=== PATIENT | female | born 1955 | race Caucasian/White ===

== ENCOUNTER 2016-09-19 03:56 | Emergency (ER) | payer MEDICARE, OTHER ==
[~2016-09-19] VITALS: Ht 167.6 cm; Wt 122.0 kg
[~2016-09-19 03:56] MED LIST: ASPI325T PO; BENZ100 PO; CLON0.2T PO; CYCL5TAB PO; ENAL20TA PO; FLUT1SPR5 EACH NARE; IPRA0.02 NEB; LORA1TAB12 PO; METO25TA3 PO; NAPR500T PO; NEBULIZER1 MI1; OMEP40CA2 PO; SOTA120T PO; SPIR25TA PO; SPIRCAP INH; ZOLO25TA PO
[2016-09-19 04:01] VITALS: BP 170/87; PULSE 90; RESP 18; TEMP 97.8; O2SAT 94
[2016-09-19] MEDS ORDERED: ASPIRIN 325 MG TAB PO ONE (05:00)
[2016-09-19] MEDS ORDERED: SODIUM CHLORIDE 0.9% FLUSH 5 ML FLUSH IVF PRN (05:00)
--- NOTE | 2016-09-19 05:24 | RADRPT ---
EXAM DATE/TIME: 09/19/2016 04:55 [facility] COMPARISON: CHEST SINGLE AP, May 01, 2016, 1:57. INDICATIONS : Hypertension. MEDICAL HISTORY : Hypertension. SURGICAL HISTORY : None. ENCOUNTER: Initial ACUITY: 1 day PAIN SCORE: 0/10 LOCATION: Bilateral chest FINDINGS: The cardiac silhouette is enlarged in transverse diameter. The aortic knob is prominent with tortuosi ty of the descending thoracic aorta. There is elevation of the left hemidiaphragm. There has been no significant change when compared to the prior exam. The lungs are free of acute parenchymal opacity. No effusions are identified. CONCLUSION: 1. Cardiomegaly. No acute pulmonary disease. Clarke Hernandez MD on September 19, 2016 at 5:22 Board Certified Radiologist. This report was verified electronically.
[2016-09-19] MEDS: NITROGLYCERIN 0.4 MG SL 25 TABS/BTL SL SCH ×3 (05:31→06:06)
[2016-09-19 05:33] VITALS: BP 233/115; PULSE 65; RESP 18; O2SAT 95
--- NOTE | 2016-09-19 05:41 | PD ---
HPI Chief Complaint: Cardiac Complaint Time Seen by Provider: 04:20 Travel History International Travel<30 days: No Contact w/Intl Traveler<30days: No Traveled to known affect area: No History of Present Illness HPI The the patient 61 years old and arrives complaining of hypertension, labile heart rate, chest "discomfort" palpitations and chronic back pain. Duration is been about 3 days. She also started Zoloft about 3 days prior. She notes her pressure is ranging from 170/110. Labile pulses also been observed evidently region from 40-120. No cough or fever. No nausea vomiting or diaphoresis. PFSH Past Medical History Hx Anticoagulant Therapy: Yes (ASA) Arthritis: Yes Atrial Fibrillation: Yes Anxiety: Yes Depression: No Cardiac Catheterization: No Cardiovascular Problems: Yes (A FIB, HTN, CHF) High Cholesterol: No Congestive Heart Failure: Yes COPD: Yes Diabetes: No Diminished Hearing: No Endocrine: No Gastrointestinal Disorders: Yes GERD: Yes Genitourinary: No Heparin Induced Thrombocytopen: No Hypertension: Yes Immune Disorder: No Implanted Vascular Access Dvce: No Musculoskeletal: Yes (SCOLIOSIS) Neurologic: No Reproductive: No Respiratory: Yes (COPD) Immunizations Current: Yes Myocardial Infarction: No Sickle Cell Disease: No Sleep Apnea: No Thyroid Disease: No Ulcer: No Influenza Vaccination: No Menopausal: Yes : 1 Para: 1 Miscarriage: 0 : 0 Past Surgical History Surgical History: No Previous Surgery Coronary Artery Bypass Graft: No Social History Alcohol Use: No Tobacco Use: No Substance Use: No Allergies-Medications (Allergen,Severity, Reaction): Coded Allergies: Darvocet-N 100 (Verified Allergy, Severe, Swelling, 09/19/16) Swelling, lips , throat Ibuprofen (Verified Allergy, Severe, Swelling, 09/19/16) Swelling lips, throat Morphine (Verified Allergy, Severe, Swelling, 09/19/16) Swelling lips , throat Vicodin (Verified Allergy, Severe, Tachycardia, swelling, 09/19/16) Swelling lips, throat Lortab (Verified Allergy, Intermediate, Chest Pain, 09/19/16) Ventolin (Verified Allergy, Intermediate, Tachycardia, 09/19/16) Amoxicillin (Verified Allergy, Unknown, Atrial Fibrillation, 09/19/16) Protonix (Verified Adverse Reaction, Unknown, Nausea/Vomiting, 09/19/16) Uncoded Allergies: INHALERS FOR COPD (ALL) (Allergy, Severe, PALPITATIONS/DIAPHORESIS, 11/16/13 ) VICOPROFEN (Allergy, Severe, Swelling, 11/16/13) "ANY PAIN PILLS" (Adverse Reaction, Severe, AFIB, 11/16/13) Reported Meds & Prescriptions Reported Meds & Active Scripts Active Zoloft (Sertraline HCl) 25 Mg Tab 25 Mg PO DAILY Take 1 tablet daily x2 weeks and then increase to 2 tablets daily Ipratropium Neb (Ipratropium [place]) 0.5 Mg/2.5 Ml Amp 0.5 Mg NEB Q6HR NEB PRN Lorazepam 1 Mg Tab 1 Mg PO BID PRN Flexeril (Cyclobenzaprine HCl) 5 Mg Tab 1-2 Tab PO HS Reported Omeprazole 40 Mg Cap 40 Mg PO DAILY Nebulizer 1 Mis Mis 1 Ea .ROUTE DIRECTED Flonase Allergy Relief Nasal [place] (Fluticasone Nasal [place]) 50 Mcg/Act [place] 50 Mcg EACH NARE BID Sotalol (Sotalol HCl) 120 Mg Tab 120 Mg PO BID Enalapril (Enalapril Maleate) 20 Mg Tab 20 Mg PO BID Aspirin 325 Mg Tab 325 Mg PO DAILY Review of Systems Except as stated in HPI: all other systems reviewed are Neg Physical Exam Narrative GENERAL: 61-year-old female no acute distress SKIN: Warm and dry. HEAD: Atraumatic. Normocephalic. EYES: Pupils equal and round. No scleral icterus. No injection or drainage. ENT: No nasal bleeding or discharge. Mucous membranes pink and moist. NECK: Trachea midline. No JVD. CARDIOVASCULAR: Regular rate and rhythm. No murmur appreciated. RESPIRATORY: No accessory muscle use. Clear to auscultation. Breath sounds equal bilaterally. GASTROINTESTINAL: Abdomen soft, non-tender, nondistended. Hepatic and splenic margins not palpable. MUSCULOSKELETAL: No obvious deformities. No clubbing. No cyanosis. No edema. NEUROLOGICAL: Awake and alert. No obvious cranial nerve deficits. Motor grossly within normal limits. Normal speech. PSYCHIATRIC: Appropriate mood and affect; insight and judgment normal. Data Data Last Documented VS Vital Signs Date Time Temp Pulse Resp B/P Pulse Ox O2 Delivery O2 Flow Rate FiO2 09/19/16 07:10 56 22 185/85 94 09/19/16 06:15 Nasal Cannula 2 09/19/16 04:01 97.8 Orders Electrocardiogram (09/19/16 04:52) Basic Metabolic Panel (Bmp) (09/19/16 04:52) Ckmb (Isoenzyme) Profile (09/19/16 04:52) Complete Blood Count With Diff (09/19/16 04:52) Magnesium (Mg) (09/19/16 04:52) Prothrombin Time / Inr (Pt) (09/19/16 04:52) Act Partial Throm Time (Ptt) (09/19/16 04:52) Troponin I (09/19/16 04:52) Chest, Single Ap (09/19/16 04:52) Ecg Monitoring (09/19/16 04:52) Iv Access Insert/Monitor (09/19/16 04:52) Oximetry (09/19/16 04:52) Oxygen Administration (09/19/16 04:52) Aspirin (Aspirin) (09/19/16 05:00) Sodium Chloride 0.9% Flush (Ns Flush) (09/19/16 05:00) Nitroglycerin Sl (Nitrostat Sl) (09/19/16 05:00) Enalapril (Vasotec) (09/19/16 05:45) Sotalol (Betapace) (09/19/16 05:42) Labs Laboratory Tests Test 09/19/16 05:30 White Blood Count 9.0 TH/MM3 Red Blood Count 4.81 MIL/MM3 Hemoglobin 13.4 GM/DL Hematocrit 39.3 % Mean Corpuscular Volume 81.7 FL Mean Corpuscular Hemoglobin 27.8 PG Mean Corpuscular Hemoglobin 34.0 % Concent Red Cell Distribution Width 15.2 % Platelet Count 236 TH/MM3 Mean Platelet Volume 8.9 FL Neutrophils (%) (Auto) 71.3 % Lymphocytes (%) (Auto) 19.7 % Monocytes (%) (Auto) 5.8 % Eosinophils (%) (Auto) 2.3 % Basophils (%) (Auto) 0.9 % Neutrophils # (Auto) 6.4 TH/MM3 Lymphocytes # (Auto) 1.8 TH/MM3 Monocytes # (Auto) 0.5 TH/MM3 Eosinophils # (Auto) 0.2 TH/MM3 Basophils # (Auto) 0.1 TH/MM3 CBC Comment DIFF FINAL Differential Comment Prothrombin Time 10.0 SEC Prothromb Time International 0.9 RATIO Ratio Activated Partial 24.9 SEC Thromboplast Time Sodium Level 139 MEQ/L Potassium Level 4.2 MEQ/L Chloride Level 102 MEQ/L Carbon Dioxide Level 30.9 MEQ/L Anion Gap 6 MEQ/L Blood Urea Nitrogen 17 MG/DL Creatinine 0.93 MG/DL Estimat Glomerular Filtration 61 ML/MIN Rate Random Glucose 108 MG/DL Calcium Level 8.8 MG/DL Magnesium Level 2.3 MG/DL Total Creatine Kinase 49 U/L Troponin I LESS THAN 0.02 NG/ML MDM Medical Decision Making Medical Screen Exam Complete: Yes Emergency Medical Condition: Yes Medical Record Reviewed: Yes Differential Diagnosis NSTEMI, unstable angina, coronary vasospasm, PE, PTX, aortic dissection, pericarditis, myocarditis, endocarditis, PNA, esophageal disease, aneurysm, musculoskeletal etiologies, anxiety, cocaine/sympathomimetic abuse Narrative Course CBC & BMP Diagram 09/19/16 05:30 Tn < 0.02 EKG reveals a sinus bradycardia with stable T-wave changes throughout rate 58 normal axis Last 24 hours Impressions Chest X-Ray 09/19/16 0452 Signed Impressions: Service Date/Time: Monday, September 19, 2016 04:55 - CONCLUSION: 1. Cardiomegaly. No acute pulmonary disease. Clarke Hernandez MD Blood pressure has improved. Pt is ready for discharge home. Follow up with primary doctor, Dr Correia. Diagnosis Primary Impression: HTN (hypertension) Qualified Code: I15.9 - Secondary hypertension Additional Impression: Palpitations Referrals: Craig Correia MD 2 days Additional Instructions: You have a choice when it comes to health care, and we are glad that you chose [facility]. Hopefully, we have met your expectations on today's visit. You are welcome to return to [facility] at any time, as we are committed to meeting the health care needs of our community. Med/Other Pt SpecificInfo: No Change to Meds Disposition: DISCHARGE HOME Condition: Stable Thad Bernardo MD Sep 19, 2016 05:41
[2016-09-19] MEDS ORDERED: SOTALOL HCL 80 MG TAB PO STA (05:42)
[2016-09-19] MEDS ORDERED: ENALAPRIL MALEATE 10 MG TAB PO ONE (05:45)
[2016-09-19 05:57] VITALS: BP 204/107; PULSE 61; RESP 18; O2SAT 96
[2016-09-19 05:59] LABS: AUTOMATED NEUTROPHIL # 6.4 TH/MM3 (1.8-7.7); BASOPHIL # 0.1 TH/MM3 (0-0.2); BASOPHIL % 0.9 % (0.0-2.0); EOSINOPHIL # 0.2 TH/MM3 (0-0.4); EOSINOPHIL % 2.3 % (0.0-4.0); HEMATOCRIT 39.3 % (35.0-46.0); HEMO FLAGS DIFF FINAL; LYMPH % 19.7 % (9.0-44.0); LYMPHOCYTE # 1.8 TH/MM3 (1.0-4.8); MEAN CELL VOLUME 81.7 FL (80.0-100.0); MEAN CORPUSCULAR HEMOGLOBIN 27.8 PG (27.0-34.0); MONO % 5.8 % (0.0-8.0); NEUT % 71.3 % (16.0-70.0); PLATELET COUNT 236 TH/MM3 (150-450); RED BLOOD COUNT 4.81 MIL/MM3 (4.00-5.30); RED CELL DISTRIBUTION WIDTH 15.2 % (11.6-17.2)
[2016-09-19 06:04] VITALS: BP 209/104; PULSE 65; RESP 18; O2SAT 98
[2016-09-19 06:15] VITALS: BP 199/97; PULSE 68; RESP 18; O2SAT 95
[2016-09-19 06:18] LABS: APTT (PATIENT) 24.9 SEC (24.3-30.1); INTERNATIONAL NORMALIZED RATIO 0.9 RATIO
[2016-09-19 06:22] LABS: ANION GAP 6 MEQ/L (5-15); BICARBONATE 30.9 MEQ/L (21.0-32.0); BLOOD UREA NITROGEN 17 MG/DL (7-18); CHLORIDE 102 MEQ/L (98-107); GLOMERULAR FILTRATION RATE 61 ML/MIN (>89); MAGNESIUM 2.3 MG/DL (1.5-2.5); POTASSIUM 4.2 MEQ/L (3.5-5.1); SODIUM (NA) 139 MEQ/L (136-145)
[2016-09-19 06:26] LABS: CREATINE KINASE 49 U/L (26-192)
[2016-09-19 07:10] VITALS: BP 185/85
--- NOTE | 2016-09-19 17:20 | EKG ---
Date Performed: 09/19/2016 Time Performed: 04:26:44 PTAGE: 61 years EKG: SINUS BRADYCARDIA NONSPECIFIC ST & T-WAVE ABNORMALITY Compared to previous tracing, ST-T ch anges slightly improved inferiorly and anteriorly, otherwise no significant change BORDERLINE ECG PREVIOUS TRACING : 07/31/2016 12.59 DOCTOR: Dejuan Stone Interpretating Date/Time 09/19/2016 17:19:48
[2016-09-21] MEDS ORDERED: CLON0.1T PO (10:55)
[2016-10-02] MEDS ORDERED: HYDR10TA23 PO (15:21)
[2016-10-23] MEDS ORDERED: OMEP40CA2 PO (15:27)
[2016-11-03] MEDS ORDERED: LORA1TAB12 PO (16:58)
[2016-11-06] MEDS ORDERED: POTA-163 PO (11:55)
[2016-11-06] MEDS ORDERED: FURO40TA PO (11:55)
[2016-11-13] MEDS ORDERED: FURO1TAB62 PO (11:59)
[2016-12-14] MEDS ORDERED: FURO1TAB62 PO (11:52)
[2016-12-14] MEDS ORDERED: CEPH-460 PO (11:52)
[2016-12-14] MEDS ORDERED: SYMB80AE INH (11:52)
[2016-12-14] MEDS ORDERED: DOXY1LIQ3 PO (11:55)
[2016-12-23] MEDS ORDERED: PRED20 PO (15:03)
[2017-01-25] MEDS ORDERED: MELA1TAB18 PO (10:52)
[2017-01-25] MEDS ORDERED: NYST15T TOPICAL (11:02)
== END 2016-09-19 08:06 | disposition home or self-care (01) ==
LOC: NEPE 03:56
DX: I10 Essential (primary) hypertension (principal); R00.2 Palpitations; M54.9 Dorsalgia, unspecified; G89.29 Other chronic pain; R07.89 Other chest pain; I50.9 Heart failure, unspecified; I48.91 Unspecified atrial fibrillation; J44.9 Chronic obstructive pulmonary disease, unspecified; K21.9 Gastro-esophageal reflux disease without esophagitis; R00.1 Bradycardia, unspecified; Z79.01 Long term (current) use of anticoagulants
CPT/HCPCS: 71010; 80048; 82550; 83735; 84484; 85025; 85610; 85730; 93005

== ENCOUNTER 2016-10-07 14:08 | Emergency (ER) | payer MEDICARE, OTHER ==
[~2016-10-07] VITALS: Ht 170.2 cm; Wt 120.0 kg
[~2016-10-07 14:08] MED LIST changes: -BENZ100 PO; -CLON0.2T PO; +HYDR10TA23 PO; -METO25TA3 PO; -NAPR500T PO; -SPIR25TA PO; -SPIRCAP INH
[2016-10-07 14:13] VITALS: BP 177/86; PULSE 63; RESP 14; O2SAT 96
[2016-10-07 15:28] LABS: BASOPHIL # 0.1 TH/MM3 (0-0.2); BASOPHIL % 1.1 % (0.0-2.0); EOSINOPHIL # 0.2 TH/MM3 (0-0.4); EOSINOPHIL % 2.7 % (0.0-4.0); HEMO FLAGS DIFF FINAL; LYMPH % 19.4 % (9.0-44.0); LYMPHOCYTE # 1.7 TH/MM3 (1.0-4.8); MEAN CELL VOLUME 83.3 FL (80.0-100.0); MEAN CORPUSCULAR HEMOGLOBIN 27.3 PG (27.0-34.0); MEAN CORPUSCULAR HGB CONC 32.8 % (32.0-36.0); NEUT % 69.8 % (16.0-70.0); PLATELET COUNT 216 TH/MM3 (150-450); RED BLOOD COUNT 4.68 MIL/MM3 (4.00-5.30); RED CELL DISTRIBUTION WIDTH 15.6 % (11.6-17.2); WHITE BLOOD COUNT 8.6 TH/MM3 (4.0-11.0)
--- NOTE | 2016-10-07 15:28 | PD ---
HPI Chief Complaint: Chest Pain Time Seen by Provider: 15:22 Travel History International Travel<30 days: No Contact w/Intl Traveler<30days: No Traveled to known affect area: No History of Present Illness HPI Patient is a 61-year-old female presenting to emergency department for evaluation of palpitations. Patient states the palpitations woke her up out of sleep this morning. Patient went to her primary doctor this morning due to the palpitations who then sent her to her adaptive physical educator's office. When she got to the adaptive physical educator office she was told that there was nothing they could do and to come to the emergency department. Patient denies any chest pain currently she states that she feels short of breath and flushed has no other complaints at this time. Patient states she went to her adaptive physical educator Dr. Silverman yesterday and her hydralazine was increased from 3 times a day to 4 times a day in order to control her blood pressure. She reports taking aspirin 325 mg several times daily for pain. She denies any caffeine intake or supplements. She states that she did eat 6 chocolate eggs last night. PFSH Past Medical History Hx Anticoagulant Therapy: Yes (ASA) Arthritis: Yes Atrial Fibrillation: Yes Anxiety: Yes Depression: No Cardiac Catheterization: No Cardiovascular Problems: Yes High Cholesterol: No Congestive Heart Failure: Yes COPD: Yes Diabetes: No Diminished Hearing: No Endocrine: No Gastrointestinal Disorders: Yes GERD: Yes Genitourinary: No Heparin Induced Thrombocytopen: No Hypertension: Yes Immune Disorder: No Implanted Vascular Access Dvce: No Musculoskeletal: Yes (SCOLIOSIS) Neurologic: No Reproductive: No Respiratory: Yes Immunizations Current: Yes Myocardial Infarction: No Sickle Cell Disease: No Sleep Apnea: No Thyroid Disease: No Ulcer: No Menopausal: Yes : 1 Para: 1 Miscarriage: 0 : 0 Past Surgical History Coronary Artery Bypass Graft: No Social History Alcohol Use: No Tobacco Use: No Substance Use: No Allergies-Medications (Allergen,Severity, Reaction): Coded Allergies: Darvocet-N 100 (Verified Allergy, Severe, Swelling, 10/12/16) Swelling, lips , throat Ibuprofen (Verified Allergy, Severe, Swelling, 10/12/16) Swelling lips, throat Morphine (Verified Allergy, Severe, Swelling, 10/12/16) Swelling lips , throat Vicodin (Verified Allergy, Severe, Tachycardia, swelling, 10/12/16) Swelling lips, throat Lortab (Verified Allergy, Intermediate, Chest Pain, 10/12/16) Ventolin (Verified Allergy, Intermediate, Tachycardia, 10/12/16) Amoxicillin (Verified Allergy, Unknown, Atrial Fibrillation, 10/12/16) Zoloft (Verified Allergy, Unknown, 10/12/16) Protonix (Verified Adverse Reaction, Unknown, Nausea/Vomiting, 10/12/16) Uncoded Allergies: INHALERS FOR COPD (ALL) (Allergy, Severe, PALPITATIONS/DIAPHORESIS, 11/16/13 ) VICOPROFEN (Allergy, Severe, Swelling, 11/16/13) "ANY PAIN PILLS" (Adverse Reaction, Severe, AFIB, 11/16/13) Reported Meds & Prescriptions Reported Meds & Active Scripts Active Ipratropium Neb (Ipratropium [place]) 0.5 Mg/2.5 Ml Amp 0.5 Mg NEB Q6HR NEB PRN Lorazepam 1 Mg Tab 1 Mg PO BID PRN Reported Hydralazine (Hydralazine HCl) 10 Mg Tab 10 Mg PO QID Take with a meal Omeprazole 40 Mg Cap 40 Mg PO DAILY Nebulizer 1 Mis Mis 1 Ea .ROUTE DIRECTED Flonase Nasal [place] (Fluticasone Nasal [place]) 50 Mcg/Act [place] 50 Mcg EACH NARE BID Sotalol (Sotalol HCl) 120 Mg Tab 120 Mg PO BID Enalapril (Enalapril Maleate) 20 Mg Tab 20 Mg PO BID Aspirin 325 Mg Tab 325 Mg PO DAILY Review of Systems Except as stated in HPI: all other systems reviewed are Neg Cardiovascular: Positive: Other (flushed feeling) Respiratory: Positive: Shortness of Breath Physical Exam Narrative GENERAL: Obese, well-developed, alert female. Resting comfortably in no acute distress. SKIN: Warm and dry. HEAD: Atraumatic. Normocephalic. EYES: Pupils equal and round. No scleral icterus. No injection or drainage. ENT: No nasal bleeding or discharge. Mucous membranes pink and moist. NECK: Trachea midline. No JVD. CARDIOVASCULAR: Regular rate and rhythm. No murmur appreciated. RESPIRATORY: No accessory muscle use. Clear to auscultation. Breath sounds equal bilaterally. GASTROINTESTINAL: Abdomen obese, soft, non-tender, nondistended. Hepatic and splenic margins not palpable. MUSCULOSKELETAL: No obvious deformities. No clubbing. No cyanosis. No edema. NEUROLOGICAL: Awake and alert. No obvious cranial nerve deficits. Motor grossly within normal limits. Normal speech. PSYCHIATRIC: Appropriate mood and affect; insight and judgment normal. Data Data Last Documented VS Orders Electrocardiogram (10/07/16 14:47) Ckmb (Isoenzyme) Profile (10/07/16 14:47) Complete Blood Count With Diff (10/07/16 14:47) Comprehensive Metabolic Panel (10/07/16 14:47) Magnesium (Mg) (10/07/16 14:47) Prothrombin Time / Inr (Pt) (10/07/16 14:47) Act Partial Throm Time (Ptt) (10/07/16 14:47) Troponin I (10/07/16 14:47) Chest, Pa & Lat (10/07/16 14:47) Thyroid Stimulating Hormone (10/07/16 14:49) Free Thyroxine (T4) (10/07/16 14:49) Urinalysis - C+S If Indicated (10/07/16 14:49) Hydralazine Inj (Apresoline Inj) (10/07/16 16:30) MDM Medical Decision Making Medical Screen Exam Complete: Yes Emergency Medical Condition: Yes Interpretation(s) Vital Signs Date Time Temp Pulse Resp B/P Pulse Ox O2 Delivery O2 Flow Rate FiO2 10/07/16 14:13 63 14 177/86 96 Room Air Differential Diagnosis Palpitations versus electrolyte abnormality versus thyroid disorder versus arrhythmia versus other Narrative Course Patient is a 61-year-old female presenting to emergency Department for evaluation of palpitations that woke her out of sleep this morning. EKG, labs, imaging ordered and pending. Workup initiated in triage, care patient will be transferred to a provider when a medical bed is available. Cyndie Bhatti Oct 07, 2016 15:28 arrhythmia versus other Narrative Course Patient is a 61-year-old female presenting to emergency Department for evaluation of palpitations that woke her out of sleep this morning. EKG, labs, imaging ordered and pending. Workup initiated in triage, care patient will be transferred to a provider when a medical bed is available. Cyndie Bhatti Oct 07, 2016 15:28
--- NOTE | 2016-10-07 15:45 | RADRPT ---
EXAM DATE/TIME: 10/07/2016 15:17 [facility] COMPARISON: CHEST PA & LAT, June 30, 2016, 22:08. INDICATIONS : Palpitations. MEDICAL HISTORY : Chronic obstructive pulmonary disease. Congestive heart failure. Hypertension. SURGICAL HISTORY : None. ENCOUNTER: Initial ACUITY: 2 weeks PAIN SCORE: 1/10 LOCATION: Bilateral chest FINDINGS: Frontal and lateral views of the chest demonstrate normal size cardiac silhouette. Lungs are underinf lated and there is a chronically elevated left hemidiaphragm with atelectasis at the left lung base. No pleural effusion, airspace consolidation, or pneumothorax is identified. Bones and soft tissues de monstrate no acute finding. CONCLUSION: Stable chest x-ray with chronically elevated hemidiaphragm and atelectasis at the left lung base. No acute finding is visualized. Festus Valerio MD on October 07, 2016 at 15:41 Board Certified Radiologist. This report was verified electronically.
[2016-10-07 15:47] LABS: BACTERIA, URINE OCC /hpf; BLOOD, URINE NEG (NEG); COMMENT (UR) CULT NOT INDICATED; CULTURE IF INDICATED CULT NOT INDICATED; GLUCOSE,URINE NEG (NEG); KETONE, URINE NEG (NEG); NITRITE,URINE NEG (NEG); PH, URINE 5.5 (5.0-8.5); SQUAMOUS EPITHELIAL CELL URINE <1 /hpf (0-5); URINE COLOR LIGHT-YELLOW (YELLW/STRAW)
[2016-10-07 15:48] LABS: ALT (GPT) 13 U/L (10-53); ANION GAP 8 MEQ/L (5-15); AST (GOT) 9 U/L (15-37); BICARBONATE 28.5 MEQ/L (21.0-32.0); BLOOD UREA NITROGEN 13 MG/DL (7-18); CHLORIDE 105 MEQ/L (98-107); GLOMERULAR FILTRATION RATE 72 ML/MIN (>89); MAGNESIUM 2.2 MG/DL (1.5-2.5); POTASSIUM 4.2 MEQ/L (3.5-5.1); SODIUM (NA) 141 MEQ/L (136-145)
[2016-10-07 15:52] LABS: ALKALINE PHOSPHATASE 89 U/L (45-117); APTT (PATIENT) 24.5 SEC (24.3-30.1); INTERNATIONAL NORMALIZED RATIO 0.9 RATIO; TOTAL BILIRUBIN ADULT 0.3 MG/DL (0.2-1.0)
[2016-10-07 15:58] LABS: FREE T4 1.16 NG/DL (0.76-1.46)
[2016-10-07 16:03] LABS: CREATINE KINASE 35 U/L (26-192)
[2016-10-07 16:05] VITALS: BP 203/103; PULSE 60; RESP 16; O2SAT 95
--- NOTE | 2016-10-07 16:25 | PD ---
Physical Exam Date Seen by Provider: Oct 07, 2016 Time Seen by Provider: 16:20 Narrative 61-year-old female presents to the emergency department for evaluation of palpitations and hypertension. Patient reports history of palpitations. She states these are similar to her previous palpitations. Patient went to her manager documentation's office, but she cannot be seen by her manager documentation, Dr. Silverman so she went to another manager documentation's office who sent her to the emergency department. She currently denies any chest pain. She states that she did have some left upper abdominal pain after eating beans yesterday. However, this went away after she passed gas and burped. She denies any current chest pain. Patient states that she is currently on Enalapril, sotalol , hydralazine for her blood pressure. She did miss her 11 AM dose of hydralazine today. She states her blood pressure has been elevated. Patient states her last stress test was approximately 3 years ago. She denies any history of cardiac catheterization. Patient's workup was initiated in triage is transferred to medical [facility] for further evaluation and disposition. GENERAL: Well-developed well-nourished female patient, ambulatory. Afebrile. SKIN: Warm and dry. HEAD: Normocephalic. Atraumatic. EYES: No scleral icterus. No injection or drainage. NECK: Supple, trachea midline. No JVD or lymphadenopathy. CARDIOVASCULAR: Regular rate and rhythm without murmurs, gallops, or rubs. RESPIRATORY: Breath sounds equal bilaterally. No accessory muscle use. Lungs sounds are clear to auscultation. GASTROINTESTINAL: Abdomen soft, non-tender, nondistended. MUSCULOSKELETAL: No cyanosis, or edema. BACK: Nontender without obvious deformity. No CVA tenderness. Data Data Last Documented VS Vital Signs Date Time Temp Pulse Resp B/P Pulse Ox O2 Delivery O2 Flow Rate FiO2 10/07/16 18:34 69 16 177/83 100 Room Air Orders Electrocardiogram (10/07/16 14:47) Ckmb (Isoenzyme) Profile (10/07/16 14:47) Complete Blood Count With Diff (10/07/16 14:47) Comprehensive Metabolic Panel (10/07/16 14:47) Magnesium (Mg) (10/07/16 14:47) Prothrombin Time / Inr (Pt) (10/07/16 14:47) Act Partial Throm Time (Ptt) (10/07/16 14:47) Troponin I (10/07/16 14:47) Chest, Pa & Lat (10/07/16 14:47) Thyroid Stimulating Hormone (10/07/16 14:49) Free Thyroxine (T4) (10/07/16 14:49) Urinalysis - C+S If Indicated (10/07/16 14:49) Hydralazine Inj (Apresoline Inj) (10/07/16 16:30) Labs Laboratory Tests Test 10/07/16 10/07/16 14:55 15:00 White Blood Count 8.6 TH/MM3 Red Blood Count 4.68 MIL/MM3 Hemoglobin 12.8 GM/DL Hematocrit 39.0 % Mean Corpuscular Volume 83.3 FL Mean Corpuscular Hemoglobin 27.3 PG Mean Corpuscular Hemoglobin 32.8 % Concent Red Cell Distribution Width 15.6 % Platelet Count 216 TH/MM3 Mean Platelet Volume 8.7 FL Neutrophils (%) (Auto) 69.8 % Lymphocytes (%) (Auto) 19.4 % Monocytes (%) (Auto) 7.0 % Eosinophils (%) (Auto) 2.7 % Basophils (%) (Auto) 1.1 % Neutrophils # (Auto) 6.0 TH/MM3 Lymphocytes # (Auto) 1.7 TH/MM3 Monocytes # (Auto) 0.6 TH/MM3 Eosinophils # (Auto) 0.2 TH/MM3 Basophils # (Auto) 0.1 TH/MM3 CBC Comment DIFF FINAL Differential Comment Prothrombin Time 10.0 SEC Prothromb Time International 0.9 RATIO Ratio Activated Partial 24.5 SEC Thromboplast Time Sodium Level 141 MEQ/L Potassium Level 4.2 MEQ/L Chloride Level 105 MEQ/L Carbon Dioxide Level 28.5 MEQ/L Anion Gap 8 MEQ/L Blood Urea Nitrogen 13 MG/DL Creatinine 0.81 MG/DL Estimat Glomerular Filtration 72 ML/MIN Rate Random Glucose 89 MG/DL Calcium Level 9.0 MG/DL Magnesium Level 2.2 MG/DL Total Bilirubin 0.3 MG/DL Aspartate Amino Transf 9 U/L (AST/SGOT) Alanine Aminotransferase 13 U/L (ALT/SGPT) Alkaline Phosphatase 89 U/L Total Creatine Kinase 35 U/L Troponin I LESS THAN 0.02 NG/ML Total Protein 6.7 GM/DL Albumin 3.6 GM/DL Free Thyroxine 1.16 NG/DL Thyroid Stimulating Hormone 3.270 uIU/ML 3rd Gen Urine Color LIGHT-YELLOW Urine Turbidity CLEAR Urine pH 5.[address] [place] 1.008 Urine Protein NEG mg/dL Urine Glucose (UA) NEG mg/dL Urine Ketones NEG mg/dL Urine Occult Blood NEG Urine Nitrite NEG Urine Bilirubin NEG Urine Urobilinogen LESS THAN 2.0 MG/DL Urine Leukocyte Esterase SMALL Urine RBC LESS THAN 1 /hpf Urine WBC 3 /hpf Urine Squamous Epithelial <1 /hpf Cells Urine Bacteria OCC /hpf Microscopic Urinalysis Comment CULT NOT INDICATED MDM Medical Record Reviewed: Yes Supervised Visit with CHARLA: No Differential Diagnosis Cardiac arrhythmia versus atrial for ablation versus hypertension versus ACS versus anxiety Narrative Course 61-year-old female who is a patient of Dr. Silverman's presents to the emergency department for evaluation of palpitations and hypertension. She did miss her 11 AM dose of hydralazine. EKG shows sinus rhythm, heart rate 61, no acute ST changes. CBC shows unremarkable. CMP is unremarkable. Magnesium is 2.2. CK is 35. Troponin is less than 0.02. TSH is 3.270. Coags are unremarkable. Urinalysis shows no acute infection. Patient's blood pressure is elevated 203/103. Patient is given hydralazine [address] Silverman is paged due to this being her patient and she is familiar with her. I spoke to Dr. Silverman who knows the patient very well. She says that she saw her yesterday in the office. She states the patient is stable for discharge home. Patient verbalizes agreement. She will follow up with Dr. Silverman. Diagnosis Primary Impression: HTN (hypertension) Qualified Code: I10 - Essential hypertension Referrals: Malathi Silverman MD call for appointment Patient Instructions: Chronic Hypertension (ED), General Instructions Additional Instruction: Continue medications as prescribed. Follow-up with Dr. Silverman. Return to the emergency department for any acute worsening of symptoms. Med/Other Pt SpecificInfo: No Change to Meds Disposition: 01 DISCHARGE HOME Condition: Stable Nataliia Camejo Oct 07, 2016 16:25
[2016-10-07] MEDS ORDERED: hydrALAZINE HCL 20 MG/ML VIAL IV PUSH ONE (16:30)
[2016-10-07 17:18] VITALS: BP 186/80; PULSE 60; RESP 16; O2SAT 95
[2016-10-07] MEDS ORDERED: HYDR10TA23 PO (17:18)
[2016-10-07 17:54] VITALS: BP 188/96; PULSE 69; RESP 22; O2SAT 97
[2016-10-07 18:34] VITALS: BP 177/83; PULSE 69; RESP 16; O2SAT 100
--- NOTE | 2016-10-08 10:40 | EKG ---
Date Performed: 10/07/2016 Time Performed: 15:00:22 PTAGE: 61 years EKG: Sinus rhythm NONSPECIFIC ST & T-WAVE ABNORMALITY BORDERLINE ECG PREVIOUS TRACING : 09/19/2016 04.26 Compared to prior tracing no significant change DOCTOR: Keith Chew Interpretating Date/Time 10/08/2016 10:39:02
[2016-10-23] MEDS ORDERED: OMEP40CA2 PO (15:27)
[2016-11-03] MEDS ORDERED: LORA1TAB12 PO (16:58)
[2016-11-06] MEDS ORDERED: POTA-163 PO (11:55)
[2016-11-06] MEDS ORDERED: FURO40TA PO (11:55)
[2016-11-13] MEDS ORDERED: FURO1TAB62 PO (11:59)
[2016-12-14] MEDS ORDERED: SYMB80AE INH (11:52)
[2016-12-14] MEDS ORDERED: CEPH-460 PO (11:52)
[2016-12-14] MEDS ORDERED: FURO1TAB62 PO (11:52)
[2016-12-14] MEDS ORDERED: DOXY1LIQ3 PO (11:55)
[2016-12-23] MEDS ORDERED: PRED20 PO (15:03)
[2017-01-25] MEDS ORDERED: MELA1TAB18 PO (10:52)
[2017-01-25] MEDS ORDERED: NYST15T TOPICAL (11:02)
== END 2016-10-07 19:27 | disposition home or self-care (01) ==
LOC: NEPE 14:08
DX: I10 Essential (primary) hypertension (principal); I48.91 Unspecified atrial fibrillation; I50.9 Heart failure, unspecified; Z79.82 Long term (current) use of aspirin
CPT/HCPCS: 71020; 80053; 81001; 82550; 83735; 84439; 84443; 84484; 85025; 85610; 85730; 93005; 96374; 99285; J0360

== ENCOUNTER 2016-12-01 17:43 | Emergency (ER) | payer MEDICARE, OTHER ==
[~2016-12-01] VITALS: Ht 167.6 cm; Wt 129.0 kg
[~2016-12-01 17:43] MED LIST changes: -CYCL5TAB PO; +FURO1TAB62 PO; +POTA-163 PO; -ZOLO25TA PO
[2016-12-01 17:46] VITALS: BP 166/98; PULSE 51; RESP 16; TEMP 98.1; O2SAT 97
--- NOTE | 2016-12-01 17:48 | PD ---
Physical Exam Time Seen by Provider: 17:47 Narrative 61 y/o female presents for evaluation of lightheadedness. She reports that she checked her HR and it was fluctuating between 30-50. Vital signs reviewed. Seen at triage desk. Awaiting bed placement. Data Data Last Documented VS Vital Signs Date Time Temp Pulse Resp B/P Pulse Ox O2 Delivery O2 Flow Rate FiO2 12/01/16 17:46 98.1 51 16 166/98 97 MDM Medical Record Reviewed: Yes Supervised Visit with CHALRA: Junior Hines December 01, 2016 17:48
[2016-12-01] MEDS ORDERED: SODIUM CHLORIDE 0.9% FLUSH 10 ML FLUSH IVF PRN (18:15)
--- NOTE | 2016-12-01 18:23 | PD ---
HPI Chief Complaint: Chest Pain Time Seen by Provider: 18:20 Travel History International Travel<30 days: No Contact w/Intl Traveler<30days: No Traveled to known affect area: No History of Present Illness HPI Patient comes in for evaluation of pulse from the 40s and 50s over the past 2 days. Patient states she thinks is secondary to being started on hydralazine a month ago. Patient checks her blood pressure and pulse frequently throughout the day states its normally in the in the low 50s to low 60s over the past but it has been in the 40s and 50s. Patient reports one episode where she noted her pulse was 39. Patient states this occurred while she had been sitting for approximately 2 hours and then checked her pulse and blood pressure. Patient states after this she got up to go to the bathroom and when she went from sitting to standing she did feel little lightheaded briefly. Patient denies any chest pain, shortness of breath, nausea, vomiting, new numbness or tingling , back pain, headache, dizziness, or change in vision. PFSH Past Medical History Hx Anticoagulant Therapy: Yes (ASA) Arthritis: Yes Atrial Fibrillation: Yes Anxiety: Yes Depression: No Cardiac Catheterization: No Cardiovascular Problems: Yes High Cholesterol: No Congestive Heart Failure: Yes COPD: Yes Diabetes: No Diminished Hearing: No Endocrine: No Gastrointestinal Disorders: Yes GERD: Yes Genitourinary: No Heparin Induced Thrombocytopen: No Hypertension: Yes Immune Disorder: No Implanted Vascular Access Dvce: No Musculoskeletal: Yes (SCOLIOSIS) Neurologic: No Reproductive: No Respiratory: Yes Immunizations Current: Yes Myocardial Infarction: No Sickle Cell Disease: No Sleep Apnea: No Thyroid Disease: No Ulcer: No Menopausal: Yes : 1 Para: 1 Miscarriage: 0 : 0 Past Surgical History Coronary Artery Bypass Graft: No Social History Alcohol Use: No Tobacco Use: No Substance Use: No Allergies-Medications (Allergen,Severity, Reaction): Coded Allergies: Darvocet-N 100 (Verified Allergy, Severe, Swelling, 12/01/16) Swelling, lips , throat Ibuprofen (Verified Allergy, Severe, Swelling, 12/01/16) Swelling lips, throat Morphine (Verified Allergy, Severe, Swelling, 12/01/16) Swelling lips , throat Vicodin (Verified Allergy, Severe, Tachycardia, swelling, 12/01/16) Swelling lips, throat Lortab (Verified Allergy, Intermediate, Chest Pain, 12/01/16) Ventolin (Verified Allergy, Intermediate, Tachycardia, 12/01/16) Amoxicillin (Verified Allergy, Unknown, Atrial Fibrillation, 12/01/16) Zoloft (Verified Allergy, Unknown, 12/01/16) Protonix (Verified Adverse Reaction, Unknown, Nausea/Vomiting, 12/01/16) Uncoded Allergies: INHALERS FOR COPD (ALL) (Allergy, Severe, PALPITATIONS/DIAPHORESIS, 11/16/13 ) VICOPROFEN (Allergy, Severe, Swelling, 11/16/13) "ANY PAIN PILLS" (Adverse Reaction, Severe, AFIB, 11/16/13) Reported Meds & Prescriptions Reported Meds & Active Scripts Active Lasix (Furosemide) 20 Mg Tab 20 Mg PO DAILY PRN Lorazepam 1 Mg Tab 1 Mg PO BID PRN Ipratropium Neb (Ipratropium [place]) 0.5 Mg/2.5 Ml Amp 0.5 Mg NEB Q6HR NEB PRN Reported Ranitidine (Ranitidine HCl) 150 Mg Tab 150 Mg PO BID Omeprazole 40 Mg Cap 40 Mg PO DAILY PRN Hydralazine (Hydralazine HCl) 10 Mg Tab 10 Mg PO QID Take with a meal Flonase Nasal [place] (Fluticasone Nasal [place]) 50 Mcg/Act [place] 1 [place] EACH NARE BID PRN Sotalol (Sotalol HCl) 120 Mg Tab 120 Mg PO BID Enalapril (Enalapril Maleate) 20 Mg Tab 20 Mg PO BID Aspirin 325 Mg Tab 325 Mg PO QID PRN Review of Systems Except as stated in HPI: all other systems reviewed are Neg Physical Exam Narrative GENERAL: Well-developed, overly nourished, in no acute distress, and non-ill appearing. SKIN: Focused skin assessment warm and dry. HEAD: Atraumatic. Normocephalic. EYES: Pupils equal and round. EOMI. No scleral icterus. No injection or drainage. ENT: No nasal bleeding or discharge. Mucous membranes pink and moist. NECK: Trachea midline. Supple. No nuclear rigidity. CARDIOVASCULAR: Regular rate and rhythm. No murmur appreciated. RESPIRATORY: No accessory muscle use. No respiratory distress. Clear to auscultation. Breath sounds equal bilaterally. MUSCULOSKELETAL: No obvious deformities. No clubbing. No cyanosis. No edema. Full range of motion. NEUROLOGICAL: Awake and alert. No obvious cranial nerve deficits. Motor grossly within normal limits. Normal speech. PSYCHIATRIC: Appropriate mood and affect; insight and judgment normal. Data Data Last Documented VS Vital Signs Date Time Temp Pulse Resp B/P Pulse Ox O2 Delivery O2 Flow Rate FiO2 12/01/16 19:04 98.1 52 18 132/63 98 Room Air Orders Electrocardiogram (12/01/16 18:10) Basic Metabolic Panel (Bmp) (12/01/16 18:10) Complete Blood Count With Diff (12/01/16 18:10) Magnesium (Mg) (12/01/16 18:10) Ckmb (Isoenzyme) Profile (12/01/16 18:10) Troponin I (12/01/16 18:10) Act Partial Throm Time (Ptt) (12/01/16 18:10) Prothrombin Time / Inr (Pt) (12/01/16 18:10) Urinalysis - C+S If Indicated (12/01/16 18:10) Chest, Single Ap (12/01/16 18:10) Ecg Monitoring (12/01/16 18:10) Iv Access Insert/Monitor (12/01/16 18:10) Oximetry (12/01/16 18:10) Sodium Chloride 0.9% Flush (Ns Flush) (12/01/16 18:15) Orthostatic Vital Signs (12/01/16 18:10) Labs Laboratory Tests Test 12/01/16 18:30 White Blood Count 8.7 TH/MM3 Red Blood Count 4.92 MIL/MM3 Hemoglobin 13.2 GM/DL Hematocrit 40.6 % Mean Corpuscular Volume 82.6 FL Mean Corpuscular Hemoglobin 26.9 PG Mean Corpuscular Hemoglobin 32.5 % Concent Red Cell Distribution Width 15.2 % Platelet Count 241 TH/MM3 Mean Platelet Volume 8.7 FL Neutrophils (%) (Auto) 75.2 % Lymphocytes (%) (Auto) 15.9 % Monocytes (%) (Auto) 5.7 % Eosinophils (%) (Auto) 2.5 % Basophils (%) (Auto) 0.7 % Neutrophils # (Auto) 6.5 TH/MM3 Lymphocytes # (Auto) 1.4 TH/MM3 Monocytes # (Auto) 0.5 TH/MM3 Eosinophils # (Auto) 0.2 TH/MM3 Basophils # (Auto) 0.1 TH/MM3 CBC Comment DIFF FINAL Differential Comment Prothrombin Time 10.3 SEC Prothromb Time International 0.9 RATIO Ratio Activated Partial 24.7 SEC Thromboplast Time Urine Color LIGHT-YELLOW Urine Turbidity CLEAR Urine pH 6.5 Urine Specific [place] 1.004 Urine Protein NEG mg/dL Urine Glucose (UA) NEG mg/dL Urine Ketones NEG mg/dL Urine Occult Blood NEG Urine Nitrite NEG Urine Bilirubin NEG Urine Urobilinogen LESS THAN 2.0 MG/DL Urine Leukocyte Esterase NEG Microscopic Urinalysis Comment CULT NOT INDICATED Sodium Level 141 MEQ/L Potassium Level 4.6 MEQ/L Chloride Level 102 MEQ/L Carbon Dioxide Level 31.1 MEQ/L Anion Gap 8 MEQ/L Blood Urea Nitrogen 17 MG/DL Creatinine 0.97 MG/DL Estimat Glomerular Filtration 58 ML/MIN Rate Random Glucose 98 MG/DL Calcium Level 8.7 MG/DL Magnesium Level 2.5 MG/DL Total Creatine Kinase 33 U/L Troponin I LESS THAN 0.02 NG/ML MDM Medical Decision Making Medical Screen Exam Complete: Yes Emergency Medical Condition: Yes Interpretation(s) EKG reviewed by Dr. Davis shows sinus bradycardia with ventricular rate of 51. No STEMI. Differential Diagnosis Arrhythmia, electrolyte abnormality, sick sinus syndrome, bradycardia, other Narrative Course Patient in no obvious distress upon re-evaluation. All pertinent laboratory/ Radiology result(s) discussed with patient. Discussed patient with Dr. Gomez prior to discharge, who is in agreement with plan of care and disposition. Any questions/concerns in reference to patient diagnosis/condition discussed and clarified prior to patient's discharge. Reinforced sheer importance of close follow up with patient's primary physician or primary care clinic and/or what job titles mean. Instructed patient to return to ED immediately, if symptoms return /worsen. Pt showed understanding of above instructions. Further instructions and recommendations were detailed in discharge paperwork. Pt ambulated without difficulty out of ED at discharge. Diagnosis Primary Impression: Bradycardia Patient Instructions: Bradycardia (ED), General Instructions Additional Instructions: Follow-up with your primary care physician and/or what job titles mean in 1-2 days for reevaluation. Return to the emergency department if symptoms get worse. Disposition: 01 DISCHARGE HOME Condition: Stable Ozzie Van December 01, 2016 18:23
[2016-12-01 18:36] VITALS: BP_SYST 138; BP_SYST 139; BP_SYST 144; BP_DIAS 78; BP_DIAS 82; BP_DIAS 84
[2016-12-01 18:38] VITALS: O2SAT 99
[2016-12-01 18:42] VITALS: BP 138/78; PULSE 57; O2SAT 96
[2016-12-01 18:53] LABS: AUTOMATED NEUTROPHIL # 6.5 TH/MM3 (1.8-7.7); BASOPHIL # 0.1 TH/MM3 (0-0.2); BASOPHIL % 0.7 % (0.0-2.0); EOSINOPHIL # 0.2 TH/MM3 (0-0.4); EOSINOPHIL % 2.5 % (0.0-4.0); HEMATOCRIT 40.6 % (35.0-46.0); HEMO FLAGS DIFF FINAL; LYMPH % 15.9 % (9.0-44.0); LYMPHOCYTE # 1.4 TH/MM3 (1.0-4.8); MEAN CELL VOLUME 82.6 FL (80.0-100.0); MEAN CORPUSCULAR HEMOGLOBIN 26.9 PG (27.0-34.0); MEAN CORPUSCULAR HGB CONC 32.5 % (32.0-36.0); MONO % 5.7 % (0.0-8.0); NEUT % 75.2 % (16.0-70.0); PLATELET COUNT 241 TH/MM3 (150-450); RED BLOOD COUNT 4.92 MIL/MM3 (4.00-5.30); RED CELL DISTRIBUTION WIDTH 15.2 % (11.6-17.2); WHITE BLOOD COUNT 8.7 TH/MM3 (4.0-11.0)
--- NOTE | 2016-12-01 18:56 | RADRPT ---
EXAM DATE/TIME: 12/01/2016 18:30 [facility] COMPARISON: CHEST PA & LAT, October 07, 2016, 15:17. CHEST SINGLE AP, September 19, 2016, 4:55. INDICATIONS : Chest pressure today. MEDICAL HISTORY : Chronic obstructive pulmonary disease. Congestive heart failure. Hypertension. Atrial fibrillation. SURGICAL HISTORY : None. ENCOUNTER: Initial ACUITY: 1 day PAIN SCORE: 2/10 LOCATION: Bilateral chest FINDINGS: There is elevation of the left hemidiaphragm. This configuration is unchanged. It does obscure the l eft heart border making evaluation of the heart size difficult. The lungs are appear grossly clear. A significant effusion is not seen. CONCLUSION: Stable chest x-ray with elevation of the left he midiaphragm. Festus Rosenberg MD on December 01, 2016 at 18:51 Board Certified Radiologist. This report was verified electronically.
[2016-12-01 19:04] VITALS: BP 132/63; PULSE 52; RESP 18; TEMP 98.1; O2SAT 98
[2016-12-01 19:05] LABS: ANION GAP 8 MEQ/L (5-15); BICARBONATE 31.1 MEQ/L (21.0-32.0); BLOOD UREA NITROGEN 17 MG/DL (7-18); CHLORIDE 102 MEQ/L (98-107); GLOMERULAR FILTRATION RATE 58 ML/MIN (>89); MAGNESIUM 2.5 MG/DL (1.5-2.5); POTASSIUM 4.6 MEQ/L (3.5-5.1); SODIUM (NA) 141 MEQ/L (136-145)
[2016-12-01 19:06] LABS: APTT (PATIENT) 24.7 SEC (24.3-30.1); INTERNATIONAL NORMALIZED RATIO 0.9 RATIO; PROTHROMBIN TIME - PATIENT 10.3 SEC (9.8-11.6)
[2016-12-01 19:11] LABS: CREATINE KINASE 33 U/L (26-192)
[2016-12-01 19:12] LABS: BLOOD, URINE NEG (NEG); GLUCOSE,URINE NEG (NEG); KETONE, URINE NEG (NEG); NITRITE,URINE NEG (NEG); PH, URINE 6.5 (5.0-8.5); URINE COLOR LIGHT-YELLOW (YELLW/STRAW)
[2016-12-01 19:21] LABS: COMMENT (UR) CULT NOT INDICATED; CULTURE IF INDICATED CULT NOT INDICATED
[2016-12-01] MEDS ORDERED: RANI150T PO (19:58)
[2016-12-01] MEDS ORDERED: OMEP40CA2 PO (19:58)
--- NOTE | 2016-12-02 08:48 | EKG ---
Date Performed: 12/01/2016 Time Performed: 17:56:49 PTAGE: 61 years EKG: SINUS BRADYCARDIA POSSIBLE RIGHT VENTRICULAR CONDUCTION DELAY NONSPECIFIC ST & T-WAVE ABNOR MALITY BORDERLINE ECG PREVIOUS TRACING : 10/07/2016 15.00 DOCTOR: Paulo Wallace Interpretating Date/Time 12/02/2016 08:48:36
[2016-12-14] MEDS ORDERED: CEPH-460 PO (11:52)
[2016-12-14] MEDS ORDERED: SYMB80AE INH (11:52)
[2016-12-14] MEDS ORDERED: FURO1TAB62 PO (11:52)
[2016-12-14] MEDS ORDERED: DOXY1LIQ3 PO (11:55)
[2016-12-23] MEDS ORDERED: PRED20 PO (15:03)
[2017-01-25] MEDS ORDERED: MELA1TAB18 PO (10:52)
[2017-01-25] MEDS ORDERED: NYST15T TOPICAL (11:02)
== END 2016-12-01 20:23 | disposition home or self-care (01) ==
LOC: NEPE 17:43
DX: R00.1 Bradycardia, unspecified (principal); I48.91 Unspecified atrial fibrillation; I50.9 Heart failure, unspecified; I10 Essential (primary) hypertension; M41.9 Scoliosis, unspecified; Z79.82 Long term (current) use of aspirin
CPT/HCPCS: 71010; 80048; 81001; 82550; 83735; 84484; 85025; 85610; 85730; 93005

== ENCOUNTER 2016-12-13 15:59 | Emergency (ER) | payer MEDICARE, OTHER ==
[~2016-12-13] VITALS: Ht 167.6 cm; Wt 122.5 kg
[~2016-12-13 15:59] MED LIST changes: -NEBULIZER1 MI1; -POTA-163 PO; +RANI150T PO
[2016-12-13 16:26] VITALS: BP 187/90; PULSE 63; RESP 22; O2SAT 91
[2016-12-13] MEDS ORDERED: SODIUM CHLORIDE 0.9% FLUSH 10 ML FLUSH IVF PRN (16:30)
--- NOTE | 2016-12-13 16:33 | PD ---
HPI Chief Complaint: Respiratory Symptoms Time Seen by Provider: 16:29 Travel History International Travel<30 days: No Contact w/Intl Traveler<30days: No Traveled to known affect area: No History of Present Illness HPI Patient comes in complaining of shortness of breath and choking sensation that began around 2:00 this morning. Patient states she feels as though stuff was running down her throat getting caught causing her to choke and become short of breath. Patient states she contacted her pharmacist to see what over-the- counter medication she could take with her other medications. Patient was advised to come to the emergency department as she could have fluid on her lungs. Patient denies any chest pain, fevers, nausea, vomiting, back pain, abdominal pain, headache, numbness or tingling anywhere. Patient states she is on Lasix for chronic edema in her lower extremities which she took with little improvement of her symptoms. Patient states started with a sore throat last night around 10 PM that she's been gargling for symptomatic relief and seems to be improving. Patient reports that she does take aspirin regularly and took it today. PFSH Past Medical History Hx Anticoagulant Therapy: Yes (ASA) Arthritis: Yes Atrial Fibrillation: Yes Anxiety: Yes Depression: No Cardiac Catheterization: No Cardiovascular Problems: Yes High Cholesterol: No Congestive Heart Failure: Yes COPD: Yes Diabetes: No Diminished Hearing: No Endocrine: No Gastrointestinal Disorders: Yes GERD: Yes Genitourinary: No Heparin Induced Thrombocytopen: No Hypertension: Yes Immune Disorder: No Implanted Vascular Access Dvce: No Musculoskeletal: Yes (SCOLIOSIS) Neurologic: No Reproductive: No Respiratory: Yes Immunizations Current: Yes Myocardial Infarction: No Sickle Cell Disease: No Sleep Apnea: No Thyroid Disease: No Ulcer: No Menopausal: Yes : 1 Para: 1 Miscarriage: 0 : 0 Past Surgical History Coronary Artery Bypass Graft: No Social History Alcohol Use: No Tobacco Use: No Substance Use: No Allergies-Medications (Allergen,Severity, Reaction): Coded Allergies: Darvocet-N 100 (Verified Allergy, Severe, Swelling, 12/01/16) Swelling, lips , throat Ibuprofen (Verified Allergy, Severe, Swelling, 12/01/16) Swelling lips, throat Morphine (Verified Allergy, Severe, Swelling, 12/01/16) Swelling lips , throat Vicodin (Verified Allergy, Severe, Tachycardia, swelling, 12/01/16) Swelling lips, throat Lortab (Verified Allergy, Intermediate, Chest Pain, 12/01/16) Ventolin (Verified Allergy, Intermediate, Tachycardia, 12/01/16) Amoxicillin (Verified Allergy, Unknown, Atrial Fibrillation, 12/01/16) Zoloft (Verified Allergy, Unknown, 12/01/16) Protonix (Verified Adverse Reaction, Unknown, Nausea/Vomiting, 12/01/16) Uncoded Allergies: INHALERS FOR COPD (ALL) (Allergy, Severe, PALPITATIONS/DIAPHORESIS, 11/16/13 ) VICOPROFEN (Allergy, Severe, Swelling, 11/16/13) "ANY PAIN PILLS" (Adverse Reaction, Severe, AFIB, 11/16/13) Reported Meds & Prescriptions Reported Meds & Active Scripts Active Lasix (Furosemide) 20 Mg Tab 20 Mg PO DAILY PRN Lorazepam 1 Mg Tab 1 Mg PO BID PRN Ipratropium Neb (Ipratropium [place]) 0.5 Mg/2.5 Ml Amp 0.5 Mg NEB Q6HR NEB PRN Reported Ranitidine (Ranitidine HCl) 150 Mg Tab 150 Mg PO BID Omeprazole 40 Mg Cap 40 Mg PO DAILY PRN Hydralazine (Hydralazine HCl) 10 Mg Tab 10 Mg PO QID Take with a meal Flonase Nasal [place] (Fluticasone Nasal [place]) 50 Mcg/Act [place] 1 [place] EACH NARE BID PRN Sotalol (Sotalol HCl) 120 Mg Tab 120 Mg PO BID Enalapril (Enalapril Maleate) 20 Mg Tab 20 Mg PO BID Aspirin 325 Mg Tab 325 Mg PO QID PRN Review of Systems Except as stated in HPI: all other systems reviewed are Neg Physical Exam Narrative GENERAL: Well-developed, overly nourished, in no acute distress, and non-ill appearing. SKIN: Focused skin assessment warm and dry. HEAD: Atraumatic. Normocephalic. EYES: Pupils equal and round. EOMI. No scleral icterus. No injection or drainage. ENT: No nasal bleeding or discharge. Mucous membranes pink and moist. NECK: Trachea midline. Supple. No nuclear rigidity. CARDIOVASCULAR: Regular rate and rhythm. No murmur appreciated. RESPIRATORY: No accessory muscle use. No respiratory distress. Clear to auscultation. Breath sounds equal bilaterally. Patient speaking in full sentences without difficulty. O2 sats noted to be 95% on room air. GASTROINTESTINAL: Abdomen soft, non-tender, nondistended. Hepatic and splenic margins not palpable. No pulsatile mass. MUSCULOSKELETAL: No obvious deformities. No clubbing. No cyanosis. 2+ nonpitting edema bilateral lower extremities. Full range of motion. NEUROLOGICAL: Awake and alert. No obvious cranial nerve deficits. Motor grossly within normal limits. Normal speech. PSYCHIATRIC: Appropriate mood and affect; insight and judgment normal. Data Data Last Documented VS Vital Signs Date Time Temp Pulse Resp B/P Pulse Ox O2 Delivery O2 Flow Rate FiO2 12/13/16 16:34 18 96 Room Air 12/13/16 16:29 2 12/13/16 16:26 63 187/90 Orders Complete Blood Count With Diff (12/13/16 16:22) Basic Metabolic Panel (Bmp) (12/13/16 16:22) B-Type Natriuretic Peptide (12/13/16 16:22) Act Partial Throm Time (Ptt) (12/13/16 16:22) Prothrombin Time / Inr (Pt) (12/13/16 16:22) Magnesium (Mg) (12/13/16 16:22) Ckmb (Isoenzyme) Profile (12/13/16 16:22) Troponin I (12/13/16 16:22) Iv Access Insert/Monitor (12/13/16 16:22) Electrocardiogram (12/13/16 16:22) Ecg Monitoring (12/13/16 16:22) Oximetry (12/13/16 16:22) Oxygen Administration (12/13/16 16:22) Chest, Single Ap (12/13/16 16:22) Sodium Chloride 0.9% Flush (Ns Flush) (12/13/16 16:30) Group A Rapid Strep Screen (12/13/16 16:28) Strep Culture (Group A) (12/13/16 16:35) Furosemide Inj (Lasix Inj) (12/13/16 17:45) Labs Laboratory Tests Test 12/13/16 16:30 White Blood Count 12.8 TH/MM3 Red Blood Count 4.91 MIL/MM3 Hemoglobin 12.9 GM/DL Hematocrit 40.8 % Mean Corpuscular Volume 83.2 FL Mean Corpuscular Hemoglobin 26.2 PG Mean Corpuscular Hemoglobin 31.5 % Concent Red Cell Distribution Width 15.0 % Platelet Count 251 TH/MM3 Mean Platelet Volume 8.1 FL Neutrophils (%) (Auto) 79.2 % Lymphocytes (%) (Auto) 11.2 % Monocytes (%) (Auto) 6.7 % Eosinophils (%) (Auto) 2.6 % Basophils (%) (Auto) 0.3 % Neutrophils # (Auto) 10.2 TH/MM3 Lymphocytes # (Auto) 1.4 TH/MM3 Monocytes # (Auto) 0.9 TH/MM3 Eosinophils # (Auto) 0.3 TH/MM3 Basophils # (Auto) 0.0 TH/MM3 CBC Comment DIFF FINAL Differential Comment Prothrombin Time 10.0 SEC Prothromb Time International 0.9 RATIO Ratio Activated Partial 24.0 SEC Thromboplast Time Sodium Level 141 MEQ/L Potassium Level 4.1 MEQ/L Chloride Level 102 MEQ/L Carbon Dioxide Level 30.5 MEQ/L Anion Gap 9 MEQ/L Blood Urea Nitrogen 22 MG/DL Creatinine 0.92 MG/DL Estimat Glomerular Filtration 62 ML/MIN Rate Random Glucose 98 MG/DL Calcium Level 8.6 MG/DL Magnesium Level 2.3 MG/DL Total Creatine Kinase 48 U/L Troponin I LESS THAN 0.02 NG/ML B-Type Natriuretic Peptide 148 PG/ML MDM Medical Decision Making Medical Screen Exam Complete: Yes Emergency Medical Condition: Yes Interpretation(s) EKG reviewed by Dr. Alcaraz shows sinus rhythm with ventricular rate of 62. No STEMI. Chest x-ray read by the radiologist shows: 1. Mild and interstitial edema. 2. Marked elevation left diaphragm stable Differential Diagnosis CHF exacerbation, COPD exacerbation, pneumonia, postnasal drip, acute coronary syndrome, other Narrative Course Patient in no obvious distress upon re-evaluation. All pertinent laboratory/ Radiology result(s) discussed with patient. I discussed patient with Dr. Aclaraz prior to discharge, who recommends giving one dose if IV Lasix 40 mg and out patient follow up. Any questions/concerns in reference to patient diagnosis/condition discussed and clarified prior to patient's discharge. Reinforced sheer importance of close follow up with patient's primary physician or primary care clinic. Instructed patient to return to ED immediately, if symptoms return/worsen. Pt showed understanding of above instructions. Further instructions and recommendations were detailed in discharge paperwork. Pt ambulated without difficulty out of ED at discharge. Diagnosis Primary Impression: Dyspnea Qualified Code: R06.00 - Dyspnea, unspecified type Additional Impression: Cough Patient Instructions: Acute Cough (ED), Dyspnea (ED), General Instructions Additional Instructions: Follow-up with your primary care physician and/or commercial real estate underwriter one to 2 days for reevaluation. Return to the emergency department if symptoms get worse. Disposition: 01 DISCHARGE HOME Condition: Stable Ozzie Van December 13, 2016 16:33
[2016-12-13 16:34] VITALS: RESP 18; O2SAT 96
[2016-12-13 16:46] LABS: AUTOMATED NEUTROPHIL # 10.2 TH/MM3 (1.8-7.7); BASOPHIL % 0.3 % (0.0-2.0); EOSINOPHIL # 0.3 TH/MM3 (0-0.4); EOSINOPHIL % 2.6 % (0.0-4.0); HEMATOCRIT 40.8 % (35.0-46.0); HEMO FLAGS DIFF FINAL; LYMPH % 11.2 % (9.0-44.0); LYMPHOCYTE # 1.4 TH/MM3 (1.0-4.8); MEAN CELL VOLUME 83.2 FL (80.0-100.0); MEAN CORPUSCULAR HEMOGLOBIN 26.2 PG (27.0-34.0); MEAN CORPUSCULAR HGB CONC 31.5 % (32.0-36.0); MONO % 6.7 % (0.0-8.0); NEUT % 79.2 % (16.0-70.0); PLATELET COUNT 251 TH/MM3 (150-450); RED BLOOD COUNT 4.91 MIL/MM3 (4.00-5.30); WHITE BLOOD COUNT 12.8 TH/MM3 (4.0-11.0)
--- NOTE | 2016-12-13 16:50 | RADRPT ---
EXAM DATE/TIME: 12/13/2016 16:32 [facility] COMPARISON: CHEST SINGLE AP, December 01, 2016, 18:30. INDICATIONS : Shortness of breath. MEDICAL HISTORY : Congestive heart failure. Chronic obstructive pulmonary disease. Atrial fibrillation. SURGICAL HISTORY : None. ENCOUNTER: Initial ACUITY: 1 day PAIN SCORE: 0/10 LOCATION: Bilateral chest FINDINGS: There is marked elevation of the left hemidiaphragm. The heart is minimally enlarged. Mild intersti tial edema is evident. The portion of the bony skeleton visualized is unremarkable. CONCLUSION: 1. Mild and interstitial edema. 2. Marked elevation left diaphragm stable Arie Graham MD FACR on December 13, 2016 at 16:46 Board Certified Radiologist. This report was verified electronically.
[2016-12-13 16:58] LABS: INTERNATIONAL NORMALIZED RATIO 0.9 RATIO
[2016-12-13 17:09] LABS: ANION GAP 9 MEQ/L (5-15); BICARBONATE 30.5 MEQ/L (21.0-32.0); BLOOD UREA NITROGEN 22 MG/DL (7-18); CHLORIDE 102 MEQ/L (98-107); GLOMERULAR FILTRATION RATE 62 ML/MIN (>89); MAGNESIUM 2.3 MG/DL (1.5-2.5); POTASSIUM 4.1 MEQ/L (3.5-5.1); SODIUM (NA) 141 MEQ/L (136-145)
[2016-12-13 17:17] LABS: CREATINE KINASE 48 U/L (26-192)
[2016-12-13] MEDS ORDERED: FUROSEMIDE 40 MG/4 ML VIAL IV PUSH ONE (17:45)
[2016-12-14] MEDS ORDERED: FURO1TAB62 PO (11:52)
[2016-12-14] MEDS ORDERED: SYMB80AE INH (11:52)
[2016-12-14] MEDS ORDERED: CEPH-460 PO (11:52)
[2016-12-14] MEDS ORDERED: DOXY1LIQ3 PO (11:55)
--- NOTE | 2016-12-14 16:03 | EKG ---
Date Performed: 12/13/2016 Time Performed: 16:33:02 PTAGE: 61 years EKG: Sinus rhythm WITH SHORT AL INTERVAL NONSPECIFIC T-WAVE ABNORMALITY BORDERLINE ECG PREVIOUS TRACING : 12/01/2016 17.56 Compared to previous tracing, sinus rate has increased. DOCTOR: Anuel Elizabeth Interpretating Date/Time 12/14/2016 16:02:39
[2016-12-23] MEDS ORDERED: PRED20 PO (15:03)
[2017-01-25] MEDS ORDERED: MELA1TAB18 PO (10:52)
[2017-01-25] MEDS ORDERED: NYST15T TOPICAL (11:02)
== END 2016-12-13 18:12 | disposition home or self-care (01) ==
LOC: NEPE 15:59
DX: R06.00 Dyspnea, unspecified (principal); R05 Cough; M41.9 Scoliosis, unspecified; I50.9 Heart failure, unspecified; Z79.82 Long term (current) use of aspirin; J44.9 Chronic obstructive pulmonary disease, unspecified
CPT/HCPCS: 71010; 80048; 82550; 83735; 83880; 84484; 85025; 85610; 85730; 87081; 87880; 93005; 96374; 99285; J1940

== ENCOUNTER 2017-07-19 06:44 | Emergency (ER) | payer MEDICARE, OTHER ==
[~2017-07-19] VITALS: Ht 170.2 cm; Wt 140.0 kg
[~2017-07-19 06:44] MED LIST changes: +ASPI-183 PO; -ASPI325T PO; +HYDR-3798 PO; -HYDR10TA23 PO; +MELA1TAB18 PO; +NYST1000 SWISH-SWAL; +NYST15T TOPICAL; +PATA0.2S EACH EYE; +SYMB80AE INH
[2017-07-19 06:46] VITALS: BP 169/89; PULSE 114; RESP 20; TEMP 99.2; O2SAT 93
[2017-07-19] MEDS ORDERED: SODIUM CHLORIDE 0.9% FLUSH 10 ML FLUSH IVF PRN (07:30)
[2017-07-19] MEDS ORDERED: methylPREDNISolone SOD SUCC 125 MG/2 ML VIAL IV PUSH ONE (07:30)
[2017-07-19] MEDS ORDERED: guaiFENesin E.R. 600 MG TAB PO ONE (07:30)
[2017-07-19 07:53] LABS: AUTOMATED NEUTROPHIL # 7.9 TH/MM3 (1.8-7.7); BASOPHIL # 0.1 TH/MM3 (0-0.2); BASOPHIL % 0.6 % (0.0-2.0); EOSINOPHIL # 0.5 TH/MM3 (0-0.4); EOSINOPHIL % 4.6 % (0.0-4.0); HEMOGLOBIN 12.7 GM/DL (11.6-15.3); LYMPH % 11.2 % (9.0-44.0); LYMPHOCYTE # 1.2 TH/MM3 (1.0-4.8); MEAN CELL VOLUME 83.6 FL (80.0-100.0); MEAN CORPUSCULAR HEMOGLOBIN 27.2 PG (27.0-34.0); MEAN CORPUSCULAR HGB CONC 32.5 % (32.0-36.0); MEAN PLATELET VOLUME 7.9 FL (7.0-11.0); MONO % 8.5 % (0.0-8.0); MONOCYTE # 0.9 TH/MM3 (0-0.9); NEUT % 75.1 % (16.0-70.0); PLATELET COUNT 250 TH/MM3 (150-450); RED BLOOD COUNT 4.66 MIL/MM3 (4.00-5.30); RED CELL DISTRIBUTION WIDTH 15.2 % (11.6-17.2); WHITE BLOOD COUNT 10.6 TH/MM3 (4.0-11.0)
--- NOTE | 2017-07-19 08:00 | RADRPT ---
EXAM DATE/TIME: 07/19/2017 07:29 [facility] COMPARISON: CHEST PA & LAT, June 30, 2016, 22:08. CHEST SINGLE AP, October 11, 2014, 2:26. CHEST SINGLE AP, M ay 2016, 16:32. INDICATIONS : Shortness of breath. MEDICAL HISTORY : Hypertension. Congestive heart failure. Chronic obstructive pulmonary disease. Asthma SURGICAL HISTORY : None. ENCOUNTER: Initial ACUITY: 1 day PAIN SCORE: 0/10 LOCATION: Bilateral chest FINDINGS: A single portable frontal view of the chest shows chronic elevation of the left hemidiaphragm. Left b asilar atelectasis. Remaining lungs are clear. Heart is normal in size. Nodular component to the righ t hilum is long-term stable and felt to relate to the patient's vasculature. CONCLUSION: No acute cardiopulmonary disease. Matty Calderón Jr., MD on July 19, 2017 at 7:56 Board Certified Radiologist. This report was verified electronically.
[2017-07-19] MEDS: MAGNESIUM SULFATE 1 GM PREMIX 100 ML IV SCH ×2 (08:01→09:03)
--- NOTE | 2017-07-19 08:01 | PD ---
HPI . Cough Chief Complaint: Respiratory Distress Time Seen by Provider: 07:23 Travel History International Travel<30 days: No Contact w/Intl Traveler<30days: No Traveled to known affect area: No History of Present Illness HPI Patient presents with chief complaint of cough. She reports a dry cough for the last 3-4 days. It became productive last night. It is associated with a subjective fever. Symptoms are mild. This patient reports a history of COPD, CHF, intermittent atrial fibrillation which prevents her from being able to use a beta agonist. She is on home oxygen at 2 L. PFSH Past Medical History Hx Anticoagulant Therapy: Yes (ASA) Arthritis: Yes Atrial Fibrillation: Yes Anxiety: Yes Depression: No Heart Rhythm Problems: Yes Cardiac Catheterization: No Cardiovascular Problems: Yes High Cholesterol: No Congestive Heart Failure: Yes COPD: Yes Diabetes: No Diminished Hearing: No Endocrine: No Gastrointestinal Disorders: Yes GERD: Yes Genitourinary: No Heparin Induced Thrombocytopen: No Hypertension: Yes Immune Disorder: No Implanted Vascular Access Dvce: No Musculoskeletal: Yes (SCOLIOSIS) Neurologic: No Psychiatric: Yes Reproductive: No Respiratory: Yes Immunizations Current: Yes Myocardial Infarction: No Sickle Cell Disease: No Sleep Apnea: No Thyroid Disease: No Ulcer: No ?: Not Menopausal: Yes : 1 Para: 1 Miscarriage: 0 : 0 Past Surgical History Coronary Artery Bypass Graft: No Family History Family Myocardial Infarction: No Social History Alcohol Use: No Tobacco Use: No Substance Use: No Allergies-Medications (Allergen,Severity, Reaction): Coded Allergies: acetaminophen (Verified Allergy, Severe, Tachycardia, swelling, 07/05/17) Swelling lips, throat hydrocodone (Verified Allergy, Severe, Tachycardia, swelling, 07/05/17) Swelling lips, throat ibuprofen (Verified Allergy, Severe, Swelling, 07/05/17) Swelling lips, throat morphine (Verified Allergy, Severe, Swelling, 07/05/17) Swelling lips , throat propoxyphene (Verified Allergy, Severe, Swelling, 07/05/17) Swelling, lips , throat albuterol (Verified Allergy, Intermediate, Tachycardia, 07/05/17) amoxicillin (Verified Allergy, Unknown, Atrial Fibrillation, 07/05/17) sertraline (Verified Allergy, Unknown, 07/05/17) pantoprazole (Verified Adverse Reaction, Unknown, Nausea/Vomiting, 07/05/17 ) Uncoded Allergies: INHALERS FOR COPD (ALL) (Allergy, Severe, PALPITATIONS/DIAPHORESIS, 11/16/13 ) VICOPROFEN (Allergy, Severe, Swelling, 11/16/13) "ANY PAIN PILLS" (Adverse Reaction, Severe, AFIB, 11/16/13) Reported Meds & Prescriptions Reported Meds & Active Scripts Active Symbicort Inh (Budesonide/Formoterol Fumarate) 80-4.5 Mcg/Act Aero 1 Puff INH Q12HR Hydralazine HCl 10 Mg Tablet 1 Tab PO QID Lasix (Furosemide) 20 Mg Tab 20 Mg PO DAILY PRN Lorazepam 1 Mg Tab 1 Mg PO BID PRN Enalapril (Enalapril Maleate) 20 Mg Tab 20 Mg PO BID Reported Ranitidine (Ranitidine HCl) 150 Mg Tab 150 Mg PO BID Flonase Nasal [place] (Fluticasone Nasal [place]) 50 Mcg/Act [place] 1 [place] EACH NARE BID PRN Sotalol (Sotalol HCl) 120 Mg Tab 120 Mg PO BID Aspirin 325 Mg Tab 325 Mg PO QID PRN Review of Systems Except as stated in HPI: all other systems reviewed are Neg General / Constitutional: Positive: Fever, Chills Respiratory: Positive: Cough, Shortness of Breath, Wheezing Physical Exam Narrative GENERAL: Awake and alert and in no acute distress. SKIN: warm/dry. HEAD: Normocephalic. EYES: Pupils equal and round. No scleral icterus. No injection or drainage. ENT: No nasal bleeding or discharge. Mucous membranes pink and moist. NECK: Trachea midline. Full range of motion without pain.. CARDIOVASCULAR: Regular rate and rhythm. Heart sounds are normal. RESPIRATORY: Speaking in complete sentences off of oxygen. No accessory muscle use. Coarse end-expiratory wheezing. Breath sounds equal bilaterally. GASTROINTESTINAL: Abdomen soft. Nontender. Bowel sounds present. Nondistended. MUSCULOSKELETAL: No obvious deformities. NEUROLOGICAL: Awake and alert. No obvious cranial nerve deficits. Motor grossly within normal limits. Normal speech. PSYCHIATRIC: Appropriate mood and affect; insight and judgment normal. Data Data Last Documented VS Vital Signs Date Time Temp Pulse Resp B/P (MAP) Pulse Ox O2 Delivery O2 Flow Rate FiO2 07/19/17 08:08 97 Nasal Cannula 2.00 07/19/17 08:08 18 07/19/17 07:20 74 07/19/17 06:46 99.2 Orders Orders Complete Blood Count With Diff (07/19/17 07:23) Comprehensive Metabolic Panel (07/19/17 07:23) B-Type Natriuretic Peptide (07/19/17 07:23) Magnesium (Mg) (07/19/17 07:23) Troponin I (07/19/17 07:23) Influenzae A/B Antigen (07/19/17 07:23) Blood Culture (07/19/17 07:23) Iv Access Insert/Monitor (07/19/17 07:23) Electrocardiogram (07/19/17 07:23) Ecg Monitoring (07/19/17 07:23) Oximetry (07/19/17 07:23) Oxygen Administration (07/19/17 07:23) Chest, Single Ap (07/19/17 07:23) Sodium Chloride 0.9% Flush (Ns Flush) (07/19/17 07:30) Methylprednisolone So Succ Inj (Solumedr (07/19/17 07:30) Magnesium Sulfate 1 Gm Premix (Magnesium (07/19/17 07:30) Guaifenesin Er (Mucinex Er) (07/19/17 07:30) Labs Laboratory Tests Test 07/19/17 07:35 White Blood Count 10.6 TH/MM3 Red Blood Count 4.66 MIL/MM3 Hemoglobin 12.7 GM/DL Hematocrit 39.0 % Mean Corpuscular Volume 83.6 FL Mean Corpuscular Hemoglobin 27.2 PG Mean Corpuscular Hemoglobin Concent 32.5 % Red Cell Distribution Width 15.2 % Platelet Count 250 TH/MM3 Mean Platelet Volume 7.9 FL Neutrophils (%) (Auto) 75.1 % Lymphocytes (%) (Auto) 11.2 % Monocytes (%) (Auto) 8.5 % Eosinophils (%) (Auto) 4.6 % Basophils (%) (Auto) 0.6 % Neutrophils # (Auto) 7.9 TH/MM3 Lymphocytes # (Auto) 1.2 TH/MM3 Monocytes # (Auto) 0.9 TH/MM3 Eosinophils # (Auto) 0.5 TH/MM3 Basophils # (Auto) 0.1 TH/MM3 CBC Comment DIFF FINAL Differential Comment Blood Urea Nitrogen 22 MG/DL Creatinine 0.88 MG/DL Random Glucose 113 MG/DL Total Protein 7.4 GM/DL Albumin 3.5 GM/DL Calcium Level 9.2 MG/DL Magnesium Level 2.1 MG/DL Alkaline Phosphatase 92 U/L Aspartate Amino Transf (AST/SGOT) 9 U/L Alanine Aminotransferase (ALT/SGPT) 12 U/L Total Bilirubin 0.4 MG/DL Sodium Level 140 MEQ/L Potassium Level 3.9 MEQ/L Chloride Level 104 MEQ/L Carbon Dioxide Level 30.7 MEQ/L Anion Gap 5 MEQ/L Estimat Glomerular Filtration Rate 65 ML/MIN Troponin I LESS THAN 0.02 NG/ML B-Type Natriuretic Peptide 31 PG/ML MDM Medical Decision Making Medical Screen Exam Complete: Yes Emergency Medical Condition: Yes Interpretation(s) EKG shows a normal sinus rhythm with no acute ischemic changes. Differential Diagnosis Differential diagnosis includes but is not limited to viral respiratory illness , bronchitis, pneumonia, allergies, CHF, asthma/COPD. Narrative Course This patient presents with the chief complaint of a productive cough. She is wheezing but states that she cannot take beta agonist secondary to intermittent atrial fibrillation. I have ordered IV Solu-Medrol, IV magnesium and oral guaifenesin. Workup to rule out pneumonia or CHF is pending. Last Impressions Chest X-Ray 07/19/17722 Signed Impressions: Service Date/Time: Wednesday, July 19, 2017 07:29 - CONCLUSION: No acute cardiopulmonary disease. Matty Calderón Jr., MD The chest x-ray was independently viewed by me. She has an elevated left hemidiaphragm. CBC Diagram 07/19/17 07:35 She does not meet SIRS criteria. Flu screen neg. BMP Diagram 07/19/17 07:35 Total Protein 7.4, Albumin 3.5, Calcium Level 9.2, Magnesium Level 2.1, Alkaline Phosphatase 92, Aspartate Amino Transf (AST/SGOT) 9 L, Alanine Aminotransferase (ALT/SGPT) 12, Total Bilirubin 0.4 trop < 0.02 BNP 31 This patient has no objective concerning respiratory issues. Her chest x-ray and labs are acceptable. She is able to speak to me in complete sentences off of oxygen even though she uses oxygen at home continuously. She is stable for discharge to home. Sepsis Criteria SIRS Criteria (2 or more): Heart rate over 90 Diagnosis Primary Impression: Dyspnea Qualified Codes: R06.00 - Dyspnea, unspecified Additional Impression: COPD (chronic obstructive pulmonary disease) Qualified Codes: J44.1 - Chronic obstructive pulmonary disease with (acute) exacerbation Patient Instructions: COPD (Chronic Obstructive Pulmonary Disease) (DC), General Instructions Med/Other Pt SpecificInfo: Prescription(s) given Scripts Guaifenesin ER 12 HR (Guaifenesin ER 12 HR) 1,200 Mg [place] 1200 MG PO BID for Chest Congestion/Cough, #60 TAB 0 Refills Prov: Riri Tang MD 07/19/17 Prednisone (48) 10 mg tab Dose Pack (Prednisone (48) 10 mg tab Dose Pack) 10 Mg Dspk 10 MG PO DIRECTED for Inflammation, #1 DSPK 0 Refills Prov: Riri Tang MD 07/19/17 Budesonide-Formoterol Inh (Symbicort Inh) 80-4.5 Mcg/Act Aero 1 PUFF INH Q12HR for Asthma Management, #1 INHALER 1 Refill Prov: Riri Tang MD 07/19/17 Disposition: 01 DISCHARGE HOME Condition: Stable Riri Tang MD Jul 19, 2017 08:01
[2017-07-19 08:08] VITALS: RESP 18; O2SAT 98
[2017-07-19 08:17] LABS: ALBUMIN 3.5 GM/DL (3.4-5.0); ALT (GPT) 12 U/L (10-53); AST (GOT) 9 U/L (15-37); BICARBONATE 30.7 MEQ/L (21.0-32.0); BLOOD UREA NITROGEN 22 MG/DL (7-18); CALCIUM 9.2 MG/DL (8.5-10.1); CHLORIDE 104 MEQ/L (98-107); CREATININE 0.88 MG/DL (0.50-1.00); GLOMERULAR FILTRATION RATE 65 ML/MIN (>89); GLUCOSE,RANDOM 113 MG/DL (74-106); MAGNESIUM 2.1 MG/DL (1.5-2.5); SODIUM (NA) 140 MEQ/L (136-145)
[2017-07-19 08:20] LABS: ALKALINE PHOSPHATASE 92 U/L (45-117); TOTAL BILIRUBIN ADULT 0.4 MG/DL (0.2-1.0); TOTAL PROTEIN 7.4 GM/DL (6.4-8.2); TROPONIN I LESS THAN 0.02 NG/ML (0.02-0.05)
[2017-07-19] MEDS ORDERED: GUAI10TA PO (08:33)
[2017-07-19] MEDS ORDERED: SYMB80AE INH (08:33)
[2017-07-19] MEDS ORDERED: PRED10PA2 PO (08:33)
[2017-07-19] MEDS ORDERED: CODE5LIQ PO (11:56)
[2017-07-19] MEDS ORDERED: HOSP BED1 (11:57)
--- NOTE | 2017-07-19 17:02 | EKG ---
Date Performed: 07/19/2017 Time Performed: 07:57:17 PTAGE: 61 years EKG: Sinus rhythm WITH SHORT DE INTERVAL POSSIBLE RIGHT VENTRICULAR CONDUCTION DELAY NONSPECIFIC ST & T-WAVE ABNORMALI TY Since previous tracing, no significant change noted ABNORMAL ECG PREVIOUS TRACING : 12/13/2016 16.33 DOCTOR: Bhaskar Shaver Interpretating Date/Time 07/19/2017 17:02:15
[2017-07-28] MEDS ORDERED: [UNRECOGNIZED DRUG - CODE] PO (09:56)
[2017-08-04] MEDS ORDERED: LEVA500T33 PO (10:14)
== END 2017-07-19 10:45 | disposition home or self-care (01) ==
LOC: NEPE 06:44
DX: J44.1 Chronic obstructive pulmonary disease with (acute) exacerbation (principal); I11.0 Hypertensive heart disease with heart failure; I50.9 Heart failure, unspecified; I48.91 Unspecified atrial fibrillation; K21.9 Gastro-esophageal reflux disease without esophagitis; Z79.899 Other long term (current) drug therapy; Z99.81 Dependence on supplemental oxygen
CPT/HCPCS: 71010; 80053; 83735; 83880; 84484; 85025; 87040; 87804; 93005; 96365; 96375; 99285; J2930; J3475

== ENCOUNTER 2017-07-22 14:58 | Emergency (ER) | payer MEDICARE, OTHER ==
[~2017-07-22] VITALS: Ht 170.2 cm; Wt 135.0 kg
[~2017-07-22 14:58] MED LIST changes: +CODE5LIQ PO; +GUAI10TA PO; +HOSP BED1; -IPRA0.02 NEB; -MELA1TAB18 PO; -NYST1000 SWISH-SWAL; -NYST15T TOPICAL; -OMEP40CA2 PO; -PATA0.2S EACH EYE; +PRED10PA2 PO
[2017-07-22 15:02] VITALS: BP 126/73; PULSE 67; RESP 24; TEMP 98.5; O2SAT 92
[2017-07-22] MEDS: RESP: ALBUTEROL 2.5 MG/IPRATROPIUM 0.5 MG NEB (SCH) INH ×2 (15:45→15:59)
[2017-07-22] MEDS ORDERED: methylPREDNISolone SOD SUCC 125 MG/2 ML VIAL IV PUSH ONE (15:45)
--- NOTE | 2017-07-22 15:48 | PD ---
HPI Chief Complaint: Respiratory Symptoms Time Seen by Provider: 15:23 Travel History International Travel<30 days: No Contact w/Intl Traveler<30days: No Traveled to known affect area: No History of Present Illness HPI 61-year-old female presents the emergency department with worsening shortness of breath, productive cough, and purulent sputum. Patient has history of COPD, followed by Dr. Monson. Patient was here on 19 July, diagnosed at that time a COPD exacerbation. Patient was placed on Symbicort and prednisone Dosepak which she states is not improving her symptoms currently. She is chronically O2 dependent. Patient states he has a nebulizer but has not been using it at home. Patient has had some nausea, but no significant vomiting or abdominal pain. Patient has history of CHF but denies significant chest pain except from cough. Patient feels that she is congested as well in the head and sinuses. She denies sore throat however. Patient has had chills but denies specific fever. Patient has multiple allergies please see list. PFSH Past Medical History Hx Anticoagulant Therapy: Yes (ASA) Arthritis: Yes Atrial Fibrillation: Yes Anxiety: Yes Depression: No Heart Rhythm Problems: Yes Cardiac Catheterization: No Cardiovascular Problems: Yes High Cholesterol: No Congestive Heart Failure: Yes COPD: Yes Diabetes: No Diminished Hearing: No Endocrine: No Gastrointestinal Disorders: Yes GERD: Yes Genitourinary: No Heparin Induced Thrombocytopen: No Hypertension: Yes Immune Disorder: No Implanted Vascular Access Dvce: No Musculoskeletal: Yes (SCOLIOSIS) Neurologic: No Psychiatric: Yes Reproductive: No Respiratory: Yes Immunizations Current: Yes Myocardial Infarction: No Sickle Cell Disease: No Sleep Apnea: Yes Thyroid Disease: No Ulcer: No Menopausal: Yes : 1 Para: 1 Miscarriage: 0 : 0 Past Surgical History Coronary Artery Bypass Graft: No Social History Alcohol Use: No Tobacco Use: No Substance Use: No Allergies-Medications (Allergen,Severity, Reaction): Coded Allergies: acetaminophen (Verified Allergy, Severe, Tachycardia, swelling, 07/22/17) Swelling lips, throat hydrocodone (Verified Allergy, Severe, Tachycardia, swelling, 07/22/17) Swelling lips, throat ibuprofen (Verified Allergy, Severe, Swelling, 07/22/17) Swelling lips, throat morphine (Verified Allergy, Severe, Swelling, 07/22/17) Swelling lips , throat propoxyphene (Verified Allergy, Severe, Swelling, 07/22/17) Swelling, lips , throat albuterol (Verified Allergy, Intermediate, Tachycardia, 07/22/17) amoxicillin (Verified Allergy, Unknown, Atrial Fibrillation, 07/22/17) sertraline (Verified Allergy, Unknown, 07/22/17) pantoprazole (Verified Adverse Reaction, Unknown, Nausea/Vomiting, ) Uncoded Allergies: INHALERS FOR COPD (ALL) (Allergy, Severe, PALPITATIONS/DIAPHORESIS, 11/16/13 ) VICOPROFEN (Allergy, Severe, Swelling, 11/16/13) "ANY PAIN PILLS" (Adverse Reaction, Severe, AFIB, 11/16/13) Reported Meds & Prescriptions Reported Meds & Active Scripts Active Azithromycin 500 Mg Tab 500 Mg PO DAILY Xopenex Neb (Levalbuterol HCl) 1.25 Mg/3 Ml Neb 1.25 Mg NEB QID Ipratropium Neb (Ipratropium [place]) 0.5 Mg/2.5 Ml Amp 0.5 Mg NEB Q6HR NEB PRN Hospital Bed - Electric 1 Ea Ea Ea .ROUTE DIRECTED Guaiatussin AC Liquid (Codeine Phosphate/Guaifenesin) 10 Mg-100 Mg/5 Ml (5 Ml) Liquid 5 Ml PO Q6HR PRN Guaifenesin ER 12 HR (Guaifenesin) 1,200 Mg [place] 1,200 Mg PO BID Prednisone (48) 10 mg tab Dose Pack (Prednisone) 10 Mg Dspk 10 Mg PO DIRECTED Symbicort Inh (Budesonide/Formoterol Fumarate) 80-4.5 Mcg/Act Aero 1 Puff INH Q12HR Hydralazine HCl 10 Mg Tablet 1 Tab PO QID Lasix (Furosemide) 20 Mg Tab 20 Mg PO DAILY PRN Lorazepam 1 Mg Tab 1 Mg PO BID PRN Enalapril (Enalapril Maleate) 20 Mg Tab 20 Mg PO BID Reported Ranitidine (Ranitidine HCl) 150 Mg Tab 150 Mg PO BID Flonase Nasal [place] (Fluticasone Nasal [place]) 50 Mcg/Act [place] 1 [place] EACH NARE BID PRN Sotalol (Sotalol HCl) 120 Mg Tab 120 Mg PO BID Aspirin 325 Mg Tab 325 Mg PO QID PRN Review of Systems Except as stated in HPI: all other systems reviewed are Neg General / Constitutional: Positive: Chills, No: Fever Eyes: No: Visual changes HENT: Positive: Headaches, Rhinitis, Rhinorrhea, Congestion, No: Vertigo, Lightheadedness, Sore Throat, Nosebleed, Neck Stiffness, Neck Pain, Dental Difficulties, Earache Cardiovascular: No: Chest Pain or Discomfort Respiratory: Positive: Cough, Shortness of Breath, Wheezing, Orthopnea, No: Sneezing, Hemoptysis, Stridor, Night Sweats, Pleuritic Pain Gastrointestinal: Positive: Nausea, Loss of Appetite, No: Vomiting, Diarrhea, Abdominal Pain Genitourinary: No: Dysuria Musculoskeletal: No: Pain Skin: No Rash Neurologic: No: Weakness Psychiatric: No: Depression Endocrine: No: Polydipsia Hematologic/Lymphatic: No: Easy Bruising Physical Exam Narrative GENERAL: Patient appears in mild distress. She is satting at 94% on 2 L via nasal cannula. Patient is able to speak in full sentences. SKIN: Warm and dry. Normal color. Normal turgor. HEAD: Atraumatic. Normocephalic. EYES: Pupils equal and round. No scleral icterus. No injection or drainage. ENT: No nasal bleeding or discharge. Mucous membranes pink and moist. TMs are clear bilaterally. Pharynx is unremarkable without significant erythema or swelling. Patient complains of sinus tenderness with palpation and percussion. NECK: Trachea midline. Supple and nontender. CARDIOVASCULAR: Regular rate and rhythm. RESPIRATORY: No accessory muscle use. Diffuse wheezes to auscultation. Breath sounds equal bilaterally. GASTROINTESTINAL: Abdomen soft, non-tender, nondistended. Hepatic and splenic margins not palpable. MUSCULOSKELETAL: Extremities without clubbing, cyanosis, or edema. No obvious deformities. NEUROLOGICAL: Awake and alert. No obvious cranial nerve deficits. Motor grossly within normal limits. Five out of 5 muscle strength in the arms and legs. Normal speech. PSYCHIATRIC: Appropriate mood and affect; insight and judgment normal. Data Data Last Documented VS Vital Signs Date Time Temp Pulse Resp B/P (MAP) Pulse Ox O2 Delivery O2 Flow Rate FiO2 07/22/17 15:31 65 28 95 Nasal Cannula 2.00 07/22/17 15:02 98.5 126/73 (90) Orders Orders Complete Blood Count With Diff (07/22/17 15:42) Comprehensive Metabolic Panel (07/22/17 15:42) B-Type Natriuretic Peptide (07/22/17 15:42) Magnesium (Mg) (07/22/17 15:42) Ckmb (Isoenzyme) Profile (07/22/17 15:42) Troponin I (07/22/17 15:42) Iv Access Insert/Monitor (07/22/17 15:42) Electrocardiogram (07/22/17 15:42) Ecg Monitoring (07/22/17 15:42) Oximetry (07/22/17 15:42) Oxygen Administration (07/22/17 15:42) Chest, Pa & Lat (07/22/17 15:42) Sodium Chloride 0.9% Flush (Ns Flush) (07/22/17 15:45) Methylprednisolone So Succ Inj (Solumedr (07/22/17 15:45) Albuterol-Ipratropium Neb (Duoneb Neb) (07/22/17 15:45) Azithromycin (Zithromax) (07/22/17 16:30) Ceftriaxone Inj (Rocephin Inj) (07/22/17 16:30) Famotidine Inj (Pepcid Inj) (07/22/17 18:00) Al-Mag Hy-Si 40-40-4 Mg/Ml Liq (Mag-Al P (07/22/17 18:00) Lidocaine 2% Viscous (Xylocaine 2% Visco (07/22/17 18:00) Labs Laboratory Tests Test 07/22/17 16:40 White Blood Count 11.7 TH/MM3 Red Blood Count 4.77 MIL/MM3 Hemoglobin 12.8 GM/DL Hematocrit 39.7 % Mean Corpuscular Volume 83.2 FL Mean Corpuscular Hemoglobin 26.8 PG Mean Corpuscular Hemoglobin Concent 32.2 % Red Cell Distribution Width 15.2 % Platelet Count 275 TH/MM3 Mean Platelet Volume 7.9 FL Neutrophils (%) (Auto) 79.5 % Lymphocytes (%) (Auto) 10.1 % Monocytes (%) (Auto) 10.3 % Eosinophils (%) (Auto) 0.0 % Basophils (%) (Auto) 0.1 % Neutrophils # (Auto) 9.3 TH/MM3 Lymphocytes # (Auto) 1.2 TH/MM3 Monocytes # (Auto) 1.2 TH/MM3 Eosinophils # (Auto) 0.0 TH/MM3 Basophils # (Auto) 0.0 TH/MM3 CBC Comment DIFF FINAL Differential Comment Blood Urea Nitrogen 25 MG/DL Creatinine 0.93 MG/DL Random Glucose 92 MG/DL Total Protein 7.6 GM/DL Albumin 3.3 GM/DL Calcium Level 8.8 MG/DL Magnesium Level 2.5 MG/DL Alkaline Phosphatase 92 U/L Aspartate Amino Transf (AST/SGOT) 10 U/L Alanine Aminotransferase (ALT/SGPT) 15 U/L Total Bilirubin 0.3 MG/DL Sodium Level 142 MEQ/L Potassium Level 4.4 MEQ/L Chloride Level 103 MEQ/L Carbon Dioxide Level 34.1 MEQ/L Anion Gap 5 MEQ/L Estimat Glomerular Filtration Rate 61 ML/MIN Total Creatine Kinase 37 U/L Troponin I LESS THAN 0.02 NG/ML B-Type Natriuretic Peptide 167 PG/ML [facility] Medical Decision Making Medical Screen Exam Complete: Yes Emergency Medical Condition: Yes Medical Record Reviewed: Yes Differential Diagnosis Wheezy bronchitis. COPD with exacerbation. Pneumonia. CHF. Narrative Course Patient is medically stable at time of exam. Labs ordered including CBC, CMP, pro-BMP, wheezing, cardiac panel. Chest x-ray is ordered. Patient is given 125 mg Solu-Medrol IV. Patient is given DuoNeb 3. Patient refuses duo neb as it causes her to have tachycardia. Patient is given azithromycin 500 mg by mouth as well as thousand milligrams Rocephin IV. CBC shows slight leukocytosis of 11.7, CMP is unremarkable except for elevated carbon dioxide at 34.1, BUN is 25, troponin is less than 0.02, and BNP is 167. Chest x-ray shows no acute process per radiologist. Patient complains of heartburn and was given GI cocktail 1 as well as Pepcid 20 mg by mouth. Patient is felt stable for discharge home. Patient is given a prescription for Xopenex nebulizer unit dose vials every 4 hours when necessary. Patient also given ipratropium bromide unit dose vials every 6 hours. Patient to continue her prednisone taper pack as previously prescribed. Patient will be continued on azithromycin 500 mg daily for the next 5 days. Patient should follow-up with her primary care physician or email operations manager as needed. Patient can return to emergency department as needed. Diagnosis Primary Impression: Acute wheezy bronchitis Additional Impression: COPD (chronic obstructive pulmonary disease) Qualified Codes: J44.1 - Chronic obstructive pulmonary disease with (acute) exacerbation Referrals: Harsh House MD Primary Care Physician Patient Instructions: COPD (Chronic Obstructive Pulmonary Disease) (ED), General Instructions, How to Use a Nebulizer (ED) Additional Instructions: Patient is felt stable for discharge home. Patient is given a prescription for Xopenex nebulizer unit dose vials every 4 hours when necessary. Patient also given ipratropium bromide unit dose vials every 6 hours. Patient to continue her prednisone taper pack as previously prescribed. Patient will be continued on azithromycin 500 mg daily for the next 5 days. Patient should follow-up with her primary care physician or email operations manager as needed. Patient can return to emergency department as needed. Med/Other Pt SpecificInfo: Prescription(s) given Scripts Azithromycin (Azithromycin) 500 Mg Tab 500 MG PO DAILY for Infection, #5 TAB 0 Refills Prov: Riri Tang MD 07/22/17 Levalbuterol Neb (Xopenex Neb) 1.25 Mg/3 Ml Neb 1.25 MG NEB QID for Breathing Treatment, #120 [place]BULE 0 Refills Prov: Riri Tang MD 07/22/17 Ipratropium Neb (Ipratropium Neb) 0.5 Mg/2.5 Ml Amp 0.5 MG NEB Q6HR NEB Y for SHORTNESS OF BREATH, #120 NEBULE 0 Refills Prov: Riri Tang MD 07/22/17 Disposition: 01 DISCHARGE HOME Condition: Stable [place] Olivarez Jul 22, 2017 15:48
--- NOTE | 2017-07-22 16:08 | RADRPT ---
EXAM DATE/TIME: 07/22/2017 16:00 [facility] COMPARISON: CHEST SINGLE AP, July 19, 2017, 7:29. CHEST PA & LAT, October 07, 2016, 15:17. INDICATIONS : Cough and shortness of breath. MEDICAL HISTORY : Hypertension. Congestive heart failure. Chronic obstructive pulmonary disease. Asthma. SURGICAL HISTORY : None. ENCOUNTER: Initial ACUITY: 3 days PAIN SCORE: 0/10 LOCATION: Bilateral chest FINDINGS: Redemonstration of elevation of the left hemidiaphragm similar to prior exams. No new focal pleural o r parenchymal opacities. Cardiomediastinal contours are stable. Remainder of exam is unchanged. CONCLUSION: 1. Stable examination with chronic elevation of left hemidiaphragm. 2. No acute abnormality. Sammy Mckeon MD on July 22, 2017 at 16:04 Board Certified Radiologist. This report was verified electronically.
[2017-07-22] MEDS ORDERED: AZITHROMYCIN 250 MG TAB PO ONE (16:30)
[2017-07-22] MEDS ORDERED: cefTRIAXone INJ 1,000 MG in SODIUM CHLORIDE 0.9% INJ 100 ML IV ONE (16:30)
[2017-07-22] MEDS: SODIUM CHLORIDE 0.9% FLUSH 10 ML FLUSH IVF PRN ×2 (16:49→18:10)
[2017-07-22 17:04] LABS: AUTOMATED NEUTROPHIL # 9.3 TH/MM3 (1.8-7.7); BASOPHIL % 0.1 % (0.0-2.0); HEMATOCRIT 39.7 % (35.0-46.0); HEMOGLOBIN 12.8 GM/DL (11.6-15.3); LYMPH % 10.1 % (9.0-44.0); LYMPHOCYTE # 1.2 TH/MM3 (1.0-4.8); MEAN CELL VOLUME 83.2 FL (80.0-100.0); MEAN CORPUSCULAR HEMOGLOBIN 26.8 PG (27.0-34.0); MEAN CORPUSCULAR HGB CONC 32.2 % (32.0-36.0); MEAN PLATELET VOLUME 7.9 FL (7.0-11.0); MONO % 10.3 % (0.0-8.0); MONOCYTE # 1.2 TH/MM3 (0-0.9); NEUT % 79.5 % (16.0-70.0); PLATELET COUNT 275 TH/MM3 (150-450); RED BLOOD COUNT 4.77 MIL/MM3 (4.00-5.30); RED CELL DISTRIBUTION WIDTH 15.2 % (11.6-17.2); WHITE BLOOD COUNT 11.7 TH/MM3 (4.0-11.0)
[2017-07-22 17:31] LABS: ALBUMIN 3.3 GM/DL (3.4-5.0); ALT (GPT) 15 U/L (10-53); AST (GOT) 10 U/L (15-37); BICARBONATE 34.1 MEQ/L (21.0-32.0); BLOOD UREA NITROGEN 25 MG/DL (7-18); CALCIUM 8.8 MG/DL (8.5-10.1); CHLORIDE 103 MEQ/L (98-107); CREATININE 0.93 MG/DL (0.50-1.00); GLOMERULAR FILTRATION RATE 61 ML/MIN (>89); GLUCOSE,RANDOM 92 MG/DL (74-106); MAGNESIUM 2.5 MG/DL (1.5-2.5); SODIUM (NA) 142 MEQ/L (136-145)
[2017-07-22 17:36] LABS: ALKALINE PHOSPHATASE 92 U/L (45-117); TOTAL BILIRUBIN ADULT 0.3 MG/DL (0.2-1.0); TOTAL PROTEIN 7.6 GM/DL (6.4-8.2); TROPONIN I LESS THAN 0.02 NG/ML (0.02-0.05)
[2017-07-22] MEDS ORDERED: FAMOTIDINE 20 MG/2 ML VIAL IV PUSH ONE (18:00)
[2017-07-22] MEDS ORDERED: LIDOCAINE VISCOUS 2% SOLN 15 ML UDC PO ONE (18:00)
[2017-07-22] MEDS ORDERED: ALUMINUM/MAGNESIUM/SIMETH 30 ML CUP PO ONE (18:00)
[2017-07-22] MEDS ORDERED: IPRA0.02 NEB (18:01)
[2017-07-22] MEDS ORDERED: AZIT500T2 PO (18:01)
[2017-07-22] MEDS ORDERED: LEVA3NEB12 NEB (18:01)
--- NOTE | 2017-07-22 18:33 | PD ---
Physical Exam Date Seen by Provider: Jul 22, 2017 Narrative Patient presents complaining with cough and shortness of breath Data Data Last Documented VS Vital Signs Date Time Temp Pulse Resp B/P (MAP) Pulse Ox O2 Delivery O2 Flow Rate FiO2 07/22/17 15:31 65 28 95 Nasal Cannula 2.00 07/22/17 15:02 98.5 126/73 (90) Orders Orders Complete Blood Count With Diff (07/22/17 15:42) Comprehensive Metabolic Panel (07/22/17 15:42) B-Type Natriuretic Peptide (07/22/17 15:42) Magnesium (Mg) (07/22/17 15:42) Ckmb (Isoenzyme) Profile (07/22/17 15:42) Troponin I (07/22/17 15:42) Iv Access Insert/Monitor (07/22/17 15:42) Electrocardiogram (07/22/17 15:42) Ecg Monitoring (07/22/17 15:42) Oximetry (07/22/17 15:42) Oxygen Administration (07/22/17 15:42) Chest, Pa & Lat (07/22/17 15:42) Sodium Chloride 0.9% Flush (Ns Flush) (07/22/17 15:45) Methylprednisolone So Succ Inj (Solumedr (07/22/17 15:45) Albuterol-Ipratropium Neb (Duoneb Neb) (07/22/17 15:45) Azithromycin (Zithromax) (07/22/17 16:30) Ceftriaxone Inj (Rocephin Inj) (07/22/17 16:30) Famotidine Inj (Pepcid Inj) (07/22/17 18:00) Al-Mag Hy-Si 40-40-4 Mg/Ml Liq (Mag-Al P (07/22/17 18:00) Lidocaine 2% Viscous (Xylocaine 2% Visco (07/22/17 18:00) Ed Discharge Order (07/22/17 18:09) Labs Laboratory Tests Test 07/22/17 16:40 White Blood Count 11.7 TH/MM3 Red Blood Count 4.77 MIL/MM3 Hemoglobin 12.8 GM/DL Hematocrit 39.7 % Mean Corpuscular Volume 83.2 FL Mean Corpuscular Hemoglobin 26.8 PG Mean Corpuscular Hemoglobin Concent 32.2 % Red Cell Distribution Width 15.2 % Platelet Count 275 TH/MM3 Mean Platelet Volume 7.9 FL Neutrophils (%) (Auto) 79.5 % Lymphocytes (%) (Auto) 10.1 % Monocytes (%) (Auto) 10.3 % Eosinophils (%) (Auto) 0.0 % Basophils (%) (Auto) 0.1 % Neutrophils # (Auto) 9.3 TH/MM3 Lymphocytes # (Auto) 1.2 TH/MM3 Monocytes # (Auto) 1.2 TH/MM3 Eosinophils # (Auto) 0.0 TH/MM3 Basophils # (Auto) 0.0 TH/MM3 CBC Comment DIFF FINAL Differential Comment Blood Urea Nitrogen 25 MG/DL Creatinine 0.93 MG/DL Random Glucose 92 MG/DL Total Protein 7.6 GM/DL Albumin 3.3 GM/DL Calcium Level 8.8 MG/DL Magnesium Level 2.5 MG/DL Alkaline Phosphatase 92 U/L Aspartate Amino Transf (AST/SGOT) 10 U/L Alanine Aminotransferase (ALT/SGPT) 15 U/L Total Bilirubin 0.3 MG/DL Sodium Level 142 MEQ/L Potassium Level 4.4 MEQ/L Chloride Level 103 MEQ/L Carbon Dioxide Level 34.1 MEQ/L Anion Gap 5 MEQ/L Estimat Glomerular Filtration Rate 61 ML/MIN Total Creatine Kinase 37 U/L Troponin I LESS THAN 0.02 NG/ML B-Type Natriuretic Peptide 167 PG/ML MDM Supervised Visit with CHARLA: Yes Narrative Course I, Dr. Tang, have reviewed the advance practice practitioner's documentation and am in agreement, met with the patient face to face, made the diagnosis, and the medical decision making was done by me. *My assessment and Findings: Patient is awake and alert and speaking to me in complete sentences without any respiratory distress. Please see Britton Olivarez PA-C's note for results of laboratory and radiographic evaluation, ED course, final diagnosis and disposition Diagnosis Primary Impression: Acute wheezy bronchitis Additional Impression: COPD (chronic obstructive pulmonary disease) Qualified Codes: J44.1 - Chronic obstructive pulmonary disease with (acute) exacerbation Referrals: Harsh [facility] MD Primary Care Physician Patient Instructions: General Instructions, COPD (Chronic Obstructive Pulmonary Disease) (ED), How to Use a Nebulizer (ED) Departure Forms: Tests/Procedures Additional Instruction: Patient is felt stable for discharge home. Patient is given a prescription for Xopenex nebulizer unit dose vials every 4 hours when necessary. Patient also given ipratropium bromide unit dose vials every 6 hours. Patient to continue her prednisone taper pack as previously prescribed. Patient will be continued on azithromycin 500 mg daily for the next 5 days. 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 Patient can return to emergency department as needed. Scripts Azithromycin (Azithromycin) 500 Mg Tab 500 MG PO DAILY for Infection, #5 TAB 0 Refills Prov: Riri Tang MD 07/22/17 Levalbuterol Neb (Xopenex Neb) 1.25 Mg/3 Ml Neb 1.25 MG NEB QID for Breathing Treatment, #120 NEBULE 0 Refills Prov: Riri Tang MD 07/22/17 Ipratropium Neb (Ipratropium Neb) 0.5 Mg/2.5 Ml Amp 0.5 MG NEB Q6HR NEB Y for SHORTNESS OF BREATH, #120 NEBULE 0 Refills Prov: Riri Tang MD 07/22/17 Disposition: DISCHARGE HOME Condition: Stable Riri Tang MD Jul 22, 2017 18:33
--- NOTE | 2017-07-22 23:43 | EKG ---
Date Performed: 07/22/2017 Time Performed: 17:14:27 PTAGE: 61 years EKG: Sinus rhythm WITH SHORT [place] INTERVAL POSSIBLE RIGHT VENTRICULAR CONDUCTION DELAY NONSPECIFIC T-WAVE ABNORMALITY AB NORMAL ECG PREVIOUS TRACING : 07/19/2017 07.57 Compared to prior tracing no significant change DOCTOR: Hernandez Bernardo Interpretating Date/Time 07/22/2017 23:41:56
[2017-07-28] MEDS ORDERED: [UNRECOGNIZED DRUG - CODE] PO (09:56)
[2017-08-04] MEDS ORDERED: LEVA500T33 PO (10:14)
== END 2017-07-22 18:40 | disposition home or self-care (01) ==
LOC: NEPE 14:58
DX: J20.9 Acute bronchitis, unspecified (principal); J44.0 Chronic obstructive pulmonary disease with (acute) lower respiratory infection; J44.1 Chronic obstructive pulmonary disease with (acute) exacerbation; I48.91 Unspecified atrial fibrillation; I11.0 Hypertensive heart disease with heart failure; I50.9 Heart failure, unspecified; F41.9 Anxiety disorder, unspecified; K21.9 Gastro-esophageal reflux disease without esophagitis; R94.31 Abnormal electrocardiogram [ECG] [EKG]
CPT/HCPCS: 71020; 80053; 82550; 83735; 83880; 84484; 85025; 93005; 94664; 96365; 96375; 99285; J0696; J2930

== ENCOUNTER 2017-07-23 22:01 | Emergency (ER) | payer MEDICARE, OTHER ==
[~2017-07-23] VITALS: Ht 170.2 cm; Wt 135.0 kg
[~2017-07-23 22:01] MED LIST changes: +AZIT500T2 PO; +IPRA0.02 NEB; +LEVA3NEB12 NEB
[2017-07-23 22:02] VITALS: BP 149/67; PULSE 98; RESP 18; TEMP 99; O2SAT 91
[2017-07-23 22:30] VITALS: RESP 19; O2SAT 97
[2017-07-23] MEDS ORDERED: SODIUM CHLORIDE 0.9% FLUSH 10 ML FLUSH IVF PRN (22:30)
--- NOTE | 2017-07-23 22:41 | PD ---
HPI Chief Complaint: Edema Time Seen by Provider: 22:09 Travel History International Travel<30 days: No Contact w/Intl Traveler<30days: No Traveled to known affect area: No History of Present Illness HPI 61-year-old female patient presents emergency department for evaluation of bilateral leg swelling and cough. Patient states his symptoms started on Wednesday. Patient was evaluated in our facility on Wednesday and then again on . Patient states she was instructed she had bronchitis. She states the cough has been persistent. She said yesterday when she was at her facility she coughed up thick green phlegm however the cough is not always productive. Patient denies any exacerbating or relieving factors for the cough. Patient denies any abdominal pain, nausea, vomiting, diarrhea. Patient states she believes she is been running fevers but has not checked with a thermometer. Patient states her ankles are swollen. Her ankles do look large however appears proportionate to the rest of her body. PFSH Past Medical History Hx Anticoagulant Therapy: Yes (ASA) Arthritis: Yes Atrial Fibrillation: Yes Anxiety: Yes Depression: No Heart Rhythm Problems: Yes Cardiac Catheterization: No Cardiovascular Problems: Yes High Cholesterol: No Congestive Heart Failure: Yes COPD: Yes Diabetes: No Diminished Hearing: No Endocrine: No Gastrointestinal Disorders: Yes GERD: Yes Genitourinary: No Heparin Induced Thrombocytopen: No Hypertension: Yes Immune Disorder: No Implanted Vascular Access Dvce: No Musculoskeletal: Yes (SCOLIOSIS) Neurologic: No Psychiatric: Yes Reproductive: No Respiratory: Yes Immunizations Current: Yes Myocardial Infarction: No Sickle Cell Disease: No Sleep Apnea: Yes Thyroid Disease: No Ulcer: No Menopausal: Yes : 1 Para: 1 Miscarriage: 0 : 0 Past Surgical History Coronary Artery Bypass Graft: No Social History Alcohol Use: No Tobacco Use: No Substance Use: No Allergies-Medications (Allergen,Severity, Reaction): Coded Allergies: acetaminophen (Verified Allergy, Severe, Tachycardia, swelling, 07/23/17) Swelling lips, throat hydrocodone (Verified Allergy, Severe, Tachycardia, swelling, 07/23/17) Swelling lips, throat ibuprofen (Verified Allergy, Severe, Swelling, 07/23/17) Swelling lips, throat morphine (Verified Allergy, Severe, Swelling, 07/23/17) Swelling lips , throat propoxyphene (Verified Allergy, Severe, Swelling, 07/23/17) Swelling, lips , throat albuterol (Verified Allergy, Intermediate, Tachycardia, 07/23/17) amoxicillin (Verified Allergy, Unknown, Atrial Fibrillation, 07/23/17) sertraline (Verified Allergy, Unknown, 07/23/17) pantoprazole (Verified Adverse Reaction, Unknown, Nausea/Vomiting, ) Uncoded Allergies: INHALERS FOR COPD (ALL) (Allergy, Severe, PALPITATIONS/DIAPHORESIS, 11/16/13 ) VICOPROFEN (Allergy, Severe, Swelling, 11/16/13) "ANY PAIN PILLS" (Adverse Reaction, Severe, AFIB, 11/16/13) Reported Meds & Prescriptions Reported Meds & Active Scripts Active Azithromycin 500 Mg Tab 500 Mg PO DAILY Ipratropium Neb (Ipratropium [place]) 0.5 Mg/2.5 Ml Amp 0.5 Mg NEB Q6HR NEB PRN Hospital Bed - Electric 1 Ea Ea Ea .ROUTE DIRECTED Guaiatussin AC Liquid (Codeine Phosphate/Guaifenesin) 10 Mg-100 Mg/5 Ml (5 Ml) Liquid 5 Ml PO Q6HR PRN Guaifenesin ER 12 HR (Guaifenesin) 1,200 Mg [place] 1,200 Mg PO BID Prednisone (48) 10 mg tab Dose Pack (Prednisone) 10 Mg Dspk 10 Mg PO DIRECTED Symbicort Inh (Budesonide/Formoterol Fumarate) 80-4.5 Mcg/Act Aero 1 Puff INH Q12HR Hydralazine HCl 10 Mg Tablet 1 Tab PO QID Lasix (Furosemide) 20 Mg Tab 20 Mg PO DAILY PRN Lorazepam 1 Mg Tab 1 Mg PO BID PRN Enalapril (Enalapril Maleate) 20 Mg Tab 20 Mg PO BID Reported Ranitidine (Ranitidine HCl) 150 Mg Tab 150 Mg PO BID Flonase Nasal Retsof (Fluticasone Nasal Retsof) 50 Mcg/Act Retsof 1 Retsof EACH NARE BID PRN Sotalol (Sotalol HCl) 120 Mg Tab 120 Mg PO BID Aspirin 325 Mg Tab 325 Mg PO QID PRN Review of Systems Except as stated in HPI: all other systems reviewed are Neg Physical Exam Narrative GENERAL: Well-nourished, well-developed morbidly obese 61-year-old female patient in no acute respiratory distress. Nontoxic appearing. SKIN: Focused skin assessment warm/dry. HEAD: Normocephalic. Atraumatic. EYES: No scleral icterus. No injection or drainage. NECK: Supple, trachea midline. No JVD or lymphadenopathy. CARDIOVASCULAR: Regular rate and rhythm without murmurs, gallops, or rubs. RESPIRATORY: Expiratory wheezing noted throughout bilateral lungs. Diminished breath sounds in the bases. No accessory muscle use. GASTROINTESTINAL: Abdomen soft, non-tender, nondistended. MUSCULOSKELETAL: No obvious deformities. No clubbing. No cyanosis. No obvious edema. No pitting edema. BACK: Nontender without obvious deformity. No CVA tenderness. Data Data Last Documented VS Vital Signs Date Time Temp Pulse Resp B/P (MAP) Pulse Ox O2 Delivery O2 Flow Rate FiO2 07/23/17 22:30 19 97 Nasal Cannula 2.00 07/23/17 22:02 99.0 98 Orders Orders Complete Blood Count With Diff (07/23/17 22:22) Basic Metabolic Panel (Bmp) (07/23/17 22:22) B-Type Natriuretic Peptide (07/23/17 22:22) Ckmb (Isoenzyme) Profile (07/23/17 22:22) Troponin I (07/23/17 22:22) Influenzae A/B Antigen (07/23/17 22:22) Iv Access Insert/Monitor (07/23/17 22:22) Electrocardiogram (07/23/17 22:22) Ecg Monitoring (07/23/17 22:22) Oximetry (07/23/17 22:22) Chest, Single Ap (07/23/17 22:22) Sodium Chloride 0.9% Flush (Ns Flush) (07/23/17 22:30) Labs Laboratory Tests Test 07/23/17 22:30 [facility] Medical Decision Making Medical Screen Exam Complete: Yes Emergency Medical Condition: Yes Differential Diagnosis Differential diagnoses include but not limited to CHF exacerbation, influenza, bronchitis, URI, pneumonia Narrative Course Patient placed on monitor, IV obtained, blood work sent to the lab, CBC, BMP, troponin, CK-MB, BNP, influenza ordered and pending. Chest x-ray ordered and pending. Dr. Macias assumes care for this patient. Please see his documentation for further details and disposition. Miranda Zamarripa Jul 23, 2017 22:40
--- NOTE | 2017-07-23 23:00 | RADRPT ---
EXAM DATE/TIME: 07/23/2017 22:46 [facility] COMPARISON: CHEST SINGLE AP, July 19, 2017, 7:29. INDICATIONS : Shortness of breath, swelling in lower limbs MEDICAL HISTORY : Hypertension. Congestive heart failure. Chronic obstructive pulmonary disease. Asthma SURGICAL HISTORY : None. ENCOUNTER: Initial ACUITY: 1 day PAIN SCORE: 0/10 LOCATION: Bilateral chest FINDINGS: A single view of the chest demonstrates the lungs to be symmetrically aerated without evidence of mas s, infiltrate or effusion. The cardiomediastinal contours are unremarkable. Marked elevation of the left hemidiaphragm is similar to prior. Osseous structures are intact. CONCLUSION: No acute findings. Marked elevation of left hemidiaphragm, stable. Matty Chicas MD on July 23, 2017 at 22:57 Board Certified Radiologist. This report was verified electronically.
[2017-07-23 23:13] LABS: AUTOMATED NEUTROPHIL # 11.4 TH/MM3 (1.8-7.7); BASOPHIL # 0.1 TH/MM3 (0-0.2); BASOPHIL % 0.5 % (0.0-2.0); HEMATOCRIT 40.3 % (35.0-46.0); HEMOGLOBIN 12.9 GM/DL (11.6-15.3); LYMPH % 13.5 % (9.0-44.0); MEAN CELL VOLUME 82.8 FL (80.0-100.0); MEAN CORPUSCULAR HEMOGLOBIN 26.4 PG (27.0-34.0); MEAN CORPUSCULAR HGB CONC 31.9 % (32.0-36.0); MEAN PLATELET VOLUME 8.3 FL (7.0-11.0); MONO % 7.4 % (0.0-8.0); MONOCYTE # 1.1 TH/MM3 (0-0.9); NEUT % 78.6 % (16.0-70.0); PLATELET COUNT 353 TH/MM3 (150-450); RED BLOOD COUNT 4.86 MIL/MM3 (4.00-5.30); RED CELL DISTRIBUTION WIDTH 15.5 % (11.6-17.2); WHITE BLOOD COUNT 14.5 TH/MM3 (4.0-11.0)
--- NOTE | 2017-07-23 23:19 | PD ---
Physical Exam Date Seen by Provider: Jul 23, 2017 Time Seen by Provider: 23:17 Narrative The patient is a 61-year-old female who presents emergency department for cough and lower extremity edema. The patient was initially evaluated by the mid- level provider. Please refer to the initial history, physical, diagnostic evaluation, and treatment modality plan. The patient was signed out at 11 PM laboratory evaluation pending. Data Data Last Documented VS Vital Signs Date Time Temp Pulse Resp B/P (MAP) Pulse Ox O2 Delivery O2 Flow Rate FiO2 07/23/17 22:30 19 97 Nasal Cannula 2.00 07/23/17 22:02 99.0 98 Orders Orders Complete Blood Count With Diff (07/23/17 22:22) Basic Metabolic Panel (Bmp) (07/23/17 22:22) B-Type Natriuretic Peptide (07/23/17 22:22) Ckmb (Isoenzyme) Profile (07/23/17 22:22) Troponin I (07/23/17 22:22) Influenzae A/B Antigen (07/23/17 22:22) Iv Access Insert/Monitor (07/23/17 22:22) Electrocardiogram (07/23/17 22:22) Ecg Monitoring (07/23/17 22:22) Oximetry (07/23/17 22:22) Chest, Single Ap (07/23/17 22:22) Sodium Chloride 0.9% Flush (Ns Flush) (07/23/17 22:30) Sodium Chlorid 0.9% 500 Ml Inj (Ns 500 M (07/24/17 00:00) Ct Pulmonary Angiogram (07/23/17 ) Iodixanol 320 Inj (Rad Ct) (Visipaque 32 (07/24/17 00:57) Ed Discharge Order (07/24/17 01:57) Labs Laboratory Tests Test 07/23/17 22:30 White Blood Count 14.5 TH/MM3 Red Blood Count 4.86 MIL/MM3 Hemoglobin 12.9 GM/DL Hematocrit 40.3 % Mean Corpuscular Volume 82.8 FL Mean Corpuscular Hemoglobin 26.4 PG Mean Corpuscular Hemoglobin Concent 31.9 % Red Cell Distribution Width 15.5 % Platelet Count 353 TH/MM3 Mean Platelet Volume 8.3 FL Neutrophils (%) (Auto) 78.6 % Lymphocytes (%) (Auto) 13.5 % Monocytes (%) (Auto) 7.4 % Eosinophils (%) (Auto) 0.0 % Basophils (%) (Auto) 0.5 % Neutrophils # (Auto) 11.4 TH/MM3 Lymphocytes # (Auto) 2.0 TH/MM3 Monocytes # (Auto) 1.1 TH/MM3 Eosinophils # (Auto) 0.0 TH/MM3 Basophils # (Auto) 0.1 TH/MM3 CBC Comment DIFF FINAL Differential Comment Blood Urea Nitrogen 42 MG/DL Creatinine 1.39 MG/DL Random Glucose 113 MG/DL Calcium Level 9.3 MG/DL Sodium Level 137 MEQ/L Potassium Level 4.4 MEQ/L Chloride Level 100 MEQ/L Carbon Dioxide Level 31.7 MEQ/L Anion Gap 5 MEQ/L Estimat Glomerular Filtration Rate 39 ML/MIN Total Creatine Kinase 39 U/L Troponin I LESS THAN 0.02 NG/ML B-Type Natriuretic Peptide 62 PG/ML [facility] Medical Record Reviewed: Yes Supervised Visit with CHARLA: Yes Interpretation(s) EKG reveals sinus bradycardia. Nonspecific T wave changes. Laboratory Tests Test 07/23/17 22:30 White Blood Count 14.5 TH/MM3 Red Blood Count 4.86 MIL/MM3 Hemoglobin 12.9 GM/DL Hematocrit 40.3 % Mean Corpuscular Volume 82.8 FL Mean Corpuscular Hemoglobin 26.4 PG Mean Corpuscular Hemoglobin Concent 31.9 % Red Cell Distribution Width 15.5 % Platelet Count 353 TH/MM3 Mean Platelet Volume 8.3 FL Neutrophils (%) (Auto) 78.6 % Lymphocytes (%) (Auto) 13.5 % Monocytes (%) (Auto) 7.4 % Eosinophils (%) (Auto) 0.0 % Basophils (%) (Auto) 0.5 % Neutrophils # (Auto) 11.4 TH/MM3 Lymphocytes # (Auto) 2.0 TH/MM3 Monocytes # (Auto) 1.1 TH/MM3 Eosinophils # (Auto) 0.0 TH/MM3 Basophils # (Auto) 0.1 TH/MM3 CBC Comment DIFF FINAL Differential Comment Blood Urea Nitrogen 42 MG/DL Creatinine 1.39 MG/DL Random Glucose 113 MG/DL Calcium Level 9.3 MG/DL Sodium Level 137 MEQ/L Potassium Level 4.4 MEQ/L Chloride Level 100 MEQ/L Carbon Dioxide Level 31.7 MEQ/L Anion Gap 5 MEQ/L Estimat Glomerular Filtration Rate 39 ML/MIN Total Creatine Kinase 39 U/L Troponin I LESS THAN 0.02 NG/ML B-Type Natriuretic Peptide 62 PG/ML Date/Time Source Procedure Growth Status 07/23/17 22:30 Nasal Washing Influenza Types A,B Antigen (KHURRAM) - Final NEGATIVE FOR FLU A AND B ANTIGEN.... Complete Chest x-ray reveals no acute findings Differential Diagnosis Differential diagnosis includes bronchitis, pneumonia, congestive heart failure , pleural effusion, GERD, ACS, pulmonary embolism, dependent edema, DVT. Narrative Course I, Dr. Macias, have reviewed the advance practice practitioner's documentation and am in agreement, met with the patient face to face, made the diagnosis, and the medical decision making was done by me. *My assessment and Findings: The patient is a 61-year-old female who was initially evaluated by the mid-level provider, please refer to the initial history, physical, diagnostic evaluation, treatment modality plan. Patient was evaluated in the emergency department several times in the last week, diagnosed with bronchitis and placed on prednisone. She is apparently allergic to all her inhalers for COPD. She complains of lower extremity edema. The patient's chest x-ray reveals chronic elevated left hemidiaphragm, otherwise, unremarkable. Influenza screen is negative. Troponin is unremarkable. BNP is within normal limits. The patient was tachycardic, therefore, CT pulmonary angiogram was ordered to rule out PE. CT was negative. The patient appears to have bronchitis, is already on steroids and states she is allergic to on inhalers. Patient is advised to wear STEVEN hose for her lower extremity edema and is advised to follow-up with her primary physician. Diagnosis Primary Impression: Bronchitis Additional Impressions: COPD (chronic obstructive pulmonary disease) Qualified Codes: J44.9 - Chronic obstructive pulmonary disease, unspecified Dependent edema Patient Instructions: General Instructions Additional Instruction: Please provide a patient a copy of her CT results and lab results at discharge. Phenergan with codeine as needed. Follow-up with your primary physician. Return if symptoms worsen or progress. Wear STEVEN hose/compression stockings. Med/Other Pt SpecificInfo: Prescription(s) given Scripts Promethazine-Codeine Liq (Promethazine-Codeine Liq) 6.25-10 Mg/5 Ml Syrp 5 ML PO Q6H Y for COUGH AND/OR COLD SYMPTOMS, #240 ML 0 Refills Prov: Ac Macias MD 07/24/17 Disposition: 01 DISCHARGE HOME Condition: Stable Ac Macias MD Jul 23, 2017 23:19
[2017-07-23 23:27] LABS: BICARBONATE 31.7 MEQ/L (21.0-32.0); BLOOD UREA NITROGEN 42 MG/DL (7-18); CALCIUM 9.3 MG/DL (8.5-10.1); CHLORIDE 100 MEQ/L (98-107); CREATININE 1.39 MG/DL (0.50-1.00); GLOMERULAR FILTRATION RATE 39 ML/MIN (>89); GLUCOSE,RANDOM 113 MG/DL (74-106); SODIUM (NA) 137 MEQ/L (136-145)
[2017-07-23 23:34] LABS: TROPONIN I LESS THAN 0.02 NG/ML (0.02-0.05)
[2017-07-24] MEDS ORDERED: SODIUM CHLORID 0.9% 500 ML INJ 500 ML IV ONE
[2017-07-24] MEDS ORDERED: IODIXANOL 320 MG/ML 10 ML VIAL (for Rad CT) IVCONTRAST ONE (00:57)
--- NOTE | 2017-07-24 01:38 | RADRPT ---
EXAM DATE/TIME: 07/24/2017 00:45 [facility] COMPARISON: CHEST SINGLE AP, July 23, 2017, 22:46. CHEST SINGLE AP, December 16, 2014, 17:15. INDICATIONS : Shortness of breath. IV CONTRAST: 50 cc Visipaque (iodixanol) IV RADIATION DOSE: 26.08 CTDIvol (mGy) MEDICAL HISTORY : Chronic obstructive pulmonary disease. Hypertension. SURGICAL HISTORY : Mastectomy, bilateral. ENCOUNTER: Initial ACUITY: 1 day PAIN SCALE: 0/10 LOCATION: chest TECHNIQUE: Volumetric scanning of the chest was performed using a pulmonary embolism protocol MIP images were re constructed. Using automated exposure control and adjustment of the mA and/or kV according to patien t size, radiation dose was kept as low as reasonably achievable to obtain optimal diagnostic quality images. DICOM format image data is available electronically for review and comparison. Follow-up recommendations for detected pulmonary nodules are based at a minimum on nodule size and pa tient risk factors according to Fleischner Society Guidelines. FINDINGS: PULMONARY ARTERIES: No filling defects are seen in the pulmonary arteries through the segmental level. LUNGS: Pronounced elevation of the left diaphragm with shruti-fissural and central left base atelectasis. PLEURAE: There is no pleural thickening or pleural effusion. MEDIASTINUM: There is good visualization of the great vessels of the middle mediastinum. No evidence of mediastin al or hilar adenopathy/mass. MUSCULOSKELETAL: Within normal limits for patient age. MISCELLANEOUS: The visualized upper abdominal organs demonstrate no acute abnormality. CONCLUSION: No evidence of pulmonary embolism Festus Reardon MD on July 24, 2017 at 1:32 Board Certified Radiologist. This report was verified electronically.
[2017-07-24] MEDS ORDERED: PROM6.256 PO (02:00)
--- NOTE | 2017-07-26 09:37 | EKG ---
Date Performed: 07/23/2017 Time Performed: 22:56:08 PTAGE: 61 years EKG: SINUS BRADYCARDIA WITH SHORT [place] INTERVAL POSSIBLE RIGHT VENTRICULAR CONDUCTION DELAY NONSPE CIFIC T-WAVE ABNORMALITY ABNORMAL ECG Compared to prior tracing no significant change DOCTOR: Shane Mcnair Interpretating Date/Time 07/26/2017 09:36:52
[2017-07-28] MEDS ORDERED: [UNRECOGNIZED DRUG - CODE] PO (09:56)
[2017-08-04] MEDS ORDERED: LEVA500T33 PO (10:14)
== END 2017-07-24 02:35 | disposition home or self-care (01) ==
LOC: NEPC 22:01
DX: J44.9 Chronic obstructive pulmonary disease, unspecified (principal); I11.0 Hypertensive heart disease with heart failure; I50.9 Heart failure, unspecified; I48.91 Unspecified atrial fibrillation; K21.9 Gastro-esophageal reflux disease without esophagitis
CPT/HCPCS: 71010; 71275; 80048; 82550; 83880; 84484; 85025; 87804; 93005; 96360; 96361; 99285; J7040; Q9967

== ENCOUNTER 2017-09-04 13:05 | Emergency (ER) | payer MEDICARE ==
[~2017-09-04 13:05] MED LIST changes: -LEVA3NEB12 NEB; +PROM6.256 PO; +XOPEAER4 INH
[2017-09-04 13:08] VITALS: BP 126/79; PULSE 99; RESP 20; TEMP 97.6; O2SAT 91
--- NOTE | 2017-09-04 13:32 | PD ---
HPI Chief Complaint: Cardiac Complaint Time Seen by Provider: 13:15 Travel History International Travel<30 days: No Contact w/Intl Traveler<30days: No Traveled to known affect area: No History of Present Illness HPI 61yo F with PMH of CHF, COPD on 2L home O2, paroxysmal afib not on anticoagulation here with c/o palpitations today. Said she felt her heart rate go up to 140s and then down to 20s. Denies any fever, chest pain, sob, n/v, abdominal pain, focal weakness or numbness. However, she said she feels funny and wants me to check her CHF. Pt follows with Dr. Martinez and last time she saw her was a month ago. PFSH Past Medical History Hx Anticoagulant Therapy: Yes (ASA) Arthritis: Yes Atrial Fibrillation: Yes Anxiety: Yes Depression: No Heart Rhythm Problems: Yes Cardiac Catheterization: No Cardiovascular Problems: Yes High Cholesterol: No Congestive Heart Failure: Yes COPD: Yes Diabetes: No Diminished Hearing: No Endocrine: No Gastrointestinal Disorders: Yes GERD: Yes Genitourinary: No Heparin Induced Thrombocytopen: No Hypertension: Yes Immune Disorder: No Implanted Vascular Access Dvce: No Musculoskeletal: Yes (SCOLIOSIS) Neurologic: No Psychiatric: Yes Reproductive: No Respiratory: Yes Immunizations Current: Yes Myocardial Infarction: No Sickle Cell Disease: No Sleep Apnea: Yes Thyroid Disease: No Ulcer: No Tetanus Vaccination: < 5 Years Influenza Vaccination: Yes Menopausal: Yes : 1 Para: 1 Miscarriage: 0 : 0 Past Surgical History Surgical History: No Previous Surgery Coronary Artery Bypass Graft: No Social History Alcohol Use: No Tobacco Use: No Substance Use: No Allergies-Medications (Allergen,Severity, Reaction): Coded Allergies: acetaminophen (Verified Allergy, Severe, Tachycardia, swelling, 09/04/17) Swelling lips, throat hydrocodone (Verified Allergy, Severe, Tachycardia, swelling, 09/04/17) Swelling lips, throat ibuprofen (Verified Allergy, Severe, Swelling, 09/04/17) Swelling lips, throat morphine (Verified Allergy, Severe, Swelling, 09/04/17) Swelling lips , throat propoxyphene (Verified Allergy, Severe, Swelling, 09/04/17) Swelling, lips , throat albuterol (Verified Allergy, Intermediate, Tachycardia, 09/04/17) amoxicillin (Verified Allergy, Unknown, Atrial Fibrillation, 09/04/17) codeine (Verified Allergy, Unknown, 09/04/17) sertraline (Verified Allergy, Unknown, 09/04/17) pantoprazole (Verified Adverse Reaction, Unknown, Nausea/Vomiting, 09/04/17) Uncoded Allergies: INHALERS FOR COPD (ALL) (Allergy, Severe, PALPITATIONS/DIAPHORESIS, 11/16/13 ) VICOPROFEN (Allergy, Severe, Swelling, 11/16/13) "ANY PAIN PILLS" (Adverse Reaction, Severe, AFIB, 11/16/13) Reported Meds & Prescriptions Reported Meds & Active Scripts Active Azithromycin 500 Mg Tab 500 Mg PO DAILY Ipratropium Neb (Ipratropium [place]) 0.5 Mg/2.5 Ml Amp 0.5 Mg NEB Q6HR NEB PRN Guaiatussin AC Liquid (Codeine Phosphate/Guaifenesin) 10 Mg-100 Mg/5 Ml (5 Ml) Liquid 5 Ml PO Q6HR PRN Symbicort Inh (Budesonide/Formoterol Fumarate) 80-4.5 Mcg/Act Aero 1 Puff INH Q12HR Lorazepam 1 Mg Tab 1 Mg PO BID PRN Enalapril (Enalapril Maleate) 20 Mg Tab 20 Mg PO BID Reported Hydralazine HCl 10 Mg Tablet 10 Mg PO BID Lasix (Furosemide) 20 Mg Tab 20 Mg PO DAILY Ranitidine (Ranitidine HCl) 150 Mg Tab 150 Mg PO BID Flonase Nasal [place] (Fluticasone Nasal [place]) 50 Mcg/Act [place] 1 [place] EACH NARE BID PRN Sotalol (Sotalol HCl) 120 Mg Tab 120 Mg PO BID Aspirin 325 Mg Tab 325 Mg PO QID PRN Review of Systems Except as stated in HPI: all other systems reviewed are Neg Physical Exam Narrative GENERAL: 61yo F anxious appearing. SKIN: Focused skin assessment warm/dry. HEAD: Atraumatic. Normocephalic. EYES: Pupils equal and round. No scleral icterus. No injection or drainage. ENT: No nasal bleeding or discharge. Mucous membranes pink and moist. NECK: Trachea midline. No JVD. CARDIOVASCULAR: Normal sinus rhythm in the 90s. No murmur appreciated. RESPIRATORY: No accessory muscle use. Clear to auscultation. Breath sounds equal bilaterally. GASTROINTESTINAL: Abdomen soft, non-tender, nondistended. MUSCULOSKELETAL: No obvious deformities. No clubbing. No cyanosis. No edema. NEUROLOGICAL: Awake and alert. No obvious cranial nerve deficits. Motor grossly within normal limits. Normal speech. PSYCHIATRIC: Appropriate mood and affect; insight and judgment normal. Data Data Last Documented VS Vital Signs Date Time Temp Pulse Resp B/P (MAP) Pulse Ox O2 Delivery O2 Flow Rate FiO2 09/04/17 13:13 Nasal Cannula 2.00 09/04/17 13:08 97.6 99 20 126/79 (95) 91 Orders Orders Electrocardiogram (09/04/17 ) Basic Metabolic Panel (Bmp) (09/04/17 13:25) B-Type Natriuretic Peptide (09/04/17 13:25) Complete Blood Count With Diff (09/04/17 13:25) Troponin I (09/04/17 13:25) Chest, Single Ap (09/04/17 13:25) Thyroid Stimulating Hormone (09/04/17 13:25) Lorazepam Inj (Ativan Inj) (09/04/17 16:00) Labs Laboratory Tests Test 09/04/17 13:33 White Blood Count 10.6 TH/MM3 Red Blood Count 4.66 MIL/MM3 Hemoglobin 12.7 GM/DL Hematocrit 39.2 % Mean Corpuscular Volume 84.2 FL Mean Corpuscular Hemoglobin 27.2 PG Mean Corpuscular Hemoglobin Concent 32.4 % Red Cell Distribution Width 16.2 % Platelet Count 277 TH/MM3 Mean Platelet Volume 7.9 FL Neutrophils (%) (Auto) 77.5 % Lymphocytes (%) (Auto) 14.1 % Monocytes (%) (Auto) 5.9 % Eosinophils (%) (Auto) 2.1 % Basophils (%) (Auto) 0.4 % Neutrophils # (Auto) 8.2 TH/MM3 Lymphocytes # (Auto) 1.5 TH/MM3 Monocytes # (Auto) 0.6 TH/MM3 Eosinophils # (Auto) 0.2 TH/MM3 Basophils # (Auto) 0.0 TH/MM3 CBC Comment DIFF FINAL Differential Comment Blood Urea Nitrogen 19 MG/DL Creatinine 0.95 MG/DL Random Glucose 133 MG/DL Calcium Level 8.7 MG/DL Sodium Level 142 MEQ/L Potassium Level 4.2 MEQ/L Chloride Level 103 MEQ/L Carbon Dioxide Level 33.3 MEQ/L Anion Gap 6 MEQ/L Estimat Glomerular Filtration Rate 60 ML/MIN Troponin I LESS THAN 0.02 NG/ML B-Type Natriuretic Peptide 81 PG/ML Thyroid Stimulating Hormone 3rd Gen 2.530 uIU/ML MDM Medical Decision Making Medical Screen Exam Complete: Yes Emergency Medical Condition: Yes Interpretation(s) EKG: NSR 93bpm. Normal axis. No ST segment elevation or depression. Differential Diagnosis Anxiety vs. paroxysmal afib vs. electrolyte abnormality vs. dehydration vs. hyperthyroidism Narrative Course 61yo F with paroxysmal afib here with c/o palpitations. However, pt's heart rate has been in the 90s here. Labs reviewed, no leukocytosis. H/H normal. Troponin negative. BNP 81. TSH normal. CXR showed left basal atelectasis and chronic elevation left hemidiaphragm. Pt appears very anxious and given ativan 1mg IV. Pt reevaluated at bedside and feels better. Pt's heart rate has been normal while she is in the ED. Pt denies any chest pain or sob. Return precautions given. Diagnosis Primary Impression: Palpitations Patient Instructions: General Instructions Departure Forms: Tests/Procedures Additional Instructions: Please follow up with your material worker in 2-3 days. Return to the ED if symptoms worsen. Med/Other Pt SpecificInfo: No Change to Meds Disposition: 01 DISCHARGE HOME Condition: Stable Katja Clayton Sep 04, 2017 13:31
[2017-09-04] MEDS ORDERED: FURO1TAB62 PO (13:34)
[2017-09-04] MEDS ORDERED: HYDR-3798 PO (13:34)
[2017-09-04 13:49] LABS: AUTOMATED NEUTROPHIL # 8.2 TH/MM3 (1.8-7.7); BASOPHIL % 0.4 % (0.0-2.0); EOSINOPHIL # 0.2 TH/MM3 (0-0.4); EOSINOPHIL % 2.1 % (0.0-4.0); HEMATOCRIT 39.2 % (35.0-46.0); HEMOGLOBIN 12.7 GM/DL (11.6-15.3); LYMPH % 14.1 % (9.0-44.0); LYMPHOCYTE # 1.5 TH/MM3 (1.0-4.8); MEAN CELL VOLUME 84.2 FL (80.0-100.0); MEAN CORPUSCULAR HEMOGLOBIN 27.2 PG (27.0-34.0); MEAN CORPUSCULAR HGB CONC 32.4 % (32.0-36.0); MEAN PLATELET VOLUME 7.9 FL (7.0-11.0); MONO % 5.9 % (0.0-8.0); MONOCYTE # 0.6 TH/MM3 (0-0.9); NEUT % 77.5 % (16.0-70.0); PLATELET COUNT 277 TH/MM3 (150-450); RED BLOOD COUNT 4.66 MIL/MM3 (4.00-5.30); RED CELL DISTRIBUTION WIDTH 16.2 % (11.6-17.2); WHITE BLOOD COUNT 10.6 TH/MM3 (4.0-11.0)
[2017-09-04 14:09] LABS: BICARBONATE 33.3 MEQ/L (21.0-32.0); BLOOD UREA NITROGEN 19 MG/DL (7-18); CALCIUM 8.7 MG/DL (8.5-10.1); CHLORIDE 103 MEQ/L (98-107); CREATININE 0.95 MG/DL (0.50-1.00); GLOMERULAR FILTRATION RATE 60 ML/MIN (>89); GLUCOSE,RANDOM 133 MG/DL (74-106); SODIUM (NA) 142 MEQ/L (136-145)
--- NOTE | 2017-09-04 14:14 | RADRPT ---
EXAM DATE/TIME: 09/04/2017 13:30 [facility] COMPARISON: No previous studies available for comparison. INDICATIONS : Heart Palpitations MEDICAL HISTORY : Chronic obstructive pulmonary disease. Congestive heart failure. Atrial Fib SURGICAL HISTORY : None. ENCOUNTER: Initial ACUITY: 1 day PAIN SCORE: 5/10 LOCATION: chest FINDINGS: A single view of the chest demonstrates left basilar atelectasis. Right lung clear. Heart normal in s ize. Elevation left hemidiaphragm again seen. The cardiomediastinal contours are unremarkable. Osse ous structures are intact. CONCLUSION: 1. Left basal atelectasis and chronic elevation left hemidiaphragm. Sherman Monroe MD on September 04, 2017 at 14:09 Board Certified Radiologist. This report was verified electronically.
[2017-09-04 14:19] LABS: TROPONIN I LESS THAN 0.02 NG/ML (0.02-0.05)
[2017-09-04] MEDS ORDERED: LORazepam 2 MG/ML VIAL IV PUSH ONE (16:00)
[2017-09-04 17:19] VITALS: BP 110/75; PULSE 67; RESP 25; O2SAT 97
--- NOTE | 2017-09-05 13:24 | EKG ---
Date Performed: 09/04/2017 Time Performed: 13:20:45 PTAGE: 61 years EKG: Baseline artifact makes interpretation of ST segments difficult Minor nonspecific T-wave ch anges present Since previous tracing, no significant change noted ABNORMAL ECG PREVIOUS TRACING : 07/23/2017 22.56 DOCTOR: Dejuan Stone Interpretating Date/Time 09/05/2017 13:24:21
== END 2017-09-04 17:44 | disposition home or self-care (01) ==
LOC: NEPE 13:05
DX: R00.2 Palpitations (principal); R94.31 Abnormal electrocardiogram [ECG] [EKG]; I11.0 Hypertensive heart disease with heart failure; I50.9 Heart failure, unspecified; I48.0 Paroxysmal atrial fibrillation; F41.9 Anxiety disorder, unspecified; J44.9 Chronic obstructive pulmonary disease, unspecified; K21.9 Gastro-esophageal reflux disease without esophagitis; M41.9 Scoliosis, unspecified
CPT/HCPCS: 71045; 80048; 83880; 84443; 84484; 85025; 93005; 96374; 99284; J2060

== ENCOUNTER 2017-09-05 11:16 | Emergency (ER) | payer MEDICARE ==
[~2017-09-05] VITALS: Ht 167.6 cm; Wt 130.0 kg
[2017-09-05 11:20] VITALS: BP 142/81; PULSE 77; RESP 20; TEMP 97.7; O2SAT 89
[2017-09-05] MEDS ORDERED: SODIUM CHLORIDE 0.9% FLUSH 10 ML FLUSH IVF PRN (11:30)
--- NOTE | 2017-09-05 11:57 | RADRPT ---
EXAM DATE/TIME: 09/05/2017 11:35 [facility] COMPARISON: CHEST SINGLE AP, September 04, 2017, 13:30. INDICATIONS : Chest palpitations today. MEDICAL HISTORY : Hypertension. Congestive heart failure. Chronic obstructive pulmonary disease. Afib. SURGICAL HISTORY : None. ENCOUNTER: Initial ACUITY: 1 day PAIN SCORE: 3/10 LOCATION: Bilateral chest FINDINGS: A single view of the chest demonstrates elevation left hemidiaphragm. Right lung clear. Heart normal in size. Mediastinum shifted to the right, stable. Osseous structures are intact. CONCLUSION: Elevation left hemidiaphragm, unchanged. Sherman Monroe MD on September 05, 2017 at 11:54 Board Certified Radiologist. This report was verified electronically.
[2017-09-05 12:32] LABS: AUTOMATED NEUTROPHIL # 8.3 TH/MM3 (1.8-7.7); BASOPHIL # 0.1 TH/MM3 (0-0.2); BASOPHIL % 0.7 % (0.0-2.0); EOSINOPHIL # 0.2 TH/MM3 (0-0.4); EOSINOPHIL % 2.1 % (0.0-4.0); HEMATOCRIT 37.3 % (35.0-46.0); HEMOGLOBIN 12.2 GM/DL (11.6-15.3); LYMPHOCYTE # 1.6 TH/MM3 (1.0-4.8); MEAN CELL VOLUME 83.1 FL (80.0-100.0); MEAN CORPUSCULAR HEMOGLOBIN 27.1 PG (27.0-34.0); MEAN CORPUSCULAR HGB CONC 32.6 % (32.0-36.0); MEAN PLATELET VOLUME 7.9 FL (7.0-11.0); MONO % 6.1 % (0.0-8.0); MONOCYTE # 0.7 TH/MM3 (0-0.9); NEUT % 76.1 % (16.0-70.0); PLATELET COUNT 275 TH/MM3 (150-450); RED BLOOD COUNT 4.49 MIL/MM3 (4.00-5.30); RED CELL DISTRIBUTION WIDTH 16.5 % (11.6-17.2); WHITE BLOOD COUNT 10.8 TH/MM3 (4.0-11.0)
[2017-09-05 12:43] LABS: PROTHROMBIN TIME - PATIENT 9.7 SEC (9.8-11.6)
--- NOTE | 2017-09-05 12:47 | PD ---
HPI Chief Complaint: Cardiac Complaint Time Seen by Provider: 11:29 Travel History International Travel<30 days: No Contact w/Intl Traveler<30days: No Traveled to known affect area: No History of Present Illness HPI 61 y/o female presents with feeling her heart rate go from the 40s to the 130s. She states she was here yesterday with similar. She states she is intermittently also getting short of breath but denies any chest pain or chest pressure. She states that she wears 2 L of oxygen all the time with her COPD. She denies specific modifying factors. She states Dr. Silverman is her senior reliability engineer. She denies any other concurrent complaints. She states this is been happening intermittently over the past couple of days. PFSH Past Medical History Hx Anticoagulant Therapy: Yes (ASA) Arthritis: Yes Atrial Fibrillation: Yes Anxiety: Yes Depression: No Heart Rhythm Problems: Yes Cardiac Catheterization: No Cardiovascular Problems: Yes (AFIB) High Cholesterol: No Congestive Heart Failure: Yes COPD: Yes Diabetes: No Diminished Hearing: No Endocrine: No Gastrointestinal Disorders: Yes GERD: Yes Genitourinary: No Heparin Induced Thrombocytopen: No Hypertension: Yes Immune Disorder: No Implanted Vascular Access Dvce: No Musculoskeletal: Yes (SCOLIOSIS) Neurologic: No Psychiatric: Yes Reproductive: No Respiratory: Yes Immunizations Current: Yes Myocardial Infarction: No Sickle Cell Disease: No Sleep Apnea: Yes Thyroid Disease: No Ulcer: No Influenza Vaccination: Yes Menopausal: Yes : 1 Para: 1 Miscarriage: 0 : 0 Past Surgical History Surgical History: No Previous Surgery Coronary Artery Bypass Graft: No Social History Alcohol Use: No Tobacco Use: No Substance Use: No Allergies-Medications (Allergen,Severity, Reaction): Coded Allergies: acetaminophen (Verified Allergy, Severe, Tachycardia, swelling, 09/04/17) Swelling lips, throat hydrocodone (Verified Allergy, Severe, Tachycardia, swelling, 09/04/17) Swelling lips, throat ibuprofen (Verified Allergy, Severe, Swelling, 09/04/17) Swelling lips, throat morphine (Verified Allergy, Severe, Swelling, 09/04/17) Swelling lips , throat propoxyphene (Verified Allergy, Severe, Swelling, 09/04/17) Swelling, lips , throat albuterol (Verified Allergy, Intermediate, Tachycardia, 09/04/17) amoxicillin (Verified Allergy, Unknown, Atrial Fibrillation, 09/04/17) codeine (Verified Allergy, Unknown, 09/04/17) sertraline (Verified Allergy, Unknown, 09/04/17) pantoprazole (Verified Adverse Reaction, Unknown, Nausea/Vomiting, 09/04/17) Uncoded Allergies: INHALERS FOR COPD (ALL) (Allergy, Severe, PALPITATIONS/DIAPHORESIS, 11/16/13 ) VICOPROFEN (Allergy, Severe, Swelling, 11/16/13) "ANY PAIN PILLS" (Adverse Reaction, Severe, AFIB, 11/16/13) Reported Meds & Prescriptions Reported Meds & Active Scripts Active Azithromycin 500 Mg Tab 500 Mg PO DAILY Ipratropium Neb (Ipratropium [place]) 0.5 Mg/2.5 Ml Amp 0.5 Mg NEB Q6HR NEB PRN Guaiatussin AC Liquid (Codeine Phosphate/Guaifenesin) 10 Mg-100 Mg/5 Ml (5 Ml) Liquid 5 Ml PO Q6HR PRN Symbicort Inh (Budesonide/Formoterol Fumarate) 80-4.5 Mcg/Act Aero 1 Puff INH Q12HR Lorazepam 1 Mg Tab 1 Mg PO BID PRN Enalapril (Enalapril Maleate) 20 Mg Tab 20 Mg PO BID Reported Hydralazine HCl 10 Mg Tablet 10 Mg PO BID Lasix (Furosemide) 20 Mg Tab 20 Mg PO DAILY Ranitidine (Ranitidine HCl) 150 Mg Tab 150 Mg PO BID Flonase Nasal [place] (Fluticasone Nasal [place]) 50 Mcg/Act [place] 1 [place] EACH NARE BID PRN Sotalol (Sotalol HCl) 120 Mg Tab 120 Mg PO BID Aspirin 325 Mg Tab 325 Mg PO QID PRN Review of Systems Except as stated in HPI: all other systems reviewed are Neg Physical Exam Narrative GENERAL: 61-year-old female in no apparent distress SKIN: Focused skin assessment warm/dry. HEAD: Atraumatic. Normocephalic. EYES: Pupils equal and round. No scleral icterus. No injection or drainage. ENT: No nasal bleeding or discharge. Mucous membranes pink and moist. NECK: Trachea midline. No JVD. CARDIOVASCULAR: Regular rate and rhythm. RESPIRATORY: No accessory muscle use. Clear to auscultation. Breath sounds equal bilaterally. NEUROLOGICAL: Awake and alert. No obvious cranial nerve deficits. Motor grossly within normal limits. Normal speech. PSYCHIATRIC: Appropriate mood and affect; insight and judgment normal. Data Data Last Documented VS Vital Signs Date Time Temp Pulse Resp B/P (MAP) Pulse Ox O2 Delivery O2 Flow Rate FiO2 09/05/17 14:23 104 24 116/66 (83) 97 Nasal Cannula 2.00 09/05/17 11:20 97.7 Orders Orders Electrocardiogram (09/05/17 11:29) B-Type Natriuretic Peptide (09/05/17 11:29) Ckmb (Isoenzyme) Profile (09/05/17 11:29) Complete Blood Count With Diff (09/05/17 11:29) Comprehensive Metabolic Panel (09/05/17 11:29) Magnesium (Mg) (09/05/17 11:29) Prothrombin Time / Inr (Pt) (09/05/17 11:29) Act Partial Throm Time (Ptt) (09/05/17 11:29) Troponin I (09/05/17 11:29) Chest, Single Ap (09/05/17 11:29) Ecg Monitoring (09/05/17 11:29) Bilateral Bp Monitoring (09/05/17 11:29) Iv Access Insert/Monitor (09/05/17 11:29) Oximetry (09/05/17 11:29) Oxygen Administration (09/05/17 11:29) Sodium Chloride 0.9% Flush (Ns Flush) (09/05/17 11:30) Electrocardiogram (09/05/17 ) Holter Monitor Recording (09/05/17 ) Lorazepam (Ativan) (09/05/17 14:15) Ed Discharge Order (09/05/17 15:26) Labs Laboratory Tests Test 09/05/17 11:57 White Blood Count 10.8 TH/MM3 Red Blood Count 4.49 MIL/MM3 Hemoglobin 12.2 GM/DL Hematocrit 37.3 % Mean Corpuscular Volume 83.1 FL Mean Corpuscular Hemoglobin 27.1 PG Mean Corpuscular Hemoglobin Concent 32.6 % Red Cell Distribution Width 16.5 % Platelet Count 275 TH/MM3 Mean Platelet Volume 7.9 FL Neutrophils (%) (Auto) 76.1 % Lymphocytes (%) (Auto) 15.0 % Monocytes (%) (Auto) 6.1 % Eosinophils (%) (Auto) 2.1 % Basophils (%) (Auto) 0.7 % Neutrophils # (Auto) 8.3 TH/MM3 Lymphocytes # (Auto) 1.6 TH/MM3 Monocytes # (Auto) 0.7 TH/MM3 Eosinophils # (Auto) 0.2 TH/MM3 Basophils # (Auto) 0.1 TH/MM3 CBC Comment DIFF FINAL Differential Comment Prothrombin Time 9.7 SEC Prothromb Time International Ratio 1.0 RATIO Activated Partial Thromboplast Time 24.3 SEC Blood Urea Nitrogen 26 MG/DL Creatinine 0.89 MG/DL Random Glucose 114 MG/DL Total Protein 7.0 GM/DL Albumin 3.4 GM/DL Calcium Level 9.0 MG/DL Magnesium Level 2.4 MG/DL Alkaline Phosphatase 92 U/L Aspartate Amino Transf (AST/SGOT) 10 U/L Alanine Aminotransferase (ALT/SGPT) 10 U/L Total Bilirubin 0.3 MG/DL Sodium Level 139 MEQ/L Potassium Level 4.3 MEQ/L Chloride Level 101 MEQ/L Carbon Dioxide Level 33.4 MEQ/L Anion Gap 5 MEQ/L Estimat Glomerular Filtration Rate 64 ML/MIN Total Creatine Kinase 29 U/L Troponin I LESS THAN 0.02 NG/ML B-Type Natriuretic Peptide 104 PG/ML MDM Medical Decision Making Medical Screen Exam Complete: Yes Emergency Medical Condition: Yes Medical Record Reviewed: Yes (Past history confirmed) Interpretation(s) CBC & BMP Diagram 09/05/17 11:57 Total Protein 7.0, Albumin 3.4, Calcium Level 9.0, Magnesium Level 2.4, Alkaline Phosphatase 92, Aspartate Amino Transf (AST/SGOT) 10 L, Alanine Aminotransferase (ALT/SGPT) 10, Total Bilirubin 0.3 Last 24 hours Impressions Chest X-Ray 09/05/17 1129 Signed Impressions: Service Date/Time: Tuesday, September 05, 2017 11:35 - CONCLUSION: Elevation left hemidiaphragm, unchanged. Sherman Monroe MD EKG is sinus rhythm on initial EKG and repeat EKG. Supraventricular premature complexes noted and no STEMI criteria Differential Diagnosis SVT, A. fib with RVR, anemia, electrolyte abnormality, COPD Narrative Course We will check blood work, chest x-ray, EKG and monitor ed workup no acute, will discuss with her senior reliability engineer patient wanting to stay, will discuss with her primary and dose with ativan Patient denies any new complaints, all questions answered. Patient knows that follow up is incumbent on them and to return to the emergency room immediately if new or worsening symptoms develop. Patient given strict return precautions, vitals reviewed and are normal and will follow up tommorrow with her holter Physician Communication Physician Communication dr hanson states patient can follow in the office tommorrow with a holter, can repeat ekg to make sure still in sinus dr correia thru a resident with his team states patient can go home Diagnosis Primary Impression: Palpitations Referrals: Malathi Silverman MD 1 day call to follow tommorrow Craig Correia MD 1 day call to follow tommorrow after senior reliability engineer Patient Instructions: General Instructions Additional Instructions: return as needed, use holter as directed Med/Other Pt SpecificInfo: No Change to Meds Disposition: 01 DISCHARGE HOME Condition: Stable Milady Bedolla MD Sep 05, 2017 12:47
[2017-09-05 12:53] LABS: ALBUMIN 3.4 GM/DL (3.4-5.0); AST (GOT) 10 U/L (15-37); BICARBONATE 33.4 MEQ/L (21.0-32.0); BLOOD UREA NITROGEN 26 MG/DL (7-18); CHLORIDE 101 MEQ/L (98-107); CREATININE 0.89 MG/DL (0.50-1.00); GLOMERULAR FILTRATION RATE 64 ML/MIN (>89); GLUCOSE,RANDOM 114 MG/DL (74-106); MAGNESIUM 2.4 MG/DL (1.5-2.5); SODIUM (NA) 139 MEQ/L (136-145)
[2017-09-05 12:59] LABS: ALKALINE PHOSPHATASE 92 U/L (45-117); ALT (GPT) 10 U/L (10-53); TOTAL BILIRUBIN ADULT 0.3 MG/DL (0.2-1.0); TROPONIN I LESS THAN 0.02 NG/ML (0.02-0.05)
[2017-09-05] MEDS ORDERED: LORazepam 1 MG TAB PO ONE (14:15)
[2017-09-05 14:23] VITALS: BP 116/66; PULSE 104; RESP 24; O2SAT 97
--- NOTE | 2017-09-06 23:04 | EKG ---
Date Performed: 09/05/2017 Time Performed: 14:02:43 PTAGE: 61 years EKG: SINUS TACHYCARDIA WITH SHORT MS INTERVAL WITH FREQUENT SUPRAVENTRICULAR PREMATURE COMPLEXES POSSIBLE RIGHT VENTRICULAR CONDUCTION DELAY NONSPECIFIC ST & T-WAVE ABNORMALITY ABNORMAL RHYTHM ECG PREVIOUS TRACING : 09/05/2017 11.33 DOCTOR: All Reilly Interpretating Date/Time 09/06/2017 23:02:36
--- NOTE | 2017-09-06 23:08 | EKG ---
Date Performed: 09/05/2017 Time Performed: 11:33:24 PTAGE: 61 years EKG: SINUS TACHYCARDIA WITH FREQUENT SUPRAVENTRICULAR PREMATURE COMPLEXES POSSIBLE RIGHT VENTRIC ULAR CONDUCTION DELAY NONSPECIFIC ST & T-WAVE ABNORMALITY ABNORMAL RHYTHM ECG PREVIOUS TRACING : 09/04/2017 13.20 DOCTOR: All Reilly Interpretating Date/Time 09/06/2017 23:05:48
--- NOTE | 2017-09-07 14:26 | HM ---
Date Performed: 09/05/2017 Time Performed: 15:42:00 HOOKUP DATE: 09/05/17 03:42:00 PM Sun ANALYSIS START TIME: 09/05/2017 3:47:00 PM ANALYSIS END TIME: 09/06/2017 3:51:00 PM PATIENT AGE: 61 PATIENT HEIGHT PATIENT WEIGHT DRUG LIST PATIENT DIAGNOSIS: CARDIAC/ RESPIRATORY TEST NARRATIVE: The patient's average heart rate was 82 BPM. Heart rates greater than 120 B PM were noted 16% of the time. No episodes of bradycardia were noted. No pauses exceeding 2.0 se conds were noted. 49 ventricular ectopics, which represented < 1% of the total beat count, were n oted. The highest ventricular ectopic frequency occurred from 04:00 PM to 05:00 PM Sun. During this time 18 VE(s) occurred. Ventricular ectopics were observed as 49 isolated beat(s) only. No couplet s or runs were noted. 750 supraventricular ectopics, which represented 1% of the total beat count , were noted. The highest supraventricular ectopic frequency occurred from 04:00 PM to 05:00 PM Sun. During this time 396 SVE(s) occurred. No episodes of ST depression (defined as -1.0 mm or more) were noted in channel 1. In channel 2, a single episode of ST depression (defined as -1.0 mm or mor e) occurred at 04:45:45 PM Sun with a maximum depression of -2.5 mm. Multiple episodes of ST depress ion (defined as -1.0 mm or more) were noted in channel 3. The maximum depression of -3.3 mm occurre d at 05:50:36 PM Sun. TEST INTERPRETATION: The patient was monitored for 24 hours. The minimum heart rate 56, maximum HR 185, average heart rate 82. Underlying rhythm was sinus with a short OH, possible WPW. There are m ultiple runs of atrial fibrillation with rapid ventricular response. CONCLUSION: Multiple runs of a trial fibrillation with rapid ventricular response. Heart rates up to 185 bpm. Underlying rhythm norm al Sinus rhythm with occasional PVCs. Abnormal EKG, cannot exclude WPW or other accessory pathway. Signed by : Bhaskar Shaver
== END 2017-09-05 17:12 | disposition home or self-care (01) ==
LOC: NEPC 11:16
DX: R00.2 Palpitations (principal); J44.9 Chronic obstructive pulmonary disease, unspecified; R00.0 Tachycardia, unspecified; R94.31 Abnormal electrocardiogram [ECG] [EKG]; I11.0 Hypertensive heart disease with heart failure; I50.9 Heart failure, unspecified; I48.91 Unspecified atrial fibrillation; M41.9 Scoliosis, unspecified; K21.9 Gastro-esophageal reflux disease without esophagitis
CPT/HCPCS: 71045; 80053; 82550; 83735; 83880; 84484; 85025; 85610; 85730; 93005; 93225; 93226; 99285

== ENCOUNTER 2017-09-20 19:33 | Emergency (ER) | payer MEDICARE, OTHER ==
[~2017-09-20 19:33] MED LIST changes: -GUAI10TA PO; -HOSP BED1; -PRED10PA2 PO; -PROM6.256 PO; -XOPEAER4 INH
[2017-09-20 19:37] VITALS: BP 120/65; PULSE 95; RESP 20; TEMP 99; O2SAT 98
[2017-09-20] MEDS ORDERED: SODIUM CHLORIDE 0.9% FLUSH 10 ML FLUSH IVF PRN (20:00)
--- NOTE | 2017-09-20 20:37 | RADRPT ---
EXAM DATE/TIME: 09/20/2017 20:09 [facility] COMPARISON: CHEST SINGLE AP, September 05, 2017, 11:35. INDICATIONS : Shortness of breath. MEDICAL HISTORY : Hypertension. Chronic obstructive pulmonary disease. Congestive heart failure. A-fib. SURGICAL HISTORY : None. ENCOUNTER: Initial ACUITY: 1 day PAIN SCORE: 0/10 LOCATION: Bilateral chest FINDINGS: The left diaphragm is elevated as previously. There is slight basilar parenchymal opacity which is al so grossly stable. Cardiac contours and vascularity are stable. CONCLUSION: No significant interval change Festus Reardon MD on September 20, 2017 at 20:35 Board Certified Radiologist. This report was verified electronically.
--- NOTE | 2017-09-20 21:26 | PD ---
HPI Chief Complaint: Cardiac Complaint Time Seen by Provider: 19:59 Travel History International Travel<30 days: No Contact w/Intl Traveler<30days: No Traveled to known affect area: No History of Present Illness HPI 62-year-old female with PMH of A. fib, COPD, CHF, O2 dependent at all times presents to the ED for evaluation of fluctuation and heart rate. Patient states that her heart rates been from the 30s to the 120s all week. She denies chest pain, shortness of breath, abdominal pain, nausea, vomiting. She states that her legs are "swollen worse than ever." She endorses dizziness that she relates to low heart rate. She denies dizziness on presentation. She refuses any CT evaluation, stating "just the thought of those things makes me have a panic attack." She states this problems been ongoing for a few weeks. She states that she wore a Holter monitor, saw her laser print operator, Dr. Silverman who changed her medications. PFSH Past Medical History Hx Anticoagulant Therapy: Yes Arthritis: Yes Atrial Fibrillation: Yes Anxiety: Yes Depression: No Heart Rhythm Problems: Yes Cardiac Catheterization: No Cardiovascular Problems: Yes High Cholesterol: No Congestive Heart Failure: Yes COPD: Yes Diabetes: No Diminished Hearing: No Endocrine: No Gastrointestinal Disorders: Yes GERD: Yes Genitourinary: No Heparin Induced Thrombocytopen: No Hypertension: Yes Immune Disorder: No Implanted Vascular Access Dvce: No Musculoskeletal: Yes (SCOLIOSIS) Neurologic: No Psychiatric: Yes Reproductive: No Respiratory: Yes Immunizations Current: Yes Myocardial Infarction: No Sickle Cell Disease: No Sleep Apnea: Yes Thyroid Disease: No Ulcer: No Menopausal: Yes : 1 Para: 1 Miscarriage: 0 : 0 Past Surgical History Coronary Artery Bypass Graft: No Social History Alcohol Use: No Tobacco Use: No Substance Use: No Allergies-Medications (Allergen,Severity, Reaction): Coded Allergies: acetaminophen (Verified Allergy, Severe, Tachycardia, swelling, 2/3/18) Swelling lips, throat hydrocodone (Verified Allergy, Severe, Tachycardia, swelling, 2/3/18) Swelling lips, throat ibuprofen (Verified Allergy, Severe, Swelling, 2/3/18) Swelling lips, throat morphine (Verified Allergy, Severe, Swelling, 2/3/18) Swelling lips , throat propoxyphene (Verified Allergy, Severe, Swelling, 218) Swelling, lips , throat albuterol (Verified Allergy, Intermediate, Tachycardia, 09/04/17) amoxicillin (Verified Allergy, Unknown, Atrial Fibrillation, 09/04/17) codeine (Verified Allergy, Unknown, 09/04/17) sertraline (Verified Allergy, Unknown, 09/04/17) pantoprazole (Verified Adverse Reaction, Unknown, Nausea/Vomiting, 09/04/17) Uncoded Allergies: INHALERS FOR COPD (ALL) (Allergy, Severe, PALPITATIONS/DIAPHORESIS, 11/16/13 ) VICOPROFEN (Allergy, Severe, Swelling, 11/16/13) "ANY PAIN PILLS" (Adverse Reaction, Severe, AFIB, 11/16/13) Reported Meds & Prescriptions Reported Meds & Active Scripts Active Azithromycin 500 Mg Tab 500 Mg PO DAILY Ipratropium Neb (Ipratropium [place]) 0.5 Mg/2.5 Ml Amp 0.5 Mg NEB Q6HR NEB PRN Guaiatussin AC Liquid (Codeine Phosphate/Guaifenesin) 10 Mg-100 Mg/5 Ml (5 Ml) Liquid 5 Ml PO Q6HR PRN Symbicort Inh (Budesonide/Formoterol Fumarate) 80-4.5 Mcg/Act Aero 1 Puff INH Q12HR Lorazepam 1 Mg Tab 1 Mg PO BID PRN Enalapril (Enalapril Maleate) 20 Mg Tab 20 Mg PO BID Reported Hydralazine HCl 10 Mg Tablet 10 Mg PO BID Lasix (Furosemide) 20 Mg Tab 20 Mg PO DAILY Ranitidine (Ranitidine HCl) 150 Mg Tab 150 Mg PO BID Flonase Nasal [place] (Fluticasone Nasal [place]) 50 Mcg/Act [place] 1 [place] EACH NARE BID PRN Sotalol (Sotalol HCl) 120 Mg Tab 120 Mg PO BID Aspirin 325 Mg Tab 325 Mg PO QID PRN Review of Systems Except as stated in HPI: all other systems reviewed are Neg Physical Exam Narrative GENERAL: Well-nourished, well-developed obese white female in no acute distress. SKIN: Focused skin assessment warm/dry. HEAD: Normocephalic. EYES: No scleral icterus. No injection or drainage. NECK: Supple, trachea midline. No JVD or lymphadenopathy. CARDIOVASCULAR: Irregularly irregular rate and rhythm without murmurs, gallops, or rubs. RESPIRATORY: Breath sounds clear and equal bilaterally. No accessory muscle use. GASTROINTESTINAL: Abdomen soft, non-tender, nondistended. Active bowel sounds. MUSCULOSKELETAL: No cyanosis. 1+ pitting edema to the mid monsivais. NEUROLOGICAL: Awake and alert. Cranial nerves II through XII intact. Motor and sensory grossly within normal limits. Five out of 5 muscle strength in all muscle groups. Normal speech. BACK: Nontender without obvious deformity. No CVA tenderness. Data Data Last Documented VS Vital Signs Date Time Temp Pulse Resp B/P (MAP) Pulse Ox O2 Delivery O2 Flow Rate FiO2 09/21/17 01:00 60 20 149/70 (96) 95 2.00 09/20/17 19:37 99.0 Orders Orders Electrocardiogram (09/20/17 19:59) Prothrombin Time / Inr (Pt) (09/20/17 19:59) Act Partial Throm Time (Ptt) (09/20/17 19:59) Complete Blood Count With Diff (09/20/17 19:59) Comprehensive Metabolic Panel (09/20/17 19:59) Creatine Kinase (Cpk) (09/20/17 19:59) Troponin I (09/20/17 19:59) Urinalysis - C+S If Indicated (09/20/17 19:59) Chest, Single Ap (09/20/17 19:59) Ecg Monitoring (09/20/17 19:59) Iv Access Insert/Monitor (09/20/17 19:59) Oximetry (09/20/17 19:59) Sodium Chloride 0.9% Flush (Ns Flush) (09/20/17 20:00) B-Type Natriuretic Peptide (09/20/17 20:22) Ed Discharge Order (09/21/17 01:33) Labs Laboratory Tests Test 09/20/17 22:30 09/21/17 00:30 White Blood Count 9.7 TH/MM3 Red Blood Count 4.44 MIL/MM3 Hemoglobin 12.3 GM/DL Hematocrit 36.9 % Mean Corpuscular Volume 83.1 FL Mean Corpuscular Hemoglobin 27.7 PG Mean Corpuscular Hemoglobin Concent 33.4 % Red Cell Distribution Width 16.2 % Platelet Count 279 TH/MM3 Mean Platelet Volume 7.3 FL Neutrophils (%) (Auto) 70.8 % Lymphocytes (%) (Auto) 17.9 % Monocytes (%) (Auto) 6.5 % Eosinophils (%) (Auto) 4.3 % Basophils (%) (Auto) 0.5 % Neutrophils # (Auto) 6.9 TH/MM3 Lymphocytes # (Auto) 1.7 TH/MM3 Monocytes # (Auto) 0.6 TH/MM3 Eosinophils # (Auto) 0.4 TH/MM3 Basophils # (Auto) 0.0 TH/MM3 CBC Comment AUTO DIFF Differential Total Cells Counted 100 Neutrophils % (Manual) 76 % Band Neutrophils % 7 % Lymphocytes % 11 % Monocytes % 3 % Eosinophils % 3 % Neutrophils # (Manual) 8.1 TH/MM3 Differential Comment FINAL DIFF MANUAL Toxic Granulation 1+ Platelet Estimate NORMAL Platelet Morphology Comment NORMAL Prothrombin Time 9.8 SEC Prothromb Time International Ratio 1.0 RATIO Activated Partial Thromboplast Time 23.6 SEC Blood Urea Nitrogen 15 MG/DL Creatinine 0.76 MG/DL Random Glucose 99 MG/DL Total Protein 7.2 GM/DL Albumin 3.5 GM/DL Calcium Level 8.8 MG/DL Alkaline Phosphatase 87 U/L Aspartate Amino Transf (AST/SGOT) 13 U/L Alanine Aminotransferase (ALT/SGPT) 18 U/L Total Bilirubin 0.3 MG/DL Sodium Level 141 MEQ/L Potassium Level 4.1 MEQ/L Chloride Level 101 MEQ/L Carbon Dioxide Level 36.7 MEQ/L Anion Gap 3 MEQ/L Estimat Glomerular Filtration Rate 77 ML/MIN Total Creatine Kinase 27 U/L Troponin I LESS THAN 0.02 NG/ML B-Type Natriuretic Peptide 108 PG/ML Urine Color YELLOW Urine Turbidity CLEAR Urine pH 5.5 Urine Specific [place] 1.019 Urine Protein NEG mg/dL Urine Glucose (UA) NEG mg/dL Urine Ketones NEG mg/dL Urine Occult Blood NEG Urine Nitrite NEG Urine Bilirubin NEG Urine Urobilinogen LESS THAN 2.0 MG/DL Urine Leukocyte Esterase SMALL Urine RBC 2 /hpf Urine WBC 4 /hpf Urine Squamous Epithelial Cells 1 /hpf Urine Bacteria RARE /hpf Urine Mucus FEW /lpf Microscopic Urinalysis Comment CULT NOT INDICATED MDM Medical Decision Making Medical Screen Exam Complete: Yes Emergency Medical Condition: Yes Differential Diagnosis Dysrhythmia versus CHF versus COPD versus HTN versus other Narrative Course 62-year-old female with PMH of A. fib, COPD, CHF, O2 dependent at all times presents to the ED for evaluation of fluctuating heart rate. Patient states that her heart rates been from the 30s to the 120s all week. She denies chest pain, shortness of breath, abdominal pain, nausea, vomiting. She states that her legs are "swollen worse than ever." She endorses dizziness that she relates to low heart rate. She states that she wore a Holter monitor, saw her laser print operator, Dr. Silverman who changed her medications. Vitals reviewed. On exam this is an obese white female in no acute distress. Heart rate is irregularly irregular. Lungs sounds clear bilaterally. 1+ edema to the shins bilaterally. Cardiac workup ordered and pending. The patient signed out to Dr. Chew at end of shift. Please see her note for disposition. Kym Ahmadi Sep 20, 2017 21:26
[2017-09-20 22:00] VITALS: BP 136/71; PULSE 63; RESP 20; O2SAT 98
[2017-09-20 22:40] LABS: AUTOMATED NEUTROPHIL # 6.9 TH/MM3 (1.8-7.7); BASOPHIL % 0.5 % (0.0-2.0); EOSINOPHIL # 0.4 TH/MM3 (0-0.4); EOSINOPHIL % 4.3 % (0.0-4.0); HEMATOCRIT 36.9 % (35.0-46.0); HEMOGLOBIN 12.3 GM/DL (11.6-15.3); LYMPH % 17.9 % (9.0-44.0); LYMPHOCYTE # 1.7 TH/MM3 (1.0-4.8); MEAN CELL VOLUME 83.1 FL (80.0-100.0); MEAN CORPUSCULAR HEMOGLOBIN 27.7 PG (27.0-34.0); MEAN CORPUSCULAR HGB CONC 33.4 % (32.0-36.0); MEAN PLATELET VOLUME 7.3 FL (7.0-11.0); MONO % 6.5 % (0.0-8.0); MONOCYTE # 0.6 TH/MM3 (0-0.9); NEUT % 70.8 % (16.0-70.0); PLATELET COUNT 279 TH/MM3 (150-450); RED BLOOD COUNT 4.44 MIL/MM3 (4.00-5.30); RED CELL DISTRIBUTION WIDTH 16.2 % (11.6-17.2); WHITE BLOOD COUNT 9.7 TH/MM3 (4.0-11.0)
[2017-09-20 22:51] LABS: PROTHROMBIN TIME - PATIENT 9.8 SEC (9.8-11.6)
--- NOTE | 2017-09-20 22:57 | PD ---
Physical Exam Narrative General: The patient is a well-developed well-nourished female in no acute distress. Head and Neck exam: Head is normocephalic atraumatic. Eyes: EOMI, pupils are equal round and reactive to light. Nose: Midline septum with pink mucous membranes Mouth: Dentition unremarkable. Moist mucus membranes. Posterior oropharynx is not erythematous. No tonsillar hypertrophy. Uvula midline. Airway patent. Neck: No palpable lymphadenopathy. No nuchal rigidity. No thyromegaly. Cardiovascular: Regular rate and rhythm without murmurs, gallops, or rubs. Lungs: Clear to auscultation bilaterally. No wheezes, rhonchi, or rales. Abdomen: Soft, without tenderness to palpation in all 4 quadrants of the abdomen. No guarding, rebound, or rigidity. Normal bowel sounds are audible. No tenderness on palpation of McBurney's point. Extremities: No clubbing or cyanosis. The patient has trace edema bilateral lower extremities. No calf tenderness on palpation. Neurologic Exam: Grossly nonfocal. Skin Exam: No rash noted. Intact skin that is warm and dry. Data Data Last Documented VS Vital Signs Date Time Temp Pulse Resp B/P (MAP) Pulse Ox O2 Delivery O2 Flow Rate FiO2 09/21/17 01:00 60 20 149/70 (96) 95 2.00 09/20/17 19:37 99.0 Orders Orders Electrocardiogram (09/20/17 19:59) Prothrombin Time / Inr (Pt) (09/20/17 19:59) Act Partial Throm Time (Ptt) (09/20/17 19:59) Complete Blood Count With Diff (09/20/17 19:59) Comprehensive Metabolic Panel (09/20/17 19:59) Creatine Kinase (Cpk) (09/20/17 19:59) Troponin I (09/20/17 19:59) Urinalysis - C+S If Indicated (09/20/17 19:59) Chest, Single Ap (09/20/17 19:59) Ecg Monitoring (09/20/17 19:59) Iv Access Insert/Monitor (09/20/17 19:59) Oximetry (09/20/17 19:59) Sodium Chloride 0.9% Flush (Ns Flush) (09/20/17 20:00) B-Type Natriuretic Peptide (09/20/17 20:22) Labs Laboratory Tests Test 09/20/17 22:30 09/21/17 00:30 White Blood Count 9.7 TH/MM3 Red Blood Count 4.44 MIL/MM3 Hemoglobin 12.3 GM/DL Hematocrit 36.9 % Mean Corpuscular Volume 83.1 FL Mean Corpuscular Hemoglobin 27.7 PG Mean Corpuscular Hemoglobin Concent 33.4 % Red Cell Distribution Width 16.2 % Platelet Count 279 TH/MM3 Mean Platelet Volume 7.3 FL Neutrophils (%) (Auto) 70.8 % Lymphocytes (%) (Auto) 17.9 % Monocytes (%) (Auto) 6.5 % Eosinophils (%) (Auto) 4.3 % Basophils (%) (Auto) 0.5 % Neutrophils # (Auto) 6.9 TH/MM3 Lymphocytes # (Auto) 1.7 TH/MM3 Monocytes # (Auto) 0.6 TH/MM3 Eosinophils # (Auto) 0.4 TH/MM3 Basophils # (Auto) 0.0 TH/MM3 CBC Comment AUTO DIFF Differential Total Cells Counted 100 Neutrophils % (Manual) 76 % Band Neutrophils % 7 % Lymphocytes % 11 % Monocytes % 3 % Eosinophils % 3 % Neutrophils # (Manual) 8.1 TH/MM3 Differential Comment FINAL DIFF MANUAL Toxic Granulation 1+ Platelet Estimate NORMAL Platelet Morphology Comment NORMAL Prothrombin Time 9.8 SEC Prothromb Time International Ratio 1.0 RATIO Activated Partial Thromboplast Time 23.6 SEC Blood Urea Nitrogen 15 MG/DL Creatinine 0.76 MG/DL Random Glucose 99 MG/DL Total Protein 7.2 GM/DL Albumin 3.5 GM/DL Calcium Level 8.8 MG/DL Alkaline Phosphatase 87 U/L Aspartate Amino Transf (AST/SGOT) 13 U/L Alanine Aminotransferase (ALT/SGPT) 18 U/L Total Bilirubin 0.3 MG/DL Sodium Level 141 MEQ/L Potassium Level 4.1 MEQ/L Chloride Level 101 MEQ/L Carbon Dioxide Level 36.7 MEQ/L Anion Gap 3 MEQ/L Estimat Glomerular Filtration Rate 77 ML/MIN Total Creatine Kinase 27 U/L Troponin I LESS THAN 0.02 NG/ML B-Type Natriuretic Peptide 108 PG/ML Urine Color YELLOW Urine Turbidity CLEAR Urine pH 5.5 Urine Specific [place] 1.019 Urine Protein NEG mg/dL Urine Glucose (UA) NEG mg/dL Urine Ketones NEG mg/dL Urine Occult Blood NEG Urine Nitrite NEG Urine Bilirubin NEG Urine Urobilinogen LESS THAN 2.0 MG/DL Urine Leukocyte Esterase SMALL Urine RBC 2 /hpf Urine WBC 4 /hpf Urine Squamous Epithelial Cells 1 /hpf Urine Bacteria RARE /hpf Urine Mucus FEW /lpf Microscopic Urinalysis Comment CULT NOT INDICATED MDM Medical Record Reviewed: Yes Supervised Visit with CHARLA: No Interpretation(s) Last Impressions Chest X-Ray 09/20/171958 Signed Impressions: Service Date/Time: Wednesday, September 20, 2017 20:09 - CONCLUSION: No significant interval change Festus Reardon MD Narrative Course During the course of the patient's emergency department visit, the patient's history, examination, and differential diagnosis were reviewed with the patient. The patient was placed on a manager philosophy with oximetry and frequent blood pressure monitoring. The patient had IV access obtained and blood work sent for analysis. The patient's case was checked out to me by Kym. Please see the patient's complete history and physical done by her. The patient has laboratory studies that were pending at the conclusion of Kym' s shift. The patient's laboratory studies were reviewed and remarkable for a white count of 9.7, hemoglobin 12.3, platelets 279 with 70.8 neutrophils, lymphocytes 17.9, monocytes 6.5, eosinophils 4.3. CMP is remarkable for CO2 of 36.7, anion gap 3 , GFR 77, AST 13, cardiac enzymes within normal limits, BNP 108, PT 9.8, PTT 23.6, urinalysis shows small leukocyte esterase, 2 RBCs, WBCs 4, rare bacteria. Radiology studies were reviewed and remarkable for a chest x-ray that shows no significant change or acute cardiopulmonary disease. During the patient's emergency department visit, the patient was observed on telemetry. The patient reports that she did take metoprolol 12.5 mg earlier today. The patient's heart rate and blood pressure have remained stable during her evaluation. I recommended that she continue on her medication regimen as previously prescribed by Dr. Silverman. She was instructed regarding the importance of following up closely with her home appliance installer. She reports that she has an appointment scheduled for tomorrow for follow-up. The patient reports noncompliance with her sleep apnea mask. The patient's lower extremity edema could be related to cor pulmonale as her BMP is basically within normal limits. I encouraged her to start wearing her mask. The patient is resting comfortably and feels better, is alert and in no distress. The patient's results and examination findings were discussed with the patient. The repeat examination is unremarkable and benign. The history, exam, diagnostic testing, and current condition do not suggest any significant pathology to warrant further testing, continued ED treatment, admission, or surgical evaluation at this point. The vital signs have been stable. The patient does not have uncontrollable pain, intractable vomiting, or other significant symptoms. The patient's condition is stable and appropriate for discharge. The patient will pursue further outpatient evaluation with a primary care physician or other designated or consulting physician as indicated in the discharge instructions. The patient expressed understanding and was agreeable with this plan. Diagnosis Primary Impression: Palpitations Referrals: Malathi Silverman MD 1 day Patient Instructions: General Instructions, Heart Palpitations (ED) Med/Other Pt SpecificInfo: No Change to Meds Disposition: 01 DISCHARGE HOME Condition: Stable Eleni Chew MD Sep 20, 2017 22:57
[2017-09-20 23:00] VITALS: BP 142/65; PULSE 62; RESP 20; O2SAT 98
[2017-09-20 23:00] LABS: ALBUMIN 3.5 GM/DL (3.4-5.0); ALT (GPT) 18 U/L (10-53); AST (GOT) 13 U/L (15-37); BICARBONATE 36.7 MEQ/L (21.0-32.0); BLOOD UREA NITROGEN 15 MG/DL (7-18); CALCIUM 8.8 MG/DL (8.5-10.1); CHLORIDE 101 MEQ/L (98-107); CREATININE 0.76 MG/DL (0.50-1.00); GLOMERULAR FILTRATION RATE 77 ML/MIN (>89); GLUCOSE,RANDOM 99 MG/DL (74-106); SODIUM (NA) 141 MEQ/L (136-145)
[2017-09-20 23:03] LABS: ALKALINE PHOSPHATASE 87 U/L (45-117); TOTAL BILIRUBIN ADULT 0.3 MG/DL (0.2-1.0); TOTAL PROTEIN 7.2 GM/DL (6.4-8.2); TROPONIN I LESS THAN 0.02 NG/ML (0.02-0.05)
[2017-09-20 23:50] LABS: BANDS 7 % (0-6); LYMPHOCYTES 11 % (9-44); MONOCYTES 3 % (0-8); NEUTROPHIL # MANUAL DIFF 8.1 TH/MM3 (1.8-7.7); POLYS (SEG NEUTROPHILS) 76 % (16-70); TOXIC GRANULATION 1+ (NORMAL)
[2017-09-21] VITALS: PULSE 62; O2SAT 95
[2017-09-21 00:52] LABS: BACTERIA, URINE RARE /hpf; BILIRUBIN, URINE NEG (NEG); BLOOD, URINE NEG (NEG); GLUCOSE,URINE NEG (NEG); KETONE, URINE NEG (NEG); MUCUS URINE FEW /lpf (OCC); NITRITE,URINE NEG (NEG); PH, URINE 5.5 (5.0-8.5); SQUAMOUS EPITHELIAL CELL URINE 1 /hpf (0-5); URINE COLOR YELLOW (YELLW/STRAW); URINE LEUKOCYTE ESTERASE SMALL (NEG)
[2017-09-21 01:00] VITALS: BP 149/70; PULSE 60; RESP 20; O2SAT 95
--- NOTE | 2017-09-21 20:34 | EKG ---
Date Performed: 09/20/2017 Time Performed: 22:40:20 PTAGE: 62 years EKG: NORMAL Sinus rhythm NONSPECIFIC ST T-WAVE CHANGES BORDERLINE ECG PREVIOUS TRACING : 09/05/2017 14.02 WHEN COMPARED TO PRIOR TRACING THE PATIENT IS NO LONGER TAC HYCARDIC. DOCTOR: Malathi Silverman Interpretating Date/Time 09/21/2017 20:33:52
== END 2017-09-21 01:55 | disposition home or self-care (01) ==
LOC: NEPE 19:33
DX: R00.2 Palpitations (principal); R42 Dizziness and giddiness; M79.89 Other specified soft tissue disorders; I11.0 Hypertensive heart disease with heart failure; J44.9 Chronic obstructive pulmonary disease, unspecified; I48.91 Unspecified atrial fibrillation; R94.31 Abnormal electrocardiogram [ECG] [EKG]; Z79.01 Long term (current) use of anticoagulants
CPT/HCPCS: 71045; 80053; 81001; 82550; 83880; 84484; 85007; 85027; 85610; 85730; 93005

== ENCOUNTER 2017-12-01 00:56 | Observation (INO) | payer MEDICARE, OTHER ==
[~2017-12-01] VITALS: Ht 167.6 cm; Wt 135.0 kg
[2017-12-01 00:59] VITALS: BP 200/94; PULSE 63; RESP 18; TEMP 98.8; O2SAT 99
[2017-12-01 01:37] LABS: AUTOMATED NEUTROPHIL # 8.5 TH/MM3 (1.8-7.7); BASOPHIL # 0.1 TH/MM3 (0-0.2); BASOPHIL % 0.6 % (0.0-2.0); EOSINOPHIL # 0.4 TH/MM3 (0-0.4); EOSINOPHIL % 3.4 % (0.0-4.0); HEMATOCRIT 37.6 % (35.0-46.0); HEMOGLOBIN 12.2 GM/DL (11.6-15.3); LYMPHOCYTE # 1.7 TH/MM3 (1.0-4.8); MEAN CELL VOLUME 82.9 FL (80.0-100.0); MEAN CORPUSCULAR HGB CONC 32.5 % (32.0-36.0); MEAN PLATELET VOLUME 7.7 FL (7.0-11.0); MONO % 6.3 % (0.0-8.0); MONOCYTE # 0.7 TH/MM3 (0-0.9); NEUT % 74.7 % (16.0-70.0); PLATELET COUNT 265 TH/MM3 (150-450); RED BLOOD COUNT 4.53 MIL/MM3 (4.00-5.30); RED CELL DISTRIBUTION WIDTH 14.5 % (11.6-17.2); WHITE BLOOD COUNT 11.4 TH/MM3 (4.0-11.0)
[2017-12-01 01:39] LABS: BILIRUBIN, URINE NEG (NEG); BLOOD, URINE NEG (NEG); GLUCOSE,URINE NEG (NEG); KETONE, URINE NEG (NEG); NITRITE,URINE NEG (NEG); SQUAMOUS EPITHELIAL CELL URINE 1 /hpf (0-5); TRANSITIONAL EPI CELLS, URINE <1 /hpf; URINE COLOR LIGHT-YELLOW (YELLW/STRAW); URINE LEUKOCYTE ESTERASE NEG (NEG)
[2017-12-01 01:52] LABS: BICARBONATE 36.1 MEQ/L (21.0-32.0); CREATININE 0.83 MG/DL (0.50-1.00)
--- NOTE | 2017-12-01 02:16 | PD ---
HPI Chief Complaint: Flank/Kidney Pain Time Seen by Provider: 01:40 Travel History International Travel<30 days: No Contact w/Intl Traveler<30days: No Traveled to known affect area: No History of Present Illness HPI Patient presents to the emergency department complaint of left flank pain that radiates to left lower quadrant and suprapubic area. Patient states that the symptoms are new. She denies fever but reports chills, nauseated but denies vomiting. She also denies dysuria, vaginal bleeding, or hematuria. Last sexual intercourse was approximately 16 years ago. States that she wears pads for urinary incontinence and noticed gabbi color in the past few days ago. PFSH Past Medical History Hx Anticoagulant Therapy: Yes Arthritis: Yes Atrial Fibrillation: Yes Anxiety: Yes Depression: No Heart Rhythm Problems: Yes Cardiac Catheterization: No Cardiovascular Problems: Yes High Cholesterol: No Congestive Heart Failure: Yes COPD: Yes Diabetes: No Diminished Hearing: No Endocrine: No Gastrointestinal Disorders: Yes GERD: Yes Genitourinary: No Heparin Induced Thrombocytopen: No Hypertension: Yes Immune Disorder: No Implanted Vascular Access Dvce: No Musculoskeletal: Yes (SCOLIOSIS) Neurologic: No Psychiatric: Yes Reproductive: No Respiratory: Yes Immunizations Current: Yes Myocardial Infarction: No Sickle Cell Disease: No Sleep Apnea: Yes Thyroid Disease: No Ulcer: No Tetanus Vaccination: < 5 Years Influenza Vaccination: Yes Menopausal: Yes : 1 Para: 1 Miscarriage: 0 : 0 Past Surgical History Coronary Artery Bypass Graft: No Social History Alcohol Use: No Tobacco Use: No Substance Use: No Allergies-Medications (Allergen,Severity, Reaction): Coded Allergies: acetaminophen (Verified Allergy, Severe, Tachycardia, swelling, 12/01/17) Swelling lips, throat hydrocodone (Verified Allergy, Severe, Tachycardia, swelling, 12/01/17) Swelling lips, throat ibuprofen (Verified Allergy, Severe, Swelling, 12/01/17) Swelling lips, throat morphine (Verified Allergy, Severe, Swelling, 12/01/17) Swelling lips , throat propoxyphene (Verified Allergy, Severe, Swelling, 12/01/17) Swelling, lips , throat albuterol (Verified Allergy, Intermediate, Tachycardia, 12/01/17) amoxicillin (Verified Allergy, Unknown, Atrial Fibrillation, 12/01/17) codeine (Verified Allergy, Unknown, 12/01/17) sertraline (Verified Allergy, Unknown, 12/01/17) pantoprazole (Verified Adverse Reaction, Unknown, Nausea/Vomiting, 12/01/17) Uncoded Allergies: INHALERS FOR COPD (ALL) (Allergy, Severe, PALPITATIONS/DIAPHORESIS, 11/16/13 ) VICOPROFEN (Allergy, Severe, Swelling, 11/16/13) "ANY PAIN PILLS" (Adverse Reaction, Severe, AFIB, 11/16/13) Reported Meds & Prescriptions Reported Meds & Active Scripts Active Azithromycin 500 Mg Tab 500 Mg PO DAILY Ipratropium Neb (Ipratropium [place]) 0.5 Mg/2.5 Ml Amp 0.5 Mg NEB Q6HR NEB PRN Guaiatussin AC Liquid (Codeine Phosphate/Guaifenesin) 10 Mg-100 Mg/5 Ml (5 Ml) Liquid 5 Ml PO Q6HR PRN Symbicort Inh (Budesonide/Formoterol Fumarate) 80-4.5 Mcg/Act Aero 1 Puff INH Q12HR Lorazepam 1 Mg Tab 1 Mg PO BID PRN Enalapril (Enalapril Maleate) 20 Mg Tab 20 Mg PO BID Reported Hydralazine HCl 10 Mg Tablet 10 Mg PO BID Lasix (Furosemide) 20 Mg Tab 20 Mg PO DAILY Ranitidine (Ranitidine HCl) 150 Mg Tab 150 Mg PO BID Flonase Nasal [place] (Fluticasone Nasal [place]) 50 Mcg/Act [place] 1 [place] EACH NARE BID PRN Sotalol (Sotalol HCl) 120 Mg Tab 120 Mg PO BID Aspirin 325 Mg Tab 325 Mg PO QID PRN Review of Systems Except as stated in HPI: all other systems reviewed are Neg Physical Exam Narrative GENERAL: No acute distress. SKIN: Focused skin assessment warm/dry. HEAD: Atraumatic. Normocephalic. EYES: Pupils equal and round. No scleral icterus. No injection or drainage. ENT: No nasal bleeding or discharge. Mucous membranes pink and moist. NECK: Trachea midline. No JVD. CARDIOVASCULAR: Regular rate and rhythm. No murmur appreciated. RESPIRATORY: No accessory muscle use. Clear to auscultation. Breath sounds equal bilaterally. GASTROINTESTINAL: Abdomen soft, non-tender, morbidly obese. Left CVA tenderness and suprapubic tenderness MUSCULOSKELETAL: No obvious deformities. No clubbing. No cyanosis. No edema. NEUROLOGICAL: Awake and alert. No obvious cranial nerve deficits. Motor grossly within normal limits. Normal speech. PSYCHIATRIC: Appropriate mood and affect; insight and judgment normal. : + milky white D/C, No CMT/adnexa tenderness, + bleeding Data Data Last Documented VS Vital Signs Date Time Temp Pulse Resp B/P (MAP) Pulse Ox O2 Delivery O2 Flow Rate FiO2 12/01/17 04:35 58 16 187/77 (113) 98 Nasal Cannula 2.00 12/01/17 00:59 98.8 Orders Orders Complete Blood Count With Diff (12/01/17 01:14) Basic Metabolic Panel (Bmp) (12/01/17 01:14) Urinalysis - C+S If Indicated (12/01/17 01:14) Ct Abd/Pel W/O Iv Contrast (12/01/17 01:57) Lorazepam Inj (Ativan Inj) (12/01/17 02:30) Gc And Chlamydia Pcr (12/01/17 03:25) Wet Prep Profile (12/01/17 03:25) Hydralazine (Apresoline) (12/01/17 04:00) Enalapril (Vasotec) (12/01/17 04:00) Electrocardiogram (12/01/17 05:02) Troponin I (12/01/17 05:02) Chest, Single Ap (12/01/17 05:02) B-Type Natriuretic Peptide (12/01/17 05:02) Valacyclovir (Valtrex) (12/01/17 05:45) Admit Order (Ed Use Only) (12/01/17 05:38) Labs Laboratory Tests Test 12/01/17 01:25 12/01/17 03:25 White Blood Count 11.4 TH/MM3 Red Blood Count 4.53 MIL/MM3 Hemoglobin 12.2 GM/DL Hematocrit 37.6 % Mean Corpuscular Volume 82.9 FL Mean Corpuscular Hemoglobin 27.0 PG Mean Corpuscular Hemoglobin Concent 32.5 % Red Cell Distribution Width 14.5 % Platelet Count 265 TH/MM3 Mean Platelet Volume 7.7 FL Neutrophils (%) (Auto) 74.7 % Lymphocytes (%) (Auto) 15.0 % Monocytes (%) (Auto) 6.3 % Eosinophils (%) (Auto) 3.4 % Basophils (%) (Auto) 0.6 % Neutrophils # (Auto) 8.5 TH/MM3 Lymphocytes # (Auto) 1.7 TH/MM3 Monocytes # (Auto) 0.7 TH/MM3 Eosinophils # (Auto) 0.4 TH/MM3 Basophils # (Auto) 0.1 TH/MM3 CBC Comment DIFF FINAL Differential Comment Urine Color LIGHT-YELLOW Urine Turbidity CLEAR Urine pH 6.0 Urine Specific [place] 1.012 Urine Protein NEG mg/dL Urine Glucose (UA) NEG mg/dL Urine Ketones NEG mg/dL Urine Occult Blood NEG Urine Nitrite NEG Urine Bilirubin NEG Urine Urobilinogen LESS THAN 2.0 MG/DL Urine Leukocyte Esterase NEG Urine RBC LESS THAN 1 /hpf Urine WBC 1 /hpf Urine Squamous Epithelial Cells 1 /hpf Urine Transitional Epithelial Cells <1 /hpf Microscopic Urinalysis Comment CULT NOT INDICATED Blood Urea Nitrogen 14 MG/DL Creatinine 0.83 MG/DL Random Glucose 99 MG/DL Calcium Level 9.0 MG/DL Sodium Level 142 MEQ/L Potassium Level 3.9 MEQ/L Chloride Level 102 MEQ/L Carbon Dioxide Level 36.1 MEQ/L Anion Gap 4 MEQ/L Estimat Glomerular Filtration Rate 70 ML/MIN Troponin I LESS THAN 0.02 NG/ML B-Type Natriuretic Peptide 129 PG/ML Clue Cells (Wet Prep) NONE SEEN Vaginal Trichomonas (Wet Prep) NONE SEEN Vaginal Yeast (Wet Prep) NONE SEEN Chlamydia trachomatis DNA (PCR) NOT DETECTED Neisseria gonorrhoeae DNA (PCR) NOT DETECTED MDM Medical Decision Making Medical Screen Exam Complete: Yes Emergency Medical Condition: Yes Interpretation(s) ECG: SR, rate 60, poor quality ecg, but no obvious ST elevation Labs: BNP and cbc slightly increased, wet prep neg; gc/chl pending, CXR: FINDINGS: A single view of the chest demonstrates stable elevation of left hemidiaphragm with minimal left basilar atelectasis. Lungs otherwise clear. Heart size is normal. Dextroscoliosis of the thoracolumbar spine with associated degenerative changes. CONCLUSION: Stable chest with elevation of the left hemidiaphragm and mild left basilar atelectasis. FINDINGS: LOWER LUNGS: The visualized lower lungs are clear. LIVER: Punctate, now with a calcification in the right hepatic lobe. Otherwise, homogeneous density without mass lesion or intrahepatic biliary duct dilatation. There is no dilation of the biliary tree. No calcified gallstones. SPLEEN: Normal size without lesion. PANCREAS: Within normal limits. KIDNEYS: Normal in size and shape. There is no mass, stone, or hydronephrosis. ADRENAL GLANDS: Within normal limits. VASCULAR: There is no aortic aneurysm. BOWEL/MESENTERY: There is some diverticular disease in the descending and sigmoid colon without diverticulitis. ABDOMINAL WALL: Within normal limits. RETROPERITONEUM: There is no lymphadenopathy. BLADDER: No wall thickening or mass. REPRODUCTIVE: Patient reports a history of hysterectomy but the uterus is still present.. INGUINAL: There is no lymphadenopathy or hernia. MUSCULOSKELETAL: Within normal limits for patient age. CONCLUSION: 1. Diverticular disease of the descending and sigmoid colon without diverticulitis. 2. No renal or ureteral calculi. 3. Patient reports history of hysterectomy but the uterus is still present. Cannot definitively identify the appendix, however. 4. Benign-appearing dystrophic or granulomatous type calcification in the right hepatic lobe Differential Diagnosis UTI, kidney stone, AAA, muscular skeletal back pain, daycare manager abnormality (cancer, infectious) Narrative Course Patient presents to emergency department complaining of left flank pain radiating to left lower quadrant and suprapubic area. Will check UA and culture if indicated, CBC, and chemistry. If negative we will get CT abdomen pelvis without contrast. 0333: Pelvic shows some vaginal bleeding and milky white d/c. Patient advises that she had her last pap smear a few years ago and was advised that it was normal but also had some blood present (?). Awaiting genital swab results and have advised patient to followup with PCP or daycare manager for pap smear and ultrasound. 0353: Patient given her morning dose of enalapril 20mg po and hydralazine 10mg po. 0514: BP 189/86. Patient has clusters of vesicles on L side lower mid axillary and back in the area of pain. Possible zoster. Added on CXR, troponin, BNP, valtrex 1 gram po. Patient states taht she has had shingles in the past treated with valtrex. 0540: As patient's prior documented sys BPs normally 116-140s and she has a much higher BP than this despite home BP meds, will admit to resident/[facility] for further eval and management. Of note, Dr. Correia is her doctor. Diagnosis Primary Impression: HTN (hypertension) Qualified Codes: I10 - Essential (primary) hypertension Additional Impression: Zoster Qualified Codes: B02.9 - Zoster without complications Admitting Information Admitting Physician Requests: Admit Condition: Stable Vandana Corona MD December 01, 2017 02:16
[2017-12-01] MEDS ORDERED: LORazepam 2 MG/ML VIAL IV PUSH ONE (02:30)
--- NOTE | 2017-12-01 02:59 | RADRPT ---
EXAM DATE/TIME: 12/01/2017 02:13 [facility] COMPARISON: No previous studies available for comparison. INDICATIONS : Left flank pain. ORAL CONTRAST: No oral contrast ingested. RADIATION DOSE: 32.91 CTDIvol (mGy) ; Patient body habitus MEDICAL HISTORY : Hypertension. Chronic obstructive pulmonary disease. Gastroesophageal reflux disease. SURGICAL HISTORY : Hysterectomy. ENCOUNTER: Initial ACUITY: 2 days PAIN SCALE: 8/10 LOCATION: Left flank TECHNIQUE: Volumetric scanning of the abdomen and pelvis was performed. Using automated exposure control and ad justment of the mA and/or kV according to patient size, radiation dose was kept as low as reasonably achievable to obtain optimal diagnostic quality images. DICOM format image data is available electro nically for review and comparison. FINDINGS: LOWER LUNGS: The visualized lower lungs are clear. LIVER: Punctate, now with a calcification in the right hepatic lobe. Otherwise, homogeneous density without mass lesion or intrahepatic biliary duct dilatation. There is no dilation of the biliary tree. No c alcified gallstones. SPLEEN: Normal size without lesion. PANCREAS: Within normal limits. KIDNEYS: Normal in size and shape. There is no mass, stone, or hydronephrosis. ADRENAL GLANDS: Within normal limits. VASCULAR: There is no aortic aneurysm. BOWEL/MESENTERY: There is some diverticular disease in the descending and sigmoid colon without diverticulitis. ABDOMINAL WALL: Within normal limits. RETROPERITONEUM: There is no lymphadenopathy. BLADDER: No wall thickening or mass. REPRODUCTIVE: Patient reports a history of hysterectomy but the uterus is still present.. INGUINAL: There is no lymphadenopathy or hernia. MUSCULOSKELETAL: Within normal limits for patient age. CONCLUSION: 1. Diverticular disease of the descending and sigmoid colon without diverticulitis. 2. No renal or ureteral calculi. 3. Patient reports history of hysterectomy but the uterus is still present. Cannot definitively ident lupe the appendix, however. 4. Benign-appearing dystrophic or granulomatous type calcification in the right hepatic lobe Rao Garza MD on December 01, 2017 at 2:53 Board Certified Radiologist. This report was verified electronically.
[2017-12-01 04:00] VITALS: BP 203/87; PULSE 59; RESP 20; O2SAT 98
[2017-12-01] MEDS ORDERED: hydrALAZINE HCL 10 MG TAB PO ONE (04:00)
[2017-12-01] MEDS ORDERED: ENALAPRIL MALEATE 10 MG TAB PO ONE (04:00)
[2017-12-01 04:35] VITALS: BP 187/77; PULSE 58; RESP 16; O2SAT 98
--- NOTE | 2017-12-01 05:37 | RADRPT ---
EXAM DATE/TIME: 12/01/2017 05:08 [facility] COMPARISON: CHEST SINGLE AP, September 20, 2017, 20:09. INDICATIONS : Short of breath. Left flank pain. MEDICAL HISTORY : Hypertension. Chronic obstructive pulmonary disease. Gastroesophageal reflux disease. SURGICAL HISTORY : Hysterectomy. ENCOUNTER: Initial ACUITY: 1 day PAIN SCORE: 5/10 LOCATION: Left chest FINDINGS: A single view of the chest demonstrates stable elevation of left hemidiaphragm with minimal left basi lar atelectasis. Lungs otherwise clear. Heart size is normal. Dextroscoliosis of the thoracolumbar sp ine with associated degenerative changes. CONCLUSION: Stable chest with elevation of the left hemidiaphragm and mild left basilar atelectasis. Rao Garza MD on December 01, 2017 at 5:34 Board Certified Radiologist. This report was verified electronically.
[2017-12-01] MEDS ORDERED: valACYclovir HCL 500 MG TAB PO ONE (05:45)
--- NOTE | 2017-12-01 06:08 | HHI.HP ---
HPI Service Family Medicine Primary Care Physician Craig Correia MD Admission Diagnosis hypertensive urgency, possible zoster Diagnoses: International Travel<30 Days: No Contact w/Intl Traveler<30days: No Known Affected Area: No Past Family Social History Past Medical History Hypertension Congestive Heart Failure COPD Atrial Fibrillation Past Surgical History None Echocardiogram: 09/06/12 - ejection fraction of 50-55% with normal wall motion Myocardial perfusion scan: 09/07/12 - slight ischemia in the LAD distribution with an ejection fraction of 60% Reported Medications Reported Meds & Active Scripts Active Ipratropium Neb (Ipratropium [place]) 0.5 Mg/2.5 Ml Amp 0.5 Mg NEB Q6HR NEB PRN Guaiatussin AC Liquid (Codeine Phosphate/Guaifenesin) 10 Mg-100 Mg/5 Ml (5 Ml) Liquid 5 Ml PO Q6HR PRN Symbicort Inh (Budesonide/Formoterol Fumarate) 80-4.5 Mcg/Act Aero 1 Puff INH NEEDED Lorazepam 1 Mg Tab 1 Mg PO BID PRN Enalapril (Enalapril Maleate) 20 Mg Tab 20 Mg PO BID Fluoxetine 10 mg daily (has not started taking yet) Reported Hydralazine HCl 10 Mg Tablet 10 Mg PO BID Lasix (Furosemide) 20 Mg Tab 20 Mg PO DAILY Omeprazole 40 mg daily Flonase Nasal [place] (Fluticasone Nasal [place]) 50 Mcg/Act [place] 1 [place] EACH NARE BID PRN Metoprolol tartarate 25 mg PO BID Sotalol 120 mg PO BID Aspirin 325 Mg Tab 325 Mg PO QID PRN Allergies: Coded Allergies: acetaminophen (Verified Allergy, Severe, Tachycardia, swelling, 12/01/17) Swelling lips, throat hydrocodone (Verified Allergy, Severe, Tachycardia, swelling, 12/01/17) Swelling lips, throat ibuprofen (Verified Allergy, Severe, Swelling, 12/01/17) Swelling lips, throat morphine (Verified Allergy, Severe, Swelling, 12/01/17) Swelling lips , throat propoxyphene (Verified Allergy, Severe, Swelling, 12/01/17) Swelling, lips , throat albuterol (Verified Allergy, Intermediate, Tachycardia, 12/01/17) amoxicillin (Verified Allergy, Unknown, Atrial Fibrillation, 12/01/17) codeine (Verified Allergy, Unknown, 12/01/17) sertraline (Verified Allergy, Unknown, 12/01/17) pantoprazole (Verified Adverse Reaction, Unknown, Nausea/Vomiting, 12/01/17) Uncoded Allergies: INHALERS FOR COPD (ALL) (Allergy, Severe, PALPITATIONS/DIAPHORESIS, 11/16/13 ) VICOPROFEN (Allergy, Severe, Swelling, 11/16/13) "ANY PAIN PILLS" (Adverse Reaction, Severe, AFIB, 11/16/13) Family History Father: age 72, sudden cardiac , cardiomyopathy Mother: age 66 Siblings: brother - HTN, sleep apnea Children: daughter - post cardiomyopathy Social History Marrital Status: Education: high school grad 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 Tobacco: never Alcohol: none Illicit drug use: none Physical Exam Vital Signs Vital Signs Date Time Temp Pulse Resp B/P (MAP) Pulse Ox O2 Delivery O2 Flow Rate FiO2 12/01/17 04:35 58 16 187/77 (113) 98 Nasal Cannula 2.00 12/01/17 04:00 59 20 203/87 (125) 98 Nasal Cannula 2.00 12/01/17 00:59 98.8 63 18 200/94 (129) 99 Laboratory Laboratory Tests Test 12/01/17 01:25 12/01/17 03:25 White Blood Count 11.4 Red Blood Count 4.53 Hemoglobin 12.2 Hematocrit 37.6 Mean Corpuscular Volume 82.9 Mean Corpuscular Hemoglobin 27.0 Mean Corpuscular Hemoglobin Concent 32.5 Red Cell Distribution Width 14.5 Platelet Count 265 Mean Platelet Volume 7.7 Neutrophils (%) (Auto) 74.7 Lymphocytes (%) (Auto) 15.0 Monocytes (%) (Auto) 6.3 Eosinophils (%) (Auto) 3.4 Basophils (%) (Auto) 0.6 Neutrophils # (Auto) 8.5 Lymphocytes # (Auto) 1.7 Monocytes # (Auto) 0.7 Eosinophils # (Auto) 0.4 Basophils # (Auto) 0.1 CBC Comment DIFF FINAL Differential Comment Urine Color LIGHT-YELLOW Urine Turbidity CLEAR Urine pH 6.0 Urine Specific [place] 1.012 Urine Protein NEG Urine Glucose (UA) NEG Urine Ketones NEG Urine Occult Blood NEG Urine Nitrite NEG Urine Bilirubin NEG Urine Urobilinogen LESS THAN 2.0 Urine Leukocyte Esterase NEG Urine RBC LESS THAN 1 Urine WBC 1 Urine Squamous Epithelial Cells 1 Urine Transitional Epithelial Cells <1 Microscopic Urinalysis Comment CULT NOT INDICATED Blood Urea Nitrogen 14 Creatinine 0.83 Random Glucose 99 Calcium Level 9.0 Sodium Level 142 Potassium Level 3.9 Chloride Level 102 Carbon Dioxide Level 36.1 Anion Gap 4 Estimat Glomerular Filtration Rate 70 Troponin I LESS THAN 0.02 B-Type Natriuretic Peptide 129 Clue Cells (Wet Prep) NONE SEEN Vaginal Trichomonas (Wet Prep) NONE SEEN Vaginal Yeast (Wet Prep) NONE SEEN Chlamydia trachomatis DNA (PCR) NOT DETECTED Neisseria gonorrhoeae DNA (PCR) NOT DETECTED Result Diagram: 12/01/1712412/01/17124 Caprini VTE Risk Assessment Caprini Risk Assessment Model Point Value = 1 Point Value = 2 Point Value = 3 Point Value = 5 Age 41-60 Minor surgery BMI > 25 kg/m2 Swollen legs Varicose veins or History of unexplained or recurrent spontaneous Oral contraceptives or hormone replacement Sepsis (< 1 month) Serious lung disease, including pneumonia (< 1 month) Abnormal pulmonary function Acute myocardial infarction Congestive heart failure (< 1 month) History of inflammatory bowel disease Medical patient at bed rest Age 61-74 Arthroscopic surgery Major open surgery (> 45 min) Laparoscopic surgery (> 45 min) Malignancy Confined to bed (> 72 hours) Immobilizing plaster cast Central venous access Age >= 75 History of VTE Family history of VTE Factor V Leiden Prothrombin [id number] Lupus anticoagulant Anticardiolipin antibodies Elevated serum homocysteine Heparin-induced thrombocytopenia Other congenital or acquired thrombophilia Stroke (< 1 month) Elective arthroplasty Hip, pelvis, or leg fracture Acute spinal cord injury (< 1 month) Prophylaxis Regimen Total Risk Factor Score Risk Level Prophylaxis Regimen 0-1 Low Early ambulation 2 Moderate Order ONE of the following: *Sequential Compression Device (SCD) *Heparin 5000 units SQ BID 3-4 Higher Order ONE of the following medications: *Heparin 5000 units SQ TID *Enoxaparin/Lovenox 40 mg SQ daily (WT < 150 kg, CrCl > 30 mL/min) *Enoxaparin/Lovenox 30 mg SQ daily (WT < 150 kg, CrCl > 10-29 mL/min) *Enoxaparin/Lovenox 30 mg SQ BID (WT < 150 kg, CrCl > 30 mL/min) AND/OR *Sequential Compression Device (SCD) 5 or more Highest Order ONE of the following medications: *Heparin 5000 units SQ TID (Preferred with Epidurals) *Enoxaparin/Lovenox 40 mg SQ daily (WT < 150 kg, CrCl > 30 mL/min) *Enoxaparin/Lovenox 30 mg SQ daily (WT < 150 kg, CrCl > 10-29 mL/min) *Enoxaparin/Lovenox 30 mg SQ BID (WT < 150 kg, CrCl > 30 mL/min) AND *Sequential Compression Device (SCD) Physician Certification 2 Midnight Certification Type: Admission for Inpatient Services Order for Inpatient Services The services are ordered in accordance with Medicare regulations or non- Medicare payer requirements, as applicable. In the case of services not specified as inpatient-only, they are appropriately provided as inpatient services in accordance with the 2-midnight benchmark. Estimated LOS (days): 2 days is the estimated time the patient will need to remain in the hospital, assuming treatment plan goals are met and no additional complications. Post-Hospital Plan: Home Marky Delarosa MD R2 December 01, 2017 06:08
--- NOTE | 2017-12-01 06:36 | HHI.HP ---
[facility] Service Family Medicine Primary Care Physician Craig Correia MD Admission Diagnosis hypertensive urgency, possible zoster Diagnoses: International Travel<30 Days: No Contact w/Intl Traveler<30days: No Known Affected Area: No History of Present Illness 62 yo female with HTN, CHF, COPD presenting with a 2 day history of left sided flank pain associated with chills. No sick contacts. Described as burning/ stabbing pain. Takes aspirin for pain at home (multiple allergies to other pain meds) which helped somewhat. No dysuria. +frequency. (Marky Delarosa MD R2) Review of Systems Constitutional: COMPLAINS OF: Chills, DENIES: Fever Endocrine: DENIES: Heat/cold intolerance Eyes: DENIES: Vision loss Ears, nose, mouth, throat: COMPLAINS OF: Nasal discharge (chronic) Respiratory: COMPLAINS OF: Cough (chronic, dry), Wheezing (chronic, at baseline ), DENIES: Sputum production, Shortness of breath Gastrointestinal: COMPLAINS OF: Nausea, DENIES: Diarrhea, Vomiting Genitourinary: COMPLAINS OF: Urinary frequency, DENIES: Abnormal vaginal bleeding, Dysmenorrhea, Hematuria, Dysuria, Vaginal discharge Musculoskeletal: DENIES: Joint pain, Muscle aches Integumentary: DENIES: Rash Hematologic/lymphatic: DENIES: Bruising Neurologic: DENIES: Headache, Localized weakness Psychiatric: COMPLAINS OF: Anxiety, DENIES: Depression (Marky Delarosa MD R2) Past Family Social History Past Medical History Hypertension Congestive Heart Failure COPD Atrial Fibrillation Past Surgical History None Echocardiogram: 09/06/12 - ejection fraction of 50-55% with normal wall motion Myocardial perfusion scan: 09/07/12 - slight ischemia in the LAD distribution with an ejection fraction of 60% (Marky Delarosa MD R2) Allergies: Coded Allergies: acetaminophen (Verified Allergy, Severe, Tachycardia, swelling, 12/01/17) Swelling lips, throat hydrocodone (Verified Allergy, Severe, Tachycardia, swelling, 12/01/17) Swelling lips, throat ibuprofen (Verified Allergy, Severe, Swelling, 12/01/17) Swelling lips, throat morphine (Verified Allergy, Severe, Swelling, 12/01/17) Swelling lips , throat propoxyphene (Verified Allergy, Severe, Swelling, 12/01/17) Swelling, lips , throat albuterol (Verified Allergy, Intermediate, Tachycardia, 12/01/17) amoxicillin (Verified Allergy, Unknown, Atrial Fibrillation, 12/01/17) codeine (Verified Allergy, Unknown, 12/01/17) sertraline (Verified Allergy, Unknown, 12/01/17) pantoprazole (Verified Adverse Reaction, Unknown, Nausea/Vomiting, 12/01/17) Uncoded Allergies: INHALERS FOR COPD (ALL) (Allergy, Severe, PALPITATIONS/DIAPHORESIS, 11/16/13 ) VICOPROFEN (Allergy, Severe, Swelling, 11/16/13) "ANY PAIN PILLS" (Adverse Reaction, Severe, AFIB, 11/16/13) Family History Father: age 72, sudden cardiac , cardiomyopathy Mother: age 66 Siblings: brother - HTN, sleep apnea Children: daughter - post cardiomyopathy Social History Marrital Status: Education: high school grad 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 Vesicles with erythematous bases clustered along L4/L5 nerve distribution on the left side. HEAD: NC/AT EYES: PERRL. EOMI. No conjunctival injection or drainage. ENT: MMM, OP without erythema, tonsillar swelling, or exudate. NECK: Supple, non-tender CARDIOVASCULAR: NRRR. Normal S1/S2. No MRG RESPIRATORY: Normal rate and effort. Diffuse end expiratory wheezes and diminished breath sounds throughout. GASTROINTESTINAL: Abdomen soft, obese, non-distended, mildly TTP suprapubically and at LLQ/LUQ. MUSCULOSKELETAL: Extremities without clubbing, cyanosis, or edema. NEUROLOGICAL: Awake and alert. Cranial nerves II through XII grossly intact. Moves all extremities without difficulty. Normal speech. Per ER physician: : + milky white D/C, No CMT/adnexa tenderness, + bleeding Laboratory Laboratory Tests Test 12/01/17 01:25 12/01/17 03:25 White Blood Count 11.4 Red Blood Count 4.53 Hemoglobin 12.2 Hematocrit 37.6 Mean Corpuscular Volume 82.9 Mean Corpuscular Hemoglobin 27.0 Mean Corpuscular Hemoglobin Concent 32.5 Red Cell Distribution Width 14.5 Platelet Count 265 Mean Platelet Volume 7.7 Neutrophils (%) (Auto) 74.7 Lymphocytes (%) (Auto) 15.0 Monocytes (%) (Auto) 6.3 Eosinophils (%) (Auto) 3.4 Basophils (%) (Auto) 0.6 Neutrophils # (Auto) 8.5 Lymphocytes # (Auto) 1.7 Monocytes # (Auto) 0.7 Eosinophils # (Auto) 0.4 Basophils # (Auto) 0.1 CBC Comment DIFF FINAL Differential Comment Urine Color LIGHT-YELLOW Urine Turbidity CLEAR Urine pH 6.0 Urine Specific [place] 1.012 Urine Protein NEG Urine Glucose (UA) NEG Urine Ketones NEG Urine Occult Blood NEG Urine Nitrite NEG Urine Bilirubin NEG Urine Urobilinogen LESS THAN 2.0 Urine Leukocyte Esterase NEG Urine RBC LESS THAN 1 Urine WBC 1 Urine Squamous Epithelial Cells 1 Urine Transitional Epithelial Cells <1 Microscopic Urinalysis Comment CULT NOT INDICATED Blood Urea Nitrogen 14 Creatinine 0.83 Random Glucose 99 Calcium Level 9.0 Sodium Level 142 Potassium Level 3.9 Chloride Level 102 Carbon Dioxide Level 36.1 Anion Gap 4 Estimat Glomerular Filtration Rate 70 Troponin I LESS THAN 0.02 B-Type Natriuretic Peptide 129 Clue Cells (Wet Prep) NONE SEEN Vaginal Trichomonas (Wet Prep) NONE SEEN Vaginal Yeast (Wet Prep) NONE SEEN Chlamydia trachomatis DNA (PCR) NOT DETECTED Neisseria gonorrhoeae DNA (PCR) NOT DETECTED (Marky Delarosa MD R2) Result Diagram: 12/01/17 0125 12/01/17 0125 Imaging Last Impressions Chest X-Ray 12/01/17 0502 Signed Impressions: Service Date/Time: Friday, December 01, 2017 05:08 - CONCLUSION: Stable chest with elevation of the left hemidiaphragm and mild left basilar atelectasis. Rao Garza MD Abdomen/Pelvis CT 12/01/17 0157 Signed Impressions: Service Date/Time: Friday, December 01, 2017 02:13 - CONCLUSION: 1. Diverticular disease of the descending and sigmoid colon without diverticulitis. 2. No renal or ureteral calculi. 3. Patient reports history of hysterectomy but the uterus is still present. Cannot definitively identify the appendix, however. 4. Benign-appearing dystrophic or granulomatous type calcification in the right hepatic lobe Rao Garza MD (Marky Delarosa MD R2) Deedee VTE Risk Assessment Capelizabeth VTE Risk Assessment: Mod/High Risk (score >= 2) (Marky Delarosa MD R2) Assessment and Plan Assessment and Plan 62 yo female with HTN, CHF, COPD presenting with: (Marky Delarosa MD R2) Attending Attestation Patient seen and examined. Case reviewed and discussed with the resident team. Agree with plan of care as discussed with me and documented in the resident note. she was seen on the i her room with Dr Segura and is unfortunately unable to receive any pain meds or other effective treatments for pain as she has broken skin right now. antivirals will help but she will still be suffering unfortunately (Filomena Williamson MD) Problem List: (1) Flank pain ICD Codes: R10.9 - Unspecified abdominal pain Status: Acute Plan: Clinically likely secondary to herpes zoster UA negative Pelvic exam with possible BV, not suspicious for PID and low risk -F/u wet prep, GC/CT -Manage zoster as below -VB: can consider pelvic U/S but will need to be transvaginal due to body habitus. Patient reports only minimal bleeding subjectively so best option may be to monitor as outpatient and consider EMB if subjective bleeding noted. (2) Herpes zoster ICD Codes: B02.9 - Zoster without complications Status: Acute Plan: Uncomplicated herpes zoster by exam -Valtrex 1000 mg TID x7 days -Multiple severe allergic type reactions to pain meds -never tried toradol before, will leave available PRN Q6H (3) Hypertension ICD Codes: I10 - Hypertension Status: Chronic Plan: BP significantly elevated, likely due to pain and being almost due for AM meds -Continue home sotalol, metoprolol, enalapril, hydralazine -Monitor BP (4) COPD (chronic obstructive pulmonary disease) ICD Codes: J44.9 - Chronic obstructive pulmonary disease Status: Chronic Plan: Stable, not in exacerbation at present -DuoNebs PRN (5) Atrial fibrillation ICD Codes: I48.91 - Atrial fibrillation Status: Chronic Plan: HR in good control, regular -continue home sotalol, metoprolol (6) Depression with anxiety ICD Codes: F41.8 - Other specified anxiety disorders Status: Chronic Plan: Has been prescribed fluoxetine but not started yet -Start while in obs (7) Congestive heart failure ICD Codes: I50.9 - Heart failure, unspecified Status: Chronic Plan: Stable, not appearing in exacerbation at present -Continue Lasix, beta blockers (8) FEN/PPX Plan: Fluids: PO only, caution given CHF Elecs: monitor, replete PRN Nutrition: Diet regular DVT: Lovenox GI: Pepcid BID Code status: full code Dispo: Obs, may be PM discharge depending on BP (Marky Delarosa MD R2) Problem Qualifiers (1) Herpes zoster: Qualified Codes: B02.9 - Zoster without complications (2) Hypertension: Qualified Codes: I10 - Essential (primary) hypertension Marky Delarosa MD R2 December 01, 2017 06:36 Filomena Williamson MD December 03, 2017 11:16
[2017-12-01] MEDS ORDERED: BISACODYL 10 MG SUPP RECTAL PRN (06:45)
[2017-12-01] MEDS ORDERED: SENNOSIDES 8.6 MG TAB PO PRN (06:45)
[2017-12-01] MEDS ORDERED: NALOXONE HCL 0.4 MG/ML AMP IV PUSH PRN (06:45)
[2017-12-01] MEDS ORDERED: FLUTICASONE PROPIONATE 50 MCG/ACT 16 GM NASAL SPRAY EACH NARE PRN (06:45)
[2017-12-01] MEDS ORDERED: RESP: ALBUTEROL 2.5 MG/IPRATROPIUM 0.5 MG NEB (PRN) NEB (06:45)
[2017-12-01] MEDS ORDERED: LORazepam 1 MG TAB PO PRN (06:45)
[2017-12-01] MEDS ORDERED: LACTULOSE SYRUP 20 GM/30 ML CUP PO PRN (06:45)
[2017-12-01] MEDS ORDERED: MAGNESIUM HYDROXIDE SUSP 30 ML CUP PO PRN (06:45)
[2017-12-01] MEDS ORDERED: SODIUM CHLORIDE 0.9% FLUSH 10 ML FLUSH IV FLUSH PRN (06:45)
[2017-12-01] MEDS ORDERED: KETOROLAC TROMETHAMINE 30 MG/ML (IVP) VIAL IV PUSH PRN (06:45)
[2017-12-01] MEDS ORDERED: METO25TA3 PO (07:09)
[2017-12-01 07:20] VITALS: BP 173/74; PULSE 65; RESP 18
[2017-12-01] MEDS ORDERED: PILL SPLITTER OTHER PRN (07:30)
[2017-12-01] MEDS ORDERED: ENOXAPARIN SODIUM 40 MG/0.4 ML SYRINGE SQ SCH (08:00)
[2017-12-01 08:32] VITALS: BP 164/98; PULSE 68; RESP 18; TEMP 97.8; O2SAT 95
[2017-12-01] MEDS ORDERED: FAMOTIDINE 20 MG TAB PO SCH (09:00)
[2017-12-01] MEDS ORDERED: SOTALOL HCL 80 MG TAB PO SCH (09:00)
[2017-12-01] MEDS ORDERED: FUROSEMIDE 20 MG TAB PO SCH (09:00)
[2017-12-01] MEDS ORDERED: SODIUM CHLORIDE 0.9% FLUSH 10 ML FLUSH IV FLUSH SCH (09:00)
[2017-12-01] MEDS ORDERED: hydrALAZINE HCL 10 MG TAB PO SCH ×2 (09:00→17:00)
[2017-12-01] MEDS ORDERED: METOPROLOL TARTRATE 25 MG TAB PO SCH (09:00)
[2017-12-01] MEDS ORDERED: DOCUSATE SODIUM 50 MG/SENNA 8.6 MG TAB PO SCH (09:00)
[2017-12-01] MEDS ORDERED: ONDANSETRON ODT 4 MG TAB PO PRN (09:30)
[2017-12-01] MEDS ORDERED: RESP: IPRATROPIUM 0.5 MG/2.5 ML NEB NEB PRN (10:15)
--- NOTE | 2017-12-01 10:40 | EKG ---
Date Performed: 12/01/2017 Time Performed: 05:09:53 PTAGE: 62 years EKG: Probably Sinus rhythm , but baseline artifact makes this substandard for interpretation Suspect nonspecific ST abnormalitie s PREVIOUS TRACING : 09/20/2017 22.40 No obvious changes from the prior tracing. Tracing is complicated by the artifact. DOCTOR: Keith Chew Interpretating Date/Time 12/01/2017 10:40:31
[2017-12-01] MEDS ORDERED: HYDROCORTISONE 1% OINT 30 GM TUBE TOPICAL PRN (11:45)
--- NOTE | 2017-12-01 12:16 | HHI.PR ---
Addendum to Inpatient Note Addendum Reason: Additional Documentation Additional Information S: Pt seen and examined this morning. No acute events overnight. Patient reports that she experiences an anaphylactic reaction when taking any type of pain medication and she declines to try any type of pain medication at this time. Pt reports noticing rust colored staining of her underwear several days ago. Exam in ED was significant for blood in the vaginal vault. Patient denies any noticeable vaginal bleeding. O: GENERAL: WDWN obese adult white female lying in bed appearing somewhat uncomfortable, pleasant, NAD SKIN: Cool and dry. Vesicles with erythematous bases clustered along L4/L5 nerve distribution on the left side. HEAD: NC/AT EYES: PERRL. EOMI. No conjunctival injection or drainage. ENT: Moist mucous membranes NECK: Supple, non-tender CARDIOVASCULAR: Regular rate and rhythm. No murmurs rubs or gallops appreciated. RESPIRATORY: Normal rate and effort.Good air movement, mild end expirtory wheezing GASTROINTESTINAL: Abdomen soft, obese, non-distended, no significant tenderness , +BS MUSCULOSKELETAL: Extremities without clubbing, cyanosis, or edema. NEUROLOGICAL: Awake and alert. Cranial nerves II through XII grossly intact. Normal speech. A/P: 1) Shingles -Pt to be discharged with Valacyclovir -Due to reported anaphylactic reactions to multiple pain medication and patient refusal to try additional pain medications will hold off on prescription analgesia 2) Vaginal Bleeding in postmenopausal female -Transvaginal US to be ordered as an outpatient -Endometrial biopsy to be scheduled as an outpatient 3) Hypertension -Elevated blood pressures likely secondary to pain due to shingles, see plan above -Continue home blood pressure medications -Continue to monitor blood pressure 4) COPD -Breathing stable -Continue home ipratropium 5) Sleep apnea -Patient reports significant history of sleep apnea but is unable to tolerate a CPAP machine due to feeling claustrophobic. -Consider pulmonology referral as an outpatient to further discuss sleeping options. 6) A Fib -HR controlled -Continue home medications 7) CHF -Continue home medications Raúl Segura MD R3 December 01, 2017 12:16
[2017-12-01] MEDS ORDERED: VALT500T PO (12:24)
--- NOTE | 2017-12-01 12:28 | HHI.DCPOC ---
Discharge Care Plan Diagnosis: (1) Herpes zoster (2) Anxiety (3) Paroxysmal atrial fibrillation (4) Hypertension (5) COPD (chronic obstructive pulmonary disease) Goals to Promote Your Health * To prevent worsening of your condition and complications * To maintain your health at the optimal level Directions to Meet Your Goals Take your medications as prescribed Follow your dietary instruction Follow activity as directed Keep your appointments as scheduled Take your immunizations and boosters as scheduled If your symptoms worsen call your PCP, if no PCP go to Urgent Care Center or Emergency Room Smoking is Dangerous to Your Health. Avoid second hand smoke Call the 24-hour hour crisis hotline for domestic abuse at Raúl Segura MD R3 December 01, 2017 12:28
[2017-12-01] MEDS ORDERED: HYDR2.5O TOPICAL (12:52)
[2017-12-01] MEDS ORDERED: valACYclovir HCL 500 MG TAB PO SCH (14:00)
[2017-12-01] MEDS ORDERED: ENALAPRIL MALEATE 10 MG TAB PO SCH (17:00)
== END 2017-12-01 15:13 | disposition home or self-care (01) ==
LOC: NEPC 00:56 → NEDA 05:40 → INTOOBSV 05:40 → NEPGCP 08:26
PROVIDERS: ADMIT Family Medicine; ATTEND Family Medicine
DX: R10.9 Unspecified abdominal pain (principal); B02.9 Zoster without complications; I16.0 Hypertensive urgency; I11.0 Hypertensive heart disease with heart failure; I50.9 Heart failure, unspecified; J44.9 Chronic obstructive pulmonary disease, unspecified; K57.30 Diverticulosis of large intestine without perforation or abscess without bleeding; I48.0 Paroxysmal atrial fibrillation; F41.8 Other specified anxiety disorders; G47.30 Sleep apnea, unspecified; K21.9 Gastro-esophageal reflux disease without esophagitis; M41.9 Scoliosis, unspecified; R32 Unspecified urinary incontinence; Z79.899 Other long term (current) drug therapy; Z79.82 Long term (current) use of aspirin
CPT/HCPCS: 71045; 74176; 80048; 81001; 83880; 84484; 85025; 87210; 87491; 87591; 93005; 99285; G0378; J1650

== ENCOUNTER 2018-09-14 02:35 | Inpatient (IN) ==
[2018-09-14 03:54] LABS: Baso # (Auto) 0.1 th/mm3 (0.0-0.2); Baso % (Auto) 0.6 % (0.0-2.0); Eos # (Auto) 0.3 th/mm3 (0.0-0.4); Eos % (Auto) 2.5 % (0.0-4.0); Hematocrit 31.9 % (35.0-46.0); Hemoglobin 10.5 gm/dL (11.6-15.3); Lymph # (Auto) 1.2 th/mm3 (1.0-4.8); Lymph % (Auto) 11.5 % (9.0-44.0); Mean Corpuscular HGB Conc 32.9 % (32.0-36.0); Mean Corpuscular Hemoglobin 28.9 pg (27.0-34.0); Mean Corpuscular Volume 87.8 fL (80.0-100.0); Mean Platelet Volume 7.8 fL (7.0-11.0); Mono # (Auto) 0.7 th/mm3 (0.0-0.9); Mono % (Auto) 6.5 % (0.0-8.0); Neut # (Auto) 8.4 th/mm3 (1.8-7.7); Neut % (Auto) 78.9 % (16.0-70.0); Platelet Count 232 th/mm3 (150-450); Red Blood Count 3.63 mil/mm3 (4.00-5.30); Red Cell Distribution Width 15.5 % (11.6-17.2); White Blood Count 10.6 th/mm3 (4.0-11.0)
[2018-09-14 04:09] LABS: Alanine Aminotransferase 19 U/L (10-53); Anion Gap 3 meq/L (5-15); Aspartate Aminotransferase 12 U/L (15-37); Blood Urea Nitrogen 13 mg/dL (7-18); Calcium 8.7 mg/dL (8.5-10.1); Carbon Dioxide 41.8 meq/L (21.0-32.0); Chloride 99 meq/L (98-107); Glomerular Filtration Rate 69 mL/min (>89); Glucose,Random 102 mg/dL (74-106); Potassium 3.8 meq/L (3.5-5.1); Sodium 144 meq/L (136-145)
[2018-09-14 04:13] LABS: Alkaline Phosphatase 99 U/L (45-117); Total Protein 7.1 g/dL (6.4-8.2)
--- NOTE | 2018-09-14 04:25 | XR ---
EXAM DATE: 09/14/2018 3:59 AM EST AGE/SEX: 63 years / Female INDICATIONS: Shortness of breath. CLINICAL DATA: This is the patient's initial encounter. Patient reports that signs and symptoms have been present for 3 days and indicates a pain score of 0/10. MEDICAL/SURGICAL HISTORY: Chronic obstructive pulmonary disease. Congestive heart failure. Hy pertension. A-fib. None. [place] [facility] [place]. . FINDINGS: Stable elevation of the left diaphragm. Mild vascular congestion and central interstitial prominence. Cardiac contours are unchanged. CONCLUSION: Mild interstitial prominence. Electronically signed by: Festus Reardon MD Board Certified Radiologist 09/14/2018 4:24 AM EST
--- NOTE | 2018-09-14 04:43 | ED ---
HPI General Chief complaint: Shortness of Breath/Dyspnea Stated complaint: Diff breathing Time Seen by Provider: 09/14/18 03:22 Source: patient Mode of arrival: ambulatory Limitations: no limitations History of Present Illness HPI narrative: 63 yo female complains of shortness of breath. It has been bothersome continuously for weeks. Over the past couple days it is worsened. She reports decreasing her Lasix doses from twice daily to once daily yesterday in keeping with recommendation per Dr. Silverman. No chest pain. No cough or fever. Patient describes increased bilateral lower extremity swelling. Patient also describes burning paresthesias about various places in the body intermittently. No numbness tingling weakness. No loss of consciousness. Dyspnea on exertion is reported. Orthopnea is reported. Past medical history includes sleep apnea, CHF and COPD with home oxygen, hypertension and A. fib. BMI is 49. Related Data Allergies Allergy/AdvReac Type Severity Reaction Status Date / Time acetaminophen Allergy Severe Tachycardia, Verified 09/14/18 02:45 swelling hydrocodone Allergy Severe Tachycardia, Verified 09/14/18 02:45 swelling ibuprofen Allergy Severe Swelling Verified 09/14/18 02:45 morphine Allergy Severe Swelling Verified 09/14/18 02:45 propoxyphene Allergy Severe Swelling Verified 09/14/18 02:45 albuterol Allergy Intermediate Tachycardia Verified 09/14/18 02:45 amoxicillin Allergy Unknown Atrial Verified 09/14/18 02:45 Fibrillation codeine Allergy Unknown UNKNOWN Verified 09/14/18 02:45 sertraline Allergy Unknown UNKNOWN Verified 09/14/18 02:45 pantoprazole AdvReac Unknown Nausea/Vomi Verified 09/14/18 02:45 ting INHALERS FOR COPD (ALL) Allergy Severe PALPITATION Uncoded 09/14/18 02:45 S/DIAPHORES IS VICOPROFEN Allergy Severe Swelling Uncoded 09/14/18 02:45 "ANY PAIN PILLS" AdvReac Severe AFIB Uncoded 09/14/18 02:45 Review of Systems ROS: all other systems reviewed are negative [facility] Medical History Medical History A-fib (Acute) CHF (congestive heart failure) (Acute) COPD (chronic obstructive pulmonary disease) (Acute) Hypertension (Acute) Oxygen dependent (Acute) Sleep apnea (Acute) Social History Social History Second Hand Smoke Exposure: No Smoking Status: Never smoker How Often Do You Have a Drink Containing Alcohol: Never Immunization History Tetanus Immunization: <5 Years Exam Narrative Exam Narrative: GENERAL: 63-year-old female pleasant well-nourished well- developed, mild distress due to dyspnea, BMI 49 SKIN: Focused skin assessment warm/dry. HEAD: Atraumatic. Normocephalic. EYES: Pupils equal and round. No scleral icterus. No injection or drainage. ENT: No nasal bleeding or discharge. Mucous membranes pink and moist. NECK: Trachea midline. No JVD. CARDIOVASCULAR: Regular rate and rhythm. No murmur appreciated. RESPIRATORY: Respiratory rate about 24. The lungs are clear to my exam. GASTROINTESTINAL: Abdomen soft, non-tender, nondistended. Hepatic and splenic margins not palpable. MUSCULOSKELETAL: No obvious deformities. No clubbing. No cyanosis. Minimal bilateral edema 2+ pitting. No asymmetry. No warmth or induration. NEUROLOGICAL: Awake and alert. No obvious cranial nerve deficits. Motor grossly within normal limits. Normal speech. PSYCHIATRIC: Appropriate mood and affect; insight and judgment normal. Course Initial Documented Vital Signs Temperature 98.8 F 09/14/18 02:45 Pulse Rate 74 09/14/18 02:45 Respiratory Rate 18 09/14/18 02:45 Blood Pressure 142/64 H 09/14/18 02:45 Pulse Oximetry 94 L 09/14/18 02:45 Last Documented Vital Signs Temperature 98.8 F 09/14/18 02:45 Pulse Rate 74 09/14/18 03:03 Respiratory Rate 28 H 09/14/18 03:03 Blood Pressure 142/64 H 09/14/18 02:45 Pulse Oximetry 94 L 09/14/18 03:03 Medical Decision Making [facility] Narrative Medical decision making narrative: White blood cell count 10,600 Hemoglobin 10.5 Platelets 232 The BNP is 108 The troponin is less than 0.02 The albumin is 3.0 The chest x-ray shows mild interstitial prominence The workup is grossly unremarkable. Upon reassessment of the patient at 4:45 AM she reports persistent shortness of breath at rest. The significant other notes their recent visit to [place] where each enjoyed several dishes including some teriyaki beef in addition to chicken among others sodium laden samplings. d/w Dr Womack for [facility]. Medical Screen Exam Complete: Yes Emergency Medical Condition: Yes Lab Data Result diagrams: 09/14/18 03:30 09/14/18 03:30 Lab Results 09/14/18 09/14/18 09/14/18 Range/Units 03:30 03:30 03:30 WBC 10.6 (4.0-11.0) th/mm3 RBC 3.63 L (4.00-5.30) mil/mm3 Hgb 10.5 L (11.6-15.3) gm/dL Hct 31.9 L (35.0-46.0) % MCV 87.8 (80.0-100.0) fL MCH 28.9 (27.0-34.0) pg MCHC 32.9 (32.0-36.0) % RDW 15.5 (11.6-17.2) % Plt Count 232 (150-450) th/mm3 MPV 7.8 (7.0-11.0) fL Neut % (Auto) 78.9 H (16.0-70.0) % Lymph % (Auto) 11.5 (9.0-44.0) % [place] % (Auto) 6.5 (0.0-8.0) % Eos % (Auto) 2.5 (0.0-4.0) % Baso % (Auto) 0.6 (0.0-2.0) % Neut # (Auto) 8.4 H (1.8-7.7) th/mm3 Lymph # (Auto) 1.2 (1.0-4.8) th/mm3 [place] # (Auto) 0.7 (0.0-0.9) th/mm3 Eos # (Auto) 0.3 (0.0-0.4) th/mm3 Baso # (Auto) 0.1 (0.0-0.2) th/mm3 WBC Differential . Differential Comment Auto diff final Sodium 144 (136-145) meq/L Potassium 3.8 (3.5-5.1) meq/L Chloride 99 (98-107) meq/L Carbon Dioxide 41.8 H (21.0-32.0) meq/L Anion Gap 3 L (5-15) meq/L BUN 13 (7-18) mg/dL Creatinine 0.83 (0.50-1.00) mg/dL Estimated GFR 69 L (>89) mL/min Random Glucose 102 (74-106) mg/dL Calcium 8.7 (8.5-10.1) mg/dL Total Bilirubin 0.3 (0.2-1.0) mg/dL AST 12 L (15-37) U/L ALT 19 (10-53) U/L Alkaline Phosphatase 99 (45-117) U/L Troponin I Less than 0.02 L (0.02-0.05) ng/mL B-Natriuretic Peptide 108 H (0-100) pg/mL Total Protein 7.1 (6.4-8.2) g/dL Albumin 3.0 L (3.4-5.0) g/dL Imaging Data Radiologist's impression: Chest X-Ray 09/14/18 03:22 CONCLUSION: Mild interstitial prominence. Discharge Plan Discharge Disposition Patient Disposition: ED Admit(ED Internal Use Only) Discharge Condition Condition: Stable Discharge Order Discharge Orders: ED Use Only Admit Order (Routine); Ordered 09/14/18 Ordered By: Thad Bernardo Physicians Team ED Provider: Thad Bernardo Primary Care Provider: Malathi Silverman Attending Provider: Craig Correia Status ED Status: Admitted Observation Patient
--- NOTE | 2018-09-14 05:22 | P.HPFP ---
History of Present Illness Primary Care Physician: Malathi Silverman MD <Filomena Williamson - 09/14/18 12:51> Malathi Silverman MD <Soha Potter - 09/14/18 05:22> Chief Complaint: Shortness of breath <Soha Potter - 09/14/18 07:08> History of Present Illness: Patient is a 63-year-old female that presents to the [place] ED with a chief complaint of shortness of breath that has been going on for the past few weeks but in the last 2-3 days it has acutely worsened such that it has been very difficult to breathe and she has noticed that her feet are very swollen. She is having difficulty lying on her side which is how she sleeps, laying flat, or lying on her stomach. She is unable to walk to the bathroom without difficulty. She also complains of worsening tremors in her hands such that she has difficulty holding objects. She has gained 45 pounds in the past 3 -4 months even though she has not been eating more than usual. She did have a lots of Afghan food yesterday with a friend. She states that she saw her fish bin tender Dr. Silverman on Wednesday who asked her to drink as much fluid and juice as she possibly could and reduce her dose of Lasix from 20 mg twice a day to once a day. Other symptoms that she reports include chronic abdominal pain, drooling and sore throat this morning that resolved with mouthwash. No fever or cough, no increased sputum production although she mentions drooling. Her PCP is Dr. Correia of the [facility]. 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, no alcohol or drug use <Soha Potter - 09/14/18 07:08> - Diagnosis (1) CHF exacerbation (2) Hypertension (3) COPD (chronic obstructive pulmonary disease) (4) RAD (obstructive sleep apnea) (5) GERD (gastroesophageal reflux disease) (6) Afib (7) Anxiety (8) Tremors of nervous system (9) Chronic back pain (10) Anemia <Filomena Williamson 09/14/18 12:51> (1) CHF exacerbation (2) Hypertension (3) COPD (chronic obstructive pulmonary disease) (4) RAD (obstructive sleep apnea) (5) GERD (gastroesophageal reflux disease) (6) Afib (7) Anxiety (8) Tremors of nervous system (9) Chronic back pain (10) Anemia <[facility] 09/14[facility] 07:09> Inpatient Certification: I certify that the inpatient services were ordered in accordance with Medicare regulations governing the order. This includes certification that hospital inpatient services are reasonable and necessary and in the case of services not specified as inpatient-only under 42 CFR 419.22(n), that they are appropriately provided as inpatient services in accordance to with the 2-midnight benchmark under 43 CFR 412.3(e) <Filomena Williamson 09/14/18 12:51> Review of Systems Constitutional: Reports chills, Denies fever(s) [facility] 09/14/[facility] 05:33> Eyes: Reports blurry vision (in the last 6 months) <[facility] 05:33> Ears, Nose, Mouth, and Throat: Reports nasal congestion, Reports sore throat < [facility] 09/14/18 05:33> Cardiovascular: Reports shortness of breath, Reports shortness of breath with activity, Reports shortness of breath when lying down, Denies chest pain <[facility] 09/14/18 05:33> Respiratory: Reports cough <[facility] 09/14/18 05:33> Gastrointestinal: Reports abdominal pain (chronic - 2/3 years), Denies vomiting <[facility] 09/14/18 05:33> Genitourinary: Reports frequent nighttime urination <[address] 05:33> Musculoskeletal: Reports body aches, Reports joint pain (left shoulder pain - chronic), Reports neck pain <[facility] 09/14/18 05:33> Skin/Breast: Denies rash <Soha Potter [facility] 09/14/18 05:33> Neurologic: Reports headache(s), Reports tremor(s) <Soha Potter [facility] 05:33> PMFSH - History History Provided By: Patient <Soha Potter [facility] 09/14/18 05:22> - Medical History Medical History: Medical History (Last Updated 09/14/18 @ 02:52 by Candice Worrell, YULIANA) A-fib CHF (congestive heart failure) COPD (chronic obstructive pulmonary disease) Hypertension Oxygen dependent Sleep apnea <Filomena Williamson 09/14/18 12:51> Medical History (Last Updated 09/14/18 @ 02:52 by Candice Worrell, YULIANA) A-fib CHF (congestive heart failure) COPD (chronic obstructive pulmonary disease) Hypertension Oxygen dependent Sleep apnea <Soha Potter [facility] 09/14/18 05:22> - Tobacco History Second Hand Smoke Exposure: No <Soha Potter [facility] 09/14/18 05:22> Tobacco Use In Past 30 Days: No <Soha Potter [facility] 09/14/18 05:22> Smoking Status: Never smoker <Soha Potter [facility] 09/14/18 05:22> - Alcohol History How Often Do You Have a Drink Containing Alcohol: Never <Soha Potter [facility] 05:22> - Immunization History Tetanus Immunization: <5 Years <Soha Potter [facility] 09/14/18 05:22> Medications and Allergies Allergies Allergy/AdvReac Type Severity Reaction Status Date / Time acetaminophen Allergy Severe Tachycardia, Verified 09/14/18 02:45 swelling hydrocodone Allergy Severe Tachycardia, Verified 09/14/18 02:45 swelling ibuprofen Allergy Severe Swelling Verified 09/14/18 02:45 morphine Allergy Severe Swelling Verified 09/14/18 02:45 propoxyphene Allergy Severe Swelling Verified 09/14/18 02:45 albuterol Allergy Intermediate Tachycardia Verified 09/14/18 02:45 amoxicillin Allergy Unknown Atrial Verified 09/14/18 02:45 Fibrillation codeine Allergy Unknown UNKNOWN Verified 09/14/18 02:45 sertraline Allergy Unknown UNKNOWN Verified 09/14/18 02:45 pantoprazole AdvReac Unknown Nausea/Vomi Verified 09/14/18 02:45 ting INHALERS FOR COPD (ALL) Allergy Severe PALPITATION Uncoded 09/14/18 02:45 S/DIAPHORES IS VICOPROFEN Allergy Severe Swelling Uncoded 09/14/18 02:45 "ANY PAIN PILLS" AdvReac Severe AFIB Uncoded 09/14/18 02:45 <Filomena Williamson M - 09/14/18 12:51> Home Medications Medication Instructions Recorded Confirmed Type enalapril maleate 5 mg PO DAILY 09/14/18 09/14/18 History furosemide [Lasix] 20 mg PO DAILY 09/14/18 09/14/18 History hydralazine 10 mg PO Q12H 09/14/18 09/14/18 History metoprolol tartrate 50 mg PO BID 09/14/18 09/14/18 History <Filomena Williamson M - 09/14/18 12:51> Active Medications: Active Medications Al Hydroxide/Mg Hydroxide (Milk Of PlaceFullayla Quintanilla) 30 ml PO Q12H PRN PRN Reason: Mild Constipation Aspirin (Aspirin Chew) 81 mg PO DAILY [facility] Last Admin: 09/14/18 09:08 Dose: 81 mg Bisacodyl (Dulcolax Supp) 10 mg RECTAL DAILY PRN PRN Reason: SEVERE CONSITIPATION Enalapril Maleate (Vasotec) 20 mg PO BID [facility] Last Admin: 09/14/18 09:02 Dose: 20 mg Enalaprilat (Vasotec Inj) 1.25 mg IV.PUSH Q6H PRN PRN Reason: SEE LABEL COMMENTS Enoxaparin Sodium (Lovenox Inj) 40 mg SQ Q24H [facility] Last Admin: 09/14/18 09:04 Dose: Not Given Famotidine (Pepcid) 20 mg PO DAILY [facility] Last Admin: 09/14/18 09:08 Dose: 20 mg Fluticasone Propionate (Flonase Nasal [place]) 1 spray NASAL DAILY PRN PRN Reason: NASAL CONGESTION Furosemide (Lasix Inj) 40 mg IV.PUSH BID@0900,1800 [facility] Last Admin: 09/14/18 09:00 Dose: 40 mg Hydralazine HCl (Apresoline) 10 mg PO BID [facility] Last Admin: 09/14/18 09:09 Dose: 10 mg Ipratropium [place] (Atrovent Neb) 0.5 mg NEB Q6HR NEB [facility] Last Admin: 09/14/18 09:41 Dose: 0.5 mg Lactulose (Lactulose Liq) 30 ml PO DAILY PRN PRN Reason: SEVERE CONSITIPATION Lorazepam (Ativan) 1 mg PO Q12H [facility] Last Admin: 09/14/18 09:04 Dose: Not Given Metoprolol Tartrate (Lopressor) 12.5 mg PO BID [facility] Last Admin: 09/14/18 09:07 Dose: 12.5 mg Miscellaneous (Pill Splitter) 1 each OTHER UNSCH PRN PRN Reason: SEE LABEL COMMENTS Senna/Docusate Sodium (Eulalia-Colace) 1 tab PO BID [facility] Last Admin: 09/14/18 09:04 Dose: 1 tab Sennosides (Senokot) 17.2 mg PO Q12H PRN PRN Reason: Moderate Constipation Simethicone (Phazyme Chew) 125 mg PO DAILY [facility] Last Admin: 09/14/18 09:01 Dose: 125 mg Sodium Chloride (Ns Flush) 2 ml IV.FLUSH BID [facility] Last Admin: 09/14/18 09:02 Dose: 2 ml Sodium Chloride (Ns Flush) 2 ml IV.FLUSH UNSCH PRN PRN Reason: FLUSH AFTER USING IV ACCESS <Filomena Williamson - 09/14/18 12:51> Exam Vital signs: Vital Signs 09/14/18 02:45 09/14/18 03:03 09/14/18 03:22 Temperature 98.8 F Pulse Rate 74 74 Respiratory Rate 18 28 H Blood Pressure 142/64 H Pulse Oximetry 94 L 94 L 97 09/14/18 05:30 09/14/18 07:41 09/14/18 08:16 Temperature 98.6 F 98.3 F 98.3 F Pulse Rate 69 72 69 Respiratory Rate 22 20 18 Blood Pressure 153/71 H 120/71 120/67 Pulse Oximetry 96 97 96 09/14/18 09:44 09/14/18 10:09 09/14/18 11:36 Temperature 98.3 F Pulse Rate 70 73 65 Respiratory Rate 22 20 Blood Pressure 117/61 Pulse Oximetry 94 L 100 Intake & Output 09/13/18 09/14/1819 18:59 06:59 18:59 Weight 137.438 kg 140.5 kg Other: Weight On Admission 140.5 kg <Filomena Williamson - 09/14/18 12:51> Vital Signs 09/14/18 02:45 09/14/18 03:03 Temperature 98.8 F Pulse Rate 74 74 Respiratory Rate 18 28 H Blood Pressure 142/64 H Pulse Oximetry 94 L 94 L Intake & Output 09/13/18 09/13/18 09/14/18 06:59 18:59 06:59 Weight 137.438 kg <Eko Soha Giraldo - 09/14/18 05:22> Narrative: Exam Narrative: GENERAL: 63-year-old female pleasant well-nourished, well- developed, obese, appears very uncomfortable, nasal cannula in place SKIN: Focused skin assessment warm/dry. HEAD: Atraumatic. Normocephalic. EYES: Pupils equal and round. No scleral icterus. No injection or drainage. ENT: No nasal bleeding or discharge. Mucous membranes pink and moist. NECK: Trachea midline. No JVD. CARDIOVASCULAR: Regular rate and rhythm. No murmur appreciated. RESPIRATORY: Mild bibasilar crackles appreciated, no wheezing, no rhonchi, however lung sounds are distant due to poor effort GASTROINTESTINAL: Abdomen soft, non-tender, nondistended. MUSCULOSKELETAL: No obvious deformities. No clubbing. No cyanosis. Early venous stasis changes noted bilaterally. Bilateral edema 2+ pitting up to her knee. NEUROLOGICAL: Awake and alert. No obvious cranial nerve deficits. Cranial nerve exam is normal. Motor grossly within normal limits. Normal speech. PSYCHIATRIC: Appropriate mood and affect; insight and judgment normal. <Eko Soha Giraldo - 09/14/18 07:08> Results - Labs Result diagrams: 09/14/18 03:30 09/14/18 03:30 <Filomena Williamson - 09/14/18 12:51> Abnormal lab results 09/14/18 09/14/18 09/14/18 Range/Units 03:30 03:30 03:30 RBC 3.63 L (4.00-5.30) mil/mm3 Hgb 10.5 L (11.6-15.3) gm/dL Hct 31.9 L (35.0-46.0) % Neut % (Auto) 78.9 H (16.0-70.0) % Neut # (Auto) 8.4 H (1.8-7.7) th/mm3 Carbon Dioxide 41.8 H (21.0-32.0) meq/L Anion Gap 3 L (5-15) meq/L Estimated GFR 69 L (>89) mL/min AST 12 L (15-37) U/L Troponin I Less than 0.02 L (0.02-0.05) ng/mL B-Natriuretic Peptide 108 H (0-100) pg/mL Albumin 3.0 L (3.4-5.0) g/dL HDL Cholesterol (40.0-60.0) mg/dL 09/14/18 Range/Units 03:30 RBC (4.00-5.30) mil/mm3 Hgb (11.6-15.3) gm/dL Hct (35.0-46.0) % Neut % (Auto) (16.0-70.0) % Neut # (Auto) (1.8-7.7) th/mm3 Carbon Dioxide (21.0-32.0) meq/L Anion Gap (5-15) meq/L Estimated GFR (>89) mL/min AST (15-37) U/L Troponin I (0.02-0.05) ng/mL B-Natriuretic Peptide (0-100) pg/mL Albumin (3.4-5.0) g/dL HDL Cholesterol 72.5 H (40.0-60.0) mg/dL Short CBC 09/14/18 Range/Units 03:30 WBC 10.6 (4.0-11.0) th/mm3 Hgb 10.5 L (11.6-15.3) gm/dL Hct 31.9 L (35.0-46.0) % Plt Count 232 (150-450) th/mm3 BMP 09/14/18 03:30 Sodium 144 Potassium 3.8 Chloride 99 Carbon Dioxide 41.8 H BUN 13 Creatinine 0.83 Calcium 8.7 Cardiac Enzymes 09/14/18 Range/Units 03:30 Troponin I Less than 0.02 L (0.02-0.05) ng/mL Liver Function 09/14/18 Range/Units 03:30 Total Bilirubin 0.3 (0.2-1.0) mg/dL AST 12 L (15-37) U/L ALT 19 (10-53) U/L Alkaline Phosphatase 99 (45-117) U/L Albumin 3.0 L (3.4-5.0) g/dL <Filomena Williamson - 09/14/18 12:51> Abnormal lab results 09/14/18 09/14/18 09/14/18 Range/Units 03:30 03:30 03:30 RBC 3.63 L (4.00-5.30) mil/mm3 Hgb 10.5 L (11.6-15.3) gm/dL Hct 31.9 L (35.0-46.0) % Neut % (Auto) 78.9 H (16.0-70.0) % Neut # (Auto) 8.4 H (1.8-7.7) th/mm3 Carbon Dioxide 41.8 H (21.0-32.0) meq/L Anion Gap 3 L (5-15) meq/L Estimated GFR 69 L (>89) mL/min AST 12 L (15-37) U/L Troponin I Less than 0.02 L (0.02-0.05) ng/mL B-Natriuretic Peptide 108 H (0-100) pg/mL Albumin 3.0 L (3.4-5.0) g/dL Short CBC 09/14/18 Range/Units 03:30 WBC 10.6 (4.0-11.0) th/mm3 Hgb 10.5 L (11.6-15.3) gm/dL Hct 31.9 L (35.0-46.0) % Plt Count 232 (150-450) th/mm3 [facility] 09/14/18 03:30 Sodium 144 Potassium 3.8 Chloride 99 Carbon Dioxide 41.8 H BUN 13 Creatinine 0.83 Calcium 8.7 Cardiac Enzymes 09/14/18 Range/Units 03:30 Troponin I Less than 0.02 L (0.02-0.05) ng/mL Liver Function 09/14/18 Range/Units 03:30 Total Bilirubin 0.3 (0.2-1.0) mg/dL AST 12 L (15-37) U/L ALT 19 (10-53) U/L Alkaline Phosphatase 99 (45-117) U/L Albumin 3.0 L (3.4-5.0) g/dL <Soha Potter - 09/14/18 05:22> - Imaging Impressions Chest X-Ray 09/14/18 03:22 CONCLUSION: Mild interstitial prominence. <Filomena Williamson - 09/14/18 12:51> Impressions Chest X-Ray 09/14/18 03:22 CONCLUSION: Mild interstitial prominence. <Fredo Soha Giraldo - 09/14/18 05:22> Caprini VTE Risk Assessment Caprini VTE Risk Assessment: Moderate/High Risk (score >= 2) <Fredo Soha Giraldo - 09/14/18 07:08> Caprini Risk Assessment Model: Point Value = 1 Point Value = 2 Point Value = 3 Point Value = 5 Age 41-60 Minor surgery BMI > 25 kg/m2 Swollen legs Varicose veins or History of unexplained or recurrent spontaneous Oral contraceptives or hormone replacement Sepsis (< 1 month) Serious lung disease, including pneumonia (< 1 month) Abnormal pulmonary function Acute myocardial infarction Congestive heart failure (< 1 month) History of inflammatory bowel disease Medical patient at bed rest Age 61-74 Arthroscopic surgery Major open surgery (> 45 min) Laparoscopic surgery (> 45 min) Malignancy Confined to bed (> 72 hours) Immobilizing plaster cast Central venous access Age >= 75 History of VTE Family history of VTE Factor V Leiden Prothrombin [id number] Lupus anticoagulant Anticardiolipin antibodies Elevated serum homocysteine Heparin-induced thrombocytopenia Other congenital or acquired thrombophilia Stroke (< 1 month) Elective arthroplasty Hip, pelvis, or leg fracture Acute spinal cord injury (< 1 month) <Filomena Williamson - 09/14/18 12:51> Prophylaxis Regimen: Total Risk Factor Score Risk Level Prophylaxis Regimen 0-1 Low Early ambulation 2 Moderate Order ONE of the following: *Sequential Compression Device (SCD) *Heparin 5000 units SQ BID 3-4 Higher Order ONE of the following medications: *Heparin 5000 units SQ TID *Enoxaparin/Lovenox 40 mg SQ daily (WT < 150 kg, CrCl > 30 mL/min) *Enoxaparin/Lovenox 30 mg SQ daily (WT < 150 kg, CrCl > 10-29 mL/min) *Enoxaparin/Lovenox 30 mg SQ BID (WT < 150 kg, CrCl > 30 mL/min) AND/OR *Sequential Compression Device (SCD) 5 or more Highest Order ONE of the following medications: *Heparin 5000 units SQ TID (Preferred with Epidurals) *Enoxaparin/Lovenox 40 mg SQ daily (WT < 150 kg, CrCl > 30 mL/min) *Enoxaparin/Lovenox 30 mg SQ daily (WT < 150 kg, CrCl > 10-29 mL/min) *Enoxaparin/Lovenox 30 mg SQ BID (WT < 150 kg, CrCl > 30 mL/min) AND *Sequential Compression Device (SCD) <Filomena Williamson - 09/14/18 12:51> Assessment and Plan - Assessment (1) CHF exacerbation Code(s): I50.9 - Heart failure, unspecified Status: Acute (2) Hypertension Code(s): I10 - Essential (primary) hypertension Status: Acute (3) COPD (chronic obstructive pulmonary disease) Code(s): J44.9 - Chronic obstructive pulmonary disease, unspecified Status: Acute (4) RAD (obstructive sleep apnea) Code(s): G47.33 - Obstructive sleep apnea (adult) (pediatric) Status: Acute (5) GERD (gastroesophageal reflux disease) Code(s): K21.9 - Gastro-esophageal reflux disease without esophagitis Status: Acute (6) Afib Code(s): I48.91 - Unspecified atrial fibrillation Status: Acute (7) Anxiety Code(s): F41.9 - Anxiety disorder, unspecified Status: Acute (8) Tremors of nervous system Code(s): R25.1 - Tremor, unspecified Status: Acute (9) Chronic back pain Code(s): M54.9 - Dorsalgia, unspecified; G89.29 - Other chronic pain Status: Acute (10) Anemia Code(s): D64.9 - Anemia, unspecified Status: Acute <Filomena Williamson - 09/14/18 12:51> (1) CHF exacerbation Code(s): I50.9 - Heart failure, unspecified Status: Acute (2) Hypertension Code(s): I10 - Essential (primary) hypertension Status: Acute (3) COPD (chronic obstructive pulmonary disease) Code(s): J44.9 - Chronic obstructive pulmonary disease, unspecified Status: Acute (4) RAD (obstructive sleep apnea) Code(s): G47.33 - Obstructive sleep apnea (adult) (pediatric) Status: Acute (5) GERD (gastroesophageal reflux disease) Code(s): K21.9 - Gastro-esophageal reflux disease without esophagitis Status: Acute (6) Afib Code(s): I48.91 - Unspecified atrial fibrillation Status: Acute (7) Anxiety Code(s): F41.9 - Anxiety disorder, unspecified Status: Acute (8) Tremors of nervous system Code(s): R25.1 - Tremor, unspecified Status: Acute (9) Chronic back pain Code(s): M54.9 - Dorsalgia, unspecified; G89.29 - Other chronic pain Status: Acute (10) Anemia Code(s): D64.9 - Anemia, unspecified Status: Acute <Eko R3,Soha U - 09/14/18 07:09> - Assessment and Plan 63-year-old female presents with worsening shortness of breath that is concerning for CHF exacerbation versus acute IN versus PE versus pneumonia. She will be admitted to the hospital for management with diuretics and breathing treatments. CHF exacerbation -BNP unequivocal at 108 but chest x-ray shows mild vascular congestion and central interstitial prominence -Patient clearly short of breath on exam but not tachycardic on exam -EKG was not available for review but troponin less than 0.02 -Patient saturating at 96% on 2 L by NC -Fluid restrict to 1500 mL of fluid daily -Monitor I's and O's strictly -Continuous cardiac telemetry -Urinalysis with reflex culture pending -Lipid panel, TSH pending -Cardiology consult-Dr. Silverman, appreciate recommendations -Received 1 dose of Lasix 40 mg IV in the ED -Continue Lasix 40 mg IV twice daily -Spiriva nebulizer 0.5 mg twice daily schedule -patient reports allergy to albuterol -Holding patient's sotalol due to CHF exacerbation -continue metoprolol 12.5 mg p.o. twice daily as tolerated, hold if worsening decompensation Hypertension -Continue enalapril 20 mg twice daily -Continue hydralazine 10 mg twice daily -Vasotec IV PRN SBP greater than 180 or DBP greater than 100 COPD -Unsure of diagnosis due to denial of smoking history -Possible heavy secondhand smoke exposure -Possible asthma -Spiriva nebulizer as above -however, consider duonebs because patient may have received in the past Sleep apnea -Monitor status, provide CPAP if needed Anemia -Stable at 10.5/31.9 -Monitor while in the hospital, consider iron studies if worsens, otherwise outpatient management recommended Anxiety -Continue lorazepam 1 mg p.o. twice daily scheduled GERD -Allergic to pantoprazole, will start famotidine 20 mg daily; increase to twice daily if needed Tremors -Tremors appears stable on my exam -Recommend outpatient management Chronic back pain/arthritis -Allergic to multiple pain medications including ibuprofen and Tylenol, not on any pain medications at home -Consider alternative therapies if needed -PT evaluate and treat while in the hospital FEN -Restricted fluids as above -Monitor and replenish as needed -Cardiac diet with 2 mg of sodium -Lovenox subcu for DVT prophylaxis -Constipation protocol on board, patient requests simethicone daily Full code -Does not have a living will but have 41-year-old daughter Riya Valencia, who lives in [place], is her healthcare surrogate - <Soha Potter U - 09/14/18 07:08> Discussed Condition With: ED Physician <Soha Potter - 09/14/18 06:45> Discharge Planning: Pending clinical improvement <Soha Potter - 09/14/18 06:45> - Attending Attestation The exam, history, and the medical decision-making described in the above note were completed with the assistance of the resident physician. I reviewed and agree with the findings presented with the addition of my following comments. I attest that I had a [id number] encounter with the patient on the same day, and personally performed and documented my assessment and findings in the medical record. On discussion with this lady, she states she has a history of CHF and COPD. However on further questioning, she admits to a history of sleep apnea. She states she saw Dr Floyd and was evaluated and he tried 6 different types of masks which she declined. She has a near panic attack with any mask or "something blowing on my face". Per respiratory, she even pulled off the mask for the nebulizer. She reports extreme claustrophobia and refuses any mask but was tolerating nasal canula. Per respiratory there is a nasal prong that can be used for sleep apnea. It is unclear if that would be tolerated by her or not. Discussed with her that her sleep apnea is probably the cause of her breathing problems, etc. I explained how serious this can be and that people can from this. I explained that the increased CO2 and decreased oxygen can "spill over" from night to effect her during the day. I told her that some people end up on a ventilator or getting a trach. She said to me, "You have to fix this problem but without a mask". Unfortunately, I don't know that her wish can be accomplished. Her recent 45 lb weight gain is likely making her worse. Appreciate help of Dr Silverman her regular [employer]. I am somewhat doubtful that CHF is the cause of her current problems as her BNP is fine but her severe sleep apnea is probably effecting her heart. Also appreciate any suggestions Dr Floyd has as this problem is not treatable without a device to help her sleep apnea but he can hopefully help this situation. <Filomena Williamson - 09/14/18 12:51>
[2018-09-14] MEDS ORDERED: Bisacodyl 10 MG Supp RECTAL PRN (06:17)
[2018-09-14 07:57] LABS: Magnesium 2.3 mg/dL (1.5-2.5)
[2018-09-14 08:05] LABS: Chol/HDL Ratio 2.23 Ratio; HDL Cholesterol 72.5 mg/dL (40.0-60.0); Thyroid Stimulating Hormone 2.63 uIU/mL (0.358-3.740)
[2018-09-14] MEDS ORDERED: Metoprolol Tartrate 25 MG Tablet PO SCH (09:00)
[2018-09-14] MEDS: Simethicone 125 MG Chew Tablet PO SCH (09:01)
[2018-09-14] MEDS: Enoxaparin Inj 40 MG/0.4 ML Syringe SQ SCH (09:04)
[2018-09-14] MEDS: LORazepam 1 MG Tablet PO SCH ×2 (09:04→21:11)
[2018-09-14] MEDS: Senna/Docusate Sodium 8.6/50 MG Tablet PO SCH ×2 (09:04→21:12)
[2018-09-14] MEDS: Famotidine 20 MG Tablet PO SCH (09:08)
[2018-09-14] MEDS: hydrALAZINE 10 MG Tablet PO SCH ×2 (09:09→21:11)
[2018-09-14 13:05] LABS: Bilirubin,Urine Negative (Negative); Clarity,Urine Clear (Clear); Color,Urine Straw (Yellw/Straw); Glucose,Urine (UA) Negative (Negative); Hyaline Casts,Urine 4 /lpf (0-3); Leukocyte Esterase,Urine Negative (Negative); Mucus,Urine Few /lpf (Occasional); Nitrite,Urine Negative (Negative); Specific Gravity,Urine 1.006 (1.002-1.035); Squamous Epithelial Cell,Urine 1 /hpf (0-5)
--- NOTE | 2018-09-14 13:09 | MB ---
cc: Keith Chew MD DATE: 09/14/2018 REASON FOR CONSULTATION: Evaluation of shortness of breath. HISTORY OF PRESENT ILLNESS: Rossy Valencia is a 63-year-old female who sees my partner, Dr. Silverman. She has a history of super morbid obesity. She has sleep apnea, but unable to tolerate CPAP. She is on home oxygen. She has, as stated, history of CHF. Her EF was 50%-55% by echo 09/16/2012. EF was 47% by MUGA scan 03/07/2015. She carries a diagnosis of CHF probably related to diastolic dysfunction. She has been on sotalol in the past for paroxysmal atrial fibrillation. I do not see that has been continued here for reasons that are unclear. The patient cut back her diuretic, she says based on the oral advice from Dr. Silverman. She also had [place] food over the weekend and with that has developed marked increased swelling in her legs and increasing shortness of breath with some orthopnea. Denies any anginal chest pain. PAST MEDICAL HISTORY: Includes anxiety, sleep apnea, COPD, morbid obesity, previous vertigo. PAST SURGICAL HISTORY: Negative. MEDICATIONS: Charted. ALLERGIES: There are a long list that is charted here. FAMILY HISTORY: Positive for stroke, sudden cardiomyopathy, hypertension and [place]. SOCIAL HISTORY: Never smoked, never drank. REVIEW OF SYSTEMS: Noncontributory. PHYSICAL EXAMINATION: GENERAL: Reveals a super morbidly obese white female. VITAL SIGNS: Charted. HEENT: Her neck is too thick to see her neck veins. CHEST: Shows diminished breath sounds. CARDIAC EXAM: Nonpalpable PMI. Soft, distant heart sounds, regular rate and rhythm. I cannot hear an S3. ABDOMEN: Grossly obese, soft, nontender. EXTREMITIES: Reveal 2+ lower extremity edema. DIAGNOSTIC DATA: Her EKG shows normal sinus rhythm. One atrial premature beat. Some nonspecific T-wave flattening. LABORATORY DATA: Hematocrit 31.9, creatinine 0.83. Troponins negative. BNP is only 108. LDL cholesterol 73. IMPRESSION: Suspect Pickwickian problems from super morbid obesity. She has home oxygen. Clearly has fluid retention. This is probably acute on chronic diastolic congestive heart failure. She is getting IV Lasix. She has a history of paroxysmal atrial fibrillation. I am going to change her beta polina back to sotalol. Repeat labs ordered tomorrow. Hopefully, she can go home tomorrow if stable. MD WILFRIDO Tim/venu , 12:40 PM , 12:51 PM
--- NOTE | 2018-09-14 15:59 | MB ---
cc: Harsh House MD DATE: 09/14/2018 REASON FOR CONSULTATION: COPD. HISTORY OF PRESENT ILLNESS: The patient is a 60-year-old female. She is morbidly obese, has known obstructive sleep apnea. She had declined using CPAP. She could not tolerate it and did return the equipment and does not want to be treated for same. She is admitted with increasing shortness of breath, believed to have diastolic dysfunction. She does have chronic lower extremity edema, which had increased lately. She does have a 3-pillow orthopnea. PAST MEDICAL HISTORY: 1. Diastolic dysfunction. 2. Chronic obstructive pulmonary disease. 3. Obstructive sleep apnea. 4. Morbid obesity. 5. Mood disorder, namely anxiety. FAMILY HISTORY: Positive for hypertension, heart failure, and sudden . No previous surgeries. MEDICATIONS: Include: 1. Aspirin. 2. Vasotec. 3. Lovenox prophylaxis. 4. Pepcid. 5. Flonase. 6. Lasix. 7. Alprazolam. 8. Atrovent nebulizer. 9. Lactulose. 10. Ativan as needed. ALLERGIES: 1. ACETAMINOPHEN/HYDROCODONE. 2. IBUPROFEN. 3. MORPHINE. 4. PROPOXYPHENE. 5. QUESTIONABLY ALBUTEROL. REVIEW OF SYSTEMS: A 12-point review of systems as per HPI and past history, otherwise negative. PHYSICAL EXAMINATION: GENERAL: The patient is alert. VITAL SIGNS: Temperature 98, pulse 70, respirations 18, blood pressure 120/86, oxygen saturation 94% on 2 liters oxygen nasal cannula. HEENT: Unremarkable. Eyes without icterus. NECK: Without adenopathy, thyroid enlargement. Central trachea. CHEST: Distant breath sounds. HEART: S1, S2 audible. A 1/6 ejection systolic murmur in the left sternal border. ABDOMEN: Lax, audible bowel sounds. EXTREMITIES: No clubbing, cyanosis. Two plus edema. LABORATORY DATA: White count 10,000, hemoglobin 10, hematocrit 31. Sodium 144, potassium 3.8, BUN 13, creatinine 0.8. Chest x-ray upon presentation with mild interstitial prominence. IMPRESSION: 1. Congestive heart failure. 2. Chronic obstructive pulmonary disease. 3. Morbid obesity. 4. Obstructive sleep apnea. 5. Anxiety. PLAN: The patient will be maintained on oxygen therapy as needed. Therapy for CHF is being undertaken, followed by cardiology. She is receiving Atrovent rather than albuterol which she declines to use. Her sleep apnea will remain untreated. She declines to use therapy for same. Obviously, she should be encouraged to lose weight. We will check baseline pulmonary function as well as arterial blood gas and, depending on progress, proceed further. I do thank you for asking me to partake in Mrs. Valencia's care. Harsh House MD WWW/ts , 03:31 PM , 03:41 PM
[2018-09-14 18:37] LABS: ABG Base Excess 16.8 mmol/L (-2-2); ABG PCO2 87 mmHg (38-42); ABG PO2 66 mmHg (61-120)
--- NOTE | 2018-09-14 20:10 | ECG ---
Date Performed: 09/14/2018 Time Performed: 04:56:42 PTAGE: 63 years EKG: Sinus rhythm WITH OCCASIONAL SUPRAVENTRICULAR PREMATURE COMPLEXES NONSPECIFIC ST & T-WAVE ABNORMALITY BORDERLINE ECG PREVIOUS TRACING : 12/01/2017 05.09 Since the previous tracing, no significant change noted DOCTOR: Jeremy Salgado Interpretating Date/Time 09/14/2018 20:09:48
[2018-09-15 05:21] LABS: Hematocrit 34.7 % (35.0-46.0); Hemoglobin 11.1 gm/dL (11.6-15.3); Mean Corpuscular HGB Conc 31.8 % (32.0-36.0); Mean Corpuscular Hemoglobin 27.9 pg (27.0-34.0); Mean Corpuscular Volume 87.7 fL (80.0-100.0); Mean Platelet Volume 7.8 fL (7.0-11.0); Platelet Count 282 th/mm3 (150-450); Red Blood Count 3.96 mil/mm3 (4.00-5.30); Red Cell Distribution Width 15.3 % (11.6-17.2); White Blood Count 11.8 th/mm3 (4.0-11.0)
[2018-09-15 05:43] LABS: Calcium 9.1 mg/dL (8.5-10.1); Carbon Dioxide 43.2 meq/L (21.0-32.0); Phosphorus 2.9 mg/dL (2.5-4.9); Potassium 3.6 meq/L (3.5-5.1)
--- NOTE | 2018-09-15 08:07 | P.PN ---
Subjective Interval history: obtunded this am NAD Physical Exam Vital signs: Vital Signs 09/14/18 08:16 09/14/18 09:44 09/14/18 10:09 Temperature 98.3 F Pulse Rate 69 70 73 Respiratory Rate 18 22 Blood Pressure 120/67 Pulse Oximetry 96 94 L 09/14/18 11:36 09/14/18 12:00 09/14/18 15:55 Temperature 98.3 F 98.2 F Pulse Rate 65 68 70 Respiratory Rate 20 18 18 Blood Pressure 117/61 126/76 Pulse Oximetry 100 96 09/14/18 16:00 09/14/18 20:00 09/14/18 20:18 Temperature 98.1 F 97.5 F L Pulse Rate 75 63 73 Respiratory Rate 18 18 Blood Pressure 150/77 H 139/83 Pulse Oximetry 95 97 94 L 09/15/18 00:00 09/15/18 03:26 09/15/18 04:00 Temperature 98.0 F 98.6 F Pulse Rate 72 75 75 Respiratory Rate 16 17 16 Blood Pressure 114/78 139/79 Pulse Oximetry 98 90 L 09/15/18 07:59 Temperature Pulse Rate 75 Respiratory Rate 16 Blood Pressure Pulse Oximetry 92 L Intake & Output 09/14/18 09/15/18 09/15/18 18:59 06:59 18:59 Intake Total 495 / 495 Output Total 1350 / 1350 Balance -855 / -855 Weight 140.5 kg Intake: Oral 495 / 495 Output: Urine 1350 / 1350 Other: # Voids 1 # Urine Diapers 3 Date of Last Bowel Movement 09/13/18 Weight On Admission 140.5 kg Narrative: Exam Narrative: GENERAL: 63-year-old female pleasant well-nourished, well- developed, obese, UNRESPONSIVE THIS AM SKIN: Focused skin assessment warm/dry. HEAD: Atraumatic. Normocephalic. EYES: Pupils equal and round. No scleral icterus. No injection or drainage. ENT: No nasal bleeding or discharge. Mucous membranes pink and moist. NECK: Trachea midline. No JVD. CARDIOVASCULAR: Regular rate and rhythm. No murmur appreciated. RESPIRATORY: Mild bibasilar crackles appreciated, no wheezing, no rhonchi, however lung sounds are distant due to poor effort GASTROINTESTINAL: Abdomen soft, non-tender, nondistended. MUSCULOSKELETAL: No obvious deformities. No clubbing. No cyanosis. Early venous stasis changes noted bilaterally. Bilateral edema 2+ pitting up to her knee. NEUROLOGICAL: Awake and alert. No obvious cranial nerve deficits. Cranial nerve exam is normal. Motor grossly within normal limits. Normal speech. PSYCHIATRIC: Appropriate mood and affect; insight and judgment normal. Results - Labs CBC & Chem 7: 09/15/18 05:01 09/15/18 05:01 Laboratory Results - last 24 hr 09/14/18 09/14/18 09/14/18 03:30 11:02 18:30 WBC RBC Hgb Hct MCV MCH MCHC RDW Plt Count MPV Puncture Site Right radial Patient Temperature 98.6 O2 Saturation 89 L* ABG pH 7.32 L ABG pCO2 87 H* ABG pO2 66 ABG HCO3 44 H ABG O2 Content 15.1 ABG Base Excess 16.8 H ABG Methemoglobin 1.3 Nilesh Test Present Hemoglobin 12.0 Carboxyhemoglobin 1.5 O2 Delivery Device Nasal cannula Liter Flow 2.00 Critical Value Yes Sodium Potassium Chloride Carbon Dioxide Anion Gap BUN Creatinine Estimated GFR Random Glucose Calcium Phosphorus B-Natriuretic Peptide Cholesterol 162 LDL Cholesterol, Calc 73 HDL Cholesterol 72.5 H Cholesterol/HDL Ratio 2.23 TSH 2.630 Urine Color Straw Urine Clarity Clear Urine pH 5.0 Ur Specific [place] 1.006 Urine Protein Negative Urine Glucose (UA) Negative Urine Ketones Negative Urine Occult Blood Negative Urine Nitrate Negative Urine Bilirubin Negative Urine Urobilinogen Less than 2 Ur Leukocyte Esterase Negative Urine RBC Less than 1 Urine WBC 1 Ur Squamous Epith Cells 1 Hyaline Casts 4 Urine Mucus Few H Micro UA Comment Culture not ind Ur Microscopic Review Not Reportable Urine Culture Comments Culture not ind 09/15/18 09/15/18 09/15/18 05:01 05:01 05:01 WBC 11.8 H RBC 3.96 L Hgb 11.1 L Hct 34.7 L MCV 87.7 MCH 27.9 MCHC 31.8 L RDW 15.3 Plt Count 282 MPV 7.8 Puncture Site Patient Temperature O2 Saturation ABG pH ABG pCO2 ABG pO2 ABG HCO3 ABG O2 Content ABG Base Excess ABG Methemoglobin Nilesh Test Hemoglobin Carboxyhemoglobin O2 Delivery Device Liter Flow Critical Value Sodium 142 Potassium 3.6 Chloride 94 L Carbon Dioxide 43.2 H Anion Gap 5 BUN 17 Creatinine 0.95 Estimated GFR 59 L Random Glucose 133 H Calcium 9.1 Phosphorus 2.9 B-Natriuretic Peptide 38 Cholesterol LDL Cholesterol, Calc HDL Cholesterol Cholesterol/HDL Ratio TSH Urine Color Urine Clarity Urine pH Ur Specific [place] Urine Protein Urine Glucose (UA) Urine Ketones Urine Occult Blood Urine Nitrate Urine Bilirubin Urine Urobilinogen Ur Leukocyte Esterase Urine RBC Urine WBC Ur Squamous Epith Cells Hyaline Casts Urine Mucus Micro UA Comment Ur Microscopic Review Urine Culture Comments Assessment and Plan - Plan RESPIRATORY FAILURE COPD CHF RAD AMS PLAN O2 NEEDED ABG CXRAY BMP
[2018-09-15 08:17] LABS: ABG Base Excess 16.8 mmol/L (-2-2); ABG PO2 77 mmHg (61-120)
[2018-09-15 08:18] LABS: ABG PCO2 130 mmHg (38-42)
[2018-09-15] MEDS ORDERED: Etomidate Inj 40 MG/20 ML Vial IV.PUSH ONE ×2 (08:41→09:30)
[2018-09-15] MEDS ORDERED: Midazolam 100 MG/100 ML Inj 100 MG/100 ML BAG IV.CONT PRN (09:06)
--- NOTE | 2018-09-15 09:18 | P.CONCC ---
History of Present Illness Service: Critical care medicine Consult date: 09/15/18 Requesting Physician: Soha Richardson R3 Reason for Consult: Acute respiratory failure Primary Care Provider: Malathi Silverman MD Chief Complaint: Shortness of breath History of Present Illness: This is a 63-year-old female. Date of admission 09/14/2018. Date of consultation 09/15/2018. Past medical history includes paroxysmal atrial fibrillation currently normal sinus rhythm, elevated BMI, congestive heart failure with last documented ejection fraction 55% 2012, COPD, hypertension, left bundle branch block essential tremors. Patient originally planned to [employer] on 09/14/2018 with worsening shortness of breath slowly on coming over the past couple weeks. She also noticed increasing bilateral lower extremity edema. Per documentation, patient recently saw her fingernail former Dr. Silverman on Wednesday who asked her to drink as much fluid and juice as she possibly could and reduce her dose of Lasix from 20 mg twice a day to once a day. During current hospitalization, patient resume home medications of enalapril, furosemide, metoprolol and hydralazine. Patient seen by cardiology and pulmonology. Refusing to be from central sleep apnea. Currently on ipratropium aerosols every [address] House. Seen by Dr. Chew. Switch to sotalol 80 mg twice daily and diuresis furosemide 40 mg IV twice daily. This morning, patient was found obtunded. PH was 7.17. Retaining CO2. Transfer to ICU and intubated using 20 mg etomidate. Review of Systems unobtainable due to endotracheal tube, unobtainable due to mental condition PMFSH - History History Provided By: Patient - Medical History Medical History: Medical History (Last Reviewed 09/15/18 @ 09:51 by Giles Cruz MD) A-fib CHF (congestive heart failure) COPD (chronic obstructive pulmonary disease) Hypertension Oxygen dependent Sleep apnea - Surgical History Surgical History: Surgical History (Last Updated 09/15/18 @ 09:53 by Giles Cruz MD) No pertinent past surgical history - Family History Family History: Family History (Last Updated 09/15/18 @ 09:53 by Giles Cruz MD) Father Family history of cardiomyopathy - Social History I have reviewed the patient's Social History: Yes - Tobacco History Second Hand Smoke Exposure: Yes Tobacco Use In Past 30 Days: No Smoking Status: Never smoker - Alcohol History How Often Do You Have a Drink Containing Alcohol: Never - Substance Use History Substance History: No History of Abuse - Immunization History Tetanus Immunization: <5 Years Hx Influenza Vaccine This Season: Yes Medications and Allergies Active Medications: Active Medications Al Hydroxide/Mg Hydroxide (Milk Of Magnesia Liq) 30 ml PO Q12H PRN PRN Reason: Mild Constipation Artificial Tears (Tears Naturale Opth Drops) 1 drop EACH EYE Q8H [facility] Aspirin (Aspirin Chew) 81 mg PO DAILY [facility] Last Admin: 09/14/18 09:08 Dose: 81 mg Bisacodyl (Dulcolax Supp) 10 mg RECTAL DAILY PRN PRN Reason: SEVERE CONSITIPATION Chlorhexidine Gluconate (Peridex 0.12% Oral Kit) 15 ml OROPHARYNG BID@0800, 2000 [facility] Enoxaparin Sodium (Lovenox Inj) 40 mg SQ Q24H [facility] Last Admin: 09/14/18 09:04 Dose: Not Given Etomidate (Amidate Inj) 40 mg IV.PUSH ONCE ONE Stop: 09/15/18 09:06 Famotidine (Pepcid Pf Inj) 20 mg IV.PUSH Q12HR [facility] Fluticasone Propionate (Flonase Nasal [place]) 1 spray NASAL DAILY PRN PRN Reason: NASAL CONGESTION Furosemide (Lasix Inj) 40 mg IV.PUSH BID@0900,1800 [facility] Last Admin: 09/14/18 18:33 Dose: 40 mg Hydralazine HCl (Apresoline) 10 mg PO BID [facility] Last Admin: 09/14/18 21:11 Dose: 10 mg Midazolam HCl (Versed Inj) 100 mg in 100 mls @ 2 mls/hr IV.CONT TITRATE PRN; Protocol PRN Reason: See protocol Ipratropium [place] (Atrovent Neb) 0.5 mg NEB Q4HR NEB [facility] Lactulose (Lactulose Liq) 30 ml PO DAILY PRN PRN Reason: SEVERE CONSITIPATION Lorazepam (Ativan) 1 mg PO Q12H [facility] Last Admin: 09/14/18 21:11 Dose: 1 mg Miscellaneous (Pill Splitter) 1 each OTHER UNSCH PRN PRN Reason: SEE LABEL COMMENTS Miscellaneous Medication () 1 each OROPHARYNG 0000,0400,1200,1600 [facility] Rocuronium [place] (Zemuron Inj) 100 mg IV.PUSH BOLUS ONE Stop: 09/15/18 09:06 Senna/Docusate Sodium (Eulalia-Colace) 1 tab PO BID [facility] Last Admin: 09/14/18 21:12 Dose: 1 tab Sennosides (Senokot) 17.2 mg PO Q12H PRN PRN Reason: Moderate Constipation Simethicone (Phazyme Chew) 125 mg PO DAILY [facility] Last Admin: 09/14/18 09:01 Dose: 125 mg Sodium Chloride (Ns Flush) 2 ml IV.FLUSH BID [facility] Last Admin: 09/14/18 21:11 Dose: 2 ml Sodium Chloride (Ns Flush) 2 ml IV.FLUSH UNSCH PRN PRN Reason: FLUSH AFTER USING IV ACCESS Sotalol HCl (Betapace) 80 mg PO BID [facility] Last Admin: 09/14/18 21:11 Dose: 80 mg Allergies Allergy/AdvReac Type Severity Reaction Status Date / Time acetaminophen Allergy Severe Tachycardia, Verified 09/14/18 02:45 swelling hydrocodone Allergy Severe Tachycardia, Verified 09/14/18 02:45 swelling ibuprofen Allergy Severe Swelling Verified 09/14/18 02:45 morphine Allergy Severe Swelling Verified 09/14/18 02:45 propoxyphene Allergy Severe Swelling Verified 09/14/18 02:45 albuterol Allergy Intermediate Tachycardia Verified 09/14/18 02:45 amoxicillin Allergy Unknown Atrial Verified 09/14/18 02:45 Fibrillation codeine Allergy Unknown UNKNOWN Verified 09/14/18 02:45 sertraline Allergy Unknown UNKNOWN Verified 09/14/18 02:45 pantoprazole AdvReac Unknown Nausea/Vomi Verified 09/14/18 02:45 ting INHALERS FOR COPD (ALL) Allergy Severe PALPITATION Uncoded 09/14/18 02:45 S/DIAPHORES IS VICOPROFEN Allergy Severe Swelling Uncoded 09/14/18 02:45 "ANY PAIN PILLS" AdvReac Severe AFIB Uncoded 09/14/18 02:45 Home Medications Medication Instructions Recorded Confirmed Type enalapril maleate 5 mg PO DAILY 09/14/18 09/14/18 History furosemide [Lasix] 20 mg PO DAILY 09/14/18 09/14/18 History hydralazine 10 mg PO Q12H 09/14/18 09/14/18 History metoprolol tartrate 50 mg PO BID 09/14/18 09/14/18 History Physical Exam Vital signs: Vital Signs 09/14/18 09:44 09/14/18 10:09 09/14/18 11:36 Temperature 98.3 F Pulse Rate 70 73 65 Respiratory Rate 22 20 Blood Pressure 117/61 Pulse Oximetry 94 L 100 09/14/18 12:00 09/14/18 15:55 09/14/18 16:00 Temperature 98.2 F 98.1 F Pulse Rate 68 70 75 Respiratory Rate 18 18 18 Blood Pressure 126/76 150/77 H Pulse Oximetry 96 95 09/14/18 20:00 09/14/18 20:18 09/15/18 00:00 Temperature 97.5 F L 98.0 F Pulse Rate 63 73 72 Respiratory Rate 18 16 Blood Pressure 139/83 114/78 Pulse Oximetry 97 94 L 98 09/15/18 03:26 09/15/18 04:00 09/15/18 07:59 Temperature 98.6 F Pulse Rate 75 75 75 Respiratory Rate 17 16 16 Blood Pressure 139/79 Pulse Oximetry 90 L 92 L 09/15/18 09:00 09/15/18 09:04 Temperature Pulse Rate Respiratory Rate 20 Blood Pressure Pulse Oximetry 99 93 L Intake & Output 09/14/18 09/15/18 09/15/18 18:59 06:59 18:59 Intake Total 495 / 495 Output Total 1350 / 1350 Balance -855 / -855 Weight 140.5 kg Intake: Oral 495 / 495 Output: Urine 1350 / 1350 Other: # Voids 1 # Urine Diapers 3 Date of Last Bowel Movement 09/13/18 Weight On Admission 140.5 kg - Constitutional no acute distress - Routine HEENT Exam Head: Present: normocephalic, atraumatic Eye: Present: EOMI, PERRL, normal accommodation ENT: Present: mucous membranes dry. Absent: mucous membranes moist - Routine Neck Exam Present: supple, full ROM. Absent: JVD - Routine Respiratory Exam Present: distant breath sounds, diminished air movement. Absent: accessory muscle use - Routine Cardiovascular Exam Present: RRR, S1, S2. Absent: murmur - Routine Abdominal Exam Present: soft, normoactive bowel sounds - Routine Exam Patient deferred: external exam, groin exam, perineal exam - Routine Extremities Exam Present: edema. Absent: cyanosis, clubbing - Routine Skin Exam Present: intact - Routine Neurological Exam Present: CN II-XII intact. Absent: alert, oriented X3 - Routine Psychiatric Exam Present: unable to assess Septic Shock Reassessment Septic shock perfusion: reassessment completed Assessment and Plan - Assessment and Plan Plan: Neuro/Psych: Anxiety disorder Chronic benzodiazepine use Patient is on midazolam drip to maintain RASS -1 Discontinuing lorazepam 1 mg twice daily/home medication Acetaminophen allergy documented CV: Paroxysmal atrial fibrillation currently normal sinus rhythm Congestive heart failure unknown etiology. Last echocardiogram EF 50-55% Elevated HDL Followed by cardiology And home on enalapril 5 mg daily, furosemide 20 mg daily metoprolol tartrate 50 mg twice daily. Continue home medication hydralazine 10 mg twice daily Currently holding enalapril 20 mg daily in light of hypotension post intubation Hold metoprolol tartrate 12 mg twice daily post intubation. Resume clinically indicated. Echocardiogram: 09/06/12 - ejection fraction of 50-55% with normal wall motion Myocardial perfusion scan: 09/07/12 - slight ischemia in the LAD distribution with an ejection fraction of 60 Resp: Acute respiratory failure with CO2 retention Obstructive sleep apnea -untreated Previous diagnosis of COPD Last PFT showed mild restrictive lung disease. No obstructive component Followed by pulmonology. Currently ipratropium aerosols every 4 hours scheduled Follow-up on post intubation chest x-ray and ABG GI: Gastroesophageal reflux disease Start tube feeding with Jevity 1.5 goal 50 cc an hour Famotidine for GI prophylaxis Docusate sodium/senna 1 tablet twice daily for bowel regimen : Coello catheter if indicated for accurate I's and O's in a critical patient Endo: Acute hyperglycemia Sliding scale insulin Accu-Cheks to maintain euglycemia aspart insulin every 6 hours low regimen Renal: Creatinine currently within normal limits Monitor urine output Accurate I's and O's Heme: Leukocytosis Normocytic anemia No indication for transfusion of blood products at this time. Monitor CBC daily. Follow trends. ID: Sputum influenza A and B ordered FEN: Replace electrolytes as clinically indicated per ICU likely protocol MSK: Elevated BMI Chronic low back pain Weight loss encouraged Access -Utilize peripheral IV. Central line if indicated Prophylaxis -GI -famotidine -DVT -SCD/enoxaparin Critical care time 35 minutes Code Status: Full code Discussed Condition With: vice president of talent management. PACU NURSE. Care plan discussed and all questions answered.
--- NOTE | 2018-09-15 09:24 | P.PNFP ---
Subjective Interval history: Nicolasa called this AM after patient was noted to be obtunded. Stat ABG remarkable for respiratory acidosis with marked CO2 retention , and with metabolic compensation. The patient was immediately transferred to the ICU, case discussed with legal researcher who emergently intubated the patient and placed on mechanical ventilation. I called the patient's daughter Riya Valencia and spoke via phone to update her on these events and the patient's current clinical condition. <Nasim Villanueva - 09/15/18 14:03> Results - Labs Result diagrams: 09/17/18 06:41 09/17/18 06:41 <Filomena Williamson - 09/17/18 17:31> Abnormal lab results 09/16/18 09/17/18 09/17/18 Range/Units 23:47 05:08 06:41 RBC 3.23 L (4.00-5.30) mil/mm3 Hgb 9.0 L (11.6-15.3) gm/dL Hct 28.2 L (35.0-46.0) % MCHC 31.8 L (32.0-36.0) % Neut % (Auto) 74.4 H (16.0-70.0) % Sodium (136-145) meq/L Potassium (3.5-5.1) meq/L BUN (7-18) mg/dL Creatinine (0.50-1.00) mg/dL Estimated GFR (>89) mL/min POC Glucose 121 H 120 H (68-110) mg/dl Random Glucose (74-106) mg/dL Calcium (8.5-10.1) mg/dL Phosphorus (2.5-4.9) mg/dL 09/17/18 09/17/18 09/17/18 Range/Units 06:41 12:06 17:09 RBC (4.00-5.30) mil/mm3 Hgb (11.6-15.3) gm/dL Hct (35.0-46.0) % MCHC (32.0-36.0) % Neut % (Auto) (16.0-70.0) % Sodium 146 H (136-145) meq/L Potassium 3.1 L (3.5-5.1) meq/L BUN 26 H (7-18) mg/dL Creatinine 1.79 H (0.50-1.00) mg/dL Estimated GFR 29 L (>89) mL/min POC Glucose 131 H 125 H (68-110) mg/dl Random Glucose 120 H (74-106) mg/dL Calcium 7.9 L (8.5-10.1) mg/dL Phosphorus 2.4 L D (2.5-4.9) mg/dL Short CBC 09/17/18 Range/Units 06:41 WBC 9.3 (4.0-11.0) th/mm3 Hgb 9.0 L (11.6-15.3) gm/dL Hct 28.2 L (35.0-46.0) % Plt Count 182 (150-450) th/mm3 BMP 09/17/18 06:41 Sodium 146 H Potassium 3.1 L Chloride 106 Carbon Dioxide 30.8 BUN 26 H Creatinine 1.79 H Calcium 7.9 L <Filomena Williamson - 09/17/18 17:31> Abnormal lab results 09/14/18 09/14/18 09/15/18 Range/Units 11:02 18:30 05:01 WBC 11.8 H (4.0-11.0) th/mm3 RBC 3.96 L (4.00-5.30) mil/mm3 Hgb 11.1 L (11.6-15.3) gm/dL Hct 34.7 L (35.0-46.0) % MCHC 31.8 L (32.0-36.0) % O2 Saturation 89 L* (90-100) % ABG pH 7.32 L (7.380-7.420) ABG pCO2 87 H* (38-42) mmHg ABG HCO3 44 H (22-26) mmol/L ABG Base Excess 16.8 H (-2-2) mmol/L Hemoglobin (12.0-16.0) G/DL Chloride (98-107) meq/L Carbon Dioxide (21.0-32.0) meq/L Estimated GFR (>89) mL/min POC Glucose (68-110) mg/dl Random Glucose (74-106) mg/dL Urine Mucus Few H (Occasional) /lpf 09/15/18 09/15/18 09/15/18 Range/Units 05:01 08:05 08:06 WBC (4.0-11.0) th/mm3 RBC (4.00-5.30) mil/mm3 Hgb (11.6-15.3) gm/dL Hct (35.0-46.0) % MCHC (32.0-36.0) % O2 Saturation 89 L* (90-100) % ABG pH 7.17 L* (7.380-7.420) ABG pCO2 130 H* (38-42) mmHg ABG HCO3 46 H (22-26) mmol/L ABG Base Excess 16.8 H (-2-2) mmol/L Hemoglobin 11.1 L (12.0-16.0) G/DL Chloride 94 L (98-107) meq/L Carbon Dioxide 43.2 H (21.0-32.0) meq/L Estimated GFR 59 L (>89) mL/min POC Glucose 122 H (68-110) mg/dl Random Glucose 133 H (74-106) mg/dL Urine Mucus (Occasional) /lpf Short CBC 09/15/18 Range/Units 05:01 WBC 11.8 H (4.0-11.0) th/mm3 Hgb 11.1 L (11.6-15.3) gm/dL Hct 34.7 L (35.0-46.0) % Plt Count 282 (150-450) th/mm3 BMP 09/15/18 05:01 Sodium 142 Potassium 3.6 Chloride 94 L Carbon Dioxide 43.2 H BUN 17 Creatinine 0.95 Calcium 9.1 Urine 09/14/18 Range/Units 11:02 Urine Color Straw (Yellw/Straw) Urine Clarity Clear (Clear) Urine pH 5.0 (5.0-8.5) Ur Specific [place] 1.006 (1.002-1.035) Urine Protein Negative (Neg-Trace) mg/dL Urine Glucose (UA) Negative (Negative) mg/dL <Nasim Villanueva - 09/15/18 09:24> Physical Exam Vital signs: Vital Signs 09/16/18 17:30 09/16/18 17:45 09/16/18 18:00 Temperature Pulse Rate 67 69 73 Respiratory Rate 20 23 18 Blood Pressure 102/57 L 104/57 L 105/63 Pulse Oximetry 96 96 96 09/16/18 18:30 09/16/18 19:00 09/16/18 19:30 Temperature Pulse Rate 71 76 78 Respiratory Rate 21 25 H 31 H Blood Pressure 111/64 111/71 102/65 Pulse Oximetry 98 98 96 09/16/18 20:00 09/16/18 20:30 09/16/18 20:59 Temperature 100.2 F H Pulse Rate 73 71 69 Respiratory Rate 29 H 21 16 Blood Pressure 106/55 L 101/68 Pulse Oximetry 97 97 09/16/18 21:00 09/16/18 21:30 09/16/18 22:00 Temperature Pulse Rate 70 67 67 Respiratory Rate 24 27 H 20 Blood Pressure 102/62 93/60 L 95/59 L Pulse Oximetry 97 97 97 09/16/18 22:30 09/16/18 23:00 09/16/18 23:30 Temperature 100 F H Pulse Rate 66 66 66 Respiratory Rate 26 H 20 22 Blood Pressure 91/54 L 95/56 L 88/61 L Pulse Oximetry 97 97 96 09/17/18 00:00 09/17/18 00:08 09/17/18 00:30 Temperature Pulse Rate 77 73 72 Respiratory Rate 24 16 16 Blood Pressure 135/77 103/66 Pulse Oximetry 97 98 98 09/17/18 01:00 09/17/18 01:30 09/17/18 02:00 Temperature Pulse Rate 70 98 H 66 Respiratory Rate 20 23 18 Blood Pressure 105/63 109/69 100/56 L Pulse Oximetry 98 97 96 09/17/18 02:30 09/17/18 03:00 09/17/18 03:55 Temperature Pulse Rate 65 65 66 Respiratory Rate 16 19 16 Blood Pressure 96/58 L 100/69 108/66 Pulse Oximetry 96 96 98 09/17/18 04:00 09/17/18 04:12 09/17/18 04:30 Temperature 99.9 F H Pulse Rate 66 66 63 Respiratory Rate 21 16 30 H Blood Pressure 107/67 102/68 Pulse Oximetry 98 98 98 09/17/18 05:00 09/17/18 05:30 09/17/18 06:00 Temperature Pulse Rate 59 L 55 L 53 L Respiratory Rate 38 H 36 H 41 H Blood Pressure 128/69 131/67 132/70 Pulse Oximetry 98 97 97 09/17/18 06:30 09/17/18 07:00 09/17/18 07:30 Temperature Pulse Rate 53 L 54 L 51 L Respiratory Rate 34 H 16 36 H Blood Pressure 136/74 138/73 136/71 Pulse Oximetry 97 97 97 09/17/18 08:00 09/17/18 08:30 09/17/18 09:00 Temperature 98.4 F Pulse Rate 52 L 54 L 56 L Respiratory Rate 16 16 16 Blood Pressure 136/70 133/69 128/69 Pulse Oximetry 97 97 97 09/17/18 09:30 09/17/18 10:00 09/17/18 10:30 Temperature Pulse Rate 62 59 L 49 L Respiratory Rate 16 16 16 Blood Pressure 141/78 H 151/89 H 136/71 Pulse Oximetry 98 99 97 09/17/18 11:00 09/17/18 11:30 09/17/18 12:00 Temperature 99 F Pulse Rate 50 L 52 L 51 L Respiratory Rate 16 36 H 34 H Blood Pressure 138/69 138/78 149/70 H Pulse Oximetry 98 97 98 09/17/18 12:30 09/17/18 13:00 09/17/18 13:30 Temperature Pulse Rate 56 L 50 L 86 Respiratory Rate 33 H 35 H 23 Blood Pressure 145/85 H 146/77 H 225/98 H Pulse Oximetry 98 98 97 09/17/18 13:32 09/17/18 13:52 09/17/18 14:00 Temperature Pulse Rate 61 46 L 48 L Respiratory Rate 19 25 H 33 H Blood Pressure 194/92 H 162/71 H 147/86 H Pulse Oximetry 99 98 98 09/17/18 15:00 09/17/18 15:55 09/17/18 16:00 Temperature 97.8 F Pulse Rate 67 63 Respiratory Rate 21 15 18 Blood Pressure 142/65 H 151/78 H Pulse Oximetry 97 99 100 Intake & Output 09/16/18 09/17/18 09/17/18 18:59 06:59 18:59 Intake Total 2340 / 2340 1100 / 1100 1100 / 1100 Output Total 300 / 300 300 / 300 Balance 2040 / 2040 800 / 800 1100 / 1100 Weight 143.2 kg Intake: IV 2340 / 2340 1100 / 1100 1100 / 1100 Precedex Inj 200 MCG In NS Inj 100 / 100 100 / 100 48 ML @ 0.1 MCG/KG/HR 3.51 mls/ hr IV.CONT TITRATE PRN Rx#: [id number] Versed Inj 100 mg In 100 ml @ 2 80 / 80 MG/HR 2 mls/hr IV.CONT TITRATE PRN Rx#:[id number] NS Inj 1,000 ML @ 84 mls/hr IV. 1000 / 1000 1000 / 1000 1000 / 1000 CONT .[id number] PABLO Rx#:[id number] Potassium Phosphate Inj 30 MMOL 260 / 260 In NS Inj 250 ML @ 42 mls/hr IV.SIG UNSCH PRN Rx#:[id number] NS Inj 2,000 ML @ Wide Open IV. 1000 / 1000 SIG BOLUS ONE Rx#:[id number] Tube Feeding 0 / 0 Output: Urine 0 / 0 Urine Amount (Catheter) 300 / 300 300 / 300 Indwelling Urethral Catheter 300 / 300 Straight 300 / 300 Other: # Voids 0 # Urine Diapers 0 Date of Last Bowel Movement 09/13/18 09/13/18 09/13/18 # Bowel Movements 0 0 <Filomena Williamson - 09/17/18 17:31> Vital Signs 09/14/18 09:44 09/14/18 10:09 09/14/18 11:36 Temperature 98.3 F Pulse Rate 70 73 65 Respiratory Rate 22 20 Blood Pressure 117/61 Pulse Oximetry 94 L 100 09/14/18 12:00 09/14/18 15:55 09/14/18 16:00 Temperature 98.2 F 98.1 F Pulse Rate 68 70 75 Respiratory Rate 18 18 18 Blood Pressure 126/76 150/77 H Pulse Oximetry 96 95 09/14/18 20:00 09/14/18 20:18 09/15/18 00:00 Temperature 97.5 F L 98.0 F Pulse Rate 63 73 72 Respiratory Rate 18 16 Blood Pressure 139/83 114/78 Pulse Oximetry 97 94 L 98 09/15/18 03:26 09/15/18 04:00 09/15/18 07:59 Temperature 98.6 F Pulse Rate 75 75 75 Respiratory Rate 17 16 16 Blood Pressure 139/79 Pulse Oximetry 90 L 92 L 09/15/18 09:00 09/15/18 09:04 Temperature Pulse Rate Respiratory Rate 20 Blood Pressure Pulse Oximetry 99 93 L Intake & Output 09/14/18 09/15/18 09/15/18 18:59 06:59 18:59 Intake Total 495 / 495 Output Total 1350 / 1350 Balance -855 / -855 Weight 140.5 kg Intake: Oral 495 / 495 Output: Urine 1350 / 1350 Other: # Voids 1 # Urine Diapers 3 Date of Last Bowel Movement 09/13/18 Weight On Admission 140.5 kg <[address] - 09/15/18 09:24> Narrative: GENERAL: Intubated on [facility] vent SKIN: Warm and dry. HEAD: Atraumatic. Normocephalic. EYES: Pupils equal and round. No scleral icterus. No injection or drainage. NECK: Trachea midline. No JVD. CARDIOVASCULAR: Regular rate and rhythm. No murmur appreciated. RESPIRATORY: Breath sounds are equal and clear bilaterally with good air movement status post intubation GASTROINTESTINAL: Abdomen soft, nondistended MUSCULOSKELETAL: No obvious deformities. Early venous stasis changes noted bilaterally. Bilateral 1+ pitting pre-tibial edema <[address] 09/15/18 11:01> Assessment and Plan - Assessment (1) Acute respiratory failure Code(s): J96.00 - Acute respiratory failure, unspecified whether with hypoxia or hypercapnia Status: Acute (2) RAD (obstructive sleep apnea) Code(s): G47.33 - Obstructive sleep apnea (adult) (pediatric) Status: Acute (3) CHF exacerbation Code(s): I50.9 - Heart failure, unspecified Status: Acute (4) Hypertension Code(s): I10 - Essential (primary) hypertension Status: Acute (5) COPD (chronic obstructive pulmonary disease) Code(s): J44.9 - Chronic obstructive pulmonary disease, unspecified Status: Acute (6) GERD (gastroesophageal reflux disease) Code(s): K21.9 - Gastro-esophageal reflux disease without esophagitis Status: Acute (7) Afib Code(s): I48.91 - Unspecified atrial fibrillation Status: Acute (8) Anxiety Code(s): F41.9 - Anxiety disorder, unspecified Status: Acute (9) Tremors of nervous system Code(s): R25.1 - Tremor, unspecified Status: Acute (10) Chronic back pain Code(s): M54.9 - Dorsalgia, unspecified; G89.29 - Other chronic pain Status: Acute (11) Anemia Code(s): D64.9 - Anemia, unspecified Status: Acute (12) KIKE (acute kidney injury) Code(s): N17.9 - Acute kidney failure, unspecified Status: Acute <Filomena Williamson - 09/17/18 17:31> (1) Acute respiratory failure Code(s): J96.00 - Acute respiratory failure, unspecified whether with hypoxia or hypercapnia Status: Acute (2) RAD (obstructive sleep apnea) Code(s): G47.33 - Obstructive sleep apnea (adult) (pediatric) Status: Acute (3) CHF exacerbation Code(s): I50.9 - Heart failure, unspecified Status: Acute (4) Hypertension Code(s): I10 - Essential (primary) hypertension Status: Acute (5) COPD (chronic obstructive pulmonary disease) Code(s): J44.9 - Chronic obstructive pulmonary disease, unspecified Status: Acute (6) GERD (gastroesophageal reflux disease) Code(s): K21.9 - Gastro-esophageal reflux disease without esophagitis Status: Acute (7) Afib Code(s): I48.91 - Unspecified atrial fibrillation Status: Acute (8) Anxiety Code(s): F41.9 - Anxiety disorder, unspecified Status: Acute (9) Tremors of nervous system Code(s): R25.1 - Tremor, unspecified Status: Acute (10) Chronic back pain Code(s): M54.9 - Dorsalgia, unspecified; G89.29 - Other chronic pain Status: Acute (11) Anemia Code(s): D64.9 - Anemia, unspecified Status: Acute <ElyNasim Morrison - 09/15/18 13:54> - Assessment and Plan 63-year-old female presented with shortness of breath presumed to be due to CHFpEF but likely related to her chronic obstructive sleep apnea. The patient was noted to be obtunded this morning with acute respiratory failure and marked CO2 retention requiring emergent intubation with mechanical ventilation. Acute respiratory failure -s/p emergent intubation 09/15 AM -Critical care has been consulted --Continue mechanical ventilation --Started on midazolam drip, discontinued home lorazepam Obstructive sleep apnea with obesity hypoventilation syndrome -Plan as above -Patient has been refusing CPAP/BiPAP and had reported on day of admission extreme claustrophobia and anxiety when previously trying these therapies -Pulmonology consulted, appreciate recommendations. Patient known to Dr. House -May benefit from nasal prongs if the patient continues to not be interested in CPAP -Continue discussion with patient's daughter regarding need for treatment of this issue. Discussed at length with family consideration for tracheostomy if the patient is unwilling to try CPAP again as she needs treatment for her severe RAD CHF exacerbation -Presumed exacerbation of CHF, diastolic dysfunction -Symptoms are more related towards the patients chronic and untreated RAD -BNP equivocal at 108 on admission -Fluid restrict to 1500 mL of fluid daily -Monitor strict I/O's -Cardiology consulted, appreciate recommendations -Continue Lasix 40 mg IV twice daily -Spiriva nebulizer 0.5 mg twice daily schedule - patient reports allergy to albuterol -Continue home sotalol Hypertension -Monitor vital signs -Hold home BP medications given low borderline blood pressure with sedation COPD -The patient carries a diagnosis of COPD per chart review -Possible heavy secondhand smoke exposure or symptoms all stemming from RAD Anemia -Patient has chronic anemia -Currently stable, continue to monitor Anxiety -Holding home lorazepam 1 mg p.o. twice daily scheduled GERD -On famotidine for ppx Chronic back pain/arthritis -Allergic to multiple pain medications including ibuprofen and Tylenol, not on any pain medications at home -Consider alternative therapies if needed -PT evaluate and treat while in the hospital FEN/ppx -Diet: Tube feeds with Jevity 1.5 kcal goal of 55 mL/hr -DVT ppx: Lovenox -GI ppx: Famotidine <Nasim Villanueva - 09/15/18 14:03> - Attending Attestation The exam, history, and the medical decision-making described in the above note were completed with the assistance of the resident physician. I reviewed and agree with the findings presented. I attest that I had a [id number] encounter with the patient on the same day, and personally performed and documented my assessment and findings in the medical record. sadly, her sleep apnea is extremely bad at this point. her ventilator has given her a good airway. I spoke to her family- daughter, daughter in law, 2 granddaughters and boyfriend. explained that her sleep apnea is at the point where she may very well end up with a trach. she has terrible panic attacks and can't stand any mask but a trach would not be on her face and hopefully would not cause a panic attack <Filomena Williamson - 09/17/18 17:31>
--- NOTE | 2018-09-15 09:40 | XR ---
EXAM DATE: 09/15/2018 9:34 AM EST AGE/SEX: 63 years / Female INDICATIONS: Post intubation. Evaluate ET tube placement. CLINICAL DATA: This is the patient's subsequent encounter. Patient reports that signs and symptoms h ave been present for 1 day and indicates a pain score of Nonresponsive. MEDICAL/SURGICAL HISTORY: Chronic obstructive pulmonary disease. Hypertension. Mastectomy, arlene ateral. [place] [facility] [place]. . FINDINGS: Interval placement of a tracheal tube with the tip 3.3 cm above the alyssa. Gastric tube traverses th e [id number]. Stable marked elevation left hemidiaphragm. The lungs are clear. The heart is stable in configuration. CONCLUSION: ET tube in good position. Electronically signed by: Matty Chicas MD Board Certified Radiologist 09/15/2018 9:38 AM EST
[2018-09-15] MEDS: hydrALAZINE 10 MG Tablet PO SCH (09:41)
[2018-09-15] MEDS: LORazepam 1 MG Tablet PO SCH (09:42)
--- NOTE | 2018-09-15 09:44 | P.PCN ---
Date of procedure: 09/15/18 Pre-op diagnosis: Acute respiratory failure Post-op diagnosis: same Procedure: DATE: 09/15/2018 PROCEDURE: Orotracheal intubation INDICATION: Obtunded/CO2 retention DETAILS OF PROCEDURE The patient was placed in optimal position and preoxygenated with 100% FiO2 via bag valve mask. At the start oxygen saturation was 94%. The patient was administered 20 milligrams etomidate IV. I entered the oropharynx with a size 4 laryngoscope blade and obtained a grade 2 view of the airway. On single attempt a size 8.0 cuffed endotracheal tube was passed through the vocal cords. Correct tube location was confirmed with end tidal CO2 detector and by auscultating over bilateral lung brock. The endotracheal tube was secured with adhesive tape at a depth of 24 cm at the lips. The patient was connected to the ventilator. The patient tolerated the procedure well without any apparent complications. Oxygen saturations were maintained greater than 95% all times. STAT chest x-ray adequate positioning of ET tube..
[2018-09-15] MEDS ORDERED: Dextrose 50% in Water 50 ML Vial IV.PUSH PRN (10:01)
[2018-09-15] MEDS ORDERED: Potassium Chlor 20 mEq Premix 20 MEQ/100 ML PIGGYBACK IV.SIG PRN (10:02)
[2018-09-15] MEDS ORDERED: Magnesium Oxide 400 MG Tablet PO PRN (10:02)
[2018-09-15] MEDS ORDERED: Potassium Chloride Liq 20 MEQ/15 ML UDC PO PRN (10:02)
[2018-09-15] MEDS ORDERED: Potassium Phosphate 500 MG Soluble Tablet PO PRN (10:02)
[2018-09-15] MEDS ORDERED: Sodium Phosphate Inj 30 MMOL in Sodium Chlor 0.9% Inj 250 ML IV.SIG PRN (10:02)
[2018-09-15] MEDS ORDERED: Magnesium Sulfate Inj 2 GM in Sodium Chlor 0.9% Inj 96 ML IV.SIG PRN (10:02)
[2018-09-15] MEDS ORDERED: Potassium Chlor 40 mEq Premix 40 MEQ/100 ML PIGGYBACK IV.SIG PRN ×2 (10:02)
[2018-09-15] MEDS ORDERED: Magnesium Sulfate Inj 4 GM in Sodium Chlor 0.9% Inj 92 ML IV.SIG PRN (10:02)
[2018-09-15] MEDS: Senna/Docusate Sodium 8.6/50 MG Tablet PO SCH ×2 (10:11→22:37)
[2018-09-15] MEDS: Enoxaparin Inj 40 MG/0.4 ML Syringe SQ SCH (10:11)
[2018-09-15] MEDS: Famotidine 20 MG Tablet PO SCH (10:12)
[2018-09-15] MEDS: Simethicone 125 MG Chew Tablet PO SCH (10:12)
[2018-09-15 10:16] LABS: ABG Base Excess 15.2 mmol/L (-2-2); ABG PCO2 80 mmHg (38-42); ABG PO2 74 mmHG (61-120)
[2018-09-15 10:58] LABS: Calcium 8.7 mg/dL (8.5-10.1); Carbon Dioxide 40.9 meq/L (21.0-32.0); Potassium 3.5 meq/L (3.5-5.1)
--- NOTE | 2018-09-15 11:50 | P.DIET ---
Nutritional Evaluation Type of nutrition evaluation: initial Nutrition consult regarding: Tube Feeding Screening comments: 09/15/18 TF review Subjective Subjective Comments: Assessment here uses guidelines for critically ill patients from [employer] and [employer]. Per family medicine H&P pt had gained 45lb in 3-4months even though she had not been eating as much as usual. Objective - Diagnosis CHF exacerbation - Objective Body Mass Index: 50.0 % IBW: 218 (IBW = 142lb) Body Weight Used for Calculations: IBW Energy Needs - Lower Range (kCal/kg): 22 Energy Needs - Upper Range (kCal/kg): 25 Lower Limit kCal/kg (kCals): 1,421 Upper Limit kCal/kg (kCals): 1,615 Lower Limit Protein Factor (Grams per Kg): 2.0 Upper Limit Protein Factor (Grams per Kg): 2.5 Lower Protein Needs (Protein): 129 Upper Protein Needs (Protein): 162 Dietitian Reviewed in Medical Record: Curent medications, Intake & Output, Labs , Medical history, Tube feeding Diet Order: NPO, TF'ing Objective Comments: PMH: Afib, CHF, HTN Labs: estGFR 59, POC glucose 122 LBM 09/13/18 Assessment Assessment: Pt currently intubated and on mech vent. Pt was previously on a cardiac diet and consumed around 75% of most meals. Pt now on TF'ing of Jevity 1.5 w/ 55mL/ hr as goal rate per MD. RD to recommend Vital High Protein @ 65mL/hr to provide 1560kcal, 137g of protein, and 1304mL of free water to best meet pts nutritional needs. Continue to monitor TF tolerance. Labs reviewed, dietitian following. Recommendations: 1. RD to recommend Vital High Protein @ 65mL/hr to best meet pts nutritional needs 2. Continue to monitor TF tolerance 3. Dietitian following Dietitian to Monitor: Lab values, Glucose level, Intake & Output, Tube feeding tolerance, Weight change, Medical course
[2018-09-15] MEDS: Artificial Tears Opth Drops 15 ML Bottle EACH EYE SCH ×2 (12:09→18:31)
[2018-09-15] MEDS: Insulin NovoLOG Aspart Correctional Sugar Inj SQ SCH ×2 (14:51→17:19)
[2018-09-15] MEDS: Oral Hygiene Kit OROPHARYNG SCH ×2 (15:34→17:16)
[2018-09-15] MEDS ORDERED: Albumin Human 25% Inj 100 ML IV.SIG ONE (17:03)
[2018-09-15] MEDS: Sod Chloride 0.9% Inj 1,000 ML IV.CONT SCH (17:16)
[2018-09-15] MEDS: Chlorhexidine 0.12% Oral Kit 15 ML UDC OROPHARYNG SCH (22:36)
[2018-09-15] MEDS: Famotidine PF Inj 20 MG/2 ML Vial IV.PUSH SCH (22:37)
[2018-09-16] MEDS: Oral Hygiene Kit OROPHARYNG SCH ×4 (00:26→17:45)
[2018-09-16] MEDS: Insulin NovoLOG Aspart Correctional Sugar Inj SQ SCH ×4 (00:28→17:47)
[2018-09-16] MEDS: Artificial Tears Opth Drops 15 ML Bottle EACH EYE SCH ×3 (03:36→17:46)
[2018-09-16 05:46] LABS: ABG Base Excess 15.1 mmol/L (-2-2); ABG PCO2 35 mmHg (38-42); ABG PO2 75 mmHG (61-120)
[2018-09-16] MEDS: Sod Chloride 0.9% Inj 1,000 ML IV.CONT SCH ×2 (06:19→17:45)
[2018-09-16 07:22] LABS: Baso % (Auto) 0.2 % (0.0-2.0); Eos # (Auto) 0.2 th/mm3 (0.0-0.4); Eos % (Auto) 1.6 % (0.0-4.0); Hematocrit 30.2 % (35.0-46.0); Hemoglobin 9.6 gm/dL (11.6-15.3); Lymph # (Auto) 1.4 th/mm3 (1.0-4.8); Lymph % (Auto) 14.6 % (9.0-44.0); Mean Corpuscular Hemoglobin 27.6 pg (27.0-34.0); Mean Corpuscular Volume 86.4 fL (80.0-100.0); Mean Platelet Volume 8.3 fL (7.0-11.0); Mono % (Auto) 10.3 % (0.0-8.0); Neut # (Auto) 7.2 th/mm3 (1.8-7.7); Neut % (Auto) 73.3 % (16.0-70.0); Platelet Count 217 th/mm3 (150-450); Red Blood Count 3.49 mil/mm3 (4.00-5.30); Red Cell Distribution Width 15.5 % (11.6-17.2); White Blood Count 9.9 th/mm3 (4.0-11.0)
[2018-09-16 08:02] LABS: Anion Gap 5 meq/L (5-15); Aspartate Aminotransferase 22 U/L (15-37); Blood Urea Nitrogen 28 mg/dL (7-18); Calcium 8.6 mg/dL (8.5-10.1); Carbon Dioxide 41.2 meq/L (21.0-32.0); Chloride 98 meq/L (98-107); Glomerular Filtration Rate 22 mL/min (>89); Glucose,Random 135 mg/dL (74-106); Magnesium 2.1 mg/dL (1.5-2.5); Potassium 3.1 meq/L (3.5-5.1); Sodium 144 meq/L (136-145)
[2018-09-16 08:04] LABS: Alanine Aminotransferase 12 U/L (10-53); Alkaline Phosphatase 86 U/L (45-117); Phosphorus 0.7 mg/dL (2.5-4.9); Total Protein 6.5 g/dL (6.4-8.2)
[2018-09-16] MEDS: Famotidine PF Inj 20 MG/2 ML Vial IV.PUSH SCH ×2 (08:06→21:48)
[2018-09-16] MEDS: Senna/Docusate Sodium 8.6/50 MG Tablet PO SCH ×2 (08:06→21:49)
[2018-09-16] MEDS: Enoxaparin Inj 40 MG/0.4 ML Syringe SQ SCH (08:06)
[2018-09-16] MEDS: Chlorhexidine 0.12% Oral Kit 15 ML UDC OROPHARYNG SCH ×2 (08:06→20:41)
[2018-09-16] MEDS ORDERED: Sod Chloride 0.9% Inj 2,000 ML IV.SIG ONE (08:29)
--- NOTE | 2018-09-16 08:35 | P.PNCA ---
Subjective Interval history: On vent Medications and Allergies Active Medications: Active Medications Al Hydroxide/Mg Hydroxide (Milk Of Magnayla Liq) 30 ml PO Q12H PRN PRN Reason: Mild Constipation Artificial Tears (Tears Naturale Opth Drops) 1 drop EACH EYE Q8H [facility] Last Admin: 09/16/18 03:36 Dose: 1 drop Aspirin (Aspirin Chew) 81 mg PO DAILY [facility] Last Admin: 09/16/18 08:06 Dose: 81 mg Bisacodyl (Dulcolax Supp) 10 mg RECTAL DAILY PRN PRN Reason: SEVERE CONSITIPATION Chlorhexidine Gluconate (Peridex 0.12% Oral Kit) 15 ml OROPHARYNG BID@0800, 2000 [facility] Last Admin: 09/16/18 08:06 Dose: 15 ml Dextrose (D50w Vial) 50 ml IV.PUSH UNSCH PRN PRN Reason: PER HYPOGLYCEMIA PROTOCOL Enoxaparin Sodium (Lovenox Inj) 40 mg SQ Q24H [facility] Last Admin: 09/16/18 08:06 Dose: 40 mg Famotidine (Pepcid Pf Inj) 20 mg IV.PUSH Q12HR [facility] Last Admin: 09/16/18 08:06 Dose: 20 mg Fluticasone Propionate (Flonase Nasal [place]) 1 spray NASAL DAILY PRN PRN Reason: NASAL CONGESTION Glucagon (Glucagon Inj) 1 mg OTHER PRN PRN PRN Reason: for Hypoglycemia Protocol Hydralazine HCl (Apresoline) 10 mg PO BID [facility] Last Admin: 09/15/18 09:41 Dose: Not Given Midazolam HCl (Versed Inj) 100 mg in 100 mls @ 2 mls/hr IV.CONT TITRATE PRN; Protocol PRN Reason: See protocol Last Titration: 09/15/18 15:35 Dose: 3 mg/hr, 3 mls/hr Magnesium Sulfate 4 gm/ Sodium (Chloride) 100 mls @ 50 mls/hr IV.SIG UNSCH PRN PRN Reason: For Magnesium 0.9 - 1.1 mg/dL Magnesium Sulfate 2 gm/ Sodium (Chloride) 100 mls @ 50 mls/hr IV.SIG UNSCH PRN PRN Reason: For Magnesium 1.2 - 1.6 mg/dL Potassium Chloride (Kcl 40 Meq Premix Inj) 40 meq in 100 mls @ 25 mls/hr IV.SIG Q2H PRN PRN Reason: For Potassium 2.8 - 3.2 mEq/L Potassium Chloride (Kcl 20 Meq Premix Inj) 20 meq in 100 mls @ 50 mls/hr IV.SIG Q2H PRN PRN Reason: For Potassium 3.3 - 3.5 mEq/L Potassium Chloride (Kcl 40 Meq Premix Inj) 40 meq in 100 mls @ 25 mls/hr IV.SIG UNSCH PRN PRN Reason: For Potassium 3.3 - 3.5 mEq/L Potassium Chloride (Kcl 20 Meq Premix Inj) 20 meq in 100 mls @ 50 mls/hr IV.SIG Q2H PRN PRN Reason: For Potassium 2.8 - 3.2 mEq/L Potassium Phosphate 30 mmol/ (Sodium Chloride) 260 mls @ 42 mls/hr IV.SIG UNSCH PRN PRN Reason: SEE LABEL COMMENTS Sodium Phosphate 30 mmol/ (Sodium Chloride) 260 mls @ 42 mls/hr IV.SIG UNSCH PRN PRN Reason: For Phosphorus < 2.5 mg/dL Sodium Chloride (Ns Inj) 1,000 mls @ 84 mls/hr IV.CONT .[id number] [facility] Last Admin: 09/16/18 06:19 Dose: 84 mls/hr Dexmedetomidine HCl 200 mcg/ (Sodium Chloride) 50 mls @ 7.02 mls/hr IV.CONT TITRATE PRN; Protocol PRN Reason: Per Protocol Sodium Chloride (Ns Inj) 2,000 mls @ 0 mls/hr IV.SIG BOLUS ONE Stop: 09/16/18 08:30 Insulin Aspart (Novolog Insulin Correctional Sugar Inj) 0 unit SQ Q6HR PABLO; Protocol Last Admin: 09/16/18 06:19 Dose: Not Given Ipratropium [place] (Atrovent Neb) 0.5 mg NEB Q4HR NEB [facility] Last Admin: 09/16/18 08:02 Dose: 0.5 mg Lactulose (Lactulose Liq) 30 ml PO DAILY PRN PRN Reason: SEVERE CONSITIPATION Magnesium Oxide (Mag-Ox) 800 mg PO UNSCH PRN PRN Reason: For Magnesium 1.2 - 1.6 mg/dL Miscellaneous (Pill Splitter) 1 each OTHER UNSCH PRN PRN Reason: SEE LABEL COMMENTS Miscellaneous Medication () 1 each OROPHARYNG 0000,0400,1200,1600 [facility] Last Admin: 09/16/18 03:36 Dose: 1 each Potassium Chloride (Kcl Liq) 40 meq PO UNSCH PRN PRN Reason: Potassium level 3.3-3.5 mEq/L Potassium Chloride (Kcl Liq) 40 meq PO UNSCH PRN PRN Reason: POTASSIUM LESS THAN 3.5 Potassium Phosphate (K-Phos Original) 2,000 mg PO UNSCH PRN PRN Reason: SEE LABEL COMMENTS Potassium Phosphate (K-Phos Original) 2,000 mg PO Q4H PRN PRN Reason: Phosphorus Less Than 2.5 mg/dL Senna/Docusate Sodium (Eulalia-Colace) 1 tab PO BID [facility] Last Admin: 09/16/18 08:06 Dose: 1 tab Sennosides (Senokot) 17.2 mg PO Q12H PRN PRN Reason: Moderate Constipation Simethicone (Phazyme Chew) 125 mg PO DAILY [facility] Last Admin: 09/15/18 10:12 Dose: Not Given Sodium Chloride (Ns Flush) 2 ml IV.FLUSH BID [facility] Last Admin: 09/16/18 08:06 Dose: 2 ml Sodium Chloride (Ns Flush) 2 ml IV.FLUSH UNSCH PRN PRN Reason: FLUSH AFTER USING IV ACCESS Sotalol HCl (Betapace) 80 mg PO BID [facility] Last Admin: 09/16/18 08:09 Dose: Not Given Allergies Allergy/AdvReac Type Severity Reaction Status Date / Time acetaminophen Allergy Severe Tachycardia, Verified 09/14/18 02:45 swelling hydrocodone Allergy Severe Tachycardia, Verified 09/14/18 02:45 swelling ibuprofen Allergy Severe Swelling Verified 09/14/18 02:45 morphine Allergy Severe Swelling Verified 09/14/18 02:45 propoxyphene Allergy Severe Swelling Verified 09/14/18 02:45 albuterol Allergy Intermediate Tachycardia Verified 09/14/18 02:45 amoxicillin Allergy Unknown Atrial Verified 09/14/18 02:45 Fibrillation codeine Allergy Unknown UNKNOWN Verified 09/14/18 02:45 sertraline Allergy Unknown UNKNOWN Verified 09/14/18 02:45 pantoprazole AdvReac Unknown Nausea/Vomi Verified 09/14/18 02:45 ting INHALERS FOR COPD (ALL) Allergy Severe PALPITATION Uncoded 09/14/18 02:45 S/DIAPHORES IS VICOPROFEN Allergy Severe Swelling Uncoded 09/14/18 02:45 "ANY PAIN PILLS" AdvReac Severe AFIB Uncoded 09/14/18 02:45 Home Medications Medication Instructions Recorded Confirmed Type enalapril maleate 5 mg PO DAILY 09/14/18 09/14/18 History furosemide [Lasix] 20 mg PO DAILY 09/14/18 09/14/18 History hydralazine 10 mg PO Q12H 09/14/18 09/14/18 History metoprolol tartrate 50 mg PO BID 09/14/18 09/14/18 History Physical Exam Vital signs: Vital Signs 09/15/18 09:00 09/15/18 09:04 09/15/18 10:00 Temperature Pulse Rate 61 Respiratory Rate 20 32 H Blood Pressure 151/65 H Pulse Oximetry 99 93 L 100 09/15/18 11:00 09/15/18 12:00 09/15/18 12:09 Temperature 97.9 F Pulse Rate 73 70 68 Respiratory Rate 22 24 22 Blood Pressure 81/46 L 98/57 L Pulse Oximetry 100 100 100 09/15/18 13:00 09/15/18 14:00 09/15/18 15:00 Temperature Pulse Rate 74 77 83 Respiratory Rate 22 22 23 Blood Pressure 88/53 L 105/58 L 117/55 L Pulse Oximetry 99 100 97 09/15/18 16:00 09/15/18 16:52 09/15/18 17:00 Temperature 99 F Pulse Rate 84 80 90 Respiratory Rate 22 22 22 Blood Pressure 100/51 L 108/71 Pulse Oximetry 99 100 94 L 09/15/18 17:31 09/15/18 18:00 09/15/18 18:31 Temperature Pulse Rate 95 H 88 87 Respiratory Rate 28 H 20 20 Blood Pressure 114/49 L 94/51 L Pulse Oximetry 96 100 100 09/15/18 19:00 09/15/18 19:30 09/15/18 20:00 Temperature 99.4 F Pulse Rate 81 87 87 Respiratory Rate 20 20 20 Blood Pressure 101/51 L 97/52 L 102/50 L Pulse Oximetry 100 98 99 09/15/18 20:31 09/15/18 20:45 09/15/18 20:47 Temperature Pulse Rate 89 86 Respiratory Rate 19 20 20 Blood Pressure 136/62 Pulse Oximetry 99 99 09/15/18 21:00 09/15/18 21:01 09/15/18 21:31 Temperature Pulse Rate 89 90 89 Respiratory Rate 20 20 20 Blood Pressure 92/43 L 74/36 L Pulse Oximetry 99 99 98 09/15/18 21:33 09/15/18 21:36 09/15/18 21:40 Temperature Pulse Rate 87 87 87 Respiratory Rate 20 20 20 Blood Pressure 73/34 L 77/42 L 81/54 L Pulse Oximetry 98 97 99 09/15/18 21:45 09/15/18 21:50 09/15/18 21:55 Temperature Pulse Rate 88 87 86 Respiratory Rate 20 20 20 Blood Pressure 88/56 L 84/52 L 85/51 L Pulse Oximetry 98 99 98 09/15/18 22:00 09/15/18 22:05 09/15/18 22:10 Temperature Pulse Rate 86 84 83 Respiratory Rate 20 20 20 Blood Pressure 86/54 L 86/51 L 88/52 L Pulse Oximetry 98 98 98 09/15/18 22:15 09/15/18 22:20 09/15/18 22:25 Temperature Pulse Rate 84 83 85 Respiratory Rate 20 20 20 Blood Pressure 91/61 L 93/53 L 93/56 L Pulse Oximetry 99 98 98 09/15/18 22:30 09/15/18 22:35 09/15/18 22:40 Temperature Pulse Rate 84 85 87 Respiratory Rate 20 20 20 Blood Pressure 90/56 L 90/57 L 90/56 L Pulse Oximetry 99 98 98 09/15/18 22:45 09/15/18 22:51 09/15/18 23:00 Temperature Pulse Rate 93 H 88 86 Respiratory Rate 24 20 20 Blood Pressure 83/46 L 96/65 L 92/58 L Pulse Oximetry 99 100 09/15/18 23:10 09/15/18 23:20 09/15/18 23:30 Temperature Pulse Rate 84 81 79 Respiratory Rate 20 20 20 Blood Pressure 92/63 L 93/51 L 90/47 L Pulse Oximetry 100 97 98 09/15/18 23:40 09/15/18 23:50 09/16/18 00:00 Temperature 100.5 F H Pulse Rate 77 76 72 Respiratory Rate 20 20 20 Blood Pressure 92/51 L 85/50 L 108/55 L Pulse Oximetry 100 96 96 09/16/18 00:10 09/16/18 00:20 09/16/18 00:30 Temperature Pulse Rate 73 73 76 Respiratory Rate 20 20 21 Blood Pressure 109/57 L 120/66 114/70 Pulse Oximetry 95 98 85 L 09/16/18 00:40 09/16/18 00:45 09/16/18 01:00 Temperature Pulse Rate 88 79 77 Respiratory Rate 25 H 20 21 Blood Pressure 115/69 97/57 L Pulse Oximetry 90 L 96 88 L 09/16/18 01:15 09/16/18 01:30 09/16/18 01:38 Temperature Pulse Rate 77 78 77 Respiratory Rate 20 20 20 Blood Pressure 89/53 L 87/53 L 85/50 L Pulse Oximetry 92 L 89 L 99 09/16/18 01:45 09/16/18 02:00 09/16/18 02:15 Temperature Pulse Rate 77 72 74 Respiratory Rate 20 20 21 Blood Pressure 86/60 L 88/59 L 101/59 L Pulse Oximetry 99 100 100 09/16/18 02:30 09/16/18 02:45 09/16/18 03:00 Temperature Pulse Rate 73 73 72 Respiratory Rate 21 20 20 Blood Pressure 88/53 L 87/54 L 90/61 L Pulse Oximetry 99 99 99 09/16/18 03:15 09/16/18 03:30 09/16/18 03:45 Temperature Pulse Rate 73 68 79 Respiratory Rate 22 20 45 H Blood Pressure 89/60 L 92/54 L 123/82 Pulse Oximetry 100 100 98 09/16/18 04:00 09/16/18 04:16 09/16/18 04:30 Temperature 99.6 F Pulse Rate 78 75 73 Respiratory Rate 22 21 20 Blood Pressure 128/64 107/54 L 105/51 L Pulse Oximetry 100 100 100 09/16/18 04:33 09/16/18 04:34 09/16/18 04:45 Temperature Pulse Rate 74 72 Respiratory Rate 20 20 21 Blood Pressure 93/50 L Pulse Oximetry 100 100 09/16/18 05:00 09/16/18 05:15 09/16/18 05:30 Temperature Pulse Rate 71 71 69 Respiratory Rate 38 H 57 H 69 H Blood Pressure 89/51 L 82/48 L 82/51 L Pulse Oximetry 100 100 100 09/16/18 05:45 09/16/18 06:00 09/16/18 06:15 Temperature Pulse Rate 67 69 70 Respiratory Rate 67 H 57 H 40 H Blood Pressure 90/52 L 91/52 L 93/53 L Pulse Oximetry 100 99 100 09/16/18 06:30 09/16/18 06:40 09/16/18 06:50 Temperature Pulse Rate 69 74 72 Respiratory Rate 44 H 51 H 47 H Blood Pressure 80/50 L 109/60 109/54 L Pulse Oximetry 100 93 L 100 09/16/18 07:00 09/16/18 07:01 09/16/18 07:10 Temperature Pulse Rate 75 75 76 Respiratory Rate 34 H 34 H 35 H Blood Pressure 130/65 112/57 L Pulse Oximetry 98 99 100 09/16/18 07:20 09/16/18 07:57 09/16/18 08:03 Temperature Pulse Rate 78 38 L Respiratory Rate 38 H 16 17 Blood Pressure 118/78 Pulse Oximetry 97 100 Intake & Output 09/15/18 09/16/18 09/16/18 18:59 06:59 18:59 Intake Total 55 / 55 1485 / 1485 Output Total 500 / 500 200 / 200 Balance -445 / -445 1285 / 1285 Weight 140.5 kg Intake: IV 1100 / 1100 NS Inj 1,000 ML @ 84 mls/hr IV. 1000 / 1000 CONT .[id number] PABLO Rx#:[id number] Flexbumin 25% Inj 100 ML @ 60 100 / 100 mls/hr IV.SIG ONCE ONE Rx#: [id number] Tube Feeding 55 / 55 325 / 325 Tube Irrigant 60 / 60 Output: Urine Amount (Catheter) 500 / 500 200 / 200 Straight 500 / 500 200 / 200 Other: Date of Last Bowel Movement 09/13/18 09/13/18 # Bowel Movements 0 0 Narrative: GENERAL: Intubated on [facility] vent SKIN: Warm and dry. HEENT: (-) NECK: Neck veins not invisible. CARDIOVASCULAR: S1S2 Regular rate and rhythm. No murmur appreciated. RESPIRATORY: Breath sounds are equal and clear bilaterally with good air movement status post intubation GASTROINTESTINAL: Abdomen soft, nondistended MUSCULOSKELETAL: No obvious deformities. Early venous stasis changes noted bilaterally. Bilateral 1+ pitting pre-tibial edema - Urinary Catheter Management Straight Cath placed during this visit: no Results 09/16/18 06:10 09/16/18 06:10 Cardiac Enzymes 09/15/18 09/16/18 Range/Units 05:01 06:10 AST 22 (15-37) U/L B-Natriuretic Peptide 38 (0-100) pg/mL Coagulation 09/15/18 Range/Units 05:01 B-Natriuretic Peptide 38 (0-100) pg/mL CBC 09/15/18 09/16/18 Range/Units 05:01 06:10 WBC 11.8 H 9.9 (4.0-11.0) th/mm3 RBC 3.96 L 3.49 L (4.00-5.30) mil/mm3 Hgb 11.1 L 9.6 L (11.6-15.3) gm/dL Hct 34.7 L 30.2 L (35.0-46.0) % Plt Count 282 217 (150-450) th/mm3 Neut # (Auto) 7.2 (1.8-7.7) th/mm3 Lymph # (Auto) 1.4 (1.0-4.8) th/mm3 [place] # (Auto) 1.0 H (0.0-0.9) th/mm3 Eos # (Auto) 0.2 (0.0-0.4) th/mm3 Baso # (Auto) 0.0 (0.0-0.2) th/mm3 Comprehensive Metabolic Panel 09/15/18 09/15/18 09/16/18 Range/Units 05:01 09:57 06:10 Sodium 142 144 144 (136-145) meq/L Potassium 3.6 3.5 3.1 L (3.5-5.1) meq/L Chloride 94 L 96 L 98 (98-107) meq/L Carbon Dioxide 43.2 H 40.9 H 41.2 H (21.0-32.0) meq/L BUN 17 18 28 H (7-18) mg/dL Creatinine 0.95 1.04 H 2.28 H (0.50-1.00) mg/dL Calcium 9.1 8.7 8.6 (8.5-10.1) mg/dL AST 22 (15-37) U/L ALT 12 (10-53) U/L Alkaline Phosphatase 86 (45-117) U/L Total Protein 6.5 D (6.4-8.2) g/dL Albumin 3.0 L (3.4-5.0) g/dL Intake and Output 09/15/18 09/16/18 09/16/18 22:59 06:59 14:59 Intake Total 55 / 55 1485 / 1485 Output Total 500 / 500 200 / 200 Balance -445 / -445 1285 / 1285 Intake: IV 1100 / 1100 NS Inj 1,000 ML @ 84 mls/hr IV. 1000 / 1000 CONT .[id number] PABLO Rx#:[id number] Flexbumin 25% Inj 100 ML @ 60 100 / 100 mls/hr IV.SIG ONCE ONE Rx#: [id number] Tube Feeding 55 / 55 325 / 325 Tube Irrigant 60 / 60 Output: Urine Amount (Catheter) 500 / 500 200 / 200 Straight 500 / 500 200 / 200 Other: Date of Last Bowel Movement 09/13/18 09/13/18 # Bowel Movements 0 0 Weight 140.5 kg - Imaging and Cardiology Imaging: Impressions Chest X-Ray 09/15/18 09:05 CONCLUSION: ET tube in good position. Assessment and Plan - Assessment (1) Pickwickian syndrome Code(s): E66.2 - Morbid (severe) obesity with alveolar hypoventilation Status : Acute (2) Edema Code(s): R60.9 - Edema, unspecified Status: Acute (3) Acute on chronic diastolic (congestive) heart failure Code(s): I50.33 - Acute on chronic diastolic (congestive) heart failure Status : Acute (4) Acute renal failure Code(s): N17.9 - Acute kidney failure, unspecified Status: Acute (5) Paroxysmal atrial fibrillation Code(s): I48.0 - Paroxysmal atrial fibrillation Status: Acute Plan: Continue sotalol - Plan Creatinine has doubled. Stop ACEI and diuretics. Her problem is primary pulmonary
[2018-09-16] MEDS: Potassium Phosphate Inj 30 MMOL in Sodium Chlor 0.9% Inj 250 ML IV.SIG PRN (09:15)
--- NOTE | 2018-09-16 09:26 | US ---
EXAM DATE: 09/16/2018 9:14 AM EST AGE/SEX: 63 years / Female INDICATIONS: Increased labs. CLINICAL DATA: This is the patient's initial encounter. Patient reports that signs and symptoms have been present for 1 day and indicates a pain score of Nonresponsive. MEDICAL/SURGICAL HISTORY: Congestive heart failure. Chronic obstructive pulmonary disease. Hy pertension. Sleep apnea. Atrial fibrillation. None. COMPARISON: [facility] [place], CT ABDOMEN & PELVIS W/O CONTRAST, 12/01/2017. . MEASUREMENTS: Right Kidney:__10.0 x 4.3 x 5.6 cm Left Kidney:__8.7 x 5.2 x 5.0 cm FINDINGS: Right Kidney: Normal echogenicity and cortical thickness. No evidence of mass or hydronephrosis. 1.6 x 1.5 cm cyst upper pole. Left Kidney: Normal echogenicity and cortical thickness. No mass or hydronephrosis. Bladder: Within normal limits given the degree of distension. Other: None. CONCLUSION: 1. Negative renal sonogram other than right renal cyst. Electronically signed by: Matty Chicas MD Board Certified Radiologist 09/16/2018 9:24 AM EST
[2018-09-16] MEDS: Simethicone 125 MG Chew Tablet PO SCH (09:58)
--- NOTE | 2018-09-16 10:25 | P.PNCC ---
Subjective Subjective Remarks/Hospital Course: This is a 63-year-old female. Date of admission 09/14/2018. Date of consultation 09/15/2018. Past medical history includes paroxysmal atrial fibrillation currently normal sinus rhythm, elevated BMI, congestive heart failure with last documented ejection fraction 55% 2012, COPD, hypertension, left bundle branch block essential tremors. Patient originally planned to [place] on 09/14/2018 with worsening shortness of breath slowly on coming over the past couple weeks. She also noticed increasing bilateral lower extremity edema. 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 Silverman on Wednesday who asked her to drink as much fluid and juice as she possibly could and reduce her dose of Lasix from 20 mg twice a day to once a day. During current hospitalization, patient resume home medications of enalapril, furosemide, metoprolol and hydralazine. Patient seen by cardiology and pulmonology. Refusing to be from central sleep apnea. Currently on ipratropium aerosols every [address] House. Seen by Dr. Chew. Switch to sotalol 80 mg twice daily and diuresis furosemide 40 mg IV twice daily. This morning, patient was found obtunded. PH was 7.17. Retaining CO2. Transfer to ICU and intubated using 20 mg etomidate. Subjective 09/16: No acute distress on mechanical ventilation. Arousable but not following commands. Tolerating tube feeding. Decreased urine output. Will Place Coello catheter to monitor accurate I's and O's Objective Vital Signs / I&O: Vital Signs 09/15/18 11:00 09/15/18 12:00 09/15/18 12:09 Temperature 97.9 F Pulse Rate 73 70 68 Respiratory Rate 22 24 22 Blood Pressure 81/46 L 98/57 L Pulse Oximetry 100 100 100 09/15/18 13:00 09/15/18 14:00 09/15/18 15:00 Temperature Pulse Rate 74 77 83 Respiratory Rate 22 22 23 Blood Pressure 88/53 L 105/58 L 117/55 L Pulse Oximetry 99 100 97 09/15/18 16:00 09/15/18 16:52 09/15/18 17:00 Temperature 99 F Pulse Rate 84 80 90 Respiratory Rate 22 22 22 Blood Pressure 100/51 L 108/71 Pulse Oximetry 99 100 94 L 09/15/18 17:31 02/14/19 18:00 09/15/18 18:31 Temperature Pulse Rate 95 H 88 87 Respiratory Rate 28 H 20 20 Blood Pressure 114/49 L 94/51 L Pulse Oximetry 96 100 100 09/15/18 19:00 09/15/18 19:30 09/15/18 20:00 Temperature 99.4 F Pulse Rate 81 87 87 Respiratory Rate 20 20 20 Blood Pressure 101/51 L 97/52 L 102/50 L Pulse Oximetry 100 98 99 09/15/18 20:31 09/15/18 20:45 09/15/18 20:47 Temperature Pulse Rate 89 86 Respiratory Rate 19 20 20 Blood Pressure 136/62 Pulse Oximetry 99 99 09/15/18 21:00 09/15/18 21:01 09/15/18 21:31 Temperature Pulse Rate 89 90 89 Respiratory Rate 20 20 20 Blood Pressure 92/43 L 74/36 L Pulse Oximetry 99 99 98 09/15/18 21:33 09/15/18 21:36 09/15/18 21:40 Temperature Pulse Rate 87 87 87 Respiratory Rate 20 20 20 Blood Pressure 73/34 L 77/42 L 81/54 L Pulse Oximetry 98 97 99 09/15/18 21:45 09/15/18 21:50 09/15/18 21:55 Temperature Pulse Rate 88 87 86 Respiratory Rate 20 20 20 Blood Pressure 88/56 L 84/52 L 85/51 L Pulse Oximetry 98 99 98 09/15/18 22:00 09/15/18 22:05 09/15/18 22:10 Temperature Pulse Rate 86 84 83 Respiratory Rate 20 20 20 Blood Pressure 86/54 L 86/51 L 88/52 L Pulse Oximetry 98 98 98 09/15/18 22:15 09/15/18 22:20 09/15/18 22:25 Temperature Pulse Rate 84 83 85 Respiratory Rate 20 20 20 Blood Pressure 91/61 L 93/53 L 93/56 L Pulse Oximetry 99 98 98 09/15/18 22:30 09/15/18 22:35 09/15/18 22:40 Temperature Pulse Rate 84 85 87 Respiratory Rate 20 20 20 Blood Pressure 90/56 L 90/57 L 90/56 L Pulse Oximetry 99 98 98 09/15/18 22:45 09/15/18 22:51 09/15/18 23:00 Temperature Pulse Rate 93 H 88 86 Respiratory Rate 24 20 20 Blood Pressure 83/46 L 96/65 L 92/58 L Pulse Oximetry 99 100 09/15/18 23:10 09/15/18 23:20 09/15/18 23:30 Temperature Pulse Rate 84 81 79 Respiratory Rate 20 20 20 Blood Pressure 92/63 L 93/51 L 90/47 L Pulse Oximetry 100 97 98 09/15/18 23:40 09/15/18 23:50 09/16/18 00:00 Temperature 100.5 F H Pulse Rate 77 76 72 Respiratory Rate 20 20 20 Blood Pressure 92/51 L 85/50 L 108/55 L Pulse Oximetry 100 96 96 09/16/18 00:10 09/16/18 00:20 09/16/18 00:30 Temperature Pulse Rate 73 73 76 Respiratory Rate 20 20 21 Blood Pressure 109/57 L 120/66 114/70 Pulse Oximetry 95 98 85 L 09/16/18 00:40 09/16/18 00:45 09/16/18 01:00 Temperature Pulse Rate 88 79 77 Respiratory Rate 25 H 20 21 Blood Pressure 115/69 97/57 L Pulse Oximetry 90 L 96 88 L 09/16/18 01:15 09/16/18 01:30 09/16/18 01:38 Temperature Pulse Rate 77 78 77 Respiratory Rate 20 20 20 Blood Pressure 89/53 L 87/53 L 85/50 L Pulse Oximetry 92 L 89 L 99 09/16/18 01:45 09/16/18 02:00 09/16/18 02:15 Temperature Pulse Rate 77 72 74 Respiratory Rate 20 20 21 Blood Pressure 86/60 L 88/59 L 101/59 L Pulse Oximetry 99 100 100 09/16/18 02:30 09/16/18 02:45 09/16/18 03:00 Temperature Pulse Rate 73 73 72 Respiratory Rate 21 20 20 Blood Pressure 88/53 L 87/54 L 90/61 L Pulse Oximetry 99 99 99 09/16/18 03:15 09/16/18 03:30 09/16/18 03:45 Temperature Pulse Rate 73 68 79 Respiratory Rate 22 20 45 H Blood Pressure 89/60 L 92/54 L 123/82 Pulse Oximetry 100 100 98 09/16/18 04:00 09/16/18 04:16 09/16/18 04:30 Temperature 99.6 F Pulse Rate 78 75 73 Respiratory Rate 22 21 20 Blood Pressure 128/64 107/54 L 105/51 L Pulse Oximetry 100 100 100 09/16/18 04:33 09/16/18 04:34 09/16/18 04:45 Temperature Pulse Rate 74 72 Respiratory Rate 20 20 21 Blood Pressure 93/50 L Pulse Oximetry 100 100 09/16/18 05:00 09/16/18 05:15 09/16/18 05:30 Temperature Pulse Rate 71 71 69 Respiratory Rate 38 H 57 H 69 H Blood Pressure 89/51 L 82/48 L 82/51 L Pulse Oximetry 100 100 100 09/16/18 05:45 09/16/18 06:00 09/16/18 06:15 Temperature Pulse Rate 67 69 70 Respiratory Rate 67 H 57 H 40 H Blood Pressure 90/52 L 91/52 L 93/53 L Pulse Oximetry 100 99 100 09/16/18 06:30 09/16/18 06:40 09/16/18 06:50 Temperature Pulse Rate 69 74 72 Respiratory Rate 44 H 51 H 47 H Blood Pressure 80/50 L 109/60 109/54 L Pulse Oximetry 100 93 L 100 09/16/18 07:00 09/16/18 07:01 09/16/18 07:10 Temperature Pulse Rate 75 75 76 Respiratory Rate 34 H 34 H 35 H Blood Pressure 130/65 112/57 L Pulse Oximetry 98 99 100 09/16/18 07:20 09/16/18 07:57 09/16/18 08:03 Temperature Pulse Rate 78 38 L Respiratory Rate 38 H 16 17 Blood Pressure 118/78 Pulse Oximetry 97 100 Intake & Output 09/15/18 09/16/18 09/16/18 18:59 06:59 18:59 Intake Total 55 / 55 1485 / 1485 Output Total 500 / 500 200 / 200 Balance -445 / -445 1285 / 1285 Weight 140.5 kg Intake: IV 1100 / 1100 NS Inj 1,000 ML @ 84 mls/hr IV. 1000 / 1000 CONT .[id number] [facility] Rx#:[id number] Flexbumin 25% Inj 100 ML @ 60 100 / 100 mls/hr IV.SIG ONCE ONE Rx#: [id number] Tube Feeding 55 / 55 325 / 325 Tube Irrigant 60 / 60 Output: Urine Amount (Catheter) 500 / 500 200 / 200 Straight 500 / 500 200 / 200 Other: Date of Last Bowel Movement 09/13/18 09/13/18 # Bowel Movements 0 0 Result Diagrams: 09/16/18 06:10 09/16/18 06:10 Other Results: Microbiology 09/15/18 10:20 Sputum - Endotracheal Gram Stain - Final 09/15/18 17:35 Nasal Wash Influenza Types A,B Antigen - Final Negative for FLU A and B antigen Infection due to influenza A or B cannot be ruled out since the antigen present in the sample may be below the detection limit of the test. Imaging: Chest X-Ray 09/14/18 03:22 CONCLUSION: Mild interstitial prominence. Chest X-Ray 09/15/18 09:05 CONCLUSION: ET tube in good position. Abdomen/Bladder Ultrasound 09/16/18 08:29 CONCLUSION: 1. Negative renal sonogram other than right renal cyst. Objective Remarks: GENERAL: This is a 63-year-old female currently orotracheally intubated SKIN: Warm and dry. HEAD: Atraumatic. Normocephalic. EYES: Pupils equal and round. No scleral icterus. No injection or drainage. ENT: No nasal bleeding or discharge. Mucous membranes pink and moist. NECK: Trachea midline. No JVD. CARDIOVASCULAR: Regular rate and rhythm. S1, S2 no S4. Diminished RESPIRATORY: No accessory muscle use minutes breath sounds due to body habitus GASTROINTESTINAL: Abdomen soft, non-tender, obese. MUSCULOSKELETAL: Extremities nonpitting bilateral lower extremity edema. No obvious deformities. NEUROLOGICAL: Arousable on the ventilator without sedation but not currently following commands. Moving all 4 extremity spontaneously. Currently with positive cough and gag. Assessment and Plan - Assessment and Plan Plan: Neuro/Psych: Anxiety disorder Chronic benzodiazepine use Patient is on midazolam drip to maintain RASS -1 Discontinuing lorazepam 1 mg twice daily/home medication Acetaminophen allergy documented CV: Paroxysmal atrial fibrillation currently normal sinus rhythm Congestive heart failure unknown etiology. Last echocardiogram EF 50-55% Elevated HDL Followed by cardiology And home on enalapril 5 mg daily, furosemide 20 mg daily metoprolol tartrate 50 mg twice daily. Continue home medication hydralazine 10 mg twice daily Currently holding enalapril 20 mg daily in light of hypotension and acute kidney injury Hold metoprolol tartrate 12.5 mg twice daily post intubation. Resume clinically indicated. Echocardiogram: 09/06/12 - ejection fraction of 50-55% with normal wall motion Myocardial perfusion scan: 09/07/12 - slight ischemia in the LAD distribution with an ejection fraction of 60 Resp: Acute respiratory failure with CO2 retention Obstructive sleep apnea -untreated Previous diagnosis of COPD Last PFT showed mild restrictive lung disease. No obstructive component Followed by pulmonology. Currently ipratropium aerosols every 4 hours scheduled Spontaneous breathing trials today for possible extubation GI: Gastroesophageal reflux disease Start tube feeding with Jevity 1.5 goal 50 cc an hour. Noted that nutrition recommends a vital high-protein at 65 cc an hour Famotidine for GI prophylaxis Docusate sodium/senna 1 tablet twice daily for bowel regimen : Coello catheter if indicated for accurate I's and O's in a critical patient Endo: Acute hyperglycemia Sliding scale insulin Accu-Cheks to maintain euglycemia aspart insulin every 6 hours low regimen Renal: Acute kidney injury Hold furosemide CHAPIS inhibitor discontinued yesterday. Monitor urine output Accurate I's and O's Check renal ultrasound, urine eosinophils, sodium and creatinine Avoid nephrotoxic medications Styloid resuscitation Heme: Leukocytosis Normocytic anemia No indication for transfusion of blood products at this time. Monitor CBC daily. Follow trends. ID: Sputum influenza A and B no growth. Sputum pending FEN: Hypokalemia Hypophosphatemia Replace electrolytes as clinically indicated per ICU electrolyte protocol Recheck potassium phosphorus at 1800 hrs. today. Currently on 0.9% NaCl at 84 cc an hour. MSK: Elevated BMI Chronic low back pain Weight loss encouraged PT evaluate and treat Access -Utilize peripheral IV. Central line if indicated Prophylaxis -GI -famotidine -DVT -SCD/enoxaparin Critical care time 35 minutes follow-up
[2018-09-16] MEDS ORDERED: Etomidate Inj 40 MG/20 ML Vial IV.PUSH ONE (11:46)
--- NOTE | 2018-09-16 11:59 | P.PCN ---
Date of procedure: 09/16/18 Pre-op diagnosis: Acute respiratory failure Post-op diagnosis: same Procedure: DATE: 09/16/2018 PROCEDURE: Orotracheal intubation INDICATION: Respiratory failure, acute hypoxemic DETAILS OF PROCEDURE The patient was placed in optimal position and preoxygenated with 100% FiO2 via bag valve mask. At the start oxygen saturation was 97 %. The patient was administered 20 mg etomidate IV. I entered the oropharynx with a size 4 laryngoscope blade and obtained a grade 2 view of the airway. On single attempt a size 8.5 cuffed endotracheal tube was passed through the vocal cords. Correct tube location was confirmed with end tidal CO2 detector and by auscultating over bilateral lung brock. The endotracheal tube was secured with adhesive tape at a depth of 24 cm at the lips. The patient was connected to the ventilator. The patient tolerated the procedure well without any apparent complications. Oxygen saturations were maintained greater than 90% all times. STAT chest x-ray pending at time of dictation.
[2018-09-16] MEDS: Dexmedetomidine Inj 200 MCG in Sodium Chlor 0.9% Inj 48 ML IV.CONT PRN ×2 (12:00→20:40)
--- NOTE | 2018-09-16 12:38 | XR ---
EXAM DATE: 09/16/2018 12:33 PM EST AGE/SEX: 63 years / Female INDICATIONS: Reintubation. CLINICAL DATA: This is the patient's initial encounter. Patient reports that signs and symptoms have been present for 4 - 6 days and indicates a pain score of Nonresponsive. MEDICAL/SURGICAL HISTORY: Chronic obstructive pulmonary disease. Congestive heart failure. a-f ib None. COMPARISON: [facility], CHEST 1V SINGLE AP, 09/15/2018. . FINDINGS: Endotracheal tube is in place. The tip is at the level of the thoracic aortic arch. There is no evide nce of pneumothorax. There is an NG tube in the stomach. There is evidence of by basilar atelectasis. No significant change compared to the prior exam. CONCLUSION: 1. The endotracheal tube appears to be in good position. 2. No evidence of pneumothorax. Electronically signed by: Craig Mccullough MD Board Certified Radiologist 09/16/2018 12:37 PM EST
[2018-09-16 12:40] LABS: ABG Base Excess 9.9 mmol/L (-2-2); ABG PCO2 57 mmHg (38-42); ABG PO2 84 mmHG (61-120)
--- NOTE | 2018-09-16 12:43 | P.PNFP ---
Subjective Interval history: Remains intubated on [facility] vent this AM. Inadequate UOP noted, Cr has doubled. <ElylorNasim Hopkins - 09/16/18 12:43> Results - Labs Result diagrams: 09/17/18 06:41 09/17/18 06:41 <Filomena Williamson - 09/17/18 17:34> Abnormal lab results 09/16/18 09/17/18 09/17/18 Range/Units 23:47 05:08 06:41 RBC 3.23 L (4.00-5.30) mil/mm3 Hgb 9.0 L (11.6-15.3) gm/dL Hct 28.2 L (35.0-46.0) % MCHC 31.8 L (32.0-36.0) % Neut % (Auto) 74.4 H (16.0-70.0) % Sodium (136-145) meq/L Potassium (3.5-5.1) meq/L BUN (7-18) mg/dL Creatinine (0.50-1.00) mg/dL Estimated GFR (>89) mL/min POC Glucose 121 H 120 H (68-110) mg/dl Random Glucose (74-106) mg/dL Calcium (8.5-10.1) mg/dL Phosphorus (2.5-4.9) mg/dL 09/17/18 09/17/18 09/17/18 Range/Units 06:41 12:06 17:09 RBC (4.00-5.30) mil/mm3 Hgb (11.6-15.3) gm/dL Hct (35.0-46.0) % MCHC (32.0-36.0) % Neut % (Auto) (16.0-70.0) % Sodium 146 H (136-145) meq/L Potassium 3.1 L (3.5-5.1) meq/L BUN 26 H (7-18) mg/dL Creatinine 1.79 H (0.50-1.00) mg/dL Estimated GFR 29 L (>89) mL/min POC Glucose 131 H 125 H (68-110) mg/dl Random Glucose 120 H (74-106) mg/dL Calcium 7.9 L (8.5-10.1) mg/dL Phosphorus 2.4 L D (2.5-4.9) mg/dL Short CBC 09/17/18 Range/Units 06:41 WBC 9.3 (4.0-11.0) th/mm3 Hgb 9.0 L (11.6-15.3) gm/dL Hct 28.2 L (35.0-46.0) % Plt Count 182 (150-450) th/mm3 BMP 09/17/18 06:41 Sodium 146 H Potassium 3.1 L Chloride 106 Carbon Dioxide 30.8 BUN 26 H Creatinine 1.79 H Calcium 7.9 L <Filomena Williamson - 09/17/18 17:34> Abnormal lab results 09/16/18 09/16/18 09/16/18 Range/Units 00:23 05:06 05:32 RBC (4.00-5.30) mil/mm3 Hgb (11.6-15.3) gm/dL Hct (35.0-46.0) % Neut % (Auto) (16.0-70.0) % Knott % (Auto) (0.0-8.0) % Knott # (Auto) (0.0-0.9) th/mm3 ABG pH 7.64 H* (7.380-7.420) ABG pCO2 35 L (38-42) mmHg ABG HCO3 38 H (22-26) mmol/L ABG Base Excess 15.1 H (-2-2) mmol/L Hemoglobin 9.3 L (12.0-16.0) G/DL Potassium (3.5-5.1) meq/L Carbon Dioxide (21.0-32.0) meq/L BUN (7-18) mg/dL Creatinine (0.50-1.00) mg/dL Estimated GFR (>89) mL/min POC Glucose 129 H 116 H (68-110) mg/dl Random Glucose (74-106) mg/dL Phosphorus (2.5-4.9) mg/dL Albumin (3.4-5.0) g/dL 09/16/18 09/16/18 Range/Units 06:10 06:10 RBC 3.49 L (4.00-5.30) mil/mm3 Hgb 9.6 L (11.6-15.3) gm/dL Hct 30.2 L (35.0-46.0) % Neut % (Auto) 73.3 H (16.0-70.0) % Knott % (Auto) 10.3 H (0.0-8.0) % Knott # (Auto) 1.0 H (0.0-0.9) th/mm3 ABG pH (7.380-7.420) ABG pCO2 (38-42) mmHg ABG HCO3 (22-26) mmol/L ABG Base Excess (-2-2) mmol/L Hemoglobin (12.0-16.0) G/DL Potassium 3.1 L (3.5-5.1) meq/L Carbon Dioxide 41.2 H (21.0-32.0) meq/L BUN 28 H (7-18) mg/dL Creatinine 2.28 H (0.50-1.00) mg/dL Estimated GFR 22 L (>89) mL/min POC Glucose (68-110) mg/dl Random Glucose 135 H (74-106) mg/dL Phosphorus 0.7 L D (2.5-4.9) mg/dL Albumin 3.0 L (3.4-5.0) g/dL Short CBC 09/16/18 Range/Units 06:10 WBC 9.9 (4.0-11.0) th/mm3 Hgb 9.6 L (11.6-15.3) gm/dL Hct 30.2 L (35.0-46.0) % Plt Count 217 (150-450) th/mm3 BMP 09/16/18 06:10 Sodium 144 Potassium 3.1 L Chloride 98 Carbon Dioxide 41.2 H BUN 28 H Creatinine 2.28 H Calcium 8.6 Liver Function 09/16/18 Range/Units 06:10 Total Bilirubin 0.9 (0.2-1.0) mg/dL AST 22 (15-37) U/L ALT 12 (10-53) U/L Alkaline Phosphatase 86 (45-117) U/L Albumin 3.0 L (3.4-5.0) g/dL <Zee R3,Nasim - 09/16/18 12:43> - Imaging Impressions Abdomen/Bladder Ultrasound 09/16/18 08:29 CONCLUSION: 1. Negative renal sonogram other than right renal cyst. <Beau Villanuevash - 09/16/18 12:43> Physical Exam Vital signs: Vital Signs 09/16/18 17:45 09/16/18 18:00 09/16/18 18:30 Temperature Pulse Rate 69 73 71 Respiratory Rate 23 18 21 Blood Pressure 104/57 L 105/63 111/64 Pulse Oximetry 96 96 98 09/16/18 19:00 09/16/18 19:30 09/16/18 20:00 Temperature 100.2 F H Pulse Rate 76 78 73 Respiratory Rate 25 H 31 H 29 H Blood Pressure 111/71 102/65 106/55 L Pulse Oximetry 98 96 97 09/16/18 20:30 09/16/18 20:59 09/16/18 21:00 Temperature Pulse Rate 71 69 70 Respiratory Rate 21 16 24 Blood Pressure 101/68 102/62 Pulse Oximetry 97 97 09/16/18 21:30 09/16/18 22:00 09/16/18 22:30 Temperature Pulse Rate 67 67 66 Respiratory Rate 27 H 20 26 H Blood Pressure 93/60 L 95/59 L 91/54 L Pulse Oximetry 97 97 97 09/16/18 23:00 09/16/18 23:30 09/17/18 00:00 Temperature 100 F H Pulse Rate 66 66 77 Respiratory Rate 20 22 24 Blood Pressure 95/56 L 88/61 L 135/77 Pulse Oximetry 97 96 97 09/17/18 00:08 09/17/18 00:30 09/17/18 01:00 Temperature Pulse Rate 73 72 70 Respiratory Rate 16 16 20 Blood Pressure 103/66 105/63 Pulse Oximetry 98 98 98 09/17/18 01:30 09/17/18 02:00 09/17/18 02:30 Temperature Pulse Rate 98 H 66 65 Respiratory Rate 23 18 16 Blood Pressure 109/69 100/56 L 96/58 L Pulse Oximetry 97 96 96 09/17/18 03:00 09/17/18 03:55 09/17/18 04:00 Temperature 99.9 F H Pulse Rate 65 66 66 Respiratory Rate 19 16 21 Blood Pressure 100/69 108/66 107/67 Pulse Oximetry 96 98 98 09/17/18 04:12 09/17/18 04:30 09/17/18 05:00 Temperature Pulse Rate 66 63 59 L Respiratory Rate 16 30 H 38 H Blood Pressure 102/68 128/69 Pulse Oximetry 98 98 98 09/17/18 05:30 09/17/18 06:00 09/17/18 06:30 Temperature Pulse Rate 55 L 53 L 53 L Respiratory Rate 36 H 41 H 34 H Blood Pressure 131/67 132/70 136/74 Pulse Oximetry 97 97 97 09/17/18 07:00 09/17/18 07:30 09/17/18 08:00 Temperature 98.4 F Pulse Rate 54 L 51 L 52 L Respiratory Rate 16 36 H 16 Blood Pressure 138/73 136/71 136/70 Pulse Oximetry 97 97 97 09/17/18 08:30 09/17/18 09:00 09/17/18 09:30 Temperature Pulse Rate 54 L 56 L 62 Respiratory Rate 16 16 16 Blood Pressure 133/69 128/69 141/78 H Pulse Oximetry 97 97 98 09/17/18 10:00 09/17/18 10:30 09/17/18 11:00 Temperature Pulse Rate 59 L 49 L 50 L Respiratory Rate 16 16 16 Blood Pressure 151/89 H 136/71 138/69 Pulse Oximetry 99 97 98 09/17/18 11:30 09/17/18 12:00 09/17/18 12:30 Temperature 99 F Pulse Rate 52 L 51 L 56 L Respiratory Rate 36 H 34 H 33 H Blood Pressure 138/78 149/70 H 145/85 H Pulse Oximetry 97 98 98 09/17/18 13:00 09/17/18 13:30 09/17/18 13:32 Temperature Pulse Rate 50 L 86 61 Respiratory Rate 35 H 23 19 Blood Pressure 146/77 H 225/98 H 194/92 H Pulse Oximetry 98 97 99 09/17/18 13:52 09/17/18 14:00 09/17/18 15:00 Temperature Pulse Rate 46 L 48 L 67 Respiratory Rate 25 H 33 H 21 Blood Pressure 162/71 H 147/86 H 142/65 H Pulse Oximetry 98 98 97 09/17/18 15:55 09/17/18 16:00 09/17/18 17:00 Temperature 97.8 F Pulse Rate 63 62 Respiratory Rate 15 18 14 Blood Pressure 151/78 H 143/85 H Pulse Oximetry 99 100 100 Intake & Output 09/16/18 09/17/18 09/17/18 18:59 06:59 18:59 Intake Total 2340 / 2340 1100 / 1100 1100 / 1100 Output Total 300 / 300 300 / 300 Balance 2040 / 2040 800 / 800 1100 / 1100 Weight 143.2 kg Intake: IV 2340 / 2340 1100 / 1100 1100 / 1100 Precedex Inj 200 MCG In NS Inj 100 / 100 100 / 100 48 ML @ 0.1 MCG/KG/HR 3.51 mls/ hr IV.CONT TITRATE PRN Rx#: [id number] Versed Inj 100 mg In 100 ml @ 2 80 / 80 MG/HR 2 mls/hr IV.CONT TITRATE PRN Rx#:[id number] NS Inj 1,000 ML @ 84 mls/hr IV. 1000 / 1000 1000 / 1000 1000 / 1000 CONT .[id number] PABLO Rx#:[id number] Potassium Phosphate Inj 30 MMOL 260 / 260 In NS Inj 250 ML @ 42 mls/hr IV.SIG UNSCH PRN Rx#:[id number] NS Inj 2,000 ML @ Wide Open IV. 1000 / 1000 SIG BOLUS ONE Rx#:[id number] Tube Feeding 0 / 0 Output: Urine 0 / 0 Urine Amount (Catheter) 300 / 300 300 / 300 Indwelling Urethral Catheter 300 / 300 Straight 300 / 300 Other: # Voids 0 # Urine Diapers 0 Date of Last Bowel Movement 09/13/18 09/13/18 09/13/18 # Bowel Movements 0 0 <Filomena Williamson M - 09/17/18 17:34> Vital Signs 09/15/18 13:00 09/15/18 14:00 09/15/18 15:00 Temperature Pulse Rate 74 77 83 Respiratory Rate 22 22 23 Blood Pressure 88/53 L 105/58 L 117/55 L Pulse Oximetry 99 100 97 09/15/18 16:00 09/15/18 16:52 09/15/18 17:00 Temperature 99 F Pulse Rate 84 80 90 Respiratory Rate 22 22 22 Blood Pressure 100/51 L 108/71 Pulse Oximetry 99 100 94 L 09/15/18 17:31 09/15/18 18:00 09/15/18 18:31 Temperature Pulse Rate 95 H 88 87 Respiratory Rate 28 H 20 20 Blood Pressure 114/49 L 94/51 L Pulse Oximetry 96 100 100 09/15/18 19:00 09/15/18 19:30 02/14/19 20:00 Temperature 99.4 F Pulse Rate 81 87 87 Respiratory Rate 20 20 20 Blood Pressure 101/51 L 97/52 L 102/50 L Pulse Oximetry 100 98 99 09/15/18 20:31 09/15/18 20:45 09/15/18 20:47 Temperature Pulse Rate 89 86 Respiratory Rate 19 20 20 Blood Pressure 136/62 Pulse Oximetry 99 99 09/15/18 21:00 09/15/18 21:01 09/15/18 21:31 Temperature Pulse Rate 89 90 89 Respiratory Rate 20 20 20 Blood Pressure 92/43 L 74/36 L Pulse Oximetry 99 99 98 09/15/18 21:33 09/15/18 21:36 09/15/18 21:40 Temperature Pulse Rate 87 87 87 Respiratory Rate 20 20 20 Blood Pressure 73/34 L 77/42 L 81/54 L Pulse Oximetry 98 97 99 09/15/18 21:45 09/15/18 21:50 09/15/18 21:55 Temperature Pulse Rate 88 87 86 Respiratory Rate 20 20 20 Blood Pressure 88/56 L 84/52 L 85/51 L Pulse Oximetry 98 99 98 09/15/18 22:00 09/15/18 22:05 09/15/18 22:10 Temperature Pulse Rate 86 84 83 Respiratory Rate 20 20 20 Blood Pressure 86/54 L 86/51 L 88/52 L Pulse Oximetry 98 98 98 09/15/18 22:15 09/15/18 22:20 09/15/18 22:25 Temperature Pulse Rate 84 83 85 Respiratory Rate 20 20 20 Blood Pressure 91/61 L 93/53 L 93/56 L Pulse Oximetry 99 98 98 09/15/18 22:30 09/15/18 22:35 09/15/18 22:40 Temperature Pulse Rate 84 85 87 Respiratory Rate 20 20 20 Blood Pressure 90/56 L 90/57 L 90/56 L Pulse Oximetry 99 98 98 09/15/18 22:45 09/15/18 22:51 09/15/18 23:00 Temperature Pulse Rate 93 H 88 86 Respiratory Rate 24 20 20 Blood Pressure 83/46 L 96/65 L 92/58 L Pulse Oximetry 99 100 09/15/18 23:10 09/15/18 23:20 09/15/18 23:30 Temperature Pulse Rate 84 81 79 Respiratory Rate 20 20 20 Blood Pressure 92/63 L 93/51 L 90/47 L Pulse Oximetry 100 97 98 09/15/18 23:40 09/15/18 23:50 09/16/18 00:00 Temperature 100.5 F H Pulse Rate 77 76 72 Respiratory Rate 20 20 20 Blood Pressure 92/51 L 85/50 L 108/55 L Pulse Oximetry 100 96 96 09/16/18 00:10 09/16/18 00:20 09/16/18 00:30 Temperature Pulse Rate 73 73 76 Respiratory Rate 20 20 21 Blood Pressure 109/57 L 120/66 114/70 Pulse Oximetry 95 98 85 L 09/16/18 00:40 09/16/18 00:45 09/16/18 01:00 Temperature Pulse Rate 88 79 77 Respiratory Rate 25 H 20 21 Blood Pressure 115/69 97/57 L Pulse Oximetry 90 L 96 88 L 09/16/18 01:15 09/16/18 01:30 09/16/18 01:38 Temperature Pulse Rate 77 78 77 Respiratory Rate 20 20 20 Blood Pressure 89/53 L 87/53 L 85/50 L Pulse Oximetry 92 L 89 L 99 09/16/18 01:45 09/16/18 02:00 09/16/18 02:15 Temperature Pulse Rate 77 72 74 Respiratory Rate 20 20 21 Blood Pressure 86/60 L 88/59 L 101/59 L Pulse Oximetry 99 100 100 09/16/18 02:30 09/16/18 02:45 09/16/18 03:00 Temperature Pulse Rate 73 73 72 Respiratory Rate 21 20 20 Blood Pressure 88/53 L 87/54 L 90/61 L Pulse Oximetry 99 99 99 09/16/18 03:15 09/16/18 03:30 09/16/18 03:45 Temperature Pulse Rate 73 68 79 Respiratory Rate 22 20 45 H Blood Pressure 89/60 L 92/54 L 123/82 Pulse Oximetry 100 100 98 09/16/18 04:00 09/16/18 04:16 09/16/18 04:30 Temperature 99.6 F Pulse Rate 78 75 73 Respiratory Rate 22 21 20 Blood Pressure 128/64 107/54 L 105/51 L Pulse Oximetry 100 100 100 09/16/18 04:33 09/16/18 04:34 09/16/18 04:45 Temperature Pulse Rate 74 72 Respiratory Rate 20 20 21 Blood Pressure 93/50 L Pulse Oximetry 100 100 09/16/18 05:00 09/16/18 05:15 09/16/18 05:30 Temperature Pulse Rate 71 71 69 Respiratory Rate 38 H 57 H 69 H Blood Pressure 89/51 L 82/48 L 82/51 L Pulse Oximetry 100 100 100 09/16/18 05:45 09/16/18 06:00 09/16/18 06:15 Temperature Pulse Rate 67 69 70 Respiratory Rate 67 H 57 H 40 H Blood Pressure 90/52 L 91/52 L 93/53 L Pulse Oximetry 100 99 100 09/16/18 06:30 09/16/18 06:40 09/16/18 06:50 Temperature Pulse Rate 69 74 72 Respiratory Rate 44 H 51 H 47 H Blood Pressure 80/50 L 109/60 109/54 L Pulse Oximetry 100 93 L 100 09/16/18 07:00 09/16/18 07:01 09/16/18 07:10 Temperature Pulse Rate 75 75 76 Respiratory Rate 34 H 34 H 35 H Blood Pressure 130/65 112/57 L Pulse Oximetry 98 99 100 09/16/18 07:20 09/16/18 07:57 09/16/18 08:00 Temperature Pulse Rate 78 67 Respiratory Rate 38 H 16 Blood Pressure 118/78 Pulse Oximetry 97 100 09/16/18 08:03 09/16/18 10:00 09/16/18 11:41 Temperature Pulse Rate 38 L 65 Respiratory Rate 17 Blood Pressure Pulse Oximetry 94 L 09/16/18 11:50 09/16/18 12:29 Temperature Pulse Rate 79 Respiratory Rate 16 16 Blood Pressure Pulse Oximetry Intake & Output 09/15/18 09/16/18 09/16/18 18:59 06:59 18:59 Intake Total 55 / 55 1485 / 1485 Output Total 500 / 500 200 / 200 Balance -445 / -445 1285 / 1285 Weight 140.5 kg Intake: IV 1100 / 1100 NS Inj 1,000 ML @ 84 mls/hr IV. 1000 / 1000 CONT .[id number] [facility] Rx#:[id number] Flexbumin 25% Inj 100 ML @ 60 100 / 100 mls/hr IV.SIG ONCE ONE Rx#: [id number] Tube Feeding 55 / 55 325 / 325 Tube Irrigant 60 / 60 Output: Urine Amount (Catheter) 500 / 500 200 / 200 Straight 500 / 500 200 / 200 Other: Date of Last Bowel Movement 09/13/18 09/13/18 # Bowel Movements 0 0 <Kandavanam ,Nasim - 09/16/18 12:43> Narrative: GENERAL: Intubated on [facility] vent SKIN: Warm and dry. HEAD: Atraumatic. Normocephalic. EYES: Pupils equal and round. No scleral icterus. No injection or drainage. NECK: Trachea midline. No JVD. CARDIOVASCULAR: Regular rate and rhythm. No murmur appreciated. RESPIRATORY: Breath sounds are equal and clear bilaterally with good air movement GASTROINTESTINAL: Abdomen soft, nondistended EXTREMITIES: Early venous stasis changes noted bilaterally. Bilateral 2+ pitting pre-tibial edema <Wolfdavanam ,[facility] - 09/16/18 12:43> - Urinary Catheter Management Straight Cath placed during this visit: no <ClayFilomena gates - 09/17/18 17:34> no <Wolfruby ,[facility] - 09/16/18 12:43> Assessment and Plan - Assessment (1) Acute respiratory failure Code(s): J96.00 - Acute respiratory failure, unspecified whether with hypoxia or hypercapnia Status: Acute (2) RAD (obstructive sleep apnea) Code(s): G47.33 - Obstructive sleep apnea (adult) (pediatric) Status: Acute (3) CHF exacerbation Code(s): I50.9 - Heart failure, unspecified Status: Acute (4) Hypertension Code(s): I10 - Essential (primary) hypertension Status: Acute (5) COPD (chronic obstructive pulmonary disease) Code(s): J44.9 - Chronic obstructive pulmonary disease, unspecified Status: Acute (6) GERD (gastroesophageal reflux disease) Code(s): K21.9 - Gastro-esophageal reflux disease without esophagitis Status: Acute (7) Afib Code(s): I48.91 - Unspecified atrial fibrillation Status: Acute (8) Anxiety Code(s): F41.9 - Anxiety disorder, unspecified Status: Acute (9) Tremors of nervous system Code(s): R25.1 - Tremor, unspecified Status: Acute (10) Chronic back pain Code(s): M54.9 - Dorsalgia, unspecified; G89.29 - Other chronic pain Status: Acute (11) Anemia Code(s): D64.9 - Anemia, unspecified Status: Acute (12) KIKE (acute kidney injury) Code(s): N17.9 - Acute kidney failure, unspecified Status: Acute <Filomena Williamson Silvestre - 09/17/18 17:34> (1) Acute respiratory failure Code(s): J96.00 - Acute respiratory failure, unspecified whether with hypoxia or hypercapnia Status: Acute (2) RAD (obstructive sleep apnea) Code(s): G47.33 - Obstructive sleep apnea (adult) (pediatric) Status: Acute (3) CHF exacerbation Code(s): I50.9 - Heart failure, unspecified Status: Acute (4) Hypertension Code(s): I10 - Essential (primary) hypertension Status: Acute (5) COPD (chronic obstructive pulmonary disease) Code(s): J44.9 - Chronic obstructive pulmonary disease, unspecified Status: Acute (6) GERD (gastroesophageal reflux disease) Code(s): K21.9 - Gastro-esophageal reflux disease without esophagitis Status: Acute (7) Afib Code(s): I48.91 - Unspecified atrial fibrillation Status: Acute (8) Anxiety Code(s): F41.9 - Anxiety disorder, unspecified Status: Acute (9) Tremors of nervous system Code(s): R25.1 - Tremor, unspecified Status: Acute (10) Chronic back pain Code(s): M54.9 - Dorsalgia, unspecified; G89.29 - Other chronic pain Status: Acute (11) Anemia Code(s): D64.9 - Anemia, unspecified Status: Acute (12) KIKE (acute kidney injury) Code(s): N17.9 - Acute kidney failure, unspecified Status: Acute <ElylorNasim Hopkins - 09/16/18 12:35> - Assessment and Plan 63-year-old female presented with shortness of breath presumed to be due to CHFpEF but likely related to her chronic obstructive sleep apnea. The patient was noted to be obtunded this morning with acute respiratory failure and marked CO2 retention requiring emergent intubation with mechanical ventilation. Acute respiratory failure -s/p emergent intubation 214 AM -Critical care has been consulted --Continue mechanical ventilation --Started on midazolam drip, discontinued home lorazepam Obstructive sleep apnea with obesity hypoventilation syndrome -Plan as above -Patient has been refusing CPAP/BiPAP and had reported on day of admission extreme claustrophobia and anxiety when previously trying these therapies -Pulmonology consulted, appreciate recommendations. Patient known to Dr. House -May benefit from nasal prongs if the patient continues to not be interested in CPAP -Continue discussion with patient's daughter regarding need for treatment of this issue. Discussed at length with family consideration for tracheostomy if the patient is unwilling to try CPAP again as she needs treatment for her severe RAD Acute Kidney Injury - IV Lasix has been discontinued - Coello catheter placed for I/Os - Renal US, urine eosinophils, Na and Cr per critical care - Avoid nephrotoxic medications CHF exacerbation -Presumed exacerbation of CHF, diastolic dysfunction -Symptoms are more related towards the patients chronic and untreated RAD -BNP equivocal at 108 on admission -Fluid restrict to 1500 mL of fluid daily -Monitor strict I/O's -Cardiology consulted, appreciate recommendations -Stop furosemide -Spiriva nebulizer 0.5 mg twice daily schedule - patient reports allergy to albuterol -Continue home sotalol Hypertension -Monitor vital signs -Hold home BP medications given low borderline blood pressure with sedation COPD -The patient carries a diagnosis of COPD per chart review -Possible heavy secondhand smoke exposure or symptoms all stemming from RAD Anemia -Patient has chronic anemia -Currently stable, continue to monitor Anxiety -Holding home lorazepam 1 mg p.o. twice daily scheduled GERD -On famotidine for ppx Chronic back pain/arthritis -Allergic to multiple pain medications including ibuprofen and Tylenol, not on any pain medications at home -Consider alternative therapies if needed -PT evaluate and treat while in the hospital once patient extubated FEN/ppx -Diet: Tube feeds with Jevity 1.5 kcal -DVT ppx: Lovenox -GI ppx: Famotidine <Zee GiraldoNasim - 09/16/18 12:43> - Attending Attestation The exam, history, and the medical decision-making described in the above note were completed with the assistance of the resident physician. I reviewed and agree with the findings presented. I attest that I had a [id number] encounter with the patient on the same day, and personally performed and documented my assessment and findings in the medical record. her lungs are clear. suspect all of her breathing problems are from the apnea <Filomena Williamson - 09/17/18 17:34>
[2018-09-16 14:04] LABS: Creatinine,Urine Random 56 mg/dL (27-300); Sodium,Urine Random 105 meq/L
[2018-09-16 15:46] LABS: Bilirubin,Urine Negative (Negative); Clarity,Urine Hazy (Clear); Color,Urine Yellow (Yellw/Straw); Glucose,Urine (UA) Negative (Negative); Hyaline Casts,Urine 10 /lpf (0-3); Leukocyte Esterase,Urine Negative (Negative); Nitrite,Urine Negative (Negative); Specific Gravity,Urine 1.008 (1.002-1.035)
[2018-09-16 16:59] LABS: Calcium 7.6 mg/dL (8.5-10.1); Carbon Dioxide 35.8 meq/L (21.0-32.0); Phosphorus 3.6 mg/dL (2.5-4.9); Potassium 3.4 meq/L (3.5-5.1)
--- NOTE | 2018-09-16 18:51 | P.PN ---
Subjective Interval history: intubated sedated on vent support Physical Exam Vital signs: Vital Signs 09/15/18 19:00 09/15/18 19:30 09/15/18 20:00 Temperature 99.4 F Pulse Rate 81 87 87 Respiratory Rate 20 20 20 Blood Pressure 101/51 L 97/52 L 102/50 L Pulse Oximetry 100 98 99 09/15/18 20:31 09/15/18 20:45 09/15/18 20:47 Temperature Pulse Rate 89 86 Respiratory Rate 19 20 20 Blood Pressure 136/62 Pulse Oximetry 99 99 09/15/18 21:00 09/15/18 21:01 09/15/18 21:31 Temperature Pulse Rate 89 90 89 Respiratory Rate 20 20 20 Blood Pressure 92/43 L 74/36 L Pulse Oximetry 99 99 98 09/15/18 21:33 09/15/18 21:36 09/15/18 21:40 Temperature Pulse Rate 87 87 87 Respiratory Rate 20 20 20 Blood Pressure 73/34 L 77/42 L 81/54 L Pulse Oximetry 98 97 99 09/15/18 21:45 09/15/18 21:50 09/15/18 21:55 Temperature Pulse Rate 88 87 86 Respiratory Rate 20 20 20 Blood Pressure 88/56 L 84/52 L 85/51 L Pulse Oximetry 98 99 98 09/15/18 22:00 09/15/18 22:05 09/15/18 22:10 Temperature Pulse Rate 86 84 83 Respiratory Rate 20 20 20 Blood Pressure 86/54 L 86/51 L 88/52 L Pulse Oximetry 98 98 98 09/15/18 22:15 09/15/18 22:20 09/15/18 22:25 Temperature Pulse Rate 84 83 85 Respiratory Rate 20 20 20 Blood Pressure 91/61 L 93/53 L 93/56 L Pulse Oximetry 99 98 98 09/15/18 22:30 09/15/18 22:35 09/15/18 22:40 Temperature Pulse Rate 84 85 87 Respiratory Rate 20 20 20 Blood Pressure 90/56 L 90/57 L 90/56 L Pulse Oximetry 99 98 98 09/15/18 22:45 09/15/18 22:51 09/15/18 23:00 Temperature Pulse Rate 93 H 88 86 Respiratory Rate 24 20 20 Blood Pressure 83/46 L 96/65 L 92/58 L Pulse Oximetry 99 100 09/15/18 23:10 09/15/18 23:20 09/15/18 23:30 Temperature Pulse Rate 84 81 79 Respiratory Rate 20 20 20 Blood Pressure 92/63 L 93/51 L 90/47 L Pulse Oximetry 100 97 98 09/15/18 23:40 09/15/18 23:50 09/16/18 00:00 Temperature 100.5 F H Pulse Rate 77 76 72 Respiratory Rate 20 20 20 Blood Pressure 92/51 L 85/50 L 108/55 L Pulse Oximetry 100 96 96 09/16/18 00:10 09/16/18 00:20 09/16/18 00:30 Temperature Pulse Rate 73 73 76 Respiratory Rate 20 20 21 Blood Pressure 109/57 L 120/66 114/70 Pulse Oximetry 95 98 85 L 09/16/18 00:40 09/16/18 00:45 09/16/18 01:00 Temperature Pulse Rate 88 79 77 Respiratory Rate 25 H 20 21 Blood Pressure 115/69 97/57 L Pulse Oximetry 90 L 96 88 L 09/16/18 01:15 09/16/18 01:30 09/16/18 01:38 Temperature Pulse Rate 77 78 77 Respiratory Rate 20 20 20 Blood Pressure 89/53 L 87/53 L 85/50 L Pulse Oximetry 92 L 89 L 99 09/16/18 01:45 09/16/18 02:00 09/16/18 02:15 Temperature Pulse Rate 77 72 74 Respiratory Rate 20 20 21 Blood Pressure 86/60 L 88/59 L 101/59 L Pulse Oximetry 99 100 100 09/16/18 02:30 09/16/18 02:45 09/16/18 03:00 Temperature Pulse Rate 73 73 72 Respiratory Rate 21 20 20 Blood Pressure 88/53 L 87/54 L 90/61 L Pulse Oximetry 99 99 99 09/16/18 03:15 09/16/18 03:30 09/16/18 03:45 Temperature Pulse Rate 73 68 79 Respiratory Rate 22 20 45 H Blood Pressure 89/60 L 92/54 L 123/82 Pulse Oximetry 100 100 98 09/16/18 04:00 09/16/18 04:16 09/16/18 04:30 Temperature 99.6 F Pulse Rate 78 75 73 Respiratory Rate 22 21 20 Blood Pressure 128/64 107/54 L 105/51 L Pulse Oximetry 100 100 100 09/16/18 04:33 09/16/18 04:34 09/16/18 04:45 Temperature Pulse Rate 74 72 Respiratory Rate 20 20 21 Blood Pressure 93/50 L Pulse Oximetry 100 100 09/16/18 05:00 09/16/18 05:15 09/16/18 05:30 Temperature Pulse Rate 71 71 69 Respiratory Rate 38 H 57 H 69 H Blood Pressure 89/51 L 82/48 L 82/51 L Pulse Oximetry 100 100 100 09/16/18 05:45 09/16/18 06:00 09/16/18 06:15 Temperature Pulse Rate 67 69 70 Respiratory Rate 67 H 57 H 40 H Blood Pressure 90/52 L 91/52 L 93/53 L Pulse Oximetry 100 99 100 09/16/18 06:30 09/16/18 06:40 09/16/18 06:50 Temperature Pulse Rate 69 74 72 Respiratory Rate 44 H 51 H 47 H Blood Pressure 80/50 L 109/60 109/54 L Pulse Oximetry 100 93 L 100 09/16/18 07:00 09/16/18 07:01 09/16/18 07:10 Temperature Pulse Rate 75 75 76 Respiratory Rate 34 H 34 H 35 H Blood Pressure 130/65 112/57 L Pulse Oximetry 98 99 100 09/16/18 07:20 09/16/18 07:57 09/16/18 08:00 Temperature Pulse Rate 78 67 Respiratory Rate 38 H 16 Blood Pressure 118/78 Pulse Oximetry 97 100 09/16/18 08:03 09/16/18 09:30 09/16/18 10:00 Temperature Pulse Rate 38 L 65 Respiratory Rate 17 16 Blood Pressure 93/53 L 95/53 L Pulse Oximetry 97 09/16/18 10:30 09/16/18 11:00 09/16/18 11:01 Temperature Pulse Rate 70 83 83 Respiratory Rate 34 H 38 H 37 H Blood Pressure 100/57 L 112/67 Pulse Oximetry 98 99 98 09/16/18 11:30 09/16/18 11:41 09/16/18 11:50 Temperature Pulse Rate 101 H 88 Respiratory Rate 43 H 25 H Blood Pressure 181/117 H 179/97 H Pulse Oximetry 71 L 94 L 99 09/16/18 11:53 09/16/18 11:55 09/16/18 11:57 Temperature Pulse Rate 82 85 88 Respiratory Rate 27 H 23 19 Blood Pressure 138/79 119/73 124/79 Pulse Oximetry 98 95 93 L 09/16/18 12:00 09/16/18 12:02 09/16/18 12:05 Temperature Pulse Rate 66 84 83 Respiratory Rate 21 17 15 Blood Pressure 136/88 135/85 131/88 Pulse Oximetry 99 93 L 94 L 09/16/18 12:07 09/16/18 12:10 09/16/18 12:12 Temperature Pulse Rate 82 80 80 Respiratory Rate 16 17 16 Blood Pressure 123/83 121/78 127/71 Pulse Oximetry 95 96 96 09/16/18 12:15 09/16/18 12:29 09/16/18 12:30 Temperature Pulse Rate 79 79 78 Respiratory Rate 20 16 16 Blood Pressure 125/73 115/73 Pulse Oximetry 97 97 09/16/18 12:45 09/16/18 13:00 09/16/18 13:15 Temperature Pulse Rate 75 72 72 Respiratory Rate 16 16 16 Blood Pressure 103/67 85/56 L 80/53 L Pulse Oximetry 98 96 95 09/16/18 13:30 09/16/18 13:36 09/16/18 13:45 Temperature Pulse Rate 70 68 68 Respiratory Rate 16 22 37 H Blood Pressure 79/50 L 83/54 L 86/52 L Pulse Oximetry 96 96 98 09/16/18 14:00 09/16/18 14:15 09/16/18 15:00 Temperature Pulse Rate 67 66 64 Respiratory Rate 29 H 52 H 16 Blood Pressure 97/52 L 96/55 L 92/58 L Pulse Oximetry 95 95 96 09/16/18 16:00 09/16/18 16:21 09/16/18 17:00 Temperature 99 F Pulse Rate 66 67 Respiratory Rate 21 16 20 Blood Pressure 106/64 94/62 L Pulse Oximetry 97 97 96 09/16/18 18:00 Temperature Pulse Rate 73 Respiratory Rate 18 Blood Pressure 105/63 Pulse Oximetry 96 Intake & Output 09/15/18 09/16/18 09/16/18 18:59 06:59 18:59 Intake Total 55 / 55 1485 / 1485 2340 / 2340 Output Total 500 / 500 200 / 200 300 / 300 Balance -445 / -445 1285 / 1285 2040 / 2040 Weight 140.5 kg Intake: IV 1100 / 1100 2340 / 2340 Versed Inj 100 mg In 100 ml @ 2 80 / 80 MG/HR 2 mls/hr IV.CONT TITRATE PRN Rx#:[id number] NS Inj 1,000 ML @ 84 mls/hr IV. 1000 / 1000 1000 / 1000 CONT .[id number] PABLO Rx#:[id number] Flexbumin 25% Inj 100 ML @ 60 100 / 100 mls/hr IV.SIG ONCE ONE Rx#: [id number] Potassium Phosphate Inj 30 MMOL 260 / 260 In NS Inj 250 ML @ 42 mls/hr IV.SIG UNSCH PRN Rx#:[id number] NS Inj 2,000 ML @ Wide Open IV. 1000 / 1000 SIG BOLUS ONE Rx#:[id number] Tube Feeding 55 / 55 325 / 325 Tube Irrigant 60 / 60 Output: Urine Amount (Catheter) 500 / 500 200 / 200 300 / 300 Straight 500 / 500 200 / 200 300 / 300 Other: Date of Last Bowel Movement 09/13/18 09/13/18 09/13/18 # Bowel Movements 0 0 0 Narrative: GENERAL: Intubated on [facility] vent SKIN: Warm and dry. HEAD: Atraumatic. Normocephalic. EYES: Pupils equal and round. No scleral icterus. No injection or drainage. NECK: Trachea midline. No JVD. CARDIOVASCULAR: Regular rate and rhythm. No murmur appreciated. RESPIRATORY: Breath sounds are equal and clear bilaterally with good air movement GASTROINTESTINAL: Abdomen soft, nondistended EXTREMITIES: Early venous stasis changes noted bilaterally. Bilateral 2+ pitting pre-tibial edema - Urinary Catheter Management Straight Cath placed during this visit: yes Reason for continuing: Acute urinary retention Insertion date: 09/16/18 Insertion time: 10:10 Results - Labs CBC & Chem 7: 09/16/18 06:10 09/16/18 16:08 Laboratory Results - last 24 hr 09/16/18 09/16/18 09/16/18 00:23 05:06 05:32 WBC RBC Hgb Hct MCV MCH MCHC RDW Plt Count MPV Neut % (Auto) Lymph % (Auto) [place] % (Auto) Eos % (Auto) Baso % (Auto) Neut # (Auto) Lymph # (Auto) [place] # (Auto) Eos # (Auto) Baso # (Auto) WBC Differential Differential Comment Puncture Site Right radial Patient Temperature 98.6 O2 Saturation 95 ABG pH 7.64 H* ABG pCO2 35 L ABG pO2 75 ABG HCO3 38 H ABG O2 Content 12.5 ABG Base Excess 15.1 H ABG Methemoglobin 1.5 Nilesh Test Present Hemoglobin 9.3 L Carboxyhemoglobin 1.3 O2 Delivery Device Ventilator Vent Setting Prvc/ac 20 vt 600 Inspired O2 40 Critical Value Yes Sodium Potassium Chloride Carbon Dioxide Anion Gap BUN Creatinine Estimated GFR POC Glucose 129 H 116 H Random Glucose Calcium Phosphorus Magnesium Total Bilirubin AST ALT Alkaline Phosphatase Total Protein Albumin Urine Color Urine Clarity Urine pH Ur Specific [place] Urine Protein Urine Glucose (UA) Urine Ketones Urine Occult Blood Urine Nitrate Urine Bilirubin Urine Urobilinogen Ur Leukocyte Esterase Urine RBC Hyaline Casts Micro UA Comment Ur Microscopic Review Urine Culture Comments Ur Random Creatinine Ur Random Sodium 09/16/18 09/16/18 09/16/18 06:10 06:10 10:10 WBC 9.9 RBC 3.49 L Hgb 9.6 L Hct 30.2 L MCV 86.4 MCH 27.6 MCHC 32.0 RDW 15.5 Plt Count 217 MPV 8.3 Neut % (Auto) 73.3 H Lymph % (Auto) 14.6 [place] % (Auto) 10.3 H Eos % (Auto) 1.6 Baso % (Auto) 0.2 Neut # (Auto) 7.2 Lymph # (Auto) 1.4 [place] # (Auto) 1.0 H Eos # (Auto) 0.2 Baso # (Auto) 0.0 WBC Differential . Differential Comment Auto diff final Puncture Site Patient Temperature O2 Saturation ABG pH ABG pCO2 ABG pO2 ABG HCO3 ABG O2 Content ABG Base Excess ABG Methemoglobin Nilesh Test Hemoglobin Carboxyhemoglobin O2 Delivery Device Vent Setting Inspired O2 Critical Value Sodium 144 Potassium 3.1 L Chloride 98 Carbon Dioxide 41.2 H Anion Gap 5 BUN 28 H Creatinine 2.28 H Estimated GFR 22 L POC Glucose Random Glucose 135 H Calcium 8.6 Phosphorus 0.7 L D Magnesium 2.1 Total Bilirubin 0.9 AST 22 ALT 12 Alkaline Phosphatase 86 Total Protein 6.5 D Albumin 3.0 L Urine Color Urine Clarity Urine pH Ur Specific [place] Urine Protein Urine Glucose (UA) Urine Ketones Urine Occult Blood Urine Nitrate Urine Bilirubin Urine Urobilinogen Ur Leukocyte Esterase Urine RBC Hyaline Casts Micro UA Comment Ur Microscopic Review Urine Culture Comments Ur Random Creatinine 56 Ur Random Sodium 105 09/16/18 09/16/18 09/16/18 10:10 12:33 13:42 WBC RBC Hgb Hct MCV MCH MCHC RDW Plt Count MPV Neut % (Auto) Lymph % (Auto) [place] % (Auto) Eos % (Auto) Baso % (Auto) Neut # (Auto) Lymph # (Auto) [place] # (Auto) Eos # (Auto) Baso # (Auto) WBC Differential Differential Comment Puncture Site Left radial Patient Temperature 98.6 O2 Saturation 94 ABG pH 7.40 ABG pCO2 57 H* ABG pO2 84 ABG HCO3 35 H ABG O2 Content 12.4 ABG Base Excess 9.9 H ABG Methemoglobin 1.6 Nilesh Test Present Hemoglobin 9.3 L Carboxyhemoglobin 1.1 O2 Delivery Device Ventilator Vent Setting Inspired O2 40 Critical Value Yes Sodium Potassium Chloride Carbon Dioxide Anion Gap BUN Creatinine Estimated GFR POC Glucose 124 H Random Glucose Calcium Phosphorus Magnesium Total Bilirubin AST ALT Alkaline Phosphatase Total Protein Albumin Urine Color Yellow Urine Clarity Hazy H Urine pH 7.0 Ur Specific [place] 1.008 Urine Protein Negative Urine Glucose (UA) Negative Urine Ketones Negative Urine Occult Blood Moderate H Urine Nitrate Negative Urine Bilirubin Negative Urine Urobilinogen Less than 2 Ur Leukocyte Esterase Negative Urine RBC 31 H Hyaline Casts 10 Micro UA Comment Cath-culture not ind Ur Microscopic Review Not Reportable Urine Culture Comments Cath-cult not ind Ur Random Creatinine Ur Random Sodium 09/16/18 09/16/18 16:08 17:47 WBC RBC Hgb Hct MCV MCH MCHC RDW Plt Count MPV Neut % (Auto) Lymph % (Auto) [place] % (Auto) Eos % (Auto) Baso % (Auto) Neut # (Auto) Lymph # (Auto) [place] # (Auto) Eos # (Auto) Baso # (Auto) WBC Differential Differential Comment Puncture Site Patient Temperature O2 Saturation ABG pH ABG pCO2 ABG pO2 ABG HCO3 ABG O2 Content ABG Base Excess ABG Methemoglobin Nilesh Test Hemoglobin Carboxyhemoglobin O2 Delivery Device Vent Setting Inspired O2 Critical Value Sodium 147 H Potassium 3.4 L Chloride 104 Carbon Dioxide 35.8 H Anion Gap 7 BUN 28 H Creatinine 2.32 H Estimated GFR 21 L POC Glucose 101 Random Glucose 114 H Calcium 7.6 L D Phosphorus 3.6 D Magnesium 2.0 Total Bilirubin AST ALT Alkaline Phosphatase Total Protein Albumin Urine Color Urine Clarity Urine pH Ur Specific [place] Urine Protein Urine Glucose (UA) Urine Ketones Urine Occult Blood Urine Nitrate Urine Bilirubin Urine Urobilinogen Ur Leukocyte Esterase Urine RBC Hyaline Casts Micro UA Comment Ur Microscopic Review Urine Culture Comments Ur Random Creatinine Ur Random Sodium Microbiology 09/15/18 10:20 Sputum - Endotracheal Gram Stain - Final 09/15/18 10:20 Sputum - Endotracheal Sputum Culture - Preliminary Heavy growth normal respiratory zaida at 24 hours 09/15/18 17:35 Nasal Wash Influenza Types A,B Antigen - Final Negative for FLU A and B antigen Infection due to influenza A or B cannot be ruled out since the antigen present in the sample may be below the detection limit of the test. - Imaging Impressions Abdomen/Bladder Ultrasound 09/16/18 08:29 CONCLUSION: 1. Negative renal sonogram other than right renal cyst. Chest X-Ray 09/16/18 11:55 CONCLUSION: 1. The endotracheal tube appears to be in good position. 2. No evidence of pneumothorax. Assessment and Plan - Plan RESPIRATORY FAILURE COPD CHF RAD AFIB PLAN vent support bronchodilator therapy wean as tolerated
[2018-09-17] MEDS: Insulin NovoLOG Aspart Correctional Sugar Inj SQ SCH ×4 (00:13→17:18)
[2018-09-17] MEDS: Oral Hygiene Kit OROPHARYNG SCH ×4 (00:13→16:05)
[2018-09-17] MEDS: Artificial Tears Opth Drops 15 ML Bottle EACH EYE SCH ×3 (03:16→17:53)
[2018-09-17] MEDS: Dexmedetomidine Inj 200 MCG in Sodium Chlor 0.9% Inj 48 ML IV.CONT PRN ×4 (03:17→20:24)
[2018-09-17] MEDS: Sod Chloride 0.9% Inj 1,000 ML IV.CONT SCH ×2 (05:14→16:04)
[2018-09-17 07:22] LABS: Baso # (Auto) 0.1 th/mm3 (0.0-0.2); Baso % (Auto) 0.6 % (0.0-2.0); Eos # (Auto) 0.3 th/mm3 (0.0-0.4); Eos % (Auto) 2.7 % (0.0-4.0); Hematocrit 28.2 % (35.0-46.0); Lymph # (Auto) 1.4 th/mm3 (1.0-4.8); Lymph % (Auto) 14.7 % (9.0-44.0); Mean Corpuscular HGB Conc 31.8 % (32.0-36.0); Mean Corpuscular Hemoglobin 27.7 pg (27.0-34.0); Mean Corpuscular Volume 87.1 fL (80.0-100.0); Mean Platelet Volume 8.2 fL (7.0-11.0); Mono # (Auto) 0.7 th/mm3 (0.0-0.9); Mono % (Auto) 7.6 % (0.0-8.0); Neut # (Auto) 6.9 th/mm3 (1.8-7.7); Neut % (Auto) 74.4 % (16.0-70.0); Platelet Count 182 th/mm3 (150-450); Red Blood Count 3.23 mil/mm3 (4.00-5.30); Red Cell Distribution Width 16.2 % (11.6-17.2); White Blood Count 9.3 th/mm3 (4.0-11.0)
[2018-09-17 07:39] LABS: Calcium 7.9 mg/dL (8.5-10.1); Carbon Dioxide 30.8 meq/L (21.0-32.0); Phosphorus 2.4 mg/dL (2.5-4.9); Potassium 3.1 meq/L (3.5-5.1)
--- NOTE | 2018-09-17 09:06 | P.PNFP ---
Subjective Interval history: Intubated on mechanical ventilation. Sedated. 600 cc UOP past 24 hours. <Nasim Villanueva - 09/17/18 09:38> Results - Labs Result diagrams: 09/17/18 06:41 09/17/18 06:41 <Filomena Williamson - 09/17/18 17:37> Abnormal lab results 09/16/18 09/17/18 09/17/18 Range/Units 23:47 05:08 06:41 RBC 3.23 L (4.00-5.30) mil/mm3 Hgb 9.0 L (11.6-15.3) gm/dL Hct 28.2 L (35.0-46.0) % MCHC 31.8 L (32.0-36.0) % Neut % (Auto) 74.4 H (16.0-70.0) % Sodium (136-145) meq/L Potassium (3.5-5.1) meq/L BUN (7-18) mg/dL Creatinine (0.50-1.00) mg/dL Estimated GFR (>89) mL/min POC Glucose 121 H 120 H (68-110) mg/dl Random Glucose (74-106) mg/dL Calcium (8.5-10.1) mg/dL Phosphorus (2.5-4.9) mg/dL 09/17/18 09/17/18 09/17/18 Range/Units 06:41 12:06 17:09 RBC (4.00-5.30) mil/mm3 Hgb (11.6-15.3) gm/dL Hct (35.0-46.0) % MCHC (32.0-36.0) % Neut % (Auto) (16.0-70.0) % Sodium 146 H (136-145) meq/L Potassium 3.1 L (3.5-5.1) meq/L BUN 26 H (7-18) mg/dL Creatinine 1.79 H (0.50-1.00) mg/dL Estimated GFR 29 L (>89) mL/min POC Glucose 131 H 125 H (68-110) mg/dl Random Glucose 120 H (74-106) mg/dL Calcium 7.9 L (8.5-10.1) mg/dL Phosphorus 2.4 L D (2.5-4.9) mg/dL Short CBC 09/17/18 Range/Units 06:41 WBC 9.3 (4.0-11.0) th/mm3 Hgb 9.0 L (11.6-15.3) gm/dL Hct 28.2 L (35.0-46.0) % Plt Count 182 (150-450) th/mm3 BMP 09/17/18 06:41 Sodium 146 H Potassium 3.1 L Chloride 106 Carbon Dioxide 30.8 BUN 26 H Creatinine 1.79 H Calcium 7.9 L <Filomena Williamson - 09/17/18 17:37> Abnormal lab results 09/16/18 09/16/18 09/16/18 Range/Units 10:10 12:33 13:42 RBC (4.00-5.30) mil/mm3 Hgb (11.6-15.3) gm/dL Hct (35.0-46.0) % MCHC (32.0-36.0) % Neut % (Auto) (16.0-70.0) % ABG pCO2 57 H* (38-42) mmHg ABG HCO3 35 H (22-26) mmol/L ABG Base Excess 9.9 H (-2-2) mmol/L Hemoglobin 9.3 L (12.0-16.0) G/DL Sodium (136-145) meq/L Potassium (3.5-5.1) meq/L Carbon Dioxide (21.0-32.0) meq/L BUN (7-18) mg/dL Creatinine (0.50-1.00) mg/dL Estimated GFR (>89) mL/min POC Glucose 124 H (68-110) mg/dl Random Glucose (74-106) mg/dL Calcium (8.5-10.1) mg/dL Phosphorus (2.5-4.9) mg/dL Urine Clarity Hazy H (Clear) Urine Occult Blood Moderate H (Negative) Urine RBC 31 H (0-3) /hpf 09/16/18 09/16/18 09/17/18 Range/Units 16:08 23:47 05:08 RBC (4.00-5.30) mil/mm3 Hgb (11.6-15.3) gm/dL Hct (35.0-46.0) % MCHC (32.0-36.0) % Neut % (Auto) (16.0-70.0) % ABG pCO2 (38-42) mmHg ABG HCO3 (22-26) mmol/L ABG Base Excess (-2-2) mmol/L Hemoglobin (12.0-16.0) G/DL Sodium 147 H (136-145) meq/L Potassium 3.4 L (3.5-5.1) meq/L Carbon Dioxide 35.8 H (21.0-32.0) meq/L BUN 28 H (7-18) mg/dL Creatinine 2.32 H (0.50-1.00) mg/dL Estimated GFR 21 L (>89) mL/min POC Glucose 121 H 120 H (68-110) mg/dl Random Glucose 114 H (74-106) mg/dL Calcium 7.6 L D (8.5-10.1) mg/dL Phosphorus (2.5-4.9) mg/dL Urine Clarity (Clear) Urine Occult Blood (Negative) Urine RBC (0-3) /hpf 09/17/18 09/17/18 Range/Units 06:41 06:41 RBC 3.23 L (4.00-5.30) mil/mm3 Hgb 9.0 L (11.6-15.3) gm/dL Hct 28.2 L (35.0-46.0) % MCHC 31.8 L (32.0-36.0) % Neut % (Auto) 74.4 H (16.0-70.0) % ABG pCO2 (38-42) mmHg ABG HCO3 (22-26) mmol/L ABG Base Excess (-2-2) mmol/L Hemoglobin (12.0-16.0) G/DL Sodium 146 H (136-145) meq/L Potassium 3.1 L (3.5-5.1) meq/L Carbon Dioxide (21.0-32.0) meq/L BUN 26 H (7-18) mg/dL Creatinine 1.79 H (0.50-1.00) mg/dL Estimated GFR 29 L (>89) mL/min POC Glucose (68-110) mg/dl Random Glucose 120 H (74-106) mg/dL Calcium 7.9 L (8.5-10.1) mg/dL Phosphorus 2.4 L D (2.5-4.9) mg/dL Urine Clarity (Clear) Urine Occult Blood (Negative) Urine RBC (0-3) /hpf Short CBC 09/17/18 Range/Units 06:41 WBC 9.3 (4.0-11.0) th/mm3 Hgb 9.0 L (11.6-15.3) gm/dL Hct 28.2 L (35.0-46.0) % Plt Count 182 (150-450) th/mm3 BMP 09/16/18 09/17/18 16:08 06:41 Sodium 147 H 146 H Potassium 3.4 L 3.1 L Chloride 104 106 Carbon Dioxide 35.8 H 30.8 BUN 28 H 26 H Creatinine 2.32 H 1.79 H Calcium 7.6 L D 7.9 L Urine 09/16/18 Range/Units 10:10 Urine Color Yellow (Yellw/Straw) Urine Clarity Hazy H (Clear) Urine pH 7.0 (5.0-8.5) Ur Specific [place] 1.008 (1.002-1.035) Urine Protein Negative (Neg-Trace) mg/dL Urine Glucose (UA) Negative (Negative) mg/dL <Zee [address] - 09/17/18 09:06> - Imaging Impressions Abdomen/Bladder Ultrasound 09/16/18 08:29 CONCLUSION: 1. Negative renal sonogram other than right renal cyst. Chest X-Ray 09/16/18 11:55 CONCLUSION: 1. The endotracheal tube appears to be in good position. 2. No evidence of pneumothorax. <Zee [address] - 09/17/18 09:06> Physical Exam Vital signs: Vital Signs 09/16/18 17:45 09/16/18 18:00 09/16/18 18:30 Temperature Pulse Rate 69 73 71 Respiratory Rate 23 18 21 Blood Pressure 104/57 L 105/63 111/64 Pulse Oximetry 96 96 98 09/16/18 19:00 09/16/18 19:30 09/16/18 20:00 Temperature 100.2 F H Pulse Rate 76 78 73 Respiratory Rate 25 H 31 H 29 H Blood Pressure 111/71 102/65 106/55 L Pulse Oximetry 98 96 97 09/16/18 20:30 09/16/18 20:59 09/16/18 21:00 Temperature Pulse Rate 71 69 70 Respiratory Rate 21 16 24 Blood Pressure 101/68 102/62 Pulse Oximetry 97 97 09/16/18 21:30 09/16/18 22:00 09/16/18 22:30 Temperature Pulse Rate 67 67 66 Respiratory Rate 27 H 20 26 H Blood Pressure 93/60 L 95/59 L 91/54 L Pulse Oximetry 97 97 97 09/16/18 23:00 09/16/18 23:30 09/17/18 00:00 Temperature 100 F H Pulse Rate 66 66 77 Respiratory Rate 20 22 24 Blood Pressure 95/56 L 88/61 L 135/77 Pulse Oximetry 97 96 97 09/17/18 00:08 09/17/18 00:30 09/17/18 01:00 Temperature Pulse Rate 73 72 70 Respiratory Rate 16 16 20 Blood Pressure 103/66 105/63 Pulse Oximetry 98 98 98 09/17/18 01:30 09/17/18 02:00 09/17/18 02:30 Temperature Pulse Rate 98 H 66 65 Respiratory Rate 23 18 16 Blood Pressure 109/69 100/56 L 96/58 L Pulse Oximetry 97 96 96 09/17/18 03:00 09/17/18 03:55 09/17/18 04:00 Temperature 99.9 F H Pulse Rate 65 66 66 Respiratory Rate 19 16 21 Blood Pressure 100/69 108/66 107/67 Pulse Oximetry 96 98 98 09/17/18 04:12 09/17/18 04:30 09/17/18 05:00 Temperature Pulse Rate 66 63 59 L Respiratory Rate 16 30 H 38 H Blood Pressure 102/68 128/69 Pulse Oximetry 98 98 98 09/17/18 05:30 09/17/18 06:00 09/17/18 06:30 Temperature Pulse Rate 55 L 53 L 53 L Respiratory Rate 36 H 41 H 34 H Blood Pressure 131/67 132/70 136/74 Pulse Oximetry 97 97 97 09/17/18 07:00 09/17/18 07:30 09/17/18 08:00 Temperature 98.4 F Pulse Rate 54 L 51 L 52 L Respiratory Rate 16 36 H 16 Blood Pressure 138/73 136/71 136/70 Pulse Oximetry 97 97 97 09/17/18 08:30 09/17/18 09:00 09/17/18 09:30 Temperature Pulse Rate 54 L 56 L 62 Respiratory Rate 16 16 16 Blood Pressure 133/69 128/69 141/78 H Pulse Oximetry 97 97 98 09/17/18 10:00 09/17/18 10:30 09/17/18 11:00 Temperature Pulse Rate 59 L 49 L 50 L Respiratory Rate 16 16 16 Blood Pressure 151/89 H 136/71 138/69 Pulse Oximetry 99 97 98 09/17/18 11:30 09/17/18 12:00 09/17/18 12:30 Temperature 99 F Pulse Rate 52 L 51 L 56 L Respiratory Rate 36 H 34 H 33 H Blood Pressure 138/78 149/70 H 145/85 H Pulse Oximetry 97 98 98 09/17/18 13:00 09/17/18 13:30 09/17/18 13:32 Temperature Pulse Rate 50 L 86 61 Respiratory Rate 35 H 23 19 Blood Pressure 146/77 H 225/98 H 194/92 H Pulse Oximetry 98 97 99 09/17/18 13:52 09/17/18 14:00 09/17/18 15:00 Temperature Pulse Rate 46 L 48 L 67 Respiratory Rate 25 H 33 H 21 Blood Pressure 162/71 H 147/86 H 142/65 H Pulse Oximetry 98 98 97 09/17/18 15:55 09/17/18 16:00 09/17/18 17:00 Temperature 97.8 F Pulse Rate 63 62 Respiratory Rate 15 18 14 Blood Pressure 151/78 H 143/85 H Pulse Oximetry 99 100 100 Intake & Output 09/16/18 09/17/18 09/17/18 18:59 06:59 18:59 Intake Total 2340 / 2340 1100 / 1100 1100 / 1100 Output Total 300 / 300 300 / 300 Balance 2040 / 2040 800 / 800 1100 / 1100 Weight 143.2 kg Intake: IV 2340 / 2340 1100 / 1100 1100 / 1100 Precedex Inj 200 MCG In NS Inj 100 / 100 100 / 100 48 ML @ 0.1 MCG/KG/HR 3.51 mls/ hr IV.CONT TITRATE PRN Rx#: [id number] Versed Inj 100 mg In 100 ml @ 2 80 / 80 MG/HR 2 mls/hr IV.CONT TITRATE PRN Rx#:[id number] NS Inj 1,000 ML @ 84 mls/hr IV. 1000 / 1000 1000 / 1000 1000 / 1000 CONT .[id number] [facility] Rx#:[id number] Potassium Phosphate Inj 30 MMOL 260 / 260 In NS Inj 250 ML @ 42 mls/hr IV.SIG UNSCH PRN Rx#:[id number] NS Inj 2,000 ML @ Wide Open IV. 1000 / 1000 SIG BOLUS ONE Rx#:[id number] Tube Feeding 0 / 0 Output: Urine 0 / 0 Urine Amount (Catheter) 300 / 300 300 / 300 Indwelling Urethral Catheter 300 / 300 Straight 300 / 300 Other: # Voids 0 # Urine Diapers 0 Date of Last Bowel Movement 09/13/18 09/13/18 09/13/18 # Bowel Movements 0 0 <Filomena Williamson - 09/17/18 17:37> Vital Signs 09/16/18 09:30 09/16/18 10:00 09/16/18 10:30 Temperature Pulse Rate 65 70 Respiratory Rate 16 34 H Blood Pressure 93/53 L 95/53 L 100/57 L Pulse Oximetry 97 98 09/16/18 11:00 09/16/18 11:01 09/16/18 11:30 Temperature Pulse Rate 83 83 101 H Respiratory Rate 38 H 37 H 43 H Blood Pressure 112/67 181/117 H Pulse Oximetry 99 98 71 L 09/16/18 11:41 09/16/18 11:50 09/16/18 11:53 Temperature Pulse Rate 88 82 Respiratory Rate 25 H 27 H Blood Pressure 179/97 H 138/79 Pulse Oximetry 94 L 99 98 09/16/18 11:55 09/16/18 11:57 09/16/18 12:00 Temperature Pulse Rate 85 88 66 Respiratory Rate 23 19 21 Blood Pressure 119/73 124/79 136/88 Pulse Oximetry 95 93 L 99 09/16/18 12:02 09/16/18 12:05 09/16/18 12:07 Temperature Pulse Rate 84 83 82 Respiratory Rate 17 15 16 Blood Pressure 135/85 131/88 123/83 Pulse Oximetry 93 L 94 L 95 09/16/18 12:10 09/16/18 12:12 09/16/18 12:15 Temperature Pulse Rate 80 80 79 Respiratory Rate 17 16 20 Blood Pressure 121/78 127/71 125/73 Pulse Oximetry 96 96 97 09/16/18 12:29 09/16/18 12:30 09/16/18 12:45 Temperature Pulse Rate 79 78 75 Respiratory Rate 16 16 16 Blood Pressure 115/73 103/67 Pulse Oximetry 97 98 09/16/18 13:00 09/16/18 13:15 09/16/18 13:30 Temperature Pulse Rate 72 72 70 Respiratory Rate 16 16 16 Blood Pressure 85/56 L 80/53 L 79/50 L Pulse Oximetry 96 95 96 09/16/18 13:36 09/16/18 13:45 09/16/18 14:00 Temperature Pulse Rate 68 68 67 Respiratory Rate 22 37 H 29 H Blood Pressure 83/54 L 86/52 L 97/52 L Pulse Oximetry 96 98 95 09/16/18 14:15 09/16/18 14:30 09/16/18 14:45 Temperature Pulse Rate 66 66 65 Respiratory Rate 52 H 36 H 30 H Blood Pressure 96/55 L 95/56 L 92/56 L Pulse Oximetry 95 96 96 09/16/18 15:00 09/16/18 15:15 09/16/18 15:30 Temperature Pulse Rate 64 63 64 Respiratory Rate 35 H 19 16 Blood Pressure 92/58 L 102/62 98/62 L Pulse Oximetry 96 96 97 09/16/18 15:45 09/16/18 16:00 09/16/18 16:15 Temperature 99 F Pulse Rate 65 66 66 Respiratory Rate 17 21 17 Blood Pressure 105/59 L 106/64 109/66 Pulse Oximetry 96 97 97 09/16/18 16:21 09/16/18 16:30 09/16/18 16:45 Temperature Pulse Rate 66 66 Respiratory Rate 16 16 18 Blood Pressure 97/59 L 101/64 Pulse Oximetry 97 97 96 09/16/18 17:00 09/16/18 17:15 09/16/18 17:30 Temperature Pulse Rate 67 67 67 Respiratory Rate 20 19 20 Blood Pressure 94/62 L 90/60 L 102/57 L Pulse Oximetry 96 96 96 09/16/18 17:45 09/16/18 18:00 09/16/18 18:30 Temperature Pulse Rate 69 73 71 Respiratory Rate 23 18 21 Blood Pressure 104/57 L 105/63 111/64 Pulse Oximetry 96 96 98 09/16/18 19:00 09/16/18 19:30 09/16/18 20:00 Temperature 100.2 F H Pulse Rate 76 78 73 Respiratory Rate 25 H 31 H 29 H Blood Pressure 111/71 102/65 106/55 L Pulse Oximetry 98 96 97 09/16/18 20:30 09/16/18 20:59 09/16/18 21:00 Temperature Pulse Rate 71 69 70 Respiratory Rate 21 16 24 Blood Pressure 101/68 102/62 Pulse Oximetry 97 97 09/16/18 21:30 09/16/18 22:00 09/16/18 22:30 Temperature Pulse Rate 67 67 66 Respiratory Rate 27 H 20 26 H Blood Pressure 93/60 L 95/59 L 91/54 L Pulse Oximetry 97 97 97 09/16/18 23:00 09/16/18 23:30 09/17/18 00:00 Temperature 100 F H Pulse Rate 66 66 77 Respiratory Rate 20 22 24 Blood Pressure 95/56 L 88/61 L 135/77 Pulse Oximetry 97 96 97 09/17/18 00:08 09/17/18 00:30 09/17/18 01:00 Temperature Pulse Rate 73 72 70 Respiratory Rate 16 16 20 Blood Pressure 103/66 105/63 Pulse Oximetry 98 98 98 09/17/18 01:30 09/17/18 02:00 09/17/18 02:30 Temperature Pulse Rate 98 H 66 65 Respiratory Rate 23 18 16 Blood Pressure 109/69 100/56 L 96/58 L Pulse Oximetry 97 96 96 09/17/18 03:00 09/17/18 03:55 09/17/18 04:00 Temperature 99.9 F H Pulse Rate 65 66 66 Respiratory Rate 19 16 21 Blood Pressure 100/69 108/66 107/67 Pulse Oximetry 96 98 98 09/17/18 04:12 09/17/18 04:30 09/17/18 05:00 Temperature Pulse Rate 66 63 59 L Respiratory Rate 16 30 H 38 H Blood Pressure 102/68 128/69 Pulse Oximetry 98 98 98 09/17/18 05:30 09/17/18 06:00 09/17/18 06:30 Temperature Pulse Rate 55 L 53 L 53 L Respiratory Rate 36 H 41 H 34 H Blood Pressure 131/67 132/70 136/74 Pulse Oximetry 97 97 97 09/17/18 07:00 09/17/18 07:30 Temperature Pulse Rate 54 L 51 L Respiratory Rate 16 36 H Blood Pressure 138/73 136/71 Pulse Oximetry 97 97 Intake & Output 09/16/18 09/17/18 09/17/18 18:59 06:59 18:59 Intake Total 2340 / 2340 1100 / 1100 50 / 50 Output Total 300 / 300 300 / 300 Balance 2040 / 2040 800 / 800 50 / 50 Weight 143.2 kg Intake: IV 2340 / 2340 1100 / 1100 50 / 50 Precedex Inj 200 MCG In NS Inj 100 / 100 50 / 50 48 ML @ 0.1 MCG/KG/HR 3.51 mls/ hr IV.CONT TITRATE PRN Rx#: [id number] Versed Inj 100 mg In 100 ml @ 2 80 / 80 MG/HR 2 mls/hr IV.CONT TITRATE PRN Rx#:[id number] NS Inj 1,000 ML @ 84 mls/hr IV. 1000 / 1000 1000 / 1000 CONT .[id number] [facility] Rx#:[id number] Potassium Phosphate Inj 30 MMOL 260 / 260 In NS Inj 250 ML @ 42 mls/hr IV.SIG UNSCH PRN Rx#:[id number] NS Inj 2,000 ML @ Wide Open IV. 1000 / 1000 SIG BOLUS ONE Rx#:[id number] Tube Feeding 0 / 0 Output: Urine 0 / 0 Urine Amount (Catheter) 300 / 300 300 / 300 Indwelling Urethral Catheter 300 / 300 Straight 300 / 300 Other: # Voids 0 # Urine Diapers 0 Date of Last Bowel Movement 09/13/18 09/13/18 # Bowel Movements 0 0 <[place] [id number],[facility] - 09/17/18 09:06> Narrative: GENERAL: Intubated on [facility] vent SKIN: Warm and dry. HEAD: Atraumatic. Normocephalic. EYES: Pupils equal and round. No scleral icterus. No injection or drainage. NECK: Trachea midline. No JVD. CARDIOVASCULAR: Regular rate and rhythm. No murmur appreciated. RESPIRATORY: Breath sounds are equal and clear bilaterally with good air movement GASTROINTESTINAL: Abdomen soft, nondistended EXTREMITIES: Early venous stasis changes noted bilaterally. Bilateral 2+ pitting pre-tibial edema <[place] [id number],Nasim - 09/17/18 09:38> - Urinary Catheter Management Indwelling Urethral Catheter Cath placed during this visit: no <Filomena Williamson - 09/17/18 17:37> no <Kandavanam R3,Nasim - 09/17/18 09:38> Straight Cath placed during this visit: no <Filomena Williamson - 09/17/18 17:37> yes <Kandavanam R3,Nasim - 09/17/18 09:38> Reason for continuing: Acute urinary retention <Kandavanam R3,Nasim - 09:06> Insertion date: 09/16/18 <Kandavanam R3,Nasim 09/17/18 09:06> Insertion time: 10:10 <Kandavanam R3,Nasim - 09/17/18 09:06> Assessment and Plan - Assessment (1) Acute respiratory failure Code(s): J96.00 - Acute respiratory failure, unspecified whether with hypoxia or hypercapnia Status: Acute (2) RAD (obstructive sleep apnea) Code(s): G47.33 - Obstructive sleep apnea (adult) (pediatric) Status: Acute (3) CHF exacerbation Code(s): I50.9 - Heart failure, unspecified Status: Acute (4) Hypertension Code(s): I10 - Essential (primary) hypertension Status: Acute (5) COPD (chronic obstructive pulmonary disease) Code(s): J44.9 - Chronic obstructive pulmonary disease, unspecified Status: Acute (6) GERD (gastroesophageal reflux disease) Code(s): K21.9 - Gastro-esophageal reflux disease without esophagitis Status: Acute (7) Afib Code(s): I48.91 - Unspecified atrial fibrillation Status: Acute (8) Anxiety Code(s): F41.9 - Anxiety disorder, unspecified Status: Acute (9) Tremors of nervous system Code(s): R25.1 - Tremor, unspecified Status: Acute (10) Chronic back pain Code(s): M54.9 - Dorsalgia, unspecified; G89.29 - Other chronic pain Status: Acute (11) Anemia Code(s): D64.9 - Anemia, unspecified Status: Acute (12) KIKE (acute kidney injury) Code(s): N17.9 - Acute kidney failure, unspecified Status: Acute <Filomena Williamson - 09/17/18 17:37> (1) Acute respiratory failure Code(s): J96.00 - Acute respiratory failure, unspecified whether with hypoxia or hypercapnia Status: Acute (2) RAD (obstructive sleep apnea) Code(s): G47.33 - Obstructive sleep apnea (adult) (pediatric) Status: Acute (3) CHF exacerbation Code(s): I50.9 - Heart failure, unspecified Status: Acute (4) Hypertension Code(s): I10 - Essential (primary) hypertension Status: Acute (5) COPD (chronic obstructive pulmonary disease) Code(s): J44.9 - Chronic obstructive pulmonary disease, unspecified Status: Acute (6) GERD (gastroesophageal reflux disease) Code(s): K21.9 - Gastro-esophageal reflux disease without esophagitis Status: Acute (7) Afib Code(s): I48.91 - Unspecified atrial fibrillation Status: Acute (8) Anxiety Code(s): F41.9 - Anxiety disorder, unspecified Status: Acute (9) Tremors of nervous system Code(s): R25.1 - Tremor, unspecified Status: Acute (10) Chronic back pain Code(s): M54.9 - Dorsalgia, unspecified; G89.29 - Other chronic pain Status: Acute (11) Anemia Code(s): D64.9 - Anemia, unspecified Status: Acute (12) KIKE (acute kidney injury) Code(s): N17.9 - Acute kidney failure, unspecified Status: Acute <Nasim Villanueva - 09/17/18 09:34> - Assessment and Plan 63-year-old female presented with shortness of breath presumed to be due to CHFpEF but likely related to her chronic obstructive sleep apnea. The patient was noted to be obtunded this morning with acute respiratory failure and marked CO2 retention requiring emergent intubation with mechanical ventilation. Acute respiratory failure -s/p emergent intubation 09/15 AM -Critical care has been consulted --Continue mechanical ventilation --On Precedex Obstructive sleep apnea with obesity hypoventilation syndrome -Plan as above -Patient has been refusing CPAP/BiPAP and had reported on day of admission extreme claustrophobia and anxiety when previously trying these therapies -Pulmonology consulted, appreciate recommendations. Patient known to Dr. House -May benefit from nasal prongs if the patient continues to not be interested in CPAP -Continue discussion with patient's daughter regarding need for treatment of this issue. Discussed at length with family consideration for tracheostomy if the patient is unwilling to try CPAP again as she needs treatment for her severe RAD Acute Kidney Injury - IV Lasix has been discontinued - Coello catheter placed for I/Os - Renal US, urine eosinophils, Na and Cr per critical care - Avoid nephrotoxic medications CHF exacerbation -Presumed exacerbation of CHF, diastolic dysfunction -Symptoms are more related towards the patients chronic and untreated RAD -BNP equivocal at 108 on admission -Fluid restrict to 1500 mL of fluid daily -Monitor strict I/O's -Cardiology consulted, appreciate recommendations -Stop furosemide -Spiriva nebulizer 0.5 mg twice daily schedule - patient reports allergy to albuterol -Continue home sotalol Hypertension -Monitor vital signs -Hold home BP medications given low borderline blood pressure with sedation COPD -The patient carries a diagnosis of COPD per chart review -Possible heavy secondhand smoke exposure or symptoms all stemming from RAD Anemia -Patient has chronic anemia -Currently stable, continue to monitor Anxiety -Holding home lorazepam 1 mg p.o. twice daily scheduled GERD -On famotidine for ppx Chronic back pain/arthritis -Allergic to multiple medications including ibuprofen and Tylenol, not on any pain medications at home -Consider alternative therapies if needed -PT evaluate and treat while in the hospital once patient extubated FEN/ppx -Diet: Tube feeds with Jevity 1.5 kcal -DVT ppx: Lovenox -GI ppx: Famotidine <Nasim Villanueva - 09/17/18 09:38> - Attending Attestation The exam, history, and the medical decision-making described in the above note were completed with the assistance of the resident physician. I reviewed and agree with the findings presented. I attest that I had a [id number] encounter with the patient on the same day, and personally performed and documented my assessment and findings in the medical record. unfortunately, she did not tolerate extubation. she has severe anxiety and failed multiple antianxiety meds as an outpt from side effects <Filomena Williamson - 09/17/18 17:37>
[2018-09-17] MEDS: Enoxaparin Inj 40 MG/0.4 ML Syringe SQ SCH (09:15)
[2018-09-17] MEDS: Famotidine PF Inj 20 MG/2 ML Vial IV.PUSH SCH ×2 (09:16→20:23)
[2018-09-17] MEDS: Senna/Docusate Sodium 8.6/50 MG Tablet PO SCH ×2 (09:16→20:23)
[2018-09-17] MEDS: Simethicone 125 MG Chew Tablet PO SCH (09:17)
[2018-09-17] MEDS: Chlorhexidine 0.12% Oral Kit 15 ML UDC OROPHARYNG SCH ×2 (09:19→20:22)
--- NOTE | 2018-09-17 10:55 | P.PNPL ---
Subjective Interval history: Patient remains intubated and on low dose Precedex drip. Afebrile. Physical Exam Vital signs: Vital Signs 09/16/18 11:00 09/16/18 11:01 09/16/18 11:30 Temperature Pulse Rate 83 83 101 H Respiratory Rate 38 H 37 H 43 H Blood Pressure 112/67 181/117 H Pulse Oximetry 99 98 71 L 09/16/18 11:41 09/16/18 11:50 09/16/18 11:53 Temperature Pulse Rate 88 82 Respiratory Rate 25 H 27 H Blood Pressure 179/97 H 138/79 Pulse Oximetry 94 L 99 98 09/16/18 11:55 09/16/18 11:57 09/16/18 12:00 Temperature Pulse Rate 85 88 66 Respiratory Rate 23 19 21 Blood Pressure 119/73 124/79 136/88 Pulse Oximetry 95 93 L 99 09/16/18 12:02 09/16/18 12:05 09/16/18 12:07 Temperature Pulse Rate 84 83 82 Respiratory Rate 17 15 16 Blood Pressure 135/85 131/88 123/83 Pulse Oximetry 93 L 94 L 95 09/16/18 12:10 09/16/18 12:12 09/16/18 12:15 Temperature Pulse Rate 80 80 79 Respiratory Rate 17 16 20 Blood Pressure 121/78 127/71 125/73 Pulse Oximetry 96 96 97 09/16/18 12:29 09/16/18 12:30 09/16/18 12:45 Temperature Pulse Rate 79 78 75 Respiratory Rate 16 16 16 Blood Pressure 115/73 103/67 Pulse Oximetry 97 98 09/16/18 13:00 09/16/18 13:15 09/16/18 13:30 Temperature Pulse Rate 72 72 70 Respiratory Rate 16 16 16 Blood Pressure 85/56 L 80/53 L 79/50 L Pulse Oximetry 96 95 96 09/16/18 13:36 09/16/18 13:45 09/16/18 14:00 Temperature Pulse Rate 68 68 67 Respiratory Rate 22 37 H 29 H Blood Pressure 83/54 L 86/52 L 97/52 L Pulse Oximetry 96 98 95 09/16/18 14:15 09/16/18 14:30 09/16/18 14:45 Temperature Pulse Rate 66 66 65 Respiratory Rate 52 H 36 H 30 H Blood Pressure 96/55 L 95/56 L 92/56 L Pulse Oximetry 95 96 96 09/16/18 15:00 09/16/18 15:15 09/16/18 15:30 Temperature Pulse Rate 64 63 64 Respiratory Rate 35 H 19 16 Blood Pressure 92/58 L 102/62 98/62 L Pulse Oximetry 96 96 97 09/16/18 15:45 09/16/18 16:00 09/16/18 16:15 Temperature 99 F Pulse Rate 65 66 66 Respiratory Rate 17 21 17 Blood Pressure 105/59 L 106/64 109/66 Pulse Oximetry 96 97 97 09/16/18 16:21 09/16/18 16:30 09/16/18 16:45 Temperature Pulse Rate 66 66 Respiratory Rate 16 16 18 Blood Pressure 97/59 L 101/64 Pulse Oximetry 97 97 96 09/16/18 17:00 09/16/18 17:15 09/16/18 17:30 Temperature Pulse Rate 67 67 67 Respiratory Rate 20 19 20 Blood Pressure 94/62 L 90/60 L 102/57 L Pulse Oximetry 96 96 96 09/16/18 17:45 09/16/18 18:00 09/16/18 18:30 Temperature Pulse Rate 69 73 71 Respiratory Rate 23 18 21 Blood Pressure 104/57 L 105/63 111/64 Pulse Oximetry 96 96 98 09/16/18 19:00 09/16/18 19:30 09/16/18 20:00 Temperature 100.2 F H Pulse Rate 76 78 73 Respiratory Rate 25 H 31 H 29 H Blood Pressure 111/71 102/65 106/55 L Pulse Oximetry 98 96 97 09/16/18 20:30 09/16/18 20:59 09/16/18 21:00 Temperature Pulse Rate 71 69 70 Respiratory Rate 21 16 24 Blood Pressure 101/68 102/62 Pulse Oximetry 97 97 09/16/18 21:30 09/16/18 22:00 09/16/18 22:30 Temperature Pulse Rate 67 67 66 Respiratory Rate 27 H 20 26 H Blood Pressure 93/60 L 95/59 L 91/54 L Pulse Oximetry 97 97 97 09/16/18 23:00 09/16/18 23:30 09/17/18 00:00 Temperature 100 F H Pulse Rate 66 66 77 Respiratory Rate 20 22 24 Blood Pressure 95/56 L 88/61 L 135/77 Pulse Oximetry 97 96 97 09/17/18 00:08 09/17/18 00:30 09/17/18 01:00 Temperature Pulse Rate 73 72 70 Respiratory Rate 16 16 20 Blood Pressure 103/66 105/63 Pulse Oximetry 98 98 98 09/17/18 01:30 09/17/18 02:00 09/17/18 02:30 Temperature Pulse Rate 98 H 66 65 Respiratory Rate 23 18 16 Blood Pressure 109/69 100/56 L 96/58 L Pulse Oximetry 97 96 96 09/17/18 03:00 09/17/18 03:55 09/17/18 04:00 Temperature 99.9 F H Pulse Rate 65 66 66 Respiratory Rate 19 16 21 Blood Pressure 100/69 108/66 107/67 Pulse Oximetry 96 98 98 09/17/18 04:12 09/17/18 04:30 09/17/18 05:00 Temperature Pulse Rate 66 63 59 L Respiratory Rate 16 30 H 38 H Blood Pressure 102/68 128/69 Pulse Oximetry 98 98 98 09/17/18 05:30 09/17/18 06:00 09/17/18 06:30 Temperature Pulse Rate 55 L 53 L 53 L Respiratory Rate 36 H 41 H 34 H Blood Pressure 131/67 132/70 136/74 Pulse Oximetry 97 97 97 09/17/18 07:00 09/17/18 07:30 09/17/18 08:00 Temperature Pulse Rate 54 L 51 L Respiratory Rate 16 36 H 16 Blood Pressure 138/73 136/71 Pulse Oximetry 97 97 97 Intake & Output 09/16/18 09/17/18 09/17/18 18:59 06:59 18:59 Intake Total 2340 / 2340 1100 / 1100 50 / 50 Output Total 300 / 300 300 / 300 Balance 2040 / 2040 800 / 800 50 / 50 Weight 143.2 kg Intake: IV 2340 / 2340 1100 / 1100 50 / 50 Precedex Inj 200 MCG In NS Inj 100 / 100 50 / 50 48 ML @ 0.1 MCG/KG/HR 3.51 mls/ hr IV.CONT TITRATE PRN Rx#: [id number] Versed Inj 100 mg In 100 ml @ 2 80 / 80 MG/HR 2 mls/hr IV.CONT TITRATE PRN Rx#:[id number] NS Inj 1,000 ML @ 84 mls/hr IV. 1000 / 1000 1000 / 1000 CONT .[id number] PABLO Rx#:[id number] Potassium Phosphate Inj 30 MMOL 260 / 260 In NS Inj 250 ML @ 42 mls/hr IV.SIG UNSCH PRN Rx#:[id number] NS Inj 2,000 ML @ Wide Open IV. 1000 / 1000 SIG BOLUS ONE Rx#:[id number] Tube Feeding 0 / 0 Output: Urine 0 / 0 Urine Amount (Catheter) 300 / 300 300 / 300 Indwelling Urethral Catheter 300 / 300 Straight 300 / 300 Other: # Voids 0 # Urine Diapers 0 Date of Last Bowel Movement 09/13/18 09/13/18 # Bowel Movements 0 0 - Constitutional no acute distress, obese - Routine HEENT Exam Head: Present: normocephalic, atraumatic Eye: Present: EOMI, PERRL, normal accommodation, conjunctivae pink ENT: Present: mucous membranes moist - Routine Neck Exam Present: supple, full ROM, trachea midline - Routine Respiratory Exam Present: patient mechanically ventilated, CTA bilaterally - Routine Cardiovascular Exam Present: RRR, S1, S2 - Routine Abdominal Exam Present: soft, normoactive bowel sounds - Routine Extremities Exam Present: pulses intact - Routine Skin Exam Present: intact, dry - Routine Neurological Exam Present: altered mental status - Urinary Catheter Management Straight Cath placed during this visit: yes Reason for continuing: Acute urinary retention Insertion date: 09/16/18 Insertion time: 10:10 Indwelling Urethral Catheter Cath placed during this visit: no Assessment and Plan - Plan 1)VDRF 2)COPD 3)RAD 4)Obesity, 5)KIKE 6)GERD 7)CHF 8)Anemia Continue with vent support keep sats >92% Bronchodilators, ICU vent bundle. On PRVC RR 16, TV 600, IT:1.0, PEEP:7 and FIO2: 40% SBT daily as isabella CXR 09/16: Basilar atelectasis Monitor for signs of infections ( fever, WBC) 09/15 Sputum cx, Influenza screening negative. GI/DVT prophylaxis Continue treatment plan.
--- NOTE | 2018-09-17 15:18 | P.PNCC ---
Subjective Subjective Remarks/Hospital Course: This is a 63-year-old female. Date of admission 09/14/2018. Date of consultation 09/15/2018. Past medical history includes paroxysmal atrial fibrillation currently normal sinus rhythm, elevated BMI, congestive heart failure with last documented ejection fraction 55% 2012, COPD, hypertension, left bundle branch block essential tremors. Patient originally planned to [facility] on 09/14/2018 with worsening shortness of breath slowly on coming over the past couple weeks. She also noticed increasing bilateral lower extremity edema. Per documentation, patient recently saw her technical operations specialist Dr. Silverman on Wednesday who asked her to drink as much fluid and juice as she possibly could and reduce her dose of Lasix from 20 mg twice a day to once a day. During current hospitalization, patient resume home medications of enalapril, furosemide, metoprolol and hydralazine. Patient seen by cardiology and pulmonology. Refusing to be from central sleep apnea. Currently on ipratropium aerosols every [address] House. Seen by Dr. Chew. Switch to sotalol 80 mg twice daily and diuresis furosemide 40 mg IV twice daily. This morning, patient was found obtunded. PH was 7.17. Retaining CO2. Transfer to ICU and intubated using 20 mg etomidate. 09/16: No acute distress on mechanical ventilation. Arousable but not following commands. Tolerating tube feeding. Decreased urine output. Will Place Coello catheter to monitor accurate I's and O's Subjective 09/17: Failed extubation yesterday after 20 minutes. Extremely anxious. Currently on low-dose dexmedetomidine drip and bradycardic. Tube feeds restarted. Urine output has increased. Objective Vital Signs / I&O: Vital Signs 09/16/18 15:30 09/16/18 15:45 09/16/18 16:00 Temperature 99 F Pulse Rate 64 65 66 Respiratory Rate 16 17 21 Blood Pressure 98/62 L 105/59 L 106/64 Pulse Oximetry 97 96 97 09/16/18 16:15 09/16/18 16:21 09/16/18 16:30 Temperature Pulse Rate 66 66 Respiratory Rate 17 16 16 Blood Pressure 109/66 97/59 L Pulse Oximetry 97 97 97 09/16/18 16:45 09/16/18 17:00 09/16/18 17:15 Temperature Pulse Rate 66 67 67 Respiratory Rate 18 20 19 Blood Pressure 101/64 94/62 L 90/60 L Pulse Oximetry 96 96 96 09/16/18 17:30 09/16/18 17:45 09/16/18 18:00 Temperature Pulse Rate 67 69 73 Respiratory Rate 20 23 18 Blood Pressure 102/57 L 104/57 L 105/63 Pulse Oximetry 96 96 96 09/16/18 18:30 09/16/18 19:00 09/16/18 19:30 Temperature Pulse Rate 71 76 78 Respiratory Rate 21 25 H 31 H Blood Pressure 111/64 111/71 102/65 Pulse Oximetry 98 98 96 09/16/18 20:00 09/16/18 20:30 09/16/18 20:59 Temperature 100.2 F H Pulse Rate 73 71 69 Respiratory Rate 29 H 21 16 Blood Pressure 106/55 L 101/68 Pulse Oximetry 97 97 09/16/18 21:00 09/16/18 21:30 09/16/18 22:00 Temperature Pulse Rate 70 67 67 Respiratory Rate 24 27 H 20 Blood Pressure 102/62 93/60 L 95/59 L Pulse Oximetry 97 97 97 09/16/18 22:30 09/16/18 23:00 09/16/18 23:30 Temperature 100 F H Pulse Rate 66 66 66 Respiratory Rate 26 H 20 22 Blood Pressure 91/54 L 95/56 L 88/61 L Pulse Oximetry 97 97 96 09/17/18 00:00 09/17/18 00:08 09/17/18 00:30 Temperature Pulse Rate 77 73 72 Respiratory Rate 24 16 16 Blood Pressure 135/77 103/66 Pulse Oximetry 97 98 98 09/17/18 01:00 09/17/18 01:30 09/17/18 02:00 Temperature Pulse Rate 70 98 H 66 Respiratory Rate 20 23 18 Blood Pressure 105/63 109/69 100/56 L Pulse Oximetry 98 97 96 09/17/18 02:30 09/17/18 03:00 09/17/18 03:55 Temperature Pulse Rate 65 65 66 Respiratory Rate 16 19 16 Blood Pressure 96/58 L 100/69 108/66 Pulse Oximetry 96 96 98 09/17/18 04:00 09/17/18 04:12 09/17/18 04:30 Temperature 99.9 F H Pulse Rate 66 66 63 Respiratory Rate 21 16 30 H Blood Pressure 107/67 102/68 Pulse Oximetry 98 98 98 09/17/18 05:00 09/17/18 05:30 09/17/18 06:00 Temperature Pulse Rate 59 L 55 L 53 L Respiratory Rate 38 H 36 H 41 H Blood Pressure 128/69 131/67 132/70 Pulse Oximetry 98 97 97 09/17/18 06:30 09/17/18 07:00 09/17/18 07:30 Temperature Pulse Rate 53 L 54 L 51 L Respiratory Rate 34 H 16 36 H Blood Pressure 136/74 138/73 136/71 Pulse Oximetry 97 97 97 09/17/18 08:00 09/17/18 08:30 09/17/18 09:00 Temperature 98.4 F Pulse Rate 52 L 54 L 56 L Respiratory Rate 16 16 16 Blood Pressure 136/70 133/69 128/69 Pulse Oximetry 97 97 97 09/17/18 09:30 09/17/18 10:00 09/17/18 10:30 Temperature Pulse Rate 62 59 L 49 L Respiratory Rate 16 16 16 Blood Pressure 141/78 H 151/89 H 136/71 Pulse Oximetry 98 99 97 09/17/18 11:00 09/17/18 11:30 09/17/18 12:00 Temperature 99 F Pulse Rate 50 L 52 L 51 L Respiratory Rate 16 36 H 34 H Blood Pressure 138/69 138/78 149/70 H Pulse Oximetry 98 97 98 09/17/18 12:30 09/17/18 13:00 09/17/18 13:30 Temperature Pulse Rate 56 L 50 L 86 Respiratory Rate 33 H 35 H 23 Blood Pressure 145/85 H 146/77 H 225/98 H Pulse Oximetry 98 98 97 09/17/18 13:32 09/17/18 13:52 09/17/18 14:00 Temperature Pulse Rate 61 46 L 48 L Respiratory Rate 19 25 H 33 H Blood Pressure 194/92 H 162/71 H 147/86 H Pulse Oximetry 99 98 98 Intake & Output 09/16/18 09/17/18 09/17/18 18:59 06:59 18:59 Intake Total 2340 / 2340 1100 / 1100 100 / 100 Output Total 300 / 300 300 / 300 Balance 2040 / 2040 800 / 800 100 / 100 Weight 143.2 kg Intake: IV 2340 / 2340 1100 / 1100 100 / 100 Precedex Inj 200 MCG In NS Inj 100 / 100 100 / 100 48 ML @ 0.1 MCG/KG/HR 3.51 mls/ hr IV.CONT TITRATE PRN Rx#: [id number] Versed Inj 100 mg In 100 ml @ 2 80 / 80 MG/HR 2 mls/hr IV.CONT TITRATE PRN Rx#:[id number] NS Inj 1,000 ML @ 84 mls/hr IV. 1000 / 1000 1000 / 1000 CONT .[id number] PABLO Rx#:[id number] Potassium Phosphate Inj 30 MMOL 260 / 260 In NS Inj 250 ML @ 42 mls/hr IV.SIG UNSCH PRN Rx#:[id number] NS Inj 2,000 ML @ Wide Open IV. 1000 / 1000 SIG BOLUS ONE Rx#:[id number] Tube Feeding 0 / 0 Output: Urine 0 / 0 Urine Amount (Catheter) 300 / 300 300 / 300 Indwelling Urethral Catheter 300 / 300 Straight 300 / 300 Other: # Voids 0 # Urine Diapers 0 Date of Last Bowel Movement 09/13/18 09/13/18 09/13/18 # Bowel Movements 0 0 Result Diagrams: 09/17/18 06:41 09/17/18 06:41 Other Results: Microbiology 09/15/18 10:20 Sputum - Endotracheal Gram Stain - Final 09/15/18 10:20 Sputum - Endotracheal Sputum Culture - Final Heavy growth normal respiratory zaida 09/15/18 17:35 Nasal Wash Influenza Types A,B Antigen - Final Negative for FLU A and B antigen Infection due to influenza A or B cannot be ruled out since the antigen present in the sample may be below the detection limit of the test. Imaging: Chest X-Ray 09/14/18 03:22 CONCLUSION: Mild interstitial prominence. Chest X-Ray 09/15/18 09:05 CONCLUSION: ET tube in good position. Abdomen/Bladder Ultrasound 09/16/18 08:29 CONCLUSION: 1. Negative renal sonogram other than right renal cyst. Chest X-Ray 09/16/18 11:55 CONCLUSION: 1. The endotracheal tube appears to be in good position. 2. No evidence of pneumothorax. Objective Remarks: GENERAL: This is a 63-year-old female currently orotracheally intubated SKIN: Warm and dry. HEAD: Atraumatic. Normocephalic. EYES: Pupils equal and round. No scleral icterus. No injection or drainage. ENT: No nasal bleeding or discharge. Mucous membranes pink and moist. NECK: Trachea midline. No JVD. CARDIOVASCULAR: Bradycardic, RR. S1, S2 no S4. Diminished RESPIRATORY: No accessory muscle use minutes breath sounds due to body habitus GASTROINTESTINAL: Abdomen soft, non-tender, obese. MUSCULOSKELETAL: Extremities nonpitting bilateral lower extremity edema. No obvious deformities. NEUROLOGICAL: Arousable on the ventilator on dexmedetomidine and moves all 4 extremities spontaneously currently with positive cough and gag. Assessment and Plan - Assessment and Plan Plan: Neuro/Psych: Anxiety disorder Chronic benzodiazepine use Patient is on dexmedetomidine drip to maintain RASS -1 with as needed midazolam 1 mg every 1 hours as needed Discontinuing lorazepam 1 mg twice daily/home medication Acetaminophen allergy documented CV: Paroxysmal atrial fibrillation currently normal sinus rhythm Congestive heart failure unknown etiology. Last echocardiogram EF 50-55% Elevated HDL Followed by cardiology And home on enalapril 5 mg daily, furosemide 20 mg daily metoprolol tartrate 50 mg twice daily. Continue home medication hydralazine 10 mg twice daily Switch to sotalol 80 mg twice daily by cardiology Currently holding enalapril 20 mg daily in light of hypotension and acute kidney injury Hold metoprolol tartrate 12.5 mg twice daily post intubation. Resume clinically indicated. Echocardiogram: 09/06/12 - ejection fraction of 50-55% with normal wall motion Myocardial perfusion scan: 09/07/12 - slight ischemia in the LAD distribution with an ejection fraction of 60 Resp: Acute respiratory failure with CO2 retention Obstructive sleep apnea -untreated Previous diagnosis of COPD Last PFT showed mild restrictive lung disease. No obstructive component Followed by pulmonology. Currently ipratropium aerosols every 4 hours scheduled Spontaneous breathing trials today for possible extubation GI: Gastroesophageal reflux disease Start tube feeding with Jevity 1.5 goal 50 cc an hour. Noted that nutrition recommends a vital high-protein at 65 cc an hour Famotidine for GI prophylaxis Docusate sodium/senna 1 tablet twice daily for bowel regimen : Coello catheter if indicated for accurate I's and O's in a critical patient Endo: Acute hyperglycemia Sliding scale insulin Accu-Cheks to maintain euglycemia aspart insulin every 6 hours low regimen Renal: Acute kidney injury Hold furosemide CHAPIS inhibitor discontinued yesterday. Monitor urine output Accurate I's and O's Check renal ultrasound, urine eosinophils, sodium and creatinine Avoid nephrotoxic medications Styloid resuscitation Heme: Leukocytosis Normocytic anemia No indication for transfusion of blood products at this time. Monitor CBC daily. Follow trends. ID: Sputum influenza A and B no growth. Sputum normal zaida Check blood cultures x2 today FEN: Hypokalemia Hypophosphatemia Replace electrolytes as clinically indicated per ICU electrolyte protocol Recheck potassium phosphorus at 1800 hrs. today. Currently on 0.9% NaCl at 84 cc an hour. MSK: Elevated BMI Chronic low back pain Weight loss encouraged PT evaluate and treat Access -Utilize peripheral IV. Central line if indicated Prophylaxis -GI -famotidine -DVT -SCD/enoxaparin Critical care time 35 minutes follow-up
--- NOTE | 2018-09-17 15:53 | ECG ---
Date Performed: 09/17/2018 Time Performed: 14:25:03 PTAGE: 63 years EKG: SINUS BRADYCARDIA POSSIBLE RIGHT VENTRICULAR CONDUCTION DELAY BORDERLINE ECG Within the con straints of artifact, no definite change. PREVIOUS TRACING : 09/14/2018 04.56 DOCTOR: Nolberto Coates Interpretating Date/Time 09/17/2018 15:51:53
[2018-09-17] MEDS: Potassium Phosphate Inj 30 MMOL in Sodium Chlor 0.9% Inj 250 ML IV.SIG PRN (20:23)
[2018-09-18] MEDS: Insulin NovoLOG Aspart Correctional Sugar Inj SQ SCH ×4 (00:46→17:37)
[2018-09-18] MEDS: Oral Hygiene Kit OROPHARYNG SCH ×4 (00:46→17:37)
[2018-09-18] MEDS: Dexmedetomidine Inj 200 MCG in Sodium Chlor 0.9% Inj 48 ML IV.CONT PRN ×4 (02:55→12:15)
[2018-09-18] MEDS: Artificial Tears Opth Drops 15 ML Bottle EACH EYE SCH ×3 (03:54→17:37)
--- NOTE | 2018-09-18 06:08 | XR ---
EXAM DATE: 09/18/2018 5:56 AM EST AGE/SEX: 63 years / Female INDICATIONS: Shortness of breath, possible pulmonary disease. CLINICAL DATA: This is the patient's subsequent encounter. Patient reports that signs and symptoms h ave been present for 4 - 6 days and indicates a pain score of Nonresponsive. MEDICAL/SURGICAL HISTORY: . Chronic obstructive pulmonary disease. Congestive heart failure. a -fib. None. COMPARISON: C, CHEST 1V SINGLE AP, 09/16/2018. . FINDINGS: Endotracheal tube tip is several centimeters above the alyssa. Nasogastric tube coils in the stomach. There is stable moderate asymmetric elevation of the left diaphragm. Consolidative changes in both l saundra bases. Central vascular congestion and interstitial prominence. Visualized cardiac contours are g rossly unchanged. CONCLUSION: Slight interval worsening in aeration Electronically signed by: Festus Reardon MD Board Certified Radiologist 09/18/2018 6:07 AM EST
[2018-09-18 06:22] LABS: Baso % (Auto) 0.1 % (0.0-2.0); Eos # (Auto) 0.3 th/mm3 (0.0-0.4); Eos % (Auto) 2.7 % (0.0-4.0); Hematocrit 28.4 % (35.0-46.0); Hemoglobin 9.1 gm/dL (11.6-15.3); Lymph # (Auto) 0.8 th/mm3 (1.0-4.8); Lymph % (Auto) 6.5 % (9.0-44.0); Mean Corpuscular Hemoglobin 27.9 pg (27.0-34.0); Mean Corpuscular Volume 87.2 fL (80.0-100.0); Mean Platelet Volume 8.5 fL (7.0-11.0); Mono # (Auto) 0.7 th/mm3 (0.0-0.9); Mono % (Auto) 6.1 % (0.0-8.0); Neut # (Auto) 10.1 th/mm3 (1.8-7.7); Neut % (Auto) 84.6 % (16.0-70.0); Platelet Count 212 th/mm3 (150-450); Red Blood Count 3.25 mil/mm3 (4.00-5.30); Red Cell Distribution Width 15.9 % (11.6-17.2)
[2018-09-18 07:13] LABS: Calcium 7.6 mg/dL (8.5-10.1); Carbon Dioxide 30.9 meq/L (21.0-32.0); Magnesium 2.1 mg/dL (1.5-2.5); Phosphorus 4.1 mg/dL (2.5-4.9); Potassium 3.8 meq/L (3.5-5.1)
--- NOTE | 2018-09-18 08:34 | P.PNPL ---
Subjective Interval history: Patient remains intubated and is on Precedex drip. Awake, T;100.7 Physical Exam Vital signs: Vital Signs 09/17/18 08:30 09/17/18 09:00 09/17/18 09:30 Temperature Pulse Rate 54 L 56 L 62 Respiratory Rate 16 16 16 Blood Pressure 133/69 128/69 141/78 H Pulse Oximetry 97 97 98 09/17/18 10:00 09/17/18 10:30 09/17/18 11:00 Temperature Pulse Rate 59 L 49 L 50 L Respiratory Rate 16 16 16 Blood Pressure 151/89 H 136/71 138/69 Pulse Oximetry 99 97 98 09/17/18 11:30 09/17/18 12:00 09/17/18 12:30 Temperature 99 F Pulse Rate 52 L 51 L 56 L Respiratory Rate 36 H 34 H 33 H Blood Pressure 138/78 149/70 H 145/85 H Pulse Oximetry 97 98 98 09/17/18 13:00 09/17/18 13:30 09/17/18 13:32 Temperature Pulse Rate 50 L 86 61 Respiratory Rate 35 H 23 19 Blood Pressure 146/77 H 225/98 H 194/92 H Pulse Oximetry 98 97 99 09/17/18 13:52 09/17/18 14:00 09/17/18 15:00 Temperature Pulse Rate 46 L 48 L 67 Respiratory Rate 25 H 33 H 21 Blood Pressure 162/71 H 147/86 H 142/65 H Pulse Oximetry 98 98 97 09/17/18 15:55 09/17/18 16:00 09/17/18 17:00 Temperature 97.8 F Pulse Rate 63 62 Respiratory Rate 15 18 14 Blood Pressure 151/78 H 143/85 H Pulse Oximetry 99 100 100 09/17/18 18:00 09/17/18 19:00 09/17/18 20:00 Temperature 99.2 F Pulse Rate 63 61 64 Respiratory Rate 15 15 24 Blood Pressure 107/67 108/63 103/63 Pulse Oximetry 99 98 98 09/17/18 20:09 09/17/18 21:00 09/17/18 22:00 Temperature Pulse Rate 81 57 L 60 Respiratory Rate 16 19 24 Blood Pressure 127/71 105/59 L Pulse Oximetry 97 98 98 09/17/18 23:00 09/18/18 00:00 09/18/18 00:04 Temperature 99.7 F H Pulse Rate 56 L 56 L 56 L Respiratory Rate 23 23 16 Blood Pressure 121/66 109/62 Pulse Oximetry 98 98 98 09/18/18 01:00 09/18/18 02:00 09/18/18 03:00 Temperature Pulse Rate 62 59 L 61 Respiratory Rate 16 27 H 19 Blood Pressure 131/80 117/70 115/67 Pulse Oximetry 99 98 98 09/18/18 04:00 09/18/18 04:30 09/18/18 05:00 Temperature 100.7 F H Pulse Rate 68 58 L 57 L Respiratory Rate 21 16 16 Blood Pressure 138/83 135/82 130/80 Pulse Oximetry 92 L 95 95 09/18/18 05:30 09/18/18 06:00 09/18/18 06:30 Temperature Pulse Rate 51 L 52 L 46 L Respiratory Rate 16 16 16 Blood Pressure 140/83 147/92 H 142/87 H Pulse Oximetry 95 96 96 09/18/18 07:00 09/18/18 08:00 Temperature Pulse Rate 63 Respiratory Rate 16 14 Blood Pressure 149/91 H Pulse Oximetry 97 97 Intake & Output 09/17/18 09/18/18 09/18/18 18:59 06:59 18:59 Intake Total 1176 / 1176 410 / 410 Output Total 325 / 325 0 / 0 Balance 851 / 851 410 / 410 Weight 143.2 kg Intake: IV 1100 / 1100 410 / 410 Precedex Inj 200 MCG In NS Inj 100 / 100 150 / 150 48 ML @ 0.1 MCG/KG/HR 3.51 mls/ hr IV.CONT TITRATE PRN Rx#: [id number] NS Inj 1,000 ML @ 84 mls/hr IV. 1000 / 1000 CONT .[id number] [facility] Rx#:[id number] Potassium Phosphate Inj 30 MMOL 260 / 260 In NS Inj 250 ML @ 42 mls/hr IV.SIG UNSCH PRN Rx#:[id number] Tube Feeding 76 / 76 Output: Urine 0 / 0 Urine Amount (Catheter) 325 / 325 Indwelling Urethral Catheter 325 / 325 Other: # Voids 0 # Urine Diapers 0 Date of Last Bowel Movement 09/13/18 09/13/18 # Bowel Movements 0 - Constitutional no acute distress, obese - Routine HEENT Exam Head: Present: normocephalic, atraumatic Eye: Present: EOMI, PERRL, normal accommodation, conjunctivae pink ENT: Present: mucous membranes moist - Routine Neck Exam Present: supple, full ROM, trachea midline - Routine Respiratory Exam Present: patient mechanically ventilated, CTA bilaterally - Routine Cardiovascular Exam Present: RRR, S1, S2 - Routine Abdominal Exam Present: soft, normoactive bowel sounds - Routine Extremities Exam Present: edema, pulses intact - Routine Skin Exam Present: intact - Routine Neurological Exam Present: alert - Urinary Catheter Management Straight Cath placed during this visit: yes Reason for continuing: Acute urinary retention Insertion date: 09/16/18 Insertion time: 10:10 Indwelling Urethral Catheter Cath placed during this visit: no Assessment and Plan - Plan 1)VDRF 2)COPD 3)RAD 4)Obesity, 5)KIKE 6)GERD 7)CHF 8)Anemia Continue with vent support keep sats >92% Bronchodilators, ICU vent bundle. On PRVC RR 16, TV 600, IT:1.0, PEEP:7 and FIO2: 40% SBT daily as isabella CXR today-elevation of the left diaphragm. Consolidative changes in both lung bases. Central vascular congestion and interstitial prominence Start Aztreonam empirically in setting of low grade fever and leukocytosis. Monitor for signs of infections ( fever, WBC) Follow up on BC, check sputum cx. 09/15 Sputum cx, Influenza screening negative. Monitor renal function, I/O',s diurese with Bumex 1mg x1 GI/DVT prophylaxis Continue treatment plan.
--- NOTE | 2018-09-18 08:54 | P.PNFP ---
Subjective Interval history: Intubated this AM. Awake and alert, following commands. Low- grade fever overnight. <Nasim Villnaueva - 09/18/18 08:54> Results - Labs Result diagrams: 09/18/18 06:07 09/18/18 06:07 <Filomena Williamson Silvestre - 09/18/18 09:55> Abnormal lab results 09/16/18 09/17/18 09/17/18 Range/Units 10:10 12:06 17:09 WBC (4.0-11.0) th/mm3 RBC (4.00-5.30) mil/mm3 Hgb (11.6-15.3) gm/dL Hct (35.0-46.0) % Neut % (Auto) (16.0-70.0) % Lymph % (Auto) (9.0-44.0) % Neut # (Auto) (1.8-7.7) th/mm3 Lymph # (Auto) (1.0-4.8) th/mm3 Sodium (136-145) meq/L Chloride (98-107) meq/L BUN (7-18) mg/dL Creatinine (0.50-1.00) mg/dL Estimated GFR (>89) mL/min POC Glucose 131 H 125 H (68-110) mg/dl Random Glucose (74-106) mg/dL Calcium (8.5-10.1) mg/dL Urine Eosinophils Rare H (None Seen) /HPF 09/18/18 09/18/18 09/18/18 Range/Units 00:08 03:52 06:07 WBC 12.0 H (4.0-11.0) th/mm3 RBC 3.25 L (4.00-5.30) mil/mm3 Hgb 9.1 L (11.6-15.3) gm/dL Hct 28.4 L (35.0-46.0) % Neut % (Auto) 84.6 H (16.0-70.0) % Lymph % (Auto) 6.5 L (9.0-44.0) % Neut # (Auto) 10.1 H (1.8-7.7) th/mm3 Lymph # (Auto) 0.8 L (1.0-4.8) th/mm3 Sodium (136-145) meq/L Chloride (98-107) meq/L BUN (7-18) mg/dL Creatinine (0.50-1.00) mg/dL Estimated GFR (>89) mL/min POC Glucose 162 H 135 H (68-110) mg/dl Random Glucose (74-106) mg/dL Calcium (8.5-10.1) mg/dL Urine Eosinophils (None Seen) /HPF 09/18/18 Range/Units 06:07 WBC (4.0-11.0) th/mm3 RBC (4.00-5.30) mil/mm3 Hgb (11.6-15.3) gm/dL Hct (35.0-46.0) % Neut % (Auto) (16.0-70.0) % Lymph % (Auto) (9.0-44.0) % Neut # (Auto) (1.8-7.7) th/mm3 Lymph # (Auto) (1.0-4.8) th/mm3 Sodium 149 H (136-145) meq/L Chloride 110 H (98-107) meq/L BUN 20 H (7-18) mg/dL Creatinine 1.25 H (0.50-1.00) mg/dL Estimated GFR 43 L (>89) mL/min POC Glucose (68-110) mg/dl Random Glucose 152 H (74-106) mg/dL Calcium 7.6 L (8.5-10.1) mg/dL Urine Eosinophils (None Seen) /HPF Short CBC 09/18/18 Range/Units 06:07 WBC 12.0 H (4.0-11.0) th/mm3 Hgb 9.1 L (11.6-15.3) gm/dL Hct 28.4 L (35.0-46.0) % Plt Count 212 (150-450) th/mm3 BMP 09/18/18 06:07 Sodium 149 H Potassium 3.8 Chloride 110 H Carbon Dioxide 30.9 BUN 20 H Creatinine 1.25 H Calcium 7.6 L <ClayFilomena Silvestre - 09/18/18 09:55> Abnormal lab results 09/16/18 09/17/18 09/17/18 Range/Units 10:10 12:06 17:09 WBC (4.0-11.0) th/mm3 RBC (4.00-5.30) mil/mm3 Hgb (11.6-15.3) gm/dL Hct (35.0-46.0) % Neut % (Auto) (16.0-70.0) % Lymph % (Auto) (9.0-44.0) % Neut # (Auto) (1.8-7.7) th/mm3 Lymph # (Auto) (1.0-4.8) th/mm3 Sodium (136-145) meq/L Chloride (98-107) meq/L BUN (7-18) mg/dL Creatinine (0.50-1.00) mg/dL Estimated GFR (>89) mL/min POC Glucose 131 H 125 H (68-110) mg/dl Random Glucose (74-106) mg/dL Calcium (8.5-10.1) mg/dL Urine Eosinophils Rare H (None Seen) /HPF 09/18/18 09/18/18 09/18/18 Range/Units 00:08 03:52 06:07 WBC 12.0 H (4.0-11.0) th/mm3 RBC 3.25 L (4.00-5.30) mil/mm3 Hgb 9.1 L (11.6-15.3) gm/dL Hct 28.4 L (35.0-46.0) % Neut % (Auto) 84.6 H (16.0-70.0) % Lymph % (Auto) 6.5 L (9.0-44.0) % Neut # (Auto) 10.1 H (1.8-7.7) th/mm3 Lymph # (Auto) 0.8 L (1.0-4.8) th/mm3 Sodium (136-145) meq/L Chloride (98-107) meq/L BUN (7-18) mg/dL Creatinine (0.50-1.00) mg/dL Estimated GFR (>89) mL/min POC Glucose 162 H 135 H (68-110) mg/dl Random Glucose (74-106) mg/dL Calcium (8.5-10.1) mg/dL Urine Eosinophils (None Seen) /HPF 09/18/18 Range/Units 06:07 WBC (4.0-11.0) th/mm3 RBC (4.00-5.30) mil/mm3 Hgb (11.6-15.3) gm/dL Hct (35.0-46.0) % Neut % (Auto) (16.0-70.0) % Lymph % (Auto) (9.0-44.0) % Neut # (Auto) (1.8-7.7) th/mm3 Lymph # (Auto) (1.0-4.8) th/mm3 Sodium 149 H (136-145) meq/L Chloride 110 H (98-107) meq/L BUN 20 H (7-18) mg/dL Creatinine 1.25 H (0.50-1.00) mg/dL Estimated GFR 43 L (>89) mL/min POC Glucose (68-110) mg/dl Random Glucose 152 H (74-106) mg/dL Calcium 7.6 L (8.5-10.1) mg/dL Urine Eosinophils (None Seen) /HPF Short CBC 09/18/18 Range/Units 06:07 WBC 12.0 H (4.0-11.0) th/mm3 Hgb 9.1 L (11.6-15.3) gm/dL Hct 28.4 L (35.0-46.0) % Plt Count 212 (150-450) th/mm3 BMP 09/18/18 06:07 Sodium 149 H Potassium 3.8 Chloride 110 H Carbon Dioxide 30.9 BUN 20 H Creatinine 1.25 H Calcium 7.6 L <Zee Giraldo,Nasim - 09/18/18 08:54> - Imaging Impressions Chest X-Ray 09/18/18 00:00 CONCLUSION: Slight interval worsening in aeration <Filomena Williamson - 09/18/18 09:55> Impressions Chest X-Ray 09/18/18 00:00 CONCLUSION: Slight interval worsening in aeration <Zee Giraldo,Nasim - 09/18/18 08:54> Physical Exam Vital signs: Vital Signs 09/17/18 10:00 09/17/18 10:30 09/17/18 11:00 Temperature Pulse Rate 59 L 49 L 50 L Respiratory Rate 16 16 16 Blood Pressure 151/89 H 136/71 138/69 Pulse Oximetry 99 97 98 09/17/18 11:30 09/17/18 12:00 09/17/18 12:30 Temperature 99 F Pulse Rate 52 L 51 L 56 L Respiratory Rate 36 H 34 H 33 H Blood Pressure 138/78 149/70 H 145/85 H Pulse Oximetry 97 98 98 09/17/18 13:00 09/17/18 13:30 09/17/18 13:32 Temperature Pulse Rate 50 L 86 61 Respiratory Rate 35 H 23 19 Blood Pressure 146/77 H 225/98 H 194/92 H Pulse Oximetry 98 97 99 09/17/18 13:52 09/17/18 14:00 09/17/18 15:00 Temperature Pulse Rate 46 L 48 L 67 Respiratory Rate 25 H 33 H 21 Blood Pressure 162/71 H 147/86 H 142/65 H Pulse Oximetry 98 98 97 09/17/18 15:55 09/17/18 16:00 09/17/18 17:00 Temperature 97.8 F Pulse Rate 63 62 Respiratory Rate 15 18 14 Blood Pressure 151/78 H 143/85 H Pulse Oximetry 99 100 100 09/17/18 18:00 09/17/18 19:00 09/17/18 20:00 Temperature 99.2 F Pulse Rate 63 61 64 Respiratory Rate 15 15 24 Blood Pressure 107/67 108/63 103/63 Pulse Oximetry 99 98 98 09/17/18 20:09 09/17/18 21:00 09/17/18 22:00 Temperature Pulse Rate 81 57 L 60 Respiratory Rate 16 19 24 Blood Pressure 127/71 105/59 L Pulse Oximetry 97 98 98 09/17/18 23:00 09/18/18 00:00 09/18/18 00:04 Temperature 99.7 F H Pulse Rate 56 L 56 L 56 L Respiratory Rate 23 23 16 Blood Pressure 121/66 109/62 Pulse Oximetry 98 98 98 09/18/18 01:00 09/18/18 02:00 09/18/18 03:00 Temperature Pulse Rate 62 59 L 61 Respiratory Rate 16 27 H 19 Blood Pressure 131/80 117/70 115/67 Pulse Oximetry 99 98 98 09/18/18 04:00 09/18/18 04:30 09/18/18 05:00 Temperature 100.7 F H Pulse Rate 68 58 L 57 L Respiratory Rate 21 16 16 Blood Pressure 138/83 135/82 130/80 Pulse Oximetry 92 L 95 95 09/18/18 05:30 09/18/18 06:00 09/18/18 06:30 Temperature Pulse Rate 51 L 52 L 46 L Respiratory Rate 16 16 16 Blood Pressure 140/83 147/92 H 142/87 H Pulse Oximetry 95 96 96 09/18/18 07:00 09/18/18 08:00 Temperature Pulse Rate 63 Respiratory Rate 16 14 Blood Pressure 149/91 H Pulse Oximetry 97 97 Intake & Output 09/17/18 09/18/18 09/18/18 18:59 06:59 18:59 Intake Total 1176 / 1176 410 / 410 534 / 534 Output Total 325 / 325 0 / 0 Balance 851 / 851 410 / 410 534 / 534 Weight 143.2 kg Intake: IV 1100 / 1100 410 / 410 534 / 534 Precedex Inj 200 MCG In NS Inj 100 / 100 150 / 150 50 / 50 48 ML @ 0.1 MCG/KG/HR 3.51 mls/ hr IV.CONT TITRATE PRN Rx#: [id number] NS Inj 1,000 ML @ 84 mls/hr IV. 1000 / 1000 384 / 384 CONT .[id number] PABLO Rx#:[id number] Azactam Inj 1,000 MG In NS Inj 100 / 100 100 ML @ 200 mls/hr IV.SIG Q8H PABLO Rx#:[id number] Potassium Phosphate Inj 30 MMOL 260 / 260 In NS Inj 250 ML @ 42 mls/hr IV.SIG UNSCH PRN Rx#:[id number] Tube Feeding 76 / 76 Output: Urine 0 / 0 Urine Amount (Catheter) 325 / 325 Indwelling Urethral Catheter 325 / 325 Other: # Voids 0 # Urine Diapers 0 Date of Last Bowel Movement 09/13/18 09/13/18 # Bowel Movements 0 <Filomena Williamson M - 09/18/18 09:55> Vital Signs 09/17/18 09:00 09/17/18 09:30 09/17/18 10:00 Temperature Pulse Rate 56 L 62 59 L Respiratory Rate 16 16 16 Blood Pressure 128/69 141/78 H 151/89 H Pulse Oximetry 97 98 99 09/17/18 10:30 09/17/18 11:00 09/17/18 11:30 Temperature Pulse Rate 49 L 50 L 52 L Respiratory Rate 16 16 36 H Blood Pressure 136/71 138/69 138/78 Pulse Oximetry 97 98 97 09/17/18 12:00 09/17/18 12:30 09/17/18 13:00 Temperature 99 F Pulse Rate 51 L 56 L 50 L Respiratory Rate 34 H 33 H 35 H Blood Pressure 149/70 H 145/85 H 146/77 H Pulse Oximetry 98 98 98 09/17/18 13:30 09/17/18 13:32 09/17/18 13:52 Temperature Pulse Rate 86 61 46 L Respiratory Rate 23 19 25 H Blood Pressure 225/98 H 194/92 H 162/71 H Pulse Oximetry 97 99 98 09/17/18 14:00 09/17/18 15:00 09/17/18 15:55 Temperature Pulse Rate 48 L 67 Respiratory Rate 33 H 21 15 Blood Pressure 147/86 H 142/65 H Pulse Oximetry 98 97 99 09/17/18 16:00 09/17/18 17:00 09/17/18 18:00 Temperature 97.8 F Pulse Rate 63 62 63 Respiratory Rate 18 14 15 Blood Pressure 151/78 H 143/85 H 107/67 Pulse Oximetry 100 100 99 09/17/18 19:00 09/17/18 20:00 09/17/18 20:09 Temperature 99.2 F Pulse Rate 61 64 81 Respiratory Rate 15 24 16 Blood Pressure 108/63 103/63 Pulse Oximetry 98 98 97 09/17/18 21:00 09/17/18 22:00 09/17/18 23:00 Temperature Pulse Rate 57 L 60 56 L Respiratory Rate 19 24 23 Blood Pressure 127/71 105/59 L 121/66 Pulse Oximetry 98 98 98 09/18/18 00:00 09/18/18 00:04 09/18/18 01:00 Temperature 99.7 F H Pulse Rate 56 L 56 L 62 Respiratory Rate 23 16 16 Blood Pressure 109/62 131/80 Pulse Oximetry 98 98 99 09/18/18 02:00 09/18/18 03:00 09/18/18 04:00 Temperature 100.7 F H Pulse Rate 59 L 61 68 Respiratory Rate 27 H 19 21 Blood Pressure 117/70 115/67 138/83 Pulse Oximetry 98 98 92 L 09/18/18 04:30 09/18/18 05:00 09/18/18 05:30 Temperature Pulse Rate 58 L 57 L 51 L Respiratory Rate 16 16 16 Blood Pressure 135/82 130/80 140/83 Pulse Oximetry 95 95 95 09/18/18 06:00 09/18/18 06:30 09/18/18 07:00 Temperature Pulse Rate 52 L 46 L 63 Respiratory Rate 16 16 16 Blood Pressure 147/92 H 142/87 H 149/91 H Pulse Oximetry 96 96 97 09/18/18 08:00 Temperature Pulse Rate Respiratory Rate 14 Blood Pressure Pulse Oximetry 97 Intake & Output 09/17/18 09/18/18 09/18/18 18:59 06:59 18:59 Intake Total 1176 / 1176 410 / 410 Output Total 325 / 325 0 / 0 Balance 851 / 851 410 / 410 Weight 143.2 kg Intake: IV 1100 / 1100 410 / 410 Precedex Inj 200 MCG In NS Inj 100 / 100 150 / 150 48 ML @ 0.1 MCG/KG/HR 3.51 mls/ hr IV.CONT TITRATE PRN Rx#: [id number] NS Inj 1,000 ML @ 84 mls/hr IV. 1000 / 1000 CONT .[id number] PABLO Rx#:[id number] Potassium Phosphate Inj 30 MMOL 260 / 260 In NS Inj 250 ML @ 42 mls/hr IV.SIG UNSCH PRN Rx#:[id number] Tube Feeding 76 / 76 Output: Urine 0 / 0 Urine Amount (Catheter) 325 / 325 Indwelling Urethral Catheter 325 / 325 Other: # Voids 0 # Urine Diapers 0 Date of Last Bowel Movement 09/13/18 09/13/18 # Bowel Movements 0 <Zee ,Nasim - 09/18/18 08:54> Narrative: GENERAL: Intubated. Awake, alert. Following commands. SKIN: Warm and dry. HEAD: Atraumatic. Normocephalic. EYES: Pupils equal and round. EOMI. No scleral icterus. No injection or drainage. NECK: Trachea midline. No JVD. CARDIOVASCULAR: Regular rate and rhythm. No murmur appreciated. RESPIRATORY: Breath sounds are equal and clear bilaterally with good air movement GASTROINTESTINAL: Abdomen soft, nondistended EXTREMITIES: Early venous stasis changes noted bilaterally. Bilateral 2+ pitting pre-tibial edema <Zee R3,Nasim - 09/18/18 08:54> - Urinary Catheter Management Indwelling Urethral Catheter Cath placed during this visit: no <Filomena Williamson - 09/18/18 09:55> no <Kandavanam R3,Nasim - 09/18/18 08:54> Straight Cath placed during this visit: no <Filomena Williamson M - 09/18/18 09:55> yes <Kandavanam R3,Nasim - 09/18/18 08:54> Reason for continuing: Acute urinary retention <Kandavanam R3,Nasim - 08:54> Insertion date: 09/16/18 <Kandavanam R3,Nasim - 09/18/18 08:54> Insertion time: 10:10 <Kandavanam R3,Nasim - 09/18/18 08:54> Assessment and Plan - Assessment (1) Acute respiratory failure Code(s): J96.00 - Acute respiratory failure, unspecified whether with hypoxia or hypercapnia Status: Acute (2) RAD (obstructive sleep apnea) Code(s): G47.33 - Obstructive sleep apnea (adult) (pediatric) Status: Acute (3) CHF exacerbation Code(s): I50.9 - Heart failure, unspecified Status: Acute (4) Hypertension Code(s): I10 - Essential (primary) hypertension Status: Acute (5) COPD (chronic obstructive pulmonary disease) Code(s): J44.9 - Chronic obstructive pulmonary disease, unspecified Status: Acute (6) GERD (gastroesophageal reflux disease) Code(s): K21.9 - Gastro-esophageal reflux disease without esophagitis Status: Acute (7) Afib Code(s): I48.91 - Unspecified atrial fibrillation Status: Acute (8) Anxiety Code(s): F41.9 - Anxiety disorder, unspecified Status: Acute (9) Tremors of nervous system Code(s): R25.1 - Tremor, unspecified Status: Acute (10) Chronic back pain Code(s): M54.9 - Dorsalgia, unspecified; G89.29 - Other chronic pain Status: Acute (11) Anemia Code(s): D64.9 - Anemia, unspecified Status: Acute (12) KIKE (acute kidney injury) Code(s): N17.9 - Acute kidney failure, unspecified Status: Acute <Filomena Williamson - 09/18/18 09:55> (1) Acute respiratory failure Code(s): J96.00 - Acute respiratory failure, unspecified whether with hypoxia or hypercapnia Status: Acute (2) RAD (obstructive sleep apnea) Code(s): G47.33 - Obstructive sleep apnea (adult) (pediatric) Status: Acute (3) CHF exacerbation Code(s): I50.9 - Heart failure, unspecified Status: Acute (4) Hypertension Code(s): I10 - Essential (primary) hypertension Status: Acute (5) COPD (chronic obstructive pulmonary disease) Code(s): J44.9 - Chronic obstructive pulmonary disease, unspecified Status: Acute (6) GERD (gastroesophageal reflux disease) Code(s): K21.9 - Gastro-esophageal reflux disease without esophagitis Status: Acute (7) Afib Code(s): I48.91 - Unspecified atrial fibrillation Status: Acute (8) Anxiety Code(s): F41.9 - Anxiety disorder, unspecified Status: Acute (9) Tremors of nervous system Code(s): R25.1 - Tremor, unspecified Status: Acute (10) Chronic back pain Code(s): M54.9 - Dorsalgia, unspecified; G89.29 - Other chronic pain Status: Acute (11) Anemia Code(s): D64.9 - Anemia, unspecified Status: Acute (12) KIKE (acute kidney injury) Code(s): N17.9 - Acute kidney failure, unspecified Status: Acute <Nasim Villanueva - 09/18/18 08:48> - Assessment and Plan 63-year-old female presented with shortness of breath presumed to be due to CHFpEF but likely related to her chronic obstructive sleep apnea. The patient was noted to be obtunded 09/15 with acute respiratory failure and marked CO2 retention requiring emergent intubation with mechanical ventilation. Acute respiratory failure -s/p emergent intubation 2 AM -Critical care has been consulted --Continue mechanical ventilation --On Precedex --CPAP trials Obstructive sleep apnea with obesity hypoventilation syndrome -Plan as above -Patient has been refusing CPAP/BiPAP and had reported on day of admission extreme claustrophobia and anxiety when previously trying these therapies -Pulmonology consulted, appreciate recommendations. Patient known to Dr. House -May benefit from nasal prongs if the patient continues to not be interested in CPAP -Continue discussion with patient's daughter regarding need for treatment of this issue. Discussed at length with family consideration for tracheostomy if the patient is unwilling to try CPAP again as she needs treatment for her severe RAD Fever -Sputum culture with normal respiratory zaida -Blood cultures pending -Influenza A/B negative -Continue to monitor WBC trend Acute Kidney Injury - IV Lasix has been discontinued - Coello catheter placed for I/Os - Renal US, urine eosinophils, Na and Cr per critical care - Avoid nephrotoxic medications CHF exacerbation -Presumed exacerbation of CHF, diastolic dysfunction -Symptoms are more related towards the patients chronic and untreated RAD -BNP equivocal at 108 on admission -Fluid restrict to 1500 mL of fluid daily -Monitor strict I/O's -Cardiology consulted, appreciate recommendations -Stop furosemide -Spiriva nebulizer 0.5 mg twice daily schedule - patient reports allergy to albuterol -Continue home sotalol Hypertension -Monitor vital signs -Hold home BP medications given low borderline blood pressure with sedation COPD -The patient carries a diagnosis of COPD per chart review -Possible heavy secondhand smoke exposure or symptoms all stemming from RAD Anemia -Patient has chronic anemia -Currently stable, continue to monitor Anxiety -Holding home lorazepam 1 mg p.o. twice daily scheduled GERD -On famotidine for ppx Chronic back pain/arthritis -Allergic to multiple medications including ibuprofen and Tylenol, not on any pain medications at home -Consider alternative therapies if needed -PT evaluate and treat while in the hospital once patient extubated FEN/ppx -Diet: Tube feeds with Jevity 1.5 kcal -DVT ppx: Lovenox -GI ppx: Famotidine <Nasim Villanueva - 09/18/18 08:54> - Attending Attestation The exam, history, and the medical decision-making described in the above note were completed with the assistance of the resident physician. I reviewed and agree with the findings presented. I attest that I had a [id number] encounter with the patient on the same day, and personally performed and documented my assessment and findings in the medical record. Ms Valencia was awake on her ventilator. she is calm now and hopefully can be extubated. I have grave reservations about her fci ability to survive without using CPAP as she has refused this and is phobia/claustrophobic. it is difficult to see how she will be able to sleep. I think she will end up having to get a trach as that may be the only way for her to breathe without having anything on her face which she can't tolerate. <Filomena Williamson - 09/18/18 09:55>
[2018-09-18] MEDS: Chlorhexidine 0.12% Oral Kit 15 ML UDC OROPHARYNG SCH ×2 (09:01→20:23)
[2018-09-18] MEDS: Famotidine PF Inj 20 MG/2 ML Vial IV.PUSH SCH ×2 (09:04→20:24)
[2018-09-18] MEDS: Simethicone 125 MG Chew Tablet PO SCH (09:04)
[2018-09-18] MEDS: Senna/Docusate Sodium 8.6/50 MG Tablet PO SCH ×2 (09:04→20:24)
[2018-09-18] MEDS: Sod Chloride 0.9% Inj 1,000 ML IV.CONT SCH (09:16)
[2018-09-18] MEDS: Potassium Chloride Inj 20 MEQ, Sodium Chloride 23.4% Inj 38.5 MEQ in Water for Inj, Ste... IV.CONT SCH ×2 (09:43→21:41)
[2018-09-18] MEDS ORDERED: Vancomycin Consult Pharmacy OTHER PRN (11:13)
--- NOTE | 2018-09-18 11:17 | P.PNCC ---
Subjective Subjective Remarks/Hospital Course: This is a 63-year-old female. Date of admission 09/14/2018. Date of consultation 09/15/2018. Past medical history includes paroxysmal atrial fibrillation currently normal sinus rhythm, elevated BMI, congestive heart failure with last documented ejection fraction 55% 2012, COPD, hypertension, left bundle branch block essential tremors. Patient originally planned to [place] on 09/14/2018 with worsening shortness of breath slowly on coming over the past couple weeks. She also noticed increasing bilateral lower extremity edema. Per documentation, patient recently saw her salesperson furniture Dr. Silverman on Wednesday who asked her to drink as much fluid and juice as she possibly could and reduce her dose of Lasix from 20 mg twice a day to once a day. During current hospitalization, patient resume home medications of enalapril, furosemide, metoprolol and hydralazine. Patient seen by cardiology and pulmonology. Refusing to be from central sleep apnea. Currently on ipratropium aerosols every [address] House. Seen by Dr. Chew. Switch to sotalol 80 mg twice daily and diuresis furosemide 40 mg IV twice daily. This morning, patient was found obtunded. PH was 7.17. Retaining CO2. Transfer to ICU and intubated using 20 mg etomidate. 09/16: No acute distress on mechanical ventilation. Arousable but not following commands. Tolerating tube feeding. Decreased urine output. Will Place Coello catheter to monitor accurate I's and O's 09/17: Failed extubation yesterday after 20 minutes. Extremely anxious. Currently on low-dose dexmedetomidine drip and bradycardic. Tube feeds restarted. Urine output has increased. Subjective 09/18: Some hemoptysis overnight. Enoxaparin held. Currently on CPAP trials at 40%. Started on vancomycin and aztreonam for fevers. Arousable and follows commands Objective Vital Signs / I&O: Vital Signs 09/17/18 11:30 09/17/18 12:00 09/17/18 12:30 Temperature 99 F Pulse Rate 52 L 51 L 56 L Respiratory Rate 36 H 34 H 33 H Blood Pressure 138/78 149/70 H 145/85 H Pulse Oximetry 97 98 98 09/17/18 13:00 09/17/18 13:30 09/17/18 13:32 Temperature Pulse Rate 50 L 86 61 Respiratory Rate 35 H 23 19 Blood Pressure 146/77 H 225/98 H 194/92 H Pulse Oximetry 98 97 99 09/17/18 13:52 09/17/18 14:00 09/17/18 15:00 Temperature Pulse Rate 46 L 48 L 67 Respiratory Rate 25 H 33 H 21 Blood Pressure 162/71 H 147/86 H 142/65 H Pulse Oximetry 98 98 97 09/17/18 15:55 09/17/18 16:00 09/17/18 17:00 Temperature 97.8 F Pulse Rate 63 62 Respiratory Rate 15 18 14 Blood Pressure 151/78 H 143/85 H Pulse Oximetry 99 100 100 09/17/18 18:00 09/17/18 19:00 09/17/18 20:00 Temperature 99.2 F Pulse Rate 63 61 64 Respiratory Rate 15 15 24 Blood Pressure 107/67 108/63 103/63 Pulse Oximetry 99 98 98 09/17/18 20:09 09/17/18 21:00 09/17/18 22:00 Temperature Pulse Rate 81 57 L 60 Respiratory Rate 16 19 24 Blood Pressure 127/71 105/59 L Pulse Oximetry 97 98 98 09/17/18 23:00 09/18/18 00:00 09/18/18 00:04 Temperature 99.7 F H Pulse Rate 56 L 56 L 56 L Respiratory Rate 23 23 16 Blood Pressure 121/66 109/62 Pulse Oximetry 98 98 98 09/18/18 01:00 09/18/18 02:00 09/18/18 03:00 Temperature Pulse Rate 62 59 L 61 Respiratory Rate 16 27 H 19 Blood Pressure 131/80 117/70 115/67 Pulse Oximetry 99 98 98 09/18/18 04:00 09/18/18 04:30 09/18/18 05:00 Temperature 100.7 F H Pulse Rate 68 58 L 57 L Respiratory Rate 21 16 16 Blood Pressure 138/83 135/82 130/80 Pulse Oximetry 92 L 95 95 09/18/18 05:30 09/18/18 06:00 09/18/18 06:30 Temperature Pulse Rate 51 L 52 L 46 L Respiratory Rate 16 16 16 Blood Pressure 140/83 147/92 H 142/87 H Pulse Oximetry 95 96 96 09/18/18 07:00 09/18/18 07:30 09/18/18 08:00 Temperature 99.9 F H Pulse Rate 63 50 L 74 Respiratory Rate 16 16 22 Blood Pressure 149/91 H 149/88 H Pulse Oximetry 97 97 98 09/18/18 08:01 09/18/18 08:14 09/18/18 08:31 Temperature Pulse Rate 73 66 74 Respiratory Rate 23 20 17 Blood Pressure 159/113 H 140/83 185/104 H Pulse Oximetry 98 98 99 09/18/18 08:42 09/18/18 09:00 09/18/18 09:01 Temperature Pulse Rate 68 59 L 65 Respiratory Rate 20 28 H 21 Blood Pressure 176/82 H 170/98 H Pulse Oximetry 99 98 98 09/18/18 09:30 09/18/18 09:42 09/18/18 09:44 Temperature Pulse Rate 65 64 63 Respiratory Rate 15 17 16 Blood Pressure 170/107 H 156/105 H 161/109 H Pulse Oximetry 99 98 97 09/18/18 09:46 09/18/18 10:00 09/18/18 11:00 Temperature Pulse Rate 63 61 59 L Respiratory Rate 20 22 12 Blood Pressure 134/73 127/72 Pulse Oximetry 98 98 09/18/18 11:08 Temperature Pulse Rate Respiratory Rate 17 Blood Pressure Pulse Oximetry 100 Intake & Output 09/17/18 09/18/18 09/18/18 18:59 06:59 18:59 Intake Total 1176 / 1176 410 / 410 534 / 534 Output Total 325 / 325 0 / 0 Balance 851 / 851 410 / 410 534 / 534 Weight 143.2 kg Intake: IV 1100 / 1100 410 / 410 534 / 534 Precedex Inj 200 MCG In NS Inj 100 / 100 150 / 150 50 / 50 48 ML @ 0.1 MCG/KG/HR 3.51 mls/ hr IV.CONT TITRATE PRN Rx#: [id number] NS Inj 1,000 ML @ 84 mls/hr IV. 1000 / 1000 384 / 384 CONT .[id number] PABLO Rx#:[id number] Azactam Inj 1,000 MG In NS Inj 100 / 100 100 ML @ 200 mls/hr IV.SIG Q8H PABLO Rx#:[id number] Potassium Phosphate Inj 30 MMOL 260 / 260 In NS Inj 250 ML @ 42 mls/hr IV.SIG UNSCH PRN Rx#:[id number] Tube Feeding Output: Urine 0 / 0 Urine Amount (Catheter) 325 / 325 Indwelling Urethral Catheter 325 / 325 Other: # Voids 0 # Urine Diapers 0 Date of Last Bowel Movement 09/13/18 09/13/18 09/13/18 # Bowel Movements 0 Result Diagrams: 09/18/18 06:07 09/18/18 06:07 Other Results: Microbiology 09/17/18 16:00 Blood - Peripheral Aerobic Blood Culture - Preliminary No growth in 1 day 09/17/18 16:00 Blood - Peripheral Anaerobic Blood Culture - Preliminary No growth in 1 day 09/17/18 16:05 Blood - Peripheral Aerobic Blood Culture - Preliminary No growth in 1 day 09/17/18 16:05 Blood - Peripheral Anaerobic Blood Culture - Preliminary No growth in 1 day 09/15/18 10:20 Sputum - Endotracheal Gram Stain - Final 09/15/18 10:20 Sputum - Endotracheal Sputum Culture - Final Heavy growth normal respiratory zaida 09/15/18 17:35 Nasal Wash Influenza Types A,B Antigen - Final Negative for FLU A and B antigen Infection due to influenza A or B cannot be ruled out since the antigen present in the sample may be below the detection limit of the test. Imaging: Chest X-Ray 09/14/18 03:22 CONCLUSION: Mild interstitial prominence. Chest X-Ray 09/15/18 09:05 CONCLUSION: ET tube in good position. Abdomen/Bladder Ultrasound 09/16/18 08:29 CONCLUSION: 1. Negative renal sonogram other than right renal cyst. Chest X-Ray 09/16/18 11:55 CONCLUSION: 1. The endotracheal tube appears to be in good position. 2. No evidence of pneumothorax. Chest X-Ray 09/18/18 00:00 CONCLUSION: Slight interval worsening in aeration Objective Remarks: GENERAL: This is a 63-year-old female currently orotracheally intubated SKIN: Warm and dry. HEAD: Atraumatic. Normocephalic. EYES: Pupils equal and round. No scleral icterus. No injection or drainage. ENT: No nasal bleeding or discharge. Mucous membranes pink and moist. NECK: Trachea midline. No JVD. CARDIOVASCULAR: Bradycardic, RR. S1, S2 no S4. Diminished heart sounds RESPIRATORY: No accessory muscle use minutes breath sounds due to body habitus GASTROINTESTINAL: Abdomen soft, non-tender, obese. MUSCULOSKELETAL: Extremities nonpitting bilateral lower extremity edema. No obvious deformities. NEUROLOGICAL: Arousable on the ventilator on dexmedetomidine and moves all 4 extremities spontaneously currently with positive cough and gag. Assessment and Plan - Assessment and Plan Plan: Neuro/Psych: Anxiety disorder Chronic benzodiazepine use Patient is on dexmedetomidine drip to maintain RASS -1 with as needed midazolam 1 mg every 1 hours as needed Discontinuing lorazepam 1 mg twice daily/home medication Acetaminophen allergy documented CV: Paroxysmal atrial fibrillation currently normal sinus rhythm Congestive heart failure unknown etiology. Last echocardiogram EF 50-55% Elevated HDL Followed by cardiology And home on enalapril 5 mg daily, furosemide 20 mg daily metoprolol tartrate 50 mg twice daily. Continue home medication hydralazine 10 mg twice daily Switch to sotalol 80 mg twice daily by cardiology Currently holding enalapril 20 mg daily in light of hypotension and acute kidney injury Hold metoprolol tartrate 12.5 mg twice daily post intubation. Resume clinically indicated. Echocardiogram: 09/06/12 - ejection fraction of 50-55% with normal wall motion Myocardial perfusion scan: 09/07/12 - slight ischemia in the LAD distribution with an ejection fraction of 60 Resp: Acute respiratory failure with CO2 retention Obstructive sleep apnea -untreated Previous diagnosis of COPD Hemoptysis Last PFT showed mild restrictive lung disease. No obstructive component Followed by pulmonology. Currently ipratropium aerosols every 4 hours scheduled Spontaneous breathing trials today for possible extubation Pharmacologic prophylaxis held. Consider bronchoscopy if hemoptysis persists GI: Gastroesophageal reflux disease Start tube feeding with Jevity 1.5 goal 50 cc an hour. Noted that nutrition recommends a vital high-protein at 65 cc an hour Famotidine for GI prophylaxis Docusate sodium/senna 1 tablet twice daily for bowel regimen : Coello catheter if indicated for accurate I's and O's in a critical patient Endo: Acute hyperglycemia Sliding scale insulin Accu-Cheks to maintain euglycemia aspart insulin every 6 hours low regimen Renal: Acute kidney injury Hold furosemide CHAPIS inhibitor discontinued yesterday. Monitor urine output Accurate I's and O's Check renal ultrasound, urine eosinophils, sodium and creatinine Avoid nephrotoxic medications Styloid resuscitation Heme: Leukocytosis Normocytic anemia No indication for transfusion of blood products at this time. Monitor CBC daily. Follow trends. ID: 09/[id number] sputum influenza A and B no growth. Sputum normal zaida No growth to date blood cultures x2 09/17 Empirically started on vancomycin and aztreonam day #1 09/18 FEN: Hypernatremia Replace electrolytes as clinically indicated per ICU electrolyte protocol Currently on one quarter normal saline at 84 cc an hour times 2 L MSK: Elevated BMI Chronic low back pain Weight loss encouraged PT evaluate and treat Access -Utilize peripheral IV. Central line if indicated Prophylaxis -GI -famotidine -DVT -SCD/enoxaparin currently on hold with hemoptysis Critical care time 35 minutes follow-up Code Status: Full code Discussed Condition With: RN. Patient. Care plan discussed and all questions answered.
[2018-09-18] MEDS ORDERED: Etomidate Inj 40 MG/20 ML Vial IV.PUSH ONE (12:48)
--- NOTE | 2018-09-18 13:25 | P.PCN ---
Date of procedure: 09/18/18 Pre-op diagnosis: Acute hypercapnic respiratory failure Post-op diagnosis: same Procedure: DATE: 09/18/2018 PROCEDURE: Orotracheal intubation INDICATION: Acute hypoxemic respiratory failure DETAILS OF PROCEDURE The patient was placed in optimal position and preoxygenated with 100% FiO2 via bag valve mask. At the start oxygen saturation was 65%. The patient was administered 20 milligrams etomidate IV and 50 milligrams rocuronium IV. I entered the oropharynx with a size 4 laryngoscope blade and obtained a grade 2 view of the airway. On single attempt a size 8.5 cuffed endotracheal tube was passed through the vocal cords. Correct tube location was confirmed with end tidal CO2 detector and by auscultating over bilateral lung brock. The endotracheal tube was secured with adhesive tape at a depth of 24 cm at the lips. The patient was connected to the ventilator. The patient tolerated the procedure well without any apparent complications. Oxygen saturations were maintained greater than 95% all times. STAT chest x-ray pending at time of dictation.
--- NOTE | 2018-09-18 13:29 | P.PCN ---
Date of procedure: 09/18/18 Pre-op diagnosis: Acute respiratory failure, hemoptysis Post-op diagnosis: same Procedure: DATE: 09/18/2018 Bronchoscopy/diagnostic and therapeutic INDICATION: Hemoptysis CONSENT Informed consent for procedure was obtained from daughter. DESCRIPTION OF THE PROCEDURE The patient was placed in supine position. Sedated on dexmedetomidine drip at 1.5 mcg/kg/h and received 20 mg etomidate and 50 mg rocuronium prior to procedure. FiO2 is at 100%. I entered the 8.5 ET tube with a reactive bronchoscope. The alyssa was sharp. There is a thick frothy bloody sputum noted in the left and right bronchus. The airway was hyperdynamic bilaterally. Mucosa was easily friable. Blood was noted above the balloon on the ET tube. I entered the right upper lobe, middle lobe and lower lobe. Thick white mucus was noted in the right middle lobe and this was lavaged and the Lukens trap. I lavaged a thick frothy sputum in the right side until cleared. Patient received sodium bicarbonate in the right middle and lower lobes due to some bright red blood on mucus. No active bleeding was identified post bicarbonate infusion. The scope was withdrawn. I reentered the 8.5 ET tube. The left mainstem again had thick frothy sputum. This was suctioned to clear. Lingula/left lower lobe were evaluated. Mucosa again was easily friable and did receive sodium bicarbonate with no active bleeding identified. Suctioned until clear. The scope was withdrawn. Saturations remained 95% at all times. Follow-up chest x-ray revealed no pneumothorax.
[2018-09-18] MEDS: Dexmedetomidine Inj 1,000 MCG in Sodium Chlor 0.9% Inj 240 ML IV.CONT PRN (13:33)
[2018-09-18] MEDS: Vancomycin Inj 2,250 MG in Sodium Chlor 0.9% Inj 500 ML IV.SIG SCH (13:33)
--- NOTE | 2018-09-18 14:03 | XR ---
EXAM DATE: 09/18/2018 1:35 PM EST AGE/SEX: 63 years / Female INDICATIONS: Post intubation. CLINICAL DATA: This is the patient's subsequent encounter. Patient reports that signs and symptoms h ave been present for 3 days and indicates a pain score of Nonresponsive. MEDICAL/SURGICAL HISTORY: Chronic obstructive pulmonary disease. Congestive heart failure. Non e. COMPARISON: [facility] – [place], CHEST SINGLE AP, 07/23/2017. . FINDINGS: A single AP view of the chest demonstrates endotracheal tube in good position. NG coiled in stomach w ith elevated left hemidiaphragm. Basilar and right perihilar airspace disease increased on the right since earlier examination from today. No pneumothorax. CONCLUSION: Endotracheal tube in good position. Slight worsening of airspace disease on the right since earlier e xam. NG coiled in stomach with elevated left hemidiaphragm. Electronically signed by: Saud Mcdaniel MD Board Certified Radiologist 09/18/2018 2:02 PM EST
[2018-09-18] MEDS: Mupirocin 2% Nasal Oint Topical Syringe EACH NARE SCH (20:41)
[2018-09-19] MEDS: Oral Hygiene Kit OROPHARYNG SCH ×4 (00:18→15:04)
[2018-09-19] MEDS: Insulin NovoLOG Aspart Correctional Sugar Inj SQ SCH ×4 (00:18→17:39)
[2018-09-19] MEDS: Artificial Tears Opth Drops 15 ML Bottle EACH EYE SCH ×3 (02:32→17:50)
--- NOTE | 2018-09-19 03:00 | XR ---
EXAM DATE: 09/19/2018 2:42 AM EST AGE/SEX: 63 years / Female INDICATIONS: Shortness of breath, possible pulmonary disease. CLINICAL DATA: This is the patient's subsequent encounter. Patient reports that signs and symptoms h ave been present for 4 - 6 days and indicates a pain score of Nonresponsive. MEDICAL/SURGICAL HISTORY: Congestive heart failure. Chronic obstructive pulmonary disease. Non e. COMPARISON: [facility], CHEST 1V SINGLE AP, 09/18/2018. . FINDINGS: A single AP view of the chest demonstrates stable position of life-support tubes including the endotr acheal and nasogastric devices. Stable elevation of the left hemidiaphragm with bibasilar airspace di sease. There may be some slight interval improvement in the aeration in the right lung base. Heart si ze remains prominent. CONCLUSION: 1. Bibasilar airspace disease with some improving aeration in the right base. 2. Stable position of life-support tubes. 3. Stable elevation of the left hemidiaphragm. Stable cardiomegaly. Electronically signed by: Rao Garza MD Board Certified Radiologist 09/19/2018 2:58 AM EST
[2018-09-19] MEDS: Chlorhexidine Gluconate 2% 1 Pack (2 Cloths) TOPICAL SCH (03:31)
[2018-09-19] MEDS ORDERED: Chlorhexidine Gluconate 2% 1 Pack (2 Cloths) TOPICAL PRN (04:00)
[2018-09-19 06:51] LABS: Baso % (Auto) 0.3 % (0.0-2.0); Eos # (Auto) 0.4 th/mm3 (0.0-0.4); Eos % (Auto) 3.1 % (0.0-4.0); Hemoglobin 8.7 gm/dL (11.6-15.3); Lymph # (Auto) 1.1 th/mm3 (1.0-4.8); Lymph % (Auto) 9.5 % (9.0-44.0); Mean Corpuscular HGB Conc 32.4 % (32.0-36.0); Mean Corpuscular Hemoglobin 27.4 pg (27.0-34.0); Mean Corpuscular Volume 84.6 fL (80.0-100.0); Mean Platelet Volume 8.5 fL (7.0-11.0); Mono # (Auto) 0.9 th/mm3 (0.0-0.9); Mono % (Auto) 7.4 % (0.0-8.0); Neut # (Auto) 9.3 th/mm3 (1.8-7.7); Neut % (Auto) 79.7 % (16.0-70.0); Platelet Count 180 th/mm3 (150-450); Red Blood Count 3.19 mil/mm3 (4.00-5.30); Red Cell Distribution Width 16.1 % (11.6-17.2); White Blood Count 11.6 th/mm3 (4.0-11.0)
[2018-09-19 06:54] LABS: Albumin 2.2 g/dL (3.4-5.0); Anion Gap 9 meq/L (5-15); Aspartate Aminotransferase 18 U/L (15-37); Blood Urea Nitrogen 14 mg/dL (7-18); Calcium 7.9 mg/dL (8.5-10.1); Carbon Dioxide 26.9 meq/L (21.0-32.0); Chloride 108 meq/L (98-107); Glomerular Filtration Rate 52 mL/min (>89); Glucose,Random 125 mg/dL (74-106); Potassium 3.2 meq/L (3.5-5.1); Sodium 144 meq/L (136-145)
[2018-09-19 06:55] LABS: Alanine Aminotransferase 15 U/L (10-53)
[2018-09-19] MEDS: Potassium Chlor 20 mEq Premix 20 MEQ/100 ML PIGGYBACK IV.SIG PRN (06:59)
[2018-09-19 07:05] LABS: Alkaline Phosphatase 82 U/L (45-117); Phosphorus 2.2 mg/dL (2.5-4.9); Total Protein 6.3 g/dL (6.4-8.2)
[2018-09-19] MEDS: Chlorhexidine 0.12% Oral Kit 15 ML UDC OROPHARYNG SCH ×2 (08:14→20:26)
--- NOTE | 2018-09-19 08:34 | P.PNFP ---
Subjective Interval history: Patient was seen awake this morning but still intubated. She communicated with me by writing on paper. She states that about 30 minutes earlier, she received a breathing treatments that made her very hot. She believes that she is allergic to this medication. She states that she does not feel any better than the previous day and would like to be suctioned. I spoke with the patient's nurse and the respiratory therapist on the floor who confirmed that she did receive an Atrovent nebulizer treatment which she has been receiving since she was admitted to the hospital. The respiratory therapist indicated that she will suction her as requested. <Eko EnzoSoha U - 09/19/18 09:12> Results - Labs Result diagrams: 09/19/18 06:00 09/19/18 06:00 <Ray Fraire - 09/19/18 11:45> Abnormal lab results 09/18/18 09/18/18 09/18/18 Range/Units 13:00 17:36 23:14 WBC (4.0-11.0) th/mm3 RBC (4.00-5.30) mil/mm3 Hgb (11.6-15.3) gm/dL Hct (35.0-46.0) % Neut % (Auto) (16.0-70.0) % Neut # (Auto) (1.8-7.7) th/mm3 Potassium (3.5-5.1) meq/L Chloride (98-107) meq/L Creatinine (0.50-1.00) mg/dL Estimated GFR (>89) mL/min POC Glucose 112 H 138 H (68-110) mg/dl Random Glucose (74-106) mg/dL Calcium (8.5-10.1) mg/dL Phosphorus (2.5-4.9) mg/dL Total Protein (6.4-8.2) g/dL Albumin (3.4-5.0) g/dL BAL Nucleated 114.400 H (4.700-7.100) Million 09/19/18 09/19/18 Range/Units 06:00 06:00 WBC 11.6 H (4.0-11.0) th/mm3 RBC 3.19 L (4.00-5.30) mil/mm3 Hgb 8.7 L (11.6-15.3) gm/dL Hct 27.0 L (35.0-46.0) % Neut % (Auto) 79.7 H (16.0-70.0) % Neut # (Auto) 9.3 H (1.8-7.7) th/mm3 Potassium 3.2 L (3.5-5.1) meq/L Chloride 108 H (98-107) meq/L Creatinine 1.07 H (0.50-1.00) mg/dL Estimated GFR 52 L (>89) mL/min POC Glucose (68-110) mg/dl Random Glucose 125 H (74-106) mg/dL Calcium 7.9 L (8.5-10.1) mg/dL Phosphorus 2.2 L D (2.5-4.9) mg/dL Total Protein 6.3 L (6.4-8.2) g/dL Albumin 2.2 L (3.4-5.0) g/dL BAL Nucleated (4.700-7.100) Million Short CBC 09/19/18 Range/Units 06:00 WBC 11.6 H (4.0-11.0) th/mm3 Hgb 8.7 L (11.6-15.3) gm/dL Hct 27.0 L (35.0-46.0) % Plt Count 180 (150-450) th/mm3 BMP 09/19/18 06:00 Sodium 144 Potassium 3.2 L Chloride 108 H Carbon Dioxide 26.9 BUN 14 Creatinine 1.07 H Calcium 7.9 L Liver Function 09/19/18 Range/Units 06:00 Total Bilirubin 0.7 (0.2-1.0) mg/dL AST 18 (15-37) U/L ALT 15 (10-53) U/L Alkaline Phosphatase 82 (45-117) U/L Albumin 2.2 L (3.4-5.0) g/dL <Ray Fraire - 09/19/18 11:45> Abnormal lab results 09/18/18 09/18/18 09/18/18 Range/Units 11:17 13:00 17:36 WBC (4.0-11.0) th/mm3 RBC (4.00-5.30) mil/mm3 Hgb (11.6-15.3) gm/dL Hct (35.0-46.0) % Neut % (Auto) (16.0-70.0) % Neut # (Auto) (1.8-7.7) th/mm3 Potassium (3.5-5.1) meq/L Chloride (98-107) meq/L Creatinine (0.50-1.00) mg/dL Estimated GFR (>89) mL/min POC Glucose 170 H 112 H (68-110) mg/dl Random Glucose (74-106) mg/dL Calcium (8.5-10.1) mg/dL Phosphorus (2.5-4.9) mg/dL Total Protein (6.4-8.2) g/dL Albumin (3.4-5.0) g/dL BAL Nucleated 114.400 H (4.700-7.100) Million 09/18/18 09/19/18 09/19/18 Range/Units 23:14 06:00 06:00 WBC 11.6 H (4.0-11.0) th/mm3 RBC 3.19 L (4.00-5.30) mil/mm3 Hgb 8.7 L (11.6-15.3) gm/dL Hct 27.0 L (35.0-46.0) % Neut % (Auto) 79.7 H (16.0-70.0) % Neut # (Auto) 9.3 H (1.8-7.7) th/mm3 Potassium 3.2 L (3.5-5.1) meq/L Chloride 108 H (98-107) meq/L Creatinine 1.07 H (0.50-1.00) mg/dL Estimated GFR 52 L (>89) mL/min POC Glucose 138 H (68-110) mg/dl Random Glucose 125 H (74-106) mg/dL Calcium 7.9 L (8.5-10.1) mg/dL Phosphorus 2.2 L D (2.5-4.9) mg/dL Total Protein 6.3 L (6.4-8.2) g/dL Albumin 2.2 L (3.4-5.0) g/dL BAL Nucleated (4.700-7.100) Million Short CBC 09/19/18 Range/Units 06:00 WBC 11.6 H (4.0-11.0) th/mm3 Hgb 8.7 L (11.6-15.3) gm/dL Hct 27.0 L (35.0-46.0) % Plt Count 180 (150-450) th/mm3 BMP 09/19/18 06:00 Sodium 144 Potassium 3.2 L Chloride 108 H Carbon Dioxide 26.9 BUN 14 Creatinine 1.07 H Calcium 7.9 L Liver Function 09/19/18 Range/Units 06:00 Total Bilirubin 0.7 (0.2-1.0) mg/dL AST 18 (15-37) U/L ALT 15 (10-53) U/L Alkaline Phosphatase 82 (45-117) U/L Albumin 2.2 L (3.4-5.0) g/dL <Eko R3,Soha U - 09/19/18 08:34> - Imaging Impressions Chest X-Ray 09/18/18 12:54 CONCLUSION: Endotracheal tube in good position. Slight worsening of airspace disease on the right since earlier exam. NG coiled in stomach with elevated left hemidiaphragm. Chest X-Ray 09/19/18 06:00 CONCLUSION: 1. Bibasilar airspace disease with some improving aeration in the right base. 2. Stable position of life-support tubes. 3. Stable elevation of the left hemidiaphragm. Stable cardiomegaly. <Prevatte,Ray - 09/19/18 11:45> Impressions Chest X-Ray 09/18/18 12:54 CONCLUSION: Endotracheal tube in good position. Slight worsening of airspace disease on the right since earlier exam. NG coiled in stomach with elevated left hemidiaphragm. Chest X-Ray 09/19/18 06:00 CONCLUSION: 1. Bibasilar airspace disease with some improving aeration in the right base. 2. Stable position of life-support tubes. 3. Stable elevation of the left hemidiaphragm. Stable cardiomegaly. <Eko R3,Soha U - 09/19/18 08:34> Physical Exam Vital signs: Vital Signs 09/18/18 12:00 09/18/18 12:01 09/18/18 12:14 Temperature 98.1 F Pulse Rate 73 70 74 Respiratory Rate 33 H 29 H 28 H Blood Pressure 120/105 H 186/82 H Pulse Oximetry 98 98 96 09/18/18 12:15 09/18/18 12:30 09/18/18 12:45 Temperature Pulse Rate 73 80 102 H Respiratory Rate 31 H 30 H 45 H Blood Pressure 170/78 H 164/77 H 230/137 H Pulse Oximetry 96 96 75 L 09/18/18 12:52 09/18/18 12:54 09/18/18 12:56 Temperature Pulse Rate 94 H 71 70 Respiratory Rate 30 H 28 H 23 Blood Pressure 171/89 H 152/75 H 121/70 Pulse Oximetry 50 L 100 100 09/18/18 12:58 09/18/18 13:00 09/18/18 13:03 Temperature Pulse Rate 69 69 69 Respiratory Rate 16 16 16 Blood Pressure 113/66 103/59 L 112/70 Pulse Oximetry 100 100 100 09/18/18 13:04 09/18/18 13:06 09/18/18 13:08 Temperature Pulse Rate 68 69 68 Respiratory Rate 24 15 18 Blood Pressure 116/77 120/82 127/86 Pulse Oximetry 100 100 100 09/18/18 13:10 09/18/18 13:12 09/18/18 13:14 Temperature Pulse Rate 63 62 65 Respiratory Rate 21 16 17 Blood Pressure 121/82 122/83 126/86 Pulse Oximetry 100 100 100 09/18/18 13:16 09/18/18 13:18 09/18/18 13:20 Temperature Pulse Rate 72 65 69 Respiratory Rate 17 16 16 Blood Pressure 143/105 H 151/104 H 151/104 H Pulse Oximetry 100 95 94 L 09/18/18 13:22 09/18/18 13:24 09/18/18 13:30 Temperature Pulse Rate 74 69 63 Respiratory Rate 16 16 16 Blood Pressure 145/93 H 151/91 H 118/76 Pulse Oximetry 93 L 92 L 92 L 09/18/18 13:45 09/18/18 14:00 09/18/18 14:16 Temperature Pulse Rate 63 61 62 Respiratory Rate 20 20 26 H Blood Pressure 114/75 109/70 124/76 Pulse Oximetry 96 95 96 09/18/18 14:30 09/18/18 14:45 09/18/18 14:59 Temperature Pulse Rate 60 55 L 60 Respiratory Rate 20 20 20 Blood Pressure 114/67 114/67 Pulse Oximetry 97 98 09/18/18 15:00 09/18/18 15:15 09/18/18 15:30 Temperature Pulse Rate 62 64 64 Respiratory Rate 20 20 20 Blood Pressure 137/87 134/83 132/87 Pulse Oximetry 100 99 100 09/18/18 16:00 09/18/18 17:00 09/18/18 18:00 Temperature 99.4 F Pulse Rate 62 64 69 Respiratory Rate 20 18 19 Blood Pressure 143/96 H 149/93 H 120/78 Pulse Oximetry 100 100 98 09/18/18 19:00 09/18/18 20:00 09/18/18 20:33 Temperature 101 F H Pulse Rate 70 75 68 Respiratory Rate 19 23 18 Blood Pressure 130/95 H 141/92 H Pulse Oximetry 100 99 98 09/18/18 21:00 09/18/18 22:00 09/18/18 23:00 Temperature Pulse Rate 68 66 69 Respiratory Rate 18 18 18 Blood Pressure 123/75 154/91 H 121/82 Pulse Oximetry 97 99 98 09/19/18 00:00 09/19/18 00:19 09/19/18 01:00 Temperature 99.1 F Pulse Rate 67 68 64 Respiratory Rate 18 18 18 Blood Pressure 130/93 H 175/106 H Pulse Oximetry 99 98 97 09/19/18 01:35 09/19/18 01:38 09/19/18 02:00 Temperature Pulse Rate 66 66 62 Respiratory Rate 18 18 18 Blood Pressure 236/154 H 140/70 107/61 Pulse Oximetry 98 98 97 09/19/18 03:00 09/19/18 04:00 09/19/18 04:21 Temperature 99.2 F Pulse Rate 62 73 73 Respiratory Rate 18 41 H 18 Blood Pressure 111/70 114/80 Pulse Oximetry 98 98 97 09/19/18 05:00 09/19/18 06:00 09/19/18 07:00 Temperature Pulse Rate 66 62 67 Respiratory Rate 18 18 18 Blood Pressure 88/54 L 118/65 117/76 Pulse Oximetry 97 97 98 09/19/18 08:00 09/19/18 08:17 09/19/18 10:00 Temperature Pulse Rate 68 68 75 Respiratory Rate 21 Blood Pressure Pulse Oximetry 99 97 09/19/18 11:27 Temperature Pulse Rate Respiratory Rate 18 Blood Pressure Pulse Oximetry Intake & Output 09/18/18 09/19/18 09/19/18 18:59 06:59 18:59 Intake Total 1708.5 / 1708.5 1909.625 / 4851.113 8895 / 1300 Output Total 1350 / 1350 550 / 550 Balance 358.5 / 358.5 1359.625 / 2037.585 8405 / 1300 Weight 146.5 kg Intake: IV 1258.5 / 1258.5 1909.625 / 1090.590 8995 / 1200 Precedex Inj 1,000 MCG In NS 152 / 152 147 / 147 Inj 240 ML @ 0.1 MCG/KG/HR 3.51 mls/hr IV.CONT TITRATE PRN Rx# :[id number] KCl Inj 20 MEQ Sodium Chloride 1662.625 / 7381.152 5133 / 1000 23.4% Inj 38.5 MEQ In Sterile Water for Inj 1,000 ML @ 84 mls /hr IV.CONT .Q12H9M PABLO Rx#: [id number] NS Inj 1,000 ML @ 84 mls/hr IV. 384 / 384 CONT .[id number] PABLO Rx#:[id number] Azactam Inj 1,000 MG In NS Inj 200 / 200 100 / 100 100 / 100 100 ML @ 200 mls/hr IV.SIG Q8H PABLO Rx#:[id number] KCl 20 mEq Premix Inj 20 meq In 100 / 100 100 ml @ 50 mls/hr IV.SIG Q2H PRN Rx#:[id number] Vancomycin Inj 2,250 MG In NS 522.5 / 522.5 Inj 500 ML @ 250 mls/hr IV.SIG Q24H PABLO Rx#:[id number] Tube Feeding 250 / 250 Water Bolus Amount 200 / 200 Free Water Amount 100 / 100 Output: Urine Amount (Catheter) 1350 / 1350 550 / 550 Indwelling Urethral Catheter 1350 / 1350 550 / 550 Other: Date of Last Bowel Movement 09/13/18 09/13/18 # Bowel Movements 0 <Ray Fraire - 09/19/18 11:45> Vital Signs 09/18/18 08:42 09/18/18 09:00 09/18/18 09:01 Temperature Pulse Rate 68 59 L 65 Respiratory Rate 20 28 H 21 Blood Pressure 176/82 H 170/98 H Pulse Oximetry 99 98 98 09/18/18 09:30 09/18/18 09:42 09/18/18 09:44 Temperature Pulse Rate 65 64 63 Respiratory Rate 15 17 16 Blood Pressure 170/107 H 156/105 H 161/109 H Pulse Oximetry 99 98 97 09/18/18 09:46 09/18/18 10:00 09/18/18 11:00 Temperature Pulse Rate 63 61 59 L Respiratory Rate 20 22 24 Blood Pressure 134/73 127/72 127/79 Pulse Oximetry 98 98 98 09/18/18 11:08 09/18/18 12:00 09/18/18 12:01 Temperature 98.1 F Pulse Rate 73 70 Respiratory Rate 17 33 H 29 H Blood Pressure 120/105 H Pulse Oximetry 100 98 98 09/18/18 12:14 09/18/18 12:15 09/18/18 12:30 Temperature Pulse Rate 74 73 80 Respiratory Rate 28 H 31 H 30 H Blood Pressure 186/82 H 170/78 H 164/77 H Pulse Oximetry 96 96 96 09/18/18 12:45 09/18/18 12:52 09/18/18 12:54 Temperature Pulse Rate 102 H 94 H 71 Respiratory Rate 45 H 30 H 28 H Blood Pressure 230/137 H 171/89 H 152/75 H Pulse Oximetry 75 L 50 L 100 09/18/18 12:56 09/18/18 12:58 09/18/18 13:00 Temperature Pulse Rate 70 69 69 Respiratory Rate 23 16 16 Blood Pressure 121/70 113/66 103/59 L Pulse Oximetry 100 100 100 09/18/18 13:03 09/18/18 13:04 09/18/18 13:06 Temperature Pulse Rate 69 68 69 Respiratory Rate 16 24 15 Blood Pressure 112/70 116/77 120/82 Pulse Oximetry 100 100 100 09/18/18 13:08 09/18/18 13:10 09/18/18 13:12 Temperature Pulse Rate 68 63 62 Respiratory Rate 18 21 16 Blood Pressure 127/86 121/82 122/83 Pulse Oximetry 100 100 100 09/18/18 13:14 09/18/18 13:16 09/18/18 13:18 Temperature Pulse Rate 65 72 65 Respiratory Rate 17 17 16 Blood Pressure 126/86 143/105 H 151/104 H Pulse Oximetry 100 100 95 09/18/18 13:20 09/18/18 13:22 09/18/18 13:24 Temperature Pulse Rate 69 74 69 Respiratory Rate 16 16 16 Blood Pressure 151/104 H 145/93 H 151/91 H Pulse Oximetry 94 L 93 L 92 L 09/18/18 13:30 09/18/18 13:45 09/18/18 14:00 Temperature Pulse Rate 63 63 61 Respiratory Rate 16 20 20 Blood Pressure 118/76 114/75 109/70 Pulse Oximetry 92 L 96 95 09/18/18 14:16 09/18/18 14:30 09/18/18 14:45 Temperature Pulse Rate 62 60 55 L Respiratory Rate 26 H 20 20 Blood Pressure 124/76 114/67 114/67 Pulse Oximetry 96 97 98 09/18/18 14:59 09/18/18 15:00 09/18/18 15:15 Temperature Pulse Rate 60 62 64 Respiratory Rate 20 20 20 Blood Pressure 137/87 134/83 Pulse Oximetry 100 99 09/18/18 15:30 09/18/18 16:00 09/18/18 17:00 Temperature 99.4 F Pulse Rate 64 62 64 Respiratory Rate 20 20 18 Blood Pressure 132/87 143/96 H 149/93 H Pulse Oximetry 100 100 100 09/18/18 18:00 09/18/18 19:00 09/18/18 20:00 Temperature 101 F H Pulse Rate 69 70 75 Respiratory Rate 19 19 23 Blood Pressure 120/78 130/95 H 141/92 H Pulse Oximetry 98 100 99 09/18/18 20:33 09/18/18 21:00 09/18/18 22:00 Temperature Pulse Rate 68 68 66 Respiratory Rate 18 18 18 Blood Pressure 123/75 154/91 H Pulse Oximetry 98 97 99 09/18/18 23:00 09/19/18 00:00 09/19/18 00:19 Temperature 99.1 F Pulse Rate 69 67 68 Respiratory Rate 18 18 18 Blood Pressure 121/82 130/93 H Pulse Oximetry 98 99 98 09/19/18 01:00 09/19/18 01:35 09/19/18 01:38 Temperature Pulse Rate 64 66 66 Respiratory Rate 18 18 18 Blood Pressure 175/106 H 236/154 H 140/70 Pulse Oximetry 97 98 98 09/19/18 02:00 09/19/18 03:00 09/19/18 04:00 Temperature 99.2 F Pulse Rate 62 62 73 Respiratory Rate 18 18 41 H Blood Pressure 107/61 111/70 114/80 Pulse Oximetry 97 98 98 09/19/18 04:21 09/19/18 05:00 09/19/18 06:00 Temperature Pulse Rate 73 66 62 Respiratory Rate 18 18 18 Blood Pressure 88/54 L 118/65 Pulse Oximetry 97 97 97 09/19/18 07:00 09/19/18 08:17 Temperature Pulse Rate 67 68 Respiratory Rate 18 21 Blood Pressure 117/76 Pulse Oximetry 98 97 Intake & Output 09/18/18 09/19/18 09/19/18 18:59 06:59 18:59 Intake Total 1708.5 / 1708.5 1909.625 / 1909.625 Output Total 1350 / 1350 550 / 550 Balance 358.5 / 358.5 1359.625 / 1359.625 Weight 146.5 kg Intake: IV 1258.5 / 1258.5 1909.625 / 1909.625 Precedex Inj 1,000 MCG In NS 152 / 152 147 / 147 Inj 240 ML @ 0.1 MCG/KG/HR 3.51 mls/hr IV.CONT TITRATE PRN Rx# :[id number] KCl Inj 20 MEQ Sodium Chloride 1662.625 / 1662.625 23.4% Inj 38.5 MEQ In Sterile Water for Inj 1,000 ML @ 84 mls /hr IV.CONT .Q12H9M [facility] Rx#: [id number] NS Inj 1,000 ML @ 84 mls/hr IV. 384 / 384 CONT .[id number] PABLO Rx#:[id number] Azactam Inj 1,000 MG In NS Inj 200 / 200 100 / 100 100 ML @ 200 mls/hr IV.SIG Q8H PABLO Rx#:[id number] Vancomycin Inj 2,250 MG In NS 522.5 / 522.5 Inj 500 ML @ 250 mls/hr IV.SIG Q24H PABLO Rx#:[id number] Tube Feeding 250 / 250 Water Bolus Amount 200 / 200 Output: Urine Amount (Catheter) 1350 / 1350 550 / 550 Indwelling Urethral Catheter 1350 / 1350 550 / 550 Other: Date of Last Bowel Movement 09/13/18 09/13/18 # Bowel Movements 0 <Eko R3,Soha U - 09/19/18 08:34> Narrative: GENERAL: Intubated. Awake, alert. Following commands. SKIN: Warm and dry. HEAD: Atraumatic. Normocephalic. EYES: Pupils equal and round. EOMI. No scleral icterus. No injection or drainage. NECK: Trachea midline. No JVD. CARDIOVASCULAR: Regular rate and rhythm. No murmur appreciated. RESPIRATORY: Transmitted upper airway sounds. Breath sounds are equal and clear bilaterally with good air movement GASTROINTESTINAL: Abdomen soft, nondistended. Bowel sounds are present but not very active EXTREMITIES: Early venous stasis changes noted bilaterally. Bilateral 2+ pitting pre-tibial edema <Eko R3,Soha U - 09/19/18 09:35> - Urinary Catheter Management Indwelling Urethral Catheter Cath placed during this visit: no [facility] - 09/19/18 11:45> no <Eko R3,Soha U - 09/19/18 11:31> Straight Cath placed during this visit: no [facility] 09/19/18 11:45> yes <Eko R3,Soha U 09/19/18 11:31> Reason for continuing: Acute urinary retention <Eko R3,Soha U - 09/19/18 08 :34> Insertion date: 09/16/18 <Eko R3,Soha U - 09/19/18 08:34> Insertion time: 10:10 <Eko R3,Soha U - 09/19/18 08:34> Assessment and Plan - Assessment (1) Acute respiratory failure Code(s): J96.00 - Acute respiratory failure, unspecified whether with hypoxia or hypercapnia Status: Acute (2) RAD (obstructive sleep apnea) Code(s): G47.33 - Obstructive sleep apnea (adult) (pediatric) Status: Acute (3) CHF exacerbation Code(s): I50.9 - Heart failure, unspecified Status: Acute (4) Hypertension Code(s): I10 - Essential (primary) hypertension Status: Acute (5) COPD (chronic obstructive pulmonary disease) Code(s): J44.9 - Chronic obstructive pulmonary disease, unspecified Status: Acute (6) GERD (gastroesophageal reflux disease) Code(s): K21.9 - Gastro-esophageal reflux disease without esophagitis Status: Acute (7) Afib Code(s): I48.91 - Unspecified atrial fibrillation Status: Acute (8) Anxiety Code(s): F41.9 - Anxiety disorder, unspecified Status: Acute (9) Tremors of nervous system Code(s): R25.1 - Tremor, unspecified Status: Acute (10) Chronic back pain Code(s): M54.9 - Dorsalgia, unspecified; G89.29 - Other chronic pain Status: Acute (11) Anemia Code(s): D64.9 - Anemia, unspecified Status: Acute (12) KIKE (acute kidney injury) Code(s): N17.9 - Acute kidney failure, unspecified Status: Acute <Prevatte,Ray - 09/19/18 11:45> (1) Acute respiratory failure Code(s): J96.00 - Acute respiratory failure, unspecified whether with hypoxia or hypercapnia Status: Acute (2) RAD (obstructive sleep apnea) Code(s): G47.33 - Obstructive sleep apnea (adult) (pediatric) Status: Acute (3) CHF exacerbation Code(s): I50.9 - Heart failure, unspecified Status: Acute (4) Hypertension Code(s): I10 - Essential (primary) hypertension Status: Acute (5) COPD (chronic obstructive pulmonary disease) Code(s): J44.9 - Chronic obstructive pulmonary disease, unspecified Status: Acute (6) GERD (gastroesophageal reflux disease) Code(s): K21.9 - Gastro-esophageal reflux disease without esophagitis Status: Acute (7) Afib Code(s): I48.91 - Unspecified atrial fibrillation Status: Acute (8) Anxiety Code(s): F41.9 - Anxiety disorder, unspecified Status: Acute (9) Tremors of nervous system Code(s): R25.1 - Tremor, unspecified Status: Acute (10) Chronic back pain Code(s): M54.9 - Dorsalgia, unspecified; G89.29 - Other chronic pain Status: Acute (11) Anemia Code(s): D64.9 - Anemia, unspecified Status: Acute (12) KIKE (acute kidney injury) Code(s): N17.9 - Acute kidney failure, unspecified Status: Acute <Eko R3Soha U - 09/19/18 11:27> - Assessment and Plan 63-year-old female presented with shortness of breath presumed to be due to CHFpEF but likely related to her chronic obstructive sleep apnea. The patient was noted to be obtunded 09/15 with acute respiratory failure and marked CO2 retention requiring emergent intubation with mechanical ventilation. On 09/18, bronchoscopy was performed with removal of copious amounts of mucus mixed with bright red blood from both bronchi. She was also started on vancomycin and aztreonam due to fevers. Acute respiratory failure -s/p emergent intubation 09/15 AM, still intubated - failed CPAP trials x2 -Bronchoscopy with washings performed on 09-18 * Gram stain and cultures pending -Critical care on board -Continue mechanical ventilation -On Precedex Obstructive sleep apnea with obesity hypoventilation syndrome -Plan as above -Patient has been refusing CPAP/BiPAP and had reported on day of admission extreme claustrophobia and anxiety when previously trying these therapies -Pulmonology on board. Patient known to Dr. House -May benefit from nasal prongs if the patient continues to not be interested in CPAP -Patient and patient's daughter have provided initial consent for a tracheostomy * General surgery has been consulted for placement Fever -TMax of 99.2 overnight, 101F yesterday -Sputum culture with normal respiratory zaida -Blood cultures no growth x 1 day -Influenza A/B negative -Empirically started on vancomycin and aztreonam on 09/18 due to concern for HCAP -Trend WBCs Acute Kidney Injury - IV Lasix and ACEI discontinued - Coello catheter placed for I/Os - Renal US, urine eosinophils, Na and Cr unremarkable - Strict Is and Os - Avoid nephrotoxic medications CHF -Presumed exacerbation of CHF on admission, diastolic dysfunction -However, symptoms are more related towards the patients chronic and untreated RAD -BNP equivocal at 108 on admission -Fluid restrict to 1500 mL of fluid daily -Monitor strict I/O's -Cardiology on board, appreciate recommendations -Furosemide was discontinued -Spiriva nebulizer 0.5 mg twice daily schedule - patient reports allergy to albuterol -Continue home sotalol if BP can tolerate Hypertension -Monitor vital signs -Hold home BP medications given low borderline blood pressure with sedation COPD -The patient carries a diagnosis of COPD per chart review -Possible heavy secondhand smoke exposure or symptoms all stemming from RAD Anemia -Patient has chronic anemia -Currently stable, continue to monitor CBC daily Anxiety -Holding home lorazepam 1 mg p.o. twice daily scheduled -Midazolam 1 mg every 1 hour as needed GERD -On Famotidine for ppx Chronic back pain/arthritis -Allergic to multiple medications including ibuprofen and Tylenol, not on any pain medications at home -Consider alternative therapies if needed -PT evaluate and treat while in the hospital once patient extubated FEN/ppx F: Currently on one quarter normal saline at 84 cc an hour times 2 L E: On ICU electrolyte protocol N: Tube feeds with Jevity 1.5 kcal, goal 50 cc/hr * Nutrition recommends a vital high-protein at 65 cc an hour -DVT ppx: held due to hemoptysis overnight, SCDs in place -GI ppx: Famotidine, Senna/Docusate <Eko R3,Soha U - 09/19/18 11:31> Discharge Planning: Pending clinical improvement <Eko R3,Soha U - 09/19/18 09:35> - Attending Attestation The exam, history, and the medical decision-making described in the above note were completed with the assistance of the resident physician. I reviewed and agree with the findings presented. I attest that I had a [id number] encounter with the patient on the same day, and personally performed and documented my assessment and findings in the medical record. The patient is alert and responsive. Lung exam reveals good air movement bilaterally. Discussed potential need for tracheostomy. <Ray Fraire - 09/19/18 11:45>
[2018-09-19] MEDS: Simethicone 125 MG Chew Tablet PO SCH (09:32)
[2018-09-19] MEDS: Famotidine PF Inj 20 MG/2 ML Vial IV.PUSH SCH ×2 (09:32→20:26)
[2018-09-19] MEDS: Senna/Docusate Sodium 8.6/50 MG Tablet PO SCH ×2 (09:32→20:27)
[2018-09-19] MEDS: Potassium Chloride Inj 20 MEQ, Sodium Chloride 23.4% Inj 38.5 MEQ in Water for Inj, Ste... IV.CONT SCH (09:33)
[2018-09-19] MEDS: Potassium Phosphate Inj 30 MMOL in Sodium Chlor 0.9% Inj 250 ML IV.SIG PRN (09:33)
[2018-09-19] MEDS: Mupirocin 2% Nasal Oint Topical Syringe EACH NARE SCH ×2 (09:33→20:26)
--- NOTE | 2018-09-19 09:43 | P.PNCC ---
Subjective Subjective Remarks/Hospital Course: This is a 63-year-old female. Date of admission 09/14/2018. Date of consultation 09/15/2018. Past medical history includes paroxysmal atrial fibrillation currently normal sinus rhythm, elevated BMI, congestive heart failure with last documented ejection fraction 55% 2012, COPD, hypertension, left bundle branch block essential tremors. Patient originally planned to [employer] on 09/14/2018 with worsening shortness of breath slowly on coming over the past couple weeks. She also noticed increasing bilateral lower extremity edema. Per documentation, patient recently saw her electrician sound Dr. Silverman on Wednesday who asked her to drink as much fluid and juice as she possibly could and reduce her dose of Lasix from 20 mg twice a day to once a day. During current hospitalization, patient resume home medications of enalapril, furosemide, metoprolol and hydralazine. Patient seen by cardiology and pulmonology. Refusing to be from central sleep apnea. Currently on ipratropium aerosols every [address] House. Seen by Dr. Chew. Switch to sotalol 80 mg twice daily and diuresis furosemide 40 mg IV twice daily. This morning, patient was found obtunded. PH was 7.17. Retaining CO2. Transfer to ICU and intubated using 20 mg etomidate. 09/16: No acute distress on mechanical ventilation. Arousable but not following commands. Tolerating tube feeding. Decreased urine output. Will Place Coello catheter to monitor accurate I's and O's 09/17: Failed extubation yesterday after 20 minutes. Extremely anxious. Currently on low-dose dexmedetomidine drip and bradycardic. Tube feeds restarted. Urine output has increased. 09/18: Some hemoptysis overnight. Enoxaparin held. Currently on CPAP trials at 40%. Started on vancomycin and aztreonam for fevers. Arousable and follows commands 09/19: Patient failed trial of extubation again yesterday, required bronchoscopy due to bloody secretions from ETT but no active bleeding was seen. Objective Vital Signs / I&O: Vital Signs 09/18/18 09:30 09/18/18 09:42 09/18/18 09:44 Temperature Pulse Rate 65 64 63 Respiratory Rate 15 17 16 Blood Pressure 170/107 H 156/105 H 161/109 H Pulse Oximetry 99 98 97 02/17/19 09:46 09/18/18 10:00 09/18/18 11:00 Temperature Pulse Rate 63 61 59 L Respiratory Rate 20 22 24 Blood Pressure 134/73 127/72 127/79 Pulse Oximetry 98 98 98 09/18/18 11:08 09/18/18 12:00 09/18/18 12:01 Temperature 98.1 F Pulse Rate 73 70 Respiratory Rate 17 33 H 29 H Blood Pressure 120/105 H Pulse Oximetry 100 98 98 09/18/18 12:14 09/18/18 12:15 09/18/18 12:30 Temperature Pulse Rate 74 73 80 Respiratory Rate 28 H 31 H 30 H Blood Pressure 186/82 H 170/78 H 164/77 H Pulse Oximetry 96 96 96 09/18/18 12:45 09/18/18 12:52 09/18/18 12:54 Temperature Pulse Rate 102 H 94 H 71 Respiratory Rate 45 H 30 H 28 H Blood Pressure 230/137 H 171/89 H 152/75 H Pulse Oximetry 75 L 50 L 100 09/18/18 12:56 09/18/18 12:58 09/18/18 13:00 Temperature Pulse Rate 70 69 69 Respiratory Rate 23 16 16 Blood Pressure 121/70 113/66 103/59 L Pulse Oximetry 100 100 100 09/18/18 13:03 09/18/18 13:04 09/18/18 13:06 Temperature Pulse Rate 69 68 69 Respiratory Rate 16 24 15 Blood Pressure 112/70 116/77 120/82 Pulse Oximetry 100 100 100 09/18/18 13:08 09/18/18 13:10 09/18/18 13:12 Temperature Pulse Rate 68 63 62 Respiratory Rate 18 21 16 Blood Pressure 127/86 121/82 122/83 Pulse Oximetry 100 100 100 09/18/18 13:14 09/18/18 13:16 09/18/18 13:18 Temperature Pulse Rate 65 72 65 Respiratory Rate 17 17 16 Blood Pressure 126/86 143/105 H 151/104 H Pulse Oximetry 100 100 95 09/18/18 13:20 09/18/18 13:22 09/18/18 13:24 Temperature Pulse Rate 69 74 69 Respiratory Rate 16 16 16 Blood Pressure 151/104 H 145/93 H 151/91 H Pulse Oximetry 94 L 93 L 92 L 09/18/18 13:30 09/18/18 13:45 09/18/18 14:00 Temperature Pulse Rate 63 63 61 Respiratory Rate 16 20 20 Blood Pressure 118/76 114/75 109/70 Pulse Oximetry 92 L 96 95 09/18/18 14:16 09/18/18 14:30 09/18/18 14:45 Temperature Pulse Rate 62 60 55 L Respiratory Rate 26 H 20 20 Blood Pressure 124/76 114/67 114/67 Pulse Oximetry 96 97 98 09/18/18 14:59 09/18/18 15:00 09/18/18 15:15 Temperature Pulse Rate 60 62 64 Respiratory Rate 20 20 20 Blood Pressure 137/87 134/83 Pulse Oximetry 100 99 09/18/18 15:30 09/18/18 16:00 09/18/18 17:00 Temperature 99.4 F Pulse Rate 64 62 64 Respiratory Rate 20 20 18 Blood Pressure 132/87 143/96 H 149/93 H Pulse Oximetry 100 100 100 09/18/18 18:00 09/18/18 19:00 09/18/18 20:00 Temperature 101 F H Pulse Rate 69 70 75 Respiratory Rate 19 19 23 Blood Pressure 120/78 130/95 H 141/92 H Pulse Oximetry 98 100 99 09/18/18 20:33 09/18/18 21:00 09/18/18 22:00 Temperature Pulse Rate 68 68 66 Respiratory Rate 18 18 18 Blood Pressure 123/75 154/91 H Pulse Oximetry 98 97 99 09/18/18 23:00 09/19/18 00:00 09/19/18 00:19 Temperature 99.1 F Pulse Rate 69 67 68 Respiratory Rate 18 18 18 Blood Pressure 121/82 130/93 H Pulse Oximetry 98 99 98 09/19/18 01:00 09/19/18 01:35 09/19/18 01:38 Temperature Pulse Rate 64 66 66 Respiratory Rate 18 18 18 Blood Pressure 175/106 H 236/154 H 140/70 Pulse Oximetry 97 98 98 09/19/18 02:00 09/19/18 03:00 09/19/18 04:00 Temperature 99.2 F Pulse Rate 62 62 73 Respiratory Rate 18 18 41 H Blood Pressure 107/61 111/70 114/80 Pulse Oximetry 97 98 98 09/19/18 04:21 09/19/18 05:00 09/19/18 06:00 Temperature Pulse Rate 73 66 62 Respiratory Rate 18 18 18 Blood Pressure 88/54 L 118/65 Pulse Oximetry 97 97 97 09/19/18 07:00 09/19/18 08:17 Temperature Pulse Rate 67 68 Respiratory Rate 18 21 Blood Pressure 117/76 Pulse Oximetry 98 97 Intake & Output 09/18/18 09/19/18 09/19/18 18:59 06:59 18:59 Intake Total 1708.5 / 1708.5 1909.625 / 1909.625 Output Total 1350 / 1350 550 / 550 Balance 358.5 / 358.5 1359.625 / 1359.625 Weight 146.5 kg Intake: IV 1258.5 / 1258.5 1909.625 / 1909.625 Precedex Inj 1,000 MCG In NS 152 / 152 147 / 147 Inj 240 ML @ 0.1 MCG/KG/HR 3.51 mls/hr IV.CONT TITRATE PRN Rx# :[id number] KCl Inj 20 MEQ Sodium Chloride 1662.625 / 1662.625 23.4% Inj 38.5 MEQ In Sterile Water for Inj 1,000 ML @ 84 mls /hr IV.CONT .Q12H9M PABLO Rx#: [id number] NS Inj 1,000 ML @ 84 mls/hr IV. 384 / 384 CONT .[id number] PABLO Rx#:[id number] Azactam Inj 1,000 MG In NS Inj 200 / 200 100 / 100 100 ML @ 200 mls/hr IV.SIG Q8H PABLO Rx#:[id number] Vancomycin Inj 2,250 MG In NS 522.5 / 522.5 Inj 500 ML @ 250 mls/hr IV.SIG Q24H PABLO Rx#:[id number] Tube Feeding 250 / 250 Water Bolus Amount 200 / 200 Output: Urine Amount (Catheter) 1350 / 1350 550 / 550 Indwelling Urethral Catheter 1350 / 1350 550 / 550 Other: Date of Last Bowel Movement 09/13/18 09/13/18 # Bowel Movements 0 Result Diagrams: 09/19/18 06:00 09/19/18 06:00 Objective Remarks: GENERAL: Intubated, awake and alert SKIN: Warm and dry. HEAD: Atraumatic. Normocephalic. EYES: Pupils equal and round. No injection or drainage. ENT: No nasal bleeding or discharge. Mucous membranes pink and moist. NECK: Trachea midline. CARDIOVASCULAR: Regular rate and rhythm RESPIRATORY: No accessory muscle use, no respiratory distress, diminished breath sounds due to body habitus GASTROINTESTINAL: Abdomen soft, non-tender, obese. MUSCULOSKELETAL: Trace nonpitting bilateral lower extremity edema. No obvious deformities. NEUROLOGICAL: RASS +1, awake and alert, writes questions on notepad Assessment and Plan - Assessment and Plan Plan: 63yF presenting with acute hypoxic respiratory failure and failed attempt at extubation x 2 Neuro/Psych: Anxiety disorder Chronic benzodiazepine use Patient is on dexmedetomidine drip to maintain RASS -1 to 0 Acetaminophen allergy documented CV: Paroxysmal atrial fibrillation currently normal sinus rhythm Congestive heart failure unknown etiology. Last echocardiogram EF 50-55% Elevated HDL Followed by cardiology Home meds- on enalapril 5 mg daily, furosemide 20 mg daily metoprolol tartrate 50 mg twice daily. Continue home medication hydralazine 10 mg twice daily Switched to sotalol 80 mg twice daily by cardiology Currently holding enalapril 20 mg daily in light of hypotension and acute kidney injury Hold metoprolol tartrate 12.5 mg twice daily as patient is on sotalol Echocardiogram: 09/06/12 - ejection fraction of 50-55% with normal wall motion Myocardial perfusion scan: 09/07/12 - slight ischemia in the LAD distribution with an ejection fraction of 60 Resp: Acute respiratory failure with CO2 retention Obstructive sleep apnea -untreated Previous diagnosis of COPD Obesity hypoventilation syndrome Hemoptysis Last PFT showed mild restrictive lung disease. No obstructive component Followed by pulmonology Currently ipratropium aerosols every 4 hours scheduled Pharmacologic prophylaxis held due to hemoptysis, no source of bleeding noted on bronch yesterday Patient will likely need tracheostomy as she has failed several attempts at extubation GI: Gastroesophageal reflux disease Tube feeds- vital high-protein at 65 cc an hour Famotidine for GI prophylaxis Docusate sodium/senna 1 tablet twice daily for bowel regimen : D/C Coello catheter, place Purewick Endo: Acute hyperglycemia Sliding scale insulin Accu-Cheks to maintain euglycemia aspart insulin every 6 hours low regimen Renal: Acute kidney injury- improving Hold furosemide CHAPIS inhibitor discontinued due to KIKE Monitor urine output Accurate I's and O's Renal ultrasound only remarkable for incidental renal cyst; urine eosinophils, sodium and creatinine unremarkable Avoid nephrotoxic medications Heme: Leukocytosis Normocytic anemia No indication for transfusion of blood products at this time. Monitor CBC daily. Follow trends. ID: 09/15 sputum influenza A and B no growth. Sputum normal zaida No growth to date blood cultures x2 09/17 Empirically started on vancomycin and aztreonam over concern for HCAP, day #2 FEN: Hypernatremia Replace electrolytes as clinically indicated per ICU electrolyte protocol D/C IVF, start free water flushes MSK: Elevated BMI Chronic low back pain Weight loss encouraged PT evaluate and treat Access -Utilize peripheral IV Prophylaxis -GI -famotidine -DVT -SCD/enoxaparin currently on hold due to hemoptysis I had a long conversation with the patient at bedside (she is able to write on a notepad and nod/ shake head appropriately to yes/ no questions) as well as her daughter over the phone regarding tracheostomy. The patient nods her head when I asked if she would want to proceed with this. Her daughter will be in this afternoon to speak with the patient but tentatively agrees for now. General surgery consulted. Counseling/ Coordination of Care: This patient is critically ill with impairment of one or more vital organ systems with a high probability of imminent or life-threatening deterioration. High-complexity medical decision making was required to support vital organ function and/ or prevent deterioration in the patient's condition. Total critical care time spent is 38 minutes giving full attention to this patient. This includes examining the patient, gathering history from someone other than the patient (i.e. chart review), discussing the patient's care with other providers, managing the patient's blood pressure and ventilator settings, ordering and interpreting radiologic studies, ordering and interpreting laboratory values, managing the patient's sedation requirements, re-evaluation at frequent intervals, and documentation. Amount of time is separate from teaching, counseling the patient and/or family, and exclusive of procedures. To help prompt me to consider important information that might be impacting today's encounter and assessment, information from prior notes written by myself or my colleagues may have been "brought forward" into today's note. My signature on this note, however, is an attestation that I personally performed the exam, history, and/or decision-making noted today, and, unless otherwise indicated, the interactions with patient, family, and staff as well as the review of records all occurred today. I also attest that the listed assessment and stated plan reflect my best clinical judgment today based on the combination of historical information, prior notes, and today's exam/ interactions. Code Status: Full
[2018-09-19] MEDS: Vancomycin Inj 2,250 MG in Sodium Chlor 0.9% Inj 500 ML IV.SIG SCH (12:11)
[2018-09-19] MEDS: Dexmedetomidine Inj 1,000 MCG in Sodium Chlor 0.9% Inj 240 ML IV.CONT PRN ×2 (12:24→21:05)
--- NOTE | 2018-09-19 15:53 | P.CONGS ---
HPI Gen Surgery Consult Note Consult date: 09/19/18 Reason for consult: other (Tracheostomy tube placement) Requesting physician: Marisol Hadley Narrative: This is a 63-year-old female with a past medical history of COPD and sleep apnea. She was admitted about a week ago with respiratory distress and failure. She was intubated. She has been intubated and extubated several times during this admission and has not been able to protect her airway. A General Surgery consultation has been requested for tracheostomy tube placement. Review of Systems unobtainable due to endotracheal tube PMFSH - History History Provided By: Patient - Medical History Medical History: Medical History (Last Reviewed 09/19/18 @ 15:48 by VICK Cuenca) A-fib CHF (congestive heart failure) COPD (chronic obstructive pulmonary disease) Hypertension MDRO (multiple drug resistant organisms) resistance Oxygen dependent Sleep apnea - Surgical History Surgical History: Surgical History (Last Reviewed 09/19/18 @ 15:48 by VICK Cuenca) No pertinent past surgical history - Family History Family History: Family History (Last Updated 09/15/18 @ 09:53 by Giles Cruz MD) Father Family history of cardiomyopathy - Tobacco History Second Hand Smoke Exposure: Yes Tobacco Use In Past 30 Days: No Smoking Status: Never smoker - Alcohol History How Often Do You Have a Drink Containing Alcohol: Never - Substance Use History Substance History: No History of Abuse - Immunization History Tetanus Immunization: <5 Years Hx Influenza Vaccine This Season: Yes Medications and Allergies Active Medications: Active Medications Al Hydroxide/Mg Hydroxide (Milk Of Kathi [place]) 30 ml PO Q12H PRN PRN Reason: Mild Constipation Artificial Tears (Tears Naturale Opth Drops) 1 drop EACH EYE Q8H [facility] Last Admin: 09/19/18 09:33 Dose: 1 drop Aspirin (Aspirin Chew) 81 mg PO DAILY [facility] Last Admin: 09/19/18 09:32 Dose: 81 mg Bisacodyl (Dulcolax Supp) 10 mg RECTAL DAILY PRN PRN Reason: SEVERE CONSITIPATION Chlorhexidine Gluconate (Peridex 0.12% Oral Kit) 15 ml OROPHARYNG BID@0800, 2000 [facility] Last Admin: 09/19/18 08:14 Dose: 15 ml Chlorhexidine Gluconate (Chlorhexidine 2% Cloth) 3 pack TOPICAL DAILY@0400 [facility] Stop: 09/24/18 03:59 Last Admin: 09/19/18 03:31 Dose: 3 pack Chlorhexidine Gluconate (Chlorhexidine 2% Cloth) 3 pack TOPICAL DAILY@0400 PRN PRN Reason: Extra cloth needed Stop: 09/24/18 03:59 Dextrose (D50w Vial) 50 ml IV.PUSH UNSCH PRN PRN Reason: PER HYPOGLYCEMIA PROTOCOL Enoxaparin Sodium (Lovenox Inj) 40 mg SQ Q24H [facility] Last Admin: 09/17/18 09:15 Dose: 40 mg Famotidine (Pepcid Pf Inj) 20 mg IV.PUSH Q12HR [facility] Last Admin: 09/19/18 09:32 Dose: 20 mg Fluticasone Propionate (Flonase Nasal [place]) 1 spray NASAL DAILY PRN PRN Reason: NASAL CONGESTION Glucagon (Glucagon Inj) 1 mg OTHER PRN PRN PRN Reason: for Hypoglycemia Protocol Hydralazine HCl (Apresoline) 10 mg PO BID [facility] Last Admin: 09/15/18 09:41 Dose: Not Given Magnesium Sulfate 4 gm/ Sodium (Chloride) 100 mls @ 50 mls/hr IV.SIG UNSCH PRN PRN Reason: For Magnesium 0.9 - 1.1 mg/dL Magnesium Sulfate 2 gm/ Sodium (Chloride) 100 mls @ 50 mls/hr IV.SIG UNSCH PRN PRN Reason: For Magnesium 1.2 - 1.6 mg/dL Potassium Chloride (Kcl 40 Meq Premix Inj) 40 meq in 100 mls @ 25 mls/hr IV.SIG Q2H PRN PRN Reason: For Potassium 2.8 - 3.2 mEq/L Potassium Chloride (Kcl 20 Meq Premix Inj) 20 meq in 100 mls @ 50 mls/hr IV.SIG Q2H PRN PRN Reason: For Potassium 3.3 - 3.5 mEq/L Potassium Chloride (Kcl 40 Meq Premix Inj) 40 meq in 100 mls @ 25 mls/hr IV.SIG UNSCH PRN PRN Reason: For Potassium 3.3 - 3.5 mEq/L Potassium Chloride (Kcl 20 Meq Premix Inj) 20 meq in 100 mls @ 50 mls/hr IV.SIG Q2H PRN PRN Reason: For Potassium 2.8 - 3.2 mEq/L Last Infusion: 09/19/18 08:59 Dose: Infused Potassium Phosphate 30 mmol/ (Sodium Chloride) 260 mls @ 42 mls/hr IV.SIG UNSCH PRN PRN Reason: SEE LABEL COMMENTS Last Infusion: 09/19/18 15:05 Dose: Infused Sodium Phosphate 30 mmol/ (Sodium Chloride) 260 mls @ 42 mls/hr IV.SIG UNSCH PRN PRN Reason: For Phosphorus < 2.5 mg/dL Aztreonam 1,000 mg/ Sodium (Chloride) 100 mls @ 200 mls/hr IV.SIG Q8H PABLO Last Infusion: 09/19/18 10:13 Dose: Infused Vancomycin HCl 2,250 mg/ (Sodium Chloride) 522.5 mls @ 250 mls/hr IV.SIG Q24H PABLO Last Infusion: 09/19/18 14:17 Dose: Infused Dexmedetomidine HCl 1,000 mcg/ (Sodium Chloride) 250 mls @ 3.51 mls/hr IV.CONT TITRATE PRN; Protocol PRN Reason: Per Protocol Last Admin: 09/19/18 12:24 Dose: 1 mcg/kg/hr, 35.12 mls/hr Insulin Aspart (Novolog Insulin Correctional Sugar Inj) 0 unit SQ Q6HR PABLO; Protocol Last Admin: 09/19/18 12:12 Dose: 1 unit Ipratropium [place] (Atrovent Neb) 0.5 mg NEB Q4HR NEB [facility] Last Admin: 09/19/18 11:27 Dose: Not Given Lactulose (Lactulose Liq) 30 ml PO DAILY PRN PRN Reason: SEVERE CONSITIPATION Magnesium Oxide (Mag-Ox) 800 mg PO UNSCH PRN PRN Reason: For Magnesium 1.2 - 1.6 mg/dL Midazolam HCl (Versed Inj) 1 mg IV.PUSH Q1H PRN PRN Reason: AGITATION Last Admin: 09/18/18 03:54 Dose: 1 mg Miscellaneous (Pill Splitter) 1 each OTHER UNSCH PRN PRN Reason: SEE LABEL COMMENTS Miscellaneous Information ([facility] Ordered Lab Info) 0 each OTHER ONCE ONE Stop: 09/21/18 12:46 Miscellaneous Medication () 1 each OROPHARYNG 0000,0400,1200,1600 [facility] Last Admin: 09/19/18 15:04 Dose: 1 each Mupirocin (Bactroban 2% Oint) 1 applicatio TOPICAL BID [facility] Last Admin: 09/19/18 09:33 Dose: 1 applicatio Mupirocin (Bactroban 2% Nasal Oint) 1 applicatio EACH NARE BID [facility] Stop: 09/23/18 09:01 Last Admin: 09/19/18 09:33 Dose: 1 applicatio Pharmacy Profile Note (Vancomycin Consult Pharmacy) 1 each OTHER UNSCH PRN PRN Reason: Pharmacy to dose Potassium Chloride (Kcl Liq) 40 meq PO UNSCH PRN PRN Reason: Potassium level 3.3-3.5 mEq/L Potassium Chloride (Kcl Liq) 40 meq PO UNSCH PRN PRN Reason: POTASSIUM LESS THAN 3.5 Potassium Phosphate (K-Phos Original) 2,000 mg PO UNSCH PRN PRN Reason: SEE LABEL COMMENTS Potassium Phosphate (K-Phos Original) 2,000 mg PO Q4H PRN PRN Reason: Phosphorus Less Than 2.5 mg/dL Senna/Docusate Sodium ([place]-Colace) 1 tab PO BID [facility] Last Admin: 09/19/18 09:32 Dose: 1 tab Sennosides (Senokot) 17.2 mg PO Q12H PRN PRN Reason: Moderate Constipation Simethicone (Phazyme Chew) 125 mg PO DAILY [facility] Last Admin: 09/19/18 09:32 Dose: 125 mg Sodium Chloride (Ns Flush) 2 ml IV.FLUSH BID [facility] Last Admin: 09/19/18 09:33 Dose: 2 ml Sodium Chloride (Ns Flush) 2 ml IV.FLUSH UNSCH PRN PRN Reason: FLUSH AFTER USING IV ACCESS Last Admin: 09/18/18 09:03 Dose: 2 ml Sotalol HCl (Betapace) 80 mg PO BID [facility] Last Admin: 09/19/18 09:32 Dose: 80 mg Sterile Water (Free Water) 100 ml NG/OG Q4H [facility] Last Admin: 09/19/18 15:03 Dose: 100 ml Allergies Allergy/AdvReac Type Severity Reaction Status Date / Time acetaminophen Allergy Severe Tachycardia, Verified 09/14/18 02:45 swelling hydrocodone Allergy Severe Tachycardia, Verified 09/14/18 02:45 swelling ibuprofen Allergy Severe Swelling Verified 09/14/18 02:45 morphine Allergy Severe Swelling Verified 09/14/18 02:45 propoxyphene Allergy Severe Swelling Verified 09/14/18 02:45 albuterol Allergy Intermediate Tachycardia Verified 09/14/18 02:45 amoxicillin Allergy Unknown Atrial Verified 09/14/18 02:45 Fibrillation codeine Allergy Unknown UNKNOWN Verified 09/14/18 02:45 sertraline Allergy Unknown UNKNOWN Verified 09/14/18 02:45 pantoprazole AdvReac Unknown Nausea/Vomi Verified 09/14/18 02:45 ting INHALERS FOR COPD (ALL) Allergy Severe PALPITATION Uncoded 09/14/18 02:45 S/DIAPHORES IS VICOPROFEN Allergy Severe Swelling Uncoded 09/14/18 02:45 "ANY PAIN PILLS" AdvReac Severe AFIB Uncoded 09/14/18 02:45 Home Medications Medication Instructions Recorded Confirmed Type enalapril maleate 5 mg PO DAILY 09/14/18 09/14/18 History furosemide [Lasix] 20 mg PO DAILY 09/14/18 09/14/18 History hydralazine 10 mg PO Q12H 09/14/18 09/14/18 History metoprolol tartrate 50 mg PO BID 09/14/18 09/14/18 History Exam Vital signs: Vital Signs 09/18/18 16:00 09/18/18 17:00 09/18/18 18:00 Temperature 99.4 F Pulse Rate 62 64 69 Respiratory Rate 20 18 19 Blood Pressure 143/96 H 149/93 H 120/78 Pulse Oximetry 100 100 98 09/18/18 19:00 09/18/18 20:00 09/18/18 20:33 Temperature 101 F H Pulse Rate 70 75 68 Respiratory Rate 19 23 18 Blood Pressure 130/95 H 141/92 H Pulse Oximetry 100 99 98 09/18/18 21:00 09/18/18 22:00 09/18/18 23:00 Temperature Pulse Rate 68 66 69 Respiratory Rate 18 18 18 Blood Pressure 123/75 154/91 H 121/82 Pulse Oximetry 97 99 98 09/19/18 00:00 09/19/18 00:19 09/19/18 01:00 Temperature 99.1 F Pulse Rate 67 68 64 Respiratory Rate 18 18 18 Blood Pressure 130/93 H 175/106 H Pulse Oximetry 99 98 97 09/19/18 01:35 09/19/18 01:38 09/19/18 02:00 Temperature Pulse Rate 66 66 62 Respiratory Rate 18 18 18 Blood Pressure 236/154 H 140/70 107/61 Pulse Oximetry 98 98 97 09/19/18 03:00 09/19/18 04:00 09/19/18 04:21 Temperature 99.2 F Pulse Rate 62 73 73 Respiratory Rate 18 41 H 18 Blood Pressure 111/70 114/80 Pulse Oximetry 98 98 97 09/19/18 05:00 09/19/18 06:00 09/19/18 07:00 Temperature Pulse Rate 66 62 67 Respiratory Rate 18 18 18 Blood Pressure 88/54 L 118/65 117/76 Pulse Oximetry 97 97 98 09/19/18 08:00 09/19/18 08:17 09/19/18 10:00 Temperature 100.6 F H Pulse Rate 68 68 75 Respiratory Rate 18 21 Blood Pressure 125/71 Pulse Oximetry 99 97 09/19/18 11:27 09/19/18 12:00 09/19/18 14:00 Temperature 100.4 F H Pulse Rate 65 60 Respiratory Rate 18 18 Blood Pressure 109/58 L Pulse Oximetry 97 Intake & Output 09/18/18 09/19/18 09/19/18 18:59 06:59 18:59 Intake Total 1708.5 / 1708.5 1909.625 / 4576.495 7953.5 / 2432.5 Output Total 1350 / 1350 550 / 550 Balance 358.5 / 358.5 1359.625 / 6836.202 4077.5 / 2432.5 Weight 146.5 kg Intake: IV 1258.5 / 1258.5 1909.625 / 8581.769 0370.5 / 2232.5 Precedex Inj 1,000 MCG In NS 152 / 152 147 / 147 250 / 250 Inj 240 ML @ 0.1 MCG/KG/HR 3.51 mls/hr IV.CONT TITRATE PRN Rx# :[id number] KCl Inj 20 MEQ Sodium Chloride 1662.625 / 4368.761 7718 / 1000 23.4% Inj 38.5 MEQ In Sterile Water for Inj 1,000 ML @ 84 mls /hr IV.CONT .Q12H9M [facility] Rx#: [id number] NS Inj 1,000 ML @ 84 mls/hr IV. 384 / 384 CONT .[id number] [facility] Rx#:[id number] Azactam Inj 1,000 MG In NS Inj 200 / 200 100 / 100 100 / 100 100 ML @ 200 mls/hr IV.SIG Q8H PABLO Rx#:[id number] KCl 20 mEq Premix Inj 20 meq In 100 / 100 100 ml @ 50 mls/hr IV.SIG Q2H PRN Rx#:[id number] Potassium Phosphate Inj 30 MMOL 260 / 260 In NS Inj 250 ML @ 42 mls/hr IV.SIG UNSCH PRN Rx#:[id number] Vancomycin Inj 2,250 MG In NS 522.5 / 522.5 522.5 / 522.5 Inj 500 ML @ 250 mls/hr IV.SIG Q24H PABLO Rx#:[id number] Tube Feeding 250 / 250 Water Bolus Amount 200 / 200 Free Water Amount 200 / 200 Output: Urine Amount (Catheter) 1350 / 1350 550 / 550 Indwelling Urethral Catheter 1350 / 1350 550 / 550 Other: Date of Last Bowel Movement 09/13/18 09/13/18 # Bowel Movements 0 Narrative: GENERAL: 63 year old female orally intubated on mechanical ventilation. SKIN: Warm and dry. HEAD: Atraumatic. Normocephalic. EYES: Pupils equal and round. No scleral icterus. No injection or drainage. ENT: No nasal bleeding or discharge. Mucous membranes pink and moist. NECK: Trachea midline. Large neck but trachea is palpable. CARDIOVASCULAR: Regular rate and rhythm. RESPIRATORY: No accessory muscle use. Clear to auscultation. Breath sounds equal bilaterally. GASTROINTESTINAL: Abdomen soft, non-tender, nondistended. Obese abdomen. MUSCULOSKELETAL: Extremities without clubbing, cyanosis, or edema. No obvious deformities. NEUROLOGICAL: Awake and alert. PSYCHIATRIC: Unable to examine. Results - Labs 09/19/18 06:00 09/19/18 06:00 Laboratory Results - last 24 hr 09/18/18 09/18/18 09/19/18 17:36 23:14 06:00 WBC 11.6 H RBC 3.19 L Hgb 8.7 L Hct 27.0 L MCV 84.6 MCH 27.4 MCHC 32.4 RDW 16.1 Plt Count 180 MPV 8.5 Neut % (Auto) 79.7 H Lymph % (Auto) 9.5 [place] % (Auto) 7.4 Eos % (Auto) 3.1 Baso % (Auto) 0.3 Neut # (Auto) 9.3 H Lymph # (Auto) 1.1 [place] # (Auto) 0.9 Eos # (Auto) 0.4 Baso # (Auto) 0.0 WBC Differential . Differential Comment Auto diff final Sodium Potassium Chloride Carbon Dioxide Anion Gap BUN Creatinine Estimated GFR POC Glucose 112 H 138 H Random Glucose Calcium Phosphorus Magnesium Total Bilirubin AST ALT Alkaline Phosphatase Total Protein Albumin 09/19/18 09/19/18 06:00 11:51 WBC RBC Hgb Hct MCV MCH MCHC RDW Plt Count MPV Neut % (Auto) Lymph % (Auto) [place] % (Auto) Eos % (Auto) Baso % (Auto) Neut # (Auto) Lymph # (Auto) [place] # (Auto) Eos # (Auto) Baso # (Auto) WBC Differential Differential Comment Sodium 144 Potassium 3.2 L Chloride 108 H Carbon Dioxide 26.9 Anion Gap 9 BUN 14 Creatinine 1.07 H Estimated GFR 52 L POC Glucose 155 H Random Glucose 125 H Calcium 7.9 L Phosphorus 2.2 L D Magnesium 2.0 Total Bilirubin 0.7 AST 18 ALT 15 Alkaline Phosphatase 82 Total Protein 6.3 L Albumin 2.2 L - Imaging Imaging: ITS Impressions Abdomen/Bladder Ultrasound 09/16/18 08:29 CONCLUSION: 1. Negative renal sonogram other than right renal cyst. Chest X-Ray 09/19/18 06:00 CONCLUSION: 1. Bibasilar airspace disease with some improving aeration in the right base. 2. Stable position of life-support tubes. 3. Stable elevation of the left hemidiaphragm. Stable cardiomegaly. Assessment and Plan - Plan 63 year old female with VDRF -Explained tracheostomy tube placement in detail including risks and benefits -Family would like to think about it. -General Surgery will check back in about 24 hours and plan according -Thank you for this consult; We will continue to follow Discussed Condition With: Dr. Copma Rizvi RN MsNate Valencia + family at bedside
--- NOTE | 2018-09-19 16:47 | P.PN ---
Subjective Interval history: ALERT ON VENT SUPPORT FAILED WEANING Physical Exam Vital signs: Vital Signs 09/18/18 17:00 09/18/18 18:00 09/18/18 19:00 Temperature Pulse Rate 64 69 70 Respiratory Rate 18 19 19 Blood Pressure 149/93 H 120/78 130/95 H Pulse Oximetry 100 98 100 09/18/18 20:00 09/18/18 20:33 09/18/18 21:00 Temperature 101 F H Pulse Rate 75 68 68 Respiratory Rate 23 18 18 Blood Pressure 141/92 H 123/75 Pulse Oximetry 99 98 97 09/18/18 22:00 09/18/18 23:00 09/19/18 00:00 Temperature 99.1 F Pulse Rate 66 69 67 Respiratory Rate 18 18 18 Blood Pressure 154/91 H 121/82 130/93 H Pulse Oximetry 99 98 99 09/19/18 00:19 09/19/18 01:00 09/19/18 01:35 Temperature Pulse Rate 68 64 66 Respiratory Rate 18 18 18 Blood Pressure 175/106 H 236/154 H Pulse Oximetry 98 97 98 09/19/18 01:38 09/19/18 02:00 09/19/18 03:00 Temperature Pulse Rate 66 62 62 Respiratory Rate 18 18 18 Blood Pressure 140/70 107/61 111/70 Pulse Oximetry 98 97 98 09/19/18 04:00 09/19/18 04:21 09/19/18 05:00 Temperature 99.2 F Pulse Rate 73 73 66 Respiratory Rate 41 H 18 18 Blood Pressure 114/80 88/54 L Pulse Oximetry 98 97 97 09/19/18 06:00 09/19/18 07:00 09/19/18 08:00 Temperature 100.6 F H Pulse Rate 62 67 68 Respiratory Rate 18 18 18 Blood Pressure 118/65 117/76 125/71 Pulse Oximetry 97 98 99 09/19/18 08:17 09/19/18 10:00 09/19/18 11:27 Temperature Pulse Rate 68 75 Respiratory Rate 21 18 Blood Pressure Pulse Oximetry 97 09/19/18 12:00 09/19/18 14:00 09/19/18 16:00 Temperature 100.4 F H 99.7 F H Pulse Rate 65 60 63 Respiratory Rate 18 18 Blood Pressure 109/58 L 133/75 Pulse Oximetry 97 98 Intake & Output 09/18/18 09/19/1809/19/19 18:59 06:59 18:59 Intake Total 1708.5 / 1708.5 1909.625 / 1170.767 0064.5 / 2432.5 Output Total 1350 / 1350 550 / 550 Balance 358.5 / 358.5 1359.625 / 8513.403 4757.5 / 2432.5 Weight 146.5 kg Intake: IV 1258.5 / 1258.5 1909.625 / 0542.642 4917.5 / 2232.5 Precedex Inj 1,000 MCG In NS 152 / 152 147 / 147 250 / 250 Inj 240 ML @ 0.1 MCG/KG/HR 3.51 mls/hr IV.CONT TITRATE PRN Rx# :[id number] KCl Inj 20 MEQ Sodium Chloride 1662.625 / 9389.714 1013 / 1000 23.4% Inj 38.5 MEQ In Sterile Water for Inj 1,000 ML @ 84 mls /hr IV.CONT .Q12H9M PABLO Rx#: [id number] NS Inj 1,000 ML @ 84 mls/hr IV. 384 / 384 CONT .[id number] PABLO Rx#:[id number] Azactam Inj 1,000 MG In NS Inj 200 / 200 100 / 100 100 / 100 100 ML @ 200 mls/hr IV.SIG Q8H [facility]ABLO Rx#:[id number] KCl 20 mEq Premix Inj 20 meq In 100 / 100 100 ml @ 50 mls/hr IV.SIG Q2H PRN Rx#:[id number] Potassium Phosphate Inj 30 MMOL 260 / 260 In NS Inj 250 ML @ 42 mls/hr IV.SIG UNSCH PRN Rx#:[id number] Vancomycin Inj 2,250 MG In NS 522.5 / 522.5 522.5 / 522.5 Inj 500 ML @ 250 mls/hr IV.SIG Q24H PABLO Rx#:[id number] Tube Feeding 250 / 250 Water Bolus Amount 200 / 200 Free Water Amount 200 / 200 Output: Urine Amount (Catheter) 1350 / 1350 550 / 550 Indwelling Urethral Catheter 1350 / 1350 550 / 550 Other: Date of Last Bowel Movement 09/13/18 09/13/18 # Bowel Movements 0 Narrative: GENERAL: 63 year old female orally intubated on mechanical ventilation. SKIN: Warm and dry. HEAD: Atraumatic. Normocephalic. EYES: Pupils equal and round. No scleral icterus. No injection or drainage. ENT: No nasal bleeding or discharge. Mucous membranes pink and moist. NECK: Trachea midline. Large neck but trachea is palpable. CARDIOVASCULAR: Regular rate and rhythm. RESPIRATORY: No accessory muscle use. Clear to auscultation. Breath sounds equal bilaterally. GASTROINTESTINAL: Abdomen soft, non-tender, nondistended. Obese abdomen. MUSCULOSKELETAL: Extremities without clubbing, cyanosis, or edema. No obvious deformities. NEUROLOGICAL: Awake and alert. PSYCHIATRIC: Unable to examine. - Urinary Catheter Management Straight Cath placed during this visit: yes Reason for continuing: Acute urinary retention Insertion date: 09/16/18 Insertion time: 10:10 Indwelling Urethral Catheter Cath placed during this visit: no Results - Labs CBC & Chem 7: 09/19/18 06:00 09/19/18 06:00 Laboratory Results - last 24 hr 09/18/18 09/18/18 09/19/18 17:36 23:14 06:00 WBC 11.6 H RBC 3.19 L Hgb 8.7 L Hct 27.0 L MCV 84.6 MCH 27.4 MCHC 32.4 RDW 16.1 Plt Count 180 MPV 8.5 Neut % (Auto) 79.7 H Lymph % (Auto) 9.5 [place] % (Auto) 7.4 Eos % (Auto) 3.1 Baso % (Auto) 0.3 Neut # (Auto) 9.3 H Lymph # (Auto) 1.1 [place] # (Auto) 0.9 Eos # (Auto) 0.4 Baso # (Auto) 0.0 WBC Differential . Differential Comment Auto diff final Sodium Potassium Chloride Carbon Dioxide Anion Gap BUN Creatinine Estimated GFR POC Glucose 112 H 138 H Random Glucose Calcium Phosphorus Magnesium Total Bilirubin AST ALT Alkaline Phosphatase Total Protein Albumin 09/19/18 09/19/18 06:00 11:51 WBC RBC Hgb Hct MCV MCH MCHC RDW Plt Count MPV Neut % (Auto) Lymph % (Auto) [place] % (Auto) Eos % (Auto) Baso % (Auto) Neut # (Auto) Lymph # (Auto) [place] # (Auto) Eos # (Auto) Baso # (Auto) WBC Differential Differential Comment Sodium 144 Potassium 3.2 L Chloride 108 H Carbon Dioxide 26.9 Anion Gap 9 BUN 14 Creatinine 1.07 H Estimated GFR 52 L POC Glucose 155 H Random Glucose 125 H Calcium 7.9 L Phosphorus 2.2 L D Magnesium 2.0 Total Bilirubin 0.7 AST 18 ALT 15 Alkaline Phosphatase 82 Total Protein 6.3 L Albumin 2.2 L Microbiology 09/18/18 13:00 Bronchial Washings - Right Middle Lobe Acid Fast Bacilli Smear - Final No acid fast bacilli seen 09/18/18 11:10 Sputum - Endotracheal Gram Stain - Final 09/18/18 11:10 Sputum - Endotracheal Sputum Culture - Preliminary S. aureus MRSA 09/18/18 13:00 Bronchial - Right Middle Lobe Gram Stain - Final 09/18/18 13:00 Bronchial - Right Middle Lobe Bronchial Culture - Preliminary S. aureus MRSA 09/18/18 13:00 Bronchial Washings - Right Middle Lobe Fungal Smear - Final No fungal elements seen 09/17/18 16:00 Blood - Peripheral Aerobic Blood Culture - Preliminary No growth in 2 days 09/17/18 16:00 Blood - Peripheral Anaerobic Blood Culture - Preliminary No growth in 2 days 09/17/18 16:05 Blood - Peripheral Aerobic Blood Culture - Preliminary No growth in 2 days 09/17/18 16:05 Blood - Peripheral Anaerobic Blood Culture - Preliminary No growth in 2 days - Imaging Impressions Chest X-Ray 09/19/18 06:00 CONCLUSION: 1. Bibasilar airspace disease with some improving aeration in the right base. 2. Stable position of life-support tubes. 3. Stable elevation of the left hemidiaphragm. Stable cardiomegaly. Assessment and Plan - Plan RESPIRATORY FAILURE COPD CHF RAD AFIB PLAN vent support bronchodilator therapy FOR TRACHEOSTOMY
[2018-09-19 20:18] LABS: Potassium 3.5 meq/L (3.5-5.1)
[2018-09-19 20:24] LABS: Phosphorus 3.3 mg/dL (2.5-4.9)
[2018-09-19] MEDS: Potassium Chloride Liq 20 MEQ/15 ML UDC PO PRN (20:27)
[2018-09-20] MEDS: Insulin NovoLOG Aspart Correctional Sugar Inj SQ SCH ×4 (00:43→18:09)
[2018-09-20] MEDS: Oral Hygiene Kit OROPHARYNG SCH ×4 (00:43→16:58)
[2018-09-20] MEDS: Artificial Tears Opth Drops 15 ML Bottle EACH EYE SCH ×3 (02:47→18:10)
[2018-09-20] MEDS: Chlorhexidine Gluconate 2% 1 Pack (2 Cloths) TOPICAL SCH (03:15)
[2018-09-20 08:26] LABS: Baso % (Auto) 0.4 % (0.0-2.0); Eos # (Auto) 0.5 th/mm3 (0.0-0.4); Eos % (Auto) 4.3 % (0.0-4.0); Hematocrit 28.5 % (35.0-46.0); Hemoglobin 9.8 gm/dL (11.6-15.3); Lymph # (Auto) 1.1 th/mm3 (1.0-4.8); Lymph % (Auto) 8.9 % (9.0-44.0); Mean Corpuscular HGB Conc 34.3 % (32.0-36.0); Mean Corpuscular Hemoglobin 29.3 pg (27.0-34.0); Mean Corpuscular Volume 85.4 fL (80.0-100.0); Mean Platelet Volume 8.1 fL (7.0-11.0); Mono # (Auto) 0.8 th/mm3 (0.0-0.9); Mono % (Auto) 6.7 % (0.0-8.0); Neut # (Auto) 9.7 th/mm3 (1.8-7.7); Neut % (Auto) 79.7 % (16.0-70.0); Platelet Count 210 th/mm3 (150-450); Red Blood Count 3.34 mil/mm3 (4.00-5.30); Red Cell Distribution Width 16.3 % (11.6-17.2); White Blood Count 12.1 th/mm3 (4.0-11.0)
--- NOTE | 2018-09-20 08:26 | P.PNCC ---
Subjective Subjective Remarks/Hospital Course: This is a 63-year-old female. Date of admission 09/14/2018. Date of consultation 09/15/2018. Past medical history includes paroxysmal atrial fibrillation currently normal sinus rhythm, elevated BMI, congestive heart failure with last documented ejection fraction 55% 2012, COPD, hypertension, left bundle branch block essential tremors. Patient originally planned to [id number] on 09/14/2018 with worsening shortness of breath slowly on coming over the past couple weeks. She also noticed increasing bilateral lower extremity edema. Per documentation, patient recently saw her signal tester Dr. Silverman on Wednesday who asked her to drink as much fluid and juice as she possibly could and reduce her dose of Lasix from 20 mg twice a day to once a day. During current hospitalization, patient resume home medications of enalapril, furosemide, metoprolol and hydralazine. Patient seen by cardiology and pulmonology. Refusing to be from central sleep apnea. Currently on ipratropium aerosols every [address] House. Seen by Dr. Chew. Switch to sotalol 80 mg twice daily and diuresis furosemide 40 mg IV twice daily. This morning, patient was found obtunded. PH was 7.17. Retaining CO2. Transfer to ICU and intubated using 20 mg etomidate. 09/16: No acute distress on mechanical ventilation. Arousable but not following commands. Tolerating tube feeding. Decreased urine output. Will Place Coello catheter to monitor accurate I's and O's 09/17: Failed extubation yesterday after 20 minutes. Extremely anxious. Currently on low-dose dexmedetomidine drip and bradycardic. Tube feeds restarted. Urine output has increased. 09/18: Some hemoptysis overnight. Enoxaparin held. Currently on CPAP trials at 40%. Started on vancomycin and aztreonam for fevers. Arousable and follows commands 09/19: Patient failed trial of extubation again yesterday, required bronchoscopy due to bloody secretions from ETT but no active bleeding was seen. 09/20: General surgery consulted for tracheostomy, patient was agreeable when I spoke with her yesterday but her daughter was hesitant. Awaiting their decision. The patient's sputum cultures are positive for MRSA, will consult ID. The patient wrote on a piece of paper to me that she is having hallucinations from precedex. She is requesting that I discontinue this medication. Objective Vital Signs / I&O: Vital Signs 09/19/18 08:17 09/19/18 10:00 09/19/18 11:27 Temperature Pulse Rate 68 75 Respiratory Rate 21 18 Blood Pressure Pulse Oximetry 97 09/19/18 12:00 09/19/18 14:00 09/19/18 16:00 Temperature 100.4 F H 99.7 F H Pulse Rate 65 60 63 Respiratory Rate 18 18 Blood Pressure 109/58 L 133/75 Pulse Oximetry 97 98 09/19/18 18:00 09/19/18 20:00 09/19/18 20:30 Temperature 99.1 F Pulse Rate 46 L 52 L 57 L Respiratory Rate 19 18 Blood Pressure 144/87 H Pulse Oximetry 97 97 09/19/18 22:00 09/20/18 00:00 09/20/18 00:12 Temperature 99 F Pulse Rate 45 L 48 L Respiratory Rate 18 18 Blood Pressure 106/68 Pulse Oximetry 95 95 09/20/18 00:35 09/20/18 02:00 09/20/18 03:15 Temperature Pulse Rate 51 L 52 L 58 L Respiratory Rate 18 18 Blood Pressure Pulse Oximetry 09/20/18 04:00 09/20/18 04:27 09/20/18 06:00 Temperature 99 F Pulse Rate 61 59 L Respiratory Rate 18 18 Blood Pressure 87/66 L Pulse Oximetry 96 95 Intake & Output 09/19/18 09/20/18 09/20/18 18:59 06:59 18:59 Intake Total 3196.5 / 3196.5 1259 / 1259 Output Total 425 / 425 325 / 325 Balance 2771.5 / 2771.5 934 / 934 Weight 148.1 kg Intake: IV 2332.5 / 2332.5 455 / 455 Precedex Inj 1,000 MCG In NS 250 / 250 355 / 355 Inj 240 ML @ 0.1 MCG/KG/HR 3.51 mls/hr IV.CONT TITRATE PRN Rx# :[id number] KCl Inj 20 MEQ Sodium Chloride 1000 / 1000 23.4% Inj 38.5 MEQ In Sterile Water for Inj 1,000 ML @ 84 mls /hr IV.CONT .Q12H9M [facility] Rx#: [id number] Azactam Inj 1,000 MG In NS Inj 200 / 200 100 / 100 100 ML @ 200 mls/hr IV.SIG Q8H [facility]ABLO Rx#:[id number] KCl 20 mEq Premix Inj 20 meq In 100 / 100 100 ml @ 50 mls/hr IV.SIG Q2H PRN Rx#:[id number] Potassium Phosphate Inj 30 MMOL 260 / 260 In NS Inj 250 ML @ 42 mls/hr IV.SIG UNSCH PRN Rx#:[id number] Vancomycin Inj 2,250 MG In NS 522.5 / 522.5 Inj 500 ML @ 250 mls/hr IV.SIG Q24H PABLO Rx#:[id number] Tube Feeding 264 / 264 204 / 204 Water Bolus Amount 300 / 300 300 / 300 Free Water Amount 300 / 300 300 / 300 Output: Urine Amount (Catheter) 425 / 425 325 / 325 Indwelling Urethral Catheter 425 / 425 Straight 325 / 325 Other: Date of Last Bowel Movement 09/13/18 09/13/18 # Bowel Movements 0 0 Result Diagrams: 09/20/18 08:06 09/19/18 19:04 Objective Remarks: GENERAL: Intubated, awake and alert SKIN: Warm and dry. HEAD: Atraumatic. Normocephalic. EYES: Pupils equal and round. No injection or drainage. ENT: No nasal bleeding or discharge. Mucous membranes pink and moist. NECK: Trachea midline. CARDIOVASCULAR: Borderline tachy, regular RESPIRATORY: No accessory muscle use, no respiratory distress, diminished breath sounds due to body habitus, secretions thick but not bloody GASTROINTESTINAL: Abdomen soft, non-tender, obese. MUSCULOSKELETAL: Trace nonpitting bilateral lower extremity edema. No obvious deformities. NEUROLOGICAL: RASS +1, awake and alert, writes questions on notepad, nods/ shakes head appropriately to yes/ no questions, CAM (-) Assessment and Plan - Assessment and Plan Plan: 63yF presenting with acute hypoxic respiratory failure and failed attempt at extubation x 2 Neuro/Psych: Anxiety disorder Chronic benzodiazepine use Patient is adamant that she wants me to stop precedex. Will d/c and start fentanyl for light sedation, goal RASS -1 PRN ativan for breakthrough anxiety Acetaminophen allergy documented CV: Paroxysmal atrial fibrillation currently normal sinus rhythm Congestive heart failure unknown etiology. Last echocardiogram EF 50-55% Elevated HDL Followed by cardiology Continue home medication hydralazine 10 mg twice daily * Switched to sotalol 80 mg twice daily by cardiology, hold home dose of metoprolol Currently holding enalapril 20 mg daily in light of hypotension and acute kidney injury Restart home dose of lasix and give additional IV dose this morning Echocardiogram: 09/06/12 - ejection fraction of 50-55% with normal wall motion Myocardial perfusion scan: 09/07/12 - slight ischemia in the LAD distribution with an ejection fraction of 60 Resp: Acute respiratory failure with CO2 retention Obstructive sleep apnea -untreated Previous diagnosis of COPD Obesity hypoventilation syndrome Hemoptysis Last PFT showed mild restrictive lung disease. No obstructive component Followed by pulmonology Currently ipratropium aerosols every 4 hours scheduled Pharmacologic prophylaxis held due to hemoptysis, no source of bleeding noted on bronch 09/18 Patient will need tracheostomy as she has failed several attempts at extubation GI: Gastroesophageal reflux disease Tube feeds- vital high-protein at 65 cc an hour Famotidine for GI prophylaxis Docusate sodium/senna 1 tablet twice daily for bowel regimen : No indication for Coello Endo: Acute hyperglycemia Sliding scale insulin Accu-Cheks to maintain euglycemia aspart insulin every 6 hours, increase to medium algorithm Renal: Acute kidney injury- improving Restart furosemide CHAPIS inhibitor discontinued due to KIKE Monitor urine output Accurate I's and O's Renal ultrasound only remarkable for incidental renal cyst; urine eosinophils, sodium and creatinine unremarkable Avoid nephrotoxic medications Heme: Leukocytosis Normocytic anemia No indication for transfusion of blood products at this time. Monitor CBC daily. Follow trends. ID: 09/15 sputum negative for influenza A and B No growth to date blood cultures x2 09/17 09/18 sputum culture positive for MRSA Empirically started on vancomycin and aztreonam over concern for HCAP, day #3 * Will consult ID as patient has severe MRSA pneumonia with hemoptysis and prolonged intubation. I anticipate we can narrow her antibiotics but would like to get their input first FEN: Hypernatremia Replace electrolytes as clinically indicated per ICU electrolyte protocol Continue free water flushes MSK: Elevated BMI Chronic low back pain Weight loss encouraged PT evaluate and treat Access -Utilize peripheral IV Prophylaxis -GI -famotidine -DVT -SCD/enoxaparin currently on hold due to hemoptysis OVERALL: This patient remains critically ill but stable. She requires continued ICU level of care. Level 2 follow up To help prompt me to consider important information that might be impacting today's encounter and assessment, information from prior notes written by myself or my colleagues may have been "brought forward" into today's note. My signature on this note, however, is an attestation that I personally performed the exam, history, and/or decision-making noted today, and, unless otherwise indicated, the interactions with patient, family, and staff as well as the review of records all occurred today. I also attest that the listed assessment and stated plan reflect my best clinical judgment today based on the combination of historical information, prior notes, and today's exam/ interactions. Code Status: Full
--- NOTE | 2018-09-20 08:33 | P.PNFP ---
Subjective Interval history: Patient seen and examined this morning - communication by writing on paper. States that something is blocking her breathing and she would like to be suctioned. She wants to continue her Ativan because she is having bad hallucinations on Precedex. She has not yet made a decision about having a tracheostomy and asked me if I think it is a good idea. She plans to decide by this evening. <Eko R3Soha U - 09/20/18 09:29> Results - Labs Result diagrams: 09/20/18 08:06 09/20/18 08:06 <Ray Fraire - 09/20/18 15:09> Abnormal lab results 09/19/18 09/20/18 09/20/18 Range/Units 17:37 00:22 05:40 WBC (4.0-11.0) th/mm3 RBC (4.00-5.30) mil/mm3 Hgb (11.6-15.3) gm/dL Hct (35.0-46.0) % Neut % (Auto) (16.0-70.0) % Lymph % (Auto) (9.0-44.0) % Eos % (Auto) (0.0-4.0) % Neut # (Auto) (1.8-7.7) th/mm3 Eos # (Auto) (0.0-0.4) th/mm3 Chloride (98-107) meq/L Creatinine (0.50-1.00) mg/dL Estimated GFR (>89) mL/min POC Glucose 139 H 131 H 136 H (68-110) mg/dl Random Glucose (74-106) mg/dL 09/20/18 09/20/18 09/20/18 Range/Units 08:06 08:06 12:45 WBC 12.1 H (4.0-11.0) th/mm3 RBC 3.34 L (4.00-5.30) mil/mm3 Hgb 9.8 L (11.6-15.3) gm/dL Hct 28.5 L (35.0-46.0) % Neut % (Auto) 79.7 H (16.0-70.0) % Lymph % (Auto) 8.9 L (9.0-44.0) % Eos % (Auto) 4.3 H (0.0-4.0) % Neut # (Auto) 9.7 H (1.8-7.7) th/mm3 Eos # (Auto) 0.5 H (0.0-0.4) th/mm3 Chloride 109 H (98-107) meq/L Creatinine 1.06 H (0.50-1.00) mg/dL Estimated GFR 52 L (>89) mL/min POC Glucose 120 H (68-110) mg/dl Random Glucose 122 H (74-106) mg/dL Short CBC 09/20/18 Range/Units 08:06 WBC 12.1 H (4.0-11.0) th/mm3 Hgb 9.8 L (11.6-15.3) gm/dL Hct 28.5 L (35.0-46.0) % Plt Count 210 (150-450) th/mm3 BMP 09/19/18 09/20/18 19:04 08:06 Sodium 144 Potassium 3.5 3.8 Chloride 109 H Carbon Dioxide 26.4 BUN 14 Creatinine 1.06 H Calcium 8.5 <Ray Fraire - 09/20/18 15:09> Abnormal lab results 09/19/18 09/19/18 09/20/18 Range/Units 11:51 17:37 00:22 WBC (4.0-11.0) th/mm3 RBC (4.00-5.30) mil/mm3 Hgb (11.6-15.3) gm/dL Hct (35.0-46.0) % Neut % (Auto) (16.0-70.0) % Lymph % (Auto) (9.0-44.0) % Eos % (Auto) (0.0-4.0) % Neut # (Auto) (1.8-7.7) th/mm3 Eos # (Auto) (0.0-0.4) th/mm3 POC Glucose 155 H 139 H 131 H (68-110) mg/dl 09/20/18 09/20/18 Range/Units 05:40 08:06 WBC 12.1 H (4.0-11.0) th/mm3 RBC 3.34 L (4.00-5.30) mil/mm3 Hgb 9.8 L (11.6-15.3) gm/dL Hct 28.5 L (35.0-46.0) % Neut % (Auto) 79.7 H (16.0-70.0) % Lymph % (Auto) 8.9 L (9.0-44.0) % Eos % (Auto) 4.3 H (0.0-4.0) % Neut # (Auto) 9.7 H (1.8-7.7) th/mm3 Eos # (Auto) 0.5 H (0.0-0.4) th/mm3 POC Glucose 136 H (68-110) mg/dl Short CBC 09/20/18 Range/Units 08:06 WBC 12.1 H (4.0-11.0) th/mm3 Hgb 9.8 L (11.6-15.3) gm/dL Hct 28.5 L (35.0-46.0) % Plt Count 210 (150-450) th/mm3 BMP 09/19/18 19:04 Potassium 3.5 <Eko R3,Soha U - 09/20/18 08:33> Physical Exam Vital signs: Vital Signs 09/19/18 16:00 09/19/18 18:00 09/19/18 20:00 Temperature 99.7 F H 99.1 F Pulse Rate 63 46 L 52 L Respiratory Rate 18 19 Blood Pressure 133/75 144/87 H Pulse Oximetry 98 97 09/19/18 20:30 09/19/18 22:00 09/20/18 00:00 Temperature 99 F Pulse Rate 57 L 45 L 48 L Respiratory Rate 18 18 Blood Pressure 106/68 Pulse Oximetry 97 95 09/20/18 00:12 09/20/18 00:35 09/20/18 02:00 Temperature Pulse Rate 51 L 52 L Respiratory Rate 18 18 Blood Pressure Pulse Oximetry 95 09/20/18 03:15 09/20/18 04:00 09/20/18 04:27 Temperature 99 F Pulse Rate 58 L 61 Respiratory Rate 18 18 18 Blood Pressure 87/66 L Pulse Oximetry 96 95 09/20/18 06:00 09/20/18 08:58 09/20/18 11:36 Temperature Pulse Rate 59 L 73 63 Respiratory Rate 18 20 Blood Pressure Pulse Oximetry 100 100 Intake & Output 09/19/18 09/20/18 09/20/18 18:59 06:59 18:59 Intake Total 3196.5 / 3196.5 1259 / 1259 631 / 631 Output Total 425 / 425 325 / 325 Balance 2771.5 / 2771.5 934 / 934 631 / 631 Weight 148.1 kg Intake: IV 2332.5 / 2332.5 455 / 455 431 / 431 Precedex Inj 1,000 MCG In NS 250 / 250 355 / 355 31 / 31 Inj 240 ML @ 0.1 MCG/KG/HR 3.51 mls/hr IV.CONT TITRATE PRN Rx# :[id number] KCl Inj 20 MEQ Sodium Chloride 1000 / 1000 23.4% Inj 38.5 MEQ In Sterile Water for Inj 1,000 ML @ 84 mls /hr IV.CONT .Q12H9M [facility] Rx#: [id number] Azactam Inj 1,000 MG In NS Inj 200 / 200 100 / 100 100 / 100 100 ML @ 200 mls/hr IV.SIG Q8H [facility] Rx#:[id number] Zyvox 600 mg Premix 300 ML @ 300 / 300 300 mls/hr IV.SIG Q12H [facility] Rx#: [id number] KCl 20 mEq Premix Inj 20 meq In 100 / 100 100 ml @ 50 mls/hr IV.SIG Q2H PRN Rx#:[id number] Potassium Phosphate Inj 30 MMOL 260 / 260 In NS Inj 250 ML @ 42 mls/hr IV.SIG UNSCH PRN Rx#:[id number] Vancomycin Inj 2,250 MG In NS 522.5 / 522.5 Inj 500 ML @ 250 mls/hr IV.SIG Q24H [facility] Rx#:[id number] Tube Feeding 264 / 264 204 / 204 Water Bolus Amount 300 / 300 300 / 300 Free Water Amount 300 / 300 300 / 300 200 / 200 Output: Urine Amount (Catheter) 425 / 425 325 / 325 Indwelling Urethral Catheter 425 / 425 Straight 325 / 325 Other: Date of Last Bowel Movement 09/13/18 09/13/18 # Bowel Movements 0 0 <Ray Fraire - 09/20/18 15:09> Vital Signs 09/19/18 10:00 09/19/18 11:27 09/19/18 12:00 Temperature 100.4 F H Pulse Rate 75 65 Respiratory Rate 18 18 Blood Pressure 109/58 L Pulse Oximetry 97 09/19/18 14:00 09/19/18 16:00 09/19/18 18:00 Temperature 99.7 F H Pulse Rate 60 63 46 L Respiratory Rate 18 Blood Pressure 133/75 Pulse Oximetry 98 09/19/18 20:00 09/19/18 20:30 09/19/18 22:00 Temperature 99.1 F Pulse Rate 52 L 57 L 45 L Respiratory Rate 19 18 Blood Pressure 144/87 H Pulse Oximetry 97 97 09/20/18 00:00 09/20/18 00:12 09/20/18 00:35 Temperature 99 F Pulse Rate 48 L 51 L Respiratory Rate 18 18 18 Blood Pressure 106/68 Pulse Oximetry 95 95 09/20/18 02:00 09/20/18 03:15 09/20/18 04:00 Temperature 99 F Pulse Rate 52 L 58 L 61 Respiratory Rate 18 18 Blood Pressure 87/66 L Pulse Oximetry 96 09/20/18 04:27 09/20/18 06:00 Temperature Pulse Rate 59 L Respiratory Rate 18 Blood Pressure Pulse Oximetry 95 Intake & Output 09/19/18 09/20/18 09/20/18 18:59 06:59 18:59 Intake Total 3196.5 / 3196.5 1259 / 1259 Output Total 425 / 425 325 / 325 Balance 2771.5 / 2771.5 934 / 934 Weight 148.1 kg Intake: IV 2332.5 / 2332.5 455 / 455 Precedex Inj 1,000 MCG In NS 250 / 250 355 / 355 Inj 240 ML @ 0.1 MCG/KG/HR 3.51 mls/hr IV.CONT TITRATE PRN Rx# :[id number] KCl Inj 20 MEQ Sodium Chloride 1000 / 1000 23.4% Inj 38.5 MEQ In Sterile Water for Inj 1,000 ML @ 84 mls /hr IV.CONT .Q12H9M PABLO Rx#: [id number] Azactam Inj 1,000 MG In NS Inj 200 / 200 100 / 100 100 ML @ 200 mls/hr IV.SIG Q8H [facility] Rx#:[id number] KCl 20 mEq Premix Inj 20 meq In 100 / 100 100 ml @ 50 mls/hr IV.SIG Q2H PRN Rx#:[id number] Potassium Phosphate Inj 30 MMOL 260 / 260 In NS Inj 250 ML @ 42 mls/hr IV.SIG UNSCH PRN Rx#:[id number] Vancomycin Inj 2,250 MG In NS 522.5 / 522.5 Inj 500 ML @ 250 mls/hr IV.SIG Q24H [facility] Rx#:[id number] Tube Feeding 264 / 264 204 / 204 Water Bolus Amount 300 / 300 300 / 300 Free Water Amount 300 / 300 300 / 300 Output: Urine Amount (Catheter) 425 / 425 325 / 325 Indwelling Urethral Catheter 425 / 425 Straight 325 / 325 Other: Date of Last Bowel Movement 09/13/18 09/13/18 # Bowel Movements 0 0 <Eko R3,Soha U - 09/20/18 08:33> Narrative: Narrative: GENERAL: Intubated. Awake, alert. Following commands, writing on paper. SKIN: Warm and dry. HEAD: Atraumatic. Normocephalic. EYES: Pupils equal and round. EOMI. No scleral icterus. No injection or drainage. NECK: Trachea midline. No JVD. CARDIOVASCULAR: Regular rate and rhythm. No murmur appreciated. RESPIRATORY: Transmitted upper airway sounds with bilateral expiratory wheezing. Good air movement GASTROINTESTINAL: Abdomen soft, nondistended. Bowel sounds are present but not very active EXTREMITIES: Early venous stasis changes noted bilaterally. Bilateral 2+ pitting pre-tibial edema <Eko R3,Soha U - 09/20/18 09:17> - Urinary Catheter Management Indwelling Urethral Catheter Cath placed during this visit: no <Prevatte,Ray - 09/20/18 15:09> yes, but has since been removed by the nurse <[facility] - 09/20/18 09:29> Reason for continuing: Not indwelling catheter <[facility] 09/[facility] 08 :33> Removal date: 09/19/18 <Eko R3Soha [facility] 09/20/18 08:33> Removal time: 18:00 <Eko R3,Soha U - 09/20/18 08:33> Straight Cath placed during this visit: no <Prevatte,Ray 09/20/18 15:09> yes, but has since been removed by the nurse <Eko LaineSoha U - 09/20/18 09:29> Reason for continuing: Not indwelling catheter <Eko R3LaineSoha U - 09/20/18 08 :33> Insertion date: 09/20/18 <Eko R3,Soha U - 09/20/18 08:33> Insertion time: 02:45 <Eko R3,Soha U - 09/20/18 08:33> Removal date: 09/20/18 <Eko R3,Soha U - 09/20/18 08:33> Removal time: 03:00 <Eko R3,Soha U - 09/20/18 08:33> Assessment and Plan - Assessment (1) Acute respiratory failure Code(s): J96.00 - Acute respiratory failure, unspecified whether with hypoxia or hypercapnia Status: Acute (2) MRSA pneumonia Code(s): J15.212 - Pneumonia due to Methicillin resistant Staphylococcus aureus Status: Acute (3) RAD (obstructive sleep apnea) Code(s): G47.33 - Obstructive sleep apnea (adult) (pediatric) Status: Acute (4) CHF exacerbation Code(s): I50.9 - Heart failure, unspecified Status: Acute (5) Hypertension Code(s): I10 - Essential (primary) hypertension Status: Acute (6) COPD (chronic obstructive pulmonary disease) Code(s): J44.9 - Chronic obstructive pulmonary disease, unspecified Status: Acute (7) GERD (gastroesophageal reflux disease) Code(s): K21.9 - Gastro-esophageal reflux disease without esophagitis Status: Acute (8) Afib Code(s): I48.91 - Unspecified atrial fibrillation Status: Acute (9) Anxiety Code(s): F41.9 - Anxiety disorder, unspecified Status: Acute (10) Tremors of nervous system Code(s): R25.1 - Tremor, unspecified Status: Acute (11) Chronic back pain Code(s): M54.9 - Dorsalgia, unspecified; G89.29 - Other chronic pain Status: Acute (12) Anemia Code(s): D64.9 - Anemia, unspecified Status: Acute (13) KIKE (acute kidney injury) Code(s): N17.9 - Acute kidney failure, unspecified Status: Acute <Prevatte,Ray - 09/20/18 15:09> (1) Acute respiratory failure Code(s): J96.00 - Acute respiratory failure, unspecified whether with hypoxia or hypercapnia Status: Acute (2) MRSA pneumonia Code(s): J15.212 - Pneumonia due to Methicillin resistant Staphylococcus aureus Status: Acute (3) RAD (obstructive sleep apnea) Code(s): G47.33 - Obstructive sleep apnea (adult) (pediatric) Status: Acute (4) CHF exacerbation Code(s): I50.9 - Heart failure, unspecified Status: Acute (5) Hypertension Code(s): I10 - Essential (primary) hypertension Status: Acute (6) COPD (chronic obstructive pulmonary disease) Code(s): J44.9 - Chronic obstructive pulmonary disease, unspecified Status: Acute (7) GERD (gastroesophageal reflux disease) Code(s): K21.9 - Gastro-esophageal reflux disease without esophagitis Status: Acute (8) Afib Code(s): I48.91 - Unspecified atrial fibrillation Status: Acute (9) Anxiety Code(s): F41.9 - Anxiety disorder, unspecified Status: Acute (10) Tremors of nervous system Code(s): R25.1 - Tremor, unspecified Status: Acute (11) Chronic back pain Code(s): M54.9 - Dorsalgia, unspecified; G89.29 - Other chronic pain Status: Acute (12) Anemia Code(s): D64.9 - Anemia, unspecified Status: Acute (13) KIKE (acute kidney injury) Code(s): N17.9 - Acute kidney failure, unspecified Status: Acute <Eko R3Soha U - 09/20/18 09:28> - Assessment and Plan 63-year-old female presented with shortness of breath presumed to be due to CHFpEF but likely related to her chronic obstructive sleep apnea. The patient was noted to be obtunded 09/15 with acute respiratory failure and marked CO2 retention requiring emergent intubation with mechanical ventilation. On 09/18, bronchoscopy was performed with removal of copious amounts of mucus mixed with bright red blood from both bronchi. She was also started on vancomycin and aztreonam due to fevers. Bronchial washings and sputum grew MRSA - ID consulted on 09/20/2018. Acute respiratory failure -s/p emergent intubation 2/14 AM, still intubated - failed CPAP trials x2 -Bronchoscopy with washings performed on 09-18 * Cultures positive for MRSA * ID consulted -Critical care on board -Continue mechanical ventilation -Precedex discontinued due to pt's report of hallucinations - switch to Fentanyl for light sedation MRSA Pneumonia -Bronchial washings and sputum grew MRSA -TMax of 100.6 in the past 24 hours -Blood cultures no growth x 1 day -Patient on vancomycin and aztreonam on 09/18 -ID consult pending Obstructive sleep apnea with obesity hypoventilation syndrome -Plan as above -Patient has been refusing CPAP/BiPAP and had reported on day of admission extreme claustrophobia and anxiety when previously trying these therapies -Pulmonology on board. Patient known to Dr. House -Patient and patient's daughter indicated initial consent for a tracheostomy but still decided * General surgery has been consulted for placement Acute Kidney Injury - Improved - Restart Furosemide - Coello catheter placed for I/Os - Strict Is and Os - Avoid nephrotoxic medications CHF -Presumed exacerbation of CHF on admission, diastolic dysfunction -However, symptoms are more related towards the patients chronic and untreated RAD -Monitor strict I/O's -Restart Furosemide due to improvement in kidney function -Continue home sotalol if BP can tolerate -Cardiology on board, appreciate recommendations Hypertension -Monitor vital signs -Hold home BP medications given low borderline blood pressure with sedation COPD -The patient carries a diagnosis of COPD per chart review -Possible heavy secondhand smoke exposure or symptoms all stemming from RAD -Spiriva nebulizer 0.5 mg q4h scheduled - patient reports allergy to albuterol Anemia -Patient has chronic anemia -Currently stable, continue to monitor CBC daily Anxiety -Resume home lorazepam 1 mg p.o. twice daily scheduled GERD -On Famotidine for ppx Chronic back pain/arthritis -Allergic to multiple medications including ibuprofen and Tylenol, not on any pain medications at home -Consider alternative therapies if needed -PT evaluate and treat while in the hospital once patient is extubated FEN/ppx F: Free water flushes E: On ICU electrolyte protocol N: Tube feeds with Jevity 1.5 kcal, goal 50 cc/hr * Nutrition recommends a vital high-protein at 65 cc an hour -DVT ppx: held due to hemoptysis, SCDs in place -GI ppx: Famotidine, Senna/Docusate <Eko R3,Soha U - 09/20/18 09:29> Discharge Planning: Pending clinical improvement <Eko R3,Soha U - 09/20/18 08:33> - Attending Attestation The exam, history, and the medical decision-making described in the above note were completed with the assistance of the resident physician. I reviewed and agree with the findings presented. I attest that I had a [id number] encounter with the patient on the same day, and personally performed and documented my assessment and findings in the medical record. The patient is alert and responsive. Lung exam reveals good air movement bilaterally. Discussed in detail advantages and disadvantages of potential tracheostomy. The patient states that she will make a decision later today after discussions with her daughter. <Ray Fraire - 09/20/18 15:09>
[2018-09-20] MEDS ORDERED: fentaNYL 10 mcg/mL Premix Drip 2,500 MCG/250 ML BAG IV.SIG PRN (08:50)
[2018-09-20 09:16] LABS: Calcium 8.5 mg/dL (8.5-10.1); Carbon Dioxide 26.4 meq/L (21.0-32.0); Magnesium 2.2 mg/dL (1.5-2.5); Potassium 3.8 meq/L (3.5-5.1)
[2018-09-20] MEDS: Senna/Docusate Sodium 8.6/50 MG Tablet PO SCH ×2 (09:37→21:38)
[2018-09-20] MEDS: Simethicone 125 MG Chew Tablet PO SCH (09:37)
[2018-09-20] MEDS: LORazepam 0.5 MG Tablet NG/OG PRN ×2 (09:38→18:09)
[2018-09-20] MEDS: Famotidine PF Inj 20 MG/2 ML Vial IV.PUSH SCH ×2 (09:39→21:35)
[2018-09-20] MEDS: Mupirocin 2% Nasal Oint Topical Syringe EACH NARE SCH ×2 (09:40→21:36)
[2018-09-20] MEDS: Chlorhexidine 0.12% Oral Kit 15 ML UDC OROPHARYNG SCH ×2 (09:43→21:39)
[2018-09-20] MEDS ORDERED: Furosemide 20 MG Tablet PO SCH (10:00)
--- NOTE | 2018-09-20 11:25 | P.CONID ---
History of Present Illness Service: Infectious Disease Consult date: 09/20/18 Requesting Physician: Marisol Hadley Reason for Consult: Evaluation and Mment of fever in pt with MRSA Pneumonia Primary Care Provider: Malathi Silverman MD Chief Complaint: Shortness of breath History of Present Illness: Ms. Valencia is a 63-year-old female with past medical history significant for A. fib with RVR, hypertension with history of hypertensive urgency, congestive heart failure, COPD as well as a history of depression and anxiety. Patient was admitted on September 14, 2018 evaluated in the emergency patient presented initially to [facility] ED with complaints of shortness of breath that was going on for a few weeks but in the 2-3 days prior to admission and had actually worsened. Patient also had started noticing increasing swelling of bilateral feet reportedly. As reported to others she was having difficulty lying on her side and difficulty laying flat. Patient also had reported tremors in her hands while holding objects. Patient reportedly had gained about 45 pounds in the last 3-4 months even though she has not been eating more than her U patient's online advertising analyst is Dr. Silverman and had reduced her dose of Lasix. Patient was initially admitted under family medicine service. Per review of records it appears that she has congestive heart failure with ejection fraction of 55% in 2013. There is also reported history of essential tremors. On September 15, 2018 patient clinically deteriorated with worsening shortness of breath and was found to be obtunded and therefore critical care was consulted and patient was transferred to the ICU. Her pH was 7.17 and she was retaining CO2 and for acute hypercarbic respiratory failure patient ended up being intubated. Patient had blood cultures which are negative. Patient has sputum cultures and bronch cultures positive for MRSA. Despite being treated with IV vancomycin patient continues to have fever which is concerning either for a drug fever or possible empyema or lung abscess. Her initial influenza testing with antigen was negative. At the time of my evaluation patient remains in the ICU currently intubated. Patient has been refusing Precedex and is currently wide awake on the ventilator and CPAP trial was attempted this morning. Patient communicates by writing on a piece of paper and writes appropriate sentences some questions. Patient currently is not on any pressors has decent urine output. Patient has no rash. Past medical history: Congestive heart failure with EF of 55% in 2013 COPD, denies ever smoking, uses 2 L of oxygen daily at home Anxiety Sleep apnea - no longer uses CPAP Paroxysmal atrial fibrillation with RVR. 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 Has a daughter who is the [facility] - History History Provided By: Patient - Medical History Medical History: Medical History (Last Updated 09/20/18 @ 08:50 by Candice Chavez) A-fib CHF (congestive heart failure) COPD (chronic obstructive pulmonary disease) History of MRSA infection Hypertension MDRO (multiple drug resistant organisms) resistance Oxygen dependent Sleep apnea - Surgical History Surgical History: Surgical History (Last Reviewed 09/20/18 @ 08:08 by Marisol Hadley DO) No pertinent past surgical history - Family History Family History: Family History (Last Reviewed 09/20/18 @ 08:08 by Marisol Hadley DO) Father Family history of cardiomyopathy - Tobacco History Second Hand Smoke Exposure: Yes Tobacco Use In Past 30 Days: No Smoking Status: Never smoker - Alcohol History How Often Do You Have a Drink Containing Alcohol: Never - Substance Use History Substance History: No History of Abuse - Immunization History Tetanus Immunization: <5 Years Hx Influenza Vaccine This Season: Yes Medications and Allergies Active Medications: Active Medications Al Hydroxide/Mg Hydroxide (Milk Of Kathi Quintanilla) 30 ml PO Q12H PRN PRN Reason: Mild Constipation Artificial Tears (Tears Naturale Opth Drops) 1 drop EACH EYE Q8H [facility] Last Admin: 09/20/18 09:41 Dose: 1 drop Aspirin (Aspirin Chew) 81 mg PO DAILY [facility] Last Admin: 09/20/18 09:40 Dose: 81 mg Bisacodyl (Dulcolax Supp) 10 mg RECTAL DAILY PRN PRN Reason: SEVERE CONSITIPATION Chlorhexidine Gluconate (Peridex 0.12% Oral Kit) 15 ml OROPHARYNG BID@0800, 2000 [facility] Last Admin: 09/20/18 09:43 Dose: 15 ml Chlorhexidine Gluconate (Chlorhexidine 2% Cloth) 3 pack TOPICAL DAILY@0400 [facility] Stop: 09/24/18 03:59 Last Admin: 09/20/18 03:15 Dose: 3 pack Chlorhexidine Gluconate (Chlorhexidine 2% Cloth) 3 pack TOPICAL DAILY@0400 PRN PRN Reason: Extra cloth needed Stop: 09/24/18 03:59 Dextrose (D50w Vial) 50 ml IV.PUSH UNSCH PRN PRN Reason: PER HYPOGLYCEMIA PROTOCOL Enoxaparin Sodium (Lovenox Inj) 40 mg SQ Q24H [facility] Last Admin: 09/17/18 09:15 Dose: 40 mg Famotidine (Pepcid Pf Inj) 20 mg IV.PUSH Q12HR [facility] Last Admin: 09/20/18 09:39 Dose: 20 mg Fluticasone Propionate (Flonase Nasal [place]) 1 spray NASAL DAILY PRN PRN Reason: NASAL CONGESTION Furosemide (Lasix) 20 mg PO DAILY [facility] Last Admin: 09/20/18 09:41 Dose: Not Given Glucagon (Glucagon Inj) 1 mg OTHER PRN PRN PRN Reason: for Hypoglycemia Protocol Hydralazine HCl (Apresoline) 10 mg PO BID [facility] Last Admin: 09/15/18 09:41 Dose: Not Given Magnesium Sulfate 4 gm/ Sodium (Chloride) 100 mls @ 50 mls/hr IV.SIG UNSCH PRN PRN Reason: For Magnesium 0.9 - 1.1 mg/dL Magnesium Sulfate 2 gm/ Sodium (Chloride) 100 mls @ 50 mls/hr IV.SIG UNSCH PRN PRN Reason: For Magnesium 1.2 - 1.6 mg/dL Potassium Chloride (Kcl 40 Meq Premix Inj) 40 meq in 100 mls @ 25 mls/hr IV.SIG Q2H PRN PRN Reason: For Potassium 2.8 - 3.2 mEq/L Potassium Chloride (Kcl 20 Meq Premix Inj) 20 meq in 100 mls @ 50 mls/hr IV.SIG Q2H PRN PRN Reason: For Potassium 3.3 - 3.5 mEq/L Potassium Chloride (Kcl 40 Meq Premix Inj) 40 meq in 100 mls @ 25 mls/hr IV.SIG UNSCH PRN PRN Reason: For Potassium 3.3 - 3.5 mEq/L Potassium Chloride (Kcl 20 Meq Premix Inj) 20 meq in 100 mls @ 50 mls/hr IV.SIG Q2H PRN PRN Reason: For Potassium 2.8 - 3.2 mEq/L Last Infusion: 09/19/18 08:59 Dose: Infused Potassium Phosphate 30 mmol/ (Sodium Chloride) 260 mls @ 42 mls/hr IV.SIG UNSCH PRN PRN Reason: SEE LABEL COMMENTS Last Infusion: 09/19/18 15:05 Dose: Infused Sodium Phosphate 30 mmol/ (Sodium Chloride) 260 mls @ 42 mls/hr IV.SIG UNSCH PRN PRN Reason: For Phosphorus < 2.5 mg/dL Aztreonam 1,000 mg/ Sodium (Chloride) 100 mls @ 200 mls/hr IV.SIG Q8H PABLO Last Infusion: 09/20/18 10:38 Dose: Infused Vancomycin HCl 2,250 mg/ (Sodium Chloride) 522.5 mls @ 250 mls/hr IV.SIG Q24H PABLO Last Infusion: 09/19/18 14:17 Dose: Infused Fentanyl (Fentanyl 10 Mcg/Ml Premix Drip) 2,500 mcg in 250 mls @ 5 mls/hr IV.SIG TITRATE PRN; Protocol PRN Reason: Per Protocol Insulin Aspart (Novolog Insulin Correctional Sugar Inj) 0 unit SQ Q6HR PABLO; Protocol Last Admin: 09/20/18 05:41 Dose: Not Given Ipratropium [place] (Atrovent Neb) 0.5 mg NEB Q4HR NEB [facility]ABLO Last Admin: 09/20/18 08:57 Dose: 0.5 mg Lactulose (Lactulose Liq) 30 ml PO DAILY PRN PRN Reason: SEVERE CONSITIPATION Last Admin: 09/20/18 05:40 Dose: 30 ml Lorazepam (Ativan) 0.5 mg NG/OG Q8H PRN PRN Reason: ANXIETY Last Admin: 09/20/18 09:38 Dose: 0.5 mg Magnesium Oxide (Mag-Ox) 800 mg PO UNSCH PRN PRN Reason: For Magnesium 1.2 - 1.6 mg/dL Metoclopramide HCl (Reglan Inj) 5 mg IV.PUSH Q8HR PABLO; Protocol Miscellaneous (Pill Splitter) 1 each OTHER UNSCH PRN PRN Reason: SEE LABEL COMMENTS Miscellaneous Information ([facility] Ordered Lab Info) 0 each OTHER ONCE ONE Stop: 09/21/18 12:46 Miscellaneous Medication () 1 each OROPHARYNG 0000,0400,1200,1600 [facility] Last Admin: 09/20/18 03:15 Dose: 1 each Mupirocin (Bactroban 2% Oint) 1 applicatio TOPICAL BID [facility] Last Admin: 09/20/18 09:40 Dose: 1 applicatio Mupirocin (Bactroban 2% Nasal Oint) 1 applicatio EACH NARE BID [facility] Stop: 09/23/18 09:01 Last Admin: 09/20/18 09:40 Dose: 1 applicatio Pharmacy Profile Note (Vancomycin Consult Pharmacy) 1 each OTHER UNSCH PRN PRN Reason: Pharmacy to dose Potassium Chloride (Kcl Liq) 40 meq PO UNSCH PRN PRN Reason: Potassium level 3.3-3.5 mEq/L Last Admin: 09/19/18 20:27 Dose: 40 meq Potassium Chloride (Kcl Liq) 40 meq PO UNSCH PRN PRN Reason: POTASSIUM LESS THAN 3.5 Potassium Phosphate (K-Phos Original) 2,000 mg PO UNSCH PRN PRN Reason: SEE LABEL COMMENTS Potassium Phosphate (K-Phos Original) 2,000 mg PO Q4H PRN PRN Reason: Phosphorus Less Than 2.5 mg/dL Senna/Docusate Sodium (Eulalia-Colace) 1 tab PO BID [facility] Last Admin: 09/20/18 09:37 Dose: 1 tab Sennosides (Senokot) 17.2 mg PO Q12H PRN PRN Reason: Moderate Constipation Simethicone (Phazyme Chew) 125 mg PO DAILY [facility] Last Admin: 09/20/18 09:37 Dose: 125 mg Sodium Chloride (Ns Flush) 2 ml IV.FLUSH BID [facility] Last Admin: 09/20/18 09:39 Dose: 2 ml Sodium Chloride (Ns Flush) 2 ml IV.FLUSH UNSCH PRN PRN Reason: FLUSH AFTER USING IV ACCESS Last Admin: 09/18/18 09:03 Dose: 2 ml Sotalol HCl (Betapace) 80 mg PO BID [facility] Last Admin: 09/20/18 09:38 Dose: 80 mg Sterile Water (Free Water) 100 ml NG/OG Q4H [facility] Last Admin: 09/20/18 09:40 Dose: 100 ml Allergies Allergy/AdvReac Type Severity Reaction Status Date / Time acetaminophen Allergy Severe Tachycardia, Verified 09/14/18 02:45 swelling hydrocodone Allergy Severe Tachycardia, Verified 09/14/18 02:45 swelling ibuprofen Allergy Severe Swelling Verified 09/14/18 02:45 morphine Allergy Severe Swelling Verified 09/14/18 02:45 propoxyphene Allergy Severe Swelling Verified 09/14/18 02:45 albuterol Allergy Intermediate Tachycardia Verified 09/14/18 02:45 amoxicillin Allergy Unknown Atrial Verified 09/14/18 02:45 Fibrillation codeine Allergy Unknown UNKNOWN Verified 09/14/18 02:45 sertraline Allergy Unknown UNKNOWN Verified 09/14/18 02:45 pantoprazole AdvReac Unknown Nausea/Vomi Verified 09/14/18 02:45 ting INHALERS FOR COPD (ALL) Allergy Severe PALPITATION Uncoded 09/14/18 02:45 S/DIAPHORES IS VICOPROFEN Allergy Severe Swelling Uncoded 09/14/18 02:45 "ANY PAIN PILLS" AdvReac Severe AFIB Uncoded 09/14/18 02:45 Home Medications Medication Instructions Recorded Confirmed Type enalapril maleate 5 mg PO DAILY 09/14/18 09/14/18 History furosemide [Lasix] 20 mg PO DAILY 09/14/18 09/14/18 History hydralazine 10 mg PO Q12H 09/14/18 09/14/18 History metoprolol tartrate 50 mg PO BID 09/14/18 09/14/18 History Exam Vital signs: Vital Signs 09/19/18 11:27 09/19/18 12:00 09/19/18 14:00 Temperature 100.4 F H Pulse Rate 65 60 Respiratory Rate 18 18 Blood Pressure 109/58 L Pulse Oximetry 97 09/19/18 16:00 09/19/18 18:00 09/19/18 20:00 Temperature 99.7 F H 99.1 F Pulse Rate 63 46 L 52 L Respiratory Rate 18 19 Blood Pressure 133/75 144/87 H Pulse Oximetry 98 97 09/19/18 20:30 09/19/18 22:00 09/20/18 00:00 Temperature 99 F Pulse Rate 57 L 45 L 48 L Respiratory Rate 18 18 Blood Pressure 106/68 Pulse Oximetry 97 95 09/20/18 00:12 09/20/18 00:35 09/20/18 02:00 Temperature Pulse Rate 51 L 52 L Respiratory Rate 18 18 Blood Pressure Pulse Oximetry 95 09/20/18 03:15 09/20/18 04:00 09/20/18 04:27 Temperature 99 F Pulse Rate 58 L 61 Respiratory Rate 18 18 18 Blood Pressure 87/66 L Pulse Oximetry 96 95 09/20/18 06:00 09/20/18 08:58 Temperature Pulse Rate 59 L 73 Respiratory Rate 18 Blood Pressure Pulse Oximetry 100 Intake & Output 09/19/18 09/20/18 09/20/18 18:59 06:59 18:59 Intake Total 3196.5 / 3196.5 1259 / 1259 231 / 231 Output Total 425 / 425 325 / 325 Balance 2771.5 / 2771.5 934 / 934 231 / 231 Weight 148.1 kg Intake: IV 2332.5 / 2332.5 455 / 455 131 / 131 Precedex Inj 1,000 MCG In NS 250 / 250 355 / 355 31 / 31 Inj 240 ML @ 0.1 MCG/KG/HR 3.51 mls/hr IV.CONT TITRATE PRN Rx# :[id number] KCl Inj 20 MEQ Sodium Chloride 1000 / 1000 23.4% Inj 38.5 MEQ In Sterile Water for Inj 1,000 ML @ 84 mls /hr IV.CONT .Q12H9M PABLO Rx#: [id number] Azactam Inj 1,000 MG In NS Inj 200 / 200 100 / 100 100 / 100 100 ML @ 200 mls/hr IV.SIG Q8H PABLO Rx#:[id number] KCl 20 mEq Premix Inj 20 meq In 100 / 100 100 ml @ 50 mls/hr IV.SIG Q2H PRN Rx#:[id number] Potassium Phosphate Inj 30 MMOL 260 / 260 In NS Inj 250 ML @ 42 mls/hr IV.SIG UNSCH PRN Rx#:[id number] Vancomycin Inj 2,250 MG In NS 522.5 / 522.5 Inj 500 ML @ 250 mls/hr IV.SIG Q24H PABLO Rx#:[id number] Tube Feeding 264 / 264 204 / 204 Water Bolus Amount 300 / 300 300 / 300 Free Water Amount 300 / 300 300 / 300 100 / 100 Output: Urine Amount (Catheter) 425 / 425 325 / 325 Indwelling Urethral Catheter 425 / 425 Straight 325 / 325 Other: Date of Last Bowel Movement 09/13/18 09/13/18 # Bowel Movements 0 0 Narrative: GENERAL: Morbidly obese, awake on the vent, large neck. SKIN: Cool and dry, no generalized rash HEAD: Atraumatic. Normocephalic. No temporal or scalp tenderness. EYES: Pupils equal round and reactive. Scleral icterus. No injection or drainage. No petechia ENT: Orally intubated NECK: Trachea midline. Supple, nontender, no meningeal signs. CARDIOVASCULAR: HS audible. RESPIRATORY: Air entry equal bilaterally. Clear to auscultation bilaterally. GASTROINTESTINAL: Abdomen soft,NT MUSCULOSKELETAL: Extremities without clubbing, cyanosis. NEUROLOGICAL: Sedated Psych could not be assessed Skin folds with no evidence of infection. IV line sites ok. Results - Labs CBC & Chem 7: 09/22/18 07:49 09/22/18 07:49 Labs: Laboratory Results - last 24 hr 09/19/18 09/19/18 09/19/18 11:51 17:37 19:04 WBC RBC Hgb Hct MCV MCH MCHC RDW Plt Count MPV Neut % (Auto) Lymph % (Auto) [place] % (Auto) Eos % (Auto) Baso % (Auto) Neut # (Auto) Lymph # (Auto) [place] # (Auto) Eos # (Auto) Baso # (Auto) WBC Differential Differential Comment Sodium Potassium 3.5 Chloride Carbon Dioxide Anion Gap BUN Creatinine Estimated GFR POC Glucose 155 H 139 H Random Glucose Calcium Phosphorus 3.3 D Magnesium 09/20/18 09/20/18 09/20/18 00:22 05:40 08:06 WBC 12.1 H RBC 3.34 L Hgb 9.8 L Hct 28.5 L MCV 85.4 MCH 29.3 MCHC 34.3 RDW 16.3 Plt Count 210 MPV 8.1 Neut % (Auto) 79.7 H Lymph % (Auto) 8.9 L [place] % (Auto) 6.7 Eos % (Auto) 4.3 H Baso % (Auto) 0.4 Neut # (Auto) 9.7 H Lymph # (Auto) 1.1 [place] # (Auto) 0.8 Eos # (Auto) 0.5 H Baso # (Auto) 0.0 WBC Differential . Differential Comment Auto diff final Sodium Potassium Chloride Carbon Dioxide Anion Gap BUN Creatinine Estimated GFR POC Glucose 131 H 136 H Random Glucose Calcium Phosphorus Magnesium 09/20/18 08:06 WBC RBC Hgb Hct MCV MCH MCHC RDW Plt Count MPV Neut % (Auto) Lymph % (Auto) [place] % (Auto) Eos % (Auto) Baso % (Auto) Neut # (Auto) Lymph # (Auto) [place] # (Auto) Eos # (Auto) Baso # (Auto) WBC Differential Differential Comment Sodium 144 Potassium 3.8 Chloride 109 H Carbon Dioxide 26.4 Anion Gap 9 BUN 14 Creatinine 1.06 H Estimated GFR 52 L POC Glucose Random Glucose 122 H Calcium 8.5 Phosphorus Magnesium 2.2 Assessment and Plan - Plan MRSA pneumonia rule out empyema or lung abscess Acute respiratory failure on vent,hypercarbic respiratory failure Morbid obesity History of sleep apnea was on CPAP has not been compliant History of congestive heart failure with EF of 55% History of A. fib Recommendations Discontinue vancomycin IV possible drug fever Continue Azactam IV Start Zyvox IV No new fevers WBC mildly elevated no change in clinical status clinically appears stable. Follow bron cultures Follow clinical course Case discussed with Dr. Hadley Case discussed with granddaughter was present in the room Case discussed with YULIANA
[2018-09-20] MEDS ORDERED: Diatrizoate Meglum/Diatrizoate Sod Liq 9 ML UDC PO ONE (13:00)
--- NOTE | 2018-09-20 15:44 | P.PNGS ---
Subjective Interval history: Resting in bed Able to communicate with pen and paper Physical Exam Vital signs: Vital Signs 09/19/18 16:00 09/19/18 18:00 09/19/18 20:00 Temperature 99.7 F H 99.1 F Pulse Rate 63 46 L 52 L Respiratory Rate 18 19 Blood Pressure 133/75 144/87 H Pulse Oximetry 98 97 09/19/18 20:30 09/19/18 22:00 09/20/18 00:00 Temperature 99 F Pulse Rate 57 L 45 L 48 L Respiratory Rate 18 18 Blood Pressure 106/68 Pulse Oximetry 97 95 09/20/18 00:12 09/20/18 00:35 09/20/18 02:00 Temperature Pulse Rate 51 L 52 L Respiratory Rate 18 18 Blood Pressure Pulse Oximetry 95 09/20/18 03:15 09/20/18 04:00 09/20/18 04:27 Temperature 99 F Pulse Rate 58 L 61 Respiratory Rate 18 18 18 Blood Pressure 87/66 L Pulse Oximetry 96 95 09/20/18 06:00 09/20/18 07:00 09/20/18 08:00 Temperature 98.6 F Pulse Rate 59 L 67 65 Respiratory Rate 20 19 Blood Pressure 123/76 134/80 Pulse Oximetry 99 96 09/20/18 08:58 09/20/18 09:00 09/20/18 10:00 Temperature Pulse Rate 73 62 71 Respiratory Rate 18 19 23 Blood Pressure 144/67 H 128/86 Pulse Oximetry 100 100 99 09/20/18 11:00 09/20/18 11:36 09/20/18 12:00 Temperature 98.6 F Pulse Rate 72 63 63 Respiratory Rate 25 H 20 21 Blood Pressure 118/83 110/69 Pulse Oximetry 94 L 100 94 L 09/20/18 13:00 09/20/18 14:00 09/20/18 15:00 Temperature Pulse Rate 76 74 76 Respiratory Rate 28 H 27 H 25 H Blood Pressure 149/86 H 132/85 117/87 Pulse Oximetry 92 L 97 98 Intake & Output 09/19/18 09/20/18 09/20/18 18:59 06:59 18:59 Intake Total 3196.5 / 3196.5 1259 / 1259 631 / 631 Output Total 425 / 425 325 / 325 Balance 2771.5 / 2771.5 934 / 934 631 / 631 Weight 148.1 kg Intake: IV 2332.5 / 2332.5 455 / 455 431 / 431 Precedex Inj 1,000 MCG In NS 250 / 250 355 / 355 31 / 31 Inj 240 ML @ 0.1 MCG/KG/HR 3.51 mls/hr IV.CONT TITRATE PRN Rx# :[id number] KCl Inj 20 MEQ Sodium Chloride 1000 / 1000 23.4% Inj 38.5 MEQ In Sterile Water for Inj 1,000 ML @ 84 mls /hr IV.CONT .Q12H9M PABLO Rx#: [id number] Azactam Inj 1,000 MG In NS Inj 200 / 200 100 / 100 100 / 100 100 ML @ 200 mls/hr IV.SIG Q8H PABLO Rx#:[id number] Zyvox 600 mg Premix 300 ML @ 300 / 300 300 mls/hr IV.SIG Q12H PABLO Rx#: [id number] KCl 20 mEq Premix Inj 20 meq In 100 / 100 100 ml @ 50 mls/hr IV.SIG Q2H PRN Rx#:[id number] Potassium Phosphate Inj 30 MMOL 260 / 260 In NS Inj 250 ML @ 42 mls/hr IV.SIG UNSCH PRN Rx#:[id number] Vancomycin Inj 2,250 MG In NS 522.5 / 522.5 Inj 500 ML @ 250 mls/hr IV.SIG Q24H PABLO Rx#:[id number] Tube Feeding 264 / 264 204 / 204 Water Bolus Amount 300 / 300 300 / 300 Free Water Amount 300 / 300 300 / 300 200 / 200 Output: Urine Amount (Catheter) 425 / 425 325 / 325 Indwelling Urethral Catheter 425 / 425 Straight 325 / 325 Other: Date of Last Bowel Movement 09/13/18 09/13/18 09/13/18 # Bowel Movements 0 0 Narrative: Alert and awake Neck: trachea palpable Abd: soft; obese - Urinary Catheter Management Straight Cath placed during this visit: yes, but has since been removed by the nurse Reason for continuing: Not indwelling catheter Insertion date: 09/20/18 Insertion time: 02:45 Removal date: 09/20/18 Removal time: 03:00 Indwelling Urethral Catheter Cath placed during this visit: yes, but has since been removed by the nurse Reason for continuing: Not indwelling catheter Removal date: 09/19/18 Removal time: 18:00 Results - Labs 09/20/18 08:06 09/20/18 08:06 Laboratory Results - last 24 hr 09/19/18 09/19/18 09/20/18 17:37 19:04 00:22 WBC RBC Hgb Hct MCV MCH MCHC RDW Plt Count MPV Neut % (Auto) Lymph % (Auto) [place] % (Auto) Eos % (Auto) Baso % (Auto) Neut # (Auto) Lymph # (Auto) [place] # (Auto) Eos # (Auto) Baso # (Auto) WBC Differential Differential Comment Sodium Potassium 3.5 Chloride Carbon Dioxide Anion Gap BUN Creatinine Estimated GFR POC Glucose 139 H 131 H Random Glucose Calcium Phosphorus 3.3 D Magnesium 09/20/18 09/20/18 09/20/18 05:40 08:06 08:06 WBC 12.1 H RBC 3.34 L Hgb 9.8 L Hct 28.5 L MCV 85.4 MCH 29.3 MCHC 34.3 RDW 16.3 Plt Count 210 MPV 8.1 Neut % (Auto) 79.7 H Lymph % (Auto) 8.9 L [place] % (Auto) 6.7 Eos % (Auto) 4.3 H Baso % (Auto) 0.4 Neut # (Auto) 9.7 H Lymph # (Auto) 1.1 [place] # (Auto) 0.8 Eos # (Auto) 0.5 H Baso # (Auto) 0.0 WBC Differential . Differential Comment Auto diff final Sodium 144 Potassium 3.8 Chloride 109 H Carbon Dioxide 26.4 Anion Gap 9 BUN 14 Creatinine 1.06 H Estimated GFR 52 L POC Glucose 136 H Random Glucose 122 H Calcium 8.5 Phosphorus Magnesium 2.2 09/20/18 12:45 WBC RBC Hgb Hct MCV MCH MCHC RDW Plt Count MPV Neut % (Auto) Lymph % (Auto) [place] % (Auto) Eos % (Auto) Baso % (Auto) Neut # (Auto) Lymph # (Auto) [place] # (Auto) Eos # (Auto) Baso # (Auto) WBC Differential Differential Comment Sodium Potassium Chloride Carbon Dioxide Anion Gap BUN Creatinine Estimated GFR POC Glucose 120 H Random Glucose Calcium Phosphorus Magnesium - Imaging Imaging: ITS Impressions Abdomen/Bladder Ultrasound 09/16/18 08:29 CONCLUSION: 1. Negative renal sonogram other than right renal cyst. Chest X-Ray 09/19/18 06:00 CONCLUSION: 1. Bibasilar airspace disease with some improving aeration in the right base. 2. Stable position of life-support tubes. 3. Stable elevation of the left hemidiaphragm. Stable cardiomegaly. Assessment and Plan - Plan 63 year old female with VDRF -Patient and family would like to proceed with tracheostomy tube placement -Will plan for OR placement on -Obtain consents -NPO after MN Wednesday night
--- NOTE | 2018-09-20 16:40 | CT ---
EXAM DATE: 09/20/2018 4:35 PM EST AGE/SEX: 63 years / Female INDICATIONS: Shortness of breath, pneumonia. CLINICAL DATA: This is the patient's initial encounter. Patient reports that signs and symptoms have been present for 1 day and indicates a pain score of Nonresponsive. MEDICAL/SURGICAL HISTORY: Chronic obstructive pulmonary disease. Congestive heart failure. Hypert ension. Afib, MRSA. None. RADIATION DOSE: 16.93 CTDI (mGy) ; Combined studies ; Patient body habitus COMPARISON: No prior exams available for comparison. TECHNIQUE: Multiple contiguous axial images were obtained through the chest during bolus infusion of 96 ml Omnipaque 350 (iohexol) nonionic water-soluble contrast as a cumulative dose for multiple exa ms. Images were obtained in suspended respiration using multiple row detector helical technique. U sing automated exposure control and adjustment of the mA and/or kV according to patient size, radiati on dose was kept as low as reasonably achievable to obtain optimal diagnostic quality images. DICOM format image data is available electronically for review and comparison. FINDINGS: An endotracheal tube is noted with distal tip at the origin of the right mainstem bronchus. Enteric t ube is noted with distal tip terminating in the gastric body. There is patchy airspace disease in the right upper lobe posteriorly as well as bilateral lower lobe consolidation most pronounced in the le ft lower lobe. There is moderate elevation of left hemidiaphragm. The osseous structures demonstrate no worrisome osseous lesions. CONCLUSION: 1. There is elevation of left hemidiaphragm with compressive atelectasis and consolidation of the le ft lower lobe. 2. Patchy right upper lobe groundglass infiltrate in right lower lobe posterior basilar consolidatio n. Electronically signed by: Oleksandr Gilbert MD Board Certified Radiologist 09/20/2018 4:39 PM EST
--- NOTE | 2018-09-20 16:42 | CT ---
EXAM DATE: 09/20/2018 4:35 PM EST AGE/SEX: 63 years / Female INDICATIONS: Abdominal pain, evaluate for abscess. CLINICAL DATA: This is the patient's initial encounter. Patient reports that signs and symptoms have been present for 1 day and indicates a pain score of Nonresponsive. MEDICAL/SURGICAL HISTORY: Congestive heart failure. Chronic obstructive pulmonary disease. Hy pertension. Atrial fibrillation. MRSA. None. ORAL CONTRAST: Prescribed oral contrast ingested. RADIATION DOSE: 16.93 CTDI (mGy) ; Combined studies ; Patient body habitus [place] [facility] [place]AST, 12/01/2017. . TECHNIQUE: Multiple contiguous axial images were obtained through the abdomen and pelvis following b olus infusion of 96 ml Omnipaque 350 (iohexol) nonionic water-soluble contrast as a cumulative dose for multiple exams. Prescribed oral contrast ingested. Using automated exposure control and adjustm ent of the mA and/or kV according to patient size, radiation dose was kept as low as reasonably achie vable to obtain optimal diagnostic quality images. DICOM format image data is available electronical ly for review and comparison. FINDINGS: There is edema and mildly organized fluid in the left lateral abdominal wall measuring approximately 5.8 x 12.6 x 11.9 cm. The liver, spleen, pancreas, adrenal glands and kidneys are within normal limits. No obstruction or i nflammatory changes of the gastrointestinal tract. No free fluid or free air within the abdomen or pe lvis. No lymphadenopathy. Reproductive organs appear normal. Chronically elevated left hemidiaphragm. There is a nasogastric tube with tip in the stomach. CONCLUSION: 1. No acute abnormality demonstrated within the abdomen or pelvis. 2. There is an area of nonspecific subcutaneous edema and induration of the left lateral flank. This could be cellulitis but is not typical of an organized abscess at this time. Electronically signed by: Festus Zamora MD Board Certified Radiologist 09/20/2018 4:41 PM EST
[2018-09-21] MEDS: Oral Hygiene Kit OROPHARYNG SCH ×4 (00:48→17:04)
[2018-09-21] MEDS: Insulin NovoLOG Aspart Correctional Sugar Inj SQ SCH ×4 (00:54→17:26)
--- NOTE | 2018-09-21 01:22 | P.PN ---
Subjective Interval history: ALERT ON VENT SUPPORT Physical Exam Vital signs: Vital Signs 09/20/18 02:00 09/20/18 03:15 09/20/18 04:00 Temperature 99 F Pulse Rate 52 L 58 L 61 Respiratory Rate 18 18 Blood Pressure 87/66 L Pulse Oximetry 96 09/20/18 04:27 09/20/18 06:00 09/20/18 07:00 Temperature Pulse Rate 59 L 67 Respiratory Rate 18 20 Blood Pressure 123/76 Pulse Oximetry 95 99 09/20/18 08:00 09/20/18 08:58 09/20/18 09:00 Temperature 98.6 F Pulse Rate 65 73 62 Respiratory Rate 19 18 19 Blood Pressure 134/80 144/67 H Pulse Oximetry 96 100 100 09/20/18 10:00 09/20/18 11:00 09/20/18 11:36 Temperature Pulse Rate 71 72 63 Respiratory Rate 23 25 H 20 Blood Pressure 128/86 118/83 Pulse Oximetry 99 94 L 100 09/20/18 12:00 09/20/18 13:00 09/20/18 14:00 Temperature 98.6 F Pulse Rate 63 76 74 Respiratory Rate 21 28 H 27 H Blood Pressure 110/69 149/86 H 132/85 Pulse Oximetry 94 L 92 L 97 09/20/18 15:00 09/20/18 15:46 09/20/18 16:00 Temperature 100.1 F H Pulse Rate 76 77 78 Respiratory Rate 25 H 20 35 H Blood Pressure 117/87 126/65 Pulse Oximetry 98 99 97 09/20/18 16:01 09/20/18 16:27 09/20/18 16:41 Temperature Pulse Rate 81 78 Respiratory Rate 28 H 22 Blood Pressure 126/65 134/63 Pulse Oximetry 95 100 96 09/20/18 17:00 09/20/18 18:00 09/20/18 19:00 Temperature Pulse Rate 78 70 73 Respiratory Rate 25 H 18 20 Blood Pressure 146/75 H 108/71 103/71 Pulse Oximetry 90 L 100 97 09/20/18 19:20 09/20/18 20:00 09/20/18 20:01 Temperature 99.9 F H Pulse Rate 69 69 Respiratory Rate 19 32 H 38 H Blood Pressure 131/74 Pulse Oximetry 100 100 09/20/18 21:00 09/20/18 22:00 09/20/18 23:46 Temperature Pulse Rate 71 76 63 Respiratory Rate 28 H 19 18 Blood Pressure 120/84 118/81 Pulse Oximetry 100 98 100 09/21/18 00:00 Temperature 99.4 F Pulse Rate 63 Respiratory Rate 24 Blood Pressure 104/67 Pulse Oximetry 100 Intake & Output 09/20/18 09/20/18 09/21/18 06:59 18:59 06:59 Intake Total 1259 / 1259 1396 / 1396 100 / 100 Output Total 325 / 325 1400 / 1400 Balance 934 / 934 -4 / -4 100 / 100 Weight 148.1 kg Intake: IV 455 / 455 531 / 531 Precedex Inj 1,000 MCG In NS 355 / 355 31 / 31 Inj 240 ML @ 0.1 MCG/KG/HR 3.51 mls/hr IV.CONT TITRATE PRN Rx# :[id number] Azactam Inj 1,000 MG In NS Inj 100 / 100 200 / 200 100 ML @ 200 mls/hr IV.SIG Q8H PABLO Rx#:[id number] Zyvox 600 mg Premix 300 ML @ 300 / 300 300 mls/hr IV.SIG Q12H PABLO Rx#: [id number] Tube Feeding 204 / 204 85 / 85 Water Bolus Amount 300 / 300 480 / 480 Free Water Amount 300 / 300 300 / 300 100 / 100 Output: Urine 1400 / 1400 Urine Amount (Catheter) 325 / 325 Straight 325 / 325 Other: Date of Last Bowel Movement 09/13/18 09/20/18 09/20/18 # Bowel Movements 0 # Incontinent Bowel Movements 3 Narrative: Alert and awake Neck: trachea palpable Abd: soft; obese - Urinary Catheter Management Straight Cath placed during this visit: yes, but has since been removed by the nurse Reason for continuing: Not indwelling catheter Insertion date: 09/20/18 Insertion time: 02:45 Removal date: 09/20/18 Removal time: 03:00 Indwelling Urethral Catheter Cath placed during this visit: yes, but has since been removed by the nurse Reason for continuing: Not indwelling catheter Removal date: 09/19/18 Removal time: 18:00 Results - Labs CBC & Chem 7: 09/20/18 08:06 09/20/18 08:06 Laboratory Results - last 24 hr 09/20/18 09/20/18 09/20/18 05:40 08:06 08:06 WBC 12.1 H RBC 3.34 L Hgb 9.8 L Hct 28.5 L MCV 85.4 MCH 29.3 MCHC 34.3 RDW 16.3 Plt Count 210 MPV 8.1 Neut % (Auto) 79.7 H Lymph % (Auto) 8.9 L [place] % (Auto) 6.7 Eos % (Auto) 4.3 H Baso % (Auto) 0.4 Neut # (Auto) 9.7 H Lymph # (Auto) 1.1 [place] # (Auto) 0.8 Eos # (Auto) 0.5 H Baso # (Auto) 0.0 WBC Differential . Differential Comment Auto diff final Sodium 144 Potassium 3.8 Chloride 109 H Carbon Dioxide 26.4 Anion Gap 9 BUN 14 Creatinine 1.06 H Estimated GFR 52 L POC Glucose 136 H Random Glucose 122 H Calcium 8.5 Magnesium 2.2 09/20/18 09/20/18 09/21/18 12:45 17:58 00:54 WBC RBC Hgb Hct MCV MCH MCHC RDW Plt Count MPV Neut % (Auto) Lymph % (Auto) [place] % (Auto) Eos % (Auto) Baso % (Auto) Neut # (Auto) Lymph # (Auto) [place] # (Auto) Eos # (Auto) Baso # (Auto) WBC Differential Differential Comment Sodium Potassium Chloride Carbon Dioxide Anion Gap BUN Creatinine Estimated GFR POC Glucose 120 H 104 90 Random Glucose Calcium Magnesium Microbiology 09/18/18 13:00 Bronchial - Right Middle Lobe Gram Stain - Final 09/18/18 13:00 Bronchial - Right Middle Lobe Bronchial Culture - Final S. aureus MRSA 09/18/18 11:10 Sputum - Endotracheal Gram Stain - Final 09/18/18 11:10 Sputum - Endotracheal Sputum Culture - Final S. aureus MRSA 09/17/18 16:00 Blood - Peripheral Aerobic Blood Culture - Preliminary No growth in 3 days 09/17/18 16:00 Blood - Peripheral Anaerobic Blood Culture - Preliminary No growth in 3 days 09/17/18 16:05 Blood - Peripheral Aerobic Blood Culture - Preliminary No growth in 3 days 09/17/18 16:05 Blood - Peripheral Anaerobic Blood Culture - Preliminary No growth in 3 days - Imaging Impressions Abdomen/Pelvis CT 09/20/18 00:00 CONCLUSION: 1. No acute abnormality demonstrated within the abdomen or pelvis. 2. There is an area of nonspecific subcutaneous edema and induration of the left lateral flank. This could be cellulitis but is not typical of an organized abscess at this time. Chest CT 09/20/18 00:00 CONCLUSION: 1. There is elevation of left hemidiaphragm with compressive atelectasis and consolidation of the left lower lobe. 2. Patchy right upper lobe groundglass infiltrate in right lower lobe posterior basilar consolidation. Assessment and Plan - Plan RESPIRATORY FAILURE COPD CHF RAD AFIB PLAN vent support bronchodilator therapy FOR TRACHEOSTOMY
[2018-09-21] MEDS: Artificial Tears Opth Drops 15 ML Bottle EACH EYE SCH ×3 (01:30→18:39)
[2018-09-21] MEDS: Chlorhexidine Gluconate 2% 1 Pack (2 Cloths) TOPICAL SCH (04:39)
--- NOTE | 2018-09-21 06:34 | P.PNCC ---
Subjective Subjective Remarks/Hospital Course: This is a 63-year-old female. Date of admission 09/14/2018. Date of consultation 09/15/2018. Past medical history includes paroxysmal atrial fibrillation currently normal sinus rhythm, elevated BMI, congestive heart failure with last documented ejection fraction 55% 2012, COPD, hypertension, left bundle branch block essential tremors. Patient originally planned to [place] on 09/14/2018 with worsening shortness of breath slowly on coming over the past couple weeks. She also noticed increasing bilateral lower extremity edema. Per documentation, patient recently saw her diesel service technician Dr. Silverman on Wednesday who asked her to drink as much fluid and juice as she possibly could and reduce her dose of Lasix from 20 mg twice a day to once a day. During current hospitalization, patient resume home medications of enalapril, furosemide, metoprolol and hydralazine. Patient seen by cardiology and pulmonology. Refusing to be from central sleep apnea. Currently on ipratropium aerosols every [address] House. Seen by Dr. Chew. Switch to sotalol 80 mg twice daily and diuresis furosemide 40 mg IV twice daily. This morning, patient was found obtunded. PH was 7.17. Retaining CO2. Transfer to ICU and intubated using 20 mg etomidate. 09/16: No acute distress on mechanical ventilation. Arousable but not following commands. Tolerating tube feeding. Decreased urine output. Will Place Coello catheter to monitor accurate I's and O's 09/17: Failed extubation yesterday after 20 minutes. Extremely anxious. Currently on low-dose dexmedetomidine drip and bradycardic. Tube feeds restarted. Urine output has increased. 09/18: Some hemoptysis overnight. Enoxaparin held. Currently on CPAP trials at 40%. Started on vancomycin and aztreonam for fevers. Arousable and follows commands 09/19: Patient failed trial of extubation again yesterday, required bronchoscopy due to bloody secretions from ETT but no active bleeding was seen. 09/20: General surgery consulted for tracheostomy, patient was agreeable when I spoke with her yesterday but her daughter was hesitant. Awaiting their decision. The patient's sputum cultures are positive for MRSA, will consult ID. The patient wrote on a piece of paper to me that she is having hallucinations from precedex. She is requesting that I discontinue this medication. 09/21: No overnight events. Patient became tachypneic and appeared anxious and distressed when I briefly attempted to switch her to spontaneous breathing trial , placed back on AC. Tentatively planned for tracheostomy tomorrow. Objective Vital Signs / I&O: Vital Signs 09/20/18 07:00 09/20/18 08:00 09/20/18 08:58 Temperature 98.6 F Pulse Rate 67 65 73 Respiratory Rate 20 19 18 Blood Pressure 123/76 134/80 Pulse Oximetry 99 96 100 09/20/18 09:00 09/20/18 10:00 09/20/18 11:00 Temperature Pulse Rate 62 71 72 Respiratory Rate 19 23 25 H Blood Pressure 144/67 H 128/86 118/83 Pulse Oximetry 100 99 94 L 09/20/18 11:36 09/20/18 12:00 09/20/18 13:00 Temperature 98.6 F Pulse Rate 63 63 76 Respiratory Rate 20 21 28 H Blood Pressure 110/69 149/86 H Pulse Oximetry 100 94 L 92 L 09/20/18 14:00 09/20/18 15:00 09/20/18 15:46 Temperature Pulse Rate 74 76 77 Respiratory Rate 27 H 25 H 20 Blood Pressure 132/85 117/87 Pulse Oximetry 97 98 99 09/20/18 16:00 09/20/18 16:01 09/20/18 16:27 Temperature 100.1 F H Pulse Rate 78 81 Respiratory Rate 35 H 28 H Blood Pressure 126/65 126/65 Pulse Oximetry 97 95 100 09/20/18 16:41 09/20/18 17:00 09/20/18 18:00 Temperature Pulse Rate 78 78 70 Respiratory Rate 22 25 H 18 Blood Pressure 134/63 146/75 H 108/71 Pulse Oximetry 96 90 L 100 09/20/18 19:00 09/20/18 19:20 09/20/18 20:00 Temperature 99.9 F H Pulse Rate 73 69 Respiratory Rate 20 19 32 H Blood Pressure 103/71 Pulse Oximetry 97 100 09/20/18 20:01 09/20/18 21:00 09/20/18 22:00 Temperature Pulse Rate 69 71 76 Respiratory Rate 38 H 28 H 19 Blood Pressure 131/74 120/84 118/81 Pulse Oximetry 100 100 98 09/20/18 23:00 09/20/18 23:46 09/21/18 00:00 Temperature 99.4 F Pulse Rate 66 63 63 Respiratory Rate 32 H 18 24 Blood Pressure 117/79 104/67 Pulse Oximetry 98 100 100 09/21/18 01:00 09/21/18 01:01 09/21/18 02:00 Temperature Pulse Rate 67 63 68 Respiratory Rate 24 23 24 Blood Pressure 118/56 L 117/71 Pulse Oximetry 97 98 99 09/21/18 03:00 09/21/18 03:39 09/21/18 03:40 Temperature Pulse Rate 66 72 Respiratory Rate 20 18 19 Blood Pressure 105/68 Pulse Oximetry 100 96 09/21/18 04:00 09/21/18 06:00 Temperature 99.8 F H Pulse Rate 66 69 Respiratory Rate 19 Blood Pressure 99/67 L Pulse Oximetry 100 Intake & Output 09/20/18 09/20/18 09/21/18 06:59 18:59 06:59 Intake Total 1259 / 1259 1396 / 1396 1420 / 1420 Output Total 325 / 325 1400 / 1400 250 / 250 Balance 934 / 934 -4 / -4 1170 / 1170 Weight 148.1 kg 148.6 kg Intake: IV 455 / 455 531 / 531 400 / 400 Precedex Inj 1,000 MCG In NS 355 / 355 31 / 31 Inj 240 ML @ 0.1 MCG/KG/HR 3.51 mls/hr IV.CONT TITRATE PRN Rx# :[id number] Azactam Inj 1,000 MG In NS Inj 100 / 100 200 / 200 100 / 100 100 ML @ 200 mls/hr IV.SIG Q8H PABLO Rx#:[id number] Zyvox 600 mg Premix 300 ML @ 300 / 300 300 / 300 300 mls/hr IV.SIG Q12H PABLO Rx#: [id number] Tube Feeding 204 / 204 85 / 85 420 / 420 Water Bolus Amount 300 / 300 480 / 480 300 / 300 Free Water Amount 300 / 300 300 / 300 300 / 300 Output: Urine 1400 / 1400 250 / 250 Urine Amount (Catheter) 325 / 325 Straight 325 / 325 Other: Date of Last Bowel Movement 09/13/18 09/20/18 09/20/18 # Bowel Movements 0 # Incontinent Bowel Movements 3 1 Result Diagrams: 09/20/18 08:06 09/20/18 08:06 Objective Remarks: GENERAL: Intubated, awake and alert SKIN: No rashes or lesions HEAD: NCAT EYES: PERRL ENT: Mucous membranes pink and moist. NECK: Trachea midline CARDIOVASCULAR: Regular rate and rhythm RESPIRATORY: Diminished breath sounds due to body habitus, secretions thick but not bloody GASTROINTESTINAL: Abdomen soft, non-tender, obese MUSCULOSKELETAL: Trace nonpitting bilateral lower extremity edema NEUROLOGICAL: RASS +1, awake and alert, nods/ shakes head appropriately to yes/ no questions Assessment and Plan - Assessment and Plan Plan: 63yF presenting with acute hypoxic respiratory failure and failed attempt at extubation x 2 Neuro/Psych: Anxiety disorder Chronic benzodiazepine use Fentanyl for light sedation, goal RASS -1 PRN ativan for breakthrough anxiety Acetaminophen allergy documented CV: Paroxysmal atrial fibrillation currently normal sinus rhythm Congestive heart failure unknown etiology. Last echocardiogram EF 50-55% Elevated HDL Followed by cardiology Sotalol 80 mg twice daily started by cardiology several days ago, hold home dose of metoprolol/ hydralazine Currently holding enalapril 20 mg daily in light of hypotension and acute kidney injury Echocardiogram: 09/06/12 - ejection fraction of 50-55% with normal wall motion Myocardial perfusion scan: 09/07/12 - slight ischemia in the LAD distribution with an ejection fraction of 60 Diurese as detailed below Resp: Acute respiratory failure with CO2 retention Obstructive sleep apnea -untreated Previous diagnosis of COPD Obesity hypoventilation syndrome Hemoptysis Last PFT showed mild restrictive lung disease. No obstructive component Followed by pulmonology Currently ipratropium aerosols every 4 hours scheduled Pharmacologic prophylaxis held due to hemoptysis, no source of bleeding noted on bronch 09/18 Tracheostomy tentatively planned for tomorrow GI: Gastroesophageal reflux disease Tube feeds- vital high-protein at 65 cc an hour, NPO at midnight for planned trach Famotidine for GI prophylaxis Docusate sodium/senna 1 tablet twice daily for bowel regimen : No indication for Coello Endo: Acute hyperglycemia Sliding scale insulin Accu-Cheks to maintain euglycemia aspart insulin every 6 hours, better controlled on medium algorithm Renal: Acute kidney injury- improving Hold lasix, give a dose of bumex this morning CHAPIS inhibitor discontinued due to KIKE, still on hold as BP is 100s-110s systolic Monitor urine output, forced diuresis today Accurate I's and O's Renal ultrasound only remarkable for incidental renal cyst; urine eosinophils, sodium and creatinine unremarkable Avoid nephrotoxic medications Heme: Leukocytosis Normocytic anemia No indication for transfusion of blood products at this time. Monitor CBC daily. Hemoptysis appears to have stopped at this point. ID: 09/[id number] sputum negative for influenza A and B No growth to date blood cultures x2 09/17 09/18 sputum culture positive for MRSA Empirically started on vancomycin and aztreonam for MRSA pneumonia, day #4 09/18 * ID consulted yesterday (Dr. Archuleta), vanco discontinued and patient was started on Zyvox. D/C aztreonam? Will defer to ID * Tmax 100.1F FEN: Hypernatremia Replace electrolytes as clinically indicated per ICU electrolyte protocol Continue free water flushes MSK: Elevated BMI Chronic low back pain Weight loss encouraged PT evaluate and treat Access -Utilize peripheral IV Prophylaxis -GI -famotidine -DVT -SCD/enoxaparin currently on hold due to hemoptysis and planned procedures. Can hopefully be restarted tomorrow after tracheostomy. OVERALL: This patient remains critically ill but stable. She requires continued ICU level of care. Level 2 follow up To help prompt me to consider important information that might be impacting today's encounter and assessment, information from prior notes written by myself or my colleagues may have been "brought forward" into today's note. My signature on this note, however, is an attestation that I personally performed the exam, history, and/or decision-making noted today, and, unless otherwise indicated, the interactions with patient, family, and staff as well as the review of records all occurred today. I also attest that the listed assessment and stated plan reflect my best clinical judgment today based on the combination of historical information, prior notes, and today's exam/ interactions. Code Status: Full
--- NOTE | 2018-09-21 07:16 | P.PNFP ---
Subjective Interval history: Pt was seen and examined this morning with her nurse at bedside. She communicates in writing and states that she feels somewhat better this morning. She had questions about her CT abdomen/pelvis that was done yesterday. She also complained of pain in her left ear and wanted me to examine the inside of her mouth because she believes that the skin is peeling off. She also wanted to know why she had pneumonia despite having had the pneumonia vaccine. Her questions were answered in detail. <Eko R3,Soha U - 09/21/18 08:29> Results - Labs Result diagrams: 09/21/18 06:29 09/21/18 06:29 <Ray Fraire - 09/21/18 16:52> Abnormal lab results 09/21/18 09/21/18 Range/Units 06:29 06:29 WBC 11.1 H (4.0-11.0) th/mm3 RBC 2.95 L (4.00-5.30) mil/mm3 Hgb 8.1 L (11.6-15.3) gm/dL Hct 25.1 L (35.0-46.0) % Neut % (Auto) 73.4 H (16.0-70.0) % [place] % (Auto) 9.6 H (0.0-8.0) % Eos % (Auto) 5.3 H (0.0-4.0) % Neut # (Auto) 8.1 H (1.8-7.7) th/mm3 [place] # (Auto) 1.1 H (0.0-0.9) th/mm3 Eos # (Auto) 0.6 H (0.0-0.4) th/mm3 Potassium 3.3 L (3.5-5.1) meq/L Creatinine 1.05 H (0.50-1.00) mg/dL Estimated GFR 53 L (>89) mL/min Calcium 8.1 L (8.5-10.1) mg/dL Short CBC 09/21/18 Range/Units 06:29 WBC 11.1 H (4.0-11.0) th/mm3 Hgb 8.1 L (11.6-15.3) gm/dL Hct 25.1 L (35.0-46.0) % Plt Count 253 (150-450) th/mm3 BMP 09/21/18 06:29 Sodium 141 Potassium 3.3 L Chloride 106 Carbon Dioxide 25.3 BUN 16 Creatinine 1.05 H Calcium 8.1 L <Ray Fraire - 09/21/18 16:52> Abnormal lab results 09/20/18 09/20/18 09/20/18 Range/Units 08:06 08:06 12:45 WBC 12.1 H (4.0-11.0) th/mm3 RBC 3.34 L (4.00-5.30) mil/mm3 Hgb 9.8 L (11.6-15.3) gm/dL Hct 28.5 L (35.0-46.0) % Neut % (Auto) 79.7 H (16.0-70.0) % Lymph % (Auto) 8.9 L (9.0-44.0) % Eos % (Auto) 4.3 H (0.0-4.0) % Neut # (Auto) 9.7 H (1.8-7.7) th/mm3 Eos # (Auto) 0.5 H (0.0-0.4) th/mm3 Chloride 109 H (98-107) meq/L Creatinine 1.06 H (0.50-1.00) mg/dL Estimated GFR 52 L (>89) mL/min POC Glucose 120 H (68-110) mg/dl Random Glucose 122 H (74-106) mg/dL Short CBC 09/20/18 Range/Units 08:06 WBC 12.1 H (4.0-11.0) th/mm3 Hgb 9.8 L (11.6-15.3) gm/dL Hct 28.5 L (35.0-46.0) % Plt Count 210 (150-450) th/mm3 [facility] 09/20/18 08:06 Sodium 144 Potassium 3.8 Chloride 109 H Carbon Dioxide 26.4 BUN 14 Creatinine 1.06 H Calcium 8.5 <Eko R3,Soha U - 09/21/18 07:15> - Imaging Impressions Abdomen/Pelvis CT 09/20/18 00:00 CONCLUSION: 1. No acute abnormality demonstrated within the abdomen or pelvis. 2. There is an area of nonspecific subcutaneous edema and induration of the left lateral flank. This could be cellulitis but is not typical of an organized abscess at this time. Chest CT 09/20/18 00:00 CONCLUSION: 1. There is elevation of left hemidiaphragm with compressive atelectasis and consolidation of the left lower lobe. 2. Patchy right upper lobe groundglass infiltrate in right lower lobe posterior basilar consolidation. <Eko R3,Soha U - 09/21/18 07:15> Physical Exam Vital signs: Vital Signs 09/20/18 17:00 09/20/18 18:00 09/20/18 19:00 Temperature Pulse Rate 78 70 73 Respiratory Rate 25 H 18 20 Blood Pressure 146/75 H 108/71 103/71 Pulse Oximetry 90 L 100 97 09/20/18 19:20 09/20/18 20:00 09/20/18 20:01 Temperature 99.9 F H Pulse Rate 69 69 Respiratory Rate 19 32 H 38 H Blood Pressure 131/74 Pulse Oximetry 100 100 09/20/18 21:00 09/20/18 22:00 09/20/18 23:00 Temperature Pulse Rate 71 76 66 Respiratory Rate 28 H 19 32 H Blood Pressure 120/84 118/81 117/79 Pulse Oximetry 100 98 98 09/20/18 23:46 09/21/18 00:00 09/21/18 01:00 Temperature 99.4 F Pulse Rate 63 63 67 Respiratory Rate 18 24 24 Blood Pressure 104/67 Pulse Oximetry 100 100 97 09/21/18 01:01 09/21/18 02:00 09/21/18 03:00 Temperature Pulse Rate 63 68 66 Respiratory Rate 23 24 20 Blood Pressure 118/56 L 117/71 105/68 Pulse Oximetry 98 99 100 09/21/18 03:39 09/21/18 03:40 09/21/18 04:00 Temperature 99.8 F H Pulse Rate 72 66 Respiratory Rate 18 19 19 Blood Pressure 99/67 L Pulse Oximetry 96 100 09/21/18 06:00 09/21/18 07:00 09/21/18 08:00 Temperature 98.6 F Pulse Rate 69 72 70 Respiratory Rate 24 20 Blood Pressure 104/68 103/59 L Pulse Oximetry 96 93 L 09/21/18 09:00 09/21/18 10:00 09/21/18 11:00 Temperature Pulse Rate 70 67 66 Respiratory Rate 20 21 20 Blood Pressure 104/55 L 107/63 103/55 L Pulse Oximetry 95 98 100 09/21/18 12:00 09/21/18 12:45 09/21/18 13:00 Temperature 98.9 F Pulse Rate 63 102 H Respiratory Rate 22 26 H 31 H Blood Pressure 104/57 L 163/74 H Pulse Oximetry 99 98 85 L 09/21/18 14:00 09/21/18 15:00 09/21/18 15:58 Temperature Pulse Rate 64 65 Respiratory Rate 18 20 Blood Pressure Pulse Oximetry 96 Intake & Output 09/20/18 09/21/18 09/21/18 18:59 06:59 18:59 Intake Total 1396 / 1396 1420 / 1420 600 / 600 Output Total 1400 / 1400 250 / 250 Balance -4 / -4 1170 / 1170 600 / 600 Weight 148.6 kg Intake: IV 531 / 531 400 / 400 400 / 400 Precedex Inj 1,000 MCG In NS Inj 240 ML @ 0.1 MCG/KG/HR 3.51 mls/hr IV.CONT TITRATE PRN Rx# :[id number] Azactam Inj 1,000 MG In NS Inj 200 / 200 100 / 100 100 / 100 100 ML @ 200 mls/hr IV.SIG Q8H PABLO Rx#:[id number] Zyvox 600 mg Premix 300 ML @ 300 / 300 300 / 300 300 / 300 300 mls/hr IV.SIG Q12H PABLO Rx#: [id number] Tube Feeding 85 / 85 420 / 420 Water Bolus Amount 480 / 480 300 / 300 Free Water Amount 300 / 300 300 / 300 200 / 200 Output: Urine 1400 / 1400 250 / 250 Other: Date of Last Bowel Movement 09/20/18 09/20/18 09/21/18 # Incontinent Bowel Movements 3 1 <Ray Fraire - 09/21/18 16:52> Vital Signs 09/20/18 08:00 09/20/18 08:58 09/20/18 09:00 Temperature 98.6 F Pulse Rate 65 73 62 Respiratory Rate 19 18 19 Blood Pressure 134/80 144/67 H Pulse Oximetry 96 100 100 09/20/18 10:00 09/20/18 11:00 09/20/18 11:36 Temperature Pulse Rate 71 72 63 Respiratory Rate 23 25 H 20 Blood Pressure 128/86 118/83 Pulse Oximetry 99 94 L 100 09/20/18 12:00 09/20/18 13:00 09/20/18 14:00 Temperature 98.6 F Pulse Rate 63 76 74 Respiratory Rate 21 28 H 27 H Blood Pressure 110/69 149/86 H 132/85 Pulse Oximetry 94 L 92 L 97 09/20/18 15:00 09/20/18 15:46 09/20/18 16:00 Temperature 100.1 F H Pulse Rate 76 77 78 Respiratory Rate 25 H 20 35 H Blood Pressure 117/87 126/65 Pulse Oximetry 98 99 97 09/20/18 16:01 09/20/18 16:27 09/20/18 16:41 Temperature Pulse Rate 81 78 Respiratory Rate 28 H 22 Blood Pressure 126/65 134/63 Pulse Oximetry 95 100 96 09/20/18 17:00 09/20/18 18:00 09/20/18 19:00 Temperature Pulse Rate 78 70 73 Respiratory Rate 25 H 18 20 Blood Pressure 146/75 H 108/71 103/71 Pulse Oximetry 90 L 100 97 09/20/18 19:20 09/20/18 20:00 09/20/18 20:01 Temperature 99.9 F H Pulse Rate 69 69 Respiratory Rate 19 32 H 38 H Blood Pressure 131/74 Pulse Oximetry 100 100 09/20/18 21:00 09/20/18 22:00 09/20/18 23:00 Temperature Pulse Rate 71 76 66 Respiratory Rate 28 H 19 32 H Blood Pressure 120/84 118/81 117/79 Pulse Oximetry 100 98 98 09/20/18 23:46 09/21/18 00:00 09/21/18 01:00 Temperature 99.4 F Pulse Rate 63 63 67 Respiratory Rate 18 24 24 Blood Pressure 104/67 Pulse Oximetry 100 100 97 09/21/18 01:01 09/21/18 02:00 09/21/18 03:00 Temperature Pulse Rate 63 68 66 Respiratory Rate 23 24 20 Blood Pressure 118/56 L 117/71 105/68 Pulse Oximetry 98 99 100 09/21/18 03:39 09/21/18 03:40 09/21/18 04:00 Temperature 99.8 F H Pulse Rate 72 66 Respiratory Rate 18 19 19 Blood Pressure 99/67 L Pulse Oximetry 96 100 09/21/18 06:00 Temperature Pulse Rate 69 Respiratory Rate Blood Pressure Pulse Oximetry Intake & Output 09/20/18 09/21/18 09/21/18 18:59 06:59 18:59 Intake Total 1396 / 1396 1420 / 1420 Output Total 1400 / 1400 250 / 250 Balance -4 / -4 1170 / 1170 Weight 148.6 kg Intake: IV 531 / 531 400 / 400 Precedex Inj 1,000 MCG In NS 31 / 31 Inj 240 ML @ 0.1 MCG/KG/HR 3.51 mls/hr IV.CONT TITRATE PRN Rx# :[id number] Azactam Inj 1,000 MG In NS Inj 200 / 200 100 / 100 100 ML @ 200 mls/hr IV.SIG Q8H PABLO Rx#:[id number] Zyvox 600 mg Premix 300 ML @ 300 / 300 300 / 300 300 mls/hr IV.SIG Q12H PABLO Rx#: [id number] Tube Feeding 85 / 85 420 / 420 Water Bolus Amount 480 / 480 300 / 300 Free Water Amount 300 / 300 300 / 300 Output: Urine 1400 / 1400 250 / 250 Other: Date of Last Bowel Movement 09/20/18 09/20/18 # Incontinent Bowel Movements 3 1 <Eko R3,Soha U - 09/21/18 07:15> Narrative: Narrative: GENERAL: Intubated. Awake, alert. Following commands, writing on paper. SKIN: Warm and dry. HEENT: Atraumatic. Normocephalic. Pupils equal and round. EOMI. No scleral icterus. No injection or drainage. MM are moist, no skin peeling noted although very mild bruising on her lower lip. Bilateral external ear canal and tympanic membranes clear of erythema or lesions, no bulging, clear landmarks CARDIOVASCULAR: Regular rate and rhythm. No murmur appreciated. RESPIRATORY: CTAB, no increased work of breathing. Good air movement GASTROINTESTINAL: Abdomen soft, nondistended. Bowel sounds are present but hypoactive EXTREMITIES: Early venous stasis changes noted bilaterally. Bilateral 2+ pitting pre-tibial edema <Eko R3,[facility] - 09/21/18 08:43> - Urinary Catheter Management Indwelling Urethral Catheter Cath placed during this visit: no <Ray Fraire - 09/21/18 16:52> yes, but has since been removed by the nurse <Eko R3,[facility] - 09/21/18 08:43> Reason for continuing: Not indwelling catheter <Eko R3Soha U - 09/21/18 07 :15> Removal date: 09/19/18 <Eko R3,Soha U - 09/21/18 07:15> Removal time: 18:00 <Eko R3,Soha U - 09/21/18 07:15> Straight Cath placed during this visit: no <Ray Fraire - 09/21/18 16:52> yes, but has since been removed by the nurse <Eko R3Soha U - 09/21/18 08:43> Reason for continuing: Not indwelling catheter <Eko R3Soha - 09/21/18 07 :15> Insertion date: 09/20/18 <Eko R3Soha U - 09/21/18 07:15> Insertion time: 02:45 <Eko R3,Soha Luna - 09/21/18 07:15> Removal date: 09/20/18 <Eko R3,Soha U 09/21/18 07:15> Removal time: 03:00 <Eko R3,Soha U - 09/21/18 07:15> Assessment and Plan - Assessment (1) Acute respiratory failure Code(s): J96.00 - Acute respiratory failure, unspecified whether with hypoxia or hypercapnia Status: Acute (2) MRSA pneumonia Code(s): J15.212 - Pneumonia due to Methicillin resistant Staphylococcus aureus Status: Acute (3) RAD (obstructive sleep apnea) Code(s): G47.33 - Obstructive sleep apnea (adult) (pediatric) Status: Acute (4) CHF exacerbation Code(s): I50.9 - Heart failure, unspecified Status: Acute (5) Hypertension Code(s): I10 - Essential (primary) hypertension Status: Acute (6) COPD (chronic obstructive pulmonary disease) Code(s): J44.9 - Chronic obstructive pulmonary disease, unspecified Status: Acute (7) GERD (gastroesophageal reflux disease) Code(s): K21.9 - Gastro-esophageal reflux disease without esophagitis Status: Acute (8) Afib Code(s): I48.91 - Unspecified atrial fibrillation Status: Acute (9) Anxiety Code(s): F41.9 - Anxiety disorder, unspecified Status: Acute (10) Tremors of nervous system Code(s): R25.1 - Tremor, unspecified Status: Acute (11) Chronic back pain Code(s): M54.9 - Dorsalgia, unspecified; G89.29 - Other chronic pain Status: Acute (12) Anemia Code(s): D64.9 - Anemia, unspecified Status: Acute (13) KIKE (acute kidney injury) Code(s): N17.9 - Acute kidney failure, unspecified Status: Acute <PrevatteRay - 09/21/18 16:52> (1) Acute respiratory failure Code(s): J96.00 - Acute respiratory failure, unspecified whether with hypoxia or hypercapnia Status: Acute (2) MRSA pneumonia Code(s): J15.212 - Pneumonia due to Methicillin resistant Staphylococcus aureus Status: Acute (3) RAD (obstructive sleep apnea) Code(s): G47.33 - Obstructive sleep apnea (adult) (pediatric) Status: Acute (4) CHF exacerbation Code(s): I50.9 - Heart failure, unspecified Status: Acute (5) Hypertension Code(s): I10 - Essential (primary) hypertension Status: Acute (6) COPD (chronic obstructive pulmonary disease) Code(s): J44.9 - Chronic obstructive pulmonary disease, unspecified Status: Acute (7) GERD (gastroesophageal reflux disease) Code(s): K21.9 - Gastro-esophageal reflux disease without esophagitis Status: Acute (8) Afib Code(s): I48.91 - Unspecified atrial fibrillation Status: Acute (9) Anxiety Code(s): F41.9 - Anxiety disorder, unspecified Status: Acute (10) Tremors of nervous system Code(s): R25.1 - Tremor, unspecified Status: Acute (11) Chronic back pain Code(s): M54.9 - Dorsalgia, unspecified; G89.29 - Other chronic pain Status: Acute (12) Anemia Code(s): D64.9 - Anemia, unspecified Status: Acute (13) KIKE (acute kidney injury) Code(s): N17.9 - Acute kidney failure, unspecified Status: Acute <Eko R3Soha U - 09/21/18 08:32> - Assessment and Plan 63-year-old female presented with shortness of breath presumed to be due to CHFpEF but likely related to her chronic obstructive sleep apnea. The patient was noted to be obtunded 09/15 with acute respiratory failure and marked CO2 retention requiring emergent intubation with mechanical ventilation. On 09/18, bronchoscopy was performed with removal of copious amounts of mucus mixed with bright red blood from both bronchi. She was also started on vancomycin and aztreonam due to fevers. Bronchial washings and sputum grew MRSA - ID consulted on 09/20/2018 - switched to Linezolid and aztreonam. Acute hypercarbic respiratory failure -s/p emergent intubation 09/15 AM, still intubated - failed CPAP trials x2 -Bronchoscopy with washings performed on 09-18 * Cultures positive for MRSA -Critical care on board -Continue mechanical ventilation -On Fentanyl for light sedation MRSA Pneumonia -Bronchial washings and sputum grew MRSA -TMax of 100.1 in the past 24 hours -Blood cultures no growth x 1 day -Patient on vancomycin and aztreonam started on 09/18 -ID on board * Discontinue Vancomycin (concern for drug fever) and switch to Linezolid (on ) due to pt still having fevers on Vancomycin Obstructive sleep apnea with obesity hypoventilation syndrome -Plan as above -Patient has been refusing CPAP/BiPAP and had reported on day of admission extreme claustrophobia and anxiety when previously trying these therapies -Pulmonology on board. Patient known to Dr. House -Patient agrees to a tracheostomy * General surgery arranging for the OR on 09/22 * NPO except meds at midnight Acute Kidney Injury - Improved - Continue Furosemide - Coello catheter placed for I/Os - Strict Is and Os - Avoid nephrotoxic medications CHF -Presumed exacerbation of CHF on admission, diastolic dysfunction -However, symptoms are more related to the patient's chronic and untreated RAD -Monitor strict I/O's -Continue Furosemide -Continue home sotalol if BP can tolerate Hypertension -Monitor vital signs -Hold home BP medications given low borderline blood pressure with sedation COPD -The patient carries a diagnosis of COPD per chart review -Possible heavy secondhand smoke exposure or symptoms all stemming from RAD -Spiriva nebulizer 0.5 mg q4h scheduled - patient reports allergy to albuterol Anemia -Patient has chronic anemia -Currently stable, continue to monitor CBC daily Anxiety -Continue home lorazepam 1 mg p.o. twice daily prn GERD -On Famotidine for ppx Chronic back pain/arthritis -Allergic to multiple medications including ibuprofen and Tylenol, not on any pain medications at home -Consider alternative therapies if needed -PT evaluate and treat while in the hospital once patient is extubated Left earache -No signs of infection or inflammation on exam -Pt's nurse will discuss with manager licensing about ear drops FEN/ppx F: Free water flushes E: On ICU electrolyte protocol N: Tube feeds with Jevity 1.5 kcal, vital high-protein at 65 cc an hour -DVT ppx: Lovenox held due to hemoptysis, SCDs in place -GI ppx: Famotidine, Senna/Docusate <Eko R3Soha U - 09/21/18 08:43> Discharge Planning: Pending clinical improvement <Eko R3Soha U - 09/21/18 07:15> - Attending Attestation The exam, history, and the medical decision-making described in the above note were completed with the assistance of the resident physician. I reviewed and agree with the findings presented. I attest that I had a [id number] encounter with the patient on the same day, and personally performed and documented my assessment and findings in the medical record. The patient is alert and responsive. Communicates by writing on note pad. Multiple questions regarding trach procedure were answered in detail. <Ray Fraire - 09/21/18 16:52>
[2018-09-21 07:45] LABS: Baso % (Auto) 0.4 % (0.0-2.0); Eos # (Auto) 0.6 th/mm3 (0.0-0.4); Eos % (Auto) 5.3 % (0.0-4.0); Hematocrit 25.1 % (35.0-46.0); Hemoglobin 8.1 gm/dL (11.6-15.3); Lymph # (Auto) 1.3 th/mm3 (1.0-4.8); Lymph % (Auto) 11.3 % (9.0-44.0); Mean Corpuscular HGB Conc 32.2 % (32.0-36.0); Mean Corpuscular Hemoglobin 27.4 pg (27.0-34.0); Mean Platelet Volume 8.5 fL (7.0-11.0); Mono # (Auto) 1.1 th/mm3 (0.0-0.9); Mono % (Auto) 9.6 % (0.0-8.0); Neut # (Auto) 8.1 th/mm3 (1.8-7.7); Neut % (Auto) 73.4 % (16.0-70.0); Platelet Count 253 th/mm3 (150-450); Red Blood Count 2.95 mil/mm3 (4.00-5.30); Red Cell Distribution Width 15.8 % (11.6-17.2); White Blood Count 11.1 th/mm3 (4.0-11.0)
[2018-09-21 08:08] LABS: Calcium 8.1 mg/dL (8.5-10.1); Carbon Dioxide 25.3 meq/L (21.0-32.0); Magnesium 2.2 mg/dL (1.5-2.5); Potassium 3.3 meq/L (3.5-5.1)
[2018-09-21] MEDS: Famotidine PF Inj 20 MG/2 ML Vial IV.PUSH SCH ×2 (09:32→21:49)
[2018-09-21] MEDS: Chlorhexidine 0.12% Oral Kit 15 ML UDC OROPHARYNG SCH ×2 (09:32→21:51)
[2018-09-21] MEDS: Simethicone 125 MG Chew Tablet PO SCH (09:34)
[2018-09-21] MEDS: Senna/Docusate Sodium 8.6/50 MG Tablet PO SCH ×2 (09:34→21:52)
[2018-09-21] MEDS: Mupirocin 2% Nasal Oint Topical Syringe EACH NARE SCH ×2 (09:42→21:50)
[2018-09-21] MEDS ORDERED: Pharmacy Ordered Lab Info OTHER ONE (12:45)
--- NOTE | 2018-09-21 14:34 | P.PNGS ---
Subjective Interval history: Resting in bed Using pen and paper to ask questions Daughter at bedside Physical Exam Vital signs: Vital Signs 09/20/18 15:00 09/20/18 15:46 09/20/18 16:00 Temperature 100.1 F H Pulse Rate 76 77 78 Respiratory Rate 25 H 20 35 H Blood Pressure 117/87 126/65 Pulse Oximetry 98 99 97 09/20/18 16:01 09/20/18 16:27 09/20/18 16:41 Temperature Pulse Rate 81 78 Respiratory Rate 28 H 22 Blood Pressure 126/65 134/63 Pulse Oximetry 95 100 96 09/20/18 17:00 09/20/18 18:00 09/20/18 19:00 Temperature Pulse Rate 78 70 73 Respiratory Rate 25 H 18 20 Blood Pressure 146/75 H 108/71 103/71 Pulse Oximetry 90 L 100 97 09/20/18 19:20 09/20/18 20:00 09/20/18 20:01 Temperature 99.9 F H Pulse Rate 69 69 Respiratory Rate 19 32 H 38 H Blood Pressure 131/74 Pulse Oximetry 100 100 09/20/18 21:00 09/20/18 22:00 09/20/18 23:00 Temperature Pulse Rate 71 76 66 Respiratory Rate 28 H 19 32 H Blood Pressure 120/84 118/81 117/79 Pulse Oximetry 100 98 98 09/20/18 23:46 09/21/18 00:00 09/21/18 01:00 Temperature 99.4 F Pulse Rate 63 63 67 Respiratory Rate 18 24 24 Blood Pressure 104/67 Pulse Oximetry 100 100 97 09/21/18 01:01 09/21/18 02:00 09/21/18 03:00 Temperature Pulse Rate 63 68 66 Respiratory Rate 23 24 20 Blood Pressure 118/56 L 117/71 105/68 Pulse Oximetry 98 99 100 09/21/18 03:39 09/21/18 03:40 09/21/18 04:00 Temperature 99.8 F H Pulse Rate 72 66 Respiratory Rate 18 19 19 Blood Pressure 99/67 L Pulse Oximetry 96 100 09/21/18 06:00 09/21/18 07:00 09/21/18 08:00 Temperature 98.6 F Pulse Rate 69 72 70 Respiratory Rate 24 20 Blood Pressure 104/68 103/59 L Pulse Oximetry 96 93 L 09/21/18 09:00 09/21/18 10:00 09/21/18 11:00 Temperature Pulse Rate 70 67 66 Respiratory Rate 20 21 20 Blood Pressure 104/55 L 107/63 103/55 L Pulse Oximetry 95 98 100 09/21/18 12:00 09/21/18 12:45 09/21/18 13:00 Temperature 98.9 F Pulse Rate 63 102 H Respiratory Rate 22 26 H 31 H Blood Pressure 104/57 L 163/74 H Pulse Oximetry 99 98 85 L Intake & Output 09/20/18 09/21/18 09/21/18 18:59 06:59 18:59 Intake Total 1396 / 1396 1420 / 1420 300 / 300 Output Total 1400 / 1400 250 / 250 Balance -4 / -4 1170 / 1170 300 / 300 Weight 148.6 kg Intake: IV 531 / 531 400 / 400 100 / 100 Precedex Inj 1,000 MCG In NS Inj 240 ML @ 0.1 MCG/KG/HR 3.51 mls/hr IV.CONT TITRATE PRN Rx# :[id number] Azactam Inj 1,000 MG In NS Inj 200 / 200 100 / 100 100 / 100 100 ML @ 200 mls/hr IV.SIG Q8H PABLO Rx#:[id number] Zyvox 600 mg Premix 300 ML @ 300 / 300 300 / 300 300 mls/hr IV.SIG Q12H PABLO Rx#: [id number] Tube Feeding 85 / 85 420 / 420 Water Bolus Amount 480 / 480 300 / 300 Free Water Amount 300 / 300 300 / 300 200 / 200 Output: Urine 1400 / 1400 250 / 250 Other: Date of Last Bowel Movement 09/20/18 09/20/18 09/21/18 # Incontinent Bowel Movements 3 1 Narrative: Alert and awake Trachea: palpable Abd: soft - Urinary Catheter Management Straight Cath placed during this visit: yes, but has since been removed by the nurse Reason for continuing: Not indwelling catheter Insertion date: 09/20/18 Insertion time: 02:45 Removal date: 09/20/18 Removal time: 03:00 Indwelling Urethral Catheter Cath placed during this visit: yes, but has since been removed by the nurse Reason for continuing: Not indwelling catheter Removal date: 09/19/18 Removal time: 18:00 Results - Labs 09/21/18 06:29 09/21/18 06:29 Laboratory Results - last 24 hr 09/20/18 09/21/18 09/21/18 17:58 00:54 05:45 WBC RBC Hgb Hct MCV MCH MCHC RDW Plt Count MPV Neut % (Auto) Lymph % (Auto) [place] % (Auto) Eos % (Auto) Baso % (Auto) Neut # (Auto) Lymph # (Auto) [place] # (Auto) Eos # (Auto) Baso # (Auto) WBC Differential Differential Comment Sodium Potassium Chloride Carbon Dioxide Anion Gap BUN Creatinine Estimated GFR POC Glucose 104 90 105 Random Glucose Calcium Magnesium 09/21/18 09/21/18 09/21/18 06:29 06:29 12:00 WBC 11.1 H RBC 2.95 L Hgb 8.1 L Hct 25.1 L MCV 85.0 MCH 27.4 MCHC 32.2 RDW 15.8 Plt Count 253 MPV 8.5 Neut % (Auto) 73.4 H Lymph % (Auto) 11.3 [place] % (Auto) 9.6 H Eos % (Auto) 5.3 H Baso % (Auto) 0.4 Neut # (Auto) 8.1 H Lymph # (Auto) 1.3 [place] # (Auto) 1.1 H Eos # (Auto) 0.6 H Baso # (Auto) 0.0 WBC Differential . Differential Comment Auto diff final Sodium 141 Potassium 3.3 L Chloride 106 Carbon Dioxide 25.3 Anion Gap 10 BUN 16 Creatinine 1.05 H Estimated GFR 53 L POC Glucose 102 Random Glucose 103 Calcium 8.1 L Magnesium 2.2 - Imaging Imaging: ITS Impressions Abdomen/Bladder Ultrasound 09/16/18 08:29 CONCLUSION: 1. Negative renal sonogram other than right renal cyst. Chest X-Ray 09/19/18 06:00 CONCLUSION: 1. Bibasilar airspace disease with some improving aeration in the right base. 2. Stable position of life-support tubes. 3. Stable elevation of the left hemidiaphragm. Stable cardiomegaly. Abdomen/Pelvis CT 09/20/18 00:00 CONCLUSION: 1. No acute abnormality demonstrated within the abdomen or pelvis. 2. There is an area of nonspecific subcutaneous edema and induration of the left lateral flank. This could be cellulitis but is not typical of an organized abscess at this time. Chest CT 09/20/18 00:00 CONCLUSION: 1. There is elevation of left hemidiaphragm with compressive atelectasis and consolidation of the left lower lobe. 2. Patchy right upper lobe groundglass infiltrate in right lower lobe posterior basilar consolidation. Assessment and Plan - Plan 63 year old female with VDRF -Patient and family would like to proceed with tracheostomy tube placement -Plan for placement tomorrow in OR -NPO after MN -Hold anticoagulation -Consents on chart
--- NOTE | 2018-09-21 14:38 | P.DIET ---
Nutritional Evaluation Type of nutrition evaluation: follow-up Nutrition consult regarding: Tube Feeding Screening comments: 09/15/18 TF review Subjective Subjective Comments: 09/15/18 Assessment here uses guidelines for critically ill patients from [facility] and [facility]. Per family medicine H&P pt had gained 45lb in 3-4months even though she had not been eating as much as usual. Objective - Diagnosis CHF exacerbation - Objective % IBW: 218 (IBW = 142lb) Body Weight Used for Calculations: IBW Energy Needs - Lower Range (kCal/kg): 25 Energy Needs - Upper Range (kCal/kg): 30 Lower Limit kCal/kg (kCals): 1,613 Upper Limit kCal/kg (kCals): 1,935 Lower Limit Protein Factor (Grams per Kg): 1.2 Upper Limit Protein Factor (Grams per Kg): 1.4 Lower Protein Needs (Protein): 77 Upper Protein Needs (Protein): 90 Dietitian Reviewed in Medical Record: Curent medications, Intake & Output, Labs , Medical history, Tube feeding Diet Order: NPO, TF'ing Objective Comments: PMH: Afib, CHF, HTN Meds: insulin Labs: estGFR 53, Cr 1.05 LBM 09/20/18 Assessment Assessment: Pt extubated, now awake, CPAP mech vent. Pt continues on TF'ing of Vital High Protein @ 65mL/hr as goal rate, running at 50mL/hr. Per MD note and RN pt will be planned for tracheostomy for tomorrow, pt will be NPO at midnight. When resuming TF, RD to recommend Jevity 1.5 @ 55mL/hr to provide 1980kcal, 84g of protein, and 1003mL of free water to best meet pts updated needs. Spoke w/ RN pts TF status, per RN pt is tolerating. Continue to monitor TF tolerance. Labs reviewed, dietitian following. Recommendations: 1. When resuming TF, RD to recommend Jevity 1.5 @ 55mL/hr to best meet pts updated needs 2. Continue to monitor TF tolerance 3. Dietitian following Dietitian to Monitor: Lab values, Glucose level, Intake & Output, Tube feeding tolerance, Weight change, Medical course
--- NOTE | 2018-09-21 15:46 | P.PN ---
Subjective Interval history: ALERT ON VENT Physical Exam Vital signs: Vital Signs 09/20/18 16:00 09/20/18 16:01 09/20/18 16:27 Temperature 100.1 F H Pulse Rate 78 81 Respiratory Rate 35 H 28 H Blood Pressure 126/65 126/65 Pulse Oximetry 97 95 100 09/20/18 16:41 09/20/18 17:00 09/20/18 18:00 Temperature Pulse Rate 78 78 70 Respiratory Rate 22 25 H 18 Blood Pressure 134/63 146/75 H 108/71 Pulse Oximetry 96 90 L 100 09/20/18 19:00 09/20/18 19:20 09/20/18 20:00 Temperature 99.9 F H Pulse Rate 73 69 Respiratory Rate 20 19 32 H Blood Pressure 103/71 Pulse Oximetry 97 100 09/20/18 20:01 09/20/18 21:00 09/20/18 22:00 Temperature Pulse Rate 69 71 76 Respiratory Rate 38 H 28 H 19 Blood Pressure 131/74 120/84 118/81 Pulse Oximetry 100 100 98 09/20/18 23:00 09/20/18 23:46 09/21/18 00:00 Temperature 99.4 F Pulse Rate 66 63 63 Respiratory Rate 32 H 18 24 Blood Pressure 117/79 104/67 Pulse Oximetry 98 100 100 09/21/18 01:00 09/21/18 01:01 09/21/18 02:00 Temperature Pulse Rate 67 63 68 Respiratory Rate 24 23 24 Blood Pressure 118/56 L 117/71 Pulse Oximetry 97 98 99 09/21/18 03:00 09/21/18 03:39 09/21/18 03:40 Temperature Pulse Rate 66 72 Respiratory Rate 20 18 19 Blood Pressure 105/68 Pulse Oximetry 100 96 09/21/18 04:00 09/21/18 06:00 09/21/18 07:00 Temperature 99.8 F H Pulse Rate 66 69 72 Respiratory Rate 19 24 Blood Pressure 99/67 L 104/68 Pulse Oximetry 100 96 09/21/18 08:00 09/21/18 09:00 09/21/18 10:00 Temperature 98.6 F Pulse Rate 70 70 67 Respiratory Rate 20 20 21 Blood Pressure 103/59 L 104/55 L 107/63 Pulse Oximetry 93 L 95 98 09/21/18 11:00 09/21/18 12:00 09/21/18 12:45 Temperature 98.9 F Pulse Rate 66 63 Respiratory Rate 20 22 26 H Blood Pressure 103/55 L 104/57 L Pulse Oximetry 100 99 98 09/21/18 13:00 09/21/18 14:00 Temperature Pulse Rate 102 H 64 Respiratory Rate 31 H Blood Pressure 163/74 H Pulse Oximetry 85 L Intake & Output 09/20/18 09/21/18 09/21/18 18:59 06:59 18:59 Intake Total 1396 / 1396 1420 / 1420 600 / 600 Output Total 1400 / 1400 250 / 250 Balance -4 / -4 1170 / 1170 600 / 600 Weight 148.6 kg Intake: IV 531 / 531 400 / 400 400 / 400 Precedex Inj 1,000 MCG In NS Inj 240 ML @ 0.1 MCG/KG/HR 3.51 mls/hr IV.CONT TITRATE PRN Rx# :[id number] Azactam Inj 1,000 MG In NS Inj 200 / 200 100 / 100 100 / 100 100 ML @ 200 mls/hr IV.SIG Q8H [facility] Rx#:[id number] Zyvox 600 mg Premix 300 ML @ 300 / 300 300 / 300 300 / 300 300 mls/hr IV.SIG Q12H [facility] Rx#: [id number] Tube Feeding 85 / 85 420 / 420 Water Bolus Amount 480 / 480 300 / 300 Free Water Amount 300 / 300 300 / 300 200 / 200 Output: Urine 1400 / 1400 250 / 250 Other: Date of Last Bowel Movement 09/20/18 09/20/18 09/21/18 # Incontinent Bowel Movements 3 1 Narrative: Alert and awake Trachea: palpable Abd: soft - Urinary Catheter Management Straight Cath placed during this visit: yes, but has since been removed by the nurse Reason for continuing: Not indwelling catheter Insertion date: 09/20/18 Insertion time: 02:45 Removal date: 09/20/18 Removal time: 03:00 Indwelling Urethral Catheter Cath placed during this visit: yes, but has since been removed by the nurse Reason for continuing: Not indwelling catheter Removal date: 09/19/18 Removal time: 18:00 Results - Labs CBC & Chem 7: 09/21/18 06:29 09/21/18 06:29 Laboratory Results - last 24 hr 09/20/18 09/21/1809/21/19 17:58 00:54 05:45 WBC RBC Hgb Hct MCV MCH MCHC RDW Plt Count MPV Neut % (Auto) Lymph % (Auto) [place] % (Auto) Eos % (Auto) Baso % (Auto) Neut # (Auto) Lymph # (Auto) [place] # (Auto) Eos # (Auto) Baso # (Auto) WBC Differential Differential Comment Sodium Potassium Chloride Carbon Dioxide Anion Gap BUN Creatinine Estimated GFR POC Glucose 104 90 105 Random Glucose Calcium Magnesium 09/21/18 09/21/18 09/21/18 06:29 06:29 12:00 WBC 11.1 H RBC 2.95 L Hgb 8.1 L Hct 25.1 L MCV 85.0 MCH 27.4 MCHC 32.2 RDW 15.8 Plt Count 253 MPV 8.5 Neut % (Auto) 73.4 H Lymph % (Auto) 11.3 [place] % (Auto) 9.6 H Eos % (Auto) 5.3 H Baso % (Auto) 0.4 Neut # (Auto) 8.1 H Lymph # (Auto) 1.3 [place] # (Auto) 1.1 H Eos # (Auto) 0.6 H Baso # (Auto) 0.0 WBC Differential . Differential Comment Auto diff final Sodium 141 Potassium 3.3 L Chloride 106 Carbon Dioxide 25.3 Anion Gap 10 BUN 16 Creatinine 1.05 H Estimated GFR 53 L POC Glucose 102 Random Glucose 103 Calcium 8.1 L Magnesium 2.2 Microbiology 09/17/18 16:00 Blood - Peripheral Aerobic Blood Culture - Preliminary No growth in 4 days 09/17/18 16:00 Blood - Peripheral Anaerobic Blood Culture - Preliminary No growth in 4 days 09/17/18 16:05 Blood - Peripheral Aerobic Blood Culture - Preliminary No growth in 4 days 09/17/18 16:05 Blood - Peripheral Anaerobic Blood Culture - Preliminary No growth in 4 days 09/18/18 13:00 Bronchial - Right Middle Lobe Gram Stain - Final 09/18/18 13:00 Bronchial - Right Middle Lobe Bronchial Culture - Final S. aureus MRSA 09/18/18 11:10 Sputum - Endotracheal Gram Stain - Final 09/18/18 11:10 Sputum - Endotracheal Sputum Culture - Final S. aureus MRSA - Imaging Impressions Abdomen/Pelvis CT 09/20/18 00:00 CONCLUSION: 1. No acute abnormality demonstrated within the abdomen or pelvis. 2. There is an area of nonspecific subcutaneous edema and induration of the left lateral flank. This could be cellulitis but is not typical of an organized abscess at this time. Chest CT 09/20/18 00:00 CONCLUSION: 1. There is elevation of left hemidiaphragm with compressive atelectasis and consolidation of the left lower lobe. 2. Patchy right upper lobe groundglass infiltrate in right lower lobe posterior basilar consolidation. Assessment and Plan - Plan RESPIRATORY FAILURE COPD CHF RAD AFIB PLAN vent support bronchodilator therapy FOR TRACHEOSTOMY
[2018-09-21] MEDS: LORazepam 0.5 MG Tablet NG/OG PRN (17:04)
[2018-09-21] MEDS: hydrALAZINE 10 MG Tablet PO SCH (21:49)
[2018-09-21] MEDS: Potassium Chloride Liq 20 MEQ/15 ML UDC PO PRN (21:49)
[2018-09-22] MEDS: Oral Hygiene Kit OROPHARYNG SCH ×5 (00:32→23:54)
[2018-09-22] MEDS: Insulin NovoLOG Aspart Correctional Sugar Inj SQ SCH ×5 (00:32→23:54)
[2018-09-22] MEDS: LORazepam 0.5 MG Tablet NG/OG PRN (02:01)
[2018-09-22] MEDS: Artificial Tears Opth Drops 15 ML Bottle EACH EYE SCH ×3 (02:30→17:44)
[2018-09-22] MEDS: Chlorhexidine Gluconate 2% 1 Pack (2 Cloths) TOPICAL SCH (06:39)
--- NOTE | 2018-09-22 07:49 | P.PNFP ---
Subjective Interval history: Patient seen and examined this morning with nurse at bedside. She was a little agitated and asked the nurse to leave the room so that she could communicate with me on paper. Basically said that she was being held hostage and wanted me to call her daughter Riya right then so that she could come and take her; she even asked me to call the [place] police. I called Riya who is well aware that her mom is scheduled for surgery this morning and states that she hopes to get to the hospital before her mother is wheeled to the OR. Two separate events happened this morning. Around 3:00 am, her O2 saturations dropped low enough that she had to be taken of the ventilator and bagged. Large blood clots were suctioned by RT which resolved the situation. Then as reported by pt's nurse, around 7am at shift change, pt removed her restraints and tried to pull out her ET tube resulting in her heart rate dropping to the 20's and she almost coded. She was put back on the restraints immediately. There were no fevers overnight. <Eko R3,Soha U - 09/22/18 09:02> Results - Labs Result diagrams: 09/22/18 07:49 09/22/18 07:49 <MooseattRay villa - 09/22/18 14:28> Abnormal lab results 09/21/18 09/22/18 09/22/18 Range/Units 17:13 06:36 07:49 RBC 3.44 L (4.00-5.30) mil/mm3 Hgb 9.5 L (11.6-15.3) gm/dL Hct 29.3 L (35.0-46.0) % Neut % (Auto) 78.5 H (16.0-70.0) % [place] % (Auto) 8.4 H (0.0-8.0) % Neut # (Auto) 8.2 H (1.8-7.7) th/mm3 Creatinine (0.50-1.00) mg/dL Estimated GFR (>89) mL/min POC Glucose 125 H 111 H (68-110) mg/dl Random Glucose (74-106) mg/dL Calcium (8.5-10.1) mg/dL 09/22/18 Range/Units 07:49 RBC (4.00-5.30) mil/mm3 Hgb (11.6-15.3) gm/dL Hct (35.0-46.0) % Neut % (Auto) (16.0-70.0) % [place] % (Auto) (0.0-8.0) % Neut # (Auto) (1.8-7.7) th/mm3 Creatinine 1.07 H (0.50-1.00) mg/dL Estimated GFR 52 L (>89) mL/min POC Glucose (68-110) mg/dl Random Glucose 145 H (74-106) mg/dL Calcium 8.4 L (8.5-10.1) mg/dL Short CBC 09/22/18 Range/Units 07:49 WBC 10.4 (4.0-11.0) th/mm3 Hgb 9.5 L (11.6-15.3) gm/dL Hct 29.3 L (35.0-46.0) % Plt Count 305 (150-450) th/mm3 [facility] 09/22/18 07:49 Sodium 143 Potassium 3.6 Chloride 107 Carbon Dioxide 24.6 BUN 15 Creatinine 1.07 H Calcium 8.4 L <Ray Fraire - 09/22/18 14:28> Abnormal lab results 09/21/18 09/21/18 09/22/18 Range/Units 06:29 17:13 06:36 Potassium 3.3 L (3.5-5.1) meq/L Creatinine 1.05 H (0.50-1.00) mg/dL Estimated GFR 53 L (>89) mL/min POC Glucose 125 H 111 H (68-110) mg/dl Calcium 8.1 L (8.5-10.1) mg/dL [facility] 09/21/18 06:29 Sodium 141 Potassium 3.3 L Chloride 106 Carbon Dioxide 25.3 BUN 16 Creatinine 1.05 H Calcium 8.1 L <Eko R3,Soha U - 09/22/18 07:49> Physical Exam Vital signs: Vital Signs 09/21/18 15:00 09/21/18 15:58 09/21/18 16:00 Temperature 98.8 F Pulse Rate 62 70 Respiratory Rate 21 20 24 Blood Pressure 115/70 110/78 Pulse Oximetry 95 96 96 09/21/18 17:00 09/21/18 18:00 09/21/18 19:00 Temperature Pulse Rate 69 73 81 Respiratory Rate 41 H 29 H 27 H Blood Pressure 129/78 125/85 123/87 Pulse Oximetry 94 L 95 95 09/21/18 20:00 09/21/18 21:00 09/21/18 21:01 Temperature 98.8 F Pulse Rate 69 93 H 92 H Respiratory Rate 22 24 23 Blood Pressure 165/88 H 157/82 H Pulse Oximetry 97 97 95 09/21/18 22:00 09/21/18 23:00 09/22/18 00:00 Temperature 100.0 F H Pulse Rate 81 75 67 Respiratory Rate 21 18 15 Blood Pressure 147/85 H 119/63 121/70 Pulse Oximetry 99 96 100 09/22/18 00:01 09/22/18 01:00 09/22/18 01:20 Temperature Pulse Rate 81 74 Respiratory Rate 18 45 H 23 Blood Pressure 156/97 H Pulse Oximetry 100 92 L 95 09/22/18 02:00 09/22/18 02:37 09/22/18 03:00 Temperature Pulse Rate 74 69 77 Respiratory Rate 30 H 22 36 H Blood Pressure 156/103 H Pulse Oximetry 96 95 89 L 09/22/18 03:01 09/22/18 04:00 09/22/18 06:00 Temperature 99.0 F Pulse Rate 86 69 64 Respiratory Rate 51 H 19 Blood Pressure 140/86 121/84 Pulse Oximetry 89 L 94 L 09/22/18 08:00 09/22/18 09:00 09/22/18 10:00 Temperature 99.0 F Pulse Rate 86 84 77 Respiratory Rate 26 H 23 Blood Pressure 168/101 H Pulse Oximetry 96 09/22/18 10:40 09/22/18 12:00 09/22/18 12:03 Temperature 99.1 F Pulse Rate 77 75 Respiratory Rate Blood Pressure 139/79 143/77 H Pulse Oximetry 99 78 L 95 09/22/18 12:06 09/22/18 12:09 09/22/18 12:27 Temperature Pulse Rate 76 74 74 Respiratory Rate 33 H Blood Pressure 139/70 130/62 197/106 H Pulse Oximetry 97 97 98 09/22/18 12:30 09/22/18 12:32 09/22/18 12:33 Temperature Pulse Rate 73 77 75 Respiratory Rate 21 19 18 Blood Pressure 193/103 H 182/119 H 184/100 H Pulse Oximetry 98 98 98 09/22/18 12:34 09/22/18 12:35 09/22/18 12:36 Temperature Pulse Rate 72 70 69 Respiratory Rate 24 18 18 Blood Pressure 165/96 H 153/96 H 155/88 H Pulse Oximetry 99 99 100 09/22/18 12:39 09/22/18 12:40 09/22/18 12:42 Temperature Pulse Rate 68 69 69 Respiratory Rate 18 18 14 Blood Pressure 155/85 H 172/113 H Pulse Oximetry 99 94 L 98 09/22/18 12:46 09/22/18 12:48 09/22/18 12:51 Temperature Pulse Rate 68 67 69 Respiratory Rate 16 12 20 Blood Pressure 202/122 H 177/105 H 160/99 H Pulse Oximetry 98 95 94 L 09/22/18 12:54 09/22/18 12:57 09/22/18 13:00 Temperature Pulse Rate 68 67 67 Respiratory Rate 11 L 8 L 11 L Blood Pressure 148/83 H 149/81 H 144/87 H Pulse Oximetry 92 L 92 L 92 L 09/22/18 13:03 09/22/18 13:06 09/22/18 13:10 Temperature Pulse Rate 67 67 67 Respiratory Rate 11 L 13 17 Blood Pressure 143/86 H 140/76 150/80 H Pulse Oximetry 93 L 93 L 93 L 09/22/18 13:12 09/22/18 13:16 09/22/18 13:18 Temperature Pulse Rate 68 69 69 Respiratory Rate 37 H 20 12 Blood Pressure 145/82 H 142/96 H 146/102 H Pulse Oximetry 93 L 94 L 94 L 09/22/18 14:00 Temperature Pulse Rate 69 Respiratory Rate Blood Pressure Pulse Oximetry Intake & Output 09/21/18 09/22/18 09/22/18 18:59 06:59 18:59 Intake Total 1100 / 1100 1046 / 1046 400 / 400 Output Total 500 / 500 500 / 500 5 / 5 Balance 600 / 600 546 / 546 395 / 395 Weight 144.4 kg Intake: IV 500 / 500 400 / 400 Azactam Inj 1,000 MG In NS Inj 200 / 200 100 / 100 100 ML @ 200 mls/hr IV.SIG Q8H [facility] Rx#:[id number] Zyvox 600 mg Premix 300 ML @ 300 / 300 300 / 300 300 mls/hr IV.SIG Q12H [facility] Rx#: [id number] Tube Feeding 246 / 246 Water Bolus Amount 300 / 300 200 / 200 Free Water Amount 300 / 300 200 / 200 200 / 200 Anesthesia Amount 200 / 200 Output: Urine 500 / 500 500 / 500 Estimated Blood Loss 5 / 5 Other: # Voids 1 2 Date of Last Bowel Movement 09/21/18 09/21/18 09/21/18 <PrevatteRay - 09/22/18 14:28> Vital Signs 09/21/18 08:00 09/21/18 09:00 09/21/18 10:00 Temperature 98.6 F Pulse Rate 70 70 67 Respiratory Rate 20 20 21 Blood Pressure 103/59 L 104/55 L 107/63 Pulse Oximetry 93 L 95 98 09/21/18 11:00 09/21/18 12:00 09/21/18 12:45 Temperature 98.9 F Pulse Rate 66 63 Respiratory Rate 20 22 26 H Blood Pressure 103/55 L 104/57 L Pulse Oximetry 100 99 98 09/21/18 13:00 09/21/18 14:00 09/21/18 15:00 Temperature Pulse Rate 102 H 64 62 Respiratory Rate 31 H 23 21 Blood Pressure 163/74 H 125/69 115/70 Pulse Oximetry 85 L 95 95 09/21/18 15:58 09/21/18 16:00 09/21/18 17:00 Temperature 98.8 F Pulse Rate 70 69 Respiratory Rate 20 24 41 H Blood Pressure 110/78 129/78 Pulse Oximetry 96 96 94 L 09/21/18 18:00 09/21/18 19:00 09/21/18 20:00 Temperature 98.8 F Pulse Rate 73 81 69 Respiratory Rate 29 H 27 H 22 Blood Pressure 125/85 123/87 165/88 H Pulse Oximetry 95 95 97 09/21/18 21:00 09/21/18 21:01 09/21/18 22:00 Temperature Pulse Rate 93 H 92 H 81 Respiratory Rate 24 23 21 Blood Pressure 157/82 H 147/85 H Pulse Oximetry 97 95 99 09/21/18 23:00 09/22/18 00:00 09/22/18 00:01 Temperature 100.0 F H Pulse Rate 75 67 Respiratory Rate 18 15 18 Blood Pressure 119/63 121/70 Pulse Oximetry 96 100 100 09/22/18 01:00 09/22/18 01:20 09/22/18 02:00 Temperature Pulse Rate 81 74 74 Respiratory Rate 45 H 23 30 H Blood Pressure 156/97 H 156/103 H Pulse Oximetry 92 L 95 96 09/22/18 02:37 09/22/18 03:00 09/22/18 03:01 Temperature Pulse Rate 69 77 86 Respiratory Rate 22 36 H 51 H Blood Pressure 140/86 Pulse Oximetry 95 89 L 89 L 09/22/18 04:00 09/22/18 06:00 Temperature 99.0 F Pulse Rate 69 64 Respiratory Rate 19 Blood Pressure 121/84 Pulse Oximetry 94 L Intake & Output 09/21/18 09/22/18 09/22/18 18:59 06:59 18:59 Intake Total 1100 / 1100 1046 / 1046 Output Total 500 / 500 500 / 500 Balance 600 / 600 546 / 546 Weight 144.4 kg Intake: IV 500 / 500 400 / 400 Azactam Inj 1,000 MG In NS Inj 200 / 200 100 / 100 100 ML @ 200 mls/hr IV.SIG Q8H [facility] Rx#:[id number] Zyvox 600 mg Premix 300 ML @ 300 / 300 300 / 300 300 mls/hr IV.SIG Q12H [facility] Rx#: [id number] Tube Feeding 246 / 246 Water Bolus Amount 300 / 300 200 / 200 Free Water Amount 300 / 300 200 / 200 Output: Urine 500 / 500 500 / 500 Other: # Voids 1 2 Date of Last Bowel Movement 09/21/18 09/21/18 <Eko R3,Soha U - 09/22/18 07:49> Narrative: Narrative: GENERAL: Intubated. Awake, alert, seems upset and anxious. Writing on paper. SKIN: Warm and dry. HEENT: Atraumatic. Normocephalic. Pupils equal and round. EOMI. No scleral icterus. No injection or drainage. CARDIOVASCULAR: Regular rate and rhythm. No murmur appreciated. RESPIRATORY: CTAB, no increased work of breathing. Good air movement GASTROINTESTINAL: Abdomen soft, nondistended. Bowel sounds are present EXTREMITIES: Early venous stasis changes noted bilaterally. Bilateral 2+ pitting pre-tibial edema <Eko R3Soha U - 09/22/18 09:02> - Urinary Catheter Management Indwelling Urethral Catheter Cath placed during this visit: no <Mooseattallen,Ray - 09/22/18 14:28> yes, but has since been removed by the nurse <Soha Potter U - 09/22/18 09:02> Reason for continuing: Not indwelling catheter <Eko R3Soha U - 09/22/18 07 :49> Removal date: 09/19/18 <Eko R3Soha U - 09/22/18 07:49> Removal time: 18:00 <Eko R3Soha U - 09/22/18 07:49> Straight Cath placed during this visit: no <Mooseatte,Ray - 09/22/18 14:28> yes, but has since been removed by the nurse <Soha Potter - 09/22/18 09:02> Reason for continuing: Not indwelling catheter <Eko R3Soha U - 09/22/18 07 :49> Insertion date: 09/20/18 <Eko R3Soha - 09/22/18 07:49> Insertion time: 02:45 <Eko R3,Soha U - 09/22/18 07:49> Removal date: 09/20/18 <Eko R3Soha U - 09/22/18 07:49> Removal time: 03:00 <Eko R3Soha U - 09/22/18 07:49> Assessment and Plan - Assessment (1) Acute respiratory failure Code(s): J96.00 - Acute respiratory failure, unspecified whether with hypoxia or hypercapnia Status: Acute (2) MRSA pneumonia Code(s): J15.212 - Pneumonia due to Methicillin resistant Staphylococcus aureus Status: Acute (3) RAD (obstructive sleep apnea) Code(s): G47.33 - Obstructive sleep apnea (adult) (pediatric) Status: Acute (4) CHF exacerbation Code(s): I50.9 - Heart failure, unspecified Status: Acute (5) Hypertension Code(s): I10 - Essential (primary) hypertension Status: Acute (6) COPD (chronic obstructive pulmonary disease) Code(s): J44.9 - Chronic obstructive pulmonary disease, unspecified Status: Acute (7) GERD (gastroesophageal reflux disease) Code(s): K21.9 - Gastro-esophageal reflux disease without esophagitis Status: Acute (8) Afib Code(s): I48.91 - Unspecified atrial fibrillation Status: Acute (9) Anxiety Code(s): F41.9 - Anxiety disorder, unspecified Status: Acute (10) Tremors of nervous system Code(s): R25.1 - Tremor, unspecified Status: Acute (11) Chronic back pain Code(s): M54.9 - Dorsalgia, unspecified; G89.29 - Other chronic pain Status: Acute (12) Anemia Code(s): D64.9 - Anemia, unspecified Status: Acute (13) KIKE (acute kidney injury) Code(s): N17.9 - Acute kidney failure, unspecified Status: Acute <Ray Fraire - 09/22/18 14:28> (1) Acute respiratory failure Code(s): J96.00 - Acute respiratory failure, unspecified whether with hypoxia or hypercapnia Status: Acute (2) MRSA pneumonia Code(s): J15.212 - Pneumonia due to Methicillin resistant Staphylococcus aureus Status: Acute (3) RAD (obstructive sleep apnea) Code(s): G47.33 - Obstructive sleep apnea (adult) (pediatric) Status: Acute (4) CHF exacerbation Code(s): I50.9 - Heart failure, unspecified Status: Acute (5) Hypertension Code(s): I10 - Essential (primary) hypertension Status: Acute (6) COPD (chronic obstructive pulmonary disease) Code(s): J44.9 - Chronic obstructive pulmonary disease, unspecified Status: Acute (7) GERD (gastroesophageal reflux disease) Code(s): K21.9 - Gastro-esophageal reflux disease without esophagitis Status: Acute (8) Afib Code(s): I48.91 - Unspecified atrial fibrillation Status: Acute (9) Anxiety Code(s): F41.9 - Anxiety disorder, unspecified Status: Acute (10) Tremors of nervous system Code(s): R25.1 - Tremor, unspecified Status: Acute (11) Chronic back pain Code(s): M54.9 - Dorsalgia, unspecified; G89.29 - Other chronic pain Status: Acute (12) Anemia Code(s): D64.9 - Anemia, unspecified Status: Acute (13) KIKE (acute kidney injury) Code(s): N17.9 - Acute kidney failure, unspecified Status: Acute <Eko R3,Soha U - 09/22/18 08:33> - Assessment and Plan 63-year-old female presented with shortness of breath presumed to be due to CHFpEF but likely related to her chronic obstructive sleep apnea. The patient was noted to be obtunded 09/15 with acute respiratory failure and marked CO2 retention requiring emergent intubation with mechanical ventilation. On 09/18, bronchoscopy was performed with removal of copious amounts of mucus mixed with bright red blood from both bronchi. She was also started on vancomycin and aztreonam due to fevers. Bronchial washings and sputum grew MRSA - ID consulted on 09/20/2018 - switched to Linezolid and aztreonam. She is scheduled to have a tracheostomy today 09/22/18. Acute hypercarbic respiratory failure -s/p emergent intubation 09/15 AM, still intubated - failed CPAP trials -Bronchoscopy with washings performed on 09-18 * Cultures positive for MRSA -Critical care on board -Continue mechanical ventilation -On Fentanyl for light sedation MRSA Pneumonia -Bronchial washings and sputum grew MRSA -No fever in the past 24 hours -Blood cultures no growth x 4 days -ID on board -Patient on Linezolid (started on 09/20) and aztreonam started on 09/18 Obstructive sleep apnea with obesity hypoventilation syndrome -Plan as above -Pulmonology on board. Patient known to Dr. House -Patient agrees to a tracheostomy * General surgery arranging for the OR today 09/22 * Currently NPO except meds Acute Kidney Injury - Improved - Continue Furosemide - Coello catheter placed for I/Os - Strict Is and Os - Avoid nephrotoxic medications CHF -Presumed exacerbation of CHF on admission, diastolic dysfunction -However, symptoms are more related to the patient's chronic and untreated RAD -Monitor strict I/O's -Continue Furosemide AFIB -Continue home sotalol if BP can tolerate Hypertension -Monitor vital signs -Continue home BP medications if blood pressure tolerates COPD -The patient carries a diagnosis of COPD per chart review -Possible heavy secondhand smoke exposure or symptoms all stemming from RAD -Spiriva nebulizer 0.5 mg q4h scheduled - patient reports allergy to albuterol Anemia -Patient has chronic anemia -Currently stable, continue to monitor CBC daily Anxiety -Continue home lorazepam 1 mg p.o. twice daily prn GERD -On Famotidine for ppx Chronic back pain/arthritis -Allergic to multiple medications including ibuprofen and Tylenol, not on any pain medications at home -Consider alternative therapies if needed -PT evaluate and treat while in the hospital once patient is extubated Left earache -No signs of infection or inflammation on exam -Pt's nurse will discuss with arson and bomb investigator about ear drops FEN/ppx F: Free water flushes E: On ICU electrolyte protocol N: NPO except meds. After tracheostomy, RD recommends Jevity 1.5 @ 55mL/hr to provide 1980kcal, 84g of protein, and 1003mL of free water to best meet pts updated needs -DVT ppx: Lovenox held due to hemoptysis, SCDs in place -GI ppx: Famotidine, Senna/Docusate Continue soft restraints <Eko R3,Soha U - 09/22/18 09:02> Discussed Condition With: Dr. Fraire <Eko R3,Soha U - 09/22/18 09:02> Discharge Planning: Pending clinical improvement <Eko R3,Soha U - 09/22/18 07:49> - Attending Attestation The exam, history, and the medical decision-making described in the above note were completed with the assistance of the resident physician. I reviewed and agree with the findings presented. I attest that I had a [id number] encounter with the patient on the same day, and personally performed and documented my assessment and findings in the medical record. I examined the patient at 13:45. She is now status post trach procedure, sedated, appears comfortable, lung exam reveals good air movement bilaterally. <Ray Fraire - 09/22/18 14:28>
--- NOTE | 2018-09-22 08:08 | P.PN ---
Subjective Interval history: ON VENTILATOR NAD FOR TRACHEOSTOMY Physical Exam Vital signs: Vital Signs 09/21/18 09:00 09/21/18 10:00 09/21/18 11:00 Temperature Pulse Rate 70 67 66 Respiratory Rate 20 21 20 Blood Pressure 104/55 L 107/63 103/55 L Pulse Oximetry 95 98 100 09/21/18 12:00 09/21/18 12:45 09/21/18 13:00 Temperature 98.9 F Pulse Rate 63 102 H Respiratory Rate 22 26 H 31 H Blood Pressure 104/57 L 163/74 H Pulse Oximetry 99 98 85 L 09/21/18 14:00 09/21/18 15:00 09/21/18 15:58 Temperature Pulse Rate 64 62 Respiratory Rate 23 21 20 Blood Pressure 125/69 115/70 Pulse Oximetry 95 95 96 09/21/18 16:00 09/21/18 17:00 09/21/18 18:00 Temperature 98.8 F Pulse Rate 70 69 73 Respiratory Rate 24 41 H 29 H Blood Pressure 110/78 129/78 125/85 Pulse Oximetry 96 94 L 95 09/21/18 19:00 09/21/18 20:00 09/21/18 21:00 Temperature 98.8 F Pulse Rate 81 69 93 H Respiratory Rate 27 H 22 24 Blood Pressure 123/87 165/88 H Pulse Oximetry 95 97 97 09/21/18 21:01 09/21/18 22:00 09/21/18 23:00 Temperature Pulse Rate 92 H 81 75 Respiratory Rate 23 21 18 Blood Pressure 157/82 H 147/85 H 119/63 Pulse Oximetry 95 99 96 09/22/18 00:00 09/22/18 00:01 09/22/18 01:00 Temperature 100.0 F H Pulse Rate 67 81 Respiratory Rate 15 18 45 H Blood Pressure 121/70 Pulse Oximetry 100 100 92 L 09/22/18 01:20 09/22/18 02:00 09/22/18 02:37 Temperature Pulse Rate 74 74 69 Respiratory Rate 23 30 H 22 Blood Pressure 156/97 H 156/103 H Pulse Oximetry 95 96 95 09/22/18 03:00 09/22/18 03:01 09/22/18 04:00 Temperature 99.0 F Pulse Rate 77 86 69 Respiratory Rate 36 H 51 H 19 Blood Pressure 140/86 121/84 Pulse Oximetry 89 L 89 L 94 L 02/21/19 06:00 Temperature Pulse Rate 64 Respiratory Rate Blood Pressure Pulse Oximetry Intake & Output 09/21/18 09/22/18 09/22/18 18:59 06:59 18:59 Intake Total 1100 / 1100 1046 / 1046 Output Total 500 / 500 500 / 500 Balance 600 / 600 546 / 546 Weight 144.4 kg Intake: IV 500 / 500 400 / 400 Azactam Inj 1,000 MG In NS Inj 200 / 200 100 / 100 100 ML @ 200 mls/hr IV.SIG Q8H PABLO Rx#:[id number] Zyvox 600 mg Premix 300 ML @ 300 / 300 300 / 300 300 mls/hr IV.SIG Q12H PABLO Rx#: [id number] Tube Feeding 246 / 246 Water Bolus Amount 300 / 300 200 / 200 Free Water Amount 300 / 300 200 / 200 Output: Urine 500 / 500 500 / 500 Other: # Voids 1 2 Date of Last Bowel Movement 09/21/18 09/21/18 Narrative: Alert and awake Trachea: palpable Abd: soft - Urinary Catheter Management Straight Cath placed during this visit: yes, but has since been removed by the nurse Reason for continuing: Not indwelling catheter Insertion date: 09/20/18 Insertion time: 02:45 Removal date: 09/20/18 Removal time: 03:00 Indwelling Urethral Catheter Cath placed during this visit: yes, but has since been removed by the nurse Reason for continuing: Not indwelling catheter Removal date: 09/19/18 Removal time: 18:00 Results - Labs CBC & Chem 7: 09/21/18 06:29 09/21/18 06:29 Laboratory Results - last 24 hr 09/21/18 09/21/18 09/21/18 06:29 12:00 17:13 Sodium 141 Potassium 3.3 L Chloride 106 Carbon Dioxide 25.3 Anion Gap 10 BUN 16 Creatinine 1.05 H Estimated GFR 53 L POC Glucose 102 125 H Random Glucose 103 Calcium 8.1 L Magnesium 2.2 09/22/18 09/22/18 00:29 06:36 Sodium Potassium Chloride Carbon Dioxide Anion Gap BUN Creatinine Estimated GFR POC Glucose 109 111 H Random Glucose Calcium Magnesium Microbiology 09/17/18 16:00 Blood - Peripheral Aerobic Blood Culture - Preliminary No growth in 4 days 09/17/18 16:00 Blood - Peripheral Anaerobic Blood Culture - Preliminary No growth in 4 days 09/17/18 16:05 Blood - Peripheral Aerobic Blood Culture - Preliminary No growth in 4 days 09/17/18 16:05 Blood - Peripheral Anaerobic Blood Culture - Preliminary No growth in 4 days Assessment and Plan - Plan RESPIRATORY FAILURE COPD CHF RAD AFIB PLAN vent support bronchodilator therapy FOR TRACHEOSTOMY
[2018-09-22 08:18] LABS: Activated Partial Thrombo Time 24.8 sec (23.4-31.7); INR 1.1 Ratio; Prothrombin Time 10.7 sec (9.8-11.6)
[2018-09-22 08:22] LABS: Baso # (Auto) 0.1 th/mm3 (0.0-0.2); Baso % (Auto) 0.6 % (0.0-2.0); Eos # (Auto) 0.3 th/mm3 (0.0-0.4); Eos % (Auto) 2.7 % (0.0-4.0); Hematocrit 29.3 % (35.0-46.0); Hemoglobin 9.5 gm/dL (11.6-15.3); Lymph % (Auto) 9.8 % (9.0-44.0); Mean Corpuscular HGB Conc 32.4 % (32.0-36.0); Mean Corpuscular Hemoglobin 27.5 pg (27.0-34.0); Mean Corpuscular Volume 85.1 fL (80.0-100.0); Mean Platelet Volume 8.2 fL (7.0-11.0); Mono # (Auto) 0.9 th/mm3 (0.0-0.9); Mono % (Auto) 8.4 % (0.0-8.0); Neut # (Auto) 8.2 th/mm3 (1.8-7.7); Neut % (Auto) 78.5 % (16.0-70.0); Platelet Count 305 th/mm3 (150-450); Red Blood Count 3.44 mil/mm3 (4.00-5.30); Red Cell Distribution Width 15.7 % (11.6-17.2); White Blood Count 10.4 th/mm3 (4.0-11.0)
[2018-09-22] MEDS ORDERED: Propofol Inj 500 MG/50 ML Vial ONE ×2 (08:23→10:12)
[2018-09-22 08:31] LABS: Calcium 8.4 mg/dL (8.5-10.1); Carbon Dioxide 24.6 meq/L (21.0-32.0); Magnesium 2.3 mg/dL (1.5-2.5); Potassium 3.6 meq/L (3.5-5.1)
[2018-09-22] MEDS ORDERED: Lidocaine 1%/Epinephrine 1:100,000 Inj 20 ML Vial ONE (08:49)
--- NOTE | 2018-09-22 09:01 | P.PNID ---
Subjective Remarks: Ms. Valencia is a 63-year-old female with past medical history significant for A. fib with RVR, hypertension with history of hypertensive urgency, congestive heart failure, COPD as well as a history of depression and anxiety. Patient was admitted on September 14, 2018 evaluated in the emergency patient presented initially to [facility] ED with complaints of shortness of breath that was going on for a few weeks but in the 2-3 days prior to admission and had actually worsened. Patient also had started noticing increasing swelling of bilateral feet reportedly. As reported to others she was having difficulty lying on her side and difficulty laying flat. Patient also had reported tremors in her hands while holding objects. Patient reportedly had gained about 45 pounds in the last 3-4 months even though she has not been eating more than her U patient's manager talent management is Dr. Silverman and had reduced her dose of Lasix. Patient was initially admitted under family medicine service. Per review of records it appears that she has congestive heart failure with ejection fraction of 55% in 2012. There is also reported history of essential tremors. On September 15, 2018 patient clinically deteriorated with worsening shortness of breath and was found to be obtunded and therefore critical care was consulted and patient was transferred to the ICU. Her pH was 7.17 and she was retaining CO2 and for acute hypercarbic respiratory failure patient ended up being intubated. Patient had blood cultures which are negative. Patient has sputum cultures and bronch cultures positive for MRSA. Despite being treated with IV vancomycin patient continues to have fever which is concerning either for a drug fever or possible empyema or lung abscess. Her initial influenza testing with antigen was negative. At the time of my evaluation patient remains in the ICU currently intubated. Patient has been refusing Precedex and is currently wide awake on the ventilator and CPAP trial was attempted this morning. Patient communicates by writing on a piece of paper and writes appropriate sentences some questions. Patient currently is not on any pressors has decent urine output. Patient has no rash. Overnight events reviewed. No fevers No rash No diarrhea Pulled her ET this am. HR dropped to high 20s and low 30s and almost coded per elias RN Antibiotics: Azactam IV Vanco IV Lines: Lines ok Past Medical History: reviewed Allergies/Adverse Reactions: Allergies acetaminophen Allergy (Severe, Verified 09/14/18 02:45) Tachycardia, swelling Swelling lips, throat hydrocodone Allergy (Severe, Verified 09/14/18 02:45) Tachycardia, swelling Swelling lips, throat ibuprofen Allergy (Severe, Verified 09/14/18 02:45) Swelling Swelling lips, throat morphine Allergy (Severe, Verified 09/14/18 02:45) Swelling Swelling lips , throat propoxyphene Allergy (Severe, Verified 09/14/18 02:45) Swelling Swelling, lips , throat albuterol Allergy (Intermediate, Verified 09/14/18 02:45) Tachycardia amoxicillin Allergy (Unknown, Verified 09/14/18 02:45) Atrial Fibrillation codeine Allergy (Unknown, Verified 09/14/18 02:45) UNKNOWN sertraline Allergy (Unknown, Verified 09/14/18 02:45) UNKNOWN pantoprazole Adverse Reaction (Unknown, Verified 09/14/18 02:45) Nausea/Vomiting INHALERS FOR COPD (ALL) Allergy (Severe, Uncoded 09/14/18 02:45) PALPITATIONS/DIAPHORESIS VICOPROFEN Allergy (Severe, Uncoded 09/14/18 02:45) Swelling "ANY PAIN PILLS" Adverse Reaction (Severe, Uncoded 09/14/18 02:45) AFIB Objective Vital Signs 09/21/18 09:00 09/21/18 10:00 09/21/18 11:00 Temperature Pulse Rate 70 67 66 Respiratory Rate 20 21 20 Blood Pressure 104/55 L 107/63 103/55 L Pulse Oximetry 95 98 100 09/21/18 12:00 09/21/18 12:45 09/21/18 13:00 Temperature 98.9 F Pulse Rate 63 102 H Respiratory Rate 22 26 H 31 H Blood Pressure 104/57 L 163/74 H Pulse Oximetry 99 98 85 L 09/21/18 14:00 09/21/18 15:00 09/21/18 15:58 Temperature Pulse Rate 64 62 Respiratory Rate 23 21 20 Blood Pressure 125/69 115/70 Pulse Oximetry 95 95 96 09/21/18 16:00 09/21/18 17:00 09/21/18 18:00 Temperature 98.8 F Pulse Rate 70 69 73 Respiratory Rate 24 41 H 29 H Blood Pressure 110/78 129/78 125/85 Pulse Oximetry 96 94 L 95 09/21/18 19:00 09/21/18 20:00 09/21/18 21:00 Temperature 98.8 F Pulse Rate 81 69 93 H Respiratory Rate 27 H 22 24 Blood Pressure 123/87 165/88 H Pulse Oximetry 95 97 97 09/21/18 21:01 09/21/18 22:00 09/21/18 23:00 Temperature Pulse Rate 92 H 81 75 Respiratory Rate 23 21 18 Blood Pressure 157/82 H 147/85 H 119/63 Pulse Oximetry 95 99 96 09/22/18 00:00 09/22/18 00:01 09/22/18 01:00 Temperature 100.0 F H Pulse Rate 67 81 Respiratory Rate 15 18 45 H Blood Pressure 121/70 Pulse Oximetry 100 100 92 L 09/22/18 01:20 09/22/18 02:00 09/22/18 02:37 Temperature Pulse Rate 74 74 69 Respiratory Rate 23 30 H 22 Blood Pressure 156/97 H 156/103 H Pulse Oximetry 95 96 95 09/22/18 03:00 09/22/18 03:01 09/22/18 04:00 Temperature 99.0 F Pulse Rate 77 86 69 Respiratory Rate 36 H 51 H 19 Blood Pressure 140/86 121/84 Pulse Oximetry 89 L 89 L 94 L 09/22/18 06:00 Temperature Pulse Rate 64 Respiratory Rate Blood Pressure Pulse Oximetry Intake & Output 09/21/18 09/22/18 09/22/18 18:59 06:59 18:59 Intake Total 1100 / 1100 1046 / 1046 Output Total 500 / 500 500 / 500 Balance 600 / 600 546 / 546 Weight 144.4 kg Intake: IV 500 / 500 400 / 400 Azactam Inj 1,000 MG In NS Inj 200 / 200 100 / 100 100 ML @ 200 mls/hr IV.SIG Q8H PABLO Rx#:[id number] Zyvox 600 mg Premix 300 ML @ 300 / 300 300 / 300 300 mls/hr IV.SIG Q12H PABLO Rx#: [id number] Tube Feeding 246 / 246 Water Bolus Amount 300 / 300 200 / 200 Free Water Amount 300 / 300 200 / 200 Output: Urine 500 / 500 500 / 500 Other: # Voids 1 2 Date of Last Bowel Movement 09/21/18 09/21/18 09/17/18 16:00 Blood - Peripheral Aerobic Blood Culture - Preliminary No growth in 4 days 09/17/18 16:00 Blood - Peripheral Anaerobic Blood Culture - Preliminary No growth in 4 days 09/17/18 16:05 Blood - Peripheral Aerobic Blood Culture - Preliminary No growth in 4 days 09/17/18 16:05 Blood - Peripheral Anaerobic Blood Culture - Preliminary No growth in 4 days 09/18/18 13:00 Bronchial - Right Middle Lobe Gram Stain - Final 09/18/18 13:00 Bronchial - Right Middle Lobe Bronchial Culture - Final S. aureus MRSA 09/18/18 11:10 Sputum - Endotracheal Gram Stain - Final 09/18/18 11:10 Sputum - Endotracheal Sputum Culture - Final S. aureus MRSA 09/18/18 13:00 Bronchial Washings - Right Middle Lobe Acid Fast Bacilli Smear - Final No acid fast bacilli seen 09/18/18 13:00 Bronchial Washings - Right Middle Lobe Mycobacterial Culture - Pending 09/18/18 13:00 Bronchial Washings - Right Middle Lobe Fungal Smear - Final No fungal elements seen 09/18/18 13:00 Bronchial Washings - Right Middle Lobe Fungal Culture - Pending Lab - Hematology Results 09/21/18 09/22/18 06:29 07:49 WBC 11.1 H 10.4 RBC 2.95 L 3.44 L Hgb 8.1 L 9.5 L Hct 25.1 L 29.3 L MCV 85.0 85.1 MCH 27.4 27.5 MCHC 32.2 32.4 RDW 15.8 15.7 Plt Count 253 305 MPV 8.5 8.2 Neut % (Auto) 73.4 H 78.5 H Lymph % (Auto) 11.3 9.8 Beadle % (Auto) 9.6 H 8.4 H Eos % (Auto) 5.3 H 2.7 Baso % (Auto) 0.4 0.6 Neut # (Auto) 8.1 H 8.2 H Lymph # (Auto) 1.3 1.0 Beadle # (Auto) 1.1 H 0.9 Eos # (Auto) 0.6 H 0.3 Baso # (Auto) 0.0 0.1 WBC Differential . . Differential Comment Auto diff final Auto diff final Lab - Chemistry Results 09/20/18 09/20/18 09/20/18 08:06 12:45 17:58 Sodium 144 Potassium 3.8 Chloride 109 H Carbon Dioxide 26.4 Anion Gap 9 BUN 14 Creatinine 1.06 H Estimated GFR 52 L POC Glucose 120 H 104 Random Glucose 122 H Calcium 8.5 Magnesium 2.2 09/21/18 09/21/18 09/21/18 00:54 05:45 06:29 Sodium 141 Potassium 3.3 L Chloride 106 Carbon Dioxide 25.3 Anion Gap 10 BUN 16 Creatinine 1.05 H Estimated GFR 53 L POC Glucose 90 105 Random Glucose 103 Calcium 8.1 L Magnesium 2.2 09/21/18 09/21/18 09/22/18 12:00 17:13 00:29 Sodium Potassium Chloride Carbon Dioxide Anion Gap BUN Creatinine Estimated GFR POC Glucose 102 125 H 109 Random Glucose Calcium Magnesium 09/22/18 09/22/18 06:36 07:49 Sodium 143 Potassium 3.6 Chloride 107 Carbon Dioxide 24.6 Anion Gap 11 BUN 15 Creatinine 1.07 H Estimated GFR 52 L POC Glucose 111 H Random Glucose 145 H Calcium 8.4 L Magnesium 2.3 Imaging: ITS Impressions Abdomen/Bladder Ultrasound 09/16/18 08:29 CONCLUSION: 1. Negative renal sonogram other than right renal cyst. Chest X-Ray 09/19/18 06:00 CONCLUSION: 1. Bibasilar airspace disease with some improving aeration in the right base. 2. Stable position of life-support tubes. 3. Stable elevation of the left hemidiaphragm. Stable cardiomegaly. Abdomen/Pelvis CT 09/20/18 00:00 CONCLUSION: 1. No acute abnormality demonstrated within the abdomen or pelvis. 2. There is an area of nonspecific subcutaneous edema and induration of the left lateral flank. This could be cellulitis but is not typical of an organized abscess at this time. Chest CT 09/20/18 00:00 CONCLUSION: 1. There is elevation of left hemidiaphragm with compressive atelectasis and consolidation of the left lower lobe. 2. Patchy right upper lobe groundglass infiltrate in right lower lobe posterior basilar consolidation. Physical Exam: GENERAL: Morbidly obese, awake on the vent, large neck. SKIN: Cool and dry, no generalized rash HEAD: Atraumatic. Normocephalic. No temporal or scalp tenderness. EYES: Pupils equal round and reactive. Scleral icterus. No injection or drainage. No petechia ENT: Orally intubated NECK: Trachea midline. Supple, nontender, no meningeal signs. CARDIOVASCULAR: HS audible. RESPIRATORY: Air entry equal bilaterally. Clear to auscultation bilaterally. GASTROINTESTINAL: Abdomen soft,NT MUSCULOSKELETAL: Extremities without clubbing, cyanosis. NEUROLOGICAL: Sedated Psych could not be assessed Skin folds with no evidence of infection. IV line sites ok. Assessment and Plan - Plan MRSA pneumonia rule out empyema or lung abscess Acute respiratory failure on vent,hypercarbic respiratory failure Morbid obesity History of sleep apnea was on CPAP has not been compliant History of congestive heart failure with EF of 55% History of A. fib Recommendations Continue Azactam IV Continue Zyvox IV No new fevers WBC mildly elevated no change in clinical status clinically appears stable. [facility] [place] [facility] Follow clinical course Case discussed with CCM dw Palliative care would like to get patient and family to understand that a trach may be an interim step to wean her off vent as extubation without trach may not be safe given her bradycardia this am. Case discussed with YULIANA
[2018-09-22] MEDS: Simethicone 125 MG Chew Tablet PO SCH (09:06)
[2018-09-22] MEDS: Mupirocin 2% Nasal Oint Topical Syringe EACH NARE SCH ×2 (09:06→21:51)
[2018-09-22] MEDS: Chlorhexidine 0.12% Oral Kit 15 ML UDC OROPHARYNG SCH ×2 (09:07→21:51)
[2018-09-22] MEDS: Senna/Docusate Sodium 8.6/50 MG Tablet PO SCH ×2 (09:07→21:51)
[2018-09-22] MEDS: Famotidine PF Inj 20 MG/2 ML Vial IV.PUSH SCH ×2 (09:08→21:51)
[2018-09-22] MEDS: hydrALAZINE 10 MG Tablet PO SCH ×2 (09:16→21:54)
[2018-09-22] MEDS ORDERED: Sodium Chlor 0.9% Inj 250 ML IV.CONT ONE (10:50)
[2018-09-22] MEDS ORDERED: Glycopyrrolate Inj 1 MG/5 ML Syringe IV.PUSH ONE (10:50)
--- NOTE | 2018-09-22 11:16 | P.PNCC ---
Subjective Subjective Remarks/Hospital Course: This is a 63-year-old female. Date of admission 09/14/2018. Date of consultation 09/15/2018. Past medical history includes paroxysmal atrial fibrillation currently normal sinus rhythm, elevated BMI, congestive heart failure with last documented ejection fraction 55% 2012, COPD, hypertension, left bundle branch block essential tremors. Patient originally planned to [facility] on 09/14/2018 with worsening shortness of breath slowly on coming over the past couple weeks. She also noticed increasing bilateral lower extremity edema. Per documentation, patient recently saw her furniture duster Dr. Silverman on Wednesday who asked her to drink as much fluid and juice as she possibly could and reduce her dose of Lasix from 20 mg twice a day to once a day. During current hospitalization, patient resume home medications of enalapril, furosemide, metoprolol and hydralazine. Patient seen by cardiology and pulmonology. Refusing to be from central sleep apnea. Currently on ipratropium aerosols every [address] House. Seen by Dr. Chew. Switch to sotalol 80 mg twice daily and diuresis furosemide 40 mg IV twice daily. This morning, patient was found obtunded. PH was 7.17. Retaining CO2. Transfer to ICU and intubated using 20 mg etomidate. 09/16: No acute distress on mechanical ventilation. Arousable but not following commands. Tolerating tube feeding. Decreased urine output. Will Place Coello catheter to monitor accurate I's and O's 09/17: Failed extubation yesterday after 20 minutes. Extremely anxious. Currently on low-dose dexmedetomidine drip and bradycardic. Tube feeds restarted. Urine output has increased. 09/18: Some hemoptysis overnight. Enoxaparin held. Currently on CPAP trials at 40%. Started on vancomycin and aztreonam for fevers. Arousable and follows commands 09/19: Patient failed trial of extubation again yesterday, required bronchoscopy due to bloody secretions from ETT but no active bleeding was seen. 09/20: General surgery consulted for tracheostomy, patient was agreeable when I spoke with her yesterday but her daughter was hesitant. Awaiting their decision. The patient's sputum cultures are positive for MRSA, will consult ID. The patient wrote on a piece of paper to me that she is having hallucinations from precedex. She is requesting that I discontinue this medication. 09/21: No overnight events. Patient became tachypneic and appeared anxious and distressed when I briefly attempted to switch her to spontaneous breathing trial , placed back on AC. Tentatively planned for tracheostomy tomorrow. 09/22: Awake and alert. Remains orally intubated on mechanical ventilation. Awaiting tracheostomy. Objective Vital Signs / I&O: Vital Signs 09/21/18 12:00 09/21/18 12:45 09/21/18 13:00 Temperature 98.9 F Pulse Rate 63 102 H Respiratory Rate 22 26 H 31 H Blood Pressure 104/57 L 163/74 H Pulse Oximetry 99 98 85 L 09/21/18 14:00 09/21/18 15:00 09/21/18 15:58 Temperature Pulse Rate 64 62 Respiratory Rate 23 21 20 Blood Pressure 125/69 115/70 Pulse Oximetry 95 95 96 09/21/18 16:00 09/21/18 17:00 09/21/18 18:00 Temperature 98.8 F Pulse Rate 70 69 73 Respiratory Rate 24 41 H 29 H Blood Pressure 110/78 129/78 125/85 Pulse Oximetry 96 94 L 95 09/21/18 19:00 09/21/18 20:00 09/21/18 21:00 Temperature 98.8 F Pulse Rate 81 69 93 H Respiratory Rate 27 H 22 24 Blood Pressure 123/87 165/88 H Pulse Oximetry 95 97 97 09/21/18 21:01 09/21/18 22:00 09/21/18 23:00 Temperature Pulse Rate 92 H 81 75 Respiratory Rate 23 21 18 Blood Pressure 157/82 H 147/85 H 119/63 Pulse Oximetry 95 99 96 09/22/18 00:00 09/22/18 00:01 09/22/18 01:00 Temperature 100.0 F H Pulse Rate 67 81 Respiratory Rate 15 18 45 H Blood Pressure 121/70 Pulse Oximetry 100 100 92 L 09/22/18 01:20 09/22/18 02:00 09/22/18 02:37 Temperature Pulse Rate 74 74 69 Respiratory Rate 23 30 H 22 Blood Pressure 156/97 H 156/103 H Pulse Oximetry 95 96 95 09/22/18 03:00 09/22/18 03:01 09/22/18 04:00 Temperature 99.0 F Pulse Rate 77 86 69 Respiratory Rate 36 H 51 H 19 Blood Pressure 140/86 121/84 Pulse Oximetry 89 L 89 L 94 L 09/22/18 06:00 09/22/18 09:00 09/22/18 10:40 Temperature Pulse Rate 64 84 Respiratory Rate 23 Blood Pressure Pulse Oximetry 96 99 Intake & Output 09/21/18 09/22/18 09/22/18 18:59 06:59 18:59 Intake Total 1100 / 1100 1046 / 1046 100 / 100 Output Total 500 / 500 500 / 500 Balance 600 / 600 546 / 546 100 / 100 Weight 144.4 kg Intake: IV 500 / 500 400 / 400 Azactam Inj 1,000 MG In NS Inj 200 / 200 100 / 100 100 ML @ 200 mls/hr IV.SIG Q8H PABLO Rx#:[id number] Zyvox 600 mg Premix 300 ML @ 300 / 300 300 / 300 300 mls/hr IV.SIG Q12H PABLO Rx#: [id number] Tube Feeding 246 / 246 Water Bolus Amount 300 / 300 200 / 200 Free Water Amount 300 / 300 200 / 200 100 / 100 Output: Urine 500 / 500 500 / 500 Other: # Voids 1 2 Date of Last Bowel Movement 09/21/18 09/21/18 Result Diagrams: 09/22/18 07:49 09/22/18 07:49 Objective Remarks: GENERAL: Intubated, awake and alert SKIN: No rashes or lesions HEAD: NCAT EYES: PERRL ENT: Mucous membranes pink and moist. NECK: Trachea midline CARDIOVASCULAR: Regular rate and rhythm RESPIRATORY: Diminished breath sounds due to body habitus, secretions thick but not bloody GASTROINTESTINAL: Abdomen soft, non-tender, obese MUSCULOSKELETAL: Trace nonpitting bilateral lower extremity edema NEUROLOGICAL: RASS +1, awake and alert, nods/ shakes head appropriately to yes/ no questions Assessment and Plan - Assessment and Plan Plan: 63yF presenting with acute hypoxic respiratory failure and failed attempt at extubation x 2 Neuro/Psych: Anxiety disorder Chronic benzodiazepine use Propofol/fentanyl for light sedation, goal RASS -1 PRN ativan for breakthrough anxiety Acetaminophen allergy documented CV: Paroxysmal atrial fibrillation currently normal sinus rhythm Congestive heart failure unknown etiology. Last echocardiogram EF 50-55% Elevated HDL Followed by cardiology Sotalol 80 mg twice daily started by cardiology several days ago, hold home dose of metoprolol/ hydralazine Currently holding enalapril 20 mg daily in light of hypotension and acute kidney injury Echocardiogram: 09/06/12 - ejection fraction of 50-55% with normal wall motion Myocardial perfusion scan: 09/07/12 - slight ischemia in the LAD distribution with an ejection fraction of 60 Diurese as detailed below Resp: Acute respiratory failure with CO2 retention Obstructive sleep apnea -untreated Previous diagnosis of COPD Obesity hypoventilation syndrome Hemoptysis Last PFT showed mild restrictive lung disease. No obstructive component Followed by pulmonology Currently ipratropium aerosols every 4 hours scheduled Pharmacologic prophylaxis held due to hemoptysis, no source of bleeding noted on bronch 09/18 Tracheostomy scheduled for 09/22 GI: Gastroesophageal reflux disease Tube feeds- vital high-protein at 65 cc an hour, NPO for planned trach Famotidine for GI prophylaxis Docusate sodium/senna 1 tablet twice daily for bowel regimen : No indication for Coello Endo: Acute hyperglycemia Sliding scale insulin Accu-Cheks to maintain euglycemia aspart insulin every 6 hours, better controlled on medium algorithm Renal: Acute kidney injury- improving Hold lasix, give a dose of bumex 09/21 CHAPIS inhibitor discontinued due to KIKE, still on hold as BP is 100s-110s systolic Monitor urine output Accurate I's and O's Renal ultrasound only remarkable for incidental renal cyst; urine eosinophils, sodium and creatinine unremarkable Avoid nephrotoxic medications Heme: Leukocytosis Normocytic anemia No indication for transfusion of blood products at this time. Monitor CBC daily. Hemoptysis appears to have stopped at this point. ID: 09/15 sputum negative for influenza A and B No growth to date blood cultures x2 09/17 09/18 sputum culture positive for MRSA Empirically started on vancomycin and aztreonam for MRSA pneumonia, day #4 09/18 * ID consulted yesterday (Dr. Archuleta), vanco discontinued and patient was started on Zyvox. D/C aztreonam? Will defer to ID * Tmax 100.1F FEN: Hypernatremia Replace electrolytes as clinically indicated per ICU electrolyte protocol Continue free water flushes MSK: Elevated BMI Chronic low back pain Weight loss encouraged PT evaluate and treat Access -Utilize peripheral IV Prophylaxis -GI -famotidine -DVT -SCD/enoxaparin currently on hold due to hemoptysis and planned procedures. Can hopefully be restarted tomorrow after tracheostomy. OVERALL: This patient remains critically ill but stable. She requires continued ICU level of care. Discussed with Dr. Chatman, discussed with ID, discussed with NEW ACCOUNTS REPRESENTATIVE. To help prompt me to consider important information that might be impacting today's encounter and assessment, information from prior notes written by myself or my colleagues may have been "brought forward" into today's note. My signature on this note, however, is an attestation that I personally performed the exam, history, and/or decision-making noted today, and, unless otherwise indicated, the interactions with patient, family, and staff as well as the review of records all occurred today. I also attest that the listed assessment and stated plan reflect my best clinical judgment today based on the combination of historical information, prior notes, and today's exam/ interactions.
--- NOTE | 2018-09-22 11:37 | P.CONPAL ---
Consult Service: Palliative Care Requesting Physician: Jessi Archuleta Reason for Consult: a. To assist with evaluation and management of symptoms including: dyspnea, debility b. To assist medical decision maker(s) with: better understanding of current medical conditions; weighing benefits/burdens of medical treatment options; making medical treatment decisions. Primary Care Provider: Malathi Silverman MD History of Present Illness History of Present Illness: Patient is a 63 year old female who presented to [place] ED on 09/14/2018 with shortness of breath which started a few weeks earlier but had worsened in recent days. Patient reported increased swelling in her bilateral lower extremities and shorevetness of breath with minimal exertion; 45 pound weight gain reported in the past 3-4 months with no increase in oral intake. Patient follows Dr. Silverman, cardiology. Dr. Correia is her PCP. Past medical history is significant for sleep apnea, CHF, COPD (on home oxygen), hypertension , morbid obesity and atrial fibrillation. Clinical data: * Vital signs: Pulse 74, respirations 18, BP 142/64, oxygen saturation 94% on 2 L via nasal cannula, oral temperature 98.8 * WBC: 10.6, hemoglobin 10.5, hematocrit 31.9, platelets 232, neutrophils 78.9% * PT: 10.7, INR 1.1, APTT 24.8 * Sodium: 144, potassium 3.8, chloride 99, carbon dioxide 41.8, glucose 102, calcium 8.7 * BUN: 13, creatinine 0.83, GFR 69 * Total bilirubin: 0.3, AST 12, ALT 19, alkaline phosphatase 99 * Troponin: <0.02 * BNP: 108 * Total protein: 7.1, albumin 3.0 * Urinalysis not indicative of UTI * EKG: sinus rhythm with occasional supraventricular premature complexes; nonspecific ST and T wave abnormality. No significant change since previous tracing. * Chest x-ray showing mild interstitial prominence. Workup in the ED was grossly benign. Patient admitted for observation. Patient was seen by cardiology and pulmonology. She is morbidly obese with sleep apnea but is unable to tolerate CPAP. Last PFT showed mild restrictive lung disease with no obstructive component. Started on ipratropium aerosols every [address] Zepeda. Echocardiogram on 03/07/2015 with EF of 47%. Patient was diagnosed with CHF, probably related to diastolic dysfunction. 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 She also ate [place] food over the weekend. Patient developed markedly increased bilateral lower extremity edema and worsening shortness of breath with some orthopnea. Patient switched to sotalol 80 mg BID and increased furosemide 40 mg IV twice daily. Halicat was called the following morning after the patient was noted to be obtunded. Stat ABG remarkable for respiratory acidosis with marked CO2 retention. Patient was transferred to the intensive care unit where she was emergently intubated and placed on mechanical ventilation. Creatinine increased from 1.04-2.28 on 09/16/2018. ACEI and diuretics were stopped. Abdominal/bladder ultrasound due to worsening renal functioning was relatively normal. No evidence of mass or hydronephrosis. Right kidney noted to have a 1.6 x 1.5 cm cyst in the upper pole. Patient failed extubation trial on 09/16/2015, reintubated within 20 minutes. She is extremely anxious, started on a low-dose of dexmedetomidine. Cytology results from cell block suspicious for squamous cell carcinoma. Follow-up chest x-ray on 09/18/2018 showed slight interval worsening in aeration. Axillary temp 100.7. Started on Vancomycin and Azactam. Sputum cultures and bronchial cultures positive for MRSA. Infectious disease was consulted. Patient continued to have fevers despite being treated with vancomycin concerning for either a drug fever or possible empyema/lung abscess. Vancomycin changed to Zyvox. = CT chest on 09/20/2018 showed elevation in the left hemidiaphragm with compressive atelectasis and consolidation of the left lower lobe. Patchy right upper lobe groundless infiltrate on the right lower lobe posterior basilar validation. = CT abdomen/pelvis on 09/20/18 showed no acute abnormality within the abdomen or pelvis. There was an area of nonspecific subcutaneous edema and induration of the left lateral flank. This could be cellulitis but is not typical of an organized abscess. Patient pulled her ETT out this morning and her heart rate dropped into the high 20s/low 30s; almost requiring resuscitation. Tentative plan for tracheostomy later today. Palliative Care was consulted to assist with symptom management and to discuss with the family the benefits and burdens of her current illnesses and the options regarding future care. Patient seen and assessed in room 525. Patient sedated status post tracheostomy placement, showing no signs or symptoms of distress. Patient's daughter and [id number] were at the bedside. Palliative care services were introduced to the patient's family and contact information was provided. Palliative care will continue to follow this patient to establish trust, provide ongoing support and assist with symptom management. Function/Cognitive Trajectory: Patient lives in a 1 level home with a roommate; 2-3 step entry. She is on supplemental oxygen 2 L via nasal cannula. Patient only ambulates short distances with rollator before becoming short of breath; needs some assist with ADLS. Able to shower with bath chair. Daughter states the patient is able to drive and grocery shop with a scooter. She has become increasingly sedentary over the past 10+ years. Review of Systems unobtainable due to mental status PMFSH - History History Provided By: Patient - Medical History Medical History: Medical History (Last Updated 09/22/18 @ 10:43 by VICK Grande) A-fib CHF (congestive heart failure) COPD (chronic obstructive pulmonary disease) History of MRSA infection Hypertension MDRO (multiple drug resistant organisms) resistance Morbid obesity Oxygen dependent Sleep apnea - Surgical History Surgical History: Surgical History (Last Reviewed 09/20/18 @ 08:08 by Marisol Hadley DO) No pertinent past surgical history - Family History Family History: Family History (Last Updated 09/22/18 @ 10:30 by VICK Grande) Father History of cardiomyopathy Brother Hypertension Sleep apnea Daughter cardiomyopathy - Social History I have reviewed the patient's Social History: Yes - Tobacco History Second Hand Smoke Exposure: Yes Tobacco Use In Past 30 Days: No Smoking Status: Never smoker - Alcohol History How Often Do You Have a Drink Containing Alcohol: Never - Substance Use History Substance History: No History of Abuse - Immunization History Tetanus Immunization: <5 Years Hx Influenza Vaccine This Season: Yes Medications and Allergies Active Medications: Active Medications Al Hydroxide/Mg Hydroxide (Milk Of Magnayla Liq) 30 ml PO Q12H PRN PRN Reason: Mild Constipation Artificial Tears (Tears Naturale Opth Drops) 1 drop EACH EYE Q8H [facility] Last Admin: 09/22/18 09:56 Dose: 1 drop Aspirin (Aspirin Chew) 81 mg PO DAILY [facility] Last Admin: 09/21/18 09:34 Dose: 81 mg Bisacodyl (Dulcolax Supp) 10 mg RECTAL DAILY PRN PRN Reason: SEVERE CONSITIPATION Chlorhexidine Gluconate (Peridex 0.12% Oral Kit) 15 ml OROPHARYNG BID@0800, 2000 [facility] Last Admin: 09/22/18 09:07 Dose: 15 ml Chlorhexidine Gluconate (Chlorhexidine 2% Cloth) 3 pack TOPICAL DAILY@0400 [facility] Stop: 09/24/18 03:59 Last Admin: 09/22/18 06:39 Dose: 3 pack Chlorhexidine Gluconate (Chlorhexidine 2% Cloth) 3 pack TOPICAL DAILY@0400 PRN PRN Reason: Extra cloth needed Stop: 09/24/18 03:59 Dextrose (D50w Vial) 50 ml IV.PUSH UNSCH PRN PRN Reason: PER HYPOGLYCEMIA PROTOCOL Enoxaparin Sodium (Lovenox Inj) 40 mg SQ Q24H [facility] Last Admin: 09/17/18 09:15 Dose: 40 mg Famotidine (Pepcid Pf Inj) 20 mg IV.PUSH Q12HR [facility] Last Admin: 09/22/18 09:08 Dose: 20 mg Fluticasone Propionate (Flonase Nasal [place]) 1 spray NASAL DAILY PRN PRN Reason: NASAL CONGESTION Last Admin: 09/22/18 00:50 Dose: 1 spray Furosemide (Lasix) 20 mg PO DAILY [facility] Last Admin: 09/20/18 09:41 Dose: Not Given Glucagon (Glucagon Inj) 1 mg OTHER PRN PRN PRN Reason: for Hypoglycemia Protocol Hydralazine HCl (Apresoline) 10 mg PO BID [facility] Last Admin: 09/22/18 09:16 Dose: Not Given Magnesium Sulfate 4 gm/ Sodium (Chloride) 100 mls @ 50 mls/hr IV.SIG UNSCH PRN PRN Reason: For Magnesium 0.9 - 1.1 mg/dL Magnesium Sulfate 2 gm/ Sodium (Chloride) 100 mls @ 50 mls/hr IV.SIG UNSCH PRN PRN Reason: For Magnesium 1.2 - 1.6 mg/dL Potassium Chloride (Kcl 40 Meq Premix Inj) 40 meq in 100 mls @ 25 mls/hr IV.SIG Q2H PRN PRN Reason: For Potassium 2.8 - 3.2 mEq/L Potassium Chloride (Kcl 20 Meq Premix Inj) 20 meq in 100 mls @ 50 mls/hr IV.SIG Q2H PRN PRN Reason: For Potassium 3.3 - 3.5 mEq/L Potassium Chloride (Kcl 40 Meq Premix Inj) 40 meq in 100 mls @ 25 mls/hr IV.SIG UNSCH PRN PRN Reason: For Potassium 3.3 - 3.5 mEq/L Potassium Chloride (Kcl 20 Meq Premix Inj) 20 meq in 100 mls @ 50 mls/hr IV.SIG Q2H PRN PRN Reason: For Potassium 2.8 - 3.2 mEq/L Last Infusion: 09/19/18 08:59 Dose: Infused Potassium Phosphate 30 mmol/ (Sodium Chloride) 260 mls @ 42 mls/hr IV.SIG UNSCH PRN PRN Reason: SEE LABEL COMMENTS Last Infusion: 09/19/18 15:05 Dose: Infused Sodium Phosphate 30 mmol/ (Sodium Chloride) 260 mls @ 42 mls/hr IV.SIG UNSCH PRN PRN Reason: For Phosphorus < 2.5 mg/dL Aztreonam 1,000 mg/ Sodium (Chloride) 100 mls @ 200 mls/hr IV.SIG Q8H [facility] Last Admin: 09/22/18 09:07 Dose: 100 mls/hr Fentanyl (Fentanyl 10 Mcg/Ml Premix Drip) 2,500 mcg in 250 mls @ 5 mls/hr IV.SIG TITRATE PRN; Protocol PRN Reason: Per Protocol Linezolid (Zyvox 600 Mg Premix) 300 mls @ 300 mls/hr IV.SIG Q12H [facility] Last Infusion: 09/22/18 04:00 Dose: Infused Insulin Aspart (Novolog Insulin Correctional Sugar Inj) 0 unit SQ Q6HR [facility]; Protocol Last Admin: 09/22/18 06:37 Dose: Not Given Ipratropium Vanduser (Atrovent Neb) 0.5 mg NEB Q4HR NEB [facility] Last Admin: 09/22/18 08:58 Dose: 0.5 mg Lactulose (Lactulose Liq) 30 ml PO DAILY PRN PRN Reason: SEVERE CONSITIPATION Last Admin: 09/20/18 05:40 Dose: 30 ml Lorazepam (Ativan) 0.5 mg NG/OG Q8H PRN PRN Reason: ANXIETY Last Admin: 09/22/18 02:01 Dose: 0.5 mg Magnesium Oxide (Mag-Ox) 800 mg PO UNSCH PRN PRN Reason: For Magnesium 1.2 - 1.6 mg/dL Metoclopramide HCl (Reglan Inj) 5 mg IV.PUSH Q8HR [facility]; Protocol Last Admin: 09/22/18 06:40 Dose: 5 mg Miscellaneous (Pill Splitter) 1 each OTHER UNSCH PRN PRN Reason: SEE LABEL COMMENTS Miscellaneous Medication () 1 each OROPHARYNG 0000,0400,1200,1600 [facility] Last Admin: 09/22/18 06:39 Dose: 1 each Mupirocin (Bactroban 2% Oint) 1 applicatio TOPICAL BID [facility] Last Admin: 09/22/18 09:09 Dose: 1 applicatio Mupirocin (Bactroban 2% Nasal Oint) 1 applicatio EACH NARE BID [facility] Stop: 09/23/18 09:01 Last Admin: 09/22/18 09:06 Dose: 1 applicatio Potassium Chloride (Kcl Liq) 40 meq PO UNSCH PRN PRN Reason: Potassium level 3.3-3.5 mEq/L Last Admin: 09/21/18 21:49 Dose: 40 meq Potassium Chloride (Kcl Liq) 40 meq PO UNSCH PRN PRN Reason: POTASSIUM LESS THAN 3.5 Potassium Phosphate (K-Phos Original) 2,000 mg PO UNSCH PRN PRN Reason: SEE LABEL COMMENTS Potassium Phosphate (K-Phos Original) 2,000 mg PO Q4H PRN PRN Reason: Phosphorus Less Than 2.5 mg/dL Senna/Docusate Sodium (Eulalia-Colace) 1 tab PO BID [facility] Last Admin: 09/22/18 09:07 Dose: 1 tab Sennosides (Senokot) 17.2 mg PO Q12H PRN PRN Reason: Moderate Constipation Simethicone (Phazyme Chew) 125 mg PO DAILY [facility] Last Admin: 09/22/18 09:06 Dose: 125 mg Sodium Chloride (Ns Flush) 2 ml IV.FLUSH BID [facility] Last Admin: 09/22/18 09:09 Dose: 2 ml Sodium Chloride (Ns Flush) 2 ml IV.FLUSH UNSCH PRN PRN Reason: FLUSH AFTER USING IV ACCESS Last Admin: 09/18/18 09:03 Dose: 2 ml Sotalol HCl (Betapace) 80 mg PO BID [facility] Last Admin: 09/22/18 09:18 Dose: Not Given Sterile Water (Free Water) 100 ml NG/OG Q4H [facility] Last Admin: 09/22/18 09:10 Dose: 100 ml Allergies Allergy/AdvReac Type Severity Reaction Status Date / Time acetaminophen Allergy Severe Tachycardia, Verified 09/14/18 02:45 swelling hydrocodone Allergy Severe Tachycardia, Verified 09/14/18 02:45 swelling ibuprofen Allergy Severe Swelling Verified 09/14/18 02:45 morphine Allergy Severe Swelling Verified 09/14/18 02:45 propoxyphene Allergy Severe Swelling Verified 09/14/18 02:45 albuterol Allergy Intermediate Tachycardia Verified 09/14/18 02:45 amoxicillin Allergy Unknown Atrial Verified 09/14/18 02:45 Fibrillation codeine Allergy Unknown UNKNOWN Verified 09/14/18 02:45 sertraline Allergy Unknown UNKNOWN Verified 09/14/18 02:45 pantoprazole AdvReac Unknown Nausea/Vomi Verified 09/14/18 02:45 ting INHALERS FOR COPD (ALL) Allergy Severe PALPITATION Uncoded 09/14/18 02:45 S/DIAPHORES IS VICOPROFEN Allergy Severe Swelling Uncoded 09/14/18 02:45 "ANY PAIN PILLS" AdvReac Severe AFIB Uncoded 09/14/18 02:45 Home Medications Medication Instructions Recorded Confirmed Type enalapril maleate 5 mg PO DAILY 09/14/18 09/14/18 History furosemide [Lasix] 20 mg PO DAILY 09/14/18 09/14/18 History hydralazine 10 mg PO Q12H 09/14/18 09/14/18 History metoprolol tartrate 50 mg PO BID 09/14/18 09/14/18 History Advance Directives Today's verbally stated goals: Patient is currently unable to participate in establishment of medical treatment goals given her level of consciousness status post tracheostomy placement earlier today. Family/friends goals: Patient's family expressing aggressive goals. CODE STATUS remains FULL CODE. Ethical and Legal Issues: Per [place] statutes, in the absence of written advanced directives healthcare proxy decision making falls to the patient's only daughter (Riya). Physical Exam Vital Signs: Vital Signs - 24 hr 09/21/18 11:00 09/21/18 12:00 09/21/18 12:45 Temperature 98.9 F Pulse Rate 66 63 Respiratory Rate 20 22 26 H Blood Pressure 103/55 L 104/57 L Pulse Oximetry 100 99 98 09/21/18 13:00 09/21/18 14:00 09/21/18 15:00 Temperature Pulse Rate 102 H 64 62 Respiratory Rate 31 H 23 21 Blood Pressure 163/74 H 125/69 115/70 Pulse Oximetry 85 L 95 95 09/21/18 15:58 09/21/18 16:00 09/21/18 17:00 Temperature 98.8 F Pulse Rate 70 69 Respiratory Rate 20 24 41 H Blood Pressure 110/78 129/78 Pulse Oximetry 96 96 94 L 09/21/18 18:00 09/21/18 19:00 09/21/18 20:00 Temperature 98.8 F Pulse Rate 73 81 69 Respiratory Rate 29 H 27 H 22 Blood Pressure 125/85 123/87 165/88 H Pulse Oximetry 95 95 97 09/21/18 21:00 09/21/18 21:01 09/21/18 22:00 Temperature Pulse Rate 93 H 92 H 81 Respiratory Rate 24 23 21 Blood Pressure 157/82 H 147/85 H Pulse Oximetry 97 95 99 09/21/18 23:00 09/22/18 00:00 09/22/18 00:01 Temperature 100.0 F H Pulse Rate 75 67 Respiratory Rate 18 15 18 Blood Pressure 119/63 121/70 Pulse Oximetry 96 100 100 09/22/18 01:00 09/22/18 01:20 09/22/18 02:00 Temperature Pulse Rate 81 74 74 Respiratory Rate 45 H 23 30 H Blood Pressure 156/97 H 156/103 H Pulse Oximetry 92 L 95 96 09/22/18 02:37 09/22/18 03:00 09/22/18 03:01 Temperature Pulse Rate 69 77 86 Respiratory Rate 22 36 H 51 H Blood Pressure 140/86 Pulse Oximetry 95 89 L 89 L 09/22/18 04:00 09/22/18 06:00 09/22/18 09:00 Temperature 99.0 F Pulse Rate 69 64 84 Respiratory Rate 19 23 Blood Pressure 121/84 Pulse Oximetry 94 L 96 I&O: Intake & Output 09/20/18 09/21/18 09/22/18 09/23/18 06:59 06:59 06:59 06:59 Intake Total 4455.5 / 4455.5 2816 / 2816 2146 / 2146 100 / 100 Output Total 750 / 750 1650 / 1650 1000 / 1000 Balance 3705.5 / 3705.5 1166 / 1166 1146 / 1146 100 / 100 Weight 148.1 kg 148.6 kg 144.4 kg Physical Exam: CONSTITUTIONAL/GENERAL: This is a morbidly obese female status post tracheostomy placement in no acute distress. TUBES/LINES/DRAINS: Tracheostomy, NGT, PIV, SCDs SKIN: No jaundice, rashes, or lesions. Ecchymoses on upper extremities. No wounds visualized anteriorly. Skin temperature appropriate. Not diaphoretic. HEAD: Atraumatic. Normocephalic. EYES: Pupils equal and round and reactive. Extraocular motions intact. No scleral icterus. No injection or drainage. Fundi not examined. ENT: Nose without bleeding or purulent drainage. Mucous membranes moist and pink. NECK: Trachea midline. Supple, nontender. No palpable thyroid enlargement or nodularity. CARDIOVASCULAR: Regular rate and rhythm without murmurs, gallops, or rubs. No JVD. Peripheral pulses symmetric. RESPIRATORY/CHEST: Status post tracheostomy on 50% FiO2. Diminished breath sounds throughout likely related to body habitus. GASTROINTESTINAL: Abdomen soft, non-tender. Obese GENITOURINARY: Without palpable bladder distension. MUSCULOSKELETAL: Extremities without clubbing, cyanosis or mottling. Trace bilateral lower extremity edema LYMPHATICS: No palpable cervical or supraclavicular adenopathy. NEUROLOGICAL: Sedated status post tracheostomy placement. PSYCHIATRIC: Unable to assess given current level of responsiveness Diagnostic Tests Laboratory: Laboratory Results - last 72 hr 09/19/18 09/19/18 09/19/18 11:51 17:37 19:04 WBC RBC Hgb Hct MCV MCH MCHC RDW Plt Count MPV Neut % (Auto) Lymph % (Auto) [place] % (Auto) Eos % (Auto) Baso % (Auto) Neut # (Auto) Lymph # (Auto) [place] # (Auto) Eos # (Auto) Baso # (Auto) WBC Differential Differential Comment PT INR APTT Sodium Potassium 3.5 Chloride Carbon Dioxide Anion Gap BUN Creatinine Estimated GFR POC Glucose 155 H 139 H Random Glucose Calcium Phosphorus 3.3 D Magnesium 09/20/18 09/20/18 09/20/18 00:22 05:40 08:06 WBC 12.1 H RBC 3.34 L Hgb 9.8 L Hct 28.5 L MCV 85.4 MCH 29.3 MCHC 34.3 RDW 16.3 Plt Count 210 MPV 8.1 Neut % (Auto) 79.7 H Lymph % (Auto) 8.9 L [place] % (Auto) 6.7 Eos % (Auto) 4.3 H Baso % (Auto) 0.4 Neut # (Auto) 9.7 H Lymph # (Auto) 1.1 [place] # (Auto) 0.8 Eos # (Auto) 0.5 H Baso # (Auto) 0.0 WBC Differential . Differential Comment Auto diff final PT INR APTT Sodium Potassium Chloride Carbon Dioxide Anion Gap BUN Creatinine Estimated GFR POC Glucose 131 H 136 H Random Glucose Calcium Phosphorus Magnesium 09/20/18 09/20/18 09/20/18 08:06 12:45 17:58 WBC RBC Hgb Hct MCV MCH MCHC RDW Plt Count MPV Neut % (Auto) Lymph % (Auto) [place] % (Auto) Eos % (Auto) Baso % (Auto) Neut # (Auto) Lymph # (Auto) [place] # (Auto) Eos # (Auto) Baso # (Auto) WBC Differential Differential Comment PT INR APTT Sodium 144 Potassium 3.8 Chloride 109 H Carbon Dioxide 26.4 Anion Gap 9 BUN 14 Creatinine 1.06 H Estimated GFR 52 L POC Glucose 120 H 104 Random Glucose 122 H Calcium 8.5 Phosphorus Magnesium 2.2 09/21/18 09/21/18 09/21/18 00:54 05:45 06:29 WBC 11.1 H RBC 2.95 L Hgb 8.1 L Hct 25.1 L MCV 85.0 MCH 27.4 MCHC 32.2 RDW 15.8 Plt Count 253 MPV 8.5 Neut % (Auto) 73.4 H Lymph % (Auto) 11.3 [place] % (Auto) 9.6 H Eos % (Auto) 5.3 H Baso % (Auto) 0.4 Neut # (Auto) 8.1 H Lymph # (Auto) 1.3 [place] # (Auto) 1.1 H Eos # (Auto) 0.6 H Baso # (Auto) 0.0 WBC Differential . Differential Comment Auto diff final PT INR APTT Sodium Potassium Chloride Carbon Dioxide Anion Gap BUN Creatinine Estimated GFR POC Glucose 90 105 Random Glucose Calcium Phosphorus Magnesium 09/21/18 09/21/18 09/21/18 06:29 12:00 17:13 WBC RBC Hgb Hct MCV MCH MCHC RDW Plt Count MPV Neut % (Auto) Lymph % (Auto) [place] % (Auto) Eos % (Auto) Baso % (Auto) Neut # (Auto) Lymph # (Auto) [place] # (Auto) Eos # (Auto) Baso # (Auto) WBC Differential Differential Comment PT INR APTT Sodium 141 Potassium 3.3 L Chloride 106 Carbon Dioxide 25.3 Anion Gap 10 BUN 16 Creatinine 1.05 H Estimated GFR 53 L POC Glucose 102 125 H Random Glucose 103 Calcium 8.1 L Phosphorus Magnesium 2.2 09/22/18 09/22/18 09/22/18 00:29 06:36 07:49 WBC 10.4 RBC 3.44 L Hgb 9.5 L Hct 29.3 L MCV 85.1 MCH 27.5 MCHC 32.4 RDW 15.7 Plt Count 305 MPV 8.2 Neut % (Auto) 78.5 H Lymph % (Auto) 9.8 [place] % (Auto) 8.4 H Eos % (Auto) 2.7 Baso % (Auto) 0.6 Neut # (Auto) 8.2 H Lymph # (Auto) 1.0 [place] # (Auto) 0.9 Eos # (Auto) 0.3 Baso # (Auto) 0.1 WBC Differential . Differential Comment Auto diff final PT INR APTT Sodium Potassium Chloride Carbon Dioxide Anion Gap BUN Creatinine Estimated GFR POC Glucose 109 111 H Random Glucose Calcium Phosphorus Magnesium 09/22/18 09/22/18 07:49 07:49 WBC RBC Hgb Hct MCV MCH MCHC RDW Plt Count MPV Neut % (Auto) Lymph % (Auto) [place] % (Auto) Eos % (Auto) Baso % (Auto) Neut # (Auto) Lymph # (Auto) [place] # (Auto) Eos # (Auto) Baso # (Auto) WBC Differential Differential Comment PT 10.7 INR 1.1 APTT 24.8 Sodium 143 Potassium 3.6 Chloride 107 Carbon Dioxide 24.6 Anion Gap 11 BUN 15 Creatinine 1.07 H Estimated GFR 52 L POC Glucose Random Glucose 145 H Calcium 8.4 L Phosphorus Magnesium 2.3 Result Diagrams: 09/22/18 07:49 09/22/18 07:49 Microbiology: Microbiology 09/17/18 16:00 Aerobic Blood Culture - Preliminary Blood - Peripheral No growth in 4 days Anaerobic Blood Culture - Preliminary No growth in 4 days 09/17/18 16:05 Aerobic Blood Culture - Preliminary Blood - Peripheral No growth in 4 days Anaerobic Blood Culture - Preliminary No growth in 4 days 09/18/18 13:00 Gram Stain - Final Bronchial - Right Middle Lobe Bronchial Culture - Final S. aureus MRSA 09/18/18 11:10 Gram Stain - Final Sputum - Endotracheal Sputum Culture - Final S. aureus MRSA 09/18/18 13:00 Acid Fast Bacilli Smear - Final Bronchial Washings - Right Middle Lobe No acid fast bacilli seen 09/18/18 13:00 Fungal Smear - Final Bronchial Washings - Right Middle Lobe No fungal elements seen Imaging: Abdomen/Bladder Ultrasound 09/16/18 08:29 CONCLUSION: 1. Negative renal sonogram other than right renal cyst. Chest X-Ray 09/19/18 06:00 CONCLUSION: 1. Bibasilar airspace disease with some improving aeration in the right base. 2. Stable position of life-support tubes. 3. Stable elevation of the left hemidiaphragm. Stable cardiomegaly. Abdomen/Pelvis CT 09/20/18 00:00 CONCLUSION: 1. No acute abnormality demonstrated within the abdomen or pelvis. 2. There is an area of nonspecific subcutaneous edema and induration of the left lateral flank. This could be cellulitis but is not typical of an organized abscess at this time. Chest CT 09/20/18 00:00 CONCLUSION: 1. There is elevation of left hemidiaphragm with compressive atelectasis and consolidation of the left lower lobe. 2. Patchy right upper lobe groundglass infiltrate in right lower lobe posterior basilar consolidation. Procedures: 09/15/2018: Intubation 09/16/2018: Extubation 09/17/2018: Reintubation 09/18/2018: Extubation; bronchoscopy with reintubation Patient/Family Conference Present at Family Conference: Met with patient's daughter and [id number] at patient's bedside. Total visit with Santosh MedinaW Family Conference Location: Bedside Issues Discussed: * Palliative care role, purpose, approach * Additional medical, psychosocial, and spiritual history * Patients general health, functional status, and cognitive changes in the months leading up to the current hospitalization * Patient/family understanding of the current medical problems * Patient/family understanding of prognosis * Patients goals of care as best understood from advance directives and/or conversations and/or values * Current medical treatment options and benefits/burdens of those options * Likely scenarios comparing ongoing aggressive care with a transition to comfort measures only * Questions answered to the best of my ability * Palliative care contact information provided Assessment and Plan - Disease Oriented Problem List (1) CHF exacerbation (2) Hypertension (3) COPD (chronic obstructive pulmonary disease) (4) RAD (obstructive sleep apnea) (5) GERD (gastroesophageal reflux disease) (6) Afib (7) Anxiety (8) Acute respiratory failure (9) Pickwickian syndrome (10) Acute renal failure (11) Paroxysmal atrial fibrillation (12) MRSA pneumonia Pertinent Non-Medical Issues: Psychosocial: Patient was born and raised in [place]. She was ; her ex- is now . Patient worked for the [employer] before retiring. Patient has 1 daughter, Riya ( to Yasemin). She has 2 granddaughters ages 22 and 17 (Krystal and Niki). Spiritual: Anabaptism zuleima Legal: Per [place] statutes, in the absence of written advanced directives healthcare proxy decision making falls to the patient's daughter (Riya). Ethical issues impacting care: No known ethical issues impacting care at this time. . Important Contacts: Riya Valencia, daughter: [phone] Prognosis: Patient is a morbidly obese 63-year-old female with multiple comorbidities status post tracheostomy. She remains critically ill but stable requiring ICU level of care. Condition guarded. Code Status: Full Code Plan: * FULL CODE * Decision making: Per [place] statutes, in the absence of written advanced directives healthcare proxy decision making falls to the patient's daughter ( Riya) * Discussed patient with RN (Susan) and infectious disease (Dr. Archuleta) * AGGRESSIVE GOALS * Will discuss pathology findings suspicious for squamous cell carcinoma with medical team for further prognostication and potential need for further follow- up. * Symptom management: Debility: Patient is debilitated at baseline secondary to multiple comorbid conditions: Sleep apnea, CHF, COPD (on home oxygen), hypertension, morbid obesity and atrial fibrillation. Status post tracheostomy for multiple failed extubation trials. Patient will likely need Placement at discharge. Dyspnea: Patient with a history of COPD, RAD and congestive heart failure. CT chest on 09/20/2018 showed elevation in the left hemidiaphragm with compressive atelectasis and consolidation of the left lower lobe. Patchy right upper lobe groundless infiltrate on the right lower lobe posterior basilar validation. Pathology from bronchial washings suspicious for squamous cell carcinoma. Status post tracheostomy today 09/22/2018 * Palliative care will continue to follow this patient to establish stress, assist with symptom management and clarification of medical treatment goals. Appreciation Thank you for the opportunity to participate in the care of Rossy Valencia. Attestation Attestation: To help prompt me to consider important information that might be impacting today's encounter and assessment, information from prior notes written by myself or my colleagues may have been "brought forward" into today's note. My signature on this note, however, is an attestation that I personally performed the exam, history, and/or decision-making noted today, and, unless otherwise indicated, the interactions with patient, family, and staff as well as the review of records all occurred today. I also attest that the listed assessment and stated plan reflect my best clinical judgment today based on the combination of historical information, prior notes, and today's exam/ interactions. When time spent is documented, it refers only to time spent today by the signer, or if indicated, combined time spent today by collaborating physician/nurse practitioner.
[2018-09-22] MEDS ORDERED: fentaNYL Citrate Inj 100 MCG/2 ML Ampul ONE (12:41)
[2018-09-22] MEDS: Propofol 1000 mg/100 ml Inj 1,000 MG/100 ML BOTTLE IV.CONT PRN ×4 (14:19→23:43)
--- NOTE | 2018-09-22 18:44 | MP ---
cc: Papi Chatman MD DATE OF OPERATION: 09/22/2018 PREOPERATIVE DIAGNOSIS: Acute respiratory failure, need for tracheostomy surgical airway. POSTOPERATIVE DIAGNOSIS: Acute respiratory failure, need for tracheostomy surgical airway. PROCEDURE PERFORMED: Percutaneous tracheostomy in the operating room under bronchoscopic surveillance using a Shiley #8 proximal long tracheostomy. SURGEON: Papi Chatman MD INSURANCE PROCESSING CLERK: None. ANESTHESIA: GETA. IV FLUIDS: See anesthesia sheet. ESTIMATED BLOOD LOSS: 5 mL DRAINS: None. COMPLICATIONS: None. WOUND CLASSIFICATION: Clean. FINDINGS: Good end tidal return, bilateral breath sounds, good hemostasis. INDICATIONS FOR PROCEDURE: This is a 63-year-old female who presented on 09/14/2018. The patient was noted to be morbidly obese with multiple medical issues and has been on prolonged ventilation for almost 2 weeks now. A decision was made for a tracheostomy. Discussed with the patient and his family at bedside who understand and agree and thoroughly discussed the risks associated with the procedure, and the family consented along with the patient to proceed with operative intervention. DETAILS OF PROCEDURE: The patient was taken to the operating suite, placed in supine position, prepped and draped in the usual sterile fashion after the induction of general endotracheal anesthesia. The patient already noted to be on the ventilator. The timeout was done, stating correct patient, procedure, and surgical site. We were all in agreement with this. Attention was first directed to palpation of landmarks of the sternal notch and Jorje's apple and cricothyroid membrane. Local anesthetic was injected. A small 10 cm incision was made vertically along tracheal midline. Further dissection was done with a hemostat. Prior to this, the patient had been pre-oxygenated up to an FiO2 of 100%. Further dissection with a hemostat down to the trachea. The membrane was palpated. The second and third tracheal rings were noted. Bronchoscopic surveillance was done entering the ET tube for direct visualization. ET via anesthesia was retracted back and done under direct palpation by myself as well. The introducing needle with a cannula sheath was placed at the second, third inner tracheal ring. The sheath was advanced past the needle and the wire was cannulated over the sheath. The sheath was removed. The punch dilator was done to dilate the tracheal ring. A punch was removed. The Blue Rhino percutaneous tracheal dilator was done as well x4. This was removed. A proximal long #8 Shiley tracheostomy was obtained and cannulated with a wire and contents. The inner contents were removed. The inner cannula was placed and the ventilator was hooked to this tracheostomy. The patient noted to have good bilateral breath sounds and good end tidal CO2 as well with good oxygenation. Bronchoscopic surveillance was then reintroduced without noting any further bleeding and good hemostasis and good position. The tracheostomy was then sutured in place with 3-0 Prolene x4 and tracheal ties were placed. The patient tolerated the procedure well. A small 3-0 Prolene was placed around the incision for better approximation as well. No intraoperative complications. All lap and instrument counts were correct at the end of the procedure. The patient was taken to the intensive care unit. Papi Chatman MD LSN/ct , 05:50 PM , 05:58 PM
[2018-09-23] MEDS: Artificial Tears Opth Drops 15 ML Bottle EACH EYE SCH ×3 (01:53→17:38)
[2018-09-23] MEDS: Propofol 1000 mg/100 ml Inj 1,000 MG/100 ML BOTTLE IV.CONT PRN ×3 (02:00→08:48)
[2018-09-23] MEDS: Oral Hygiene Kit OROPHARYNG SCH ×3 (03:01→17:05)
[2018-09-23] MEDS: Chlorhexidine Gluconate 2% 1 Pack (2 Cloths) TOPICAL SCH (03:01)
[2018-09-23] MEDS: Insulin NovoLOG Aspart Correctional Sugar Inj SQ SCH ×3 (05:46→17:05)
--- NOTE | 2018-09-23 07:01 | P.PNFP ---
Subjective Interval history: Patient seen and examined this morning. She is mechanically ventilated with tracheostomy tube in place. Awake and alert. 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 Results - Labs Result diagrams: 09/22/18 07:49 09/22/18 07:49 Abnormal lab results 09/22/18 09/22/18 09/22/18 Range/Units 07:49 07:49 16:58 RBC 3.44 L (4.00-5.30) mil/mm3 Hgb 9.5 L (11.6-15.3) gm/dL Hct 29.3 L (35.0-46.0) % Neut % (Auto) 78.5 H (16.0-70.0) % Deuel % (Auto) 8.4 H (0.0-8.0) % Neut # (Auto) 8.2 H (1.8-7.7) th/mm3 Creatinine 1.07 H (0.50-1.00) mg/dL Estimated GFR 52 L (>89) mL/min POC Glucose 112 H (68-110) mg/dl Random Glucose 145 H (74-106) mg/dL Calcium 8.4 L (8.5-10.1) mg/dL Short CBC 09/22/18 Range/Units 07:49 WBC 10.4 (4.0-11.0) th/mm3 Hgb 9.5 L (11.6-15.3) gm/dL Hct 29.3 L (35.0-46.0) % Plt Count 305 (150-450) th/mm3 [facility] 09/22/18 07:49 Sodium 143 Potassium 3.6 Chloride 107 Carbon Dioxide 24.6 BUN 15 Creatinine 1.07 H Calcium 8.4 L Physical Exam Vital signs: Vital Signs 09/22/18 08:00 09/22/18 09:00 09/22/18 10:00 Temperature 99.0 F Pulse Rate 86 84 77 Respiratory Rate 26 H 23 Blood Pressure 168/101 H Pulse Oximetry 96 09/22/18 10:40 09/22/18 12:00 09/22/18 12:03 Temperature 99.1 F Pulse Rate 77 75 Respiratory Rate Blood Pressure 139/79 143/77 H Pulse Oximetry 99 78 L 95 09/22/18 12:06 09/22/18 12:09 09/22/18 12:27 Temperature Pulse Rate 76 74 74 Respiratory Rate 33 H Blood Pressure 139/70 130/62 197/106 H Pulse Oximetry 97 97 98 09/22/18 12:30 09/22/18 12:32 09/22/18 12:33 Temperature Pulse Rate 73 77 75 Respiratory Rate 21 19 18 Blood Pressure 193/103 H 182/119 H 184/100 H Pulse Oximetry 98 98 98 09/22/18 12:34 09/22/18 12:35 09/22/18 12:36 Temperature Pulse Rate 72 70 69 Respiratory Rate 24 18 18 Blood Pressure 165/96 H 153/96 H 155/88 H Pulse Oximetry 99 99 100 09/22/18 12:39 09/22/18 12:40 09/22/18 12:42 Temperature Pulse Rate 68 69 69 Respiratory Rate 18 18 14 Blood Pressure 155/85 H 172/113 H Pulse Oximetry 99 94 L 98 09/22/18 12:46 09/22/18 12:48 09/22/18 12:51 Temperature Pulse Rate 68 67 69 Respiratory Rate 16 12 20 Blood Pressure 202/122 H 177/105 H 160/99 H Pulse Oximetry 98 95 94 L 09/22/18 12:54 09/22/18 12:57 09/22/18 13:00 Temperature Pulse Rate 68 67 67 Respiratory Rate 11 L 8 L 11 L Blood Pressure 148/83 H 149/81 H 144/87 H Pulse Oximetry 92 L 92 L 92 L 09/22/18 13:03 09/22/18 13:06 09/22/18 13:10 Temperature Pulse Rate 67 67 67 Respiratory Rate 11 L 13 17 Blood Pressure 143/86 H 140/76 150/80 H Pulse Oximetry 93 L 93 L 93 L 09/22/18 13:12 09/22/18 13:16 09/22/18 13:18 Temperature Pulse Rate 68 69 69 Respiratory Rate 37 H 20 12 Blood Pressure 145/82 H 142/96 H 146/102 H Pulse Oximetry 93 L 94 L 94 L 09/22/18 14:00 09/22/18 15:00 09/22/18 15:03 Temperature Pulse Rate 69 72 71 Respiratory Rate 7 L 15 Blood Pressure 131/78 130/84 Pulse Oximetry 97 97 09/22/18 15:06 09/22/18 15:09 09/22/18 15:12 Temperature Pulse Rate 71 71 70 Respiratory Rate 11 L 12 9 L Blood Pressure 118/73 118/74 119/75 Pulse Oximetry 97 98 98 09/22/18 15:15 09/22/18 15:18 09/22/18 15:21 Temperature Pulse Rate 69 69 68 Respiratory Rate 9 L 8 L 9 L Blood Pressure 114/74 113/69 114/75 Pulse Oximetry 98 98 98 09/22/18 15:24 09/22/18 15:27 09/22/18 15:30 Temperature Pulse Rate 72 68 69 Respiratory Rate 9 L 3 L 2 L Blood Pressure 112/72 120/78 116/79 Pulse Oximetry 97 97 97 09/22/18 15:33 09/22/18 15:36 09/22/18 15:39 Temperature Pulse Rate 69 74 69 Respiratory Rate 0 L 12 0 L Blood Pressure 112/76 124/84 130/81 Pulse Oximetry 98 92 L 97 09/22/18 15:42 09/22/18 15:45 09/22/18 15:48 Temperature Pulse Rate 69 69 69 Respiratory Rate 1 L 0 L 5 L Blood Pressure 129/81 128/77 129/81 Pulse Oximetry 97 97 97 09/22/18 15:51 09/22/18 15:54 09/22/18 15:57 Temperature Pulse Rate 68 68 68 Respiratory Rate 9 L 7 L 18 Blood Pressure 124/79 121/78 121/82 Pulse Oximetry 97 97 97 09/22/18 16:00 09/22/18 18:00 09/22/18 20:00 Temperature 99.2 F 99.1 F Pulse Rate 67 76 77 Respiratory Rate 18 14 Blood Pressure 120/81 Pulse Oximetry 97 95 09/22/18 21:03 09/22/18 22:00 09/23/18 00:00 Temperature 99.0 F Pulse Rate 72 75 71 Respiratory Rate 18 18 Blood Pressure 101/63 Pulse Oximetry 97 97 09/23/18 01:14 09/23/18 02:00 09/23/18 04:00 Temperature 98.9 F Pulse Rate 67 68 71 Respiratory Rate 18 22 Blood Pressure 96/63 L Pulse Oximetry 97 09/23/18 05:01 09/23/18 06:00 Temperature Pulse Rate 68 73 Respiratory Rate 18 Blood Pressure Pulse Oximetry 96 Intake & Output 09/22/18 09/23/18 09/23/18 18:59 06:59 18:59 Intake Total 1400 / 1400 1160 / 1160 Output Total 505 / 505 Balance 895 / 895 1160 / 1160 Weight 150 kg Intake: IV 600 / 600 800 / 800 Diprivan 1000 mg/100 ml Inj 1, 100 / 100 400 / 400 000 mg In 100 ml @ 5 MCG/KG/MIN 4.332 mls/hr IV.CONT TITRATE PRN Rx#:[id number] Azactam Inj 1,000 MG In NS Inj 200 / 200 100 / 100 100 ML @ 200 mls/hr IV.SIG Q8H PABLO Rx#:[id number] Zyvox 600 mg Premix 300 ML @ 300 / 300 300 / 300 300 mls/hr IV.SIG Q12H PABLO Rx#: [id number] Oral 0 / 0 Tube Feeding 0 / 0 Water Bolus Amount 300 / 300 60 / 60 Free Water Amount 300 / 300 300 / 300 Anesthesia Amount 200 / 200 Output: Urine 500 / 500 Estimated Blood Loss 5 / 5 Other: # Voids 2 # Incontinent Voids 1 Date of Last Bowel Movement 09/21/18 09/21/18 # Incontinent Bowel Movements 0 Narrative: Narrative: GENERAL: Intubated. Awake and alert. SKIN: Warm and dry. HEENT: Atraumatic. Normocephalic. Pupils equal and round. EOMI. No scleral icterus. No injection or drainage. CARDIOVASCULAR: Regular rate and rhythm. No murmur appreciated. RESPIRATORY: CTAB, no increased work of breathing. Good air movement GASTROINTESTINAL: Abdomen soft, nondistended. Bowel sounds are present EXTREMITIES: Early venous stasis changes noted bilaterally. Bilateral 2+ pitting pre-tibial edema. Upper extremities are more swollen than the previous day. - Urinary Catheter Management Straight Cath placed during this visit: yes, but has since been removed by the nurse Reason for continuing: Not indwelling catheter Insertion date: 09/20/18 Insertion time: 02:45 Removal date: 09/20/18 Removal time: 03:00 Indwelling Urethral Catheter Cath placed during this visit: yes, but has since been removed by the nurse Reason for continuing: Not indwelling catheter Removal date: 09/19/18 Removal time: 18:00 Assessment and Plan - Assessment (1) Acute respiratory failure Code(s): J96.00 - Acute respiratory failure, unspecified whether with hypoxia or hypercapnia Status: Acute (2) MRSA pneumonia Code(s): J15.212 - Pneumonia due to Methicillin resistant Staphylococcus aureus Status: Acute (3) RAD (obstructive sleep apnea) Code(s): G47.33 - Obstructive sleep apnea (adult) (pediatric) Status: Acute (4) Hypertension Code(s): I10 - Essential (primary) hypertension Status: Acute (5) COPD (chronic obstructive pulmonary disease) Code(s): J44.9 - Chronic obstructive pulmonary disease, unspecified Status: Acute (6) GERD (gastroesophageal reflux disease) Code(s): K21.9 - Gastro-esophageal reflux disease without esophagitis Status: Acute (7) Afib Code(s): I48.91 - Unspecified atrial fibrillation Status: Acute (8) Anxiety Code(s): F41.9 - Anxiety disorder, unspecified Status: Acute (9) Tremors of nervous system Code(s): R25.1 - Tremor, unspecified Status: Acute (10) Chronic back pain Code(s): M54.9 - Dorsalgia, unspecified; G89.29 - Other chronic pain Status: Acute (11) Anemia Code(s): D64.9 - Anemia, unspecified Status: Acute (12) KIKE (acute kidney injury) Code(s): N17.9 - Acute kidney failure, unspecified Status: Acute (13) Abnormal cytology Code(s): R89.6 - Abnormal cytological findings in specimens from other organs, systems and tissues Status: Acute (14) Heart failure with preserved ejection fraction Code(s): I50.30 - Unspecified diastolic (congestive) heart failure Status: Acute - Assessment and Plan 63-year-old female presented with shortness of breath presumed to be due to CHFpEF but likely related to her chronic obstructive sleep apnea. The patient was noted to be obtunded 09/15 with acute respiratory failure and marked CO2 retention requiring emergent intubation with mechanical ventilation. On 09/18, bronchoscopy was performed with removal of copious amounts of mucus mixed with bright red blood from both bronchi. She was also started on vancomycin and aztreonam due to fevers. Bronchial washings and sputum grew MRSA - ID consulted on 09/20/2018 - switched to Linezolid and aztreonam and now improved. Tracheostomy tube was placed on 09/22/18. Right middle lobe bronchial washings from 09/20/2018 is suspicious for squamous cell carcinoma. Oncology consulted. Acute hypercarbic respiratory failure -Currently mechanically ventilated with a tracheostomy tube, FIO2 50% this am -Lightly sedated with propofol -No pressors -Wean off vent as tolerated -Critical care managing Obstructive sleep apnea with obesity hypoventilation syndrome -Last PFT showed mild restrictive lung disease -Trach as above -Pulmonology on board. Patient known to Dr. House MRSA Pneumonia -Bronchial washings and sputum grew MRSA -No fever in the past 24 hours, TMax 99.2F -Blood cultures no growth x 4 days -ID on board -Patient on Linezolid (started on 09/20) and aztreonam started on 09/18 Abnormal Cytology -Cell block from the right middle lobe washing on 09/18/18 showed: * Severely dysplastic squamous epithelium suspicious for squamous cell carcinoma * May explain bloody sputum and previous hemoptysis but will need further testing to confirm when she is much improved -Consult placed to oncology - will coordinate discussion with oncology and pulmonology -Palliative care was consulted by ID to discuss goals/progression of care, weaning off the vent, and abnormal lung cytology Acute Kidney Injury - Improving - Continue Furosemide - Strict Is and Os - Avoid nephrotoxic medications Heart Failure with Preserved Ejection Fraction -Echocardiogram: 09/06/12 - ejection fraction of 50-55% with normal wall motion -Monitor strict I/O's -Continue Furosemide AFIB -Stable -Continue home sotalol if BP can tolerate Hypertension -Monitor vital signs -Continue home BP medications if blood pressure tolerates COPD -The patient carries a diagnosis of COPD per chart review -Possible heavy secondhand smoke exposure or symptoms all stemming from RAD -Spiriva nebulizer 0.5 mg q4h scheduled - she reports allergy to albuterol Anemia -Chronic anemia -Currently stable, continue to monitor CBC daily Anxiety -Continue home lorazepam 1 mg p.o. twice daily prn GERD -On Famotidine for ppx Chronic back pain/arthritis -Allergic to multiple medications including ibuprofen and Tylenol, not on any pain medications at home -Consider alternative therapies if needed -PT evaluate and treat while in the hospital once patient is extubated FEN/ppx F: Free water flushes E: On ICU electrolyte protocol N: NPO except meds. RD recommends Jevity 1.5 @ 55mL/hr to provide 1980kcal, 84g of protein, and 1003mL of free water to best meet pt's updated needs -DVT ppx: Lovenox held due to hemoptysis, SCDs in place -GI ppx: Famotidine, Senna/Docusate Continue soft restraints to prevent patient from pulling out tracheostomy tube Discussed Condition With: Dr. Fraire, Dr. Archuleta (ID), Dr. Archuleta (Ict Sales Representative), Dr. House, Dr. Holcomb Discharge Planning: Pending clinical improvement
--- NOTE | 2018-09-23 07:21 | P.PNGS ---
Subjective Patient reports: pain is less (no acute issues, on vent fio2 50%) Physical Exam Vital signs: Vital Signs 09/22/18 08:00 09/22/18 09:00 09/22/18 10:00 Temperature 99.0 F Pulse Rate 86 84 77 Respiratory Rate 26 H 23 Blood Pressure 168/101 H Pulse Oximetry 96 09/22/18 10:40 09/22/18 12:00 09/22/18 12:03 Temperature 99.1 F Pulse Rate 77 75 Respiratory Rate Blood Pressure 139/79 143/77 H Pulse Oximetry 99 78 L 95 09/22/18 12:06 09/22/18 12:09 09/22/18 12:27 Temperature Pulse Rate 76 74 74 Respiratory Rate 33 H Blood Pressure 139/70 130/62 197/106 H Pulse Oximetry 97 97 98 09/22/18 12:30 09/22/18 12:32 09/22/18 12:33 Temperature Pulse Rate 73 77 75 Respiratory Rate 21 19 18 Blood Pressure 193/103 H 182/119 H 184/100 H Pulse Oximetry 98 98 98 09/22/18 12:34 09/22/18 12:35 09/22/18 12:36 Temperature Pulse Rate 72 70 69 Respiratory Rate 24 18 18 Blood Pressure 165/96 H 153/96 H 155/88 H Pulse Oximetry 99 99 100 09/22/18 12:39 09/22/18 12:40 09/22/18 12:42 Temperature Pulse Rate 68 69 69 Respiratory Rate 18 18 14 Blood Pressure 155/85 H 172/113 H Pulse Oximetry 99 94 L 98 09/22/18 12:46 09/22/18 12:48 09/22/18 12:51 Temperature Pulse Rate 68 67 69 Respiratory Rate 16 12 20 Blood Pressure 202/122 H 177/105 H 160/99 H Pulse Oximetry 98 95 94 L 09/22/18 12:54 09/22/18 12:57 09/22/18 13:00 Temperature Pulse Rate 68 67 67 Respiratory Rate 11 L 8 L 11 L Blood Pressure 148/83 H 149/81 H 144/87 H Pulse Oximetry 92 L 92 L 92 L 09/22/18 13:03 09/22/18 13:06 09/22/18 13:10 Temperature Pulse Rate 67 67 67 Respiratory Rate 11 L 13 17 Blood Pressure 143/86 H 140/76 150/80 H Pulse Oximetry 93 L 93 L 93 L 09/22/18 13:12 09/22/18 13:16 09/22/18 13:18 Temperature Pulse Rate 68 69 69 Respiratory Rate 37 H 20 12 Blood Pressure 145/82 H 142/96 H 146/102 H Pulse Oximetry 93 L 94 L 94 L 09/22/18 14:00 09/22/18 15:00 09/22/18 15:03 Temperature Pulse Rate 69 72 71 Respiratory Rate 7 L 15 Blood Pressure 131/78 130/84 Pulse Oximetry 97 97 09/22/18 15:06 09/22/18 15:09 09/22/18 15:12 Temperature Pulse Rate 71 71 70 Respiratory Rate 11 L 12 9 L Blood Pressure 118/73 118/74 119/75 Pulse Oximetry 97 98 98 09/22/18 15:15 09/22/18 15:18 09/22/18 15:21 Temperature Pulse Rate 69 69 68 Respiratory Rate 9 L 8 L 9 L Blood Pressure 114/74 113/69 114/75 Pulse Oximetry 98 98 98 09/22/18 15:24 09/22/18 15:27 09/22/18 15:30 Temperature Pulse Rate 72 68 69 Respiratory Rate 9 L 3 L 2 L Blood Pressure 112/72 120/78 116/79 Pulse Oximetry 97 97 97 09/22/18 15:33 09/22/18 15:36 09/22/18 15:39 Temperature Pulse Rate 69 74 69 Respiratory Rate 0 L 12 0 L Blood Pressure 112/76 124/84 130/81 Pulse Oximetry 98 92 L 97 09/22/18 15:42 09/22/18 15:45 09/22/18 15:48 Temperature Pulse Rate 69 69 69 Respiratory Rate 1 L 0 L 5 L Blood Pressure 129/81 128/77 129/81 Pulse Oximetry 97 97 97 09/22/18 15:51 09/22/18 15:54 09/22/18 15:57 Temperature Pulse Rate 68 68 68 Respiratory Rate 9 L 7 L 18 Blood Pressure 124/79 121/78 121/82 Pulse Oximetry 97 97 97 09/22/18 16:00 09/22/18 18:00 09/22/18 20:00 Temperature 99.2 F 99.1 F Pulse Rate 67 76 77 Respiratory Rate 18 14 Blood Pressure 120/81 Pulse Oximetry 97 95 09/22/18 21:03 02/21/19 22:00 09/23/18 00:00 Temperature 99.0 F Pulse Rate 72 75 71 Respiratory Rate 18 18 Blood Pressure 101/63 Pulse Oximetry 97 97 09/23/18 01:14 09/23/18 02:00 09/23/18 04:00 Temperature 98.9 F Pulse Rate 67 68 71 Respiratory Rate 18 22 Blood Pressure 96/63 L Pulse Oximetry 97 09/23/18 05:01 09/23/18 06:00 Temperature Pulse Rate 68 73 Respiratory Rate 18 Blood Pressure Pulse Oximetry 96 Intake & Output 09/22/18 09/23/18 09/23/18 18:59 06:59 18:59 Intake Total 1400 / 1400 1160 / 1160 Output Total 505 / 505 Balance 895 / 895 1160 / 1160 Weight 150 kg Intake: IV 600 / 600 800 / 800 Diprivan 1000 mg/100 ml Inj 1, 100 / 100 400 / 400 000 mg In 100 ml @ 5 MCG/KG/MIN 4.332 mls/hr IV.CONT TITRATE PRN Rx#:[id number] Azactam Inj 1,000 MG In NS Inj 200 / 200 100 / 100 100 ML @ 200 mls/hr IV.SIG Q8H [facility] Rx#:[id number] Zyvox 600 mg Premix 300 ML @ 300 / 300 300 / 300 300 mls/hr IV.SIG Q12H [facility] Rx#: [id number] Oral 0 / 0 Tube Feeding 0 / 0 Water Bolus Amount 300 / 300 60 / 60 Free Water Amount 300 / 300 300 / 300 Anesthesia Amount 200 / 200 Output: Urine 500 / 500 Estimated Blood Loss 5 / 5 Other: # Voids 2 # Incontinent Voids 1 Date of Last Bowel Movement 09/21/18 09/21/18 # Incontinent Bowel Movements 0 - Routine Neck Exam Present: supple (trach c/d/i) - Urinary Catheter Management Straight Cath placed during this visit: yes, but has since been removed by the nurse Reason for continuing: Not indwelling catheter Insertion date: 09/20/18 Insertion time: 02:45 Removal date: 09/20/18 Removal time: 03:00 Indwelling Urethral Catheter Cath placed during this visit: yes, but has since been removed by the nurse Reason for continuing: Not indwelling catheter Removal date: 09/19/18 Removal time: 18:00 Results - Labs 09/22/18 07:49 09/22/18 07:49 Laboratory Results - last 24 hr 09/22/18 09/22/18 09/22/18 07:49 07:49 07:49 WBC 10.4 RBC 3.44 L Hgb 9.5 L Hct 29.3 L MCV 85.1 MCH 27.5 MCHC 32.4 RDW 15.7 Plt Count 305 MPV 8.2 Neut % (Auto) 78.5 H Lymph % (Auto) 9.8 [place] % (Auto) 8.4 H Eos % (Auto) 2.7 Baso % (Auto) 0.6 Neut # (Auto) 8.2 H Lymph # (Auto) 1.0 [place] # (Auto) 0.9 Eos # (Auto) 0.3 Baso # (Auto) 0.1 WBC Differential . Differential Comment Auto diff final PT 10.7 INR 1.1 APTT 24.8 Sodium 143 Potassium 3.6 Chloride 107 Carbon Dioxide 24.6 Anion Gap 11 BUN 15 Creatinine 1.07 H Estimated GFR 52 L POC Glucose Random Glucose 145 H Calcium 8.4 L Magnesium 2.3 Nasal Screen MRSA (PCR) 09/22/18 09/22/18 09/22/18 13:09 14:30 16:58 WBC RBC Hgb Hct MCV MCH MCHC RDW Plt Count MPV Neut % (Auto) Lymph % (Auto) [place] % (Auto) Eos % (Auto) Baso % (Auto) Neut # (Auto) Lymph # (Auto) [place] # (Auto) Eos # (Auto) Baso # (Auto) WBC Differential Differential Comment PT INR APTT Sodium Potassium Chloride Carbon Dioxide Anion Gap BUN Creatinine Estimated GFR POC Glucose 106 112 H Random Glucose Calcium Magnesium Nasal Screen MRSA (PCR) Not detected 09/22/18 09/23/18 23:51 05:44 WBC RBC Hgb Hct MCV MCH MCHC RDW Plt Count MPV Neut % (Auto) Lymph % (Auto) [place] % (Auto) Eos % (Auto) Baso % (Auto) Neut # (Auto) Lymph # (Auto) [place] # (Auto) Eos # (Auto) Baso # (Auto) WBC Differential Differential Comment PT INR APTT Sodium Potassium Chloride Carbon Dioxide Anion Gap BUN Creatinine Estimated GFR POC Glucose 85 87 Random Glucose Calcium Magnesium Nasal Screen MRSA (PCR) - Imaging Imaging: ITS Impressions Abdomen/Bladder Ultrasound 09/16/18 08:29 CONCLUSION: 1. Negative renal sonogram other than right renal cyst. Chest X-Ray 09/19/18 06:00 CONCLUSION: 1. Bibasilar airspace disease with some improving aeration in the right base. 2. Stable position of life-support tubes. 3. Stable elevation of the left hemidiaphragm. Stable cardiomegaly. Abdomen/Pelvis CT 09/20/18 00:00 CONCLUSION: 1. No acute abnormality demonstrated within the abdomen or pelvis. 2. There is an area of nonspecific subcutaneous edema and induration of the left lateral flank. This could be cellulitis but is not typical of an organized abscess at this time. Chest CT 09/20/18 00:00 CONCLUSION: 1. There is elevation of left hemidiaphragm with compressive atelectasis and consolidation of the left lower lobe. 2. Patchy right upper lobe groundglass infiltrate in right lower lobe posterior basilar consolidation. Assessment and Plan - Plan s/p trach for resp failure vent dependence PLAN Wean vent trach in place will s/o reconsult if needed
--- NOTE | 2018-09-23 07:47 | P.PNID ---
Subjective Remarks: Ms. Valencia is a 63-year-old female with past medical history significant for A. fib with RVR, hypertension with history of hypertensive urgency, congestive heart failure, COPD as well as a history of depression and anxiety. Patient was admitted on September 14, 2018 evaluated in the emergency patient presented initially to [facility] ED with complaints of shortness of breath that was going on for a few weeks but in the 2-3 days prior to admission and had actually worsened. Patient also had started noticing increasing swelling of bilateral feet reportedly. As reported to others she was having difficulty lying on her side and difficulty laying flat. Patient also had reported tremors in her hands while holding objects. Patient reportedly had gained about 45 pounds in the last 3-4 months even though she has not been eating more than her U patient's survey manager is Dr. Silverman and had reduced her dose of Lasix. Patient was initially admitted under family medicine service. Per review of records it appears that she has congestive heart failure with ejection fraction of 55% in 2012. There is also reported history of essential tremors. On September 15, 2018 patient clinically deteriorated with worsening shortness of breath and was found to be obtunded and therefore critical care was consulted and patient was transferred to the ICU. Her pH was 7.17 and she was retaining CO2 and for acute hypercarbic respiratory failure patient ended up being intubated. Patient had blood cultures which are negative. Patient has sputum cultures and bronch cultures positive for MRSA. Despite being treated with IV vancomycin patient continues to have fever which is concerning either for a drug fever or possible empyema or lung abscess. Her initial influenza testing with antigen was negative. At the time of my evaluation patient remains in the ICU currently intubated. Patient has been refusing Precedex and is currently wide awake on the ventilator and CPAP trial was attempted this morning. Patient communicates by writing on a piece of paper and writes appropriate sentences some questions. Patient currently is not on any pressors has decent urine output. Patient has no rash. Overnight events reviewed. s/p trach y Appreciate Palliative care input. No fevers No rash No diarrhea Antibiotics: Azactam IV Vanco IV Lines: Lines ok Past Medical History: reviewed Allergies/Adverse Reactions: Allergies acetaminophen Allergy (Severe, Verified 09/14/18 02:45) Tachycardia, swelling Swelling lips, throat hydrocodone Allergy (Severe, Verified 09/14/18 02:45) Tachycardia, swelling Swelling lips, throat ibuprofen Allergy (Severe, Verified 09/14/18 02:45) Swelling Swelling lips, throat morphine Allergy (Severe, Verified 09/14/18 02:45) Swelling Swelling lips , throat propoxyphene Allergy (Severe, Verified 09/14/18 02:45) Swelling Swelling, lips , throat albuterol Allergy (Intermediate, Verified 09/14/18 02:45) Tachycardia amoxicillin Allergy (Unknown, Verified 09/14/18 02:45) Atrial Fibrillation codeine Allergy (Unknown, Verified 09/14/18 02:45) UNKNOWN sertraline Allergy (Unknown, Verified 09/14/18 02:45) UNKNOWN pantoprazole Adverse Reaction (Unknown, Verified 09/14/18 02:45) Nausea/Vomiting INHALERS FOR COPD (ALL) Allergy (Severe, Uncoded 09/14/18 02:45) PALPITATIONS/DIAPHORESIS VICOPROFEN Allergy (Severe, Uncoded 09/14/18 02:45) Swelling "ANY PAIN PILLS" Adverse Reaction (Severe, Uncoded 09/14/18 02:45) AFIB Objective Vital Signs 09/22/18 08:00 09/22/18 09:00 09/22/18 10:00 Temperature 99.0 F Pulse Rate 86 84 77 Respiratory Rate 26 H 23 Blood Pressure 168/101 H Pulse Oximetry 96 09/22/18 10:40 09/22/18 12:00 09/22/18 12:03 Temperature 99.1 F Pulse Rate 77 75 Respiratory Rate Blood Pressure 139/79 143/77 H Pulse Oximetry 99 78 L 95 09/22/18 12:06 09/22/18 12:09 09/22/18 12:27 Temperature Pulse Rate 76 74 74 Respiratory Rate 33 H Blood Pressure 139/70 130/62 197/106 H Pulse Oximetry 97 97 98 09/22/18 12:30 09/22/18 12:32 09/22/18 12:33 Temperature Pulse Rate 73 77 75 Respiratory Rate 21 19 18 Blood Pressure 193/103 H 182/119 H 184/100 H Pulse Oximetry 98 98 98 09/22/18 12:34 09/22/18 12:35 09/22/18 12:36 Temperature Pulse Rate 72 70 69 Respiratory Rate 24 18 18 Blood Pressure 165/96 H 153/96 H 155/88 H Pulse Oximetry 99 99 100 09/22/18 12:39 09/22/18 12:40 09/22/18 12:42 Temperature Pulse Rate 68 69 69 Respiratory Rate 18 18 14 Blood Pressure 155/85 H 172/113 H Pulse Oximetry 99 94 L 98 09/22/18 12:46 09/22/18 12:48 09/22/18 12:51 Temperature Pulse Rate 68 67 69 Respiratory Rate 16 12 20 Blood Pressure 202/122 H 177/105 H 160/99 H Pulse Oximetry 98 95 94 L 09/22/18 12:54 09/22/18 12:57 09/22/18 13:00 Temperature Pulse Rate 68 67 67 Respiratory Rate 11 L 8 L 11 L Blood Pressure 148/83 H 149/81 H 144/87 H Pulse Oximetry 92 L 92 L 92 L 09/22/18 13:03 09/22/18 13:06 09/22/18 13:10 Temperature Pulse Rate 67 67 67 Respiratory Rate 11 L 13 17 Blood Pressure 143/86 H 140/76 150/80 H Pulse Oximetry 93 L 93 L 93 L 09/22/18 13:12 09/22/18 13:16 09/22/18 13:18 Temperature Pulse Rate 68 69 69 Respiratory Rate 37 H 20 12 Blood Pressure 145/82 H 142/96 H 146/102 H Pulse Oximetry 93 L 94 L 94 L 09/22/18 14:00 09/22/18 15:00 09/22/18 15:03 Temperature Pulse Rate 69 72 71 Respiratory Rate 7 L 15 Blood Pressure 131/78 130/84 Pulse Oximetry 97 97 09/22/18 15:06 09/22/18 15:09 09/22/18 15:12 Temperature Pulse Rate 71 71 70 Respiratory Rate 11 L 12 9 L Blood Pressure 118/73 118/74 119/75 Pulse Oximetry 97 98 98 09/22/18 15:15 09/22/18 15:18 09/22/18 15:21 Temperature Pulse Rate 69 69 68 Respiratory Rate 9 L 8 L 9 L Blood Pressure 114/74 113/69 114/75 Pulse Oximetry 98 98 98 09/22/18 15:24 09/22/18 15:27 09/22/18 15:30 Temperature Pulse Rate 72 68 69 Respiratory Rate 9 L 3 L 2 L Blood Pressure 112/72 120/78 116/79 Pulse Oximetry 97 97 97 09/22/18 15:33 09/22/18 15:36 09/22/18 15:39 Temperature Pulse Rate 69 74 69 Respiratory Rate 0 L 12 0 L Blood Pressure 112/76 124/84 130/81 Pulse Oximetry 98 92 L 97 09/22/18 15:42 09/22/18 15:45 09/22/18 15:48 Temperature Pulse Rate 69 69 69 Respiratory Rate 1 L 0 L 5 L Blood Pressure 129/81 128/77 129/81 Pulse Oximetry 97 97 97 09/22/18 15:51 09/22/18 15:54 09/22/18 15:57 Temperature Pulse Rate 68 68 68 Respiratory Rate 9 L 7 L 18 Blood Pressure 124/79 121/78 121/82 Pulse Oximetry 97 97 97 09/22/18 16:00 09/22/18 18:00 09/22/18 20:00 Temperature 99.2 F 99.1 F Pulse Rate 67 76 77 Respiratory Rate 18 14 Blood Pressure 120/81 Pulse Oximetry 97 95 09/22/18 21:03 09/22/18 22:00 09/23/18 00:00 Temperature 99.0 F Pulse Rate 72 75 71 Respiratory Rate 18 18 Blood Pressure 101/63 Pulse Oximetry 97 97 09/23/18 01:14 09/23/18 02:00 09/23/18 04:00 Temperature 98.9 F Pulse Rate 67 68 71 Respiratory Rate 18 22 Blood Pressure 96/63 L Pulse Oximetry 97 09/23/18 05:01 09/23/18 06:00 Temperature Pulse Rate 68 73 Respiratory Rate 18 Blood Pressure Pulse Oximetry 96 Intake & Output 09/22/18 09/23/18 09/23/18 18:59 06:59 18:59 Intake Total 1400 / 1400 1160 / 1160 Output Total 505 / 505 Balance 895 / 895 1160 / 1160 Weight 150 kg Intake: IV 600 / 600 800 / 800 Diprivan 1000 mg/100 ml Inj 1, 100 / 100 400 / 400 000 mg In 100 ml @ 5 MCG/KG/MIN 4.332 mls/hr IV.CONT TITRATE PRN Rx#:[id number] Azactam Inj 1,000 MG In NS Inj 200 / 200 100 / 100 100 ML @ 200 mls/hr IV.SIG Q8H PABLO Rx#:[id number] Zyvox 600 mg Premix 300 ML @ 300 / 300 300 / 300 300 mls/hr IV.SIG Q12H [facility] Rx#: [id number] Oral 0 / 0 Tube Feeding 0 / 0 Water Bolus Amount 300 / 300 60 / 60 Free Water Amount 300 / 300 300 / 300 Anesthesia Amount 200 / 200 Output: Urine 500 / 500 Estimated Blood Loss 5 / 5 Other: # Voids 2 # Incontinent Voids 1 Date of Last Bowel Movement 09/21/18 09/21/18 # Incontinent Bowel Movements 0 09/17/18 16:00 Blood - Peripheral Aerobic Blood Culture - Final No growth in 5 days 09/17/18 16:00 Blood - Peripheral Anaerobic Blood Culture - Final No growth in 5 days 09/17/18 16:05 Blood - Peripheral Aerobic Blood Culture - Final No growth in 5 days 09/17/18 16:05 Blood - Peripheral Anaerobic Blood Culture - Final No growth in 5 days 09/18/18 13:00 Bronchial - Right Middle Lobe Gram Stain - Final 09/18/18 13:00 Bronchial - Right Middle Lobe Bronchial Culture - Final S. aureus MRSA 09/18/18 11:10 Sputum - Endotracheal Gram Stain - Final 09/18/18 11:10 Sputum - Endotracheal Sputum Culture - Final S. aureus MRSA Lab - Hematology Results 09/21/18 09/22/18 06:29 07:49 WBC 11.1 H 10.4 RBC 2.95 L 3.44 L Hgb 8.1 L 9.5 L Hct 25.1 L 29.3 L MCV 85.0 85.1 MCH 27.4 27.5 MCHC 32.2 32.4 RDW 15.8 15.7 Plt Count 253 305 MPV 8.5 8.2 Neut % (Auto) 73.4 H 78.5 H Lymph % (Auto) 11.3 9.8 [place] % (Auto) 9.6 H 8.4 H Eos % (Auto) 5.3 H 2.7 Baso % (Auto) 0.4 0.6 Neut # (Auto) 8.1 H 8.2 H Lymph # (Auto) 1.3 1.0 [place] # (Auto) 1.1 H 0.9 Eos # (Auto) 0.6 H 0.3 Baso # (Auto) 0.0 0.1 WBC Differential . . Differential Comment Auto diff final Auto diff final Lab - Chemistry Results 09/21/18 09/21/18 09/21/18 06:29 12:00 17:13 Sodium 141 Potassium 3.3 L Chloride 106 Carbon Dioxide 25.3 Anion Gap 10 BUN 16 Creatinine 1.05 H Estimated GFR 53 L POC Glucose 102 125 H Random Glucose 103 Calcium 8.1 L Magnesium 2.2 09/22/18 09/22/18 09/22/18 00:29 06:36 07:49 Sodium 143 Potassium 3.6 Chloride 107 Carbon Dioxide 24.6 Anion Gap 11 BUN 15 Creatinine 1.07 H Estimated GFR 52 L POC Glucose 109 111 H Random Glucose 145 H Calcium 8.4 L Magnesium 2.3 09/22/18 09/22/18 09/22/18 13:09 16:58 23:51 Sodium Potassium Chloride Carbon Dioxide Anion Gap BUN Creatinine Estimated GFR POC Glucose 106 112 H 85 Random Glucose Calcium Magnesium 09/23/18 05:44 Sodium Potassium Chloride Carbon Dioxide Anion Gap BUN Creatinine Estimated GFR POC Glucose 87 Random Glucose Calcium Magnesium Imaging: ITS Impressions Abdomen/Bladder Ultrasound 09/16/18 08:29 CONCLUSION: 1. Negative renal sonogram other than right renal cyst. Chest X-Ray 09/19/18 06:00 CONCLUSION: 1. Bibasilar airspace disease with some improving aeration in the right base. 2. Stable position of life-support tubes. 3. Stable elevation of the left hemidiaphragm. Stable cardiomegaly. Abdomen/Pelvis CT 09/20/18 00:00 CONCLUSION: 1. No acute abnormality demonstrated within the abdomen or pelvis. 2. There is an area of nonspecific subcutaneous edema and induration of the left lateral flank. This could be cellulitis but is not typical of an organized abscess at this time. Chest CT 09/20/18 00:00 CONCLUSION: 1. There is elevation of left hemidiaphragm with compressive atelectasis and consolidation of the left lower lobe. 2. Patchy right upper lobe groundglass infiltrate in right lower lobe posterior basilar consolidation. Physical Exam: GENERAL: Morbidly obese, awake on the vent, large neck. SKIN: Cool and dry, no generalized rash HEAD: Atraumatic. Normocephalic. No temporal or scalp tenderness. EYES: Pupils equal round and reactive. Scleral icterus. No injection or drainage. No petechia ENNT: Trach site ok. Supple, nontender, no meningeal signs. CARDIOVASCULAR: HS audible. RESPIRATORY: Air entry equal bilaterally. Clear to auscultation bilaterally. GASTROINTESTINAL: Abdomen soft,NT MUSCULOSKELETAL: Extremities without clubbing, cyanosis. NEUROLOGICAL: Sedated Psych could not be assessed Skin folds with no evidence of infection. IV line sites ok. Assessment and Plan - Plan MRSA pneumonia rule out empyema or lung abscess Acute respiratory failure on vent,hypercarbic respiratory failure Morbid obesity History of sleep apnea was on CPAP has not been compliant History of congestive heart failure with EF of 55% History of A. fib Recommendations Continue Azactam IV Continue Zyvox IV No new fevers WBC mildly elevated no change in clinical status clinically appears stable. Follow bronc cultures Follow clinical course Case discussed with PARAG DOMINGUEZ and : given SCC on bronch path consider Oncology consult Case discussed with YULIANA
[2018-09-23] MEDS: Mupirocin 2% Nasal Oint Topical Syringe EACH NARE SCH (07:59)
[2018-09-23] MEDS: Famotidine PF Inj 20 MG/2 ML Vial IV.PUSH SCH (08:00)
[2018-09-23] MEDS: Simethicone 125 MG Chew Tablet PO SCH (08:01)
[2018-09-23] MEDS: Senna/Docusate Sodium 8.6/50 MG Tablet PO SCH (08:01)
[2018-09-23] MEDS: hydrALAZINE 10 MG Tablet PO SCH (08:01)
[2018-09-23] MEDS: Chlorhexidine 0.12% Oral Kit 15 ML UDC OROPHARYNG SCH (08:02)
[2018-09-23] MEDS: LORazepam 0.5 MG Tablet NG/OG PRN (08:48)
--- NOTE | 2018-09-23 10:21 | P.PNCC ---
Subjective Subjective Remarks/Hospital Course: This is a 63-year-old female. Date of admission 09/14/2018. Date of consultation 09/15/2018. Past medical history includes paroxysmal atrial fibrillation currently normal sinus rhythm, elevated BMI, congestive heart failure with last documented ejection fraction 55% 2012, COPD, hypertension, left bundle branch block essential tremors. Patient originally planned to [employer] [facility] on 09/14/2018 with worsening shortness of breath slowly on coming over the past couple weeks. She also noticed increasing bilateral lower extremity edema. Per documentation, patient recently saw her baseball glove shaper Dr. Silverman on Wednesday who asked her to drink as much fluid and juice as she possibly could and reduce her dose of Lasix from 20 mg twice a day to once a day. During current hospitalization, patient resume home medications of enalapril, furosemide, metoprolol and hydralazine. Patient seen by cardiology and pulmonology. Refusing to be from central sleep apnea. Currently on ipratropium aerosols every [address] House. Seen by Dr. Chew. Switch to sotalol 80 mg twice daily and diuresis furosemide 40 mg IV twice daily. This morning, patient was found obtunded. PH was 7.17. Retaining CO2. Transfer to ICU and intubated using 20 mg etomidate. 09/16: No acute distress on mechanical ventilation. Arousable but not following commands. Tolerating tube feeding. Decreased urine output. Will Place Coello catheter to monitor accurate I's and O's 09/17: Failed extubation yesterday after 20 minutes. Extremely anxious. Currently on low-dose dexmedetomidine drip and bradycardic. Tube feeds restarted. Urine output has increased. 09/18: Some hemoptysis overnight. Enoxaparin held. Currently on CPAP trials at 40%. Started on vancomycin and aztreonam for fevers. Arousable and follows commands 09/19: Patient failed trial of extubation again yesterday, required bronchoscopy due to bloody secretions from ETT but no active bleeding was seen. 09/20: General surgery consulted for tracheostomy, patient was agreeable when I spoke with her yesterday but her daughter was hesitant. Awaiting their decision. The patient's sputum cultures are positive for MRSA, will consult ID. The patient wrote on a piece of paper to me that she is having hallucinations from precedex. She is requesting that I discontinue this medication. 09/21: No overnight events. Patient became tachypneic and appeared anxious and distressed when I briefly attempted to switch her to spontaneous breathing trial , placed back on AC. Tentatively planned for tracheostomy tomorrow. 09/22: Awake and alert. Remains orally intubated on mechanical ventilation. Awaiting tracheostomy. 09/23: Awake and alert despite being on propofol. Gets anxious. Status post tracheostomy yesterday. Started CPAP trials. Tolerating tube feeds via NG tube Objective Vital Signs / I&O: Vital Signs 09/22/18 10:40 09/22/18 12:00 09/22/18 12:03 Temperature 99.1 F Pulse Rate 77 75 Respiratory Rate Blood Pressure 139/79 143/77 H Pulse Oximetry 99 78 L 95 09/22/18 12:06 09/22/18 12:09 09/22/18 12:27 Temperature Pulse Rate 76 74 74 Respiratory Rate 33 H Blood Pressure 139/70 130/62 197/106 H Pulse Oximetry 97 97 98 09/22/18 12:30 09/22/18 12:32 09/22/18 12:33 Temperature Pulse Rate 73 77 75 Respiratory Rate 21 19 18 Blood Pressure 193/103 H 182/119 H 184/100 H Pulse Oximetry 98 98 98 09/22/18 12:34 09/22/18 12:35 09/22/18 12:36 Temperature Pulse Rate 72 70 69 Respiratory Rate 24 18 18 Blood Pressure 165/96 H 153/96 H 155/88 H Pulse Oximetry 99 99 100 09/22/18 12:39 09/22/18 12:40 09/22/18 12:42 Temperature Pulse Rate 68 69 69 Respiratory Rate 18 18 14 Blood Pressure 155/85 H 172/113 H Pulse Oximetry 99 94 L 98 09/22/18 12:46 09/22/18 12:48 09/22/18 12:51 Temperature Pulse Rate 68 67 69 Respiratory Rate 16 12 20 Blood Pressure 202/122 H 177/105 H 160/99 H Pulse Oximetry 98 95 94 L 09/22/18 12:54 09/22/18 12:57 09/22/18 13:00 Temperature Pulse Rate 68 67 67 Respiratory Rate 11 L 8 L 11 L Blood Pressure 148/83 H 149/81 H 144/87 H Pulse Oximetry 92 L 92 L 92 L 09/22/18 13:03 09/22/18 13:06 09/22/18 13:10 Temperature Pulse Rate 67 67 67 Respiratory Rate 11 L 13 17 Blood Pressure 143/86 H 140/76 150/80 H Pulse Oximetry 93 L 93 L 93 L 09/22/18 13:12 09/22/18 13:16 09/22/18 13:18 Temperature Pulse Rate 68 69 69 Respiratory Rate 37 H 20 12 Blood Pressure 145/82 H 142/96 H 146/102 H Pulse Oximetry 93 L 94 L 94 L 09/22/18 14:00 09/22/18 15:00 09/22/18 15:03 Temperature Pulse Rate 69 72 71 Respiratory Rate 7 L 15 Blood Pressure 131/78 130/84 Pulse Oximetry 97 97 09/22/18 15:06 09/22/18 15:09 09/22/18 15:12 Temperature Pulse Rate 71 71 70 Respiratory Rate 11 L 12 9 L Blood Pressure 118/73 118/74 119/75 Pulse Oximetry 97 98 98 09/22/18 15:15 09/22/18 15:18 09/22/18 15:21 Temperature Pulse Rate 69 69 68 Respiratory Rate 9 L 8 L 9 L Blood Pressure 114/74 113/69 114/75 Pulse Oximetry 98 98 98 09/22/18 15:24 09/22/18 15:27 09/22/18 15:30 Temperature Pulse Rate 72 68 69 Respiratory Rate 9 L 3 L 2 L Blood Pressure 112/72 120/78 116/79 Pulse Oximetry 97 97 97 09/22/18 15:33 09/22/18 15:36 09/22/18 15:39 Temperature Pulse Rate 69 74 69 Respiratory Rate 0 L 12 0 L Blood Pressure 112/76 124/84 130/81 Pulse Oximetry 98 92 L 97 09/22/18 15:42 09/22/18 15:45 09/22/18 15:48 Temperature Pulse Rate 69 69 69 Respiratory Rate 1 L 0 L 5 L Blood Pressure 129/81 128/77 129/81 Pulse Oximetry 97 97 97 09/22/18 15:51 09/22/18 15:54 09/22/18 15:57 Temperature Pulse Rate 68 68 68 Respiratory Rate 9 L 7 L 18 Blood Pressure 124/79 121/78 121/82 Pulse Oximetry 97 97 97 09/22/18 16:00 09/22/18 18:00 09/22/18 20:00 Temperature 99.2 F 99.1 F Pulse Rate 67 76 77 Respiratory Rate 18 14 Blood Pressure 120/81 Pulse Oximetry 97 95 09/22/18 21:03 09/22/18 22:00 09/23/18 00:00 Temperature 99.0 F Pulse Rate 72 75 71 Respiratory Rate 18 18 Blood Pressure 101/63 Pulse Oximetry 97 97 09/23/18 01:14 09/23/18 02:00 09/23/18 04:00 Temperature 98.9 F Pulse Rate 67 68 71 Respiratory Rate 18 22 Blood Pressure 96/63 L Pulse Oximetry 97 09/23/18 05:01 09/23/18 06:00 09/23/18 08:00 Temperature 99.2 F Pulse Rate 68 73 69 Respiratory Rate 18 17 Blood Pressure 107/62 Pulse Oximetry 96 97 09/23/18 08:16 09/23/18 08:30 09/23/18 08:46 Temperature Pulse Rate 69 72 70 Respiratory Rate 24 17 8 L Blood Pressure 130/58 L 138/60 120/58 L Pulse Oximetry 97 95 95 09/23/18 09:00 09/23/18 09:15 09/23/18 09:28 Temperature Pulse Rate 68 70 72 Respiratory Rate 6 L 21 32 H Blood Pressure 114/68 115/64 Pulse Oximetry 88 L 80 L 96 09/23/18 09:30 09/23/18 10:00 Temperature Pulse Rate 69 70 Respiratory Rate 12 Blood Pressure 115/61 Pulse Oximetry Intake & Output 09/22/18 09/23/18 09/23/18 18:59 06:59 18:59 Intake Total 1400 / 1400 1160 / 1160 100 / 100 Output Total 505 / 505 Balance 895 / 895 1160 / 1160 100 / 100 Weight 150 kg Intake: IV 600 / 600 800 / 800 100 / 100 Diprivan 1000 mg/100 ml Inj 1, 100 / 100 400 / 400 100 / 100 000 mg In 100 ml @ 5 MCG/KG/MIN 4.332 mls/hr IV.CONT TITRATE PRN Rx#:[id number] Azactam Inj 1,000 MG In NS Inj 200 / 200 100 / 100 100 ML @ 200 mls/hr IV.SIG Q8H PABLO Rx#:[id number] Zyvox 600 mg Premix 300 ML @ 300 / 300 300 / 300 300 mls/hr IV.SIG Q12H PABLO Rx#: [id number] Oral 0 / 0 Tube Feeding 0 / 0 Water Bolus Amount 300 / 300 60 / 60 Free Water Amount 300 / 300 300 / 300 Anesthesia Amount 200 / 200 Output: Urine 500 / 500 Estimated Blood Loss 5 / 5 Other: # Voids 2 # Incontinent Voids 1 Date of Last Bowel Movement 09/21/18 09/21/18 09/21/18 # Incontinent Bowel Movements 0 Result Diagrams: 09/22/18 07:49 09/22/18 07:49 Objective Remarks: GENERAL: awake and alert SKIN: No rashes or lesions HEAD: NCAT EYES: PERRL ENT: Mucous membranes pink and moist. NECK: Tracheostomy in place CARDIOVASCULAR: Regular rate and rhythm RESPIRATORY: Diminished breath sounds due to body habitus, secretions thick but not bloody GASTROINTESTINAL: Abdomen soft, non-tender, obese MUSCULOSKELETAL: Trace nonpitting bilateral lower extremity edema NEUROLOGICAL: RASS 0, awake and alert, nods/ shakes head appropriately to yes/ no questions Assessment and Plan - Assessment and Plan Plan: 63yF presenting with acute hypoxic respiratory failure and failed attempt at extubation x 2 Neuro/Psych: Anxiety disorder Chronic benzodiazepine use Propofol/fentanyl for light sedation, goal RASS -1 PRN ativan for breakthrough anxiety Acetaminophen allergy documented CV: Paroxysmal atrial fibrillation currently normal sinus rhythm Congestive heart failure unknown etiology. Last echocardiogram EF 50-55% Elevated HDL Followed by cardiology Sotalol 80 mg twice daily started by cardiology several days ago, hold home dose of metoprolol/ hydralazine Currently holding enalapril 20 mg daily in light of hypotension and acute kidney injury Echocardiogram: 09/06/12 - ejection fraction of 50-55% with normal wall motion Myocardial perfusion scan: 09/07/12 - slight ischemia in the LAD distribution with an ejection fraction of 60 Diurese as detailed below Resp: Acute respiratory failure with CO2 retention Obstructive sleep apnea -untreated Previous diagnosis of COPD Obesity hypoventilation syndrome Hemoptysis Bronchoscopy(09/19) with atypical cells on cell block suspicious for squamous cell carcinoma Last PFT showed mild restrictive lung disease. No obstructive component Followed by pulmonology Currently ipratropium aerosols every 4 hours scheduled Pharmacologic prophylaxis held due to hemoptysis, no source of bleeding noted on bronch 2/17 Tracheostomy done on 09/22 -Dr. House following for pulmonary-to decide further management for suspicious squamous cell carcinoma on bronchoscopy cell block specimen GI: Gastroesophageal reflux disease Tube feeds- vital high-protein at 65 cc an hour. Will require PEG tube placement Famotidine for GI prophylaxis Docusate sodium/senna 1 tablet twice daily for bowel regimen : No indication for Coello Endo: Acute hyperglycemia Sliding scale insulin Accu-Cheks to maintain euglycemia aspart insulin every 6 hours, better controlled on medium algorithm Renal: Acute kidney injury- improving Status post Bumex 09/21 CHAPIS inhibitor discontinued due to KIKE, still on hold as BP is 100s-110s systolic Monitor urine output Accurate I's and O's Renal ultrasound only remarkable for incidental renal cyst; urine eosinophils, sodium and creatinine unremarkable Avoid nephrotoxic medications Heme: Leukocytosis Normocytic anemia Suspicious squamous cell carcinoma on cell block of bronchoscopy specimen No indication for transfusion of blood products at this time. Monitor CBC daily. Hemoptysis appears to have stopped at this point. Oncology consult for further evaluation of abnormal biopsy from bronchoscopy suspicious for squamous cell carcinoma. ID: 09/15 sputum negative for influenza A and B No growth to date blood cultures x2 09/17 09/18 sputum culture positive for MRSA Empirically started on vancomycin and aztreonam for MRSA pneumonia, day #4 09/18 * ID consulted(Dr. Arcuhleta), vanco discontinued and patient was started on Zyvox. D/C aztreonam? Will defer to ID FEN: Hypernatremia Replace electrolytes as clinically indicated per ICU electrolyte protocol Continue free water flushes MSK: Elevated BMI Chronic low back pain Weight loss encouraged PT evaluate and treat Access -Utilize peripheral IV Prophylaxis -GI -famotidine -DVT -SCD/enoxaparin currently on hold due to hemoptysis and planned procedures. Will restart subcu Lovenox when okay with pulmonary and surgery. OVERALL: This patient remains critically ill but stable. She requires continued ICU level of care. Discussed with rn family, discussed with ID, discussed with MAINTENANCE ADVISOR.
[2018-09-23] MEDS: QUEtiapine 100 MG Tablet PO SCH (11:15)
--- NOTE | 2018-09-23 13:28 | P.PNPAL ---
Reason for Visit Reason for visit: a. To assist with evaluation and management of symptoms including: dyspnea, debility b. To assist medical decision maker(s) with: better understanding of current medical conditions; weighing benefits/burdens of medical treatment options; making medical treatment decisions. Subjective Subjective/Interval History: Follow up visit for symptom management of dyspnea and debility. Patient seen and assessed in room 525. No family present; discussed patient with RN (Susan). Patient remains mechanically ventilated status post tracheotomy placement yesterday 09/22/18, tolerating spontaneous breathing trials. Having some episodes of hypotension with systolic pressures in the 80s. Pulmonology (Dr. House) following. Lethargic. She arouses to verbal stimuli, attempting to mouth words. Follow-up chest x-ray on 09/18/2018 showed slight interval worsening in aeration ; started on empirically on Vancomycin and Azactam. Sputum cultures positive for MRSA. ID (Dr. Josefina Archuleta) was consulted; Vancomycin was discontinued and patient was started on Zyvox. Remains on Azactam. No new fevers. Leukocytosis resolved. Oncology consult pending for further evaluation of atypical cells from bronchoscopy suspicious for squamous cell carcinoma. Family/Friend Interactions: No family present at the time of examination. Objective Vital Signs: Vital Signs 09/22/18 13:03 09/22/18 13:06 09/22/18 13:10 Temperature Pulse Rate 67 67 67 Respiratory Rate 11 L 13 17 Blood Pressure 143/86 H 140/76 150/80 H Pulse Oximetry 93 L 93 L 93 L 09/22/18 13:12 09/22/18 13:16 09/22/18 13:18 Temperature Pulse Rate 68 69 69 Respiratory Rate 37 H 20 12 Blood Pressure 145/82 H 142/96 H 146/102 H Pulse Oximetry 93 L 94 L 94 L 09/22/18 14:00 09/22/18 15:00 09/22/18 15:03 Temperature Pulse Rate 69 72 71 Respiratory Rate 7 L 15 Blood Pressure 131/78 130/84 Pulse Oximetry 97 97 09/22/18 15:06 09/22/18 15:09 09/22/18 15:12 Temperature Pulse Rate 71 71 70 Respiratory Rate 11 L 12 9 L Blood Pressure 118/73 118/74 119/75 Pulse Oximetry 97 98 98 09/22/18 15:15 09/22/18 15:18 09/22/18 15:21 Temperature Pulse Rate 69 69 68 Respiratory Rate 9 L 8 L 9 L Blood Pressure 114/74 113/69 114/75 Pulse Oximetry 98 98 98 09/22/18 15:24 09/22/18 15:27 09/22/18 15:30 Temperature Pulse Rate 72 68 69 Respiratory Rate 9 L 3 L 2 L Blood Pressure 112/72 120/78 116/79 Pulse Oximetry 97 97 97 09/22/18 15:33 09/22/18 15:36 09/22/18 15:39 Temperature Pulse Rate 69 74 69 Respiratory Rate 0 L 12 0 L Blood Pressure 112/76 124/84 130/81 Pulse Oximetry 98 92 L 97 09/22/18 15:42 09/22/18 15:45 09/22/18 15:48 Temperature Pulse Rate 69 69 69 Respiratory Rate 1 L 0 L 5 L Blood Pressure 129/81 128/77 129/81 Pulse Oximetry 97 97 97 09/22/18 15:51 09/22/18 15:54 09/22/18 15:57 Temperature Pulse Rate 68 68 68 Respiratory Rate 9 L 7 L 18 Blood Pressure 124/79 121/78 121/82 Pulse Oximetry 97 97 97 09/22/18 16:00 09/22/18 18:00 09/22/18 20:00 Temperature 99.2 F 99.1 F Pulse Rate 67 76 77 Respiratory Rate 18 14 Blood Pressure 120/81 Pulse Oximetry 97 95 09/22/18 21:03 09/22/18 22:00 09/23/18 00:00 Temperature 99.0 F Pulse Rate 72 75 71 Respiratory Rate 18 18 Blood Pressure 101/63 Pulse Oximetry 97 97 09/23/18 01:14 09/23/18 02:00 09/23/18 04:00 Temperature 98.9 F Pulse Rate 67 68 71 Respiratory Rate 18 22 Blood Pressure 96/63 L Pulse Oximetry 97 09/23/18 05:01 09/23/18 06:00 09/23/18 08:00 Temperature 99.2 F Pulse Rate 68 73 69 Respiratory Rate 18 17 Blood Pressure 107/62 Pulse Oximetry 96 97 09/23/18 08:16 09/23/18 08:30 09/23/18 08:46 Temperature Pulse Rate 69 72 70 Respiratory Rate 24 17 8 L Blood Pressure 130/58 L 138/60 120/58 L Pulse Oximetry 97 95 95 09/23/18 09:00 09/23/18 09:15 09/23/18 09:28 Temperature Pulse Rate 68 70 72 Respiratory Rate 6 L 21 32 H Blood Pressure 114/68 115/64 Pulse Oximetry 88 L 80 L 96 09/23/18 09:30 09/23/18 09:45 09/23/18 10:00 Temperature Pulse Rate 69 69 70 Respiratory Rate 12 4 L 9 L Blood Pressure 115/61 114/60 118/69 Pulse Oximetry 94 L 95 09/23/18 10:15 09/23/18 10:30 09/23/18 10:45 Temperature Pulse Rate 69 69 68 Respiratory Rate 11 L 19 7 L Blood Pressure 112/68 106/68 104/66 Pulse Oximetry 96 88 L 95 09/23/18 11:00 09/23/18 11:15 09/23/18 11:30 Temperature Pulse Rate 67 66 71 Respiratory Rate 9 L 9 L 7 L Blood Pressure 99/61 L 98/62 L 97/59 L Pulse Oximetry 77 L 78 L 82 L 09/23/18 11:45 09/23/18 11:56 09/23/18 12:00 Temperature 99.0 F Pulse Rate 74 73 73 Respiratory Rate 11 L 6 L 2 L Blood Pressure 88/56 L 86/54 L Pulse Oximetry 91 L 81 L 83 L 09/23/18 12:01 Temperature Pulse Rate 74 Respiratory Rate 17 Blood Pressure 111/61 Pulse Oximetry 82 L Intake & Output 09/22/18 09/23/18 09/23/18 18:59 06:59 18:59 Intake Total 1400 / 1400 1160 / 1160 300 / 300 Output Total 505 / 505 Balance 895 / 895 1160 / 1160 300 / 300 Weight 150 kg Intake: IV 600 / 600 800 / 800 200 / 200 Diprivan 1000 mg/100 ml Inj 1, 100 / 100 400 / 400 100 / 100 000 mg In 100 ml @ 5 MCG/KG/MIN 4.332 mls/hr IV.CONT TITRATE PRN Rx#:[id number] Azactam Inj 1,000 MG In NS Inj 200 / 200 100 / 100 100 / 100 100 ML @ 200 mls/hr IV.SIG Q8H PABLO Rx#:[id number] Zyvox 600 mg Premix 300 ML @ 300 / 300 300 / 300 300 mls/hr IV.SIG Q12H [facility] Rx#: [id number] Oral 0 / 0 Tube Feeding 0 / 0 Water Bolus Amount 300 / 300 60 / 60 Free Water Amount 300 / 300 300 / 300 100 / 100 Anesthesia Amount 200 / 200 Output: Urine 500 / 500 Estimated Blood Loss 5 / 5 Other: # Voids 2 # Incontinent Voids 1 Date of Last Bowel Movement 09/21/18 09/21/18 09/21/18 # Incontinent Bowel Movements 0 Physical Exam: CONSTITUTIONAL/GENERAL: This is a morbidly obese female status post tracheostomy placement in no acute distress. TUBES/LINES/DRAINS: Tracheostomy, NGT, PIV, SCDs SKIN: No jaundice, rashes, or lesions. Ecchymoses on upper extremities. No wounds visualized anteriorly. Skin temperature appropriate. Not diaphoretic. HEAD: Atraumatic. Normocephalic. EYES: Pupils equal and round and reactive. Extraocular motions intact. No scleral icterus. No injection or drainage. Fundi not examined. ENT: Nose without bleeding or purulent drainage. Mucous membranes moist and pink. NECK: Trachea midline. CARDIOVASCULAR: Regular rate and rhythm without murmurs, gallops, or rubs. No JVD. Peripheral pulses symmetric. RESPIRATORY/CHEST: Status post tracheostomy, started CPAP trials. Diminished breath sounds throughout likely related to body habitus. GASTROINTESTINAL: Abdomen soft, non-tender. Obese. Tolerating tube feedings MUSCULOSKELETAL: Extremities without clubbing, cyanosis or mottling. Trace bilateral lower extremity edema LYMPHATICS: No palpable cervical or supraclavicular adenopathy. NEUROLOGICAL: Arouse to verbal stimuli. Lethargic. Attempting to mouth words. PSYCHIATRIC: No overt anxiety/depression Diagnostic Tests Laboratory: Laboratory Results - last 72 hr 09/20/18 09/21/18 09/21/18 17:58 00:54 05:45 WBC RBC Hgb Hct MCV MCH MCHC RDW Plt Count MPV Neut % (Auto) Lymph % (Auto) Callahan % (Auto) Eos % (Auto) Baso % (Auto) Neut # (Auto) Lymph # (Auto) Callahan # (Auto) Eos # (Auto) Baso # (Auto) WBC Differential Differential Comment PT INR APTT Sodium Potassium Chloride Carbon Dioxide Anion Gap BUN Creatinine Estimated GFR POC Glucose 104 90 105 Random Glucose Calcium Magnesium Nasal Screen MRSA (PCR) 09/21/18 09/21/18 09/21/18 06:29 06:29 12:00 WBC 11.1 H RBC 2.95 L Hgb 8.1 L Hct 25.1 L MCV 85.0 MCH 27.4 MCHC 32.2 RDW 15.8 Plt Count 253 MPV 8.5 Neut % (Auto) 73.4 H Lymph % (Auto) 11.3 Callahan % (Auto) 9.6 H Eos % (Auto) 5.3 H Baso % (Auto) 0.4 Neut # (Auto) 8.1 H Lymph # (Auto) 1.3 Callahan # (Auto) 1.1 H Eos # (Auto) 0.6 H Baso # (Auto) 0.0 WBC Differential . Differential Comment Auto diff final PT INR APTT Sodium 141 Potassium 3.3 L Chloride 106 Carbon Dioxide 25.3 Anion Gap 10 BUN 16 Creatinine 1.05 H Estimated GFR 53 L POC Glucose 102 Random Glucose 103 Calcium 8.1 L Magnesium 2.2 Nasal Screen MRSA (PCR) 09/21/18 09/22/18 09/22/18 17:13 00:29 06:36 WBC RBC Hgb Hct MCV MCH MCHC RDW Plt Count MPV Neut % (Auto) Lymph % (Auto) Callahan % (Auto) Eos % (Auto) Baso % (Auto) Neut # (Auto) Lymph # (Auto) Callahan # (Auto) Eos # (Auto) Baso # (Auto) WBC Differential Differential Comment PT INR APTT Sodium Potassium Chloride Carbon Dioxide Anion Gap BUN Creatinine Estimated GFR POC Glucose 125 H 109 111 H Random Glucose Calcium Magnesium Nasal Screen MRSA (PCR) 09/22/18 09/22/18 09/22/18 07:49 07:49 07:49 WBC 10.4 RBC 3.44 L Hgb 9.5 L Hct 29.3 L MCV 85.1 MCH 27.5 MCHC 32.4 RDW 15.7 Plt Count 305 MPV 8.2 Neut % (Auto) 78.5 H Lymph % (Auto) 9.8 Callahan % (Auto) 8.4 H Eos % (Auto) 2.7 Baso % (Auto) 0.6 Neut # (Auto) 8.2 H Lymph # (Auto) 1.0 Callahan # (Auto) 0.9 Eos # (Auto) 0.3 Baso # (Auto) 0.1 WBC Differential . Differential Comment Auto diff final PT 10.7 INR 1.1 APTT 24.8 Sodium 143 Potassium 3.6 Chloride 107 Carbon Dioxide 24.6 Anion Gap 11 BUN 15 Creatinine 1.07 H Estimated GFR 52 L POC Glucose Random Glucose 145 H Calcium 8.4 L Magnesium 2.3 Nasal Screen MRSA (PCR) 09/22/18 09/22/18 09/22/18 13:09 14:30 16:58 WBC RBC Hgb Hct MCV MCH MCHC RDW Plt Count MPV Neut % (Auto) Lymph % (Auto) Callahan % (Auto) Eos % (Auto) Baso % (Auto) Neut # (Auto) Lymph # (Auto) Callahan # (Auto) Eos # (Auto) Baso # (Auto) WBC Differential Differential Comment PT INR APTT Sodium Potassium Chloride Carbon Dioxide Anion Gap BUN Creatinine Estimated GFR POC Glucose 106 112 H Random Glucose Calcium Magnesium Nasal Screen MRSA (PCR) Not detected 09/22/18 09/23/18 09/23/18 23:51 05:44 11:19 WBC RBC Hgb Hct MCV MCH MCHC RDW Plt Count MPV Neut % (Auto) Lymph % (Auto) Callahan % (Auto) Eos % (Auto) Baso % (Auto) Neut # (Auto) Lymph # (Auto) Callahan # (Auto) Eos # (Auto) Baso # (Auto) WBC Differential Differential Comment PT INR APTT Sodium Potassium Chloride Carbon Dioxide Anion Gap BUN Creatinine Estimated GFR POC Glucose 85 87 94 Random Glucose Calcium Magnesium Nasal Screen MRSA (PCR) Result Diagrams: 09/22/18 07:49 09/22/18 07:49 Microbiology: Microbiology 09/17/18 16:00 Aerobic Blood Culture - Final Blood - Peripheral No growth in 5 days Anaerobic Blood Culture - Final No growth in 5 days 09/17/18 16:05 Aerobic Blood Culture - Final Blood - Peripheral No growth in 5 days Anaerobic Blood Culture - Final No growth in 5 days 09/18/18 13:00 Gram Stain - Final Bronchial - Right Middle Lobe Bronchial Culture - Final S. aureus MRSA 09/18/18 11:10 Gram Stain - Final Sputum - Endotracheal Sputum Culture - Final S. aureus MRSA Imaging: Abdomen/Bladder Ultrasound 09/16/18 08:29 CONCLUSION: 1. Negative renal sonogram other than right renal cyst. Chest X-Ray 09/19/18 06:00 CONCLUSION: 1. Bibasilar airspace disease with some improving aeration in the right base. 2. Stable position of life-support tubes. 3. Stable elevation of the left hemidiaphragm. Stable cardiomegaly. Abdomen/Pelvis CT 09/20/18 00:00 CONCLUSION: 1. No acute abnormality demonstrated within the abdomen or pelvis. 2. There is an area of nonspecific subcutaneous edema and induration of the left lateral flank. This could be cellulitis but is not typical of an organized abscess at this time. Chest CT 09/20/18 00:00 CONCLUSION: 1. There is elevation of left hemidiaphragm with compressive atelectasis and consolidation of the left lower lobe. 2. Patchy right upper lobe groundglass infiltrate in right lower lobe posterior basilar consolidation. Procedures: 09/15/2018: Intubation 09/16/2018: Extubation 09/17/2018: Reintubation 09/18/2018: Extubation; bronchoscopy with reintubation 09/22/2018: Tracheostomy Assessment and Plan - Disease Oriented Problem List (1) CHF exacerbation (2) Hypertension (3) COPD (chronic obstructive pulmonary disease) (4) RAD (obstructive sleep apnea) (5) GERD (gastroesophageal reflux disease) (6) Afib (7) Anxiety (8) Acute respiratory failure (9) Pickwickian syndrome (10) Acute renal failure (11) Paroxysmal atrial fibrillation (12) MRSA pneumonia Pertinent Non-Medical Issues: Psychosocial: Patient was born and raised in [place]. She was ; her ex- is now . 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 Patient has 1 daughter, Riya ( to Yasemin). She has 2 granddaughters ages 22 and 17 (Krystal and Niki). Spiritual: Buddhist zuleima Legal: Per [place] statutes, in the absence of written advanced directives healthcare proxy decision making falls to the patient's daughter (Riya). Ethical issues impacting care: No known ethical issues impacting care at this time. . Important Contacts: Riya Valencia, daughter: [phone] Prognosis: Patient is a morbidly obese 63-year-old female with multiple comorbidities status post tracheostomy. She remains critically ill but stable requiring ICU level of care. Condition guarded. Code Status: Full Code Plan: * FULL CODE * Decision making: Per [place] statutes, in the absence of written advanced directives healthcare proxy decision making falls to the patient's daughter ( Riya) * Discussed patient with RN (Susan) * AGGRESSIVE GOALS * Oncology consult pending for further evaluation of atypical cells from bronchoscopy suspicious for squamous cell carcinoma. * Symptom management: Debility: Patient is debilitated at baseline secondary to multiple comorbid conditions: Sleep apnea, CHF, COPD (on home oxygen), hypertension, morbid obesity and atrial fibrillation. Status post tracheostomy for multiple failed extubation trials. Patient will likely need placement at discharge. Dyspnea: Patient with a history of COPD, RAD and congestive heart failure. CT chest on 09/20/2018 showed elevation in the left hemidiaphragm with compressive atelectasis and consolidation of the left lower lobe. Patchy right upper lobe groundless infiltrate on the right lower lobe posterior basilar validation. Pathology findings suspicious for squamous cell carcinoma on bronchoscopy cell block specimen. Status post tracheostomy today 09/22/2018; starting spontaneous breathing trials. * Palliative care will continue to follow this patient to establish stress, assist with symptom management and clarification of medical treatment goals.
--- NOTE | 2018-09-23 18:42 | P.PN ---
Subjective Interval history: ALERT ON VENT TRACH IN PLACE Physical Exam Vital signs: Vital Signs 09/22/18 20:00 09/22/18 21:03 09/22/18 22:00 Temperature 99.1 F Pulse Rate 77 72 75 Respiratory Rate 14 18 Blood Pressure 120/81 Pulse Oximetry 95 97 09/23/18 00:00 09/23/18 01:14 09/23/18 02:00 Temperature 99.0 F Pulse Rate 71 67 68 Respiratory Rate 18 18 Blood Pressure 101/63 Pulse Oximetry 97 09/23/18 04:00 09/23/18 05:01 09/23/18 06:00 Temperature 98.9 F Pulse Rate 71 68 73 Respiratory Rate 22 18 Blood Pressure 96/63 L Pulse Oximetry 97 96 09/23/18 08:00 09/23/18 08:16 09/23/18 08:30 Temperature 99.2 F Pulse Rate 69 69 72 Respiratory Rate 17 24 17 Blood Pressure 107/62 130/58 L 138/60 Pulse Oximetry 97 97 95 09/23/18 08:46 09/23/18 09:00 09/23/18 09:15 Temperature Pulse Rate 70 68 70 Respiratory Rate 8 L 6 L 21 Blood Pressure 120/58 L 114/68 115/64 Pulse Oximetry 95 88 L 80 L 09/23/18 09:28 09/23/18 09:30 09/23/18 09:45 Temperature Pulse Rate 72 69 69 Respiratory Rate 32 H 12 4 L Blood Pressure 115/61 114/60 Pulse Oximetry 96 94 L 09/23/18 10:00 09/23/18 10:15 09/23/18 10:30 Temperature Pulse Rate 70 69 69 Respiratory Rate 9 L 11 L 19 Blood Pressure 118/69 112/68 106/68 Pulse Oximetry 95 96 88 L 09/23/18 10:45 09/23/18 11:00 09/23/18 11:15 Temperature Pulse Rate 68 67 66 Respiratory Rate 7 L 9 L 9 L Blood Pressure 104/66 99/61 L 98/62 L Pulse Oximetry 95 77 L 78 L 09/23/18 11:30 09/23/18 11:45 09/23/18 11:56 Temperature Pulse Rate 71 74 73 Respiratory Rate 7 L 11 L 6 L Blood Pressure 97/59 L 88/56 L 86/54 L Pulse Oximetry 82 L 91 L 81 L 09/23/18 12:00 02/22/19 12:01 09/23/18 12:15 Temperature 99.0 F Pulse Rate 73 74 84 Respiratory Rate 2 L 17 16 Blood Pressure 111/61 111/63 Pulse Oximetry 83 L 82 L 78 L 09/23/18 12:30 09/23/18 12:45 09/23/18 13:00 Temperature Pulse Rate 73 72 74 Respiratory Rate 8 L 8 L 18 Blood Pressure 96/57 L 92/58 L 96/61 L Pulse Oximetry 72 L 83 L 09/23/18 13:15 09/23/18 13:30 09/23/18 13:45 Temperature Pulse Rate 75 71 74 Respiratory Rate 16 13 24 Blood Pressure 123/72 110/72 116/63 Pulse Oximetry 96 09/23/18 14:00 09/23/18 14:15 09/23/18 14:30 Temperature Pulse Rate 76 78 77 Respiratory Rate 19 20 9 L Blood Pressure 112/60 105/60 106/59 L Pulse Oximetry 95 95 94 L 09/23/18 14:45 09/23/18 15:00 09/23/18 15:15 Temperature Pulse Rate 73 72 73 Respiratory Rate 11 L 9 L 10 L Blood Pressure 105/61 105/63 105/66 Pulse Oximetry 93 L 93 L 93 L 09/23/18 15:30 09/23/18 15:45 09/23/18 16:00 Temperature 98.6 F Pulse Rate 72 71 73 Respiratory Rate 17 13 13 Blood Pressure 101/66 101/66 97/67 L Pulse Oximetry 93 L 94 L 92 L 09/23/18 17:16 09/23/18 18:00 Temperature Pulse Rate 73 74 Respiratory Rate 22 Blood Pressure Pulse Oximetry Intake & Output 09/22/18 09/23/18 09/23/18 18:59 06:59 18:59 Intake Total 1400 / 1400 1160 / 1160 943.7 / 943.7 Output Total 505 / 505 600 / 600 Balance 895 / 895 1160 / 1160 343.7 / 343.7 Weight 150 kg Intake: IV 600 / 600 800 / 800 643.7 / 643.7 Diprivan 1000 mg/100 ml Inj 1, 100 / 100 400 / 400 143.7 / 143.7 000 mg In 100 ml @ 5 MCG/KG/MIN 4.332 mls/hr IV.CONT TITRATE PRN Rx#:[id number] Azactam Inj 1,000 MG In NS Inj 200 / 200 100 / 100 200 / 200 100 ML @ 200 mls/hr IV.SIG Q8H [facility] Rx#:[id number] Zyvox 600 mg Premix 300 ML @ 300 / 300 300 / 300 300 / 300 300 mls/hr IV.SIG Q12H [facility] Rx#: [id number] Oral 0 / 0 0 / 0 Tube Feeding 0 / 0 Water Bolus Amount 300 / 300 60 / 60 Free Water Amount 300 / 300 300 / 300 300 / 300 Anesthesia Amount 200 / 200 Output: Urine 500 / 500 600 / 600 Estimated Blood Loss 5 / 5 Other: # Voids 2 # Incontinent Voids 1 Date of Last Bowel Movement 09/21/18 09/21/18 09/21/18 # Bowel Movements 0 # Incontinent Bowel Movements 0 Narrative: Narrative: GENERAL: Intubated. Awake and alert. SKIN: Warm and dry. HEENT: Atraumatic. Normocephalic. Pupils equal and round. EOMI. No scleral icterus. No injection or drainage. CARDIOVASCULAR: Regular rate and rhythm. No murmur appreciated. RESPIRATORY: CTAB, no increased work of breathing. Good air movement GASTROINTESTINAL: Abdomen soft, nondistended. Bowel sounds are present EXTREMITIES: Early venous stasis changes noted bilaterally. Bilateral 2+ pitting pre-tibial edema. Upper extremities are more swollen than the previous day. - Urinary Catheter Management Straight Cath placed during this visit: yes, but has since been removed by the nurse Reason for continuing: Not indwelling catheter Insertion date: 09/20/18 Insertion time: 02:45 Removal date: 09/20/18 Removal time: 03:00 Indwelling Urethral Catheter Cath placed during this visit: yes, but has since been removed by the nurse Reason for continuing: Not indwelling catheter Removal date: 09/19/18 Removal time: 18:00 Results - Labs CBC & Chem 7: 09/22/18 07:49 09/22/18 07:49 Laboratory Results - last 24 hr 09/22/18 09/22/18 09/23/18 14:30 23:51 05:44 POC Glucose 85 87 Nasal Screen MRSA (PCR) Not detected 09/23/18 09/23/18 11:19 17:05 POC Glucose 94 91 Nasal Screen MRSA (PCR) Assessment and Plan - Plan RESPIRATORY FAILURE COPD CHF RAD AFIB PLAN vent support bronchodilator therapy POST TRACHEOSTOMY
--- NOTE | 2018-09-23 23:22 | XR ---
EXAM DATE: 09/23/2018 11:00 PM EST AGE/SEX: 63 years / Female INDICATIONS: NG tube placement. CLINICAL DATA: This is the patient's initial encounter. Patient reports that signs and symptoms have been present for 1 day and indicates a pain score of Nonresponsive. MEDICAL/SURGICAL HISTORY: . Congestive heart failure. Chronic obstructive pulmonary disease. Hy pertension. Atrial fibrillation. MRSA. None. [place] [facility] [place]AST[place] 09/20/2018. . FINDINGS: 2 portable frontal views of the upper abdomen shows a nasogastric tube with the tip in the fundus of the stomach. The position of the tube is unchanged from the prior CT. Elevation left hemidiaphragm. M ild cardiomegaly CONCLUSION: Tip of the NG tube in the fundus of the stomach. Electronically signed by: Matty Calderón MD Board Certified Radiologist 09/23/2018 11:21 PM EST
--- NOTE | 2018-09-24 01:25 | MB ---
cc: Dejuan Holcomb MD DATE: 09/23/2018 REASON FOR CONSULTATION: Abnormal cytology and bronchial washings consisting of severely dysplastic squamous epithelium suspicious for squamous cell carcinoma. PATIENT PROFILE: The patient is a 63-year-old white female. She was once and . 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 She is on disability. In the past she had worked for [employer]. She does not smoke. She does not drink. She is severely debilitated from chronic obstructive pulmonary disease from a Pickwickian syndrome. HISTORY OF PRESENT ILLNESS: The patient is a 63-year-old female who came to [place] emergency room on 09/14/2018 with progressive shortness of breath. She had an unspecified weight gain over several months. She has a previous history of sleep apnea, congestive heart failure, COPD, hypertension, atrial fibrillation and morbid obesity. She had a respiratory deterioration and required intubation. A CAT scan of the abdomen and pelvis on 09/20/2018 showed edema and mildly organized fluid in the left lateral abdominal wall. A CAT scan of the chest on 09/20/2018 showed elevation of the left hemidiaphragm with compressive atelectasis and consolidation of the left lower lobe. There was a patchy right upper lobe ground-glass infiltrate and there was right lower lobe posterior basilar consolidation. What is most important is that there was no identifiable mass. A cytology listed as right middle lobe lung washing reads- "bronchial epithelial cells, and scattered macrophages are present in a background of acute inflammation, negative for malignant cells." The cell block reads, "severely dysplastic squamous epithelium suspicious for squamous cell carcinoma. Marked acute inflammation". The patient remains intubated. She has a tracheostomy. She has an NG tube. She is presently on CPAP. PAST SURGICAL HISTORY: No previous surgeries. PAST MEDICAL HISTORY: 1. Morbid obesity. 2. Chronic obstructive pulmonary disease with Pickwickian syndrome. 3. Sleep apnea and not able to tolerate mask. 4. History of congestive heart failure. 5. Paroxysmal atrial fibrillation. 6. Hypertension. ALLERGIES: MULTIPLE ALLERGIES, WHICH CAN BE FOUND IN THE CHART. CURRENT MEDICATIONS: 1. Aspirin. 2. Azactam. 3. Lovenox 40 daily. 4. Pepcid. 5. Lactulose. 6. Nebulizers. 7. Zyvox. 8. Seroquel. REVIEW OF SYSTEMS: The patient's single only complaint is her breathing. She is not in any pain. PHYSICAL EXAMINATION: GENERAL: Reveals a morbidly obese female. VITAL SIGNS: FiO2 is 40%. O2 is 95%. Respiratory rate is 20. She is afebrile. Blood pressure 100/70. HEENT: Head is normocephalic. Sclerae and conjunctivae unremarkable. Oropharynx unremarkable. The patient has an NG tube and A trach. NECK: There is no cervical, supraclavicular, or axillary adenopathy. HEART: Regular rhythm. LUNGS: Sounds are distant. ABDOMEN: Morbidly obese. EXTREMITIES: 2+ edema. MUSCULOSKELETAL: No bone pain. NEUROLOGIC: Able to move all extremities. She is awake and alert. LABORATORY DATA: On 09/22/2018, hemoglobin 9.5, white count 10,000, platelets 305,000. On 09/20/2018, BUN 14, creatinine 1.0. On 09/19/2018, liver function tests are normal. Albumin is low at 2.2. Microbiology shows Staph aureus MRSA in the sputum and right middle lobe. ASSESSMENT: The patient is a 63-year-old female with severe lung disease from a Pickwickian syndrome and no history of smoking. Her condition is not one that is likely to resolve leaving her with a good performance status. She has a sputum which contains atypical cells suspicious for squamous cell cancer, but no diagnosis of a squamous cell cancer and no mass in the lung. If there is a squamous cell cancer, it is presently irrelevant to her management, as she is not a candidate for surgery, radiation, or chemotherapy. In addition, there is no identifiable mass on the CAT scan of the thorax. RECOMMENDATIONS: 1. I presently would not pursue further evaluation based on the current sputum. 2. If she makes a meaningful recovery with a high level of function, then one could consider repeating a CAT scan of the chest and a bronchoscopy. At the moment, her illness is such that it would not be in her best interest to further investigate the cytology, which presently is nondiagnostic and hopefully is a result of bronchitis pneumonia and inflammation and will improve if she is able to resolve her current pulmonary issues. At this point, I have nothing further to add and will return as needed. MD CRIS Malave/cherry/do Cummins: 09/23/2018, 11:08 PM , 11:49 PM GALA
[2018-09-24] MEDS: hydrALAZINE 10 MG Tablet PO SCH ×3 (02:18→20:34)
[2018-09-24] MEDS: LORazepam 0.5 MG Tablet NG/OG PRN (02:18)
[2018-09-24] MEDS: Senna/Docusate Sodium 8.6/50 MG Tablet PO SCH ×3 (02:19→20:35)
[2018-09-24] MEDS: QUEtiapine 100 MG Tablet PO SCH ×3 (02:19→20:35)
[2018-09-24] MEDS: Famotidine PF Inj 20 MG/2 ML Vial IV.PUSH SCH ×3 (02:20→20:34)
[2018-09-24] MEDS: Chlorhexidine 0.12% Oral Kit 15 ML UDC OROPHARYNG SCH ×3 (02:20→20:34)
[2018-09-24] MEDS: Insulin NovoLOG Aspart Correctional Sugar Inj SQ SCH ×5 (02:21→23:31)
[2018-09-24] MEDS: Artificial Tears Opth Drops 15 ML Bottle EACH EYE SCH ×3 (02:23→18:00)
[2018-09-24] MEDS: Oral Hygiene Kit OROPHARYNG SCH ×5 (02:23→23:31)
--- NOTE | 2018-09-24 10:39 | P.PNFP ---
Subjective Interval history: Pt was seen and examined this morning with nurse at bedside. She is doing much better this morning and had questions about when she can eat and walk. She did pull out her NG tube yesterday and it was reinserted by the nurse. Abdominal x- ray confirmed position. She is currently on CPAP trial this morning with plan to take her off the ventilator if successful. <Eko R3,Soha U - 09/24/18 10:39> Results - Labs Result diagrams: 09/22/18 07:49 09/22/18 07:49 <Ray Fraire - 09/24/18 12:11> - Imaging Impressions Abdomen X-Ray 09/23/18 00:00 CONCLUSION: Tip of the NG tube in the fundus of the stomach. <Ray Fraire - 09/24/18 12:11> Impressions Abdomen X-Ray 09/23/18 00:00 CONCLUSION: Tip of the NG tube in the fundus of the stomach. <Eko R3,Soha U - 09/24/18 10:39> Physical Exam Vital signs: Vital Signs 09/23/18 12:15 09/23/18 12:30 09/23/18 12:45 Temperature Pulse Rate 84 73 72 Respiratory Rate 16 8 L 8 L Blood Pressure 111/63 96/57 L 92/58 L Pulse Oximetry 78 L 72 L 09/23/18 13:00 09/23/18 13:15 09/23/18 13:30 Temperature Pulse Rate 74 75 71 Respiratory Rate 18 16 13 Blood Pressure 96/61 L 123/72 110/72 Pulse Oximetry 83 L 96 09/23/18 13:45 09/23/18 14:00 09/23/18 14:15 Temperature Pulse Rate 74 76 78 Respiratory Rate 24 19 20 Blood Pressure 116/63 112/60 105/60 Pulse Oximetry 95 95 09/23/18 14:30 09/23/18 14:45 09/23/18 15:00 Temperature Pulse Rate 77 73 72 Respiratory Rate 9 L 11 L 9 L Blood Pressure 106/59 L 105/61 105/63 Pulse Oximetry 94 L 93 L 93 L 09/23/18 15:15 09/23/18 15:30 09/23/18 15:45 Temperature Pulse Rate 73 72 71 Respiratory Rate 10 L 17 13 Blood Pressure 105/66 101/66 101/66 Pulse Oximetry 93 L 93 L 94 L 09/23/18 16:00 09/23/18 17:16 09/23/18 18:00 Temperature 98.6 F Pulse Rate 73 73 74 Respiratory Rate 13 22 Blood Pressure 97/67 L Pulse Oximetry 92 L 09/23/18 20:00 09/23/18 21:18 09/23/18 21:45 Temperature 98.2 F Pulse Rate 78 78 75 Respiratory Rate 19 2 L Blood Pressure 116/57 L Pulse Oximetry 95 96 09/23/18 22:00 09/23/18 22:15 09/23/18 22:30 Temperature Pulse Rate 74 74 72 Respiratory Rate 0 L 16 7 L Blood Pressure 112/65 116/74 104/66 Pulse Oximetry 97 09/23/18 22:45 09/23/18 23:00 09/23/18 23:15 Temperature Pulse Rate 79 75 86 Respiratory Rate 27 H 15 26 H Blood Pressure 116/64 113/67 133/88 Pulse Oximetry 96 09/23/18 23:31 09/23/18 23:45 09/24/18 00:00 Temperature 98.8 F Pulse Rate 85 79 83 Respiratory Rate 28 H 10 L 18 Blood Pressure 130/77 126/79 133/76 Pulse Oximetry 98 95 09/24/18 00:15 09/24/18 00:30 09/24/18 00:45 Temperature Pulse Rate 82 85 86 Respiratory Rate 11 L 20 30 H Blood Pressure 133/74 132/61 120/69 Pulse Oximetry 96 09/24/18 01:00 09/24/18 01:15 09/24/18 01:30 Temperature Pulse Rate 79 79 80 Respiratory Rate 9 L 11 L 13 Blood Pressure 118/70 124/83 125/85 Pulse Oximetry 83 L 82 L 82 L 09/24/18 01:45 09/24/18 02:00 09/24/18 02:15 Temperature Pulse Rate 80 78 78 Respiratory Rate 14 8 L 10 L Blood Pressure 125/95 H 122/91 H 130/85 Pulse Oximetry 79 L 75 L 73 L 09/24/18 02:30 09/24/18 02:46 09/24/18 03:00 Temperature Pulse Rate 90 81 Respiratory Rate 20 17 Blood Pressure 178/97 H 132/72 127/65 Pulse Oximetry 94 L 96 09/24/18 03:15 09/24/18 03:30 09/24/18 03:45 Temperature Pulse Rate 75 70 67 Respiratory Rate 12 18 8 L Blood Pressure 125/73 131/72 121/81 Pulse Oximetry 94 L 95 93 L 09/24/18 04:00 09/24/18 04:15 09/24/18 04:17 Temperature Pulse Rate 67 66 65 Respiratory Rate 11 L 5 L 18 Blood Pressure 115/77 113/76 Pulse Oximetry 94 L 94 L 95 09/24/18 05:44 09/24/18 08:00 09/24/18 08:17 Temperature 98.9 F Pulse Rate 65 64 63 Respiratory Rate 12 18 Blood Pressure 110/66 Pulse Oximetry 94 L 94 L 09/24/18 08:25 09/24/18 10:00 09/24/18 11:47 Temperature Pulse Rate 76 73 Respiratory Rate 11 L 19 Blood Pressure Pulse Oximetry 93 L 93 L Intake & Output 09/23/18 09/24/18 09/24/18 18:59 06:59 18:59 Intake Total 943.7 / 943.7 850 / 850 150 / 150 Output Total 600 / 600 2800 / 2800 Balance 343.7 / 343.7 -1950 / -1950 150 / 150 Weight 150 kg Intake: IV 643.7 / 643.7 400 / 400 Diprivan 1000 mg/100 ml Inj 1, 143.7 / 143.7 000 mg In 100 ml @ 5 MCG/KG/MIN 4.332 mls/hr IV.CONT TITRATE PRN Rx#:[id number] Azactam Inj 1,000 MG In NS Inj 200 / 200 100 / 100 100 ML @ 200 mls/hr IV.SIG Q8H PABLO Rx#:[id number] Zyvox 600 mg Premix 300 ML @ 300 / 300 300 / 300 300 mls/hr IV.SIG Q12H PABLO Rx#: [id number] Oral 0 / 0 Free Water Amount 300 / 300 200 / 200 150 / 150 Other 250 / 250 Output: Urine 600 / 600 2800 / 2800 Other: Other Intake Source Saline Solution Date of Last Bowel Movement 09/21/18 09/21/18 09/21/18 # Bowel Movements 0 <Prevatte,Ray - 09/24/18 12:11> Vital Signs 09/23/18 10:30 09/23/18 10:45 09/23/18 11:00 Temperature Pulse Rate 69 68 67 Respiratory Rate 19 7 L 9 L Blood Pressure 106/68 104/66 99/61 L Pulse Oximetry 88 L 95 77 L 09/23/18 11:15 09/23/18 11:30 09/23/18 11:45 Temperature Pulse Rate 66 71 74 Respiratory Rate 9 L 7 L 11 L Blood Pressure 98/62 L 97/59 L 88/56 L Pulse Oximetry 78 L 82 L 91 L 09/23/18 11:56 09/23/18 12:00 09/23/18 12:01 Temperature 99.0 F Pulse Rate 73 73 74 Respiratory Rate 6 L 2 L 17 Blood Pressure 86/54 L 111/61 Pulse Oximetry 81 L 83 L 82 L 09/23/18 12:15 09/23/18 12:30 09/23/18 12:45 Temperature Pulse Rate 84 73 72 Respiratory Rate 16 8 L 8 L Blood Pressure 111/63 96/57 L 92/58 L Pulse Oximetry 78 L 72 L 09/23/18 13:00 09/23/18 13:15 09/23/18 13:30 Temperature Pulse Rate 74 75 71 Respiratory Rate 18 16 13 Blood Pressure 96/61 L 123/72 110/72 Pulse Oximetry 83 L 96 09/23/18 13:45 09/23/18 14:00 09/23/18 14:15 Temperature Pulse Rate 74 76 78 Respiratory Rate 24 19 20 Blood Pressure 116/63 112/60 105/60 Pulse Oximetry 95 95 09/23/18 14:30 09/23/18 14:45 09/23/18 15:00 Temperature Pulse Rate 77 73 72 Respiratory Rate 9 L 11 L 9 L Blood Pressure 106/59 L 105/61 105/63 Pulse Oximetry 94 L 93 L 93 L 09/23/18 15:15 09/23/18 15:30 09/23/18 15:45 Temperature Pulse Rate 73 72 71 Respiratory Rate 10 L 17 13 Blood Pressure 105/66 101/66 101/66 Pulse Oximetry 93 L 93 L 94 L 09/23/18 16:00 09/23/18 17:16 09/23/18 18:00 Temperature 98.6 F Pulse Rate 73 73 74 Respiratory Rate 13 22 Blood Pressure 97/67 L Pulse Oximetry 92 L 09/23/18 20:00 09/23/18 21:18 09/23/18 21:45 Temperature 98.2 F Pulse Rate 78 78 75 Respiratory Rate 19 2 L Blood Pressure 116/57 L Pulse Oximetry 95 96 09/23/18 22:00 09/23/18 22:15 09/23/18 22:30 Temperature Pulse Rate 74 74 72 Respiratory Rate 0 L 16 7 L Blood Pressure 112/65 116/74 104/66 Pulse Oximetry 97 09/23/18 22:45 09/23/18 23:00 09/23/18 23:15 Temperature Pulse Rate 79 75 86 Respiratory Rate 27 H 15 26 H Blood Pressure 116/64 113/67 133/88 Pulse Oximetry 96 09/23/18 23:31 09/23/18 23:45 09/24/18 00:00 Temperature 98.8 F Pulse Rate 85 79 83 Respiratory Rate 28 H 10 L 18 Blood Pressure 130/77 126/79 133/76 Pulse Oximetry 98 95 09/24/18 00:15 09/24/18 00:30 09/24/18 00:45 Temperature Pulse Rate 82 85 86 Respiratory Rate 11 L 20 30 H Blood Pressure 133/74 132/61 120/69 Pulse Oximetry 96 09/24/18 01:00 09/24/18 01:15 09/24/18 01:30 Temperature Pulse Rate 79 79 80 Respiratory Rate 9 L 11 L 13 Blood Pressure 118/70 124/83 125/85 Pulse Oximetry 83 L 82 L 82 L 09/24/18 01:45 09/24/18 02:00 09/24/18 02:15 Temperature Pulse Rate 80 78 78 Respiratory Rate 14 8 L 10 L Blood Pressure 125/95 H 122/91 H 130/85 Pulse Oximetry 79 L 75 L 73 L 09/24/18 02:30 09/24/18 02:46 09/24/18 03:00 Temperature Pulse Rate 90 81 Respiratory Rate 20 17 Blood Pressure 178/97 H 132/72 127/65 Pulse Oximetry 94 L 96 09/24/18 03:15 09/24/18 03:30 09/24/18 03:45 Temperature Pulse Rate 75 70 67 Respiratory Rate 12 18 8 L Blood Pressure 125/73 131/72 121/81 Pulse Oximetry 94 L 95 93 L 09/24/18 04:00 09/24/18 04:15 09/24/18 04:17 Temperature Pulse Rate 67 66 65 Respiratory Rate 11 L 5 L 18 Blood Pressure 115/77 113/76 Pulse Oximetry 94 L 94 L 95 09/24/18 05:44 09/24/18 08:00 09/24/18 08:17 Temperature 98.9 F Pulse Rate 65 64 63 Respiratory Rate 12 18 Blood Pressure 110/66 Pulse Oximetry 94 L 94 L 09/24/18 08:25 Temperature Pulse Rate Respiratory Rate 11 L Blood Pressure Pulse Oximetry 93 L Intake & Output 09/23/18 09/24/18 09/24/18 18:59 06:59 18:59 Intake Total 943.7 / 943.7 850 / 850 Output Total 600 / 600 2800 / 2800 Balance 343.7 / 343.7 -1950 / -1950 Weight 150 kg Intake: IV 643.7 / 643.7 400 / 400 Diprivan 1000 mg/100 ml Inj 1, 143.7 / 143.7 000 mg In 100 ml @ 5 MCG/KG/MIN 4.332 mls/hr IV.CONT TITRATE PRN Rx#:[id number] Azactam Inj 1,000 MG In NS Inj 200 / 200 100 / 100 100 ML @ 200 mls/hr IV.SIG Q8H PABLO Rx#:[id number] Zyvox 600 mg Premix 300 ML @ 300 / 300 300 / 300 300 mls/hr IV.SIG Q12H PABLO Rx#: [id number] Oral 0 / 0 Free Water Amount 300 / 300 200 / 200 Other 250 / 250 Output: Urine 600 / 600 2800 / 2800 Other: Other Intake Source Saline Solution Date of Last Bowel Movement 09/21/18 09/21/18 09/21/18 # Bowel Movements 0 <Eko R3,Soha U - 09/24/18 10:39> Narrative: Narrative: GENERAL: Intubated. Awake but sleepy SKIN: Warm and dry. HEENT: Atraumatic. Normocephalic. Pupils equal and round. EOMI. No scleral icterus. No injection or drainage. CARDIOVASCULAR: Regular rate and rhythm. No murmur appreciated. RESPIRATORY: CTAB, no increased work of breathing. Good air movement GASTROINTESTINAL: Abdomen soft, nondistended. Bowel sounds are present EXTREMITIES: Early venous stasis changes noted bilaterally. Bilateral 2+ pitting pre-tibial edema. <Eko R3,Soha U - 09/24/18 10:39> - Urinary Catheter Management Indwelling Urethral Catheter Cath placed during this visit: no <Evin Frairewin - 09/24/18 12:11> yes, but has since been removed by the nurse <Fredo Soha Giraldo U - 09/24/18 10:39> Reason for continuing: Not indwelling catheter <Eko Soha Giraldo U - 09/24/18 10 :39> Removal date: 09/19/18 <Eko R3Soha U 09/24/18 10:39> Removal time: 18:00 <Eko R3Soha U - 09/24/18 10:39> Straight Cath placed during this visit: no <Evin Frairewin - 09/24/18 12:11> yes, but has since been removed by the nurse <Fredo Soha Giraldo U 09/24/18 10:39> Reason for continuing: Not indwelling catheter <Eko Soha Giraldo 09/24/18 10 :39> Insertion date: 09/20/18 <Eko R3Soha U 09/24/18 10:39> Insertion time: 02:45 <Eko R3Soha U 09/24/18 10:39> Removal date: 09/20/18 <Eko R3Soha U 09/24/18 10:39> Removal time: 03:00 <Eko Soha Giraldo 09/24/18 10:39> Assessment and Plan - Assessment (1) Acute respiratory failure Code(s): J96.00 - Acute respiratory failure, unspecified whether with hypoxia or hypercapnia Status: Acute (2) MRSA pneumonia Code(s): J15.212 - Pneumonia due to Methicillin resistant Staphylococcus aureus Status: Acute (3) RAD (obstructive sleep apnea) Code(s): G47.33 - Obstructive sleep apnea (adult) (pediatric) Status: Acute (4) Hypertension Code(s): I10 - Essential (primary) hypertension Status: Acute (5) COPD (chronic obstructive pulmonary disease) Code(s): J44.9 - Chronic obstructive pulmonary disease, unspecified Status: Acute (6) GERD (gastroesophageal reflux disease) Code(s): K21.9 - Gastro-esophageal reflux disease without esophagitis Status: Acute (7) Afib Code(s): I48.91 - Unspecified atrial fibrillation Status: Acute (8) Anxiety Code(s): F41.9 - Anxiety disorder, unspecified Status: Acute (9) Tremors of nervous system Code(s): R25.1 - Tremor, unspecified Status: Acute (10) Chronic back pain Code(s): M54.9 - Dorsalgia, unspecified; G89.29 - Other chronic pain Status: Acute (11) Anemia Code(s): D64.9 - Anemia, unspecified Status: Acute (12) KIKE (acute kidney injury) Code(s): N17.9 - Acute kidney failure, unspecified Status: Acute (13) Abnormal cytology Code(s): R89.6 - Abnormal cytological findings in specimens from other organs, systems and tissues Status: Acute (14) Heart failure with preserved ejection fraction Code(s): I50.30 - Unspecified diastolic (congestive) heart failure Status: Acute <Ray Fraire - 09/24/18 12:11> (1) Acute respiratory failure Code(s): J96.00 - Acute respiratory failure, unspecified whether with hypoxia or hypercapnia Status: Acute (2) MRSA pneumonia Code(s): J15.212 - Pneumonia due to Methicillin resistant Staphylococcus aureus Status: Acute (3) RAD (obstructive sleep apnea) Code(s): G47.33 - Obstructive sleep apnea (adult) (pediatric) Status: Acute (4) Hypertension Code(s): I10 - Essential (primary) hypertension Status: Acute (5) COPD (chronic obstructive pulmonary disease) Code(s): J44.9 - Chronic obstructive pulmonary disease, unspecified Status: Acute (6) GERD (gastroesophageal reflux disease) Code(s): K21.9 - Gastro-esophageal reflux disease without esophagitis Status: Acute (7) Afib Code(s): I48.91 - Unspecified atrial fibrillation Status: Acute (8) Anxiety Code(s): F41.9 - Anxiety disorder, unspecified Status: Acute (9) Tremors of nervous system Code(s): R25.1 - Tremor, unspecified Status: Acute (10) Chronic back pain Code(s): M54.9 - Dorsalgia, unspecified; G89.29 - Other chronic pain Status: Acute (11) Anemia Code(s): D64.9 - Anemia, unspecified Status: Acute (12) KIKE (acute kidney injury) Code(s): N17.9 - Acute kidney failure, unspecified Status: Acute (13) Abnormal cytology Code(s): R89.6 - Abnormal cytological findings in specimens from other organs, systems and tissues Status: Acute (14) Heart failure with preserved ejection fraction Code(s): I50.30 - Unspecified diastolic (congestive) heart failure Status: Acute <Eko R3,Soha U - 09/24/18 10:27> - Assessment and Plan 63-year-old female presented with shortness of breath presumed to be due to CHFpEF but likely related to her chronic obstructive sleep apnea. The patient was noted to be obtunded 09/15 with acute respiratory failure and marked CO2 retention requiring emergent intubation with mechanical ventilation. On 09/18, bronchoscopy was performed with removal of copious amounts of mucus mixed with bright red blood from both bronchi. She was also started on vancomycin and aztreonam due to fevers. Bronchial washings and sputum grew MRSA - ID consulted on 09/20/2018 - switched to Linezolid and aztreonam and now improved. Tracheostomy tube was placed on 09/22/18. Right middle lobe bronchial washings from 09/20/2018 is suspicious for squamous cell carcinoma. Oncology consulted and stated that pt is not a candidate for any further intervention at this time due to her respiratory status. Acute hypercarbic respiratory failure -Tracheostomy tube in place, on CPAP trial this morning -No pressors -Wean off vent as tolerated -Critical care managing Obstructive sleep apnea with obesity hypoventilation syndrome -Last PFT showed mild restrictive lung disease -Trach as above -Pulmonology on board. Patient known to Dr. House MRSA Pneumonia -Bronchial washings and sputum grew MRSA -No fever in the past 24 hours -Blood cultures no growth x 5 days -ID on board -Patient on Linezolid (started on 09/20) and aztreonam started on 09/18 Abnormal Cytology -Cell block from the right middle lobe washing on 09/18/18 showed: * Severely dysplastic squamous epithelium suspicious for squamous cell carcinoma * May explain bloody sputum and previous hemoptysis but will need further testing to confirm when she is much improved -Consult placed to oncology on 09/23 * Seen by Dr. Holcomb * Not sure of diagnosis, no solid mass seen on CT * At this time, she is not a candidate for any further investigation before treatment options are even considered * If her current status improves, she could possible undergo further testing in [address] scan and bronchoscopy -Palliative care was consulted by ID to discuss goals/progression of care, weaning off the vent, and abnormal lung cytology Acute Kidney Injury - Improving - Continue Furosemide - Strict Is and Os - Avoid nephrotoxic medications Heart Failure with Preserved Ejection Fraction -Echocardiogram: 09/06/12 - ejection fraction of 50-55% with normal wall motion -Monitor strict I/O's -Continue Furosemide AFIB -Stable -Continue home sotalol if BP can tolerate Hypertension -Monitor vital signs -Continue home BP medications if blood pressure tolerates COPD -The patient carries a diagnosis of COPD per chart review -Possible heavy secondhand smoke exposure or symptoms all stemming from RAD -Spiriva nebulizer 0.5 mg q4h scheduled - she reports allergy to albuterol Anemia -Chronic anemia -Currently stable, continue to monitor CBC daily Anxiety -Continue home lorazepam 1 mg p.o. twice daily prn GERD -On Famotidine for ppx Chronic back pain/arthritis -Allergic to multiple medications including ibuprofen and Tylenol, not on any pain medications at home -Consider alternative therapies if needed -PT evaluate and treat while in the hospital once patient is extubated FEN/ppx F: Free water flushes E: On ICU electrolyte protocol N: NPO except meds. RD recommends Jevity 1.5 @ 55mL/hr to provide 1980kcal, 84g of protein, and 1003mL of free water to best meet pt's updated needs -DVT ppx: Lovenox held due to hemoptysis, SCDs in place -GI ppx: Famotidine, Senna/Docusate Continue soft restraints to prevent patient from pulling out tracheostomy tube <Eko R3,Soha U - 09/24/18 10:39> Discussed Condition With: Pt's nurse <Eko R3,Soha U - 09/24/18 10:39> Discharge Planning: Pending clinical improvement <Eko R3,Soha U - 09/24/18 10:39> - Attending Attestation The patient was seen and examined. Alert, responsive, Lung exam reveals good air movement bilaterally. I have reviewed the resident's documentation and agree with the assessment and plan as documented. The patient is currently tolerating CPAP well. <Prevatte,Ray - 09/24/18 12:11>
[2018-09-24] MEDS: Simethicone 125 MG Chew Tablet PO SCH (11:54)
[2018-09-24 12:19] LABS: Baso % (Auto) 0.7 % (0.0-2.0); Eos # (Auto) 0.4 th/mm3 (0.0-0.4); Eos % (Auto) 5.6 % (0.0-4.0); Hematocrit 25.8 % (35.0-46.0); Hemoglobin 8.1 gm/dL (11.6-15.3); Lymph # (Auto) 1.1 th/mm3 (1.0-4.8); Lymph % (Auto) 17.3 % (9.0-44.0); Mean Corpuscular HGB Conc 31.2 % (32.0-36.0); Mean Corpuscular Hemoglobin 27.2 pg (27.0-34.0); Mean Corpuscular Volume 86.9 fL (80.0-100.0); Mean Platelet Volume 7.6 fL (7.0-11.0); Mono # (Auto) 0.8 th/mm3 (0.0-0.9); Mono % (Auto) 11.8 % (0.0-8.0); Neut # (Auto) 4.2 th/mm3 (1.8-7.7); Neut % (Auto) 64.6 % (16.0-70.0); Platelet Count 294 th/mm3 (150-450); Red Blood Count 2.96 mil/mm3 (4.00-5.30); Red Cell Distribution Width 16.2 % (11.6-17.2); White Blood Count 6.5 th/mm3 (4.0-11.0)
[2018-09-24 12:48] LABS: Alanine Aminotransferase 20 U/L (10-53); Alkaline Phosphatase 65 U/L (45-117); Anion Gap 7 meq/L (5-15); Aspartate Aminotransferase 35 U/L (15-37); Blood Urea Nitrogen 8 mg/dL (7-18); Calcium 7.6 mg/dL (8.5-10.1); Carbon Dioxide 27.1 meq/L (21.0-32.0); Chloride 110 meq/L (98-107); Glomerular Filtration Rate 86 mL/min (>89); Glucose,Random 86 mg/dL (74-106); Potassium 3.2 meq/L (3.5-5.1); Sodium 144 meq/L (136-145); Total Protein 5.6 g/dL (6.4-8.2)
[2018-09-24] MEDS: Potassium Chloride Liq 20 MEQ/15 ML UDC PO PRN (13:28)
[2018-09-24] MEDS: Potassium Chlor 20 mEq Premix 20 MEQ/100 ML PIGGYBACK IV.SIG PRN ×2 (13:45→16:28)
--- NOTE | 2018-09-24 14:09 | P.PN ---
Subjective Interval history: ALERT TRACH IN PLACE ON BIPAP Physical Exam Vital signs: Vital Signs 09/23/18 14:15 09/23/18 14:30 09/23/18 14:45 Temperature Pulse Rate 78 77 73 Respiratory Rate 20 9 L 11 L Blood Pressure 105/60 106/59 L 105/61 Pulse Oximetry 95 94 L 93 L 09/23/18 15:00 09/23/18 15:15 09/23/18 15:30 Temperature Pulse Rate 72 73 72 Respiratory Rate 9 L 10 L 17 Blood Pressure 105/63 105/66 101/66 Pulse Oximetry 93 L 93 L 93 L 09/23/18 15:45 09/23/18 16:00 09/23/18 17:16 Temperature 98.6 F Pulse Rate 71 73 73 Respiratory Rate 13 13 22 Blood Pressure 101/66 97/67 L Pulse Oximetry 94 L 92 L 09/23/18 18:00 09/23/18 20:00 09/23/18 21:18 Temperature 98.2 F Pulse Rate 74 78 78 Respiratory Rate 19 Blood Pressure Pulse Oximetry 95 09/23/18 21:45 09/23/18 22:00 09/23/18 22:15 Temperature Pulse Rate 75 74 74 Respiratory Rate 2 L 0 L 16 Blood Pressure 116/57 L 112/65 116/74 Pulse Oximetry 96 97 09/23/18 22:30 09/23/18 22:45 09/23/18 23:00 Temperature Pulse Rate 72 79 75 Respiratory Rate 7 L 27 H 15 Blood Pressure 104/66 116/64 113/67 Pulse Oximetry 09/23/18 23:15 09/23/18 23:31 09/23/18 23:45 Temperature Pulse Rate 86 85 79 Respiratory Rate 26 H 28 H 10 L Blood Pressure 133/88 130/77 126/79 Pulse Oximetry 96 98 09/24/18 00:00 09/24/18 00:15 09/24/18 00:30 Temperature 98.8 F Pulse Rate 83 82 85 Respiratory Rate 18 11 L 20 Blood Pressure 133/76 133/74 132/61 Pulse Oximetry 95 96 09/24/18 00:45 09/24/18 01:00 09/24/18 01:15 Temperature Pulse Rate 86 79 79 Respiratory Rate 30 H 9 L 11 L Blood Pressure 120/69 118/70 124/83 Pulse Oximetry 83 L 82 L 09/24/18 01:30 09/24/18 01:45 09/24/18 02:00 Temperature Pulse Rate 80 80 78 Respiratory Rate 13 14 8 L Blood Pressure 125/85 125/95 H 122/91 H Pulse Oximetry 82 L 79 L 75 L 09/24/18 02:15 09/24/18 02:30 09/24/18 02:46 Temperature Pulse Rate 78 90 Respiratory Rate 10 L 20 Blood Pressure 130/85 178/97 H 132/72 Pulse Oximetry 73 L 94 L 09/24/18 03:00 09/24/18 03:15 09/24/18 03:30 Temperature Pulse Rate 81 75 70 Respiratory Rate 17 12 18 Blood Pressure 127/65 125/73 131/72 Pulse Oximetry 96 94 L 95 09/24/18 03:45 09/24/18 04:00 09/24/18 04:15 Temperature Pulse Rate 67 67 66 Respiratory Rate 8 L 11 L 5 L Blood Pressure 121/81 115/77 113/76 Pulse Oximetry 93 L 94 L 94 L 09/24/18 04:17 09/24/18 05:44 09/24/18 08:00 Temperature 98.9 F Pulse Rate 65 65 64 Respiratory Rate 18 12 Blood Pressure 110/66 Pulse Oximetry 95 94 L 09/24/18 08:17 09/24/18 08:25 09/24/18 10:00 Temperature Pulse Rate 63 76 Respiratory Rate 18 11 L Blood Pressure Pulse Oximetry 94 L 93 L 09/24/18 11:47 Temperature Pulse Rate 73 Respiratory Rate 19 Blood Pressure Pulse Oximetry 93 L Intake & Output 09/23/18 09/24/18 09/24/18 18:59 06:59 18:59 Intake Total 943.7 / 943.7 850 / 850 300 / 300 Output Total 600 / 600 2800 / 2800 Balance 343.7 / 343.7 -1950 / -1950 300 / 300 Weight 150 kg Intake: IV 643.7 / 643.7 400 / 400 Diprivan 1000 mg/100 ml Inj 1, 143.7 / 143.7 000 mg In 100 ml @ 5 MCG/KG/MIN 4.332 mls/hr IV.CONT TITRATE PRN Rx#:[id number] Azactam Inj 1,000 MG In NS Inj 200 / 200 100 / 100 100 ML @ 200 mls/hr IV.SIG Q8H PABLO Rx#:[id number] Zyvox 600 mg Premix 300 ML @ 300 / 300 300 / 300 300 mls/hr IV.SIG Q12H PABLO Rx#: [id number] Oral 0 / 0 Free Water Amount 300 / 300 200 / 200 300 / 300 Other 250 / 250 Output: Urine 600 / 600 2800 / 2800 Other: Other Intake Source Saline Solution Date of Last Bowel Movement 09/21/18 09/21/18 09/21/18 # Bowel Movements 0 Narrative: Narrative: GENERAL: Intubated. Awake but sleepy SKIN: Warm and dry. HEENT: Atraumatic. Normocephalic. Pupils equal and round. EOMI. No scleral icterus. No injection or drainage. CARDIOVASCULAR: Regular rate and rhythm. No murmur appreciated. RESPIRATORY: CTAB, no increased work of breathing. Good air movement GASTROINTESTINAL: Abdomen soft, nondistended. Bowel sounds are present EXTREMITIES: Early venous stasis changes noted bilaterally. Bilateral 2+ pitting pre-tibial edema. - Urinary Catheter Management Straight Cath placed during this visit: yes, but has since been removed by the nurse Reason for continuing: Not indwelling catheter Insertion date: 09/20/18 Insertion time: 02:45 Removal date: 09/20/18 Removal time: 03:00 Indwelling Urethral Catheter Cath placed during this visit: yes, but has since been removed by the nurse Reason for continuing: Not indwelling catheter Removal date: 09/19/18 Removal time: 18:00 Results - Labs CBC & Chem 7: 09/24/18 11:45 09/24/18 11:45 Laboratory Results - last 24 hr 09/23/18 09/24/18 09/24/18 17:05 05:37 11:45 WBC 6.5 RBC 2.96 L Hgb 8.1 L Hct 25.8 L MCV 86.9 MCH 27.2 MCHC 31.2 L RDW 16.2 Plt Count 294 MPV 7.6 Neut % (Auto) 64.6 Lymph % (Auto) 17.3 Alfalfa % (Auto) 11.8 H Eos % (Auto) 5.6 H Baso % (Auto) 0.7 Neut # (Auto) 4.2 Lymph # (Auto) 1.1 Alfalfa # (Auto) 0.8 Eos # (Auto) 0.4 Baso # (Auto) 0.0 WBC Differential . Differential Comment Auto diff final Sodium Potassium Chloride Carbon Dioxide Anion Gap BUN Creatinine Estimated GFR POC Glucose 91 83 Random Glucose Calcium Total Bilirubin AST ALT Alkaline Phosphatase Total Protein Albumin 09/24/18 11:45 WBC RBC Hgb Hct MCV MCH MCHC RDW Plt Count MPV Neut % (Auto) Lymph % (Auto) Alfalfa % (Auto) Eos % (Auto) Baso % (Auto) Neut # (Auto) Lymph # (Auto) Alfalfa # (Auto) Eos # (Auto) Baso # (Auto) WBC Differential Differential Comment Sodium 144 Potassium 3.2 L Chloride 110 H Carbon Dioxide 27.1 Anion Gap 7 BUN 8 Creatinine 0.69 Estimated GFR 86 L POC Glucose Random Glucose 86 Calcium 7.6 L Total Bilirubin 0.3 AST 35 ALT 20 Alkaline Phosphatase 65 Total Protein 5.6 L D Albumin 2.0 L - Imaging Impressions Abdomen X-Ray 09/23/18 00:00 CONCLUSION: Tip of the NG tube in the fundus of the stomach. Assessment and Plan - Plan RESPIRATORY FAILURE COPD CHF RAD AFIB PLAN vent support bronchodilator therapy WEAN T[employer]ER[employer]
--- NOTE | 2018-09-24 15:13 | P.PNCC ---
Subjective Subjective Remarks/Hospital Course: This is a 63-year-old female. Date of admission 09/14/2018. Date of consultation 09/15/2018. Past medical history includes paroxysmal atrial fibrillation currently normal sinus rhythm, elevated BMI, congestive heart failure with last documented ejection fraction 55% 2012, COPD, hypertension, left bundle branch block essential tremors. Patient originally planned to [facility] [employer] on 09/14/2018 with worsening shortness of breath slowly on coming over the past couple weeks. She also noticed increasing bilateral lower extremity edema. Per documentation, patient recently saw her president practicing urologist Dr. Silverman on Wednesday who asked her to drink as much fluid and juice as she possibly could and reduce her dose of Lasix from 20 mg twice a day to once a day. During current hospitalization, patient resume home medications of enalapril, furosemide, metoprolol and hydralazine. Patient seen by cardiology and pulmonology. Refusing to be from central sleep apnea. Currently on ipratropium aerosols every [address] House. Seen by Dr. Chew. Switch to sotalol 80 mg twice daily and diuresis furosemide 40 mg IV twice daily. This morning, patient was found obtunded. PH was 7.17. Retaining CO2. Transfer to ICU and intubated using 20 mg etomidate. 09/16: No acute distress on mechanical ventilation. Arousable but not following commands. Tolerating tube feeding. Decreased urine output. Will Place Coello catheter to monitor accurate I's and O's 09/17: Failed extubation yesterday after 20 minutes. Extremely anxious. Currently on low-dose dexmedetomidine drip and bradycardic. Tube feeds restarted. Urine output has increased. 09/18: Some hemoptysis overnight. Enoxaparin held. Currently on CPAP trials at 40%. Started on vancomycin and aztreonam for fevers. Arousable and follows commands 09/19: Patient failed trial of extubation again yesterday, required bronchoscopy due to bloody secretions from ETT but no active bleeding was seen. 09/20: General surgery consulted for tracheostomy, patient was agreeable when I spoke with her yesterday but her daughter was hesitant. Awaiting their decision. The patient's sputum cultures are positive for MRSA, will consult ID. The patient wrote on a piece of paper to me that she is having hallucinations from precedex. She is requesting that I discontinue this medication. 09/21: No overnight events. Patient became tachypneic and appeared anxious and distressed when I briefly attempted to switch her to spontaneous breathing trial , placed back on AC. Tentatively planned for tracheostomy tomorrow. 09/22: Awake and alert. Remains orally intubated on mechanical ventilation. Awaiting tracheostomy. 09/23: Awake and alert despite being on propofol. Gets anxious. Status post tracheostomy yesterday. Started CPAP trials. Tolerating tube feeds via NG tube 09/24: Tolerating SBT well today. PEEP of 8, 50% FiO2. We will attempt T-piece trials Objective Vital Signs / I&O: Vital Signs 09/23/18 15:15 09/23/18 15:30 09/23/18 15:45 Temperature Pulse Rate 73 72 71 Respiratory Rate 10 L 17 13 Blood Pressure 105/66 101/66 101/66 Pulse Oximetry 93 L 93 L 94 L 09/23/18 16:00 09/23/18 17:16 09/23/18 18:00 Temperature 98.6 F Pulse Rate 73 73 74 Respiratory Rate 13 22 Blood Pressure 97/67 L Pulse Oximetry 92 L 09/23/18 20:00 09/23/18 21:18 09/23/18 21:45 Temperature 98.2 F Pulse Rate 78 78 75 Respiratory Rate 19 2 L Blood Pressure 116/57 L Pulse Oximetry 95 96 09/23/18 22:00 09/23/18 22:15 09/23/18 22:30 Temperature Pulse Rate 74 74 72 Respiratory Rate 0 L 16 7 L Blood Pressure 112/65 116/74 104/66 Pulse Oximetry 97 09/23/18 22:45 09/23/18 23:00 09/23/18 23:15 Temperature Pulse Rate 79 75 86 Respiratory Rate 27 H 15 26 H Blood Pressure 116/64 113/67 133/88 Pulse Oximetry 96 09/23/18 23:31 09/23/18 23:45 09/24/18 00:00 Temperature 98.8 F Pulse Rate 85 79 83 Respiratory Rate 28 H 10 L 18 Blood Pressure 130/77 126/79 133/76 Pulse Oximetry 98 95 09/24/18 00:15 09/24/18 00:30 09/24/18 00:45 Temperature Pulse Rate 82 85 86 Respiratory Rate 11 L 20 30 H Blood Pressure 133/74 132/61 120/69 Pulse Oximetry 96 09/24/18 01:00 09/24/18 01:15 09/24/18 01:30 Temperature Pulse Rate 79 79 80 Respiratory Rate 9 L 11 L 13 Blood Pressure 118/70 124/83 125/85 Pulse Oximetry 83 L 82 L 82 L 09/24/18 01:45 09/24/18 02:00 09/24/18 02:15 Temperature Pulse Rate 80 78 78 Respiratory Rate 14 8 L 10 L Blood Pressure 125/95 H 122/91 H 130/85 Pulse Oximetry 79 L 75 L 73 L 09/24/18 02:30 09/24/18 02:46 09/24/18 03:00 Temperature Pulse Rate 90 81 Respiratory Rate 20 17 Blood Pressure 178/97 H 132/72 127/65 Pulse Oximetry 94 L 96 09/24/18 03:15 09/24/18 03:30 09/24/18 03:45 Temperature Pulse Rate 75 70 67 Respiratory Rate 12 18 8 L Blood Pressure 125/73 131/72 121/81 Pulse Oximetry 94 L 95 93 L 09/24/18 04:00 09/24/18 04:15 09/24/18 04:17 Temperature Pulse Rate 67 66 65 Respiratory Rate 11 L 5 L 18 Blood Pressure 115/77 113/76 Pulse Oximetry 94 L 94 L 95 09/24/18 05:44 09/24/18 08:00 09/24/18 08:17 Temperature 98.9 F Pulse Rate 65 64 63 Respiratory Rate 12 18 Blood Pressure 110/66 Pulse Oximetry 94 L 94 L 09/24/18 08:25 09/24/18 10:00 09/24/18 11:47 Temperature Pulse Rate 76 73 Respiratory Rate 11 L 19 Blood Pressure Pulse Oximetry 93 L 93 L 09/24/18 12:00 09/24/18 14:00 Temperature 98.3 F Pulse Rate 92 H 86 Respiratory Rate 20 Blood Pressure 142/66 H Pulse Oximetry 92 L Intake & Output 09/23/18 09/24/18 09/24/18 18:59 06:59 18:59 Intake Total 943.7 / 943.7 850 / 850 300 / 300 Output Total 600 / 600 2800 / 2800 Balance 343.7 / 343.7 -1950 / -1950 300 / 300 Weight 150 kg Intake: IV 643.7 / 643.7 400 / 400 Diprivan 1000 mg/100 ml Inj 1, 143.7 / 143.7 000 mg In 100 ml @ 5 MCG/KG/MIN 4.332 mls/hr IV.CONT TITRATE PRN Rx#:[id number] Azactam Inj 1,000 MG In NS Inj 200 / 200 100 / 100 100 ML @ 200 mls/hr IV.SIG Q8H PABLO Rx#:[id number] Zyvox 600 mg Premix 300 ML @ 300 / 300 300 / 300 300 mls/hr IV.SIG Q12H PABLO Rx#: [id number] Oral 0 / 0 Free Water Amount 300 / 300 200 / 200 300 / 300 Other 250 / 250 Output: Urine 600 / 600 2800 / 2800 Other: Other Intake Source Saline Solution Date of Last Bowel Movement 09/21/18 09/21/18 09/21/18 # Bowel Movements 0 Result Diagrams: 09/24/18 11:45 09/24/18 11:45 Objective Remarks: GENERAL: awake and alert SKIN: No rashes or lesions HEAD: NCAT EYES: PERRL ENT: Mucous membranes pink and moist. NECK: Tracheostomy in place CARDIOVASCULAR: Regular rate and rhythm RESPIRATORY: Diminished breath sounds due to body habitus, secretions thick but not bloody GASTROINTESTINAL: Abdomen soft, non-tender, obese MUSCULOSKELETAL: Trace nonpitting bilateral lower extremity edema NEUROLOGICAL: RASS 0, awake and alert, nods/ shakes head appropriately to yes/ no questions Assessment and Plan - Assessment and Plan Plan: 63yF presenting with acute hypoxic respiratory failure and failed attempt at extubation x 2 Neuro/Psych: Anxiety disorder Chronic benzodiazepine use D/C Propofol/fentanyl RASS goal 0 PRN ativan for breakthrough anxiety Acetaminophen allergy documented CV: Paroxysmal atrial fibrillation currently normal sinus rhythm Congestive heart failure unknown etiology. Last echocardiogram EF 50-55% Elevated HDL Followed by cardiology Sotalol 80 mg twice daily started by cardiology several days ago, hold home dose of metoprolol/ hydralazine Currently holding enalapril 20 mg daily in light of hypotension and acute kidney injury Echocardiogram: 09/06/12 - ejection fraction of 50-55% with normal wall motion Myocardial perfusion scan: 09/07/12 - slight ischemia in the LAD distribution with an ejection fraction of 60 Diurese as detailed below Resp: Acute respiratory failure with CO2 retention Obstructive sleep apnea -untreated Previous diagnosis of COPD Obesity hypoventilation syndrome Hemoptysis Bronchoscopy(09/19) with atypical cells on cell block suspicious for squamous cell carcinoma Last PFT showed mild restrictive lung disease. No obstructive component Followed by pulmonology Currently ipratropium aerosols every 4 hours scheduled Pharmacologic prophylaxis held due to hemoptysis, no source of bleeding noted on bronch 09/18 Tracheostomy done on 09/22 -Dr. House following for pulmonary-to decide further management for suspicious squamous cell carcinoma on bronchoscopy cell block specimen GI: Gastroesophageal reflux disease Tube feeds- vital high-protein at 65 cc an hour. Will require PEG tube placement Famotidine for GI prophylaxis Docusate sodium/senna 1 tablet twice daily for bowel regimen : No indication for Coello Endo: Acute hyperglycemia Sliding scale insulin Accu-Cheks to maintain euglycemia aspart insulin every 6 hours, better controlled on medium algorithm Renal: Acute kidney injury - improving CHAPIS inhibitor discontinued due to KIKE, still on hold as BP is 100s-110s systolic Monitor urine output Accurate I's and O's Renal ultrasound only remarkable for incidental renal cyst; urine eosinophils, sodium and creatinine unremarkable Avoid nephrotoxic medications Heme: Leukocytosis Normocytic anemia Suspicious squamous cell carcinoma on cell block of bronchoscopy specimen No indication for transfusion of blood products at this time. Monitor CBC daily. Hemoptysis appears to have stopped at this point. Oncology consult for further evaluation of abnormal biopsy from bronchoscopy suspicious for squamous cell carcinoma. ID: 09/15 sputum negative for influenza A and B No growth to date blood cultures x2 09/17 09/18 sputum culture positive for MRSA Empirically started on vancomycin and aztreonam for MRSA pneumonia, day #4 09/18 * ID consulted(Dr. Archuleta), vanco discontinued and patient was started on Zyvox. D/C aztreonam? Infectious disease consultation appreciated FEN: Hypernatremia Replace electrolytes as clinically indicated per ICU electrolyte protocol Continue free water flushes MSK: Elevated BMI Chronic low back pain Weight loss encouraged PT evaluate and treat Access -Utilize peripheral IV Prophylaxis -GI -famotidine -DVT -SCD/enoxaparin currently on hold due to hemoptysis and planned procedures. Will restart subcu Lovenox when okay with pulmonary and surgery. OVERALL: This patient remains critically ill but stable. She requires continued ICU level of care. Discussed with family coach, discussed with ID, discussed with [employer]. 35 minutes of critical care
[2018-09-25] MEDS: Artificial Tears Opth Drops 15 ML Bottle EACH EYE SCH ×3 (01:51→20:16)
[2018-09-25] MEDS: Oral Hygiene Kit OROPHARYNG SCH ×4 (03:06→23:23)
[2018-09-25 05:10] LABS: ABG Base Excess 0.4 mmol/L (-2-2); ABG PCO2 32 mmHg (38-42); ABG PO2 132 mmHG (61-120)
[2018-09-25] MEDS: Insulin NovoLOG Aspart Correctional Sugar Inj SQ SCH ×4 (05:41→23:59)
[2018-09-25 06:37] LABS: Baso % (Auto) 0.6 % (0.0-2.0); Eos # (Auto) 0.4 th/mm3 (0.0-0.4); Eos % (Auto) 5.7 % (0.0-4.0); Hematocrit 25.4 % (35.0-46.0); Hemoglobin 8.3 gm/dL (11.6-15.3); Lymph # (Auto) 1.2 th/mm3 (1.0-4.8); Lymph % (Auto) 18.4 % (9.0-44.0); Mean Corpuscular HGB Conc 32.6 % (32.0-36.0); Mean Corpuscular Volume 86.1 fL (80.0-100.0); Mean Platelet Volume 7.5 fL (7.0-11.0); Mono # (Auto) 0.7 th/mm3 (0.0-0.9); Mono % (Auto) 10.7 % (0.0-8.0); Neut # (Auto) 4.2 th/mm3 (1.8-7.7); Neut % (Auto) 64.6 % (16.0-70.0); Platelet Count 302 th/mm3 (150-450); Red Blood Count 2.95 mil/mm3 (4.00-5.30); Red Cell Distribution Width 16.1 % (11.6-17.2); White Blood Count 6.5 th/mm3 (4.0-11.0)
[2018-09-25 06:59] LABS: Alanine Aminotransferase 27 U/L (10-53); Anion Gap 10 meq/L (5-15); Aspartate Aminotransferase 43 U/L (15-37); Blood Urea Nitrogen 7 mg/dL (7-18); Calcium 7.8 mg/dL (8.5-10.1); Carbon Dioxide 24.7 meq/L (21.0-32.0); Chloride 111 meq/L (98-107); Glomerular Filtration Rate 89 mL/min (>89); Glucose,Random 75 mg/dL (74-106); Magnesium 2.5 mg/dL (1.5-2.5); Phosphorus 2.4 mg/dL (2.5-4.9); Potassium 3.9 meq/L (3.5-5.1); Sodium 146 meq/L (136-145)
[2018-09-25 07:01] LABS: Alkaline Phosphatase 67 U/L (45-117); Total Protein 5.8 g/dL (6.4-8.2)
[2018-09-25 07:21] LABS: Eosinophils 2 % (0-4); Lymphocytes 16 % (9-44); Metamyelocytes 3 % (0-1); Monocytes 7 % (0-8); Myelocytes 2 % (0-0); Ovalocytes 1+; Platelet Estimate Normal (Normal); Platelet Morphology Normal (Normal); Toxic Granulation 1+
[2018-09-25] MEDS: Famotidine PF Inj 20 MG/2 ML Vial IV.PUSH SCH ×2 (08:00→20:34)
[2018-09-25] MEDS: Simethicone 125 MG Chew Tablet PO SCH (08:00)
[2018-09-25] MEDS: Senna/Docusate Sodium 8.6/50 MG Tablet PO SCH ×2 (08:00→20:25)
[2018-09-25] MEDS: hydrALAZINE 10 MG Tablet PO SCH ×2 (08:00→20:25)
[2018-09-25] MEDS: QUEtiapine 100 MG Tablet PO SCH ×2 (08:00→20:34)
[2018-09-25] MEDS: Chlorhexidine 0.12% Oral Kit 15 ML UDC OROPHARYNG SCH ×2 (08:02→20:33)
--- NOTE | 2018-09-25 08:58 | P.PNFP ---
Subjective Interval history: Patient seen and examined this morning with nurse at bedside. She did well yesterday with CPAP trials but was put back on the ventilator overnight to rest. Patient states that she is feeling better although she felt that there are some issues with her NG tube and she wanted the position checked. She had questions about when she can get off the vent completely and go to rehab. <Eko R3,Soha U - 09/25/18 09:32> Results - Labs Result diagrams: 09/26/18 07:16 09/26/18 07:16 <Ray Fraire - 09/26/18 15:22> Abnormal lab results 09/26/18 09/26/18 09/26/18 Range/Units 07:16 07:16 13:39 RBC 3.03 L (4.00-5.30) mil/mm3 Hgb 8.3 L (11.6-15.3) gm/dL Hct 25.7 L (35.0-46.0) % Neut % (Auto) 71.7 H (16.0-70.0) % Placer % (Auto) 8.2 H (0.0-8.0) % Eos % (Auto) 4.8 H (0.0-4.0) % Chloride 109 H (98-107) meq/L Random Glucose 69 L (74-106) mg/dL Calcium 8.0 L (8.5-10.1) mg/dL Phosphorus 2.0 L (2.5-4.9) mg/dL AST 40 H (15-37) U/L Total Protein 5.8 L (6.4-8.2) g/dL Albumin 2.1 L (3.4-5.0) g/dL Procalcitonin 0.12 H (0.00-0.07) ng/mL Short CBC 09/26/18 Range/Units 07:16 WBC 7.0 (4.0-11.0) th/mm3 Hgb 8.3 L (11.6-15.3) gm/dL Hct 25.7 L (35.0-46.0) % Plt Count 345 (150-450) th/mm3 BMP 09/26/18 07:16 Sodium 144 Potassium 3.7 Chloride 109 H Carbon Dioxide 24.7 BUN 7 Creatinine 0.61 Calcium 8.0 L Liver Function 09/26/18 Range/Units 07:16 Total Bilirubin 0.4 (0.2-1.0) mg/dL AST 40 H (15-37) U/L ALT 34 (10-53) U/L Alkaline Phosphatase 67 (45-117) U/L Albumin 2.1 L (3.4-5.0) g/dL <Ray Fraire - 09/26/18 15:22> Abnormal lab results 09/24/18 09/24/18 09/25/18 Range/Units 11:45 11:45 04:57 RBC 2.96 L (4.00-5.30) mil/mm3 Hgb 8.1 L (11.6-15.3) gm/dL Hct 25.8 L (35.0-46.0) % MCHC 31.2 L (32.0-36.0) % Placer % (Auto) 11.8 H (0.0-8.0) % Eos % (Auto) 5.6 H (0.0-4.0) % Metamyelocytes % (Man) (0-1) % Myelocytes % (Man) (0-0) % Toxic Granulation (None) Ovalocytes (None) ABG pH 7.48 H (7.380-7.420) ABG pCO2 32 L (38-42) mmHg ABG pO2 132 H (61-120) mmHG Hemoglobin 9.6 L (12.0-16.0) G/DL Sodium (136-145) meq/L Potassium 3.2 L (3.5-5.1) meq/L Chloride 110 H (98-107) meq/L Estimated GFR 86 L (>89) mL/min Calcium 7.6 L (8.5-10.1) mg/dL Phosphorus (2.5-4.9) mg/dL AST (15-37) U/L Total Protein 5.6 L D (6.4-8.2) g/dL Albumin 2.0 L (3.4-5.0) g/dL 09/25/18 09/25/18 Range/Units 05:55 05:55 RBC 2.95 L (4.00-5.30) mil/mm3 Hgb 8.3 L (11.6-15.3) gm/dL Hct 25.4 L (35.0-46.0) % MCHC (32.0-36.0) % Placer % (Auto) 10.7 H (0.0-8.0) % Eos % (Auto) 5.7 H (0.0-4.0) % Metamyelocytes % (Man) 3 H (0-1) % Myelocytes % (Man) 2 H (0-0) % Toxic Granulation 1+ H (None) Ovalocytes 1+ H (None) ABG pH (7.380-7.420) ABG pCO2 (38-42) mmHg ABG pO2 (61-120) mmHG Hemoglobin (12.0-16.0) G/DL Sodium 146 H (136-145) meq/L Potassium (3.5-5.1) meq/L Chloride 111 H (98-107) meq/L Estimated GFR (>89) mL/min Calcium 7.8 L (8.5-10.1) mg/dL Phosphorus 2.4 L (2.5-4.9) mg/dL AST 43 H (15-37) U/L Total Protein 5.8 L (6.4-8.2) g/dL Albumin 2.0 L (3.4-5.0) g/dL Short CBC 09/24/18 09/25/18 Range/Units 11:45 05:55 WBC 6.5 6.5 (4.0-11.0) th/mm3 Hgb 8.1 L 8.3 L (11.6-15.3) gm/dL Hct 25.8 L 25.4 L (35.0-46.0) % Plt Count 294 302 (150-450) th/mm3 [facility] 09/24/18 09/25/18 11:45 05:55 Sodium 144 146 H Potassium 3.2 L 3.9 Chloride 110 H 111 H Carbon Dioxide 27.1 24.7 BUN 8 7 Creatinine 0.69 0.67 Calcium 7.6 L 7.8 L Liver Function 09/24/18 09/25/18 Range/Units 11:45 05:55 Total Bilirubin 0.3 0.3 (0.2-1.0) mg/dL AST 35 43 H (15-37) U/L ALT 20 27 (10-53) U/L Alkaline Phosphatase 65 67 (45-117) U/L Albumin 2.0 L 2.0 L (3.4-5.0) g/dL <Eko R3,Soha U - 09/25/18 08:58> - Imaging Impressions Chest X-Ray 09/26/18 00:00 CONCLUSION: Some improvement with minimal decrease in amount of interstitial edema Marked elevation of the left hemidiaphragm <Prevatte,Ray - 09/26/18 15:21> Physical Exam Vital signs: Vital Signs 09/25/18 15:22 09/25/18 16:00 09/25/18 16:01 Temperature 98.9 F Pulse Rate 61 61 61 Respiratory Rate 18 8 L 4 L Blood Pressure 114/57 L 105/53 L Pulse Oximetry 93 L 92 L 09/25/18 16:44 09/25/18 17:00 09/25/18 17:01 Temperature Pulse Rate 60 59 L Respiratory Rate 20 9 L 17 Blood Pressure 112/59 L Pulse Oximetry 92 L 09/25/18 18:00 09/25/18 18:01 09/25/18 19:00 Temperature Pulse Rate 68 64 63 Respiratory Rate 10 L 7 L 12 Blood Pressure 114/57 L 132/62 Pulse Oximetry 94 L 94 L 80 L 09/25/18 19:54 09/25/18 20:00 09/25/18 20:37 Temperature 98 F Pulse Rate 68 65 67 Respiratory Rate 19 14 14 Blood Pressure 144/66 H Pulse Oximetry 92 L 94 L 09/25/18 21:00 09/25/18 21:30 09/25/18 22:00 Temperature Pulse Rate 68 78 Respiratory Rate 18 22 16 Blood Pressure 141/68 H 149/76 H Pulse Oximetry 95 93 L 96 09/25/18 23:00 09/25/18 23:21 09/26/18 00:00 Temperature 98.1 F Pulse Rate 66 67 64 Respiratory Rate 16 21 18 Blood Pressure 139/64 135/65 Pulse Oximetry 94 L 95 09/26/18 01:00 09/26/18 02:00 09/26/18 03:00 Temperature Pulse Rate 71 70 64 Respiratory Rate 18 20 20 Blood Pressure 146/75 H 149/65 H 154/66 H Pulse Oximetry 95 94 L 94 L 09/26/18 03:54 09/26/18 04:00 09/26/18 04:32 Temperature 98.7 F Pulse Rate 74 72 Respiratory Rate 20 22 20 Blood Pressure 146/66 H Pulse Oximetry 95 96 09/26/18 05:00 09/26/18 05:01 09/26/18 06:00 Temperature Pulse Rate 67 68 66 Respiratory Rate 24 18 23 Blood Pressure 129/68 Pulse Oximetry 94 L 94 L 94 L 09/26/18 06:01 09/26/18 07:00 09/26/18 07:01 Temperature Pulse Rate 65 68 67 Respiratory Rate 19 18 19 Blood Pressure 143/77 H 140/77 Pulse Oximetry 94 L 95 95 09/26/18 08:00 09/26/18 08:01 09/26/18 08:14 Temperature Pulse Rate 71 69 71 Respiratory Rate 19 18 15 Blood Pressure 128/61 Pulse Oximetry 93 L 09/26/18 08:15 09/26/18 09:00 09/26/18 09:01 Temperature Pulse Rate 78 76 Respiratory Rate 14 19 18 Blood Pressure 123/60 Pulse Oximetry 100 80 L 79 L 09/26/18 09:20 09/26/18 10:00 09/26/18 10:01 Temperature Pulse Rate 99 H 80 79 Respiratory Rate 22 23 Blood Pressure 135/61 Pulse Oximetry 90 L 90 L 09/26/18 10:15 09/26/18 11:00 09/26/18 11:01 Temperature Pulse Rate 70 68 68 Respiratory Rate 18 18 Blood Pressure 89/49 L Pulse Oximetry 09/26/18 11:19 09/26/18 11:43 09/26/18 12:00 Temperature Pulse Rate 70 69 71 Respiratory Rate 18 19 Blood Pressure 103/55 L Pulse Oximetry 09/26/18 12:01 09/26/18 12:11 09/26/18 14:39 Temperature Pulse Rate 72 71 77 Respiratory Rate 21 18 Blood Pressure 106/53 L Pulse Oximetry 100 Intake & Output 09/25/18 09/26/18 09/26/18 18:59 06:59 18:59 Intake Total 1000 / 1000 1000 / 1000 290 / 290 Output Total 1100 / 1100 1200 / 1200 Balance -100 / -100 -200 / -200 290 / 290 Weight 149 kg Intake: IV 500 / 500 400 / 400 90 / 90 Azactam Inj 1,000 MG In NS Inj 200 / 200 100 / 100 90 / 90 100 ML @ 200 mls/hr IV.SIG Q8H PABLO Rx#:[id number] Zyvox 600 mg Premix 300 ML @ 300 / 300 300 / 300 300 mls/hr IV.SIG Q12H [facility] Rx#: [id number] Oral 0 / 0 Water Bolus Amount 200 / 200 300 / 300 Free Water Amount 300 / 300 300 / 300 200 / 200 Output: Urine Amount (Catheter) 1100 / 1100 1200 / 1200 Female External 1100 / 1100 1200 / 1200 Other: Date of Last Bowel Movement 09/21/18 09/21/18 09/25/18 # Incontinent Bowel Movements 1 <Prevatte,Ray - 09/26/18 15:22> Vital Signs 09/24/18 10:00 09/24/18 11:47 09/24/18 12:00 Temperature 98.3 F Pulse Rate 76 73 92 H Respiratory Rate 19 20 Blood Pressure 142/66 H Pulse Oximetry 93 L 92 L 09/24/18 14:00 09/24/18 16:00 09/24/18 16:17 Temperature 98.7 F Pulse Rate 86 71 67 Respiratory Rate 16 20 Blood Pressure 103/51 L Pulse Oximetry 90 L 98 09/24/18 18:00 09/24/18 19:00 09/24/18 19:16 Temperature Pulse Rate 63 63 65 Respiratory Rate 19 20 Blood Pressure 115/57 L 99/51 L Pulse Oximetry 68 L 90 L 09/24/18 19:30 09/24/18 19:46 09/24/18 20:00 Temperature 98.7 F Pulse Rate 65 64 69 Respiratory Rate 16 7 L 15 Blood Pressure 98/51 L 133/60 124/60 Pulse Oximetry 92 L 91 L 92 L 09/24/18 20:15 09/24/18 20:31 09/24/18 20:45 Temperature Pulse Rate 70 67 68 Respiratory Rate 15 19 26 H Blood Pressure 118/57 L 99/49 L 82/56 L Pulse Oximetry 92 L 94 L 95 09/24/18 20:55 09/24/18 21:00 09/24/18 21:04 Temperature Pulse Rate 69 74 Respiratory Rate 20 21 20 Blood Pressure 95/55 L Pulse Oximetry 96 96 09/24/18 22:00 09/24/18 23:00 09/24/18 23:55 Temperature Pulse Rate 66 61 61 Respiratory Rate 17 20 18 Blood Pressure 106/54 L 93/51 L Pulse Oximetry 95 97 97 02/24/19 00:00 09/25/18 01:00 09/25/18 02:00 Temperature 98.3 F Pulse Rate 67 63 55 L Respiratory Rate 15 20 18 Blood Pressure 100/76 114/55 L 104/53 L Pulse Oximetry 94 L 97 97 09/25/18 03:00 09/25/18 03:42 09/25/18 04:00 Temperature 98.8 F Pulse Rate 62 59 L 58 L Respiratory Rate 18 18 18 Blood Pressure 113/58 L 110/53 L Pulse Oximetry 96 97 09/25/18 04:15 09/25/18 06:00 09/25/18 07:00 Temperature Pulse Rate 66 65 Respiratory Rate 18 18 Blood Pressure Pulse Oximetry 96 97 Intake & Output 09/24/18 09/25/18 09/25/18 18:59 06:59 18:59 Intake Total 1400 / 1400 800 / 800 Output Total 1200 / 1200 1300 / 1300 Balance 200 / 200 -500 / -500 Weight 150 kg Intake: IV 600 / 600 500 / 500 Azactam Inj 1,000 MG In NS Inj 200 / 200 100 / 100 100 ML @ 200 mls/hr IV.SIG Q8H [facility] Rx#:[id number] Zyvox 600 mg Premix 300 ML @ 300 / 300 300 / 300 300 mls/hr IV.SIG Q12H [facility] Rx#: [id number] KCl 20 mEq Premix Inj 20 meq In 100 / 100 100 / 100 100 ml @ 50 mls/hr IV.SIG Q2H PRN Rx#:[id number] Oral 0 / 0 Water Bolus Amount 150 / 150 Free Water Amount 400 / 400 300 / 300 Other 250 / 250 Output: Urine 1200 / 1200 Urine Amount (Catheter) 1300 / 1300 Female External 1300 / 1300 Other: Other Intake Source Saline Solution Date of Last Bowel Movement 09/21/18 09/21/18 # Bowel Movements 0 <Eko R3,Soha U - 09/25/18 08:58> Narrative: Narrative: GENERAL: Intubated. Awake and alert SKIN: Warm and dry. HEENT: Atraumatic. Normocephalic. Pupils equal and round. EOMI. No scleral icterus. No injection or drainage. Oropharynx clear of lesions CARDIOVASCULAR: Regular rate and rhythm. No murmur appreciated. RESPIRATORY: CTAB, no increased work of breathing. Good air movement but distant heart sounds due to body habitus GASTROINTESTINAL: Abdomen soft, nondistended. Bowel sounds are present EXTREMITIES: Early venous stasis changes noted bilaterally. Bilateral 2+ pitting pre-tibial edema. <Eko Soha Giraldo U - 09/25/18 09:05> - Urinary Catheter Management Female External Cath placed during this visit: no <[facility],Ray - 09/26/18 15:21> no <Eko R3Soha U 09/25/18 10:11> Indwelling Urethral Catheter Cath placed during this visit: no <[facility],Ray 09/26/18 15:21> yes, but has since been removed by the nurse <Eko Soha Giraldo U 09/25/18 10:11> Reason for continuing: Not indwelling catheter <Eko Soha Giraldo U 09/25/18 08 :58> Removal date: 09/19/18 <Eko R3Soha U 09/25/18 08:58> Removal time: 18:00 <Eko R3Soha U 09/25/18 08:58> Straight Cath placed during this visit: no <[facility],Ray 09/26/18 15:21> yes, but has since been removed by the nurse <Fredo Soha Giraldo U 09/25/18 10:11> Reason for continuing: Not indwelling catheter <Eko Soha Giraldo U 09/25/18 08 :58> Insertion date: 09/20/18 <Eko R3Soha U 09/25/18 08:58> Insertion time: 02:45 <Eko R3,Soha U 09/25/18 08:58> Removal date: 09/20/18 <Eko R3,Soha U - 09/25/18 08:58> Removal time: 03:00 <Eko R3,Soha U 09/25/18 08:58> Assessment and Plan - Assessment (1) Acute respiratory failure Code(s): J96.00 - Acute respiratory failure, unspecified whether with hypoxia or hypercapnia Status: Acute (2) MRSA pneumonia Code(s): J15.212 - Pneumonia due to Methicillin resistant Staphylococcus aureus Status: Acute (3) RAD (obstructive sleep apnea) Code(s): G47.33 - Obstructive sleep apnea (adult) (pediatric) Status: Acute (4) Hypertension Code(s): I10 - Essential (primary) hypertension Status: Acute (5) COPD (chronic obstructive pulmonary disease) Code(s): J44.9 - Chronic obstructive pulmonary disease, unspecified Status: Acute (6) GERD (gastroesophageal reflux disease) Code(s): K21.9 - Gastro-esophageal reflux disease without esophagitis Status: Acute (7) Afib Code(s): I48.91 - Unspecified atrial fibrillation Status: Acute (8) Anxiety Code(s): F41.9 - Anxiety disorder, unspecified Status: Acute (9) Tremors of nervous system Code(s): R25.1 - Tremor, unspecified Status: Acute (10) Chronic back pain Code(s): M54.9 - Dorsalgia, unspecified; G89.29 - Other chronic pain Status: Acute (11) Anemia Code(s): D64.9 - Anemia, unspecified Status: Acute (12) KIKE (acute kidney injury) Code(s): N17.9 - Acute kidney failure, unspecified Status: Acute (13) Abnormal cytology Code(s): R89.6 - Abnormal cytological findings in specimens from other organs, systems and tissues Status: Acute (14) Heart failure with preserved ejection fraction Code(s): I50.30 - Unspecified diastolic (congestive) heart failure Status: Acute <Ray Fraire - 09/26/18 15:22> (1) Acute respiratory failure Code(s): J96.00 - Acute respiratory failure, unspecified whether with hypoxia or hypercapnia Status: Acute (2) MRSA pneumonia Code(s): J15.212 - Pneumonia due to Methicillin resistant Staphylococcus aureus Status: Acute (3) RAD (obstructive sleep apnea) Code(s): G47.33 - Obstructive sleep apnea (adult) (pediatric) Status: Acute (4) Hypertension Code(s): I10 - Essential (primary) hypertension Status: Acute (5) COPD (chronic obstructive pulmonary disease) Code(s): J44.9 - Chronic obstructive pulmonary disease, unspecified Status: Acute (6) GERD (gastroesophageal reflux disease) Code(s): K21.9 - Gastro-esophageal reflux disease without esophagitis Status: Acute (7) Afib Code(s): I48.91 - Unspecified atrial fibrillation Status: Acute (8) Anxiety Code(s): F41.9 - Anxiety disorder, unspecified Status: Acute (9) Tremors of nervous system Code(s): R25.1 - Tremor, unspecified Status: Acute (10) Chronic back pain Code(s): M54.9 - Dorsalgia, unspecified; G89.29 - Other chronic pain Status: Acute (11) Anemia Code(s): D64.9 - Anemia, unspecified Status: Acute (12) KIKE (acute kidney injury) Code(s): N17.9 - Acute kidney failure, unspecified Status: Acute (13) Abnormal cytology Code(s): R89.6 - Abnormal cytological findings in specimens from other organs, systems and tissues Status: Acute (14) Heart failure with preserved ejection fraction Code(s): I50.30 - Unspecified diastolic (congestive) heart failure Status: Acute <Eko R3,Soha U - 09/25/18 10:11> - Assessment and Plan 63-year-old female presented with shortness of breath presumed to be due to CHFpEF but likely related to her chronic obstructive sleep apnea. The patient was noted to be obtunded 09/15 with acute respiratory failure and marked CO2 retention requiring emergent intubation with mechanical ventilation. On 09/18, bronchoscopy was performed with removal of copious amounts of mucus mixed with bright red blood from both bronchi. She was also started on vancomycin and aztreonam due to fevers. Bronchial washings and sputum grew MRSA - ID consulted on 09/20/2018 - switched to Linezolid and aztreonam and now improved. Tracheostomy tube was placed on 09/22/18. Right middle lobe bronchial washings from 09/20/2018 is suspicious for squamous cell carcinoma. Oncology consulted and stated that pt is not a candidate for any further intervention at this time due to her respiratory status. Currently undergoing CPAP trials and doing well. Will also do T-piece trials. Acute hypercarbic respiratory failure -Tracheostomy tube in place -Continuing CPAP and T-piece trials -No pressors -Critical care managing Obstructive sleep apnea with obesity hypoventilation syndrome -Last PFT showed mild restrictive lung disease -Trach as above -Pulmonology on board. Patient known to Dr. House MRSA Pneumonia -Bronchial washings and sputum grew MRSA -No fever in the past 24 hours -Blood cultures no growth x 5 days -ID on board -Patient on Linezolid (started on 09/20) and aztreonam started on 09/18 Abnormal Cytology -Cell block from the right middle lobe washing on 09/18/18 showed: * Severely dysplastic squamous epithelium suspicious for squamous cell carcinoma * May explain bloody sputum and previous hemoptysis but will need further testing to confirm when she is much improved -Consult placed to oncology on 09/23 * Seen by Dr. Holcomb * Not sure of diagnosis, no solid mass seen on CT * At this time, she is not a candidate for any further investigation before treatment options are even considered * If her current status improves, she could possible undergo further testing in [address] scan and bronchoscopy -Palliative care on board Acute Kidney Injury - Resolved - Continue Furosemide - Strict Is and Os - Avoid nephrotoxic medications Heart Failure with Preserved Ejection Fraction -Echocardiogram: 09/06/12 - ejection fraction of 50-55% with normal wall motion -Monitor strict I/O's -Continue Furosemide AFIB -Stable -Continue home sotalol if BP can tolerate Hypertension -Monitor vital signs -Hold home BP medications due to low systolic BP around 110s COPD -The patient carries a diagnosis of COPD per chart review -Possible heavy secondhand smoke exposure or symptoms all stemming from RAD -Spiriva nebulizer 0.5 mg q4h scheduled - she reports allergy to albuterol Anemia -Chronic anemia -Currently stable, continue to monitor CBC daily Anxiety -Continue home lorazepam 1 mg p.o. twice daily prn GERD -On Famotidine for ppx Chronic back pain/arthritis -PT evaluate and treat while in the hospital once patient is completely off the ventilator FEN/ppx F: Free water flushes E: On ICU electrolyte protocol N: NPO except meds. RD recommends Jevity 1.5 @ 55mL/hr to provide 1980kcal, 84g of protein, and 1003mL of free water to best meet pt's updated needs -DVT ppx: Lovenox held due to hemoptysis, SCDs in place -GI ppx: Famotidine, Senna/Docusate <Soha Potter U - 09/25/18 09:32> Discussed Condition With: Pt's nurse <EkSoha Cuello U - 09/25/18 09:32> Discharge Planning: Pending clinical improvement <Soha Potter - 09/25/18 09:32> - Attending Attestation Resident documentation reviewed. Management plan discussed with Dr. Richardson. Agree with assessment and plan as documented. <Ray Fraire - 09/26/18 15:21>
--- NOTE | 2018-09-25 17:18 | P.PNCC ---
Subjective Subjective Remarks/Hospital Course: This is a 63-year-old female. Date of admission 09/14/2018. Date of consultation 09/15/2018. Past medical history includes paroxysmal atrial fibrillation currently normal sinus rhythm, elevated BMI, congestive heart failure with last documented ejection fraction 55% 2012, COPD, hypertension, left bundle branch block essential tremors. Patient originally planned to [email or web address] on 09/14/2018 with worsening shortness of breath slowly on coming over the past couple weeks. She also noticed increasing bilateral lower extremity edema. 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 Silverman on Wednesday who asked her to drink as much fluid and juice as she possibly could and reduce her dose of Lasix from 20 mg twice a day to once a day. During current hospitalization, patient resume home medications of enalapril, furosemide, metoprolol and hydralazine. Patient seen by cardiology and pulmonology. Refusing to be from central sleep apnea. Currently on ipratropium aerosols every [address] House. Seen by Dr. Chew. Switch to sotalol 80 mg twice daily and diuresis furosemide 40 mg IV twice daily. This morning, patient was found obtunded. PH was 7.17. Retaining CO2. Transfer to ICU and intubated using 20 mg etomidate. 09/16: No acute distress on mechanical ventilation. Arousable but not following commands. Tolerating tube feeding. Decreased urine output. Will Place Coello catheter to monitor accurate I's and O's 09/17: Failed extubation yesterday after 20 minutes. Extremely anxious. Currently on low-dose dexmedetomidine drip and bradycardic. Tube feeds restarted. Urine output has increased. 09/18: Some hemoptysis overnight. Enoxaparin held. Currently on CPAP trials at 40%. Started on vancomycin and aztreonam for fevers. Arousable and follows commands 09/19: Patient failed trial of extubation again yesterday, required bronchoscopy due to bloody secretions from ETT but no active bleeding was seen. 09/20: General surgery consulted for tracheostomy, patient was agreeable when I spoke with her yesterday but her daughter was hesitant. Awaiting their decision. The patient's sputum cultures are positive for MRSA, will consult ID. The patient wrote on a piece of paper to me that she is having hallucinations from precedex. She is requesting that I discontinue this medication. 09/21: No overnight events. Patient became tachypneic and appeared anxious and distressed when I briefly attempted to switch her to spontaneous breathing trial , placed back on AC. Tentatively planned for tracheostomy tomorrow. 09/22: Awake and alert. Remains orally intubated on mechanical ventilation. Awaiting tracheostomy. 09/23: Awake and alert despite being on propofol. Gets anxious. Status post tracheostomy yesterday. Started CPAP trials. Tolerating tube feeds via NG tube 09/24: Tolerating SBT well today. PEEP of 8, 50% FiO2. We will attempt T-piece trials 09/25: No significant events overnight, continue T-piece trials daily Objective Vital Signs / I&O: Vital Signs 09/24/18 18:00 09/24/18 19:00 09/24/18 19:16 Temperature Pulse Rate 63 63 65 Respiratory Rate 19 20 Blood Pressure 115/57 L 99/51 L Pulse Oximetry 68 L 90 L 09/24/18 19:30 09/24/18 19:46 09/24/18 20:00 Temperature 98.7 F Pulse Rate 65 64 69 Respiratory Rate 16 7 L 15 Blood Pressure 98/51 L 133/60 124/60 Pulse Oximetry 92 L 91 L 92 L 09/24/18 20:15 09/24/18 20:31 09/24/18 20:45 Temperature Pulse Rate 70 67 68 Respiratory Rate 15 19 26 H Blood Pressure 118/57 L 99/49 L 82/56 L Pulse Oximetry 92 L 94 L 95 09/24/18 20:55 09/24/18 21:00 09/24/18 21:04 Temperature Pulse Rate 69 74 Respiratory Rate 20 21 20 Blood Pressure 95/55 L Pulse Oximetry 96 96 09/24/18 22:00 09/24/18 23:00 09/24/18 23:55 Temperature Pulse Rate 66 61 61 Respiratory Rate 17 20 18 Blood Pressure 106/54 L 93/51 L Pulse Oximetry 95 97 97 09/25/18 00:00 09/25/18 01:00 09/25/18 02:00 Temperature 98.3 F Pulse Rate 67 63 55 L Respiratory Rate 15 20 18 Blood Pressure 100/76 114/55 L 104/53 L Pulse Oximetry 94 L 97 97 09/25/18 03:00 09/25/18 03:42 09/25/18 04:00 Temperature 98.8 F Pulse Rate 62 59 L 58 L Respiratory Rate 18 18 18 Blood Pressure 113/58 L 110/53 L Pulse Oximetry 96 97 09/25/18 04:15 09/25/18 06:00 09/25/18 07:00 Temperature Pulse Rate 66 65 Respiratory Rate 18 18 Blood Pressure Pulse Oximetry 96 97 09/25/18 08:00 09/25/18 10:00 09/25/18 10:26 Temperature 98.7 F Pulse Rate 70 60 Respiratory Rate 16 18 Blood Pressure 117/59 L Pulse Oximetry 97 09/25/18 11:24 09/25/18 12:00 09/25/18 13:32 Temperature 98.3 F Pulse Rate 66 66 Respiratory Rate 21 12 21 Blood Pressure 96/51 L Pulse Oximetry 94 L 95 09/25/18 14:00 09/25/18 15:22 09/25/18 16:44 Temperature Pulse Rate 62 61 Respiratory Rate 18 20 Blood Pressure Pulse Oximetry 92 L Intake & Output 09/24/18 09/25/18 09/25/18 18:59 06:59 18:59 Intake Total 1400 / 1400 800 / 800 200 / 200 Output Total 1200 / 1200 1300 / 1300 Balance 200 / 200 -500 / -500 200 / 200 Weight 150 kg Intake: IV 600 / 600 500 / 500 Azactam Inj 1,000 MG In NS Inj 200 / 200 100 / 100 100 ML @ 200 mls/hr IV.SIG Q8H PABLO Rx#:[id number] Zyvox 600 mg Premix 300 ML @ 300 / 300 300 / 300 300 mls/hr IV.SIG Q12H PABLO Rx#: [id number] KCl 20 mEq Premix Inj 20 meq In 100 / 100 100 / 100 100 ml @ 50 mls/hr IV.SIG Q2H PRN Rx#:[id number] Oral 0 / 0 Water Bolus Amount 150 / 150 Free Water Amount 400 / 400 300 / 300 200 / 200 Other 250 / 250 Output: Urine 1200 / 1200 Urine Amount (Catheter) 1300 / 1300 Female External 1300 / 1300 Other: Other Intake Source Saline Solution Date of Last Bowel Movement 09/21/18 09/21/18 09/21/18 # Bowel Movements 0 Result Diagrams: 09/25/18 05:55 09/25/18 05:55 Objective Remarks: GENERAL: awake and alert SKIN: No rashes or lesions HEAD: NCAT EYES: PERRL ENT: Mucous membranes pink and moist. NECK: Tracheostomy in place CARDIOVASCULAR: Regular rate and rhythm RESPIRATORY: Diminished breath sounds due to body habitus, secretions thick but not bloody GASTROINTESTINAL: Abdomen soft, non-tender, obese MUSCULOSKELETAL: Trace nonpitting bilateral lower extremity edema NEUROLOGICAL: RASS 0, awake and alert, nods/ shakes head appropriately to yes/ no questions Assessment and Plan - Assessment and Plan Plan: 63yF presenting with acute hypoxic respiratory failure and failed attempt at extubation x 2 Neuro/Psych: Anxiety disorder Chronic benzodiazepine use RASS goal 0 PRN ativan for breakthrough anxiety Acetaminophen allergy documented CV: Paroxysmal atrial fibrillation currently normal sinus rhythm Congestive heart failure unknown etiology. Last echocardiogram EF 50-55% Elevated HDL Followed by cardiology Sotalol 80 mg twice daily started by cardiology several days ago, hold home dose of metoprolol/ hydralazine Currently holding enalapril 20 mg daily in light of hypotension and acute kidney injury Echocardiogram: 09/06/12 - ejection fraction of 50-55% with normal wall motion Myocardial perfusion scan: 09/07/12 - slight ischemia in the LAD distribution with an ejection fraction of 60 Diurese as detailed below Resp: Acute respiratory failure with CO2 retention Obstructive sleep apnea -untreated Previous diagnosis of COPD Obesity hypoventilation syndrome Hemoptysis Bronchoscopy(09/19) with atypical cells on cell block suspicious for squamous cell carcinoma Last PFT showed mild restrictive lung disease. No obstructive component Followed by pulmonology Currently ipratropium aerosols every 4 hours scheduled Pharmacologic prophylaxis held due to hemoptysis, no source of bleeding noted on bronch 09/18 Tracheostomy done on 09/22 -Dr. House following for pulmonary-to decide further management for suspicious squamous cell carcinoma on bronchoscopy cell block specimen Continue to attempt to wean to trach collar's daily GI: Gastroesophageal reflux disease Tube feeds- vital high-protein at 65 cc an hour. Will require PEG tube placement Famotidine for GI prophylaxis Docusate sodium/senna 1 tablet twice daily for bowel regimen : No indication for Coello Endo: Acute hyperglycemia Sliding scale insulin Accu-Cheks to maintain euglycemia aspart insulin every 6 hours, better controlled on medium algorithm Renal: Acute kidney injury - improving CHAPIS inhibitor discontinued due to KIKE, still on hold as BP is 100s-110s systolic Monitor urine output Accurate I's and O's Renal ultrasound only remarkable for incidental renal cyst; urine eosinophils, sodium and creatinine unremarkable Avoid nephrotoxic medications Heme: Leukocytosis Normocytic anemia Suspicious squamous cell carcinoma on cell block of bronchoscopy specimen No indication for transfusion of blood products at this time. Monitor CBC daily. Hemoptysis appears to have stopped at this point. Oncology consult for further evaluation of abnormal biopsy from bronchoscopy suspicious for squamous cell carcinoma. ID: 09/15 sputum negative for influenza A and B No growth to date blood cultures x2 09/17 09/18 sputum culture positive for MRSA Empirically started on vancomycin and aztreonam for MRSA pneumonia, day #7 09/18 * ID consulted(Dr. Archuleta), vanco discontinued and patient was started on Zyvox. D/C aztreonam? Infectious disease consultation appreciated FEN: Hypernatremia Replace electrolytes as clinically indicated per ICU electrolyte protocol Continue free water flushes MSK: Elevated BMI Chronic low back pain Weight loss encouraged PT evaluate and treat when extubated Access -Utilize peripheral IV DVT GI prophylaxis -GI -famotidine -DVT -SCD/enoxaparin currently on hold due to hemoptysis and planned procedures. Will restart subcu Lovenox when okay with pulmonary and surgery. Discussed with family life counselor, discussed with ID, discussed with [employer]. Level 3
--- NOTE | 2018-09-25 17:44 | P.PN ---
Subjective Interval history: ALEERT NO DISTRESS ON VENT POST TRACHEOSTOMY Physical Exam Vital signs: Vital Signs 09/24/18 18:00 09/24/18 19:00 09/24/18 19:16 Temperature Pulse Rate 63 63 65 Respiratory Rate 19 20 Blood Pressure 115/57 L 99/51 L Pulse Oximetry 68 L 90 L 09/24/18 19:30 09/24/18 19:46 09/24/18 20:00 Temperature 98.7 F Pulse Rate 65 64 69 Respiratory Rate 16 7 L 15 Blood Pressure 98/51 L 133/60 124/60 Pulse Oximetry 92 L 91 L 92 L 09/24/18 20:15 09/24/18 20:31 09/24/18 20:45 Temperature Pulse Rate 70 67 68 Respiratory Rate 15 19 26 H Blood Pressure 118/57 L 99/49 L 82/56 L Pulse Oximetry 92 L 94 L 95 09/24/18 20:55 09/24/18 21:00 09/24/18 21:04 Temperature Pulse Rate 69 74 Respiratory Rate 20 21 20 Blood Pressure 95/55 L Pulse Oximetry 96 96 09/24/18 22:00 09/24/18 23:00 09/24/18 23:55 Temperature Pulse Rate 66 61 61 Respiratory Rate 17 20 18 Blood Pressure 106/54 L 93/51 L Pulse Oximetry 95 97 97 09/25/18 00:00 09/25/18 01:00 09/25/18 02:00 Temperature 98.3 F Pulse Rate 67 63 55 L Respiratory Rate 15 20 18 Blood Pressure 100/76 114/55 L 104/53 L Pulse Oximetry 94 L 97 97 09/25/18 03:00 09/25/18 03:42 09/25/18 04:00 Temperature 98.8 F Pulse Rate 62 59 L 58 L Respiratory Rate 18 18 18 Blood Pressure 113/58 L 110/53 L Pulse Oximetry 96 97 09/25/18 04:15 09/25/18 06:00 09/25/18 07:00 Temperature Pulse Rate 66 65 Respiratory Rate 18 18 Blood Pressure Pulse Oximetry 96 97 09/25/18 08:00 09/25/18 10:00 09/25/18 10:26 Temperature 98.7 F Pulse Rate 70 60 Respiratory Rate 16 18 Blood Pressure 117/59 L Pulse Oximetry 97 09/25/18 11:24 09/25/18 12:00 09/25/18 13:32 Temperature 98.3 F Pulse Rate 66 66 Respiratory Rate 21 12 21 Blood Pressure 96/51 L Pulse Oximetry 94 L 95 09/25/18 14:00 09/25/18 15:22 09/25/18 16:44 Temperature Pulse Rate 62 61 Respiratory Rate 18 20 Blood Pressure Pulse Oximetry 92 L Intake & Output 09/24/18 09/25/18 09/25/18 18:59 06:59 18:59 Intake Total 1400 / 1400 800 / 800 200 / 200 Output Total 1200 / 1200 1300 / 1300 Balance 200 / 200 -500 / -500 200 / 200 Weight 150 kg Intake: IV 600 / 600 500 / 500 Azactam Inj 1,000 MG In NS Inj 200 / 200 100 / 100 100 ML @ 200 mls/hr IV.SIG Q8H PABLO Rx#:[id number] Zyvox 600 mg Premix 300 ML @ 300 / 300 300 / 300 300 mls/hr IV.SIG Q12H PABLO Rx#: [id number] KCl 20 mEq Premix Inj 20 meq In 100 / 100 100 / 100 100 ml @ 50 mls/hr IV.SIG Q2H PRN Rx#:[id number] Oral 0 / 0 Water Bolus Amount 150 / 150 Free Water Amount 400 / 400 300 / 300 200 / 200 Other 250 / 250 Output: Urine 1200 / 1200 Urine Amount (Catheter) 1300 / 1300 Female External 1300 / 1300 Other: Other Intake Source Saline Solution Date of Last Bowel Movement 09/21/18 09/21/18 09/21/18 # Bowel Movements 0 Narrative: Narrative: GENERAL: Intubated. Awake and alert SKIN: Warm and dry. HEENT: Atraumatic. Normocephalic. Pupils equal and round. EOMI. No scleral icterus. No injection or drainage. Oropharynx clear of lesions CARDIOVASCULAR: Regular rate and rhythm. No murmur appreciated. RESPIRATORY: CTAB, no increased work of breathing. Good air movement but distant heart sounds due to body habitus GASTROINTESTINAL: Abdomen soft, nondistended. Bowel sounds are present EXTREMITIES: Early venous stasis changes noted bilaterally. Bilateral 2+ pitting pre-tibial edema. - Urinary Catheter Management Female External Cath placed during this visit: no Straight Cath placed during this visit: yes, but has since been removed by the nurse Reason for continuing: Not indwelling catheter Insertion date: 09/20/18 Insertion time: 02:45 Removal date: 09/20/18 Removal time: 03:00 Indwelling Urethral Catheter Cath placed during this visit: yes, but has since been removed by the nurse Reason for continuing: Not indwelling catheter Removal date: 09/19/18 Removal time: 18:00 Results - Labs CBC & Chem 7: 09/25/18 05:55 09/25/18 05:55 Laboratory Results - last 24 hr 09/24/18 09/25/18 09/25/18 23:19 04:57 05:18 WBC RBC Hgb Hct MCV MCH MCHC RDW Plt Count MPV Prelim Diff (Auto) Neut % (Auto) Lymph % (Auto) Coffee % (Auto) Eos % (Auto) Baso % (Auto) Neut # (Auto) Lymph # (Auto) Coffee # (Auto) Eos # (Auto) Baso # (Auto) WBC Differential Seg Neuts % (Manual) Band Neuts % (Manual) Lymphocytes % (Manual) Monocytes % (Manual) Eosinophils % (Manual) Basophils % (Manual) Metamyelocytes % (Man) Myelocytes % (Man) Abs Neuts (Manual) Differential Comment Toxic Granulation Platelet Estimate Platelet Morphology Ovalocytes Puncture Site Right radial Patient Temperature 98.6 O2 Saturation 97 ABG pH 7.48 H ABG pCO2 32 L ABG pO2 132 H ABG HCO3 24 ABG O2 Content 13.3 ABG Base Excess 0.4 ABG Methemoglobin 1.4 Nilesh Test Present Hemoglobin 9.6 L Carboxyhemoglobin 0.9 O2 Delivery Device Ventilator Vent Setting Prvc18/600/1.0/+8 Inspired O2 50 Critical Value No Sodium Potassium Chloride Carbon Dioxide Anion Gap BUN Creatinine Estimated GFR POC Glucose 91 82 Random Glucose Calcium Phosphorus Magnesium Total Bilirubin AST ALT Alkaline Phosphatase Total Protein Albumin 09/25/18 09/25/18 09/25/18 05:55 05:55 12:51 WBC 6.5 RBC 2.95 L Hgb 8.3 L Hct 25.4 L MCV 86.1 MCH 28.0 MCHC 32.6 RDW 16.1 Plt Count 302 MPV 7.5 Prelim Diff (Auto) Slide review pending Neut % (Auto) 64.6 Lymph % (Auto) 18.4 Coffee % (Auto) 10.7 H Eos % (Auto) 5.7 H Baso % (Auto) 0.6 Neut # (Auto) 4.2 Lymph # (Auto) 1.2 Coffee # (Auto) 0.7 Eos # (Auto) 0.4 Baso # (Auto) 0.0 WBC Differential Manual diff final Seg Neuts % (Manual) 68 Band Neuts % (Manual) 1 Lymphocytes % (Manual) 16 Monocytes % (Manual) 7 Eosinophils % (Manual) 2 Basophils % (Manual) 1 Metamyelocytes % (Man) 3 H Myelocytes % (Man) 2 H Abs Neuts (Manual) 4.8 Differential Comment . Toxic Granulation 1+ H Platelet Estimate Normal Platelet Morphology Normal Ovalocytes 1+ H Puncture Site Patient Temperature O2 Saturation ABG pH ABG pCO2 ABG pO2 ABG HCO3 ABG O2 Content ABG Base Excess ABG Methemoglobin Nilesh Test Hemoglobin Carboxyhemoglobin O2 Delivery Device Vent Setting Inspired O2 Critical Value Sodium 146 H Potassium 3.9 Chloride 111 H Carbon Dioxide 24.7 Anion Gap 10 BUN 7 Creatinine 0.67 Estimated GFR 89 POC Glucose 70 Random Glucose 75 Calcium 7.8 L Phosphorus 2.4 L Magnesium 2.5 Total Bilirubin 0.3 AST 43 H ALT 27 Alkaline Phosphatase 67 Total Protein 5.8 L Albumin 2.0 L 09/25/18 17:23 WBC RBC Hgb Hct MCV MCH MCHC RDW Plt Count MPV Prelim Diff (Auto) Neut % (Auto) Lymph % (Auto) Coffee % (Auto) Eos % (Auto) Baso % (Auto) Neut # (Auto) Lymph # (Auto) Coffee # (Auto) Eos # (Auto) Baso # (Auto) WBC Differential Seg Neuts % (Manual) Band Neuts % (Manual) Lymphocytes % (Manual) Monocytes % (Manual) Eosinophils % (Manual) Basophils % (Manual) Metamyelocytes % (Man) Myelocytes % (Man) Abs Neuts (Manual) Differential Comment Toxic Granulation Platelet Estimate Platelet Morphology Ovalocytes Puncture Site Patient Temperature O2 Saturation ABG pH ABG pCO2 ABG pO2 ABG HCO3 ABG O2 Content ABG Base Excess ABG Methemoglobin Nilesh Test Hemoglobin Carboxyhemoglobin O2 Delivery Device Vent Setting Inspired O2 Critical Value Sodium Potassium Chloride Carbon Dioxide Anion Gap BUN Creatinine Estimated GFR POC Glucose 79 Random Glucose Calcium Phosphorus Magnesium Total Bilirubin AST ALT Alkaline Phosphatase Total Protein Albumin Microbiology 09/18/18 13:00 Bronchial Washings - Right Middle Lobe Fungal Smear - Final No fungal elements seen 09/18/18 13:00 Bronchial Washings - Right Middle Lobe Fungal Culture - Preliminary No growth in 1 week 09/18/18 13:00 Bronchial Washings - Right Middle Lobe Acid Fast Bacilli Smear - Final No acid fast bacilli seen 09/18/18 13:00 Bronchial Washings - Right Middle Lobe Mycobacterial Culture - Preliminary No growth in 1 week Assessment and Plan - Plan RESPIRATORY FAILURE COPD CHF RAD AFIB PLAN vent support bronchodilator therapy WEAN TOLERATED
[2018-09-26] MEDS: Artificial Tears Opth Drops 15 ML Bottle EACH EYE SCH ×3 (02:28→18:54)
[2018-09-26] MEDS: Oral Hygiene Kit OROPHARYNG SCH ×3 (03:58→18:53)
[2018-09-26] MEDS: Insulin NovoLOG Aspart Correctional Sugar Inj SQ SCH ×3 (06:15→18:54)
[2018-09-26 07:45] LABS: Baso # (Auto) 0.1 th/mm3 (0.0-0.2); Baso % (Auto) 0.7 % (0.0-2.0); Eos # (Auto) 0.3 th/mm3 (0.0-0.4); Eos % (Auto) 4.8 % (0.0-4.0); Hematocrit 25.7 % (35.0-46.0); Hemoglobin 8.3 gm/dL (11.6-15.3); Lymph % (Auto) 14.6 % (9.0-44.0); Mean Corpuscular HGB Conc 32.2 % (32.0-36.0); Mean Corpuscular Hemoglobin 27.4 pg (27.0-34.0); Mean Corpuscular Volume 85.1 fL (80.0-100.0); Mono # (Auto) 0.6 th/mm3 (0.0-0.9); Mono % (Auto) 8.2 % (0.0-8.0); Neut % (Auto) 71.7 % (16.0-70.0); Platelet Count 345 th/mm3 (150-450); Red Blood Count 3.03 mil/mm3 (4.00-5.30)
[2018-09-26 08:13] LABS: Alanine Aminotransferase 34 U/L (10-53); Albumin 2.1 g/dL (3.4-5.0); Anion Gap 10 meq/L (5-15); Aspartate Aminotransferase 40 U/L (15-37); Blood Urea Nitrogen 7 mg/dL (7-18); Carbon Dioxide 24.7 meq/L (21.0-32.0); Chloride 109 meq/L (98-107); Glomerular Filtration Rate Greater Than 89 mL/min (>89); Glucose,Random 69 mg/dL (74-106); Magnesium 2.3 mg/dL (1.5-2.5); Potassium 3.7 meq/L (3.5-5.1); Sodium 144 meq/L (136-145)
[2018-09-26 08:15] LABS: Alkaline Phosphatase 67 U/L (45-117); Total Protein 5.8 g/dL (6.4-8.2)
--- NOTE | 2018-09-26 08:52 | P.PNFP ---
Subjective Interval history: Patient was seen and examined this morning. She is slowly feeling better but states that after her last medication was administered through her NG tube, she experienced numbness in her right leg which is still persistent in a focal area in her right thigh. She did okay overnight per the night nurse. She did not have any fevers. She tolerated CPAP until 1 AM this morning and was put back on the ventilator. She did not do well with T-piece trials yesterday. She reports burning in her vaginal area. <Eko R3,Soha U - 09/26/18 10:02> Results - Labs Result diagrams: 09/28/18 05:23 09/28/18 05:23 <Filomena Williamson - 09/29/18 12:26> Abnormal lab results 09/26/18 09/26/18 Range/Units 07:16 07:16 RBC 3.03 L (4.00-5.30) mil/mm3 Hgb 8.3 L (11.6-15.3) gm/dL Hct 25.7 L (35.0-46.0) % Neut % (Auto) 71.7 H (16.0-70.0) % Pierce % (Auto) 8.2 H (0.0-8.0) % Eos % (Auto) 4.8 H (0.0-4.0) % Chloride 109 H (98-107) meq/L Random Glucose 69 L (74-106) mg/dL Calcium 8.0 L (8.5-10.1) mg/dL Phosphorus 2.0 L (2.5-4.9) mg/dL AST 40 H (15-37) U/L Total Protein 5.8 L (6.4-8.2) g/dL Albumin 2.1 L (3.4-5.0) g/dL Short CBC 09/26/18 Range/Units 07:16 WBC 7.0 (4.0-11.0) th/mm3 Hgb 8.3 L (11.6-15.3) gm/dL Hct 25.7 L (35.0-46.0) % Plt Count 345 (150-450) th/mm3 BMP 09/26/18 07:16 Sodium 144 Potassium 3.7 Chloride 109 H Carbon Dioxide 24.7 BUN 7 Creatinine 0.61 Calcium 8.0 L Liver Function 09/26/18 Range/Units 07:16 Total Bilirubin 0.4 (0.2-1.0) mg/dL AST 40 H (15-37) U/L ALT 34 (10-53) U/L Alkaline Phosphatase 67 (45-117) U/L Albumin 2.1 L (3.4-5.0) g/dL <Eko Soha Giraldo U - 09/26/18 08:52> Physical Exam Vital signs: Vital Signs 09/28/18 12:57 Respiratory Rate 19 Pulse Oximetry 96 Intake & Output 09/28/18 09/29/18 09/29/18 18:59 06:59 18:59 Intake Total 100 / 100 Balance 100 / 100 Intake: Free Water Amount 100 / 100 Other: Date of Last Bowel Movement 09/25/18 <Filomena Williamson M - 09/29/18 12:26> Vital Signs 09/25/18 09:00 09/25/18 09:01 09/25/18 10:00 Temperature Pulse Rate 78 75 71 Respiratory Rate 13 9 L 16 Blood Pressure 102/51 L Pulse Oximetry 89 L 09/25/18 10:01 09/25/18 10:26 09/25/18 11:00 Temperature Pulse Rate 69 67 Respiratory Rate 9 L 18 10 L Blood Pressure 102/53 L Pulse Oximetry 88 L 81 L 09/25/18 11:01 09/25/18 11:24 09/25/18 12:00 Temperature 98.3 F Pulse Rate 67 66 66 Respiratory Rate 14 21 2 L Blood Pressure 108/51 L 96/51 L Pulse Oximetry 82 L 94 L 09/25/18 12:01 09/25/18 13:00 09/25/18 13:01 Temperature Pulse Rate 69 68 66 Respiratory Rate 22 12 12 Blood Pressure 96/51 L 97/51 L Pulse Oximetry 86 L 09/25/18 13:32 09/25/18 14:00 09/25/18 14:01 Temperature Pulse Rate 62 62 Respiratory Rate 21 1 L 0 L Blood Pressure 89/53 L Pulse Oximetry 95 92 L 93 L 09/25/18 15:00 09/25/18 15:22 09/25/18 16:00 Temperature 98.9 F Pulse Rate 63 61 61 Respiratory Rate 0 L 18 8 L Blood Pressure 98/55 L 114/57 L Pulse Oximetry 92 L 93 L 09/25/18 16:01 09/25/18 16:44 09/25/18 17:00 Temperature Pulse Rate 61 60 Respiratory Rate 4 L 20 9 L Blood Pressure 105/53 L Pulse Oximetry 92 L 92 L 09/25/18 17:01 09/25/18 18:00 09/25/18 18:01 Temperature Pulse Rate 59 L 68 64 Respiratory Rate 17 10 L 7 L Blood Pressure 112/59 L 114/57 L Pulse Oximetry 94 L 94 L 09/25/18 19:00 09/25/18 19:54 09/25/18 20:00 Temperature 98 F Pulse Rate 63 68 65 Respiratory Rate 12 19 14 Blood Pressure 132/62 Pulse Oximetry 80 L 92 L 09/25/18 20:37 09/25/18 21:00 09/25/18 21:30 Temperature Pulse Rate 67 68 Respiratory Rate 14 18 22 Blood Pressure 144/66 H 141/68 H Pulse Oximetry 94 L 95 93 L 09/25/18 22:00 09/25/18 23:00 09/25/18 23:21 Temperature Pulse Rate 78 66 67 Respiratory Rate 16 16 21 Blood Pressure 149/76 H 139/64 Pulse Oximetry 96 94 L 09/26/18 00:00 09/26/18 01:00 09/26/18 02:00 Temperature 98.1 F Pulse Rate 64 71 70 Respiratory Rate 18 18 20 Blood Pressure 135/65 146/75 H 149/65 H Pulse Oximetry 95 95 94 L 09/26/18 03:00 09/26/18 03:54 09/26/18 04:00 Temperature 98.7 F Pulse Rate 64 74 72 Respiratory Rate 20 20 22 Blood Pressure 154/66 H 146/66 H Pulse Oximetry 94 L 95 09/26/18 04:32 09/26/18 06:00 09/26/18 08:14 Temperature Pulse Rate 64 71 Respiratory Rate 20 15 Blood Pressure Pulse Oximetry 96 09/26/18 08:15 Temperature Pulse Rate Respiratory Rate 14 Blood Pressure Pulse Oximetry 100 Intake & Output 09/25/18 09/26/18 09/26/18 18:59 06:59 18:59 Intake Total 1000 / 1000 1000 / 1000 Output Total 1100 / 1100 1200 / 1200 Balance -100 / -100 -200 / -200 Weight 149 kg Intake: IV 500 / 500 400 / 400 Azactam Inj 1,000 MG In NS Inj 200 / 200 100 / 100 100 ML @ 200 mls/hr IV.SIG Q8H PABLO Rx#:[id number] Zyvox 600 mg Premix 300 ML @ 300 / 300 300 / 300 300 mls/hr IV.SIG Q12H PABLO Rx#: [id number] Oral 0 / 0 Water Bolus Amount 200 / 200 300 / 300 Free Water Amount 300 / 300 300 / 300 Output: Urine Amount (Catheter) 1100 / 1100 1200 / 1200 Female External 1100 / 1100 1200 / 1200 Other: Date of Last Bowel Movement 09/21/18 09/21/18 # Incontinent Bowel Movements 1 <Eko R3Soha U - 09/26/18 08:52> Narrative: Narrative: GENERAL: Intubated. Awake and alert, trach collar in place SKIN: Warm and dry. Some redness in her inner thigh area, external female catheter in place HEENT: Atraumatic. Normocephalic. Pupils equal and round. EOMI. No scleral icterus. No injection or drainage. Oropharynx clear of lesions CARDIOVASCULAR: Regular rate and rhythm. No murmur appreciated. RESPIRATORY: CTAB, no increased work of breathing. Good air movement GASTROINTESTINAL: Abdomen soft, nondistended. Bowel sounds are present EXTREMITIES: Early venous stasis changes noted bilaterally. Bilateral 2+ pitting pre-tibial edema. <Eko Soha Giraldo U - 09/26/18 10:02> - Urinary Catheter Management Female External Cath placed during this visit: no <ClayFilomena - 09/29/18 12:26> no <Eko EnzoSoha U - 09/26/18 10:02> Indwelling Urethral Catheter Cath placed during this visit: no <Filomena Williamson - 09/29/18 12:26> yes, but has since been removed by the nurse <Eko EnzoSoha U - 09/26/18 10:02> Reason for continuing: Not indwelling catheter <Eko R3Soha U - 09/26/18 08 :52> Removal date: 09/19/18 <Eko R3,Soha U - 09/26/18 08:52> Removal time: 18:00 <Eko R3,Soha U - 09/26/18 08:52> Straight Cath placed during this visit: no <Filomena Williamson M - 09/29/18 12:26> yes, but has since been removed by the nurse <Soha Potter U - 09/26/18 10:02> Reason for continuing: Not indwelling catheter <Soha Potter U - 09/26/18 08 :52> Insertion date: 09/20/18 <Eko Soha Giraldo U - 09/26/18 08:52> Insertion time: 02:45 <Eko Soha Giraldo U - 09/26/18 08:52> Removal date: 09/20/18 <Eko Soha Giraldo U - 09/26/18 08:52> Removal time: 03:00 <Eko Soha Giraldo U - 09/26/18 08:52> Assessment and Plan - Assessment (1) Acute respiratory failure Code(s): J96.00 - Acute respiratory failure, unspecified whether with hypoxia or hypercapnia Status: Acute (2) MRSA pneumonia Code(s): J15.212 - Pneumonia due to Methicillin resistant Staphylococcus aureus Status: Acute (3) Heart failure with preserved ejection fraction Code(s): I50.30 - Unspecified diastolic (congestive) heart failure Status: Acute (4) RAD (obstructive sleep apnea) Code(s): G47.33 - Obstructive sleep apnea (adult) (pediatric) Status: Acute (5) Hypertension Code(s): I10 - Essential (primary) hypertension Status: Acute (6) COPD (chronic obstructive pulmonary disease) Code(s): J44.9 - Chronic obstructive pulmonary disease, unspecified Status: Acute (7) GERD (gastroesophageal reflux disease) Code(s): K21.9 - Gastro-esophageal reflux disease without esophagitis Status: Acute (8) Afib Code(s): I48.91 - Unspecified atrial fibrillation Status: Acute (9) Anxiety Code(s): F41.9 - Anxiety disorder, unspecified Status: Acute (10) Tremors of nervous system Code(s): R25.1 - Tremor, unspecified Status: Acute (11) Chronic back pain Code(s): M54.9 - Dorsalgia, unspecified; G89.29 - Other chronic pain Status: Acute (12) Anemia Code(s): D64.9 - Anemia, unspecified Status: Acute (13) Abnormal cytology Code(s): R89.6 - Abnormal cytological findings in specimens from other organs, systems and tissues Status: Acute <Filomena Williamson - 09/29/18 12:26> (1) Acute respiratory failure Code(s): J96.00 - Acute respiratory failure, unspecified whether with hypoxia or hypercapnia Status: Acute (2) MRSA pneumonia Code(s): J15.212 - Pneumonia due to Methicillin resistant Staphylococcus aureus Status: Acute (3) RAD (obstructive sleep apnea) Code(s): G47.33 - Obstructive sleep apnea (adult) (pediatric) Status: Acute (4) Hypertension Code(s): I10 - Essential (primary) hypertension Status: Acute (5) COPD (chronic obstructive pulmonary disease) Code(s): J44.9 - Chronic obstructive pulmonary disease, unspecified Status: Acute (6) GERD (gastroesophageal reflux disease) Code(s): K21.9 - Gastro-esophageal reflux disease without esophagitis Status: Acute (7) Afib Code(s): I48.91 - Unspecified atrial fibrillation Status: Acute (8) Anxiety Code(s): F41.9 - Anxiety disorder, unspecified Status: Acute (9) Tremors of nervous system Code(s): R25.1 - Tremor, unspecified Status: Acute (10) Chronic back pain Code(s): M54.9 - Dorsalgia, unspecified; G89.29 - Other chronic pain Status: Acute (11) Anemia Code(s): D64.9 - Anemia, unspecified Status: Acute (12) KIKE (acute kidney injury) Code(s): N17.9 - Acute kidney failure, unspecified Status: Acute (13) Abnormal cytology Code(s): R89.6 - Abnormal cytological findings in specimens from other organs, systems and tissues Status: Acute (14) Heart failure with preserved ejection fraction Code(s): I50.30 - Unspecified diastolic (congestive) heart failure Status: Acute <Soha Potter - 09/26/18 09:53> - Assessment and Plan 63-year-old female presented with shortness of breath presumed to be due to CHFpEF but likely related to her chronic obstructive sleep apnea. The patient was noted to be obtunded 09/15 with acute respiratory failure and marked CO2 retention requiring emergent intubation with mechanical ventilation. On 09/18, bronchoscopy was performed with removal of copious amounts of mucus mixed with bright red blood from both bronchi. She was also started on vancomycin and aztreonam due to fevers. Bronchial washings and sputum grew MRSA - ID consulted on 09/20/2018 - switched to Linezolid and aztreonam and now improved. Tracheostomy tube was placed on 09/22/18. Right middle lobe bronchial washings from 09/20/2018 is suspicious for squamous cell carcinoma. Oncology consulted and stated that pt is not a candidate for any further intervention at this time due to her respiratory status. Currently undergoing CPAP and T-piece trials. Acute hypercarbic respiratory failure -Tracheostomy tube in place -Continuing CPAP and T-piece trials -No pressors -Critical care managing Obstructive sleep apnea with obesity hypoventilation syndrome -Last PFT showed mild restrictive lung disease -Trach as above -Pulmonology on board. Patient known to Dr. House MRSA Pneumonia -Bronchial washings and sputum grew MRSA -No fever in the past 24 hours -Blood cultures no growth x 5 days -ID on board -Patient on Linezolid (started on 09/20) and aztreonam started on 09/18 Abnormal Cytology -Cell block from the right middle lobe washing on 09/18/18 showed: * Severely dysplastic squamous epithelium suspicious for squamous cell carcinoma * May explain bloody sputum and previous hemoptysis but will need further testing to confirm when she is much improved -Consult placed to oncology on 09/23 * Seen by Dr. Holcomb * Not sure of diagnosis, no solid mass seen on CT * At this time, she is not a candidate for any further investigation before treatment options are even considered * If her current status improves, she could possible undergo further testing in [address] scan and bronchoscopy -Palliative care on board Acute Kidney Injury - Resolved - Continue Furosemide - Strict Is and Os - Avoid nephrotoxic medications Heart Failure with Preserved Ejection Fraction -Echocardiogram: 09/06/12 - ejection fraction of 50-55% with normal wall motion -Monitor strict I/O's -Continue Furosemide AFIB -Stable -Continue home sotalol if BP can tolerate Hypertension -Monitor vital signs -Hold home BP medications due to low systolic BP around 110s COPD -The patient carries a diagnosis of COPD per chart review -Possible heavy secondhand smoke exposure or symptoms all stemming from RAD -Spiriva nebulizer 0.5 mg q4h scheduled - she reports allergy to albuterol Anemia -Chronic anemia -Currently stable, continue to monitor CBC daily Anxiety -Continue home lorazepam 1 mg p.o. twice daily prn GERD -On Famotidine for ppx Chronic back pain/arthritis -PT evaluate and treat while in the hospital once patient is completely off the ventilator FEN/ppx F: Free water flushes E: On ICU electrolyte protocol N: RD recommends Jevity 1.5 @ 55mL/hr to provide 1980kcal, 84g of protein, and 1003mL of free water to best meet pt's updated needs -DVT ppx: Lovenox held due to hemoptysis, SCDs in place -GI ppx: Famotidine, Senna/Docusate <Soha Potter U - 09/26/18 10:02> Discussed Condition With: Marketing Services Vice President Dr. Williamson <Soha Potter - 09/26/18 10:02> Discharge Planning: Patient needs to tolerate a T-piece without requiring ventilation assistance. She would most likely be discharged to an acute rehab facility <Soha Potter - 09/26/18 10:02> - Attending Attestation The exam, history, and the medical decision-making described in the above note were completed with the assistance of the resident physician. I reviewed and agree with the findings presented. I attest that I had a [id number] encounter with the patient on the same day, and personally performed and documented my assessment and findings in the medical record. she is in need of [facility] rehab for strengthening. her sleep apnea and breathing problems qualify her for [facility] <Filomena Williamson - 09/29/18 12:26>
[2018-09-26] MEDS: hydrALAZINE 10 MG Tablet PO SCH ×2 (09:38→21:13)
[2018-09-26] MEDS: Chlorhexidine 0.12% Oral Kit 15 ML UDC OROPHARYNG SCH ×2 (09:38→21:12)
[2018-09-26] MEDS: Senna/Docusate Sodium 8.6/50 MG Tablet PO SCH ×2 (09:39→21:13)
[2018-09-26] MEDS: QUEtiapine 100 MG Tablet PO SCH ×2 (09:39→21:14)
[2018-09-26] MEDS: Famotidine PF Inj 20 MG/2 ML Vial IV.PUSH SCH ×2 (09:40→21:13)
[2018-09-26] MEDS: Simethicone 125 MG Chew Tablet PO SCH (09:45)
[2018-09-26] MEDS: Potassium Phosphate 500 MG Soluble Tablet PO PRN ×2 (11:10→16:49)
--- NOTE | 2018-09-26 11:30 | P.PNCC ---
Subjective Subjective Remarks/Hospital Course: This is a 63-year-old female. Date of admission 09/14/2018. Date of consultation 09/15/2018. Past medical history includes paroxysmal atrial fibrillation currently normal sinus rhythm, elevated BMI, congestive heart failure with last documented ejection fraction 55% 2012, COPD, hypertension, left bundle branch block essential tremors. Patient originally planned to [facility] on 09/14/2018 with worsening shortness of breath slowly on coming over the past couple weeks. She also noticed increasing bilateral lower extremity edema. Per documentation, patient recently saw her local superintendent Dr. Silverman on Wednesday who asked her to drink as much fluid and juice as she possibly could and reduce her dose of Lasix from 20 mg twice a day to once a day. During current hospitalization, patient resume home medications of enalapril, furosemide, metoprolol and hydralazine. Patient seen by cardiology and pulmonology. Refusing to be from central sleep apnea. Currently on ipratropium aerosols every [address] House. Seen by Dr. Chew. Switch to sotalol 80 mg twice daily and diuresis furosemide 40 mg IV twice daily. This morning, patient was found obtunded. PH was 7.17. Retaining CO2. Transfer to ICU and intubated using 20 mg etomidate. 09/16: No acute distress on mechanical ventilation. Arousable but not following commands. Tolerating tube feeding. Decreased urine output. Will Place Coello catheter to monitor accurate I's and O's 09/17: Failed extubation yesterday after 20 minutes. Extremely anxious. Currently on low-dose dexmedetomidine drip and bradycardic. Tube feeds restarted. Urine output has increased. 09/18: Some hemoptysis overnight. Enoxaparin held. Currently on CPAP trials at 40%. Started on vancomycin and aztreonam for fevers. Arousable and follows commands 09/19: Patient failed trial of extubation again yesterday, required bronchoscopy due to bloody secretions from ETT but no active bleeding was seen. 09/20: General surgery consulted for tracheostomy, patient was agreeable when I spoke with her yesterday but her daughter was hesitant. Awaiting their decision. The patient's sputum cultures are positive for MRSA, will consult ID. The patient wrote on a piece of paper to me that she is having hallucinations from precedex. She is requesting that I discontinue this medication. 09/21: No overnight events. Patient became tachypneic and appeared anxious and distressed when I briefly attempted to switch her to spontaneous breathing trial , placed back on AC. Tentatively planned for tracheostomy tomorrow. 09/22: Awake and alert. Remains orally intubated on mechanical ventilation. Awaiting tracheostomy. 09/23: Awake and alert despite being on propofol. Gets anxious. Status post tracheostomy yesterday. Started CPAP trials. Tolerating tube feeds via NG tube 09/24: Tolerating SBT well today. PEEP of 8, 50% FiO2. We will attempt T-piece trials 09/25: No significant events overnight, continue T-piece trials daily 09/26: Currently on vent support/CPAP pressure support of 14. Awake alert following commands Objective Vital Signs / I&O: Vital Signs 09/25/18 12:00 09/25/18 12:01 09/25/18 13:00 Temperature 98.3 F Pulse Rate 66 69 68 Respiratory Rate 2 L 22 12 Blood Pressure 96/51 L 96/51 L Pulse Oximetry 94 L 09/25/18 13:01 09/25/18 13:32 09/25/18 14:00 Temperature Pulse Rate 66 62 Respiratory Rate 12 21 1 L Blood Pressure 97/51 L Pulse Oximetry 86 L 95 92 L 09/25/18 14:01 09/25/18 15:00 09/25/18 15:22 Temperature Pulse Rate 62 63 61 Respiratory Rate 0 L 0 L 18 Blood Pressure 89/53 L 98/55 L Pulse Oximetry 93 L 92 L 09/25/18 16:00 09/25/18 16:01 09/25/18 16:44 Temperature 98.9 F Pulse Rate 61 61 Respiratory Rate 8 L 4 L 20 Blood Pressure 114/57 L 105/53 L Pulse Oximetry 93 L 92 L 92 L 09/25/18 17:00 09/25/18 17:01 09/25/18 18:00 Temperature Pulse Rate 60 59 L 68 Respiratory Rate 9 L 17 10 L Blood Pressure 112/59 L Pulse Oximetry 94 L 09/25/18 18:01 09/25/18 19:00 09/25/18 19:54 Temperature Pulse Rate 64 63 68 Respiratory Rate 7 L 12 19 Blood Pressure 114/57 L 132/62 Pulse Oximetry 94 L 80 L 09/25/18 20:00 09/25/18 20:37 09/25/18 21:00 Temperature 98 F Pulse Rate 65 67 68 Respiratory Rate 14 14 18 Blood Pressure 144/66 H 141/68 H Pulse Oximetry 92 L 94 L 95 09/25/18 21:30 09/25/18 22:00 09/25/18 23:00 Temperature Pulse Rate 78 66 Respiratory Rate 22 16 16 Blood Pressure 149/76 H 139/64 Pulse Oximetry 93 L 96 94 L 09/25/18 23:21 09/26/18 00:00 09/26/18 01:00 Temperature 98.1 F Pulse Rate 67 64 71 Respiratory Rate 21 18 18 Blood Pressure 135/65 146/75 H Pulse Oximetry 95 95 09/26/18 02:00 09/26/18 03:00 09/26/18 03:54 Temperature Pulse Rate 70 64 74 Respiratory Rate 20 20 20 Blood Pressure 149/65 H 154/66 H Pulse Oximetry 94 L 94 L 09/26/18 04:00 09/26/18 04:32 09/26/18 06:00 Temperature 98.7 F Pulse Rate 72 64 Respiratory Rate 22 20 Blood Pressure 146/66 H Pulse Oximetry 95 96 09/26/18 08:14 09/26/18 08:15 09/26/18 09:20 Temperature Pulse Rate 71 99 H Respiratory Rate 15 14 Blood Pressure Pulse Oximetry 100 Intake & Output 09/25/18 09/26/18 09/26/18 18:59 06:59 18:59 Intake Total 1000 / 1000 1000 / 1000 100 / 100 Output Total 1100 / 1100 1200 / 1200 Balance -100 / -100 -200 / -200 100 / 100 Weight 149 kg Intake: IV 500 / 500 400 / 400 Azactam Inj 1,000 MG In NS Inj 200 / 200 100 / 100 100 ML @ 200 mls/hr IV.SIG Q8H PABLO Rx#:[id number] Zyvox 600 mg Premix 300 ML @ 300 / 300 300 / 300 300 mls/hr IV.SIG Q12H PABLO Rx#: [id number] Oral 0 / 0 Water Bolus Amount 200 / 200 300 / 300 Free Water Amount 300 / 300 300 / 300 100 / 100 Output: Urine Amount (Catheter) 1100 / 1100 1200 / 1200 Female External 1100 / 1100 1200 / 1200 Other: Date of Last Bowel Movement 09/21/18 09/21/18 09/25/18 # Incontinent Bowel Movements 1 Result Diagrams: 09/26/18 07:16 09/26/18 07:16 Objective Remarks: GENERAL: awake and alert SKIN: No rashes or lesions HEAD: NCAT EYES: PERRL ENT: Mucous membranes pink and moist. NECK: Tracheostomy in place CARDIOVASCULAR: Regular rate and rhythm RESPIRATORY: Diminished breath sounds due to body habitus, secretions thick but not bloody GASTROINTESTINAL: Abdomen soft, non-tender, obese MUSCULOSKELETAL: Trace nonpitting bilateral lower extremity edema NEUROLOGICAL: RASS 0, awake and alert, nods/ shakes head appropriately to yes/ no questions Assessment and Plan - Assessment and Plan Plan: 63yF presenting with acute hypoxic respiratory failure and failed attempt at extubation x 2 Neuro/Psych: Anxiety disorder Chronic benzodiazepine use PRN ativan for breakthrough anxiety Acetaminophen allergy documented CV: Paroxysmal atrial fibrillation currently normal sinus rhythm Congestive heart failure unknown etiology. Last echocardiogram EF 50-55% Elevated HDL Followed by cardiology Sotalol 80 mg twice daily started by cardiology several days ago, hold home dose of metoprolol/ hydralazine Currently holding enalapril 20 mg daily in light of hypotension and acute kidney injury Echocardiogram: 09/06/12 - ejection fraction of 50-55% with normal wall motion Myocardial perfusion scan: 09/07/12 - slight ischemia in the LAD distribution with an ejection fraction of 60 Diurese as detailed below Resp: Acute respiratory failure with CO2 retention Obstructive sleep apnea -untreated Previous diagnosis of COPD Obesity hypoventilation syndrome Hemoptysis Bronchoscopy(09/19) with atypical cells on cell block suspicious for squamous cell carcinoma Last PFT showed mild restrictive lung disease. No obstructive component Followed by pulmonology. Currently ipratropium aerosols every 4 hours scheduled Pharmacologic prophylaxis held due to hemoptysis, no source of bleeding noted on bronch 09/18 Tracheostomy done on 09/22 -Dr. House following for pulmonary-to decide further management for suspicious squamous cell carcinoma on bronchoscopy cell block specimen Continue to attempt to wean to trach collar's daily GI: Gastroesophageal reflux disease Tube feeds- vital high-protein at 65 cc an hour. Will require PEG tube placement Famotidine for GI prophylaxis Docusate sodium/senna 1 tablet twice daily for bowel regimen : No indication for Coello Endo: Acute hyperglycemia Sliding scale insulin Accu-Cheks to maintain euglycemia aspart insulin every 6 hours, better controlled on medium algorithm Renal: Acute kidney injury - improving CHAPIS inhibitor discontinued due to KIKE, still on hold as BP is 100s-110s systolic Monitor urine output Accurate I's and O's Renal ultrasound only remarkable for incidental renal cyst; urine eosinophils, sodium and creatinine unremarkable Avoid nephrotoxic medications Heme: Leukocytosis Normocytic anemia Suspicious squamous cell carcinoma on cell block of bronchoscopy specimen No indication for transfusion of blood products at this time. Monitor CBC daily. Hemoptysis appears to have stopped at this point. Oncology consult for further evaluation of abnormal biopsy from bronchoscopy suspicious for squamous cell carcinoma. ID: 09/15 sputum negative for influenza A and B No growth to date blood cultures x2 09/17 09/18 sputum culture positive for MRSA Empirically started on vancomycin and aztreonam for MRSA pneumonia, 09/18 * ID consulted(Dr. Archuleta), vanco discontinued and patient was started on Zyvox. D/C aztreonam? Infectious disease consultation appreciated FEN: Hypernatremia Replace electrolytes as clinically indicated per ICU electrolyte protocol Continue free water flushes MSK: Elevated BMI Chronic low back pain Weight loss encouraged PT evaluate and treat when extubated Access -Utilize peripheral IV DVT GI prophylaxis -GI -famotidine -DVT -SCD/enoxaparin currently on hold due to hemoptysis and planned procedures. Will restart subcu Lovenox when okay with pulmonary and surgery. Discussed with guardian family member, discussed with ID, discussed with [employer]INE TENDER. Level 2
--- NOTE | 2018-09-26 12:12 | P.PNID ---
Subjective Remarks: Ms. Valencia is a 63-year-old female with past medical history significant for A. fib with RVR, hypertension with history of hypertensive urgency, congestive heart failure, COPD as well as a history of depression and anxiety. Patient was admitted on September 14, 2018 evaluated in the emergency patient presented initially to [facility] ED with complaints of shortness of breath that was going on for a few weeks but in the 2-3 days prior to admission and had actually worsened. Patient also had started noticing increasing swelling of bilateral feet reportedly. As reported to others she was having difficulty lying on her side and difficulty laying flat. Patient also had reported tremors in her hands while holding objects. Patient reportedly had gained about 45 pounds in the last 3-4 months even though she has not been eating more than her U patient's learning facilitator is Dr. Silverman and had reduced her dose of Lasix. Patient was initially admitted under family medicine service. Per review of records it appears that she has congestive heart failure with ejection fraction of 55% in 2012. There is also reported history of essential tremors. On September 15, 2018 patient clinically deteriorated with worsening shortness of breath and was found to be obtunded and therefore critical care was consulted and patient was transferred to the ICU. Her pH was 7.17 and she was retaining CO2 and for acute hypercarbic respiratory failure patient ended up being intubated. Patient had blood cultures which are negative. Patient has sputum cultures and bronch cultures positive for MRSA. Despite being treated with IV vancomycin patient continues to have fever which is concerning either for a drug fever or possible empyema or lung abscess. Her initial influenza testing with antigen was negative. At the time of my evaluation patient remains in the ICU currently intubated. Patient has been refusing Precedex and is currently wide awake on the ventilator and CPAP trial was attempted this morning. Patient communicates by writing on a piece of paper and writes appropriate sentences some questions. Patient currently is not on any pressors has decent urine output. Patient has no rash. Overnight events reviewed. s/p trach y Appreciate Palliative care input. No fevers No rash No diarrhea Antibiotics: Azactam IV Vanco IV Lines: Lines ok Past Medical History: reviewed Allergies/Adverse Reactions: Allergies acetaminophen Allergy (Severe, Verified 09/14/18 02:45) Tachycardia, swelling Swelling lips, throat hydrocodone Allergy (Severe, Verified 09/14/18 02:45) Tachycardia, swelling Swelling lips, throat ibuprofen Allergy (Severe, Verified 09/14/18 02:45) Swelling Swelling lips, throat morphine Allergy (Severe, Verified 09/14/18 02:45) Swelling Swelling lips , throat propoxyphene Allergy (Severe, Verified 09/14/18 02:45) Swelling Swelling, lips , throat albuterol Allergy (Intermediate, Verified 09/14/18 02:45) Tachycardia amoxicillin Allergy (Unknown, Verified 09/14/18 02:45) Atrial Fibrillation codeine Allergy (Unknown, Verified 09/14/18 02:45) UNKNOWN sertraline Allergy (Unknown, Verified 09/14/18 02:45) UNKNOWN pantoprazole Adverse Reaction (Unknown, Verified 09/14/18 02:45) Nausea/Vomiting INHALERS FOR COPD (ALL) Allergy (Severe, Uncoded 09/14/18 02:45) PALPITATIONS/DIAPHORESIS VICOPROFEN Allergy (Severe, Uncoded 09/14/18 02:45) Swelling "ANY PAIN PILLS" Adverse Reaction (Severe, Uncoded 09/14/18 02:45) AFIB Objective Vital Signs 09/25/18 13:00 09/25/18 13:01 09/25/18 13:32 Temperature Pulse Rate 68 66 Respiratory Rate 12 12 21 Blood Pressure 97/51 L Pulse Oximetry 86 L 95 09/25/18 14:00 09/25/18 14:01 09/25/18 15:00 Temperature Pulse Rate 62 62 63 Respiratory Rate 1 L 0 L 0 L Blood Pressure 89/53 L 98/55 L Pulse Oximetry 92 L 93 L 92 L 09/25/18 15:22 09/25/18 16:00 09/25/18 16:01 Temperature 98.9 F Pulse Rate 61 61 61 Respiratory Rate 18 8 L 4 L Blood Pressure 114/57 L 105/53 L Pulse Oximetry 93 L 92 L 09/25/18 16:44 09/25/18 17:00 09/25/18 17:01 Temperature Pulse Rate 60 59 L Respiratory Rate 20 9 L 17 Blood Pressure 112/59 L Pulse Oximetry 92 L 09/25/18 18:00 09/25/18 18:01 09/25/18 19:00 Temperature Pulse Rate 68 64 63 Respiratory Rate 10 L 7 L 12 Blood Pressure 114/57 L 132/62 Pulse Oximetry 94 L 94 L 80 L 09/25/18 19:54 09/25/18 20:00 09/25/18 20:37 Temperature 98 F Pulse Rate 68 65 67 Respiratory Rate 19 14 14 Blood Pressure 144/66 H Pulse Oximetry 92 L 94 L 09/25/18 21:00 09/25/18 21:30 09/25/18 22:00 Temperature Pulse Rate 68 78 Respiratory Rate 18 22 16 Blood Pressure 141/68 H 149/76 H Pulse Oximetry 95 93 L 96 09/25/18 23:00 09/25/18 23:21 09/26/18 00:00 Temperature 98.1 F Pulse Rate 66 67 64 Respiratory Rate 16 21 18 Blood Pressure 139/64 135/65 Pulse Oximetry 94 L 95 09/26/18 01:00 09/26/18 02:00 09/26/18 03:00 Temperature Pulse Rate 71 70 64 Respiratory Rate 18 20 20 Blood Pressure 146/75 H 149/65 H 154/66 H Pulse Oximetry 95 94 L 94 L 09/26/18 03:54 09/26/18 04:00 09/26/18 04:32 Temperature 98.7 F Pulse Rate 74 72 Respiratory Rate 20 22 20 Blood Pressure 146/66 H Pulse Oximetry 95 96 09/26/18 05:00 09/26/18 05:01 09/26/18 06:00 Temperature Pulse Rate 67 68 66 Respiratory Rate 24 18 23 Blood Pressure 129/68 Pulse Oximetry 94 L 94 L 94 L 09/26/18 06:01 09/26/18 07:00 09/26/18 07:01 Temperature Pulse Rate 65 68 67 Respiratory Rate 19 18 19 Blood Pressure 143/77 H 140/77 Pulse Oximetry 94 L 95 95 09/26/18 08:00 09/26/18 08:01 09/26/18 08:14 Temperature Pulse Rate 71 69 71 Respiratory Rate 19 18 15 Blood Pressure 128/61 Pulse Oximetry 93 L 09/26/18 08:15 09/26/18 09:00 09/26/18 09:01 Temperature Pulse Rate 78 76 Respiratory Rate 14 19 18 Blood Pressure 123/60 Pulse Oximetry 100 80 L 79 L 09/26/18 09:20 09/26/18 10:00 09/26/18 10:01 Temperature Pulse Rate 99 H 80 79 Respiratory Rate 22 23 Blood Pressure 135/61 Pulse Oximetry 90 L 90 L 09/26/18 10:15 09/26/18 11:00 09/26/18 11:01 Temperature Pulse Rate 70 68 68 Respiratory Rate 18 18 Blood Pressure 89/49 L Pulse Oximetry 09/26/18 11:19 09/26/18 11:43 09/26/18 12:00 Temperature Pulse Rate 70 69 71 Respiratory Rate 18 19 Blood Pressure 103/55 L Pulse Oximetry 09/26/18 12:01 09/26/18 12:11 Temperature Pulse Rate 72 71 Respiratory Rate 21 16 Blood Pressure 106/53 L Pulse Oximetry Intake & Output 09/25/18 09/26/18 09/26/18 18:59 06:59 18:59 Intake Total 1000 / 1000 1000 / 1000 100 / 100 Output Total 1100 / 1100 1200 / 1200 Balance -100 / -100 -200 / -200 100 / 100 Weight 149 kg Intake: IV 500 / 500 400 / 400 Azactam Inj 1,000 MG In NS Inj 200 / 200 100 / 100 100 ML @ 200 mls/hr IV.SIG Q8H PABLO Rx#:[id number] Zyvox 600 mg Premix 300 ML @ 300 / 300 300 / 300 300 mls/hr IV.SIG Q12H PABLO Rx#: [id number] Oral 0 / 0 Water Bolus Amount 200 / 200 300 / 300 Free Water Amount 300 / 300 300 / 300 100 / 100 Output: Urine Amount (Catheter) 1100 / 1100 1200 / 1200 Female External 1100 / 1100 1200 / 1200 Other: Date of Last Bowel Movement 09/21/18 09/21/18 09/25/18 # Incontinent Bowel Movements 1 09/18/18 13:00 Bronchial Washings - Right Middle Lobe Fungal Smear - Final No fungal elements seen 09/18/18 13:00 Bronchial Washings - Right Middle Lobe Fungal Culture - Preliminary No growth in 1 week 09/18/18 13:00 Bronchial Washings - Right Middle Lobe Acid Fast Bacilli Smear - Final No acid fast bacilli seen 09/18/18 13:00 Bronchial Washings - Right Middle Lobe Mycobacterial Culture - Preliminary No growth in 1 week Lab - Hematology Results 09/24/18 09/25/18 09/26/18 11:45 05:55 07:16 WBC 6.5 6.5 7.0 RBC 2.96 L 2.95 L 3.03 L Hgb 8.1 L 8.3 L 8.3 L Hct 25.8 L 25.4 L 25.7 L MCV 86.9 86.1 85.1 MCH 27.2 28.0 27.4 MCHC 31.2 L 32.6 32.2 RDW 16.2 16.1 16.0 Plt Count 294 302 345 MPV 7.6 7.5 7.0 Prelim Diff (Auto) Slide review pending Neut % (Auto) 64.6 64.6 71.7 H Lymph % (Auto) 17.3 18.4 14.6 Thomas % (Auto) 11.8 H 10.7 H 8.2 H Eos % (Auto) 5.6 H 5.7 H 4.8 H Baso % (Auto) 0.7 0.6 0.7 Neut # (Auto) 4.2 4.2 5.0 Lymph # (Auto) 1.1 1.2 1.0 Thomas # (Auto) 0.8 0.7 0.6 Eos # (Auto) 0.4 0.4 0.3 Baso # (Auto) 0.0 0.0 0.1 WBC Differential . Manual diff final . Seg Neuts % (Manual) 68 Band Neuts % (Manual) 1 Lymphocytes % (Manual) 16 Monocytes % (Manual) 7 Eosinophils % (Manual) 2 Basophils % (Manual) 1 Metamyelocytes % (Man) 3 H Myelocytes % (Man) 2 H Abs Neuts (Manual) 4.8 Differential Comment Auto diff final . Auto diff final Toxic Granulation 1+ H Platelet Estimate Normal Platelet Morphology Normal Ovalocytes 1+ H Lab - Chemistry Results 09/24/18 09/24/18 09/24/18 11:45 13:54 23:19 Sodium 144 Potassium 3.2 L Chloride 110 H Carbon Dioxide 27.1 Anion Gap 7 BUN 8 Creatinine 0.69 Estimated GFR 86 L POC Glucose 83 91 Random Glucose 86 Calcium 7.6 L Phosphorus Magnesium Total Bilirubin 0.3 AST 35 ALT 20 Alkaline Phosphatase 65 Total Protein 5.6 L D Albumin 2.0 L 09/25/18 09/25/18 09/25/18 05:18 05:55 12:51 Sodium 146 H Potassium 3.9 Chloride 111 H Carbon Dioxide 24.7 Anion Gap 10 BUN 7 Creatinine 0.67 Estimated GFR 89 POC Glucose 82 70 Random Glucose 75 Calcium 7.8 L Phosphorus 2.4 L Magnesium 2.5 Total Bilirubin 0.3 AST 43 H ALT 27 Alkaline Phosphatase 67 Total Protein 5.8 L Albumin 2.0 L 09/25/18 09/25/18 09/26/18 17:23 23:34 05:47 Sodium Potassium Chloride Carbon Dioxide Anion Gap BUN Creatinine Estimated GFR POC Glucose 79 75 79 Random Glucose Calcium Phosphorus Magnesium Total Bilirubin AST ALT Alkaline Phosphatase Total Protein Albumin 09/26/18 07:16 Sodium 144 Potassium 3.7 Chloride 109 H Carbon Dioxide 24.7 Anion Gap 10 BUN 7 Creatinine 0.61 Estimated GFR Greater than 89 POC Glucose Random Glucose 69 L Calcium 8.0 L Phosphorus 2.0 L Magnesium 2.3 Total Bilirubin 0.4 AST 40 H ALT 34 Alkaline Phosphatase 67 Total Protein 5.8 L Albumin 2.1 L Imaging: ITS Impressions Abdomen/Bladder Ultrasound 09/16/18 08:29 CONCLUSION: 1. Negative renal sonogram other than right renal cyst. Abdomen/Pelvis CT 09/20/18 00:00 CONCLUSION: 1. No acute abnormality demonstrated within the abdomen or pelvis. 2. There is an area of nonspecific subcutaneous edema and induration of the left lateral flank. This could be cellulitis but is not typical of an organized abscess at this time. Chest CT 09/20/18 00:00 CONCLUSION: 1. There is elevation of left hemidiaphragm with compressive atelectasis and consolidation of the left lower lobe. 2. Patchy right upper lobe groundglass infiltrate in right lower lobe posterior basilar consolidation. Abdomen X-Ray 09/23/18 00:00 CONCLUSION: Tip of the NG tube in the fundus of the stomach. Physical Exam: GENERAL: Morbidly obese, awake on the vent, large neck. SKIN: Cool and dry, no generalized rash HEAD: Atraumatic. Normocephalic. No temporal or scalp tenderness. EYES: Pupils equal round and reactive. Scleral icterus. No injection or drainage. No petechia ENNT: Trach site ok. Supple, nontender, no meningeal signs. CARDIOVASCULAR: HS audible. RESPIRATORY: Air entry equal bilaterally. Clear to auscultation bilaterally. GASTROINTESTINAL: Abdomen soft,NT MUSCULOSKELETAL: Extremities without clubbing, cyanosis. NEUROLOGICAL: Sedated Psych could not be assessed Skin folds with no evidence of infection. IV line sites ok. Assessment and Plan - Plan MRSA pneumonia rule out empyema or lung abscess Acute respiratory failure on vent,hypercarbic respiratory failure Morbid obesity History of sleep apnea was on CPAP has not been compliant History of congestive heart failure with EF of 55% History of A. fib Recommendations Discontinue Azactam IV Continue Zyvox IV may be changed to oral. Would recommend additional 5 more days of antibiotics as procalcitonin very minimally elevated and CXR improved. Follow clinical course Case discussed with YULIANA griffin patient she understands and communicates by writing. elias Ramirez and . Will sign off please call back if any change in clinical condition or questions.
--- NOTE | 2018-09-26 12:31 | XR ---
EXAM DATE: 09/26/2018 12:05 PM EST AGE/SEX: 63 years / Female INDICATIONS: Pneumonia. CLINICAL DATA: This is the patient's initial encounter. Patient reports that signs and symptoms have been present for 4 - 6 days and indicates a pain score of 0/10. MEDICAL/SURGICAL HISTORY: Congestive heart failure. Chronic obstructive pulmonary disease. Hy pertension. None. COMPARISON: C, CHEST 1V SINGLE AP, 09/19/2018. . FINDINGS: Trach tube is in good position. Nasogastric tube across the GE junction. Mild interstitial edema is p resent. There is marked elevation of the left hemidiaphragm with compressive atelectasis in the left base. There is no alveolar consolidation. CONCLUSION: Some improvement with minimal decrease in amount of interstitial edema Marked elevation of the left hemidiaphragm Electronically signed by: Arie Graham MD Board Certified Radiologist 09/26/2018 12:29 PM EST
--- NOTE | 2018-09-26 12:57 | P.PNPAL ---
Reason for Visit Reason for visit: a. To assist with evaluation and management of symptoms including: dyspnea, debility b. To assist medical decision maker(s) with: better understanding of current medical conditions; weighing benefits/burdens of medical treatment options; making medical treatment decisions. Subjective Subjective/Interval History: Follow up visit for symptom management of dyspnea and debility. Dual visit with Vandana Calderón LCSW. Patient seen and assessed in room 525; nurse (Dolly) was no family present. Patient remains mechanically ventilated status post tracheotomy placement last week. Tolerating spontaneous breathing trials. Pulmonology (Dr. House) following. Clinical data: * WBC: 7.0, hemoglobin 8.3, hematocrit 25.7, platelets 345, neutrophils 71.7% * Sodium: 144, potassium 3.7, chloride 109, carbon dioxide 24.7, random glucose 69, calcium 8.0, phosphorus 2.0, magnesium 2.3 * BUN: 7, creatinine 0.61, GFR >89 * Total bilirubin: 0.4, AST 40, ALT 34, alkaline phosphatase 67 * Total protein: 5.8, albumin 2.1 Follow-up chest x-ray on 09/18/2018 showed slight interval worsening in aeration ; started on empirically on Vancomycin and Azactam. Sputum cultures positive for MRSA. No new fevers. Leukocytosis resolved. Currently on Azactam and Zyvox. ID (Dr. Josefina Archuleta) following. Oncology consulted secondary to atypical cells suspicious for squamous cell carcinoma. Per Dr. Holcomb (oncology), cytology is nondiagnostic; he is hopeful this is a result of bronchitis pneumonia/ inflammation and will improve as the patient's pulmonary issues resolve. If the patient were found to have SCC, she would not be a candidate for aggressive interventions at this time given her current medical condition and functional status. If her condition/functional status improve, may consider repeating a CT of the chest and a bronchoscopy in the future. Discussed patient with Dr. Mortensen and Dr. Archuleta; recommendations to consult [facility] for [facility]. Family/Friend Interactions: See interval history Objective Vital Signs: Vital Signs 09/25/18 13:00 09/25/18 13:01 09/25/18 13:32 Temperature Pulse Rate 68 66 Respiratory Rate 12 12 21 Blood Pressure 97/51 L Pulse Oximetry 86 L 95 09/25/18 14:00 09/25/18 14:01 09/25/18 15:00 Temperature Pulse Rate 62 62 63 Respiratory Rate 1 L 0 L 0 L Blood Pressure 89/53 L 98/55 L Pulse Oximetry 92 L 93 L 92 L 09/25/18 15:22 09/25/18 16:00 09/25/18 16:01 Temperature 98.9 F Pulse Rate 61 61 61 Respiratory Rate 18 8 L 4 L Blood Pressure 114/57 L 105/53 L Pulse Oximetry 93 L 92 L 09/25/18 16:44 09/25/18 17:00 09/25/18 17:01 Temperature Pulse Rate 60 59 L Respiratory Rate 20 9 L 17 Blood Pressure 112/59 L Pulse Oximetry 92 L 09/25/18 18:00 09/25/18 18:01 09/25/18 19:00 Temperature Pulse Rate 68 64 63 Respiratory Rate 10 L 7 L 12 Blood Pressure 114/57 L 132/62 Pulse Oximetry 94 L 94 L 80 L 09/25/18 19:54 09/25/18 20:00 09/25/18 20:37 Temperature 98 F Pulse Rate 68 65 67 Respiratory Rate 19 14 14 Blood Pressure 144/66 H Pulse Oximetry 92 L 94 L 09/25/18 21:00 09/25/18 21:30 09/25/18 22:00 Temperature Pulse Rate 68 78 Respiratory Rate 18 22 16 Blood Pressure 141/68 H 149/76 H Pulse Oximetry 95 93 L 96 09/25/18 23:00 09/25/18 23:21 09/26/18 00:00 Temperature 98.1 F Pulse Rate 66 67 64 Respiratory Rate 16 21 18 Blood Pressure 139/64 135/65 Pulse Oximetry 94 L 95 09/26/18 01:00 09/26/18 02:00 09/26/18 03:00 Temperature Pulse Rate 71 70 64 Respiratory Rate 18 20 20 Blood Pressure 146/75 H 149/65 H 154/66 H Pulse Oximetry 95 94 L 94 L 09/26/18 03:54 09/26/18 04:00 09/26/18 04:32 Temperature 98.7 F Pulse Rate 74 72 Respiratory Rate 20 22 20 Blood Pressure 146/66 H Pulse Oximetry 95 96 09/26/18 05:00 09/26/18 05:01 09/26/18 06:00 Temperature Pulse Rate 67 68 66 Respiratory Rate 24 18 23 Blood Pressure 129/68 Pulse Oximetry 94 L 94 L 94 L 09/26/18 06:01 09/26/18 07:00 09/26/18 07:01 Temperature Pulse Rate 65 68 67 Respiratory Rate 19 18 19 Blood Pressure 143/77 H 140/77 Pulse Oximetry 94 L 95 95 09/26/18 08:00 09/26/18 08:01 09/26/18 08:14 Temperature Pulse Rate 71 69 71 Respiratory Rate 19 18 15 Blood Pressure 128/61 Pulse Oximetry 93 L 09/26/18 08:15 09/26/18 09:00 09/26/18 09:01 Temperature Pulse Rate 78 76 Respiratory Rate 14 19 18 Blood Pressure 123/60 Pulse Oximetry 100 80 L 79 L 09/26/18 09:20 09/26/18 10:00 09/26/18 10:01 Temperature Pulse Rate 99 H 80 79 Respiratory Rate 22 23 Blood Pressure 135/61 Pulse Oximetry 90 L 90 L 09/26/18 10:15 09/26/18 11:00 09/26/18 11:01 Temperature Pulse Rate 70 68 68 Respiratory Rate 18 18 Blood Pressure 89/49 L Pulse Oximetry 09/26/18 11:19 09/26/18 11:43 09/26/18 12:00 Temperature Pulse Rate 70 69 71 Respiratory Rate 18 19 Blood Pressure 103/55 L Pulse Oximetry 09/26/18 12:01 09/26/18 12:11 Temperature Pulse Rate 72 71 Respiratory Rate 21 18 Blood Pressure 106/53 L Pulse Oximetry 100 Intake & Output 09/25/18 09/26/18 09/26/18 18:59 06:59 18:59 Intake Total 1000 / 1000 1000 / 1000 100 / 100 Output Total 1100 / 1100 1200 / 1200 Balance -100 / -100 -200 / -200 100 / 100 Weight 149 kg Intake: IV 500 / 500 400 / 400 Azactam Inj 1,000 MG In NS Inj 200 / 200 100 / 100 100 ML @ 200 mls/hr IV.SIG Q8H PABLO Rx#:[id number] Zyvox 600 mg Premix 300 ML @ 300 / 300 300 / 300 300 mls/hr IV.SIG Q12H PABLO Rx#: [id number] Oral 0 / 0 Water Bolus Amount 200 / 200 300 / 300 Free Water Amount 300 / 300 300 / 300 100 / 100 Output: Urine Amount (Catheter) 1100 / 1100 1200 / 1200 Female External 1100 / 1100 1200 / 1200 Other: Date of Last Bowel Movement 09/21/18 09/21/18 09/25/18 # Incontinent Bowel Movements 1 Physical Exam: CONSTITUTIONAL/GENERAL: This is a morbidly obese female status post tracheostomy placement in no acute distress. TUBES/LINES/DRAINS: Tracheostomy, NGT, PIV, SCDs SKIN: No jaundice, rashes, or lesions. Ecchymoses on upper extremities. No wounds visualized anteriorly. Skin temperature appropriate. Not diaphoretic. HEAD: Atraumatic. Normocephalic. EYES: Pupils equal and round and reactive. Extraocular motions intact. No scleral icterus. No injection or drainage. Fundi not examined. ENT: Nose without bleeding or purulent drainage. Mucous membranes moist and pink. NECK: Trachea midline. CARDIOVASCULAR: Regular rate and rhythm without murmurs, gallops, or rubs. No JVD. Peripheral pulses symmetric. RESPIRATORY/CHEST: Status post tracheostomy, started CPAP trials. Diminished breath sounds throughout likely related to body habitus. GASTROINTESTINAL: Abdomen soft, non-tender. Obese. Tolerating tube feedings MUSCULOSKELETAL: Extremities without clubbing, cyanosis or mottling. Trace bilateral lower extremity edema LYMPHATICS: No palpable cervical or supraclavicular adenopathy. NEUROLOGICAL: Arouse to verbal stimuli. Lethargic. Attempting to mouth words. PSYCHIATRIC: No overt anxiety/depression Diagnostic Tests Laboratory: Laboratory Results - last 72 hr 09/23/18 09/24/18 09/24/18 17:05 05:37 11:45 WBC 6.5 RBC 2.96 L Hgb 8.1 L Hct 25.8 L MCV 86.9 MCH 27.2 MCHC 31.2 L RDW 16.2 Plt Count 294 MPV 7.6 Prelim Diff (Auto) Neut % (Auto) 64.6 Lymph % (Auto) 17.3 [place] % (Auto) 11.8 H Eos % (Auto) 5.6 H Baso % (Auto) 0.7 Neut # (Auto) 4.2 Lymph # (Auto) 1.1 [place] # (Auto) 0.8 Eos # (Auto) 0.4 Baso # (Auto) 0.0 WBC Differential . Seg Neuts % (Manual) Band Neuts % (Manual) Lymphocytes % (Manual) Monocytes % (Manual) Eosinophils % (Manual) Basophils % (Manual) Metamyelocytes % (Man) Myelocytes % (Man) Abs Neuts (Manual) Differential Comment Auto diff final Toxic Granulation Platelet Estimate Platelet Morphology Ovalocytes Puncture Site Patient Temperature O2 Saturation ABG pH ABG pCO2 ABG pO2 ABG HCO3 ABG O2 Content ABG Base Excess ABG Methemoglobin Nilesh Test Hemoglobin Carboxyhemoglobin O2 Delivery Device Vent Setting Inspired O2 Critical Value Sodium Potassium Chloride Carbon Dioxide Anion Gap BUN Creatinine Estimated GFR POC Glucose 91 83 Random Glucose Calcium Phosphorus Magnesium Total Bilirubin AST ALT Alkaline Phosphatase Total Protein Albumin 09/24/18 09/24/18 09/24/18 11:45 13:54 23:19 WBC RBC Hgb Hct MCV MCH MCHC RDW Plt Count MPV Prelim Diff (Auto) Neut % (Auto) Lymph % (Auto) [place] % (Auto) Eos % (Auto) Baso % (Auto) Neut # (Auto) Lymph # (Auto) [place] # (Auto) Eos # (Auto) Baso # (Auto) WBC Differential Seg Neuts % (Manual) Band Neuts % (Manual) Lymphocytes % (Manual) Monocytes % (Manual) Eosinophils % (Manual) Basophils % (Manual) Metamyelocytes % (Man) Myelocytes % (Man) Abs Neuts (Manual) Differential Comment Toxic Granulation Platelet Estimate Platelet Morphology Ovalocytes Puncture Site Patient Temperature O2 Saturation ABG pH ABG pCO2 ABG pO2 ABG HCO3 ABG O2 Content ABG Base Excess ABG Methemoglobin Nilesh Test Hemoglobin Carboxyhemoglobin O2 Delivery Device Vent Setting Inspired O2 Critical Value Sodium 144 Potassium 3.2 L Chloride 110 H Carbon Dioxide 27.1 Anion Gap 7 BUN 8 Creatinine 0.69 Estimated GFR 86 L POC Glucose 83 91 Random Glucose 86 Calcium 7.6 L Phosphorus Magnesium Total Bilirubin 0.3 AST 35 ALT 20 Alkaline Phosphatase 65 Total Protein 5.6 L D Albumin 2.0 L 09/25/18 09/25/18 09/25/18 04:57 05:18 05:55 WBC 6.5 RBC 2.95 L Hgb 8.3 L Hct 25.4 L MCV 86.1 MCH 28.0 MCHC 32.6 RDW 16.1 Plt Count 302 MPV 7.5 Prelim Diff (Auto) Slide review pending Neut % (Auto) 64.6 Lymph % (Auto) 18.4 [place] % (Auto) 10.7 H Eos % (Auto) 5.7 H Baso % (Auto) 0.6 Neut # (Auto) 4.2 Lymph # (Auto) 1.2 [place] # (Auto) 0.7 Eos # (Auto) 0.4 Baso # (Auto) 0.0 WBC Differential Manual diff final Seg Neuts % (Manual) 68 Band Neuts % (Manual) 1 Lymphocytes % (Manual) 16 Monocytes % (Manual) 7 Eosinophils % (Manual) 2 Basophils % (Manual) 1 Metamyelocytes % (Man) 3 H Myelocytes % (Man) 2 H Abs Neuts (Manual) 4.8 Differential Comment . Toxic Granulation 1+ H Platelet Estimate Normal Platelet Morphology Normal Ovalocytes 1+ H Puncture Site Right radial Patient Temperature 98.6 O2 Saturation 97 ABG pH 7.48 H ABG pCO2 32 L ABG pO2 132 H ABG HCO3 24 ABG O2 Content 13.3 ABG Base Excess 0.4 ABG Methemoglobin 1.4 Nilesh Test Present Hemoglobin 9.6 L Carboxyhemoglobin 0.9 O2 Delivery Device Ventilator Vent Setting Prvc18/600/1.0/+8 Inspired O2 50 Critical Value No Sodium Potassium Chloride Carbon Dioxide Anion Gap BUN Creatinine Estimated GFR POC Glucose 82 Random Glucose Calcium Phosphorus Magnesium Total Bilirubin AST ALT Alkaline Phosphatase Total Protein Albumin 09/25/18 09/25/18 09/25/18 05:55 12:51 17:23 WBC RBC Hgb Hct MCV MCH MCHC RDW Plt Count MPV Prelim Diff (Auto) Neut % (Auto) Lymph % (Auto) [place] % (Auto) Eos % (Auto) Baso % (Auto) Neut # (Auto) Lymph # (Auto) [place] # (Auto) Eos # (Auto) Baso # (Auto) WBC Differential Seg Neuts % (Manual) Band Neuts % (Manual) Lymphocytes % (Manual) Monocytes % (Manual) Eosinophils % (Manual) Basophils % (Manual) Metamyelocytes % (Man) Myelocytes % (Man) Abs Neuts (Manual) Differential Comment Toxic Granulation Platelet Estimate Platelet Morphology Ovalocytes Puncture Site Patient Temperature O2 Saturation ABG pH ABG pCO2 ABG pO2 ABG HCO3 ABG O2 Content ABG Base Excess ABG Methemoglobin Nilesh Test Hemoglobin Carboxyhemoglobin O2 Delivery Device Vent Setting Inspired O2 Critical Value Sodium 146 H Potassium 3.9 Chloride 111 H Carbon Dioxide 24.7 Anion Gap 10 BUN 7 Creatinine 0.67 Estimated GFR 89 POC Glucose 70 79 Random Glucose 75 Calcium 7.8 L Phosphorus 2.4 L Magnesium 2.5 Total Bilirubin 0.3 AST 43 H ALT 27 Alkaline Phosphatase 67 Total Protein 5.8 L Albumin 2.0 L 09/25/18 09/26/18 09/26/18 23:34 05:47 07:16 WBC 7.0 RBC 3.03 L Hgb 8.3 L Hct 25.7 L MCV 85.1 MCH 27.4 MCHC 32.2 RDW 16.0 Plt Count 345 MPV 7.0 Prelim Diff (Auto) Neut % (Auto) 71.7 H Lymph % (Auto) 14.6 [place] % (Auto) 8.2 H Eos % (Auto) 4.8 H Baso % (Auto) 0.7 Neut # (Auto) 5.0 Lymph # (Auto) 1.0 [place] # (Auto) 0.6 Eos # (Auto) 0.3 Baso # (Auto) 0.1 WBC Differential . Seg Neuts % (Manual) Band Neuts % (Manual) Lymphocytes % (Manual) Monocytes % (Manual) Eosinophils % (Manual) Basophils % (Manual) Metamyelocytes % (Man) Myelocytes % (Man) Abs Neuts (Manual) Differential Comment Auto diff final Toxic Granulation Platelet Estimate Platelet Morphology Ovalocytes Puncture Site Patient Temperature O2 Saturation ABG pH ABG pCO2 ABG pO2 ABG HCO3 ABG O2 Content ABG Base Excess ABG Methemoglobin Nilesh Test Hemoglobin Carboxyhemoglobin O2 Delivery Device Vent Setting Inspired O2 Critical Value Sodium Potassium Chloride Carbon Dioxide Anion Gap BUN Creatinine Estimated GFR POC Glucose 75 79 Random Glucose Calcium Phosphorus Magnesium Total Bilirubin AST ALT Alkaline Phosphatase Total Protein Albumin 09/26/18 07:16 WBC RBC Hgb Hct MCV MCH MCHC RDW Plt Count MPV Prelim Diff (Auto) Neut % (Auto) Lymph % (Auto) [place] % (Auto) Eos % (Auto) Baso % (Auto) Neut # (Auto) Lymph # (Auto) [place] # (Auto) Eos # (Auto) Baso # (Auto) WBC Differential Seg Neuts % (Manual) Band Neuts % (Manual) Lymphocytes % (Manual) Monocytes % (Manual) Eosinophils % (Manual) Basophils % (Manual) Metamyelocytes % (Man) Myelocytes % (Man) Abs Neuts (Manual) Differential Comment Toxic Granulation Platelet Estimate Platelet Morphology Ovalocytes Puncture Site Patient Temperature O2 Saturation ABG pH ABG pCO2 ABG pO2 ABG HCO3 ABG O2 Content ABG Base Excess ABG Methemoglobin Nilesh Test Hemoglobin Carboxyhemoglobin O2 Delivery Device Vent Setting Inspired O2 Critical Value Sodium 144 Potassium 3.7 Chloride 109 H Carbon Dioxide 24.7 Anion Gap 10 BUN 7 Creatinine 0.61 Estimated GFR Greater than 89 POC Glucose Random Glucose 69 L Calcium 8.0 L Phosphorus 2.0 L Magnesium 2.3 Total Bilirubin 0.4 AST 40 H ALT 34 Alkaline Phosphatase 67 Total Protein 5.8 L Albumin 2.1 L Result Diagrams: 09/26/18 07:16 09/26/18 07:16 Microbiology: Microbiology 09/18/18 13:00 Fungal Smear - Final Bronchial Washings - Right Middle Lobe No fungal elements seen Fungal Culture - Preliminary No growth in 1 week 09/18/18 13:00 Acid Fast Bacilli Smear - Final Bronchial Washings - Right Middle Lobe No acid fast bacilli seen Mycobacterial Culture - Preliminary No growth in 1 week Imaging: Abdomen/Bladder Ultrasound 09/16/18 08:29 CONCLUSION: 1. Negative renal sonogram other than right renal cyst. Abdomen/Pelvis CT 09/20/18 00:00 CONCLUSION: 1. No acute abnormality demonstrated within the abdomen or pelvis. 2. There is an area of nonspecific subcutaneous edema and induration of the left lateral flank. This could be cellulitis but is not typical of an organized abscess at this time. Chest CT 09/20/18 00:00 CONCLUSION: 1. There is elevation of left hemidiaphragm with compressive atelectasis and consolidation of the left lower lobe. 2. Patchy right upper lobe groundglass infiltrate in right lower lobe posterior basilar consolidation. Abdomen X-Ray 09/23/18 00:00 CONCLUSION: Tip of the NG tube in the fundus of the stomach. Chest X-Ray 09/26/18 00:00 CONCLUSION: Some improvement with minimal decrease in amount of interstitial edema Marked elevation of the left hemidiaphragm Procedures: 09/15/2018: Intubation 09/16/2018: Extubation 09/17/2018: Reintubation 09/18/2018: Extubation; bronchoscopy with reintubation 09/22/2018: Tracheostomy Assessment and Plan - Disease Oriented Problem List (1) CHF exacerbation (2) Hypertension (3) COPD (chronic obstructive pulmonary disease) (4) RAD (obstructive sleep apnea) (5) GERD (gastroesophageal reflux disease) (6) Afib (7) Anxiety (8) Acute respiratory failure (9) Pickwickian syndrome (10) Acute renal failure (11) Paroxysmal atrial fibrillation (12) MRSA pneumonia Pertinent Non-Medical Issues: Psychosocial: Patient was born and raised in [place]. She was ; her ex- is now . 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 Patient has 1 daughter, Riya ( to Yasemin). She has 2 granddaughters ages 22 and 17 (Krystal and Niki). Spiritual: [employer] Legal: Per [place] statutes, in the absence of written advanced directives healthcare proxy decision making falls to the patient's daughter (Riya). Ethical issues impacting care: No known ethical issues impacting care at this time. . Important Contacts: Riya Valencia, daughter: [phone] Prognosis: Patient is a morbidly obese 63-year-old female with multiple comorbidities status post tracheostomy. She remains critically ill but stable requiring ICU level of care. Condition guarded. Code Status: Full Code Plan: * FULL CODE * Decision making: Per [place] statutes, in the absence of written advanced directives healthcare proxy decision making falls to the patient's daughter ( Riya) * Discussed patient with RN (Dolly) * AGGRESSIVE GOALS * Discussed patient with Dr. Mortensen and Dr. Archuleta; recommendations to consult [facility] for [facility]. * Symptoms: Debility: Patient is debilitated at baseline secondary to multiple comorbid conditions: Sleep apnea, CHF, COPD (on home oxygen), hypertension, morbid obesity and atrial fibrillation. Status post tracheostomy for multiple failed extubation trials. [facility] Dyspnea: Patient with a history of COPD, RAD, congestive heart failure , pickwickian syndrome who has failed multiple extubation attempts. Status post tracheostomy 09/22/2018; tolerated spontaneous breathing trials/CPAP pressure support. Oncology consulted for abnormal cytology and bronchial washings suspicious for squamous cell carcinoma. Per Dr. Holcomb (oncology), cytology is nondiagnostic; he is hopeful this is a result of bronchitis pneumonia/ inflammation and will improve as the patient's pulmonary issues resolve. If the patient were found to have SCC, she would not be a candidate for aggressive interventions at this time given her current medical condition and functional status. If her condition/ functional status improve, may consider repeating a CT of the chest and a bronchoscopy in the future. * Palliative care will continue to follow this patient to establish stress, assist with symptom management and clarification of medical treatment goals. Attestation Attestation: To help prompt me to consider important information that might be impacting today's encounter and assessment, information from prior notes written by myself or my colleagues may have been "brought forward" into today's note. My signature on this note, however, is an attestation that I personally performed the exam, history, and/or decision-making noted today, and, unless otherwise indicated, the interactions with patient, family, and staff as well as the review of records all occurred today. I also attest that the listed assessment and stated plan reflect my best clinical judgment today based on the combination of historical information, prior notes, and today's exam/ interactions. When time spent is documented, it refers only to time spent today by the signer, or if indicated, combined time spent today by collaborating physician/nurse practitioner.
[2018-09-26] MEDS: Nystatin 100,000 UNITS/GM Powder 15 GM Bottle TOPICAL SCH ×3 (14:40→21:13)
--- NOTE | 2018-09-26 15:02 | P.DIET ---
Nutritional Evaluation Type of nutrition evaluation: follow-up Nutrition consult regarding: Tube Feeding Screening comments: 09/15/18 TF review Subjective Subjective Comments: 09/15/18 Assessment here uses guidelines for critically ill patients from [facility] and [facility]. Per family medicine H&P pt had gained 45lb in 3-4months even though she had not been eating as much as usual. Objective - Diagnosis CHF exacerbation - Objective % IBW: 218 (IBW = 142lb) Body Weight Used for Calculations: IBW Energy Needs - Lower Range (kCal/kg): 25 Energy Needs - Upper Range (kCal/kg): 30 Lower Limit kCal/kg (kCals): 1,613 Upper Limit kCal/kg (kCals): 1,935 Lower Limit Protein Factor (Grams per Kg): 1.2 Upper Limit Protein Factor (Grams per Kg): 1.4 Lower Protein Needs (Protein): 77 Upper Protein Needs (Protein): 90 Dietitian Reviewed in Medical Record: Curent medications, Intake & Output, Labs , Medical history, Tube feeding Diet Order: NPO, TF'ing Objective Comments: PMH: Afib, CHF, HTN Meds: insulin Labs: estGFR 53, Cr 1.05 LBM 09/20/18 09/15/18: Intubated 09/16/18: Extubated 09/17/18: Reintubated 09/18/18: Extubated; bronchoscopy and reintubated 09/22/18: Trach placement Assessment Assessment: Pt s/p trach placed on 09/22/18, off sedation and awake, CPAP + T-piece trials. Pt had TF restarted, currently TF'ing Jevity 1.5 running @ 20mL/hr w/ goal rate of 55mL/hr as recommended. RD recommend Jevity 1.5 @ 55mL/hr to provide 1980kcal , 84g of protein, and 1003mL of free water to best meet pts updated energy + protein needs. Continue to monitor TF tolerance. Labs reviewed, dietitian following. Recommendations: 1. RD continue to recommend Jevity 1.5 @ 55mL/hr to best meet pts updated needs 2. Continue to monitor TF tolerance 3. Dietitian following Dietitian to Monitor: Lab values, Glucose level, Intake & Output, Tube feeding tolerance, Weight change, Medical course
--- NOTE | 2018-09-26 17:37 | P.PN ---
Subjective Interval history: al4ert nad on vent Physical Exam Vital signs: Vital Signs 09/25/18 18:00 09/25/18 18:01 09/25/18 19:00 Temperature Pulse Rate 68 64 63 Respiratory Rate 10 L 7 L 12 Blood Pressure 114/57 L 132/62 Pulse Oximetry 94 L 94 L 80 L 09/25/18 19:54 09/25/18 20:00 09/25/18 20:37 Temperature 98 F Pulse Rate 68 65 67 Respiratory Rate 19 14 14 Blood Pressure 144/66 H Pulse Oximetry 92 L 94 L 09/25/18 21:00 09/25/18 21:30 09/25/18 22:00 Temperature Pulse Rate 68 78 Respiratory Rate 18 22 16 Blood Pressure 141/68 H 149/76 H Pulse Oximetry 95 93 L 96 09/25/18 23:00 09/25/18 23:21 09/26/18 00:00 Temperature 98.1 F Pulse Rate 66 67 64 Respiratory Rate 16 21 18 Blood Pressure 139/64 135/65 Pulse Oximetry 94 L 95 09/26/18 01:00 09/26/18 02:00 09/26/18 03:00 Temperature Pulse Rate 71 70 64 Respiratory Rate 18 20 20 Blood Pressure 146/75 H 149/65 H 154/66 H Pulse Oximetry 95 94 L 94 L 09/26/18 03:54 09/26/18 04:00 09/26/18 04:32 Temperature 98.7 F Pulse Rate 74 72 Respiratory Rate 20 22 20 Blood Pressure 146/66 H Pulse Oximetry 95 96 09/26/18 05:00 09/26/18 05:01 09/26/18 06:00 Temperature Pulse Rate 67 68 66 Respiratory Rate 24 18 23 Blood Pressure 129/68 Pulse Oximetry 94 L 94 L 94 L 09/26/18 06:01 09/26/18 07:00 09/26/18 07:01 Temperature Pulse Rate 65 68 67 Respiratory Rate 19 18 19 Blood Pressure 143/77 H 140/77 Pulse Oximetry 94 L 95 95 09/26/18 08:00 09/26/18 08:01 09/26/18 08:14 Temperature Pulse Rate 71 69 71 Respiratory Rate 19 18 15 Blood Pressure 128/61 Pulse Oximetry 93 L 09/26/18 08:15 09/26/18 09:00 09/26/18 09:01 Temperature Pulse Rate 78 76 Respiratory Rate 14 19 18 Blood Pressure 123/60 Pulse Oximetry 100 80 L 79 L 09/26/18 09:20 09/26/18 10:00 09/26/18 10:01 Temperature Pulse Rate 99 H 80 79 Respiratory Rate 22 23 Blood Pressure 135/61 Pulse Oximetry 90 L 90 L 09/26/18 10:15 09/26/18 11:00 09/26/18 11:01 Temperature Pulse Rate 70 68 68 Respiratory Rate 18 18 Blood Pressure 89/49 L Pulse Oximetry 09/26/18 11:19 09/26/18 11:43 09/26/18 12:00 Temperature Pulse Rate 70 69 71 Respiratory Rate 18 19 Blood Pressure 103/55 L Pulse Oximetry 09/26/18 12:01 09/26/18 12:11 09/26/18 13:00 Temperature Pulse Rate 72 71 75 Respiratory Rate 21 18 19 Blood Pressure 106/53 L Pulse Oximetry 100 09/26/18 13:01 09/26/18 14:00 09/26/18 14:01 Temperature Pulse Rate 73 70 75 Respiratory Rate 19 18 19 Blood Pressure 115/58 L 108/56 L Pulse Oximetry 09/26/18 14:39 09/26/18 15:00 09/26/18 15:01 Temperature Pulse Rate 77 79 77 Respiratory Rate 19 19 Blood Pressure 96/47 L Pulse Oximetry 95 92 L 09/26/18 15:46 09/26/18 16:00 09/26/18 16:01 Temperature Pulse Rate 72 71 70 Respiratory Rate 21 24 24 Blood Pressure 90/49 L Pulse Oximetry 92 L 79 L 79 L 09/26/18 16:20 Temperature Pulse Rate 67 Respiratory Rate Blood Pressure Pulse Oximetry Intake & Output 09/25/18 09/26/18 09/26/18 18:59 06:59 18:59 Intake Total 1000 / 1000 1000 / 1000 580 / 580 Output Total 1100 / 1100 1200 / 1200 Balance -100 / -100 -200 / -200 580 / 580 Weight 149 kg Intake: IV 500 / 500 400 / 400 380 / 380 Azactam Inj 1,000 MG In NS Inj 200 / 200 100 / 100 90 / 90 100 ML @ 200 mls/hr IV.SIG Q8H [facility] Rx#:[id number] Zyvox 600 mg Premix 300 ML @ 300 / 300 300 / 300 290 / 290 300 mls/hr IV.SIG Q12H [facility] Rx#: [id number] Oral 0 / 0 Water Bolus Amount 200 / 200 300 / 300 Free Water Amount 300 / 300 300 / 300 200 / 200 Output: Urine Amount (Catheter) 1100 / 1100 1200 / 1200 Female External 1100 / 1100 1200 / 1200 Other: Date of Last Bowel Movement 09/21/18 09/21/18 09/25/18 # Incontinent Bowel Movements 1 Narrative: Narrative: GENERAL: Intubated. Awake and alert, trach collar in place SKIN: Warm and dry. Some redness in her inner thigh area, external female catheter in place HEENT: Atraumatic. Normocephalic. Pupils equal and round. EOMI. No scleral icterus. No injection or drainage. Oropharynx clear of lesions CARDIOVASCULAR: Regular rate and rhythm. No murmur appreciated. RESPIRATORY: CTAB, no increased work of breathing. Good air movement GASTROINTESTINAL: Abdomen soft, nondistended. Bowel sounds are present EXTREMITIES: Early venous stasis changes noted bilaterally. Bilateral 2+ pitting pre-tibial edema. - Urinary Catheter Management Female External Cath placed during this visit: no Straight Cath placed during this visit: yes, but has since been removed by the nurse Reason for continuing: Not indwelling catheter Insertion date: 09/20/18 Insertion time: 02:45 Removal date: 09/20/18 Removal time: 03:00 Indwelling Urethral Catheter Cath placed during this visit: yes, but has since been removed by the nurse Reason for continuing: Not indwelling catheter Removal date: 09/19/18 Removal time: 18:00 Results - Labs CBC & Chem 7: 09/26/18 07:16 09/26/18 07:16 Laboratory Results - last 24 hr 09/25/18 09/26/18 09/26/18 23:34 05:47 07:16 WBC 7.0 RBC 3.03 L Hgb 8.3 L Hct 25.7 L MCV 85.1 MCH 27.4 MCHC 32.2 RDW 16.0 Plt Count 345 MPV 7.0 Neut % (Auto) 71.7 H Lymph % (Auto) 14.6 Schuyler % (Auto) 8.2 H Eos % (Auto) 4.8 H Baso % (Auto) 0.7 Neut # (Auto) 5.0 Lymph # (Auto) 1.0 Schuyler # (Auto) 0.6 Eos # (Auto) 0.3 Baso # (Auto) 0.1 WBC Differential . Differential Comment Auto diff final Sodium Potassium Chloride Carbon Dioxide Anion Gap BUN Creatinine Estimated GFR POC Glucose 75 79 Random Glucose Calcium Phosphorus Magnesium Total Bilirubin AST ALT Alkaline Phosphatase Total Protein Albumin Procalcitonin 09/26/18 09/26/18 09/26/18 07:16 11:50 13:39 WBC RBC Hgb Hct MCV MCH MCHC RDW Plt Count MPV Neut % (Auto) Lymph % (Auto) Schuyler % (Auto) Eos % (Auto) Baso % (Auto) Neut # (Auto) Lymph # (Auto) Schuyler # (Auto) Eos # (Auto) Baso # (Auto) WBC Differential Differential Comment Sodium 144 Potassium 3.7 Chloride 109 H Carbon Dioxide 24.7 Anion Gap 10 BUN 7 Creatinine 0.61 Estimated GFR Greater than 89 POC Glucose 82 Random Glucose 69 L Calcium 8.0 L Phosphorus 2.0 L Magnesium 2.3 Total Bilirubin 0.4 AST 40 H ALT 34 Alkaline Phosphatase 67 Total Protein 5.8 L Albumin 2.1 L Procalcitonin 0.12 H Microbiology 09/18/18 13:00 Bronchial Washings - Right Middle Lobe Fungal Smear - Final No fungal elements seen 09/18/18 13:00 Bronchial Washings - Right Middle Lobe Fungal Culture - Preliminary No growth in 1 week 09/18/18 13:00 Bronchial Washings - Right Middle Lobe Acid Fast Bacilli Smear - Final No acid fast bacilli seen 09/18/18 13:00 Bronchial Washings - Right Middle Lobe Mycobacterial Culture - Preliminary No growth in 1 week - Imaging Impressions Chest X-Ray 09/26/18 00:00 CONCLUSION: Some improvement with minimal decrease in amount of interstitial edema Marked elevation of the left hemidiaphragm Assessment and Plan - Plan RESPIRATORY FAILURE COPD CHF RAD AFIB PLAN vent support bronchodilator therapy WE[employer]
[2018-09-27] MEDS: Oral Hygiene Kit OROPHARYNG SCH ×4 (00:25→16:17)
[2018-09-27] MEDS: Insulin NovoLOG Aspart Correctional Sugar Inj SQ SCH ×4 (00:25→19:56)
[2018-09-27] MEDS: Artificial Tears Opth Drops 15 ML Bottle EACH EYE SCH ×3 (02:47→19:57)
--- NOTE | 2018-09-27 05:42 | XR ---
EXAM DATE: 09/27/2018 5:02 AM EST AGE/SEX: 63 years / Female INDICATIONS: Short of breath. CLINICAL DATA: This is the patient's subsequent encounter. Patient reports that signs and symptoms h ave been present for 1 week and indicates a pain score of 0/10. MEDICAL/SURGICAL HISTORY: . Congestive heart failure. Chronic obstructive pulmonary disease. H ypertension. None. [place] [facility] [place]26/[place]. . FINDINGS: A single AP view of the chest demonstrates diminished lung volumes with elevation left hemidiaphragm. Bibasilar densities. Tracheostomy tube and nasogastric tube unchanged. Cardiomegaly. The cardiomedi astinal contours are unremarkable. Osseous structures are intact. CONCLUSION: 1. Elevation left hemidiaphragm with bibasilar densities. 2. Cardiomegaly. Electronically signed by: Sherman Monroe MD Board Certified Radiologist 09/27/2018 5:41 AM EST
--- NOTE | 2018-09-27 09:01 | P.PNFP ---
Subjective Interval history: Patient was seen and examined this morning. She did not have any major complaints and states that she feels a little bit stronger than the previous day. However, she is worried that she may be developing a urinary tract infection due to burning. Notably, a urinalysis that was done on the previous day only showed moderate occult blood. She did not have any T-piece trials yesterday but was on CPAP for most of the day. <EkSoha Cuello U - 09/27/18 10:50> Results - Labs Result diagrams: 09/28/18 05:23 09/28/18 05:23 <Filomena Williamson - 09/29/18 12:27> Abnormal lab results 09/26/18 09/26/18 Range/Units 13:39 23:47 POC Glucose 118 H (68-110) mg/dl Procalcitonin 0.12 H (0.00-0.07) ng/mL <Soha Potter U - 09/27/18 09:01> - Imaging Impressions Chest X-Ray 09/26/18 00:00 CONCLUSION: Some improvement with minimal decrease in amount of interstitial edema Marked elevation of the left hemidiaphragm Chest X-Ray 09/27/18 06:00 CONCLUSION: 1. Elevation left hemidiaphragm with bibasilar densities. 2. Cardiomegaly. <Soha Potter U - 09/27/18 09:01> Physical Exam Vital signs: Vital Signs 09/28/18 12:57 Respiratory Rate 19 Pulse Oximetry 96 Intake & Output 09/28/18 09/29/18 09/29/18 18:59 06:59 18:59 Intake Total 100 / 100 Balance 100 / 100 Intake: Free Water Amount 100 / 100 Other: Date of Last Bowel Movement 09/25/18 <Filomena Williamson - 09/29/18 12:27> Vital Signs 09/26/18 09:20 09/26/18 10:00 09/26/18 10:01 Pulse Rate 99 H 80 79 Respiratory Rate 22 23 Blood Pressure 135/61 Pulse Oximetry 90 L 90 L 09/26/18 10:15 09/26/18 11:00 09/26/18 11:01 Pulse Rate 70 68 68 Respiratory Rate 18 18 Blood Pressure 89/49 L Pulse Oximetry 09/26/18 11:19 09/26/18 11:43 09/26/18 12:00 Pulse Rate 70 69 71 Respiratory Rate 18 19 Blood Pressure 103/55 L Pulse Oximetry 09/26/18 12:01 09/26/18 12:11 09/26/18 13:00 Pulse Rate 72 71 75 Respiratory Rate 21 18 19 Blood Pressure 106/53 L Pulse Oximetry 100 09/26/18 13:01 09/26/18 14:00 09/26/18 14:01 Pulse Rate 73 70 75 Respiratory Rate 19 18 19 Blood Pressure 115/58 L 108/56 L Pulse Oximetry 09/26/18 14:39 09/26/18 15:00 09/26/18 15:01 Pulse Rate 77 79 77 Respiratory Rate 19 19 Blood Pressure 96/47 L Pulse Oximetry 95 92 L 09/26/18 15:46 09/26/18 16:00 09/26/18 16:01 Pulse Rate 72 71 70 Respiratory Rate 21 24 24 Blood Pressure 90/49 L Pulse Oximetry 92 L 79 L 79 L 09/26/18 16:20 09/26/18 17:00 09/26/18 18:00 Pulse Rate 67 85 72 Respiratory Rate 26 H 21 Blood Pressure Pulse Oximetry 83 L 09/26/18 18:01 09/26/18 18:53 09/26/18 19:00 Pulse Rate 72 67 76 Respiratory Rate 20 23 Blood Pressure 113/54 L Pulse Oximetry 81 L 80 L 09/26/18 19:01 09/26/18 19:20 09/26/18 20:00 Pulse Rate 76 77 71 Respiratory Rate 22 19 21 Blood Pressure 118/59 L Pulse Oximetry 76 L 94 L 96 09/26/18 20:01 09/26/18 21:00 09/26/18 21:01 Pulse Rate 71 74 75 Respiratory Rate 19 21 19 Blood Pressure 122/68 110/59 L Pulse Oximetry 96 95 96 09/26/18 22:00 09/26/18 22:01 09/26/18 23:00 Pulse Rate 68 67 69 Respiratory Rate 20 20 20 Blood Pressure 107/54 L Pulse Oximetry 97 97 98 09/26/18 23:01 09/26/18 23:24 09/27/18 00:00 Pulse Rate 67 72 67 Respiratory Rate 19 22 22 Blood Pressure 121/59 L Pulse Oximetry 99 97 09/27/18 00:01 09/27/18 00:49 09/27/18 01:00 Pulse Rate 69 67 Respiratory Rate 20 18 20 Blood Pressure 116/67 Pulse Oximetry 97 97 97 09/27/18 01:01 09/27/18 02:00 09/27/18 02:01 Pulse Rate 66 70 69 Respiratory Rate 18 25 H 22 Blood Pressure 108/59 L 119/60 Pulse Oximetry 97 96 96 09/27/18 03:00 09/27/18 03:01 09/27/18 03:42 Pulse Rate 69 76 Respiratory Rate 20 24 22 Blood Pressure 144/60 H Pulse Oximetry 98 98 98 09/27/18 04:00 09/27/18 04:05 09/27/18 05:00 Pulse Rate 73 68 69 Respiratory Rate 22 17 19 Blood Pressure 133/61 Pulse Oximetry 97 97 97 09/27/18 05:01 09/27/18 06:00 09/27/18 06:01 Pulse Rate 68 69 69 Respiratory Rate 19 19 20 Blood Pressure 129/63 122/60 Pulse Oximetry 96 97 98 09/27/18 08:15 Pulse Rate 67 Respiratory Rate 16 Blood Pressure Pulse Oximetry 97 Intake & Output 09/26/18 09/27/18 09/27/18 18:59 06:59 18:59 Intake Total 1358 / 1358 1027 / 1027 Output Total 400 / 400 750 / 750 Balance 958 / 958 277 / 277 Weight 154.2 kg Intake: IV 380 / 380 Azactam Inj 1,000 MG In NS Inj 90 / 90 100 ML @ 200 mls/hr IV.SIG Q8H [facility] Rx#:[id number] Zyvox 600 mg Premix 300 ML @ 290 / 290 300 mls/hr IV.SIG Q12H [facility] Rx#: [id number] Oral 0 / 0 Tube Feeding 318 / 318 527 / 527 Tube Irrigant 60 / 60 Water Bolus Amount 300 / 300 200 / 200 Free Water Amount 300 / 300 300 / 300 Output: Urine Amount (Catheter) 400 / 400 750 / 750 Female External 400 / 400 750 / 750 Other: Date of Last Bowel Movement 09/25/18 09/25/18 <Eko R3,Soha U - 09/27/18 09:01> Narrative: Narrative: GENERAL: Awake and alert, trach collar in place SKIN: Warm and dry. HEENT: Atraumatic. Normocephalic. Pupils equal and round. EOMI. No scleral icterus. No injection or drainage. CARDIOVASCULAR: Regular rate and rhythm. No murmur appreciated. RESPIRATORY: Poor air movement but no increased work of breathing. Otherwise, clear to auscultation GASTROINTESTINAL: Abdomen soft, nondistended. Bowel sounds are present EXTREMITIES: Early venous stasis changes noted bilaterally. Bilateral 1+ pitting pre-tibial edema. <Eko R3Soha U 09/27/18 09:12> - Urinary Catheter Management Female External Cath placed during this visit: no <Filomena Williamson 09/29/18 12:27> no <Eko Soha Giraldo U 09/27/18 10:50> Indwelling Urethral Catheter Cath placed during this visit: no <Filomena Williamson 09/29/18 12:27> yes, but has since been removed by the nurse <Eko Soha Giraldo 09/27/18 10:50> Reason for continuing: Not indwelling catheter <Eko R3Soha U 09/27/18 09 :01> Removal date: 09/19/18 <Eko R3,Soha U 09/27/18 09:01> Removal time: 18:00 <Eko R3,Soha U 09/27/18 09:01> Straight Cath placed during this visit: no <Filomena Williamson 09/29/18 12:27> yes, but has since been removed by the nurse <Eko Soha Giraldo 09/27/18 10:50> Reason for continuing: Not indwelling catheter <Eko R3Soha U 09/27/18 09 :01> Insertion date: 09/20/18 <Eko R3,Soha U 09/27/18 09:01> Insertion time: 02:45 <Eko R3,Soha U 09/27/18 09:01> Removal date: 09/20/18 <Eko R3,Soha U 09/27/18 09:01> Removal time: 03:00 <Eko R3,Soha U 09/27/18 09:01> Assessment and Plan - Assessment (1) Acute respiratory failure Code(s): J96.00 - Acute respiratory failure, unspecified whether with hypoxia or hypercapnia Status: Acute (2) MRSA pneumonia Code(s): J15.212 - Pneumonia due to Methicillin resistant Staphylococcus aureus Status: Acute (3) Heart failure with preserved ejection fraction Code(s): I50.30 - Unspecified diastolic (congestive) heart failure Status: Acute (4) RAD (obstructive sleep apnea) Code(s): G47.33 - Obstructive sleep apnea (adult) (pediatric) Status: Acute (5) Hypertension Code(s): I10 - Essential (primary) hypertension Status: Acute (6) COPD (chronic obstructive pulmonary disease) Code(s): J44.9 - Chronic obstructive pulmonary disease, unspecified Status: Acute (7) GERD (gastroesophageal reflux disease) Code(s): K21.9 - Gastro-esophageal reflux disease without esophagitis Status: Acute (8) Afib Code(s): I48.91 - Unspecified atrial fibrillation Status: Acute (9) Anxiety Code(s): F41.9 - Anxiety disorder, unspecified Status: Acute (10) Tremors of nervous system Code(s): R25.1 - Tremor, unspecified Status: Acute (11) Chronic back pain Code(s): M54.9 - Dorsalgia, unspecified; G89.29 - Other chronic pain Status: Acute (12) Anemia Code(s): D64.9 - Anemia, unspecified Status: Acute (13) Abnormal cytology Code(s): R89.6 - Abnormal cytological findings in specimens from other organs, systems and tissues Status: Acute <Filomena Williamson - 09/29/18 12:27> (1) Acute respiratory failure Code(s): J96.00 - Acute respiratory failure, unspecified whether with hypoxia or hypercapnia Status: Acute (2) MRSA pneumonia Code(s): J15.212 - Pneumonia due to Methicillin resistant Staphylococcus aureus Status: Acute (3) Heart failure with preserved ejection fraction Code(s): I50.30 - Unspecified diastolic (congestive) heart failure Status: Acute (4) RAD (obstructive sleep apnea) Code(s): G47.33 - Obstructive sleep apnea (adult) (pediatric) Status: Acute (5) Hypertension Code(s): I10 - Essential (primary) hypertension Status: Acute (6) COPD (chronic obstructive pulmonary disease) Code(s): J44.9 - Chronic obstructive pulmonary disease, unspecified Status: Acute (7) GERD (gastroesophageal reflux disease) Code(s): K21.9 - Gastro-esophageal reflux disease without esophagitis Status: Acute (8) Afib Code(s): I48.91 - Unspecified atrial fibrillation Status: Acute (9) Anxiety Code(s): F41.9 - Anxiety disorder, unspecified Status: Acute (10) Tremors of nervous system Code(s): R25.1 - Tremor, unspecified Status: Acute (11) Chronic back pain Code(s): M54.9 - Dorsalgia, unspecified; G89.29 - Other chronic pain Status: Acute (12) Anemia Code(s): D64.9 - Anemia, unspecified Status: Acute (13) Abnormal cytology Code(s): R89.6 - Abnormal cytological findings in specimens from other organs, systems and tissues Status: Acute <Eko R3,Soha U - 09/27/18 10:49> - Assessment and Plan 63-year-old female presented with shortness of breath presumed to be due to CHFpEF but likely related to her chronic obstructive sleep apnea. The patient was noted to be obtunded 09/15 with acute respiratory failure and marked CO2 retention requiring emergent intubation with mechanical ventilation. On 09/18, bronchoscopy was performed with removal of copious amounts of mucus mixed with bright red blood from both bronchi. She was also started on vancomycin and aztreonam due to fevers. Bronchial washings and sputum grew MRSA - ID consulted on 09/20/2018 - switched to Linezolid and aztreonam and now improved. Tracheostomy tube was placed on 09/22/18. Right middle lobe bronchial washings from 09/20/2018 is suspicious for squamous cell carcinoma. Oncology consulted and stated that pt is not a candidate for any further intervention at this time due to her respiratory status. Currently undergoing CPAP and T-piece trials. Acute hypercarbic respiratory failure -Tracheostomy tube in place -Continuing CPAP and T-piece trials -No pressors -Critical care assisting with management Obstructive sleep apnea with obesity hypoventilation syndrome -Last PFT showed mild restrictive lung disease -Trach as above -Pulmonology on board. Patient known to Dr. 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 Holcomb * Not sure of diagnosis, no solid mass seen on CT * At this time, she is not a candidate for any further investigation before treatment options are even considered * If her current status improves, she could possible undergo further testing in [address] scan and bronchoscopy -Palliative care on board Acute Kidney Injury - Resolved - Continue Furosemide - Strict Is and Os - Avoid nephrotoxic medications Heart Failure with Preserved Ejection Fraction -Echocardiogram: 09/06/12 - ejection fraction of 50-55% with normal wall motion -Monitor strict I/O's -Continue Furosemide AFIB -Stable -Continue home sotalol if BP can tolerate Hypertension -Monitor vital signs -Hold home BP medications due to low systolic BP around 110s COPD -The patient carries a diagnosis of COPD per chart review -Possible heavy secondhand smoke exposure or symptoms all stemming from RAD -Spiriva nebulizer 0.5 mg q4h scheduled - she reports allergy to albuterol Anemia -Chronic anemia -Currently stable, continue to monitor CBC daily -Transfuse as needed Anxiety -Continue home lorazepam 1 mg p.o. twice daily prn GERD -On Famotidine for ppx Chronic back pain/arthritis -PT evaluate and treat while in the hospital once patient is completely off the ventilator FEN/ppx F: Free water flushes E: On ICU electrolyte replacement protocol N: RD recommends Jevity 1.5 @ 55mL/hr to provide 1980kcal, 84g of protein, and 1003mL of free water to best meet pt's updated needs -DVT ppx: Lovenox held due to hemoptysis, SCDs in place -GI ppx: Famotidine, Senna/Docusate <Eko R3,Soha U - 02/26/19 09:16> Discussed Condition With: Pt's nurse, Dr. Williamson <Soha Potter U - 09/27/18 09:16> Discharge Planning: Case management is working on transferring her to a select hospital for cardiopulmonary rehab <Soha Potter U - 09/27/18 09:12> - Attending Attestation The exam, history, and the medical decision-making described in the above note were completed with the assistance of the resident physician. I reviewed and agree with the findings presented. I attest that I had a [id number] encounter with the patient on the same day, and personally performed and documented my assessment and findings in the medical record. hopefully she can be transferred soon <Filomena Williamson M - 09/29/18 12:27>
[2018-09-27] MEDS: Chlorhexidine 0.12% Oral Kit 15 ML UDC OROPHARYNG SCH ×2 (09:46→19:57)
[2018-09-27] MEDS: Simethicone 125 MG Chew Tablet PO SCH (09:47)
[2018-09-27] MEDS: Senna/Docusate Sodium 8.6/50 MG Tablet PO SCH ×2 (09:47→21:20)
[2018-09-27] MEDS: hydrALAZINE 10 MG Tablet PO SCH ×2 (09:47→21:20)
[2018-09-27] MEDS: Famotidine PF Inj 20 MG/2 ML Vial IV.PUSH SCH ×2 (09:47→21:21)
[2018-09-27] MEDS: QUEtiapine 100 MG Tablet PO SCH ×2 (09:48→21:46)
[2018-09-27] MEDS: Nystatin 100,000 UNITS/GM Powder 15 GM Bottle TOPICAL SCH ×2 (09:50→21:47)
--- NOTE | 2018-09-27 15:43 | P.PN ---
Subjective Interval history: ALERT ON VENT Physical Exam Vital signs: Vital Signs 09/26/18 15:46 09/26/18 16:00 09/26/18 16:01 Temperature Pulse Rate 72 71 70 Respiratory Rate 21 24 24 Blood Pressure 90/49 L Pulse Oximetry 92 L 79 L 79 L 09/26/18 16:20 09/26/18 17:00 09/26/18 18:00 Temperature Pulse Rate 67 85 72 Respiratory Rate 26 H 21 Blood Pressure Pulse Oximetry 83 L 09/26/18 18:01 09/26/18 18:53 09/26/18 19:00 Temperature Pulse Rate 72 67 76 Respiratory Rate 20 23 Blood Pressure 113/54 L Pulse Oximetry 81 L 80 L 09/26/18 19:01 09/26/18 19:20 09/26/18 20:00 Temperature Pulse Rate 76 77 71 Respiratory Rate 22 19 21 Blood Pressure 118/59 L Pulse Oximetry 76 L 94 L 96 09/26/18 20:01 09/26/18 21:00 09/26/18 21:01 Temperature Pulse Rate 71 74 75 Respiratory Rate 19 21 19 Blood Pressure 122/68 110/59 L Pulse Oximetry 96 95 96 09/26/18 22:00 09/26/18 22:01 09/26/18 23:00 Temperature Pulse Rate 68 67 69 Respiratory Rate 20 20 20 Blood Pressure 107/54 L Pulse Oximetry 97 97 98 09/26/18 23:01 09/26/18 23:24 09/27/18 00:00 Temperature Pulse Rate 67 72 67 Respiratory Rate 19 22 22 Blood Pressure 121/59 L Pulse Oximetry 99 97 09/27/18 00:01 09/27/18 00:49 09/27/18 01:00 Temperature Pulse Rate 69 67 Respiratory Rate 20 18 20 Blood Pressure 116/67 Pulse Oximetry 97 97 97 09/27/18 01:01 09/27/18 02:00 09/27/18 02:01 Temperature Pulse Rate 66 70 69 Respiratory Rate 18 25 H 22 Blood Pressure 108/59 L 119/60 Pulse Oximetry 97 96 96 09/27/18 03:00 09/27/18 03:01 09/27/18 03:42 Temperature Pulse Rate 69 76 Respiratory Rate 20 24 22 Blood Pressure 144/60 H Pulse Oximetry 98 98 98 09/27/18 04:00 09/27/18 04:05 09/27/18 05:00 Temperature Pulse Rate 73 68 69 Respiratory Rate 22 17 19 Blood Pressure 133/61 Pulse Oximetry 97 97 97 09/27/18 05:01 09/27/18 06:00 09/27/18 06:01 Temperature Pulse Rate 68 69 69 Respiratory Rate 19 19 20 Blood Pressure 129/63 122/60 Pulse Oximetry 96 97 98 09/27/18 07:00 09/27/18 07:01 09/27/18 08:00 Temperature 98.2 F Pulse Rate 70 71 69 Respiratory Rate 19 21 19 Blood Pressure 116/55 L Pulse Oximetry 96 98 97 09/27/18 08:01 09/27/18 08:15 09/27/18 08:40 Temperature Pulse Rate 68 67 71 Respiratory Rate 20 16 Blood Pressure 106/56 L Pulse Oximetry 97 97 09/27/18 09:00 09/27/18 09:01 09/27/18 10:00 Temperature Pulse Rate 71 71 70 Respiratory Rate 27 H 22 19 Blood Pressure 98/69 L Pulse Oximetry 97 98 96 09/27/18 10:01 09/27/18 10:09 09/27/18 11:00 Temperature Pulse Rate 70 74 68 Respiratory Rate 16 20 Blood Pressure 147/66 H Pulse Oximetry 97 09/27/18 11:01 09/27/18 11:29 09/27/18 12:00 Temperature Pulse Rate 68 61 60 Respiratory Rate 18 17 20 Blood Pressure 107/53 L Pulse Oximetry 88 L 98 09/27/18 12:01 09/27/18 12:04 09/27/18 14:00 Temperature Pulse Rate 60 60 63 Respiratory Rate 20 21 Blood Pressure 111/54 L Pulse Oximetry 09/27/18 15:06 Temperature Pulse Rate 63 Respiratory Rate 24 Blood Pressure Pulse Oximetry Intake & Output 09/26/18 09/27/18 09/27/18 18:59 06:59 18:59 Intake Total 1358 / 1358 1327 / 1327 100 / 100 Output Total 400 / 400 750 / 750 Balance 958 / 958 577 / 577 100 / 100 Weight 154.2 kg Intake: IV 380 / 380 300 / 300 Azactam Inj 1,000 MG In NS Inj 90 / 90 100 ML @ 200 mls/hr IV.SIG Q8H [facility] Rx#:[id number] Zyvox 600 mg Premix 300 ML @ 290 / 290 300 / 300 300 mls/hr IV.SIG Q12H PABLO Rx#: [id number] Oral 0 / 0 Tube Feeding 318 / 318 527 / 527 Tube Irrigant 60 / 60 Water Bolus Amount 300 / 300 200 / 200 Free Water Amount 300 / 300 300 / 300 100 / 100 Output: Urine Amount (Catheter) 400 / 400 750 / 750 Female External 400 / 400 750 / 750 Other: Date of Last Bowel Movement 09/25/18 09/25/18 09/25/18 Narrative: Narrative: GENERAL: Awake and alert, trach collar in place SKIN: Warm and dry. HEENT: Atraumatic. Normocephalic. Pupils equal and round. EOMI. No scleral icterus. No injection or drainage. CARDIOVASCULAR: Regular rate and rhythm. No murmur appreciated. RESPIRATORY: Poor air movement but no increased work of breathing. Otherwise, clear to auscultation GASTROINTESTINAL: Abdomen soft, nondistended. Bowel sounds are present EXTREMITIES: Early venous stasis changes noted bilaterally. Bilateral 1+ pitting pre-tibial edema. - Urinary Catheter Management Female External Cath placed during this visit: no Straight Cath placed during this visit: yes, but has since been removed by the nurse Reason for continuing: Not indwelling catheter Insertion date: 09/20/18 Insertion time: 02:45 Removal date: 09/20/18 Removal time: 03:00 Indwelling Urethral Catheter Cath placed during this visit: yes, but has since been removed by the nurse Reason for continuing: Not indwelling catheter Removal date: 09/19/18 Removal time: 18:00 Results - Labs CBC & Chem 7: 09/26/18 07:16 09/26/18 07:16 Laboratory Results - last 24 hr 09/26/18 09/26/18 09/27/18 18:42 23:47 05:34 POC Glucose 104 118 H 87 09/27/18 13:08 POC Glucose 131 H - Imaging Impressions Chest X-Ray 09/27/18 06:00 CONCLUSION: 1. Elevation left hemidiaphragm with bibasilar densities. 2. Cardiomegaly. Assessment and Plan - Plan RESPIRATORY FAILURE COPD CHF RAD AFIB PLAN vent support bronchodilator therapy WEAN TOLERATED
--- NOTE | 2018-09-27 15:58 | P.PNCC ---
Subjective Subjective Remarks/Hospital Course: This is a 63-year-old female. Date of admission 09/14/2018. Date of consultation 09/15/2018. Past medical history includes paroxysmal atrial fibrillation currently normal sinus rhythm, elevated BMI, congestive heart failure with last documented ejection fraction 55% 2012, COPD, hypertension, left bundle branch block essential tremors. Patient originally planned to [place] on 09/14/2018 with worsening shortness of breath slowly on coming over the past couple weeks. She also noticed increasing bilateral lower extremity edema. Per documentation, patient recently saw her paraprofessional aide Dr. Silverman on Wednesday who asked her to drink as much fluid and juice as she possibly could and reduce her dose of Lasix from 20 mg twice a day to once a day. During current hospitalization, patient resume home medications of enalapril, furosemide, metoprolol and hydralazine. Patient seen by cardiology and pulmonology. Refusing to be from central sleep apnea. Currently on ipratropium aerosols every [address] House. Seen by Dr. Chew. Switch to sotalol 80 mg twice daily and diuresis furosemide 40 mg IV twice daily. This morning, patient was found obtunded. PH was 7.17. Retaining CO2. Transfer to ICU and intubated using 20 mg etomidate. 09/16: No acute distress on mechanical ventilation. Arousable but not following commands. Tolerating tube feeding. Decreased urine output. Will Place Coello catheter to monitor accurate I's and O's 09/17: Failed extubation yesterday after 20 minutes. Extremely anxious. Currently on low-dose dexmedetomidine drip and bradycardic. Tube feeds restarted. Urine output has increased. 09/18: Some hemoptysis overnight. Enoxaparin held. Currently on CPAP trials at 40%. Started on vancomycin and aztreonam for fevers. Arousable and follows commands 09/19: Patient failed trial of extubation again yesterday, required bronchoscopy due to bloody secretions from ETT but no active bleeding was seen. 09/20: General surgery consulted for tracheostomy, patient was agreeable when I spoke with her yesterday but her daughter was hesitant. Awaiting their decision. The patient's sputum cultures are positive for MRSA, will consult ID. The patient wrote on a piece of paper to me that she is having hallucinations from precedex. She is requesting that I discontinue this medication. 09/21: No overnight events. Patient became tachypneic and appeared anxious and distressed when I briefly attempted to switch her to spontaneous breathing trial , placed back on AC. Tentatively planned for tracheostomy tomorrow. 09/22: Awake and alert. Remains orally intubated on mechanical ventilation. Awaiting tracheostomy. 09/23: Awake and alert despite being on propofol. Gets anxious. Status post tracheostomy yesterday. Started CPAP trials. Tolerating tube feeds via NG tube 09/24: Tolerating SBT well today. PEEP of 8, 50% FiO2. We will attempt T-piece trials 09/25: No significant events overnight, continue T-piece trials daily 09/26: Currently on vent support/CPAP pressure support of 14. Awake alert following commands 09/27: Tolerating CPAP reduce pressure support. Attempt T piece today. Able to follow commands Objective Vital Signs / I&O: Vital Signs 09/26/18 16:00 09/26/18 16:01 09/26/18 16:20 Temperature Pulse Rate 71 70 67 Respiratory Rate 24 24 Blood Pressure 90/49 L Pulse Oximetry 79 L 79 L 09/26/18 17:00 09/26/18 18:00 09/26/18 18:01 Temperature Pulse Rate 85 72 72 Respiratory Rate 26 H 21 20 Blood Pressure 113/54 L Pulse Oximetry 83 L 81 L 09/26/18 18:53 09/26/18 19:00 09/26/18 19:01 Temperature Pulse Rate 67 76 76 Respiratory Rate 23 22 Blood Pressure 118/59 L Pulse Oximetry 80 L 76 L 09/26/18 19:20 09/26/18 20:00 09/26/18 20:01 Temperature Pulse Rate 77 71 71 Respiratory Rate 19 21 19 Blood Pressure 122/68 Pulse Oximetry 94 L 96 96 09/26/18 21:00 09/26/18 21:01 09/26/18 22:00 Temperature Pulse Rate 74 75 68 Respiratory Rate 21 19 20 Blood Pressure 110/59 L Pulse Oximetry 95 96 97 09/26/18 22:01 09/26/18 23:00 09/26/18 23:01 Temperature Pulse Rate 67 69 67 Respiratory Rate 20 20 19 Blood Pressure 107/54 L 121/59 L Pulse Oximetry 97 98 99 09/26/18 23:24 09/27/18 00:00 09/27/18 00:01 Temperature Pulse Rate 72 67 69 Respiratory Rate 22 22 20 Blood Pressure 116/67 Pulse Oximetry 97 97 09/27/18 00:49 09/27/18 01:00 09/27/18 01:01 Temperature Pulse Rate 67 66 Respiratory Rate 18 20 18 Blood Pressure 108/59 L Pulse Oximetry 97 97 97 09/27/18 02:00 09/27/18 02:01 09/27/18 03:00 Temperature Pulse Rate 70 69 69 Respiratory Rate 25 H 22 20 Blood Pressure 119/60 Pulse Oximetry 96 96 98 09/27/18 03:01 09/27/18 03:42 09/27/18 04:00 Temperature Pulse Rate 76 73 Respiratory Rate 24 22 22 Blood Pressure 144/60 H Pulse Oximetry 98 98 97 09/27/18 04:05 09/27/18 05:00 09/27/18 05:01 Temperature Pulse Rate 68 69 68 Respiratory Rate 17 19 19 Blood Pressure 133/61 129/63 Pulse Oximetry 97 97 96 09/27/18 06:00 09/27/18 06:01 09/27/18 07:00 Temperature Pulse Rate 69 69 70 Respiratory Rate 19 20 19 Blood Pressure 122/60 Pulse Oximetry 97 98 96 09/27/18 07:01 09/27/18 08:00 09/27/18 08:01 Temperature 98.2 F Pulse Rate 71 69 68 Respiratory Rate 21 19 20 Blood Pressure 116/55 L 106/56 L Pulse Oximetry 98 97 97 09/27/18 08:15 09/27/18 08:40 09/27/18 09:00 Temperature Pulse Rate 67 71 71 Respiratory Rate 16 27 H Blood Pressure Pulse Oximetry 97 97 09/27/18 09:01 09/27/18 10:00 09/27/18 10:01 Temperature Pulse Rate 71 70 70 Respiratory Rate 22 19 16 Blood Pressure 98/69 L 147/66 H Pulse Oximetry 98 96 97 09/27/18 10:09 09/27/18 11:00 09/27/18 11:01 Temperature Pulse Rate 74 68 68 Respiratory Rate 20 18 Blood Pressure 107/53 L Pulse Oximetry 88 L 09/27/18 11:29 09/27/18 12:00 09/27/18 12:01 Temperature Pulse Rate 61 60 60 Respiratory Rate 17 20 20 Blood Pressure 111/54 L Pulse Oximetry 98 09/27/18 12:04 09/27/18 14:00 09/27/18 15:06 Temperature Pulse Rate 60 63 63 Respiratory Rate 21 24 Blood Pressure Pulse Oximetry Intake & Output 09/26/18 09/27/18 09/27/18 18:59 06:59 18:59 Intake Total 1358 / 1358 1327 / 1327 100 / 100 Output Total 400 / 400 750 / 750 Balance 958 / 958 577 / 577 100 / 100 Weight 154.2 kg Intake: IV 380 / 380 300 / 300 Azactam Inj 1,000 MG In NS Inj 90 / 90 100 ML @ 200 mls/hr IV.SIG Q8H [facility] Rx#:[id number] Zyvox 600 mg Premix 300 ML @ 290 / 290 300 / 300 300 mls/hr IV.SIG Q12H [facility] Rx#: [id number] Oral 0 / 0 Tube Feeding 318 / 318 527 / 527 Tube Irrigant 60 / 60 Water Bolus Amount 300 / 300 200 / 200 Free Water Amount 300 / 300 300 / 300 100 / 100 Output: Urine Amount (Catheter) 400 / 400 750 / 750 Female External 400 / 400 750 / 750 Other: Date of Last Bowel Movement 09/25/18 09/25/18 09/25/18 Result Diagrams: 09/26/18 07:16 09/26/18 07:16 Objective Remarks: GENERAL: awake and alert SKIN: No rashes or lesions HEAD: NCAT EYES: PERRL ENT: Mucous membranes pink and moist. NECK: Tracheostomy in place CARDIOVASCULAR: Regular rate and rhythm RESPIRATORY: Diminished breath sounds due to body habitus, secretions thick but not bloody GASTROINTESTINAL: Abdomen soft, non-tender, obese MUSCULOSKELETAL: Trace nonpitting bilateral lower extremity edema NEUROLOGICAL: RASS 0, awake and alert, nods/ shakes head appropriately to yes/ no questions Assessment and Plan - Assessment and Plan Plan: 63yF presenting with acute hypoxic respiratory failure and failed attempt at extubation x 2 Neuro/Psych: Anxiety disorder Chronic benzodiazepine use PRN ativan for breakthrough anxiety Acetaminophen allergy documented CV: Paroxysmal atrial fibrillation currently normal sinus rhythm Congestive heart failure unknown etiology. Last echocardiogram EF 50-55% Elevated HDL Sotalol 80 mg twice daily started by cardiology several days ago, hold home dose of metoprolol/ hydralazine Currently holding enalapril 20 mg daily in light of hypotension and acute kidney injury Echocardiogram: 09/06/12 - ejection fraction of 50-55% with normal wall motion Myocardial perfusion scan: 09/07/12 - slight ischemia in the LAD distribution with an ejection fraction of 60 Diurese as detailed below Resp: Acute respiratory failure with CO2 retention Obstructive sleep apnea -untreated Previous diagnosis of COPD Obesity hypoventilation syndrome Hemoptysis Bronchoscopy(09/19) with atypical cells on cell block suspicious for squamous cell carcinoma Last PFT showed mild restrictive lung disease. No obstructive component Followed by pulmonology. Currently ipratropium aerosols every 4 hours scheduled Pharmacologic prophylaxis held due to hemoptysis, no source of bleeding noted on bronch 09/18. Resumed DVT prophylaxis Tracheostomy done on 09/22 -Dr. House following for pulmonary-to decide further management for suspicious squamous cell carcinoma on bronchoscopy cell block specimen Continue to attempt to wean to trach collar's daily GI: Gastroesophageal reflux disease Tube feeds- vital high-protein at 65 cc an hour. Will require PEG tube placement Famotidine for GI prophylaxis Docusate sodium/senna 1 tablet twice daily for bowel regimen : No indication for Coello Endo: Acute hyperglycemia Sliding scale insulin Accu-Cheks to maintain euglycemia aspart insulin every 6 hours, better controlled on medium algorithm Renal: Acute kidney injury - improving CHAPIS inhibitor discontinued due to KIKE, still on hold as BP is 100s-110s systolic Accurate I's and O's Renal ultrasound only remarkable for incidental renal cyst; urine eosinophils, sodium and creatinine unremarkable Heme: Leukocytosis Normocytic anemia Suspicious squamous cell carcinoma on cell block of bronchoscopy specimen No indication for transfusion of blood products at this time. Monitor CBC daily. Hemoptysis appears to have stopped at this point. Oncology consult for further evaluation of abnormal biopsy from bronchoscopy suspicious for squamous cell carcinoma. ID: 09/15 sputum negative for influenza A and B No growth to date blood cultures x2 09/17 09/18 sputum culture positive for MRSA Empirically started on vancomycin and aztreonam for MRSA pneumonia, 09/18 * ID consulted(Dr. Archuleta), vanco discontinued and patient was started on Zyvox. D/C aztreonam? Infectious disease consultation appreciated FEN: Hypernatremia Replace electrolytes as clinically indicated per ICU electrolyte protocol Continue free water flushes MSK: Elevated BMI Chronic low back pain Weight loss encouraged PT evaluate and treat when extubated Access -Utilize peripheral IV DVT GI prophylaxis -GI -famotidine -DVT -SCD/enoxaparin currently on hold due to hemoptysis and planned procedures. Will restart Lovenox Discussed with family preservation caseworker, discussed with ID, discussed with ORIENTATION AND MOBILITY SPECIALIST. Level 2 Okay to transfer to LTAC when bed available
[2018-09-28] MEDS: Insulin NovoLOG Aspart Correctional Sugar Inj SQ SCH ×3 (00:45→13:24)
[2018-09-28] MEDS: Oral Hygiene Kit OROPHARYNG SCH ×3 (00:46→13:24)
[2018-09-28] MEDS: Artificial Tears Opth Drops 15 ML Bottle EACH EYE SCH ×2 (01:32→13:24)
[2018-09-28 07:08] LABS: Hematocrit 26.5 % (35.0-46.0); Hemoglobin 8.6 gm/dL (11.6-15.3); Mean Corpuscular HGB Conc 32.6 % (32.0-36.0); Mean Corpuscular Hemoglobin 27.6 pg (27.0-34.0); Mean Corpuscular Volume 84.6 fL (80.0-100.0); Mean Platelet Volume 7.1 fL (7.0-11.0); Platelet Count 363 th/mm3 (150-450); Red Blood Count 3.13 mil/mm3 (4.00-5.30); Red Cell Distribution Width 16.1 % (11.6-17.2); White Blood Count 6.6 th/mm3 (4.0-11.0)
[2018-09-28 07:34] LABS: Anion Gap 4 meq/L (5-15); Blood Urea Nitrogen 6 mg/dL (7-18); Calcium 8.3 mg/dL (8.5-10.1); Carbon Dioxide 32.3 meq/L (21.0-32.0); Chloride 107 meq/L (98-107); Glomerular Filtration Rate Greater Than 89 mL/min (>89); Glucose,Random 117 mg/dL (74-106); Phosphorus 2.4 mg/dL (2.5-4.9); Sodium 143 meq/L (136-145)
--- NOTE | 2018-09-28 08:47 | P.PN ---
Physical Exam Vital signs: Vital Signs 09/27/18 09:00 09/27/18 09:01 09/27/18 10:00 Pulse Rate 71 71 70 Respiratory Rate 27 H 22 19 Blood Pressure 98/69 L Pulse Oximetry 97 98 96 09/27/18 10:01 09/27/18 10:09 09/27/18 11:00 Pulse Rate 70 74 68 Respiratory Rate 16 20 Blood Pressure 147/66 H Pulse Oximetry 97 09/27/18 11:01 09/27/18 11:29 09/27/18 12:00 Pulse Rate 68 61 60 Respiratory Rate 18 17 20 Blood Pressure 107/53 L Pulse Oximetry 88 L 98 09/27/18 12:01 09/27/18 12:04 09/27/18 13:00 Pulse Rate 60 60 61 Respiratory Rate 20 21 19 Blood Pressure 111/54 L Pulse Oximetry 09/27/18 13:01 09/27/18 14:00 09/27/18 15:00 Pulse Rate 60 67 63 Respiratory Rate 19 18 21 Blood Pressure 93/55 L 108/58 L Pulse Oximetry 97 96 09/27/18 15:01 09/27/18 15:06 09/27/18 16:00 Pulse Rate 63 63 65 Respiratory Rate 18 24 22 Blood Pressure 96/51 L Pulse Oximetry 96 96 09/27/18 16:01 09/27/18 16:33 09/27/18 16:40 Pulse Rate 65 94 H Respiratory Rate 20 Blood Pressure 109/56 L Pulse Oximetry 96 96 09/27/18 17:00 09/27/18 17:01 09/27/18 18:00 Pulse Rate 80 80 80 Respiratory Rate 23 22 24 Blood Pressure 122/64 Pulse Oximetry 95 95 96 09/27/18 18:01 09/27/18 19:00 09/27/18 19:01 Pulse Rate 80 72 74 Respiratory Rate 23 21 27 H Blood Pressure 119/58 L 123/65 Pulse Oximetry 96 96 95 09/27/18 19:55 09/27/18 20:00 09/27/18 20:01 Pulse Rate 72 75 72 Respiratory Rate 23 24 23 Blood Pressure 126/58 L Pulse Oximetry 99 93 L 94 L 09/27/18 21:00 09/27/18 21:01 09/27/18 22:00 Pulse Rate 74 74 66 Respiratory Rate 21 18 21 Blood Pressure 119/77 Pulse Oximetry 98 98 94 L 09/27/18 22:01 09/27/18 23:00 09/27/18 23:01 Pulse Rate 68 64 64 Respiratory Rate 24 18 18 Blood Pressure 119/71 99/58 L Pulse Oximetry 98 100 100 09/28/18 00:00 09/28/18 01:00 09/28/18 01:01 Pulse Rate 65 62 62 Respiratory Rate 18 17 17 Blood Pressure 105/70 96/52 L Pulse Oximetry 97 98 98 09/28/18 01:14 09/28/18 02:00 09/28/18 02:01 Pulse Rate 67 67 Respiratory Rate 17 23 23 Blood Pressure 103/63 Pulse Oximetry 98 90 L 93 L 09/28/18 03:00 09/28/18 03:01 09/28/18 03:55 Pulse Rate 67 67 Respiratory Rate 23 22 18 Blood Pressure 110/67 Pulse Oximetry 97 97 97 09/28/18 04:00 09/28/18 04:01 09/28/18 06:00 Pulse Rate 69 68 69 Respiratory Rate 20 19 Blood Pressure 128/62 Pulse Oximetry 97 97 09/28/18 07:00 09/28/18 08:00 Pulse Rate 72 Respiratory Rate 18 19 Blood Pressure Pulse Oximetry 98 Intake & Output 09/27/18 09/28/18 09/28/18 18:59 06:59 18:59 Intake Total 1065 / 1065 1629 / 1629 Output Total 600 / 600 700 / 700 Balance 465 / 465 929 / 929 Weight 154.5 kg Intake: IV 300 / 300 Zyvox 600 mg Premix 300 ML @ 300 / 300 300 mls/hr IV.SIG Q12H [facility] Rx#: [id number] Tube Feeding 505 / 505 629 / 629 Tube Irrigant 60 / 60 Water Bolus Amount 300 / 300 300 / 300 Free Water Amount 200 / 200 400 / 400 Output: Urine Amount (Catheter) 600 / 600 700 / 700 Female External 600 / 600 700 / 700 Other: Date of Last Bowel Movement 09/25/18 09/25/18 - Urinary Catheter Management Female External Cath placed during this visit: no Straight Cath placed during this visit: yes, but has since been removed by the nurse Reason for continuing: Not indwelling catheter Insertion date: 09/20/18 Insertion time: 02:45 Removal date: 09/20/18 Removal time: 03:00 Indwelling Urethral Catheter Cath placed during this visit: yes, but has since been removed by the nurse Reason for continuing: Not indwelling catheter Removal date: 09/19/18 Removal time: 18:00 Results - Labs CBC & Chem 7: 09/28/18 05:23 09/28/18 05:23 Laboratory Results - last 24 hr 09/27/18 09/27/18 09/27/18 13:08 17:31 23:53 WBC RBC Hgb Hct MCV MCH MCHC RDW Plt Count MPV Sodium Potassium Chloride Carbon Dioxide Anion Gap BUN Creatinine Estimated GFR POC Glucose 131 H 145 H 132 H Random Glucose Calcium Phosphorus 09/28/18 09/28/18 09/28/18 05:23 05:23 05:53 WBC 6.6 RBC 3.13 L Hgb 8.6 L Hct 26.5 L MCV 84.6 MCH 27.6 MCHC 32.6 RDW 16.1 Plt Count 363 MPV 7.1 Sodium 143 Potassium 4.0 Chloride 107 Carbon Dioxide 32.3 H Anion Gap 4 L BUN 6 L Creatinine 0.63 Estimated GFR Greater than 89 POC Glucose 123 H Random Glucose 117 H Calcium 8.3 L Phosphorus 2.4 L Assessment and Plan - Assessment (1) Acute respiratory failure Code(s): J96.00 - Acute respiratory failure, unspecified whether with hypoxia or hypercapnia Status: Acute (2) MRSA pneumonia Code(s): J15.212 - Pneumonia due to Methicillin resistant Staphylococcus aureus Status: Acute (3) Heart failure with preserved ejection fraction Code(s): I50.30 - Unspecified diastolic (congestive) heart failure Status: Acute (4) RAD (obstructive sleep apnea) Code(s): G47.33 - Obstructive sleep apnea (adult) (pediatric) Status: Acute (5) Hypertension Code(s): I10 - Essential (primary) hypertension Status: Acute (6) COPD (chronic obstructive pulmonary disease) Code(s): J44.9 - Chronic obstructive pulmonary disease, unspecified Status: Acute (7) GERD (gastroesophageal reflux disease) Code(s): K21.9 - Gastro-esophageal reflux disease without esophagitis Status: Acute (8) Afib Code(s): I48.91 - Unspecified atrial fibrillation Status: Acute (9) Anxiety Code(s): F41.9 - Anxiety disorder, unspecified Status: Acute (10) Tremors of nervous system Code(s): R25.1 - Tremor, unspecified Status: Acute (11) Chronic back pain Code(s): M54.9 - Dorsalgia, unspecified; G89.29 - Other chronic pain Status: Acute (12) Anemia Code(s): D64.9 - Anemia, unspecified Status: Acute (13) Abnormal cytology Code(s): R89.6 - Abnormal cytological findings in specimens from other organs, systems and tissues Status: Acute
--- NOTE | 2018-09-28 09:00 | P.PN ---
Subjective Interval history: ALERT ON VENT Physical Exam Vital signs: Vital Signs 09/27/18 09:00 09/27/18 09:01 09/27/18 10:00 Pulse Rate 71 71 70 Respiratory Rate 27 H 22 19 Blood Pressure 98/69 L Pulse Oximetry 97 98 96 09/27/18 10:01 09/27/18 10:09 09/27/18 11:00 Pulse Rate 70 74 68 Respiratory Rate 16 20 Blood Pressure 147/66 H Pulse Oximetry 97 09/27/18 11:01 09/27/18 11:29 09/27/18 12:00 Pulse Rate 68 61 60 Respiratory Rate 18 17 20 Blood Pressure 107/53 L Pulse Oximetry 88 L 98 09/27/18 12:01 09/27/18 12:04 09/27/18 13:00 Pulse Rate 60 60 61 Respiratory Rate 20 21 19 Blood Pressure 111/54 L Pulse Oximetry 09/27/18 13:01 09/27/18 14:00 09/27/18 15:00 Pulse Rate 60 67 63 Respiratory Rate 19 18 21 Blood Pressure 93/55 L 108/58 L Pulse Oximetry 97 96 09/27/18 15:01 09/27/18 15:06 09/27/18 16:00 Pulse Rate 63 63 65 Respiratory Rate 18 24 22 Blood Pressure 96/51 L Pulse Oximetry 96 96 09/27/18 16:01 09/27/18 16:33 09/27/18 16:40 Pulse Rate 65 94 H Respiratory Rate 20 Blood Pressure 109/56 L Pulse Oximetry 96 96 09/27/18 17:00 09/27/18 17:01 09/27/18 18:00 Pulse Rate 80 80 80 Respiratory Rate 23 22 24 Blood Pressure 122/64 Pulse Oximetry 95 95 96 09/27/18 18:01 09/27/18 19:00 09/27/18 19:01 Pulse Rate 80 72 74 Respiratory Rate 23 21 27 H Blood Pressure 119/58 L 123/65 Pulse Oximetry 96 96 95 09/27/18 19:55 09/27/18 20:00 09/27/18 20:01 Pulse Rate 72 75 72 Respiratory Rate 23 24 23 Blood Pressure 126/58 L Pulse Oximetry 99 93 L 94 L 09/27/18 21:00 09/27/18 21:01 09/27/18 22:00 Pulse Rate 74 74 66 Respiratory Rate 21 18 21 Blood Pressure 119/77 Pulse Oximetry 98 98 94 L 09/27/18 22:01 09/27/18 23:00 09/27/18 23:01 Pulse Rate 68 64 64 Respiratory Rate 24 18 18 Blood Pressure 119/71 99/58 L Pulse Oximetry 98 100 100 09/28/18 00:00 09/28/18 01:00 09/28/18 01:01 Pulse Rate 65 62 62 Respiratory Rate 18 17 17 Blood Pressure 105/70 96/52 L Pulse Oximetry 97 98 98 09/28/18 01:14 09/28/18 02:00 09/28/18 02:01 Pulse Rate 67 67 Respiratory Rate 17 23 23 Blood Pressure 103/63 Pulse Oximetry 98 90 L 93 L 09/28/18 03:00 09/28/18 03:01 09/28/18 03:55 Pulse Rate 67 67 Respiratory Rate 23 22 18 Blood Pressure 110/67 Pulse Oximetry 97 97 97 09/28/18 04:00 09/28/18 04:01 09/28/18 06:00 Pulse Rate 69 68 69 Respiratory Rate 20 19 Blood Pressure 128/62 Pulse Oximetry 97 97 09/28/18 07:00 09/28/18 08:00 Pulse Rate 72 Respiratory Rate 18 19 Blood Pressure Pulse Oximetry 98 Intake & Output 09/27/18 09/28/18 09/28/18 18:59 06:59 18:59 Intake Total 1065 / 1065 1629 / 1629 Output Total 600 / 600 700 / 700 Balance 465 / 465 929 / 929 Weight 154.5 kg Intake: IV 300 / 300 Zyvox 600 mg Premix 300 ML @ 300 / 300 300 mls/hr IV.SIG Q12H [facility] Rx#: [id number] Tube Feeding 505 / 505 629 / 629 Tube Irrigant 60 / 60 Water Bolus Amount 300 / 300 300 / 300 Free Water Amount 200 / 200 400 / 400 Output: Urine Amount (Catheter) 600 / 600 700 / 700 Female External 600 / 600 700 / 700 Other: Date of Last Bowel Movement 09/25/18 09/25/18 Narrative: Narrative: GENERAL: Awake and alert, trach collar in place SKIN: Warm and dry. HEENT: Atraumatic. Normocephalic. Pupils equal and round. EOMI. No scleral icterus. No injection or drainage. CARDIOVASCULAR: Regular rate and rhythm. No murmur appreciated. RESPIRATORY: Poor air movement but no increased work of breathing. Otherwise, clear to auscultation GASTROINTESTINAL: Abdomen soft, nondistended. Bowel sounds are present EXTREMITIES: Early venous stasis changes noted bilaterally. Bilateral 1+ pitting pre-tibial edema. - Urinary Catheter Management Female External Cath placed during this visit: no Straight Cath placed during this visit: yes, but has since been removed by the nurse Reason for continuing: Not indwelling catheter Insertion date: 09/20/18 Insertion time: 02:45 Removal date: 09/20/18 Removal time: 03:00 Indwelling Urethral Catheter Cath placed during this visit: yes, but has since been removed by the nurse Reason for continuing: Not indwelling catheter Removal date: 09/19/18 Removal time: 18:00 Results - Labs CBC & Chem 7: 09/28/18 05:23 09/28/18 05:23 Laboratory Results - last 24 hr 09/27/18 09/27/18 09/27/18 13:08 17:31 23:53 WBC RBC Hgb Hct MCV MCH MCHC RDW Plt Count MPV Sodium Potassium Chloride Carbon Dioxide Anion Gap BUN Creatinine Estimated GFR POC Glucose 131 H 145 H 132 H Random Glucose Calcium Phosphorus 09/28/18 09/28/18 09/28/18 05:23 05:23 05:53 WBC 6.6 RBC 3.13 L Hgb 8.6 L Hct 26.5 L MCV 84.6 MCH 27.6 MCHC 32.6 RDW 16.1 Plt Count 363 MPV 7.1 Sodium 143 Potassium 4.0 Chloride 107 Carbon Dioxide 32.3 H Anion Gap 4 L BUN 6 L Creatinine 0.63 Estimated GFR Greater than 89 POC Glucose 123 H Random Glucose 117 H Calcium 8.3 L Phosphorus 2.4 L Assessment and Plan - Plan RESPIRATORY FAILURE COPD CHF RAD AFIB PLAN vent support bronchodilator therapy [employer]
[2018-09-28] MEDS: Senna/Docusate Sodium 8.6/50 MG Tablet PO SCH (09:04)
[2018-09-28] MEDS: hydrALAZINE 10 MG Tablet PO SCH (09:04)
[2018-09-28] MEDS: LORazepam 0.5 MG Tablet NG/OG PRN (09:04)
[2018-09-28] MEDS: Chlorhexidine 0.12% Oral Kit 15 ML UDC OROPHARYNG SCH (09:04)
[2018-09-28] MEDS: Simethicone 125 MG Chew Tablet PO SCH (09:04)
[2018-09-28] MEDS: Famotidine PF Inj 20 MG/2 ML Vial IV.PUSH SCH (09:05)
[2018-09-28] MEDS: QUEtiapine 100 MG Tablet PO SCH (09:05)
[2018-09-28] MEDS: Nystatin 100,000 UNITS/GM Powder 15 GM Bottle TOPICAL SCH (09:05)
--- NOTE | 2018-09-28 09:30 | P.PNFP ---
Subjective Interval history: Patient is doing better this morning. She asked if she could sit up in a chair so she can breathe better and be able to communicate better with her daughter. She tolerated a T-piece trial for 2 hours on the previous day and is only on CPAP now. <Eko Soha Giraldo - 09/28/18 09:36> Results - Labs Result diagrams: 09/28/18 05:23 09/28/18 05:23 <ClayFilomena Silvestre - 09/29/18 12:28> Abnormal lab results 09/27/18 09/27/18 09/27/18 Range/Units 13:08 17:31 23:53 RBC (4.00-5.30) mil/mm3 Hgb (11.6-15.3) gm/dL Hct (35.0-46.0) % Carbon Dioxide (21.0-32.0) meq/L Anion Gap (5-15) meq/L BUN (7-18) mg/dL POC Glucose 131 H 145 H 132 H (68-110) mg/dl Random Glucose (74-106) mg/dL Calcium (8.5-10.1) mg/dL Phosphorus (2.5-4.9) mg/dL 09/28/18 09/28/18 09/28/18 Range/Units 05:23 05:23 05:53 RBC 3.13 L (4.00-5.30) mil/mm3 Hgb 8.6 L (11.6-15.3) gm/dL Hct 26.5 L (35.0-46.0) % Carbon Dioxide 32.3 H (21.0-32.0) meq/L Anion Gap 4 L (5-15) meq/L BUN 6 L (7-18) mg/dL POC Glucose 123 H (68-110) mg/dl Random Glucose 117 H (74-106) mg/dL Calcium 8.3 L (8.5-10.1) mg/dL Phosphorus 2.4 L (2.5-4.9) mg/dL Short CBC 09/28/18 Range/Units 05:23 WBC 6.6 (4.0-11.0) th/mm3 Hgb 8.6 L (11.6-15.3) gm/dL Hct 26.5 L (35.0-46.0) % Plt Count 363 (150-450) th/mm3 BMP 09/28/18 05:23 Sodium 143 Potassium 4.0 Chloride 107 Carbon Dioxide 32.3 H BUN 6 L Creatinine 0.63 Calcium 8.3 L <Eko Soha Giraldo U - 09/28/18 09:30> Physical Exam Vital signs: Vital Signs 09/28/18 12:57 Respiratory Rate 19 Pulse Oximetry 96 Intake & Output 09/28/18 09/29/18 09/29/18 18:59 06:59 18:59 Intake Total 100 / 100 Balance 100 / 100 Intake: Free Water Amount 100 / 100 Other: Date of Last Bowel Movement 09/25/18 <Lj Williamsonon M - 09/29/18 12:28> Vital Signs 09/27/18 10:00 09/27/18 10:01 09/27/18 10:09 Pulse Rate 70 70 74 Respiratory Rate 19 16 Blood Pressure 147/66 H Pulse Oximetry 96 97 09/27/18 11:00 09/27/18 11:01 09/27/18 11:29 Pulse Rate 68 68 61 Respiratory Rate 20 18 17 Blood Pressure 107/53 L Pulse Oximetry 88 L 98 09/27/18 12:00 09/27/18 12:01 09/27/18 12:04 Pulse Rate 60 60 60 Respiratory Rate 20 20 21 Blood Pressure 111/54 L Pulse Oximetry 09/27/18 13:00 09/27/18 13:01 09/27/18 14:00 Pulse Rate 61 60 67 Respiratory Rate 19 19 18 Blood Pressure 93/55 L 108/58 L Pulse Oximetry 97 09/27/18 15:00 09/27/18 15:01 09/27/18 15:06 Pulse Rate 63 63 63 Respiratory Rate 21 18 24 Blood Pressure 96/51 L Pulse Oximetry 96 96 09/27/18 16:00 09/27/18 16:01 09/27/18 16:33 Pulse Rate 65 65 94 H Respiratory Rate 22 20 Blood Pressure 109/56 L Pulse Oximetry 96 96 09/27/18 16:40 09/27/18 17:00 09/27/18 17:01 Pulse Rate 80 80 Respiratory Rate 23 22 Blood Pressure 122/64 Pulse Oximetry 96 95 95 09/27/18 18:00 09/27/18 18:01 09/27/18 19:00 Pulse Rate 80 80 72 Respiratory Rate 24 23 21 Blood Pressure 119/58 L Pulse Oximetry 96 96 96 09/27/18 19:01 09/27/18 19:55 09/27/18 20:00 Pulse Rate 74 72 75 Respiratory Rate 27 H 23 24 Blood Pressure 123/65 Pulse Oximetry 95 99 93 L 09/27/18 20:01 09/27/18 21:00 09/27/18 21:01 Pulse Rate 72 74 74 Respiratory Rate 23 21 18 Blood Pressure 126/58 L 119/77 Pulse Oximetry 94 L 98 98 09/27/18 22:00 09/27/18 22:01 09/27/18 23:00 Pulse Rate 66 68 64 Respiratory Rate 21 24 18 Blood Pressure 119/71 Pulse Oximetry 94 L 98 100 09/27/18 23:01 09/28/18 00:00 09/28/18 01:00 Pulse Rate 64 65 62 Respiratory Rate 18 18 17 Blood Pressure 99/58 L 105/70 Pulse Oximetry 100 97 98 09/28/18 01:01 09/28/18 01:14 09/28/18 02:00 Pulse Rate 62 67 Respiratory Rate 17 17 23 Blood Pressure 96/52 L Pulse Oximetry 98 98 90 L 09/28/18 02:01 09/28/18 03:00 09/28/18 03:01 Pulse Rate 67 67 67 Respiratory Rate 23 23 22 Blood Pressure 103/63 110/67 Pulse Oximetry 93 L 97 97 09/28/18 03:55 09/28/18 04:00 09/28/18 04:01 Pulse Rate 69 68 Respiratory Rate 18 20 19 Blood Pressure 128/62 Pulse Oximetry 97 97 97 09/28/18 06:00 09/28/18 07:00 09/28/18 08:00 Pulse Rate 69 72 Respiratory Rate 18 19 Blood Pressure Pulse Oximetry 98 Intake & Output 09/27/18 09/28/18 09/28/18 18:59 06:59 18:59 Intake Total 1065 / 1065 1929 / 1929 100 / 100 Output Total 600 / 600 700 / 700 Balance 465 / 465 1229 / 1229 100 / 100 Weight 154.5 kg Intake: IV 600 / 600 Zyvox 600 mg Premix 300 ML @ 600 / 600 300 mls/hr IV.SIG Q12H [facility] Rx#: [id number] Tube Feeding 505 / 505 629 / 629 Tube Irrigant 60 / 60 Water Bolus Amount 300 / 300 300 / 300 Free Water Amount 200 / 200 400 / 400 100 / 100 Output: Urine Amount (Catheter) 600 / 600 700 / 700 Female External 600 / 600 700 / 700 Other: Date of Last Bowel Movement 09/25/18 09/25/18 <EkSoha Cuello - 09/28/18 09:30> Narrative: Narrative: GENERAL: Awake and alert, trach collar in place SKIN: Warm and dry. HEENT: Atraumatic. Normocephalic. Pupils equal and round. EOMI. No scleral icterus. No injection or drainage. CARDIOVASCULAR: Regular rate and rhythm. No murmur appreciated. RESPIRATORY: Improved air movement, no increased work of breathing. Otherwise, clear to auscultation GASTROINTESTINAL: Abdomen soft, nondistended. Bowel sounds are present EXTREMITIES: Early venous stasis changes noted bilaterally. Bilateral 1+ pitting pre-tibial edema. <Eko Soha Giraldo 09/28/18 09:36> - Urinary Catheter Management Female External Cath placed during this visit: no <Filomena Williamson 09/29/18 12:28> no <Fredo Soha Giraldo 09/28/18 09:36> Indwelling Urethral Catheter Cath placed during this visit: no <ClayFilomena 09/29/18 12:28> yes, but has since been removed by the nurse <Soha Potter 09/28/18 09:36> Reason for continuing: Not indwelling catheter <Eko Soha Giraldo 09/28/18 09 :30> Removal date: 09/19/18 <Eko Soha Giraldo [facility] 09/28/18 09:30> Removal time: 18:00 <Eko R3Soha 09/28/18 09:30> Straight Cath placed during this visit: no <ClayFilomena 09/29/18 12:28> yes, but has since been removed by the nurse <Fredo Soha Giraldo 09/28/18 09:36> Reason for continuing: Not indwelling catheter <Eko Soha Giraldo 09/28/18 09 :30> Insertion date: 09/20/18 <Eko R3Soha U - 09/28/18 09:30> Insertion time: 02:45 <Eko R3,Soha U - 09/28/18 09:30> Removal date: 09/20/18 <Eko R3,Soha U - 09/28/18 09:30> Removal time: 03:00 <Eko R3Soha U - 09/28/18 09:30> Assessment and Plan - Assessment (1) Acute respiratory failure Code(s): J96.00 - Acute respiratory failure, unspecified whether with hypoxia or hypercapnia Status: Acute (2) MRSA pneumonia Code(s): J15.212 - Pneumonia due to Methicillin resistant Staphylococcus aureus Status: Acute (3) Heart failure with preserved ejection fraction Code(s): I50.30 - Unspecified diastolic (congestive) heart failure Status: Acute (4) RAD (obstructive sleep apnea) Code(s): G47.33 - Obstructive sleep apnea (adult) (pediatric) Status: Acute (5) Hypertension Code(s): I10 - Essential (primary) hypertension Status: Acute (6) COPD (chronic obstructive pulmonary disease) Code(s): J44.9 - Chronic obstructive pulmonary disease, unspecified Status: Acute (7) GERD (gastroesophageal reflux disease) Code(s): K21.9 - Gastro-esophageal reflux disease without esophagitis Status: Acute (8) Afib Code(s): I48.91 - Unspecified atrial fibrillation Status: Acute (9) Anxiety Code(s): F41.9 - Anxiety disorder, unspecified Status: Acute (10) Tremors of nervous system Code(s): R25.1 - Tremor, unspecified Status: Acute (11) Chronic back pain Code(s): M54.9 - Dorsalgia, unspecified; G89.29 - Other chronic pain Status: Acute (12) Anemia Code(s): D64.9 - Anemia, unspecified Status: Acute (13) Abnormal cytology Code(s): R89.6 - Abnormal cytological findings in specimens from other organs, systems and tissues Status: Acute <ClayFilomena M - 09/29/18 12:28> (1) Acute respiratory failure Code(s): J96.00 - Acute respiratory failure, unspecified whether with hypoxia or hypercapnia Status: Acute (2) MRSA pneumonia Code(s): J15.212 - Pneumonia due to Methicillin resistant Staphylococcus aureus Status: Acute (3) Heart failure with preserved ejection fraction Code(s): I50.30 - Unspecified diastolic (congestive) heart failure Status: Acute (4) RAD (obstructive sleep apnea) Code(s): G47.33 - Obstructive sleep apnea (adult) (pediatric) Status: Acute (5) Hypertension Code(s): I10 - Essential (primary) hypertension Status: Acute (6) COPD (chronic obstructive pulmonary disease) Code(s): J44.9 - Chronic obstructive pulmonary disease, unspecified Status: Acute (7) GERD (gastroesophageal reflux disease) Code(s): K21.9 - Gastro-esophageal reflux disease without esophagitis Status: Acute (8) Afib Code(s): I48.91 - Unspecified atrial fibrillation Status: Acute (9) Anxiety Code(s): F41.9 - Anxiety disorder, unspecified Status: Acute (10) Tremors of nervous system Code(s): R25.1 - Tremor, unspecified Status: Acute (11) Chronic back pain Code(s): M54.9 - Dorsalgia, unspecified; G89.29 - Other chronic pain Status: Acute (12) Anemia Code(s): D64.9 - Anemia, unspecified Status: Acute (13) Abnormal cytology Code(s): R89.6 - Abnormal cytological findings in specimens from other organs, systems and tissues Status: Acute <Eko R3,Soha U - 09/28/18 09:30> - Assessment and Plan 63-year-old female presented with shortness of breath presumed to be due to CHFpEF but likely related to her chronic obstructive sleep apnea. The patient was noted to be obtunded 09/15 with acute respiratory failure and marked CO2 retention requiring emergent intubation with mechanical ventilation. On 09/18, bronchoscopy was performed with removal of copious amounts of mucus mixed with bright red blood from both bronchi. She was also started on vancomycin and aztreonam due to fevers. Bronchial washings and sputum grew MRSA - ID consulted on 09/20/2018 - switched to Linezolid and aztreonam and now improved. Tracheostomy tube was placed on 09/22/18. Right middle lobe bronchial washings from 09/20/2018 is suspicious for squamous cell carcinoma. Oncology consulted and stated that pt is not a candidate for any further intervention at this time due to her respiratory status. Currently undergoing CPAP and T-piece trials. Acute hypercarbic respiratory failure -Tracheostomy tube in place -Continuing CPAP and T-piece trials -No pressors -Critical care assisting with management -Will reconsult PT to increase mobility Obstructive sleep apnea with obesity hypoventilation syndrome -Last PFT showed mild restrictive lung disease -Trach, CPAP, and T-piece trials as above -Pulmonology on board. Patient known to Dr. 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 Holcomb * Not sure of diagnosis, no solid mass seen on CT * At this time, she is not a candidate for any further investigation before treatment options are even considered * If her current status improves, she could possible undergo further testing in [address] scan and bronchoscopy -Palliative care on board Heart Failure with Preserved Ejection Fraction -Echocardiogram: 09/06/12 - ejection fraction of 50-55% with normal wall motion -Monitor strict I/O's -Continue Furosemide AFIB -Stable -Continue home sotalol if BP can tolerate Hypertension -Monitor vital signs -Continue home BP medications if BP can tolerate COPD -The patient carries a diagnosis of COPD per chart review -Possible heavy secondhand smoke exposure or symptoms all stemming from RAD -Spiriva nebulizer 0.5 mg q4h scheduled - she reports allergy to albuterol Anemia -Chronic anemia -Currently stable, continue to monitor CBC daily -Transfuse as needed Anxiety -Continue home lorazepam 1 mg p.o. twice daily prn GERD -On Famotidine for ppx Chronic back pain/arthritis -PT evaluate and treat while in the hospital on T-piece FEN/ppx F: Free water flushes E: On ICU electrolyte replacement protocol N: RD recommends Jevity 1.5 @ 55mL/hr to provide 1980kcal, 84g of protein, and 1003mL of free water to best meet pt's updated needs -DVT ppx: Lovenox held due to hemoptysis, SCDs in place -GI ppx: Famotidine, Senna/Docusate <[facility] - 09/28/18 09:36> Discharge Planning: Case management is working on transferring her [facility] <[facility] 09/28/18 09:36> - Attending Attestation The exam, history, and the medical decision-making described in the above note were completed with the assistance of the resident physician. I reviewed and agree with the findings presented. I attest that I had a [id number] encounter with the patient on the same day, and personally performed and documented my assessment and findings in the medical record. she is ready to leave the hospital and start PT at [facility] <Filomena Williamson - 09/29/18 12:28>
--- NOTE | 2018-09-28 12:06 | P.PNCC ---
Subjective Subjective Remarks/Hospital Course: This is a 63-year-old female. Date of admission 09/14/2018. Date of consultation 09/15/2018. Past medical history includes paroxysmal atrial fibrillation currently normal sinus rhythm, elevated BMI, congestive heart failure with last documented ejection fraction 55% 2012, COPD, hypertension, left bundle branch block essential tremors. Patient originally planned to [place] on 09/14/2018 with worsening shortness of breath slowly on coming over the past couple weeks. She also noticed increasing bilateral lower extremity edema. Per documentation, patient recently saw her finish production manager Dr. Silverman on Wednesday who asked her to drink as much fluid and juice as she possibly could and reduce her dose of Lasix from 20 mg twice a day to once a day. During current hospitalization, patient resume home medications of enalapril, furosemide, metoprolol and hydralazine. Patient seen by cardiology and pulmonology. Refusing to be from central sleep apnea. Currently on ipratropium aerosols every [address] House. Seen by Dr. Chew. Switch to sotalol 80 mg twice daily and diuresis furosemide 40 mg IV twice daily. This morning, patient was found obtunded. PH was 7.17. Retaining CO2. Transfer to ICU and intubated using 20 mg etomidate. 09/16: No acute distress on mechanical ventilation. Arousable but not following commands. Tolerating tube feeding. Decreased urine output. Will Place Coello catheter to monitor accurate I's and O's 09/17: Failed extubation yesterday after 20 minutes. Extremely anxious. Currently on low-dose dexmedetomidine drip and bradycardic. Tube feeds restarted. Urine output has increased. 09/18: Some hemoptysis overnight. Enoxaparin held. Currently on CPAP trials at 40%. Started on vancomycin and aztreonam for fevers. Arousable and follows commands 09/19: Patient failed trial of extubation again yesterday, required bronchoscopy due to bloody secretions from ETT but no active bleeding was seen. 09/20: General surgery consulted for tracheostomy, patient was agreeable when I spoke with her yesterday but her daughter was hesitant. Awaiting their decision. The patient's sputum cultures are positive for MRSA, will consult ID. The patient wrote on a piece of paper to me that she is having hallucinations from precedex. She is requesting that I discontinue this medication. 09/21: No overnight events. Patient became tachypneic and appeared anxious and distressed when I briefly attempted to switch her to spontaneous breathing trial , placed back on AC. Tentatively planned for tracheostomy tomorrow. 09/22: Awake and alert. Remains orally intubated on mechanical ventilation. Awaiting tracheostomy. 09/23: Awake and alert despite being on propofol. Gets anxious. Status post tracheostomy yesterday. Started CPAP trials. Tolerating tube feeds via NG tube 09/24: Tolerating SBT well today. PEEP of 8, 50% FiO2. We will attempt T-piece trials 09/25: No significant events overnight, continue T-piece trials daily 09/26: Currently on vent support/CPAP pressure support of 14. Awake alert following commands 09/27: Tolerating CPAP reduce pressure support. Attempt T piece today. Able to follow commands 09/28: Tolerated T-piece for 2 hours yesterday currently on CPAP. Awake alert tries to talk follows commands. Daughter at the bedside Objective Vital Signs / I&O: Vital Signs 09/27/18 12:04 09/27/18 13:00 09/27/18 13:01 Temperature Pulse Rate 60 61 60 Respiratory Rate 21 19 19 Blood Pressure 93/55 L Pulse Oximetry 09/27/18 14:00 09/27/18 15:00 09/27/18 15:01 Temperature Pulse Rate 67 63 63 Respiratory Rate 18 21 18 Blood Pressure 108/58 L 96/51 L Pulse Oximetry 97 96 96 09/27/18 15:06 09/27/18 16:00 09/27/18 16:01 Temperature Pulse Rate 63 65 65 Respiratory Rate 24 22 20 Blood Pressure 109/56 L Pulse Oximetry 96 96 09/27/18 16:33 09/27/18 16:40 09/27/18 17:00 Temperature Pulse Rate 94 H 80 Respiratory Rate 23 Blood Pressure Pulse Oximetry 96 95 09/27/18 17:01 09/27/18 18:00 09/27/18 18:01 Temperature Pulse Rate 80 80 80 Respiratory Rate 22 24 23 Blood Pressure 122/64 119/58 L Pulse Oximetry 95 96 96 09/27/18 19:00 09/27/18 19:01 09/27/18 19:55 Temperature Pulse Rate 72 74 72 Respiratory Rate 21 27 H 23 Blood Pressure 123/65 Pulse Oximetry 96 95 99 09/27/18 20:00 09/27/18 20:01 09/27/18 21:00 Temperature Pulse Rate 75 72 74 Respiratory Rate 24 23 21 Blood Pressure 126/58 L Pulse Oximetry 93 L 94 L 98 09/27/18 21:01 09/27/18 22:00 09/27/18 22:01 Temperature Pulse Rate 74 66 68 Respiratory Rate 18 21 24 Blood Pressure 119/77 119/71 Pulse Oximetry 98 94 L 98 09/27/18 23:00 09/27/18 23:01 09/28/18 00:00 Temperature Pulse Rate 64 64 65 Respiratory Rate 18 18 18 Blood Pressure 99/58 L 105/70 Pulse Oximetry 100 100 97 09/28/18 01:00 09/28/18 01:01 09/28/18 01:14 Temperature Pulse Rate 62 62 Respiratory Rate 17 17 17 Blood Pressure 96/52 L Pulse Oximetry 98 98 98 09/28/18 02:00 09/28/18 02:01 09/28/18 03:00 Temperature Pulse Rate 67 67 67 Respiratory Rate 23 23 23 Blood Pressure 103/63 Pulse Oximetry 90 L 93 L 97 09/28/18 03:01 09/28/18 03:55 09/28/18 04:00 Temperature Pulse Rate 67 69 Respiratory Rate 22 18 20 Blood Pressure 110/67 Pulse Oximetry 97 97 97 09/28/18 04:01 09/28/18 05:00 09/28/18 05:01 Temperature Pulse Rate 68 68 68 Respiratory Rate 19 19 19 Blood Pressure 128/62 129/69 Pulse Oximetry 97 97 97 09/28/18 06:00 09/28/18 06:01 09/28/18 07:00 Temperature Pulse Rate 70 71 71 Respiratory Rate 22 25 H 20 Blood Pressure 129/71 Pulse Oximetry 98 97 97 09/28/18 07:01 09/28/18 08:00 09/28/18 08:01 Temperature 98.7 F Pulse Rate 70 69 69 Respiratory Rate 20 17 18 Blood Pressure 128/58 L 126/59 L Pulse Oximetry 97 92 L 91 L 09/28/18 09:00 09/28/18 09:01 09/28/18 10:00 Temperature Pulse Rate 73 71 69 Respiratory Rate 23 24 20 Blood Pressure 125/61 Pulse Oximetry 82 L 83 L 97 09/28/18 10:01 Temperature Pulse Rate 69 Respiratory Rate 22 Blood Pressure 125/59 L Pulse Oximetry 97 Intake & Output 09/27/18 09/28/18 09/28/18 18:59 06:59 18:59 Intake Total 1065 / 1065 1929 / 1929 100 / 100 Output Total 600 / 600 700 / 700 Balance 465 / 465 1229 / 1229 100 / 100 Weight 154.5 kg Intake: IV 600 / 600 Zyvox 600 mg Premix 300 ML @ 600 / 600 300 mls/hr IV.SIG Q12H [facility] Rx#: [id number] Tube Feeding 505 / 505 629 / 629 Tube Irrigant 60 / 60 Water Bolus Amount 300 / 300 300 / 300 Free Water Amount 200 / 200 400 / 400 100 / 100 Output: Urine Amount (Catheter) 600 / 600 700 / 700 Female External 600 / 600 700 / 700 Other: Date of Last Bowel Movement 09/25/18 09/25/18 09/25/18 Result Diagrams: 09/28/18 05:23 09/28/18 05:23 Objective Remarks: GENERAL: awake and alert SKIN: No rashes or lesions HEAD: NCAT EYES: PERRL ENT: Mucous membranes pink and moist. NECK: Tracheostomy in place CARDIOVASCULAR: Regular rate and rhythm RESPIRATORY: Diminished breath sounds due to body habitus GASTROINTESTINAL: Abdomen soft, non-tender, obese MUSCULOSKELETAL: Trace nonpitting bilateral lower extremity edema NEUROLOGICAL: RASS 0, awake and alert, nods/ shakes head appropriately to yes/ no questions Assessment and Plan - Assessment and Plan Plan: 63yF presenting with acute hypoxic respiratory failure and failed attempt at extubation x 2 Neuro/Psych: Anxiety disorder Chronic benzodiazepine use PRN ativan for breakthrough anxiety Acetaminophen allergy documented CV: Paroxysmal atrial fibrillation currently normal sinus rhythm Congestive heart failure unknown etiology. Last echocardiogram EF 50-55% Elevated HDL Sotalol 80 mg twice daily started by cardiology several days ago, hold home dose of metoprolol/ hydralazine Currently holding enalapril 20 mg daily in light of hypotension and acute kidney injury Echocardiogram: 09/06/12 - ejection fraction of 50-55% with normal wall motion Myocardial perfusion scan: 09/07/12 - slight ischemia in the LAD distribution with an ejection fraction of 60 Diurese as detailed below Resp: Acute respiratory failure with CO2 retention Obstructive sleep apnea -untreated Previous diagnosis of COPD Obesity hypoventilation syndrome Hemoptysis Bronchoscopy(09/19) with atypical cells on cell block suspicious for squamous cell carcinoma Last PFT showed mild restrictive lung disease. No obstructive component Followed by pulmonology. Currently ipratropium aerosols every 4 hours scheduled Pharmacologic prophylaxis held due to hemoptysis, no source of bleeding noted on bronch 09/18. Resumed DVT prophylaxis Tracheostomy done on 09/22 -Dr. House following for pulmonary-to decide further management for suspicious squamous cell carcinoma on bronchoscopy cell block specimen Continue to attempt to wean to trach collar's daily GI: Gastroesophageal reflux disease Tube feeds- vital high-protein at 65 cc an hour. Likely will be weaned off trach No need of PEG tube placement at this time Famotidine for GI prophylaxis Docusate sodium/senna 1 tablet twice daily for bowel regimen : No indication for Coello Endo: Acute hyperglycemia Sliding scale insulin Accu-Cheks to maintain euglycemia aspart insulin every 6 hours, better controlled on medium algorithm Renal: Acute kidney injury - improving CHAPIS inhibitor discontinued due to KIKE, still on hold as BP is 100s-110s systolic Accurate I's and O's Renal ultrasound only remarkable for incidental renal cyst; urine eosinophils, sodium and creatinine unremarkable Heme: Leukocytosis Normocytic anemia Suspicious squamous cell carcinoma on cell block of bronchoscopy specimen No indication for transfusion of blood products at this time. Monitor CBC daily. Hemoptysis appears to have stopped at this point. Oncology consult for further evaluation of abnormal biopsy from bronchoscopy suspicious for squamous cell carcinoma. ID: 09/15 sputum negative for influenza A and B No growth to date blood cultures x2 09/17 09/18 sputum culture positive for MRSA Empirically started on vancomycin and aztreonam for MRSA pneumonia, 09/18 * ID consulted(Dr. Archuleta), vanco discontinued and patient was started on Zyvox. D/C aztreonam? Infectious disease consultation appreciated FEN: Hypernatremia Replace electrolytes as clinically indicated per ICU electrolyte protocol Continue free water flushes MSK: Elevated BMI Chronic low back pain Weight loss encouraged PT evaluate and treat when extubated Access -Utilize peripheral IV DVT GI prophylaxis -GI -famotidine -DVT -SCD/enoxaparin currently on hold due to hemoptysis and planned procedures. Will restart Lovenox Discussed with family and marriage counsellor, discussed with ID, discussed with MECHANICAL ENGINEERING DIRECTOR. Level 2 Okay to transfer to LTAC when bed available
[2018-09-28] MEDS ORDERED: LORazepam 0.5 MG Tablet NG/OG ONE (13:07)
--- NOTE | 2018-09-28 13:12 | P.DS ---
Date of admission: 09/14/18 06:07 Primary care physician: Malathi Silverman MD Attending physician on discharge: Filomena Williamson Anticipated date of discharge: 09/28/18 Brief History from admission: Patient is a 63-year-old female that presents to the [place] ED with a chief complaint of shortness of breath that has been going on for the past few weeks but in the last 2-3 days it has acutely worsened such that it has been very difficult to breathe and she has noticed that her feet are very swollen. She is having difficulty lying on her side which is how she sleeps, laying flat, or lying on her stomach. She is unable to walk to the bathroom without difficulty. She also complains of worsening tremors in her hands such that she has difficulty holding objects. She has gained 45 pounds in the past 3 -4 months even though she has not been eating more than usual. She did have a lots of Palestinian food yesterday with a friend. She states that she saw her supervisor partial denture department Dr. Silverman on Wednesday who asked her to drink as much fluid and juice as she possibly could and reduce her dose of Lasix from 20 mg twice a day to once a day. Other symptoms that she reports include chronic abdominal pain, drooling and sore throat this morning that resolved with mouthwash. No fever or cough, no increased sputum production although she mentions drooling. Her PCP is Dr. Correia of the [facility]. 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, no alcohol or drug use DS: Diagnosis - Discharge Diagnosis (1) Acute respiratory failure Status: Acute Diagnosis: Principal (2) MRSA pneumonia Status: Acute Diagnosis: Principal (3) Heart failure with preserved ejection fraction Status: Acute Diagnosis: Secondary (4) RAD (obstructive sleep apnea) Status: Acute Diagnosis: Principal (5) Hypertension Status: Acute Diagnosis: Secondary (6) COPD (chronic obstructive pulmonary disease) Status: Acute Diagnosis: Secondary (7) GERD (gastroesophageal reflux disease) Status: Acute Diagnosis: Secondary (8) Afib Status: Acute Diagnosis: Secondary (9) Anxiety Status: Acute Diagnosis: Secondary (10) Tremors of nervous system Status: Acute Diagnosis: Secondary (11) Chronic back pain Status: Acute Diagnosis: Secondary (12) Anemia Status: Acute Diagnosis: Secondary (13) Abnormal cytology Status: Acute Diagnosis: Secondary DS: Summary Hospital Course: 63-year-old female presented with shortness of breath presumed to be due to CHFpEF but likely related to her chronic obstructive sleep apnea. The patient was noted to be obtunded 09/15 with acute respiratory failure and marked CO2 retention requiring emergent intubation with mechanical ventilation. On 09/18, bronchoscopy was performed with removal of copious amounts of mucus mixed with bright red blood from both bronchi. She was also started empirically on vancomycin and aztreonam due to fevers. Bronchial washings and sputum grew MRSA, but her fever did not improve on Vancomycin. ID was consulted on 2018 and switched her to Linezolid and aztreonam with marked improvement seen. In addition, right middle lobe bronchial washings from 09/20/2018 was noted to be suspicious for squamous cell carcinoma. Oncology was consulted and determined that she was not a candidate for any further intervention at this time due to her respiratory status. Tracheostomy tube was placed on 09/22/18. She slowly improved daily and continued to undergo CPAP and T-piece trials until she was eventually weaned off mechanical ventilation but remained on CPAP. Tube feeds were continued during her hospital stay. She was discharged in stable condition to [facility] for aggressive cardiopulmonary rehab. - Time Spent with Patient Total time spent providing and/or coordinating discharge services: Less than 30 minutes - Quality: VTE Deep Vein Thrombosis/Pulmonary Embolism Present on Admission: No Exam Vital signs: Vital Signs 09/27/18 14:00 09/27/18 15:00 09/27/18 15:01 Temperature Pulse Rate 67 63 63 Respiratory Rate 18 21 18 Blood Pressure 108/58 L 96/51 L Pulse Oximetry 97 96 96 09/27/18 15:06 09/27/18 16:00 09/27/18 16:01 Temperature Pulse Rate 63 65 65 Respiratory Rate 24 22 20 Blood Pressure 109/56 L Pulse Oximetry 96 96 09/27/18 16:33 09/27/18 16:40 09/27/18 17:00 Temperature Pulse Rate 94 H 80 Respiratory Rate 23 Blood Pressure Pulse Oximetry 96 95 09/27/18 17:01 09/27/18 18:00 09/27/18 18:01 Temperature Pulse Rate 80 80 80 Respiratory Rate 22 24 23 Blood Pressure 122/64 119/58 L Pulse Oximetry 95 96 96 09/27/18 19:00 09/27/18 19:01 09/27/18 19:55 Temperature Pulse Rate 72 74 72 Respiratory Rate 21 27 H 23 Blood Pressure 123/65 Pulse Oximetry 96 95 99 09/27/18 20:00 09/27/18 20:01 09/27/18 21:00 Temperature Pulse Rate 75 72 74 Respiratory Rate 24 23 21 Blood Pressure 126/58 L Pulse Oximetry 93 L 94 L 98 09/27/18 21:01 09/27/18 22:00 09/27/18 22:01 Temperature Pulse Rate 74 66 68 Respiratory Rate 18 21 24 Blood Pressure 119/77 119/71 Pulse Oximetry 98 94 L 98 09/27/18 23:00 09/27/18 23:01 09/28/18 00:00 Temperature Pulse Rate 64 64 65 Respiratory Rate 18 18 18 Blood Pressure 99/58 L 105/70 Pulse Oximetry 100 100 97 09/28/18 01:00 09/28/18 01:01 09/28/18 01:14 Temperature Pulse Rate 62 62 Respiratory Rate 17 17 17 Blood Pressure 96/52 L Pulse Oximetry 98 98 98 09/28/18 02:00 09/28/18 02:01 09/28/18 03:00 Temperature Pulse Rate 67 67 67 Respiratory Rate 23 23 23 Blood Pressure 103/63 Pulse Oximetry 90 L 93 L 97 09/28/18 03:01 09/28/18 03:55 09/28/18 04:00 Temperature Pulse Rate 67 69 Respiratory Rate 22 18 20 Blood Pressure 110/67 Pulse Oximetry 97 97 97 09/28/18 04:01 09/28/18 05:00 09/28/18 05:01 Temperature Pulse Rate 68 68 68 Respiratory Rate 19 19 19 Blood Pressure 128/62 129/69 Pulse Oximetry 97 97 97 09/28/18 06:00 09/28/18 06:01 09/28/18 07:00 Temperature Pulse Rate 70 71 71 Respiratory Rate 22 25 H 20 Blood Pressure 129/71 Pulse Oximetry 98 97 97 09/28/18 07:01 09/28/18 08:00 09/28/18 08:01 Temperature 98.7 F Pulse Rate 70 69 69 Respiratory Rate 20 17 18 Blood Pressure 128/58 L 126/59 L Pulse Oximetry 97 92 L 91 L 09/28/18 09:00 09/28/18 09:01 09/28/18 10:00 Temperature Pulse Rate 73 71 69 Respiratory Rate 23 24 20 Blood Pressure 125/61 Pulse Oximetry 82 L 83 L 97 09/28/18 10:01 09/28/18 11:00 09/28/18 11:01 Temperature Pulse Rate 69 71 66 Respiratory Rate 22 16 25 H Blood Pressure 125/59 L 132/61 Pulse Oximetry 97 96 96 09/28/18 11:31 09/28/18 12:00 09/28/18 12:01 Temperature Pulse Rate 72 75 74 Respiratory Rate 32 H 19 30 H Blood Pressure 126/68 119/82 Pulse Oximetry 09/28/18 12:07 09/28/18 12:57 Temperature Pulse Rate 76 Respiratory Rate 19 Blood Pressure Pulse Oximetry 96 Intake & Output 09/27/18 09/28/18 09/28/18 18:59 06:59 18:59 Intake Total 1065 / 1065 1929 / 1929 100 / 100 Output Total 600 / 600 700 / 700 Balance 465 / 465 1229 / 1229 100 / 100 Weight 154.5 kg Intake: IV 600 / 600 Zyvox 600 mg Premix 300 ML @ 600 / 600 300 mls/hr IV.SIG Q12H [facility] Rx#: [id number] Tube Feeding 505 / 505 629 / 629 Tube Irrigant 60 / 60 Water Bolus Amount 300 / 300 300 / 300 Free Water Amount 200 / 200 400 / 400 100 / 100 Output: Urine Amount (Catheter) 600 / 600 700 / 700 Female External 600 / 600 700 / 700 Other: Date of Last Bowel Movement 09/25/18 09/25/18 09/25/18 Narrative: Narrative: GENERAL: Awake and alert, trach collar in place SKIN: Warm and dry. HEENT: Atraumatic. Normocephalic. Pupils equal and round. EOMI. No scleral icterus. No injection or drainage. CARDIOVASCULAR: Regular rate and rhythm. No murmur appreciated. RESPIRATORY: Improved air movement, no increased work of breathing. Otherwise, clear to auscultation GASTROINTESTINAL: Abdomen soft, nondistended. Bowel sounds are present EXTREMITIES: Early venous stasis changes noted bilaterally. Bilateral 1+ pitting pre-tibial edema. Results Procedures completed during hospitalization: Endotracheal intubation Bronchoscopy with washings Labs on day of discharge: Labs from last 24 hours 09/28/18 09/28/18 09/28/18 05:53 05:23 05:23 WBC 6.6 RBC 3.13 L Hgb 8.6 L Hct 26.5 L MCV 84.6 MCH 27.6 MCHC 32.6 RDW 16.1 Plt Count 363 MPV 7.1 Sodium 143 Potassium 4.0 Chloride 107 Carbon Dioxide 32.3 H Anion Gap 4 L BUN 6 L Creatinine 0.63 Estimated GFR Greater than 89 POC Glucose 123 H Random Glucose 117 H Calcium 8.3 L Phosphorus 2.4 L 09/27/18 09/27/18 23:53 17:31 WBC RBC Hgb Hct MCV MCH MCHC RDW Plt Count MPV Sodium Potassium Chloride Carbon Dioxide Anion Gap BUN Creatinine Estimated GFR POC Glucose 132 H 145 H Random Glucose Calcium Phosphorus Preliminary micro results at discharge 09/18/18 13:00 Fungal Culture - Preliminary Bronchial Washings - Right Middle Lobe No growth in 1 week 09/18/18 13:00 Mycobacterial Culture - Preliminary Bronchial Washings - Right Middle Lobe No growth in 1 week - Impressions ITS Impressions Abdomen/Bladder Ultrasound 09/16/18 08:29 CONCLUSION: 1. Negative renal sonogram other than right renal cyst. Abdomen/Pelvis CT 09/20/18 00:00 CONCLUSION: 1. No acute abnormality demonstrated within the abdomen or pelvis. 2. There is an area of nonspecific subcutaneous edema and induration of the left lateral flank. This could be cellulitis but is not typical of an organized abscess at this time. Chest CT 09/20/18 00:00 CONCLUSION: 1. There is elevation of left hemidiaphragm with compressive atelectasis and consolidation of the left lower lobe. 2. Patchy right upper lobe groundglass infiltrate in right lower lobe posterior basilar consolidation. Abdomen X-Ray 09/23/18 00:00 CONCLUSION: Tip of the NG tube in the fundus of the stomach. Chest X-Ray 09/27/18 06:00 CONCLUSION: 1. Elevation left hemidiaphragm with bibasilar densities. 2. Cardiomegaly. Discharge Plan - Discharge Disposition Patient Disposition: Disch To Another Hospital - Discharge Condition Condition: Stable - Discharge Order Discharge Orders: Discharge Order (Routine); Ordered 09/28/18 Ordered By: Soha Giraldo ED Use Only Admit Order (Routine); Ordered 09/14/18 Ordered By: Thad Bernardo - Discharge Details Anticipated Discharge Date: 09/28/18 - Physicians Team Primary Care Provider: Malathi Silverman Attending Provider: Filomena Williamson Other Providers: Keith Chew MD ; Harsh House MD ; Manuel Michele MD ; Emily Zhong MD ; Jessi Archuleta MD ; Gwyn Anders MD ; [facility]
== END 2018-09-28 15:34 | disposition short-term general hospital (02) | DRG 3 ==
LOC: NEPE 02:35 → NEDA 02:35 → NEPGCP 08:11 → N04 13:30 → HIMC 09-15 08:30
PROVIDERS: ADMIT Family Medicine; ATTEND Family Medicine
CPT/HCPCS: 31500; 31624; 36600; 71010; 71045; 71260; 74000; 74018; 74177; 76775; 76937; 80048; 80053; 80061; 81001; 82570; 82805; 82948; 82962; 83520; 83735; 83880; 84100; 84132; 84145; 84300; 84443; 84484; 85025; 85027; 85610; 85730; 86403; 87015; 87040; 87070; 87102; 87116; 87147; 87186; 87205; 87206; 87275; 87276; 87641; 87804; 88112; 88305; 89051; 92610; 93005; 94002; 94003; 94060; 94640; 94656; 94657; 94664; 94665; 94750; 94799; 97110; 97162; 97530; 99285; A7521; G0195; J0131; J0171; J1650; J1815; J1940; J2020; J2250; J2704; J2765; J3010; J3370; J3480; J7030; J7040; J7050; P9047; Q9963; Q9967; S0171